=== PATIENT | female | born 1990 | race Caucasian/White ===

== ENCOUNTER 2021-01-29 02:54 | Emergency (ER) | payer OTHER, SELFPAY ==
--- NOTE | ~2021-01-29 | XR_ITS ---
EXAMINATION: XR ANKLE, RIGHT CLINICAL INFORMATION: Ankle pain COMPARISON: None TECHNIQUE: 3 views of the right ankle. FINDINGS: Osseous alignment is anatomic. No acute fracture is seen. No significant effusion. There is mild soft tissue swelling at the ankle. XR/XR ankle RT min 3V IMPRESSION: No acute osseous findings. Mild soft tissue swelling.
--- NOTE | 2021-01-29 06:30 | PC.NURSE ---
SEE PAPER DOCUMENTATION. RIGHT ANKLE WRAPPED WITH ANA M WRAP. PT BROUGHT TO FRONT ENTRANCE IN FOR RIDE TO [facility] BY HOSPITAL SHUTTLE.
--- NOTE | 2021-01-29 06:35 | ED.LOWEXIN ---
HPI - Extremity Injury (Lower) General Time Seen by Provider: 01/29/21 06:29 History of Present Illness HPI Narrative: SEE DOWN TIME PAPERWORK Related Data Allergies Allergy/AdvReac Type Severity Reaction Status Date / Time Penicillins [PENICILLINS] Allergy Severe ANAPHYLAXIS Unverified 05/09/20 17:17 soap [SOAP] Allergy Intermediate ITCHING Unverified 05/09/20 17:17 acetaminophen [From TYLENOL] Allergy Unknown ANAPHYLAXIS Unverified 05/09/20 17:17 aspirin [ASA] Allergy Unknown ANAPHYLAXIS Unverified 05/09/20 17:17 latex [LATEX] Allergy Unknown ANAPHYLAXIS Unverified 05/09/20 17:17 Latex Allergy Unknown anaphylaxis Unverified 02/08/20 00:00 tramadol [TRAMADOL] Allergy Unknown HIVES Unverified 05/09/20 17:17 / cats Allergy Unknown moderately Uncoded 01/05/13 00:00 severe Shellfish Allergy Unknown Uncoded 02/08/20 00:00 tramadol Allergy Unknown rash Uncoded 01/05/13 00:00 PMFSH Social History Social History Advance Directives: No Advance Directives Information Provided: No
== END 2021-01-29 06:56 | disposition home or self-care (01) ==
PROVIDERS: Emergency Provider Student in an Organized Health Care Education/Training Program
DX: S93.401A Sprain of unspecified ligament of right ankle, initial encounter (principal); S60.512A Abrasion of left hand, initial encounter; S60.511A Abrasion of right hand, initial encounter; S96.911A Strain of unspecified muscle and tendon at ankle and foot level, right foot, initial encounter; Y04.2XXA Assault by strike against or bumped into by another person, initial encounter; Y93.01 Activity, walking, marching and hiking; Y92.414 Local residential or business street as the place of occurrence of the external cause; Y99.9 Unspecified external cause status
CPT/HCPCS: 73610; 99283

== ENCOUNTER 2021-03-06 17:42 | Emergency (ER) | payer OTHER, SELFPAY ==
[2021-03-06 17:43] VITALS: BP 122/91; PULSE 110; RESP 18; TEMP 36.6; O2SAT 99; BMI 16.6
== END 2021-03-06 18:48 | disposition left against medical advice (07) ==
PROVIDERS: Emergency Provider Emergency Medicine
DX: F19.90 Other psychoactive substance use, unspecified, uncomplicated (principal)
CPT/HCPCS: 99281

== ENCOUNTER 2021-03-26 22:14 | Emergency (ER) | payer OTHER, SELFPAY ==
[2021-03-26 22:24] VITALS: BP 101/73; PULSE 117; RESP 24; TEMP 36.6; O2SAT 99; BMI 17.3
[2021-03-26] MEDS: LORazepam 1 MG TABLET 2 MG PO (22:50)
--- NOTE | 2021-03-26 23:05 | PC.NURSE ---
BHN referral completed via telephone by speaking with Renée overnight continuous improvement specialist, no ETA at this time, patient reported anxiety 5/10, HR 117, provider notified/ordered Ativan 2 mg/ administered as ordered/pending effect, will continue to monitor.
[2021-03-26 23:22] LABS: MANUAL DIFF FLAG NO
[2021-03-26 23:24] LABS: Basophils Percent Auto 0.3 % (0-2); Eosinophils Absolute Auto 0.1 X10*3/uL (0.0-0.4); Eosinophils Percent Auto 0.5 % (0-4); Hematocrit 33.6 % (37-47); Hemoglobin 11.2 g/dl (12.0-16.0); Imm Gran Abs Auto 0.03 X10*3/uL (0.00-0.03); Imm Gran Pct Auto 0.3 % (0.0-0.4); Lymphocytes Absolute Auto 1.2 X10*3/uL (1.2-4.9); Lymphocytes Percent Auto 11.1 % (20-40); Mean Corpuscular HGB Conc 33.3 g/dl (31.0-35.0); Mean Corpuscular Volume 78.1 fL (80-98); Mean Platelet Volume 8.9 fL (9.4-12.3); Monocytes Absolute Auto 0.5 X10*3/uL (0.1-1.2); Monocytes Percent Auto 4.6 % (2-11); Neutrophils Absolute Auto 9.1 X10*3/uL (2.0-8.3); Neutrophils Percent Auto 83.2 % (45-73); Platelet Count 394 X10*3/uL (160-400); Red Cell Distribution Width 14.3 % (11.0-16.0)
[2021-03-26 23:25] LABS: Glucose Urine UA NEG (NEG); Leukocyte Esterase Urine 1+ (NEG); Nitrite Urine NEG (NEG); Specific Gravity - Urine >= 1.030 (1.005-1.025); UACC Culture Trigger YES; Urine Blood 1+ (NEG); Urine Ketones NEG (NEG); Urine Protein 2+ MG/DL (NEG-TRACE)
[2021-03-26 23:35] LABS: COVID-19 Test Negative (Negative); IDNOW Serial# 9DD0AD1C
[2021-03-26 23:36] LABS: UPreg QC Valid YES; Urine Pregnancy NEGATIVE (NEGATIVE)
[2021-03-26 23:38] LABS: Appearance Urine HAZY; Color Urine YELLOW
[2021-03-26 23:46] LABS: Ethanol < 10 mg/dL
[2021-03-26 23:48] LABS: Amphetamine Screen Urine Not Detected (Not Detect); Barbiturates, Urine Not Detected (Not Detect); Benzodiazepines Screen Urine Not Detected (Not Detect); Cannabinoid Screen Urine Not Detected (Not Detect); Cocaine Screen Urine POSITIVE (Not Detect); Opiate Screen Urine POSITIVE (Not Detect); Phencyclidine Screen Urine Not Detected (Not Detect)
[2021-03-26 23:49] LABS: Bacteria Urine TRACE /LPF; Mucus Urine TRACE /LPF; Squamous Epithelial Cell Urine 2+ /LPF; UACC CULT YES
[2021-03-26 23:50] LABS: Alanine Aminotransferase 14 U/L (0-31); Albumin Level 3.8 g/dL (3.5-5.0); Alkaline Phosphatase 105 U/L (39-117); Anion Gap 13 (12-20); Aspartate Amino Transferase 25 U/L (5-31); Bilirubin Direct 0.2 mg/dL (0.0-0.5); Bilirubin Total 0.3 mg/dL (0.0-1.0); Blood Urea Nitrogen 11 mg/dL (9-16); Carbon Dioxide 27 mmol/L (22-29); Chloride 99 mmol/L (96-108); Creatinine Clr Calc Pharmacy 73.1; Estimated Glomerular Filt Rate > 60; Glucose Random 110 mg/dL (60-115); Magnesium 2.3 mg/dL (1.6-2.6); Potassium 3.6 mmol/L (3.3-5.1); Sodium 135 mmol/L (135-145); Total Protein 8.6 g/dL (6.5-8.0)
[2021-03-26 23:50] LABS: Granular Casts Urine 0-2 /LPF
--- NOTE | 2021-03-27 00:28 | MHC.CARE ---
Pt is a 30 year old female who presents to [facility] [place] EMS and [facility]PD. Pt reportedly went to a store and called PD reporting that someone is following her . Pt was observed with no shoes on. Pt arrived to [facility] visibly anxious and was given ativan. CARE team attempted to assess pt. pt reports she came to ED because I felt unsafe I was running away from someone that was following me . Pt reports she does not know the person and this has happened 2-3 times. She reports feeling scared and unsafe. Pt asks this greeting card writer more than once if clinician can come back because she is feeling too sleepy and is not used to ativan . She states she would like to provide more accurate information when she is more alert and awake. Pt refused to provide additional information and not able to be interviewed at this time. Pt's tox screen was positive for opiates and cocaine. Unknown if this is substance use related and should be assessed tomorrow once more alert.
--- NOTE | 2021-03-27 00:31 | PC.NURSE ---
Patient appropriately refused to comply with care team assessment because she thinks she is tired and sleepy at this time, wont be able to express her concerns in rightful manner. VSS. Denied distress. Will continue to monitor.
[2021-03-27 00:32] VITALS: BP 96/55; PULSE 90; RESP 16; TEMP 36.5; O2SAT 99
--- NOTE | 2021-03-27 01:19 | ED_ITS ---
HPI - Psych General Chief Complaint: Psychiatric Symptoms Stated Complaint: Psych Eval Time Seen by Provider: 03/26/21 22:47 Source: patient Mode of arrival: ambulatory Limitations: no limitations History of Present Illness HPI Narrative: Patient brought to the ED for delusions. Patient thinks drug dealers or comming after her because they think they told the [employer] about the location. Patient did not see anyone chasing her, but felt somebody coming after so she ran out from the building and life management teacher were called. Patient admits to drug use. Related Data Allergies Allergy/AdvReac Type Severity Reaction Status Date / Time Penicillins [PENICILLINS] Allergy Severe ANAPHYLAXIS Unverified 05/09/20 17:17 soap [SOAP] Allergy Intermediate ITCHING Unverified 05/09/20 17:17 acetaminophen [From TYLENOL] Allergy Unknown ANAPHYLAXIS Unverified 05/09/20 17:17 aspirin [ASA] Allergy Unknown ANAPHYLAXIS Unverified 05/09/20 17:17 latex [LATEX] Allergy Unknown ANAPHYLAXIS Unverified 05/09/20 17:17 Latex Allergy Unknown anaphylaxis Unverified 02/08/20 00:00 tramadol [TRAMADOL] Allergy Unknown HIVES Unverified 05/09/20 17:17 / cats Allergy Unknown moderately Uncoded 01/05/13 00:00 severe Shellfish Allergy Unknown Uncoded 02/08/20 00:00 tramadol Allergy Unknown rash Uncoded 01/05/13 00:00 Review of Systems Review of Systems: Yes all other systems are reviewed and are negative Constitutional: Constitutional: Reports as per HPI and Reports no additional constitutional complaints Eyes: Eyes: Reports as per HPI and Reports no additional eye complaints ENT: Reports system reviewed and no additional complaints, except as documented and Reports as per HPI Cardiovascular: Cardiovascular: Reports as per HPI and Reports no additional cardiovascular complaints Respiratory: Respiratory: Reports as per HPI and Reports no additional respiratory complaints Gastrointestinal: Gastrointestinal: Reports as per HPI and Reports no additional gastrointestinal complaints Genitourinary: Genitourinary: Reports no additional female genitourinary complaints and Reports as per HPI Musculoskeletal: Musculoskeletal: Reports no additional musculoskeletal co mplaints and Reports as per HPI Integumentary/Breasts: Skin/Breast: Reports system reviewed and no additional complaints, except as docu and Reports as per HPI Neurologic: Reports system reviewed and no additional complaints, except as documented and Reports as per HPI Psychiatric: Psychiatric: Reports no additional psychiatric complaints and Reports as per HPI Comments: Delusional [facility] Past Medical History Medical History (Updated 03/27/21 @ 01:23 by LAINE Mcmahon) Substance abuse Social History Social History Advance Directives: No Advance Directives Information Provided: Yes Patient : No Physical Exam Vital Signs: Vital Signs: Last Vital Signs Temp 97.7 F 03/27/21 00:32 Pulse 90 03/27/21 00:32 Resp 16 03/27/21 00:32 BP 96/55 L 03/27/21 00:32 Pulse Ox 99 03/27/21 00:32 Body Mass Index 17.3 Const: General: cooperative, healthy appearing, comfortable, no acute distress, well developed, alert and awake Orientation/consciousness: patient oriented x3 HENMT: Head: Yes normal to inspection, Yes No palpable skull fracture present, Yes normocephalic and Yes atraumatic Eyes: General: appearance normal, both eyes and all related structures Neck: Neck: Yes normal visual inspection, Yes full ROM and Yes no meningeal signs Chest: Chest palpation & inspection: normal inspection of the chest and normal palpation of entire chest wall Resp: Effort & Inspection: normal respiratory effort and able to speak in complete sentences Auscultation: clear to auscultation bilaterally Cardio: Jugular venous distension: no JVD Heart sounds: S1 normal heart sound present and S2 normal heart sound present GI: Inspection: Yes normal to inspection Palpation (GI): Soft to palpation, not firm, nontender, no guarding and not rigid : General: No CVA tenderness and Yes no CVA tenderness Back/Spine/Pelvis: Back: no CVA tenderness, No CVA tenderness and No back tenderness Skin: General skin exam: no rashes or lesions noted and elasticity normal Neuro: General: patient oriented x3, gait normal, tone normal, no meningeal signs and CN's II-XI intact bilaterally Cranial nerves: Yes CN's II-XII intact bilaterally Extrem: General: Yes normal to inspection and Yes full ROM Psych: Other: Delusional. Paranoid Appearance: disheveled Course Course Course Narrative: Patient have labs drawn. Reevaluation(s) Reevaluation #1: Patient will be waiting for [facility] evaluation morning Time: 01:22 MDM - Psych MDM Narrative Medical decision making narrative: Delusional paranoid Lab Data Result diagrams: 03/26/21 23:16 03/26/21 23:16 Labs: Lab Results 03/26/21 03/26/21 03/26/21 Range/Units 23:05 23:05 23:05 WBC (4.8-10.8) X10*3/uL RBC (4.20-5.50) X10*6/uL Hgb (12.0-16.0) g/dl Hct (37-47) % MCV (80-98) fL MCH (27.0-33.0) pg MCHC (31.0-35.0) g/dl RDW (11.0-16.0) % Plt Count (160-400) X10*3/uL MPV (9.4-12.3) fL Immature Gran % (Auto) (0.0-0.4) % Neut % (Auto) (45-73) % Lymph % (Auto) (20-40) % Young % (Auto) (2-11) % Eos % (Auto) (0-4) % Baso % (Auto) (0-2) % Lymph # (Auto) (1.2-4.9) X10*3/uL Young # (Auto) (0.1-1.2) X10*3/uL Eos # (Auto) (0.0-0.4) X10*3/uL Baso # (Auto) (0.0-0.2) X10*3/uL Abs Immat Gran (auto) (0.00-0.03) X10*3/uL Absolute Neuts (auto) (2.0-8.3) X10*3/uL Absolute Nucleated RBC (0.0-0.012) X10*3/uL Nucleated RBC % (auto) (0.0-0.2) /100WBC Sodium (135-145) mmol/L Potassium (3.3-5.1) mmol/L Chloride (96-108) mmol/L Carbon Dioxide (22-29) mmol/L Anion Gap (12-20) BUN (9-16) mg/dL Creatinine (0.5-1.4) mg/dL Estim Creat Clear Calc Estimated GFR Random Glucose (60-115) mg/dL Calcium (8.4-10.2) mg/dL Magnesium (1.6-2.6) mg/dL Total Bilirubin (0.0-1.0) mg/dL Direct Bilirubin (0.0-0.5) mg/dL AST (5-31) U/L ALT (0-31) U/L Alkaline Phosphatase (39-117) U/L Total Protein (6.5-8.0) g/dL Albumin (3.5-5.0) g/dL Urine Color YELLOW Urine Appearance HAZY Urine pH 6.0 (5.0-8.0) Ur Specific [place] >= 1.030 H (1.005-1.025) Urine Protein 2+ H (NEG-TRACE) MG/DL Urine Glucose (UA) NEG (NEG) MG/DL Urine Ketones NEG (NEG) MG/DL Urine Blood 1+ H (NEG) Urine Nitrite NEG (NEG) Ur Leukocyte Esterase 1+ H (NEG) Urine RBC 1-4 (0) /HPF Urine WBC 10-14 H (0-4) /HPF Ur Squamous Epith Cells 2+ /LPF Urine Bacteria TRACE /LPF Granular Casts 0-2 /LPF Urine Mucus TRACE /LPF Urine Test NEGATIVE (NEGATIVE) Urine Opiates Screen (Not Detect) Ur Barbiturates Screen (Not Detect) Ur Phencyclidine Scrn (Not Detect) Ur Amphetamines Screen (Not Detect) U Benzodiazepines Scrn (Not Detect) Urine Cocaine Screen (Not Detect) U Marijuana (THC) Screen (Not Detect) Ethyl Alcohol mg/dL COVID-19 (ANGIE) Negative (Negative) COVID-19 Clin Com See Note 03/26/21 03/26/21 03/26/21 Range/Units 23:05 23:16 23:16 WBC 11.0 H (4.8-10.8) X10*3/uL RBC 4.30 (4.20-5.50) X10*6/uL Hgb 11.2 L (12.0-16.0) g/dl Hct 33.6 L (37-47) % MCV 78.1 L (80-98) fL MCH 26.0 L (27.0-33.0) pg MCHC 33.3 (31.0-35.0) g/dl RDW 14.3 (11.0-16.0) % Plt Count 394 (160-400) X10*3/uL MPV 8.9 L (9.4-12.3) fL Immature Gran % (Auto) 0.3 (0.0-0.4) % Neut % (Auto) 83.2 H (45-73) % Lymph % (Auto) 11.1 L (20-40) % Young % (Auto) 4.6 (2-11) % Eos % (Auto) 0.5 (0-4) % Baso % (Auto) 0.3 (0-2) % Lymph # (Auto) 1.2 (1.2-4.9) X10*3/uL Young # (Auto) 0.5 (0.1-1.2) X10*3/uL Eos # (Auto) 0.1 (0.0-0.4) X10*3/uL Baso # (Auto) 0.0 (0.0-0.2) X10*3/uL Abs Immat Gran (auto) 0.03 (0.00-0.03) X10*3/uL Absolute Neuts (auto) 9.1 H (2.0-8.3) X10*3/uL Absolute Nucleated RBC 0.000 (0.0-0.012) X10*3/uL Nucleated RBC % (auto) 0.0 (0.0-0.2) /100WBC Sodium 135 (135-145) mmol/L Potassium 3.6 (3.3-5.1) mmol/L Chloride 99 (96-108) mmol/L Carbon Dioxide 27 (22-29) mmol/L Anion Gap 13 (12-20) BUN 11 (9-16) mg/dL Creatinine 0.83 (0.5-1.4) mg/dL Estim Creat Clear Calc 73.1 Estimated GFR > 60 Random Glucose 110 (60-115) mg/dL Calcium 9.0 (8.4-10.2) mg/dL Magnesium 2.3 (1.6-2.6) mg/dL Total Bilirubin 0.3 (0.0-1.0) mg/dL Direct Bilirubin 0.2 (0.0-0.5) mg/dL AST 25 (5-31) U/L ALT 14 (0-31) U/L Alkaline Phosphatase 105 (39-117) U/L Total Protein 8.6 H (6.5-8.0) g/dL Albumin 3.8 (3.5-5.0) g/dL Urine Color Urine Appearance Urine pH (5.0-8.0) Ur Specific [place] (1.005-1.025) Urine Protein (NEG-TRACE) MG/DL Urine Glucose (UA) (NEG) MG/DL Urine Ketones (NEG) MG/DL Urine Blood (NEG) Urine Nitrite (NEG) Ur Leukocyte Esterase (NEG) Urine RBC (0) /HPF Urine WBC (0-4) /HPF Ur Squamous Epith Cells /LPF Urine Bacteria /LPF Granular Casts /LPF Urine Mucus /LPF Urine Test (NEGATIVE) Urine Opiates Screen POSITIVE H (Not Detect) Ur Barbiturates Screen Not Detected (Not Detect) Ur Phencyclidine Scrn Not Detected (Not Detect) Ur Amphetamines Screen Not Detected (Not Detect) U Benzodiazepines Scrn Not Detected (Not Detect) Urine Cocaine Screen POSITIVE H (Not Detect) U Marijuana (THC) Screen Not Detected (Not Detect) Ethyl Alcohol mg/dL COVID-19 (ANGIE) (Negative) COVID-19 Clin Com 03/26/21 Range/Units 23:16 WBC (4.8-10.8) X10*3/uL RBC (4.20-5.50) X10*6/uL Hgb (12.0-16.0) g/dl Hct (37-47) % MCV (80-98) fL MCH (27.0-33.0) pg MCHC (31.0-35.0) g/dl RDW (11.0-16.0) % Plt Count (160-400) X10*3/uL MPV (9.4-12.3) fL Immature Gran % (Auto) (0.0-0.4) % Neut % (Auto) (45-73) % Lymph % (Auto) (20-40) % Young % (Auto) (2-11) % Eos % (Auto) (0-4) % Baso % (Auto) (0-2) % Lymph # (Auto) (1.2-4.9) X10*3/uL Young # (Auto) (0.1-1.2) X10*3/uL Eos # (Auto) (0.0-0.4) X10*3/uL Baso # (Auto) (0.0-0.2) X10*3/uL Abs Immat Gran (auto) (0.00-0.03) X10*3/uL Absolute Neuts (auto) (2.0-8.3) X10*3/uL Absolute Nucleated RBC (0.0-0.012) X10*3/uL Nucleated RBC % (auto) (0.0-0.2) /100WBC Sodium (135-145) mmol/L Potassium (3.3-5.1) mmol/L Chloride (96-108) mmol/L Carbon Dioxide (22-29) mmol/L Anion Gap (12-20) BUN (9-16) mg/dL Creatinine (0.5-1.4) mg/dL Estim Creat Clear Calc Estimated GFR Random Glucose (60-115) mg/dL Calcium (8.4-10.2) mg/dL Magnesium (1.6-2.6) mg/dL Total Bilirubin (0.0-1.0) mg/dL Direct Bilirubin (0.0-0.5) mg/dL AST (5-31) U/L ALT (0-31) U/L Alkaline Phosphatase (39-117) U/L Total Protein (6.5-8.0) g/dL Albumin (3.5-5.0) g/dL Urine Color Urine Appearance Urine pH (5.0-8.0) Ur Specific [place] (1.005-1.025) Urine Protein (NEG-TRACE) MG/DL Urine Glucose (UA) (NEG) MG/DL Urine Ketones (NEG) MG/DL Urine Blood (NEG) Urine Nitrite (NEG) Ur Leukocyte Esterase (NEG) Urine RBC (0) /HPF Urine WBC (0-4) /HPF Ur Squamous Epith Cells /LPF Urine Bacteria /LPF Granular Casts /LPF Urine Mucus /LPF Urine Test (NEGATIVE) Urine Opiates Screen (Not Detect) Ur Barbiturates Screen (Not Detect) Ur Phencyclidine Scrn (Not Detect) Ur Amphetamines Screen (Not Detect) U Benzodiazepines Scrn (Not Detect) Urine Cocaine Screen (Not Detect) U Marijuana (THC) Screen (Not Detect) Ethyl Alcohol < 10 mg/dL COVID-19 (ANGIE) (Negative) COVID-19 Clin Com Discharge Plan Discharge Clinical Impression: Delusional disorder
--- NOTE | 2021-03-27 05:55 | PC.NURSE ---
Patient in bed appears sleeping, no distress observed/reported, patient refused to talk to care team, awaiting BHN evaluation in the morning, med compliant, patient is not on any medication at this time, VSS, will continue to monitor
--- NOTE | 2021-03-27 07:03 | PC.NURSE ---
patient appears to remain at rest at present, patient appears in no distress, respirations are even and unlabored
--- NOTE | 2021-03-27 09:42 | MHC.CARE ---
899 CARE Team attempted to meet with patient in 2, she would not engage in an interview said she was not feeling well. 929 Patient sitting up in bed eating breakfast stated, I feel like crap, asked if she takes Methadone or Suboxone, she reported getting methadone from [facility] in [place] but has not taken it in a while, did not remember last time. Decline to answer any questions about her mental health, how we can be of help to her. Updated RN about MAT.
[2021-03-27 09:43] VITALS: BP 120/61; PULSE 83; RESP 16; TEMP 36.9; O2SAT 100
--- NOTE | 2021-03-27 09:49 | PC.NURSE ---
per care team request t/w attempted to verify dose at [facility], left message. inquired to patient last dose and client stated she was on 75mg but may not have gone for >7days
[2021-03-27] MEDS: Nitrofurantoin Monohyd/M-Cryst 100 MG CAPSULE PO (10:01)
--- NOTE | 2021-03-27 12:19 | MHC.CARE ---
Patient is a 30 year-old single, woman who was brought to the ED by ambulance in the community; she had reported that she was being followed by someone and was afraid. In an interview with the CARE Team, patient explained that after she bought heroin last night a man was following her and she felt unable to get away safely so she sought help from the police. She expressed an understanding that her drug use consistently puts her in dangerous situations and stated she would like help to make changes. Patient was alert and oriented, engaged easily after getting some needed rest. Appeared thin and disheveled, maintained appropriate eye contact, was calm and cooperative, spoke softly and was polite. Patient denied any psychotic symptoms such as hallucinations and did not appear to be delusional or preoccupied by internal stimuli. Reported that she has no history of suicide attempts or gestures, has never been hospitalized for psychiatric reasons, is future oriented and denied having thoughts to end her life. Patient is not having a mental health crisis and no further intervention from the clinical team is indicated; she is referred to the Recovery Team for detox placement.
--- NOTE | 2021-03-27 12:30 | MHC.RECOVRN ---
T/w met with pt in 2 to discuss [place] treatment. Pt sleeping and waking to voice. Pt difficult to engage in conversation, providing minimal information. Pt reports having been on both methadone and Suboxone in the past. Most recently methadone. Pt interested in ATS level of care. Case discussed with CARE Team and Mysql Database Developer. Mysql Database Developer to conduct ATS bedsearch.
--- NOTE | 2021-03-27 13:30 | MHC.RECOVSUP ---
? Reason for consult:Continuity of care o Current location: o Identified substance use concern: Heroine - Withdrawal - Seeking ATS (detox) - Support ? Intervention: o ATS bed search started/completed/in process o Community resources provided o Harm reduction discussion ? Plan: o Referral to CCC o Bed search in progress to o Follow up tomorrow o Patient to follow up with [facility] after discharge ? Additional information:Bed unavailibility,discussed MAT, Pt. wants to be referred to the CCC.
[2021-03-27 16:01] VITALS: BP 99/65; PULSE 86; RESP 15; TEMP 37.1; O2SAT 100
[2021-03-27] MEDS: Ondansetron ODT 4 MG TAB.RAPDIS TRANSLINGU (16:25)
--- NOTE | 2021-03-27 16:43 | PC.NURSE ---
No Detox bed available per recovery team. Appointment made outpatient with [facility]. Pt missed appointment with Bobbi Bonilla at 3:30 as she was refusing to go stating that she did not feel well due to withdrawal. Scoring 11 (mild) on opiate withdrawal scale. VSS. Pt offered alternative plan of SL Zofran and suboxone film before discharge. Pt then stating are you sure that I am withdrawing enough to take the suboxone and then refusing to take the film. Pt opted to be discharged without the suboxone film. Pt informed that script for suboxone was sent to her pharmacy along with abx for uti. She states that she understands the plan. Pt given list of homeless shelters as well as a list of detox facilities.
== END 2021-03-27 16:42 | disposition home or self-care (01) ==
PROVIDERS: Physician Assistant; Emergency Provider Emergency Medicine; PCP Internal Medicine
DX: F22 Delusional disorders (principal); F19.10 Other psychoactive substance abuse, uncomplicated; Z20.822 Contact with and (suspected) exposure to COVID-19; F41.9 Anxiety disorder, unspecified
CPT/HCPCS: 36415; 80048; 80076; 80307; 81001; 81025; 82077; 83735; 85025; 87086; 87147; 87635; 99284; 99285

== ENCOUNTER 2021-04-03 23:20 | Emergency (ER) | payer OTHER, SELFPAY ==
[2021-04-04 00:50] VITALS: BP 104/63; PULSE 75; RESP 16; TEMP 37.3; O2SAT 98; BMI 16.6
[2021-04-04 03:35] VITALS: BP 80/45; PULSE 72; RESP 12; TEMP 37.5; O2SAT 96
--- NOTE | 2021-04-04 03:45 | PC.NURSE ---
dr khalil made aware of pt's BP.
[2021-04-04] MEDS: Ondansetron ODT 4 MG TAB.RAPDIS TRANSLINGU (03:48)
[2021-04-04 04:30] VITALS: BP 92/51; PULSE 66; RESP 13; O2SAT 98
--- NOTE | 2021-04-04 04:30 | PC.NURSE ---
pt reports improvement in nausea/vomiting since zofran.
[2021-04-04 04:46] LABS: Basophils Percent Auto 0.3 % (0-2); Eosinophils Absolute Auto 0.1 X10*3/uL (0.0-0.4); Eosinophils Percent Auto 1.6 % (0-4); Hematocrit 29.5 % (37-47); Hemoglobin 9.6 g/dl (12.0-16.0); Imm Gran Abs Auto 0.01 X10*3/uL (0.00-0.03); Imm Gran Pct Auto 0.1 % (0.0-0.4); Lymphocytes Absolute Auto 1.7 X10*3/uL (1.2-4.9); MANUAL DIFF FLAG NO; Mean Corpuscular HGB Conc 32.5 g/dl (31.0-35.0); Mean Corpuscular Volume 79.9 fL (80-98); Mean Platelet Volume 8.8 fL (9.4-12.3); Monocytes Absolute Auto 0.6 X10*3/uL (0.1-1.2); Monocytes Percent Auto 7.7 % (2-11); Neutrophils Absolute Auto 5.4 X10*3/uL (2.0-8.3); Neutrophils Percent Auto 68.3 % (45-73); Platelet Count 293 X10*3/uL (160-400); Red Blood Count 3.69 X10*6/uL (4.20-5.50); Red Cell Distribution Width 14.8 % (11.0-16.0); White Blood Count 7.9 X10*3/uL (4.8-10.8)
[2021-04-04 05:07] LABS: Ethanol < 10 mg/dL
[2021-04-04 05:11] LABS: Alanine Aminotransferase 12 U/L (0-31); Albumin Level 3.1 g/dL (3.5-5.0); Alkaline Phosphatase 73 U/L (39-117); Anion Gap 7 (12-20); Aspartate Amino Transferase 16 U/L (5-31); Bilirubin Total 0.3 mg/dL (0.0-1.0); Blood Urea Nitrogen 11 mg/dL (9-16); Calcium 8.3 mg/dL (8.4-10.2); Carbon Dioxide 29 mmol/L (22-29); Chloride 104 mmol/L (96-108); Creatinine Clr Calc Pharmacy 84.6; Estimated Glomerular Filt Rate > 60; Glucose Random 99 mg/dL (60-115); Lipase 22 U/L (8-78); Potassium 3.4 mmol/L (3.3-5.1); Sodium 137 mmol/L (135-145); Total Protein 6.7 g/dL (6.5-8.0)
--- NOTE | 2021-04-04 05:13 | ED.GENADULT ---
HPI - General Adult General Chief complaint: General Medical Stated complaint: ?Clearance Time Seen by Provider: 04/04/21 03:57 Source: patient Mode of arrival: ambulatory History of Present Illness HPI narrative: 30-year-old female with history IVDA last use was approximately 8 hours ago and presents with complaints of feeling nauseous, tired and feeling like she had been ?drugged?. Otherwise she denies any fever, chills, sore throat, cough, shortness of breath, chest pain/palpitations, GI or symptoms. Related Data Previous Rx's Medication Instructions Recorded buprenorphine 4 mg-naloxone 1 mg 1 film SUBLINGUAL DAILY 4 Days #4 03/27/21 sublingual film (Suboxone) ea nitrofurantoin 100 mg PO BID 7 Days #14 cap 03/27/21 monohydrate/macrocrystals 100 mg capsule (Macrobid) sulfamethoxazole 800 1 tab PO Q12H 3 Days #6 tab 04/04/21 mg-trimethoprim 160 mg tablet (Bactrim DS) Allergies Allergy/AdvReac Type Severity Reaction Status Date / Time Penicillins [PENICILLINS] Allergy Severe ANAPHYLAXIS Unverified 05/09/20 17:17 soap [SOAP] Allergy Intermediate ITCHING Unverified 05/09/20 17:17 acetaminophen [From TYLENOL] Allergy Unknown ANAPHYLAXIS Unverified 05/09/20 17:17 aspirin [ASA] Allergy Unknown ANAPHYLAXIS Unverified 05/09/20 17:17 latex [LATEX] Allergy Unknown ANAPHYLAXIS Unverified 05/09/20 17:17 Latex Allergy Unknown anaphylaxis Unverified 02/08/20 00:00 tramadol [TRAMADOL] Allergy Unknown HIVES Unverified 05/09/20 17:17 / cats Allergy Unknown moderately Uncoded 01/05/13 00:00 severe Shellfish Allergy Unknown Uncoded 02/08/20 00:00 tramadol Allergy Unknown rash Uncoded 01/05/13 00:00 Review of Systems Review of Systems: Pertinent positives and negatives as stated in HPI 10 point review of systems is otherwise negative. PMFSH Past Medical History Source: nursing notes reviewed Medical History Substance abuse Social History Social History Advance Directives: No Advance Directives Information Provided: No Physical Exam Vital Signs: Vital Signs: Last Vital Signs Temp 99.1 F 04/04/21 05:17 Pulse 60 04/04/21 06:33 Resp 12 04/04/21 06:33 BP 92/54 L 04/04/21 06:33 Pulse Ox 97 04/04/21 06:33 Body Mass Index 16.6 VITAL SIGNS: Reviewed. GENERAL: Well developed, well nourished, in no acute distress. HEAD: Normocephalic/atraumatic EYES: PERRLA, EOMI LUNGS: Normal breath sounds. No adventitious sounds or accessory muscle use. SpO2<97> CARDIOVASCULAR: Regular rate and rhythm without noted murmurs ABDOMEN: Soft, non-tender, non-distended with bowel sounds. SKIN: Inspection of the skin reveals no rashes NEUROLOGIC: Alert and oriented x 4. Strength and sensation to light touch were grossly intact x 4. Course Course Course Narrative: 30-year-old female with history and clinical presentation consistent with IVDA and on review of all investigations patient has a UTI for which she will receive initial antibiotics here in the emergency room and then be discharged with remaining course. Medical Decision Making Lab Data Result diagrams: 04/04/21 04:41 04/04/21 04:41 Labs: Lab Results 04/04/21 04/04/21 04/04/21 Range/Units 04:41 04:41 04:41 WBC 7.9 (4.8-10.8) X10*3/uL RBC 3.69 L (4.20-5.50) X10*6/uL Hgb 9.6 L (12.0-16.0) g/dl Hct 29.5 L (37-47) % MCV 79.9 L (80-98) fL MCH 26.0 L (27.0-33.0) pg MCHC 32.5 (31.0-35.0) g/dl RDW 14.8 (11.0-16.0) % Plt Count 293 D (160-400) X10*3/uL MPV 8.8 L (9.4-12.3) fL Immature Gran % (Auto) 0.1 (0.0-0.4) % Neut % (Auto) 68.3 (45-73) % Lymph % (Auto) 22.0 (20-40) % [place] % (Auto) 7.7 (2-11) % Eos % (Auto) 1.6 (0-4) % Baso % (Auto) 0.3 (0-2) % Lymph # (Auto) 1.7 (1.2-4.9) X10*3/uL [place] # (Auto) 0.6 (0.1-1.2) X10*3/uL Eos # (Auto) 0.1 (0.0-0.4) X10*3/uL Baso # (Auto) 0.0 (0.0-0.2) X10*3/uL Abs Immat Gran (auto) 0.01 (0.00-0.03) X10*3/uL Absolute Neuts (auto) 5.4 (2.0-8.3) X10*3/uL Absolute Nucleated RBC 0.000 (0.0-0.012) X10*3/uL Nucleated RBC % (auto) 0.0 (0.0-0.2) /100WBC Sodium 137 (135-145) mmol/L Potassium 3.4 (3.3-5.1) mmol/L Chloride 104 (96-108) mmol/L Carbon Dioxide 29 (22-29) mmol/L Anion Gap 7 L (12-20) BUN 11 (9-16) mg/dL Creatinine 0.69 (0.5-1.4) mg/dL Estim Creat Clear Calc 84.6 Estimated GFR > 60 Random Glucose 99 (60-115) mg/dL Calcium 8.3 L D (8.4-10.2) mg/dL Total Bilirubin 0.3 (0.0-1.0) mg/dL AST 16 (5-31) U/L ALT 12 (0-31) U/L Alkaline Phosphatase 73 D (39-117) U/L Total Protein 6.7 D (6.5-8.0) g/dL Albumin 3.1 L (3.5-5.0) g/dL Lipase 22 (8-78) U/L Urine Color Urine Appearance Urine pH (5.0-8.0) Ur Specific [place] (1.005-1.025) Urine Protein (NEG-TRACE) MG/DL Urine Glucose (UA) (NEG) MG/DL Urine Ketones (NEG) MG/DL Urine Blood (NEG) Urine Nitrite (NEG) Ur Leukocyte Esterase (NEG) Urine RBC (0) /HPF Urine WBC (0-4) /HPF Ur Squamous Epith Cells /LPF Urine Bacteria /LPF Urine Mucus /LPF Urine Test (NEGATIVE) Urine Opiates Screen (Not Detect) Urine Fentanyl Screen (Not Detect) Ur Barbiturates Screen (Not Detect) Ur Phencyclidine Scrn (Not Detect) Ur Amphetamines Screen (Not Detect) U Benzodiazepines Scrn (Not Detect) Urine Cocaine Screen (Not Detect) U Marijuana (THC) Screen (Not Detect) Ethyl Alcohol < 10 mg/dL COVID-19 (ANGIE) (Negative) COVID-19 Clin Com 04/04/21 04/04/21 04/04/21 Range/Units 05:19 05:19 05:19 WBC (4.8-10.8) X10*3/uL RBC (4.20-5.50) X10*6/uL Hgb (12.0-16.0) g/dl Hct (37-47) % MCV (80-98) fL MCH (27.0-33.0) pg MCHC (31.0-35.0) g/dl RDW (11.0-16.0) % Plt Count (160-400) X10*3/uL MPV (9.4-12.3) fL Immature Gran % (Auto) (0.0-0.4) % Neut % (Auto) (45-73) % Lymph % (Auto) (20-40) % [place] % (Auto) (2-11) % Eos % (Auto) (0-4) % Baso % (Auto) (0-2) % Lymph # (Auto) (1.2-4.9) X10*3/uL [place] # (Auto) (0.1-1.2) X10*3/uL Eos # (Auto) (0.0-0.4) X10*3/uL Baso # (Auto) (0.0-0.2) X10*3/uL Abs Immat Gran (auto) (0.00-0.03) X10*3/uL Absolute Neuts (auto) (2.0-8.3) X10*3/uL Absolute Nucleated RBC (0.0-0.012) X10*3/uL Nucleated RBC % (auto) (0.0-0.2) /100WBC Sodium (135-145) mmol/L Potassium (3.3-5.1) mmol/L Chloride (96-108) mmol/L Carbon Dioxide (22-29) mmol/L Anion Gap (12-20) BUN (9-16) mg/dL Creatinine (0.5-1.4) mg/dL Estim Creat Clear Calc Estimated GFR Random Glucose (60-115) mg/dL Calcium (8.4-10.2) mg/dL Total Bilirubin (0.0-1.0) mg/dL AST (5-31) U/L ALT (0-31) U/L Alkaline Phosphatase (39-117) U/L Total Protein (6.5-8.0) g/dL Albumin (3.5-5.0) g/dL Lipase (8-78) U/L Urine Color YELLOW Urine Appearance CLEAR Urine pH 6.0 (5.0-8.0) Ur Specific [place] >= 1.030 H (1.005-1.025) Urine Protein 1+ H (NEG-TRACE) MG/DL Urine Glucose (UA) NEG (NEG) MG/DL Urine Ketones NEG (NEG) MG/DL Urine Blood TRACE (NEG) Urine Nitrite NEG (NEG) Ur Leukocyte Esterase 1+ H (NEG) Urine RBC 0-2 (0) /HPF Urine WBC 15-29 H (0-4) /HPF Ur Squamous Epith Cells 1+ /LPF Urine Bacteria TRACE /LPF Urine Mucus 4+ /LPF Urine Test NEGATIVE (NEGATIVE) Urine Opiates Screen (Not Detect) Urine Fentanyl Screen (Not Detect) Ur Barbiturates Screen (Not Detect) Ur Phencyclidine Scrn (Not Detect) Ur Amphetamines Screen (Not Detect) U Benzodiazepines Scrn (Not Detect) Urine Cocaine Screen (Not Detect) U Marijuana (THC) Screen (Not Detect) Ethyl Alcohol mg/dL COVID-19 (ANGIE) Negative (Negative) COVID-19 Clin Com See Note 04/04/21 Range/Units 05:19 WBC (4.8-10.8) X10*3/uL RBC (4.20-5.50) X10*6/uL Hgb (12.0-16.0) g/dl Hct (37-47) % MCV (80-98) fL MCH (27.0-33.0) pg MCHC (31.0-35.0) g/dl RDW (11.0-16.0) % Plt Count (160-400) X10*3/uL MPV (9.4-12.3) fL Immature Gran % (Auto) (0.0-0.4) % Neut % (Auto) (45-73) % Lymph % (Auto) (20-40) % [place] % (Auto) (2-11) % Eos % (Auto) (0-4) % Baso % (Auto) (0-2) % Lymph # (Auto) (1.2-4.9) X10*3/uL [place] # (Auto) (0.1-1.2) X10*3/uL Eos # (Auto) (0.0-0.4) X10*3/uL Baso # (Auto) (0.0-0.2) X10*3/uL Abs Immat Gran (auto) (0.00-0.03) X10*3/uL Absolute Neuts (auto) (2.0-8.3) X10*3/uL Absolute Nucleated RBC (0.0-0.012) X10*3/uL Nucleated RBC % (auto) (0.0-0.2) /100WBC Sodium (135-145) mmol/L Potassium (3.3-5.1) mmol/L Chloride (96-108) mmol/L Carbon Dioxide (22-29) mmol/L Anion Gap (12-20) BUN (9-16) mg/dL Creatinine (0.5-1.4) mg/dL Estim Creat Clear Calc Estimated GFR Random Glucose (60-115) mg/dL Calcium (8.4-10.2) mg/dL Total Bilirubin (0.0-1.0) mg/dL AST (5-31) U/L ALT (0-31) U/L Alkaline Phosphatase (39-117) U/L Total Protein (6.5-8.0) g/dL Albumin (3.5-5.0) g/dL Lipase (8-78) U/L Urine Color Urine Appearance Urine pH (5.0-8.0) Ur Specific [place] (1.005-1.025) Urine Protein (NEG-TRACE) MG/DL Urine Glucose (UA) (NEG) MG/DL Urine Ketones (NEG) MG/DL Urine Blood (NEG) Urine Nitrite (NEG) Ur Leukocyte Esterase (NEG) Urine RBC (0) /HPF Urine WBC (0-4) /HPF Ur Squamous Epith Cells /LPF Urine Bacteria /LPF Urine Mucus /LPF Urine Test (NEGATIVE) Urine Opiates Screen POSITIVE H (Not Detect) Urine Fentanyl Screen POSITIVE H (Not Detect) Ur Barbiturates Screen Not Detected (Not Detect) Ur Phencyclidine Scrn Not Detected (Not Detect) Ur Amphetamines Screen Not Detected (Not Detect) U Benzodiazepines Scrn Not Detected (Not Detect) Urine Cocaine Screen POSITIVE H (Not Detect) U Marijuana (THC) Screen Not Detected (Not Detect) Ethyl Alcohol mg/dL COVID-19 (ANGIE) (Negative) COVID-19 Clin Com Discharge Plan Discharge Clinical Impression: UTI (urinary tract infection), IVDA (intravenous drug abuse) complicating Patient Disposition: Home, Self-Care Instructions: Urinary Tract Infection in Women (ED) Additional Instructions: 1. Complete the entire course of your antibiotics. 2. Please follow-up with your primary care provider for re-evaluation. Return to the ER for acute worsening of symptoms. Prescriptions: New sulfamethoxazole-trimethoprim [Bactrim DS] 800-160 mg tablet 1 tab PO Q12H 3 Days Qty: 6 RF: 0 No Action nitrofurantoin monohyd/m-cryst [Macrobid] 100 mg capsule 100 mg PO BID 7 Days Qty: 14 RF: 0 buprenorphine-naloxone [Suboxone] 4-1 mg film 1 film sublingual DAILY 4 Days Qty: 4 RF: 0 Referrals: Physician,Unknown [Primary Care Provider] - 2 days
[2021-04-04 05:17] VITALS: BP 90/52; PULSE 57; RESP 12; TEMP 37.3; O2SAT 98
[2021-04-04 05:33] LABS: Glucose Urine UA NEG (NEG); Leukocyte Esterase Urine 1+ (NEG); Nitrite Urine NEG (NEG); Specific Gravity - Urine >= 1.030 (1.005-1.025); UACC Culture Trigger YES; Urine Blood TRACE (NEG); Urine Ketones NEG (NEG); Urine Protein 1+ MG/DL (NEG-TRACE)
[2021-04-04 05:43] LABS: COVID-19 Test Negative (Negative); IDNOW Serial# 9DD0AD1C
[2021-04-04 05:51] LABS: Appearance Urine CLEAR; Color Urine YELLOW
[2021-04-04 05:55] LABS: Bacteria Urine TRACE /LPF; Mucus Urine 4+ /LPF; RBC Urine 0-2 /HPF (0); Squamous Epithelial Cell Urine 1+ /LPF
[2021-04-04 05:56] LABS: UPreg QC Valid YES; Urine Pregnancy NEGATIVE (NEGATIVE)
[2021-04-04 05:57] LABS: Amphetamine Screen Urine Not Detected (Not Detect); Barbiturates, Urine Not Detected (Not Detect); Benzodiazepines Screen Urine Not Detected (Not Detect); Cannabinoid Screen Urine Not Detected (Not Detect); Cocaine Screen Urine POSITIVE (Not Detect); Opiate Screen Urine POSITIVE (Not Detect); Phencyclidine Screen Urine Not Detected (Not Detect)
[2021-04-04 06:00] LABS: Fentanyl, urine POSITIVE (Not Detect)
[2021-04-04 06:33] VITALS: BP 92/54; PULSE 60; RESP 12; O2SAT 97
== END 2021-04-04 07:22 | disposition home or self-care (01) ==
PROVIDERS: Emergency Provider Student in an Organized Health Care Education/Training Program
DX: O99.320 Drug use complicating pregnancy, unspecified trimester (principal); O23.40 Unspecified infection of urinary tract in pregnancy, unspecified trimester; Z3A.00 Weeks of gestation of pregnancy not specified; Z20.822 Contact with and (suspected) exposure to COVID-19; Z79.899 Other long term (current) drug therapy
CPT/HCPCS: 36415; 80053; 80307; 81001; 81025; 82077; 83690; 85025; 87086; 87147; 87635; 99283; 99284

== ENCOUNTER 2021-11-30 20:42 | Emergency (ER) | payer OTHER, SELFPAY ==
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
[2021-11-30 21:08] VITALS: BP 113/70; BP 120/84; PULSE 113; PULSE 120; RESP 15; TEMP 36.7; O2SAT 100; BMI 23.1
[2021-11-30 21:24] LABS: Appearance Urine CLEAR; Color Urine YELLOW; Glucose Urine UA NEG (NEG); Leukocyte Esterase Urine TRACE (NEG); Nitrite Urine NEG (NEG); Specific Gravity - Urine 1.025 (1.005-1.025); UACC Culture Trigger YES; Urine Blood TRACE (NEG); Urine Ketones NEG (NEG); Urine Protein 1+ MG/DL (NEG-TRACE)
[2021-11-30 21:37] LABS: Bacteria Urine 2+ /LPF; Mucus Urine 2+ /LPF; Squamous Epithelial Cell Urine 2+ /LPF
[2021-11-30 21:41] LABS: Amphetamine Screen Urine Not Detected (Not Detect); Barbiturates, Urine Not Detected (Not Detect); Benzodiazepines Screen Urine Not Detected (Not Detect); Cannabinoid Screen Urine Not Detected (Not Detect); Cocaine Screen Urine POSITIVE (Not Detect); Fentanyl, urine POSITIVE (Not Detect); Opiate Screen Urine POSITIVE (Not Detect); Phencyclidine Screen Urine Not Detected (Not Detect)
[2021-11-30 22:00] VITALS: BP 110/68; PULSE 90; RESP 15; TEMP 37.2; O2SAT 98
[2021-11-30 22:07] LABS: MANUAL DIFF FLAG NO
[2021-11-30 22:09] LABS: Basophils Percent Auto 0.3 % (0-2); Eosinophils Absolute Auto 0.1 X10*3/uL (0.0-0.4); Eosinophils Percent Auto 0.7 % (0-4); Hemoglobin 11.8 g/dl (12.0-16.0); Imm Gran Abs Auto 0.02 X10*3/uL (0.00-0.03); Imm Gran Pct Auto 0.2 % (0.0-0.4); Lymphocytes Absolute Auto 0.9 X10*3/uL (1.2-4.9); Lymphocytes Percent Auto 8.5 % (20-40); Mean Corpuscular HGB Conc 32.8 g/dl (31.0-35.0); Mean Corpuscular Hemoglobin 25.9 pg (27.0-33.0); Mean Corpuscular Volume 79.1 fL (80.0-98.0); Mean Platelet Volume 9.9 fL (9.4-12.3); Monocytes Absolute Auto 0.4 X10*3/uL (0.1-1.2); Monocytes Percent Auto 3.6 % (2-11); Neutrophils Absolute Auto 8.8 x10*3/uL (2.0-8.3); Neutrophils Percent Auto 86.7 % (45-73); Platelet Count 342 X10*3/uL (160-400); Red Blood Count 4.55 X10*6/uL (4.20-5.50); Red Cell Distribution Width 13.7 % (11.0-16.0); White Blood Count 10.2 X10*3/uL (4.8-10.8)
[2021-11-30 22:21] LABS: Ethanol < 10 mg/dL
[2021-11-30 22:23] LABS: Alanine Aminotransferase 11 U/L (0-31); Alkaline Phosphatase 103 U/L (39-117); Anion Gap 10 (12-20); Aspartate Amino Transferase 19 U/L (5-31); Bilirubin Total 0.4 mg/dL (0.0-1.0); Blood Urea Nitrogen 8 mg/dL (9-16); Calcium 8.8 mg/dL (8.4-10.2); Carbon Dioxide 26 mmol/L (22-29); Chloride 104 mmol/L (96-108); Creatinine Clr Calc Pharmacy 93.2; Estimated Glomerular Filt Rate > 60; Glucose Random 94 mg/dL (60-115); Magnesium 2.4 mg/dL (1.6-2.6); Potassium 4.2 mmol/L (3.3-5.1); Sodium 136 mmol/L (135-145); Total Protein 7.8 g/dL (6.5-8.0)
--- NOTE | 2021-11-30 22:23 | PC.NURSE ---
patient asks for some medication for anxiety and pain.
--- NOTE | 2021-11-30 23:07 | HO.SUDE ---
CARE team met with pt to offer a substance use disorder evaluation. Pt declined and did not wish to discuss further. She reported that she has a letter for methadone and that she plans to follow up with the clinic tomorrow. ED provider updated re: LAURIE.
== END 2021-11-30 23:29 | disposition home or self-care (01) ==
PROVIDERS: Physician Assistant; Emergency Provider Internal Medicine
DX: F11.188 Opioid abuse with other opioid-induced disorder (principal); F14.19 Cocaine abuse with unspecified cocaine-induced disorder; Z79.899 Other long term (current) drug therapy
CPT/HCPCS: 36415; 80053; 80307; 81001; 82077; 83735; 85025; 87086; 99283

== ENCOUNTER 2021-12-01 09:00 | Emergency (ER) | payer OTHER, SELFPAY ==
--- NOTE | 2021-12-01 | ECG_ITS ---
Test Reason : MED CLEARANCE Blood Pressure : / mmHG Vent. Rate : 073 BPM Atrial Rate : 073 BPM P-R Int : 134 ms QRS Dur : 074 ms QT Int : 416 ms P-R-T Axes : 064 084 066 degrees QTc Int : 458 ms Normal sinus rhythm with sinus arrhythmia Normal ECG No previous ECGs available Referred By: Alistair Rutherford Electronically Signed By:Gurwinder Yoon
[2021-12-01 09:02] VITALS: BP 130/90; PULSE 112; RESP 18; TEMP 36.6; O2SAT 98; BMI 22.2
[2021-12-01 09:55] LABS: Appearance Urine CLEAR; Color Urine YELLOW; Glucose Urine UA NEG (NEG); Leukocyte Esterase Urine NEG (NEG); Nitrite Urine NEG (NEG); PH 6.5 (5.0-8.0); Specific Gravity - Urine 1.025 (1.005-1.025); UACC Culture Trigger NO; Urine Blood NEG (NEG); Urine Ketones 15 MG/DL (NEG); Urine Protein 1+ MG/DL (NEG-TRACE)
[2021-12-01 09:57] LABS: UPreg QC Valid YES; Urine Pregnancy NEGATIVE (NEGATIVE)
[2021-12-01 10:06] LABS: Bacteria Urine 1+ /LPF; Mucus Urine 1+ /LPF; RBC Urine 0-2 /HPF (0); Squamous Epithelial Cell Urine 2+ /LPF
[2021-12-01 10:06] LABS: MANUAL DIFF FLAG NO
[2021-12-01 10:07] LABS: UACC CULT YES
[2021-12-01 10:07] LABS: Basophils Percent Auto 0.4 % (0-2); Eosinophils Absolute Auto 0.1 X10*3/uL (0.0-0.4); Eosinophils Percent Auto 1.1 % (0-4); Hematocrit 39.3 % (37.0-47.0); Hemoglobin 12.7 g/dl (12.0-16.0); Imm Gran Abs Auto 0.03 X10*3/uL (0.00-0.03); Imm Gran Pct Auto 0.4 % (0.0-0.4); Lymphocytes Percent Auto 12.6 % (20-40); Mean Corpuscular HGB Conc 32.3 g/dl (31.0-35.0); Mean Corpuscular Hemoglobin 25.9 pg (27.0-33.0); Mean Platelet Volume 10.1 fL (9.4-12.3); Monocytes Absolute Auto 0.5 X10*3/uL (0.1-1.2); Monocytes Percent Auto 5.5 % (2-11); Neutrophils Absolute Auto 6.6 x10*3/uL (2.0-8.3); Platelet Count 380 X10*3/uL (160-400); Red Blood Count 4.91 X10*6/uL (4.20-5.50); Red Cell Distribution Width 13.8 % (11.0-16.0); White Blood Count 8.2 X10*3/uL (4.8-10.8)
[2021-12-01 10:13] LABS: Amphetamine Screen Urine Not Detected (Not Detect); Barbiturates, Urine Not Detected (Not Detect); Benzodiazepines Screen Urine Not Detected (Not Detect); Cannabinoid Screen Urine Not Detected (Not Detect); Cocaine Screen Urine POSITIVE (Not Detect); Fentanyl, urine POSITIVE (Not Detect); Opiate Screen Urine POSITIVE (Not Detect); Phencyclidine Screen Urine Not Detected (Not Detect)
[2021-12-01 10:23] LABS: Ethanol < 10 mg/dL
[2021-12-01 10:25] LABS: Alanine Aminotransferase 12 U/L (0-31); Albumin Level 4.5 g/dL (3.5-5.0); Alkaline Phosphatase 109 U/L (39-117); Anion Gap 13 (12-20); Aspartate Amino Transferase 23 U/L (5-31); Bilirubin Total 0.4 mg/dL (0.0-1.0); Blood Urea Nitrogen 8 mg/dL (9-16); Calcium 9.8 mg/dL (8.4-10.2); Carbon Dioxide 26 mmol/L (22-29); Chloride 103 mmol/L (96-108); Creatinine Clr Calc Pharmacy 87.6; Estimated Glomerular Filt Rate > 60; Glucose Random 95 mg/dL (60-115); Potassium 4.2 mmol/L (3.3-5.1); Sodium 138 mmol/L (135-145); Total Protein 8.8 g/dL (6.5-8.0)
[2021-12-01] MEDS: hydrOXYzine HCL 50 MG TABLET PO (10:34)
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
[2021-12-01 11:36] LABS: IDNOW Serial# 55D5AD1C
[2021-12-01 11:37] LABS: COVID-19 Test Negative (Negative)
[2021-12-01] MEDS: LORazepam 1 MG TABLET 2 MG PO ×2 (11:57→20:28)
[2021-12-01] MEDS: metroNIDAZOLE 500 MG TABLET PO (16:23)
[2021-12-01] MEDS: Azithromycin 500 MG TABLET 2000 MG PO (16:23)
[2021-12-01] MEDS: Emtricitabin/Tenofovir 200/300 TABLET 1 TAB PO (16:30)
[2021-12-01] MEDS: Gentamicin Sulfate 80 MG/2 ML VIAL 240 MG IM (16:30)
[2021-12-01 17:24] LABS: Anion Gap 12 (12-20); Blood Urea Nitrogen 7 mg/dL (9-16); Calcium 9.4 mg/dL (8.4-10.2); Carbon Dioxide 26 mmol/L (22-29); Chloride 103 mmol/L (96-108); Creatinine Clr Calc Pharmacy 89.7; Estimated Glomerular Filt Rate > 60; Glucose Random 102 mg/dL (60-115); Potassium 3.7 mmol/L (3.3-5.1); Sodium 137 mmol/L (135-145)
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
[2021-12-01] MEDS: Diphth,Pertus(ACell),Tet Adult 0.5 ML SYRINGE IM (20:28)
[2021-12-01] MEDS: Raltegravir Potassium 400 MG TABLET PO (20:46)
--- NOTE | 2021-12-01 20:48 | PC.NURSE ---
pt states the last time she used was yesterday 11/30/21 unknown time. states 2 bundles.
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
[2021-12-02] MEDS: LORazepam 1 MG TABLET 2 MG PO ×2 (03:34→12:21)
--- NOTE | 2021-12-02 03:38 | PC.NURSE ---
pt feeling like she is withdrawing from drugs, medicated with ativan po and warm blankets.
--- NOTE | 2021-12-02 04:18 | PC.NURSE ---
pt awake wanting to leave if she doesnt get a methadone dose and that the ativan is not working for her. pt uses herion and cocaine dialy 2 bundles. provider made aware and medication ordered.
[2021-12-02] MEDS: methADONE HCl 10 MG TABLET PO (04:31)
[2021-12-02 04:36] VITALS: RESP 18
[2021-12-02 04:51] LABS: HIV AB/AG Nonreactive (Nonreactive); HIV Num 1 0.09 S/CO (0.00-0.99)
[2021-12-02 04:56] LABS: HBS Num1 0.58 mIU/mL (0-7.99); HBc Num1 0.16 S/CO (0.00-0.79); Hepatitis B Core Antibody Nonreactive (Nonreactive); ~HepC Num1 14.47 S/CO (0.00-0.79); ~Hepatitis B Surface Antibody NONREACTIVE (Nonreactive); ~Hepatitis C Antibody Reactive (Nonreactive)
[2021-12-02 04:59] LABS: HBsAGNum1 0.17 S/CO (0.00-0.99); Hepatitis B Surface Antigen Negative (Negative)
[2021-12-02 06:13] VITALS: RESP 16
--- NOTE | 2021-12-02 07:31 | PC.NURSE ---
patient appears to remain asleep respirations are even and unlabored patient appear in no distress
[2021-12-02] MEDS: Ondansetron ODT 4 MG TAB.RAPDIS TRANSLINGU (12:01)
[2021-12-02] MEDS: diphenhydrAMINE HCL 25 MG TABLET 50 MG PO (12:21)
[2021-12-02] MEDS: Emtricitabin/Tenofovir 200/300 TABLET 1 TAB PO (12:56)
[2021-12-02] MEDS: Raltegravir Potassium 400 MG TABLET PO (12:56)
[2021-12-02 13:02] VITALS: PULSE 85
[2021-12-02 15:28] LABS: BV Int Neg Control Negative (Negative); BV Int Pos Control Positive (Positive)
--- NOTE | 2021-12-02 15:47 | MHC.RECOVRN ---
Pt had been an ATS bed search. Account Resolution Analyst secured bed at [facility] for 1500. CARE Team ordered Lyft. While waiting for Lyft, pt decided boyfriend would pick her up and transport. Lyft was canceled. Pt confirmed she would present to by 1500.
[2021-12-03 03:41] LABS: Syphilis Screen Nonreactive (Nonreactive)
== END 2021-12-02 14:21 | disposition other institution (70) ==
PROVIDERS: Physician Assistant; Emergency Provider Emergency Medicine
DX: F19.10 Other psychoactive substance abuse, uncomplicated (principal); F32.A Depression, unspecified; Z20.822 Contact with and (suspected) exposure to COVID-19; T76.21XA Adult sexual abuse, suspected, initial encounter; Z79.899 Other long term (current) drug therapy
CPT/HCPCS: 36415; 80048; 80053; 80307; 81001; 81025; 82077; 85025; 86704; 86706; 86780; 86803; 87340; 87389; 87480; 87510; 87635; 87660; 90471; 90715; 93005; 96372; 99285; J1580; Q0163

== ENCOUNTER 2021-12-20 23:46 | Emergency (ER) | payer OTHER, SELFPAY ==
[2021-12-20 23:54] VITALS: BP 120/66; PULSE 92; O2SAT 99
[2021-12-20 23:59] VITALS: BP 107/59; PULSE 74; RESP 18; BMI 22.0
[2021-12-21 00:58] LABS: COVID-19 Test Negative (Negative)
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
[2021-12-21 01:01] LABS: Ethanol 224 mg/dL
[2021-12-21 01:01] LABS: Appearance Urine CLEAR; Color Urine YELLOW; Glucose Urine UA NEG (NEG); Leukocyte Esterase Urine NEG (NEG); Nitrite Urine NEG (NEG); PH 5.5 (5.0-8.0); Urine Blood NEG (NEG); Urine Ketones NEG (NEG); Urine Protein NEG (NEG-TRACE)
[2021-12-21 01:02] LABS: UPreg QC Valid YES; Urine Pregnancy NEGATIVE (NEGATIVE)
[2021-12-21 01:11] LABS: Amphetamine Screen Urine Not Detected (Not Detect); Barbiturates, Urine Not Detected (Not Detect); Benzodiazepines Screen Urine Not Detected (Not Detect); Cannabinoid Screen Urine POSITIVE (Not Detect); Cocaine Screen Urine POSITIVE (Not Detect); Fentanyl, urine POSITIVE (Not Detect); Opiate Screen Urine POSITIVE (Not Detect); Phencyclidine Screen Urine Not Detected (Not Detect)
[2021-12-21 02:33] VITALS: RESP 16
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
--- NOTE | 2021-12-21 09:02 | MHC.CARE ---
Pt is a 31 y/o female who is presently involved in a relationship.? Yesterday, she was found outside a bar under the influence.? EMS was called and she was transported to this facility.? Pt is known to the CARE Team from prior ED Visits and Recovery team interventions.? Pt has been medically cleared and is being assessed by the CARE Team to determine appropriate treatment recommendations.? Pt is alert and oriented x4 and is screened for Risk in her bed in the main ED.? She is slender, disheveled, and there are notable scabs on her face.? Her eye contact and speech are unremarkable; her voice is, at times, soft.? She reports good sleep and appetite.? When asked about her mood, she shrugs her shoulders and says ?Ok?.? Her affect is flat.? She denies AVH, SI, HI, , and self-harm urges.? She does not appear delusional or experiencing symptoms of psychosis.? Insight, judgement, memory, concentration and impulse control are unremarkable. Pt does not appear to be a risk of harm to self or others. SUDE was completed. Pt reports a hx of heroin and alcohol use.? She does not disclose how long she has been using.? She denies any hx of mental illness, treatment for mental illness, dx, or inpatient stays.? Pt does not have any community supports in place; she has at one time, explored MAT with suboxone but stated that it gives her bad migraines.? Methadone was suggested; pt stated that she has explored methadone previously but appeared reluctant to speak further on the topic. HIV, Hep C, and TB risk factors were discussed.? Pt is presently an IV heroin user and stated she is aware of the risks involved in IV drug use. Overdose reduction education was provided.? Pt stated that she has a full dose of Narcan in her belongings.? Pt appeared mildly interested in Recovery supports.? Literature was provided for such supports and explained.
[2021-12-21] MEDS: Ondansetron ODT 4 MG TAB.RAPDIS TRANSLINGU (11:00)
[2021-12-21] MEDS: LORazepam 1 MG TABLET 2 MG PO (11:00)
--- NOTE | 2021-12-21 11:24 | MHC.RECOVSUP ---
Addendum entered by Frank Rahman [facility] 12/21/21 14:47: [facility] Staff informed this conventional underwriter that patient did not show up. Patient declined Lyft as her friend came to bring her to treatment. Original Note: Recovery Support note: Patient accepted for to [facility]. Patient to be transported via Lyft.
[2021-12-21 11:30] VITALS: BP 125/75; PULSE 79; RESP 19; O2SAT 98
[2021-12-21] MEDS: Naloxone HCl Nasal TAKE HOME 4 MG SPRAY NOSTRILALT (11:30)
== END 2021-12-21 11:32 | disposition other institution (70) ==
PROVIDERS: Emergency Provider Student in an Organized Health Care Education/Training Program
DX: F10.129 Alcohol abuse with intoxication, unspecified (principal); Y90.7 Blood alcohol level of 200-239 mg/100 ml; F19.90 Other psychoactive substance use, unspecified, uncomplicated; Z20.822 Contact with and (suspected) exposure to COVID-19
CPT/HCPCS: 36415; 80307; 81003; 81025; 82077; 87635; 99284

== ENCOUNTER 2022-01-30 03:28 | Emergency (ER) | payer OTHER, SELFPAY ==
[2022-01-30 03:37] VITALS: BP 137/88; PULSE 113; RESP 20; TEMP 37.1; O2SAT 98; BMI 19.1
--- NOTE | 2022-01-30 03:56 | ED.GENADULT ---
HPI - General Adult General Chief complaint: ETOH/Substance Use Stated complaint: ?allergic reaction Time Seen by Provider: 01/30/22 03:53 Source: patient Mode of arrival: ambulatory Limitations: no limitations History of Present Illness HPI narrative: patient With history of substance abuses cocaine and heroin IV just last use was yesterday patient is homeless complaining of multiple complaints headache body aches abdominal pain and vaginal bleeding patient not sure about . No vomiting Related Data Home Medications Medication Instructions Recorded Confirmed clonidine HCl 0.1 mg tablet 1 tab PO BEDTIME PRN anxiety 12/01/21 12/01/21 docusate sodium 100 mg capsule 1 cap PO BID PRN constipation 12/01/21 12/01/21 hydroxyzine pamoate 50 mg capsule 1 cap PO BID PRN anxiety 12/01/21 12/01/21 nicotine (polacrilex) 2 mg gum 1 ea PO Q2H PRN Nicotine Cravings 12/01/21 12/01/21 quetiapine 50 mg tablet 1 tab PO BID 12/01/21 12/01/21 risperidone 1 mg tablet 1 tab PO BID 12/01/21 12/01/21 Previous Rx's Medication Instructions Recorded doxycycline hyclate 100 mg capsule 100 mg PO BID 6 days #12 caps 12/01/21 emtricitabine 200 mg-tenofovir 1 tab PO DAILY 27 days #27 tabs 12/01/21 disoproxil fumarate 300 mg tablet (Truvada) raltegravir 400 mg tablet 400 mg PO BID 27 days #54 tabs 12/01/21 Allergies Allergy/AdvReac Type Severity Reaction Status Date / Time Penicillins [PENICILLINS] Allergy Severe ANAPHYLAXIS Unverified 05/09/20 17:17 soap [SOAP] Allergy Intermediate ITCHING Unverified 05/09/20 17:17 acetaminophen [From TYLENOL] Allergy Unknown ANAPHYLAXIS Unverified 05/09/20 17:17 aspirin [ASA] Allergy Unknown ANAPHYLAXIS Unverified 05/09/20 17:17 latex [LATEX] Allergy Unknown ANAPHYLAXIS Unverified 05/09/20 17:17 Latex Allergy Unknown anaphylaxis Unverified 02/08/20 00:00 tramadol [TRAMADOL] Allergy Unknown HIVES Unverified 05/09/20 17:17 / cats Allergy Unknown moderately Uncoded 01/05/13 00:00 severe Shellfish Allergy Unknown Unknown Uncoded 11/30/21 21:17 tramadol Allergy Unknown rash Uncoded 01/05/13 00:00 Review of Systems Review of Systems: Yes all other systems are reviewed and are negative [facility] Past Medical History Medical History Substance abuse Social History Social History Advance Directives: No Advance Directives Information Provided: No Physical Exam ED Vital Signs: Vital Signs - 24 hr 01/30/22 03:37 Temperature 98.8 F Pulse Rate 113 H Respiratory Rate 20 Blood Pressure 137/88 Pulse Oximetry 98 Oxygen Delivery Method Room Air BMI result Body Mass Index 19.1 Appearance: Alert. Oriented X3. No acute distress. Eyes: PERRLA, No Nystagmus ENT: Pharynx normal. Oral Mucosa moist Neck: Normal inspection. Neck supple. CVS: Normal heart rate and rhythm. Pulses normal. Respiratory: No respiratory distress. Equal air entry bilateral, no wheezing/rales/rhonchi Abdomen: Soft and nontender. Bowel sounds are present, no mass palpable, no CVA tenderness Skin: Skin warm and dry. Normal skin color. Normal skin turgor. Extremities: No lower extremity edema. No calf tenderness IVDA track mcdonald Neuro: Oriented X 3. No motor deficit. No sensory deficit.No cerebellar signs , cranial nerves II-XII intact Medical Decision Making MDM Narrative Medical decision making narrative: Patient with substance abuse heroin and cocaine been here multiple times does not want detox information for detox places were given to the patient and discharge the patient Lab Data Lab results reviewed: Yes I reviewed the patient's lab results. Labs: Lab Results 01/30/22 01/30/22 01/30/22 Range/Units 04:06 04:06 04:06 Urine Color YELLOW Urine Appearance HAZY Urine pH 5.5 (5.0-8.0) Ur Specific [place] 1.025 (1.005-1.025) Urine Protein NEG (NEG-TRACE) MG/DL Urine Glucose (UA) NEG (NEG) MG/DL Urine Ketones NEG (NEG) MG/DL Urine Blood NEG (NEG) Urine Nitrite NEG (NEG) Ur Leukocyte Esterase NEG (NEG) Urine Test NEGATIVE (NEGATIVE) Urine Opiates Screen (Not Detect) Urine Fentanyl Screen (Not Detect) Ur Barbiturates Screen (Not Detect) Ur Phencyclidine Scrn (Not Detect) Ur Amphetamines Screen (Not Detect) U Benzodiazepines Scrn (Not Detect) Urine Cocaine Screen (Not Detect) U Marijuana (THC) Screen (Not Detect) COVID-19 (ANGIE) Negative (Negative) COVID-19 Clin Com See Note 01/30/22 Range/Units 04:06 Urine Color Urine Appearance Urine pH (5.0-8.0) Ur Specific [place] (1.005-1.025) Urine Protein (NEG-TRACE) MG/DL Urine Glucose (UA) (NEG) MG/DL Urine Ketones (NEG) MG/DL Urine Blood (NEG) Urine Nitrite (NEG) Ur Leukocyte Esterase (NEG) Urine Test (NEGATIVE) Urine Opiates Screen POSITIVE H (Not Detect) Urine Fentanyl Screen POSITIVE H (Not Detect) Ur Barbiturates Screen Not Detected (Not Detect) Ur Phencyclidine Scrn Not Detected (Not Detect) Ur Amphetamines Screen Not Detected (Not Detect) U Benzodiazepines Scrn Not Detected (Not Detect) Urine Cocaine Screen POSITIVE H (Not Detect) U Marijuana (THC) Screen Not Detected (Not Detect) COVID-19 (ANGIE) (Negative) COVID-19 Clin Com Discharge Plan Discharge Clinical Impression: Polysubstance abuse Patient Disposition: Home, Self-Care Instructions: Polysubstance Abuse (ED) Additional Instructions: Follow up with detox as advised Prescriptions: No Action clonidine HCl 0.1 mg tablet 1 tab PO BEDTIME PRN (Reason: anxiety) nicotine (polacrilex) 2 mg gum 1 ea PO Q2H PRN (Reason: Nicotine Cravings) hydroxyzine pamoate 50 mg capsule 1 cap PO BID PRN (Reason: anxiety) docusate sodium 100 mg capsule 1 cap PO BID PRN (Reason: constipation) risperidone 1 mg tablet 1 tab PO BID quetiapine 50 mg tablet 1 tab PO BID doxycycline hyclate 100 mg capsule 100 mg PO BID 6 Days Qty: 12 0RF emtricitabine-tenofovir (TDF) [Truvada] 200-300 mg tablet 1 tab PO DAILY 27 Days Qty: 27 0RF raltegravir 400 mg tablet 400 mg PO BID 27 Days Qty: 54 0RF
[2022-01-30 04:14] LABS: Appearance Urine HAZY; Color Urine YELLOW; Glucose Urine UA NEG (NEG); Leukocyte Esterase Urine NEG (NEG); Nitrite Urine NEG (NEG); PH 5.5 (5.0-8.0); Specific Gravity - Urine 1.025 (1.005-1.025); Urine Blood NEG (NEG); Urine Ketones NEG (NEG); Urine Protein NEG (NEG-TRACE)
[2022-01-30 04:20] LABS: UPreg QC Valid YES; Urine Pregnancy NEGATIVE (NEGATIVE)
[2022-01-30 04:29] LABS: Amphetamine Screen Urine Not Detected (Not Detect); Barbiturates, Urine Not Detected (Not Detect); Benzodiazepines Screen Urine Not Detected (Not Detect); Cannabinoid Screen Urine Not Detected (Not Detect); Cocaine Screen Urine POSITIVE (Not Detect); Fentanyl, urine POSITIVE (Not Detect); Opiate Screen Urine POSITIVE (Not Detect); Phencyclidine Screen Urine Not Detected (Not Detect)
[2022-01-30 04:32] LABS: COVID-19 Test Negative (Negative)
[2022-01-30 06:12] VITALS: BP 135/86; PULSE 98; RESP 18; O2SAT 99
[2022-01-30 06:26] VITALS: BP 94/64; PULSE 114; RESP 14; O2SAT 97
== END 2022-01-30 06:35 | disposition home or self-care (01) ==
PROVIDERS: Emergency Provider Internal Medicine
DX: F11.10 Opioid abuse, uncomplicated (principal); F14.10 Cocaine abuse, uncomplicated; Z20.822 Contact with and (suspected) exposure to COVID-19
CPT/HCPCS: 80307; 81003; 81025; 87635; 99284

== ENCOUNTER 2022-03-10 01:09 | Emergency (ER) | payer OTHER, SELFPAY ==
[2022-03-10 01:19] VITALS: BP 126/86; PULSE 103; RESP 16; TEMP 36.8; O2SAT 96; BMI 17.3
--- NOTE | 2022-03-10 01:37 | ED_ITS ---
HPI - General Adult General Chief complaint: ETOH/Substance Use Stated complaint: detox Time Seen by Provider: 03/10/22 01:36 Source: patient and EMS Mode of arrival: EMS Limitations: no limitations History of Present Illness HPI narrative: 31 years old female came in for seeking detox. Patient with history of IV heroin abuser last use was last night, came in by ambulance seeking detox, patient did not require any Narcan by EMS, patient emergency department has stable vital signs and awake, alert, oriented, no SI, no HI, no hallucinations. Patient do not want to wait for care team evaluation. Related Data Home Medications Medication Instructions Recorded Confirmed clonidine HCl 0.1 mg tablet 1 tab PO BEDTIME PRN anxiety 12/01/21 12/01/21 docusate sodium 100 mg capsule 1 cap PO BID PRN constipation 12/01/21 12/01/21 hydroxyzine pamoate 50 mg capsule 1 cap PO BID PRN anxiety 12/01/21 12/01/21 nicotine (polacrilex) 2 mg gum 1 ea PO Q2H PRN Nicotine Cravings 12/01/21 12/01/21 quetiapine 50 mg tablet 1 tab PO BID 12/01/21 12/01/21 risperidone 1 mg tablet 1 tab PO BID 12/01/21 12/01/21 Previous Rx's Medication Instructions Recorded doxycycline hyclate 100 mg capsule 100 mg PO BID 6 days #12 caps 12/01/21 emtricitabine 200 mg-tenofovir 1 tab PO DAILY 27 days #27 tabs 12/01/21 disoproxil fumarate 300 mg tablet (Truvada) raltegravir 400 mg tablet 400 mg PO BID 27 days #54 tabs 12/01/21 Allergies Allergy/AdvReac Type Severity Reaction Status Date / Time Penicillins [PENICILLINS] Allergy Severe ANAPHYLAXIS Unverified 05/09/20 17:17 soap [SOAP] Allergy Intermediate ITCHING Unverified 05/09/20 17:17 acetaminophen [From TYLENOL] Allergy Unknown ANAPHYLAXIS Unverified 05/09/20 17:17 aspirin [ASA] Allergy Unknown ANAPHYLAXIS Unverified 05/09/20 17:17 latex [LATEX] Allergy Unknown ANAPHYLAXIS Unverified 05/09/20 17:17 Latex Allergy Unknown anaphylaxis Unverified 02/08/20 00:00 tramadol [TRAMADOL] Allergy Unknown HIVES Unverified 05/09/20 17:17 / cats Allergy Unknown moderately Uncoded 01/05/13 00:00 severe Shellfish Allergy Unknown Unknown Uncoded 11/30/21 21:17 tramadol Allergy Unknown rash Uncoded 01/05/13 00:00 Review of Systems Review of Systems: All other systems are reviewed and are negative Constitutional: Reports as per HPI and Reports no additional constitutional complaints Eyes: Reports as per HPI and Reports no additional eye complaints Reports system reviewed and no additional complaints, except as documented Cardiovascular: Reports as per HPI and Reports no additional cardiovascular complaints Respiratory: Reports as per HPI and Reports no additional respiratory complaints Gastrointestinal: Reports as per HPI and Reports no additional gastrointestinal complaints Genitourinary: Reports no additional female genitourinary complaints Musculoskeletal: Reports no additional musculoskeletal complaints Skin/Breast: Reports system reviewed and no additional complaints, except as docu Psychiatric: Reports no additional psychiatric complaints Endocrine: Reports no additional endocrine complaints Hematologic/Lymphatic: Reports no additional hematologic/lymphatic complaints Allergic/Immunologic: Reports no additional allergic/immunologic complaints Reports system reviewed and no additional complaints, except as documented and Reports Abnormal speech present [facility] Past Medical History Medical History Substance abuse Physical Exam ED Vital Signs: Vital Signs - 24 hr 03/10/22 01:19 Temperature 98.2 F Pulse Rate 103 H Respiratory Rate 16 Blood Pressure 126/86 Pulse Oximetry 96 Oxygen Delivery Method Room Air BMI result Body Mass Index 17.3 vital signs have been reviewed as appeared to be correct. Blood pressure normal. Heart rate elevated. Respiration rate normal. Temperature normal. Oxygen saturation normal. Appearance: Alert. Oriented X3. No acute distress. Head: Normal external exam. Normocephalic. Atraumatic. No Berg signs noted. No raccoon eyes noted Eyes: PERRLA. EOMI. Conjunctiva and sclera normal. Eyelids normal. ENT: TM's Normal. Pharynx normal. Uvula midline. Moist mucous membranes. No trismus noted. No drooling noted. No muffled voice noted. Neck: Normal inspection. Neck supple. FROM. No adenopathy. Thyroid Normal. No meningeal signs. No neck mass noted. CVS: Normal heart rate and rhythm. Heart sound normal. No murmurs noted. Pulses normal throughout. Respiratory: No respiratory distress. Painless inspiration. Breath sounds normal. No wheezes/rales/rhonchi noted. Chest nontender. No accessory muscle usage noted or decreased air movement noted. Abdomen: Soft and nontender. Bowel sounds normal in all 4 quadrants. No distention noted. No organomegaly noted. No visible injury noted. Back: No CVA tenderness. Full range of motion noted. Skin: Skin warm and dry. Normal skin color. Normal skin turgor. No rashes/lesions/lacerations noted. Extremities: No lower extremity edema. Extremities exhibit normal range of motion. Extremities nontender. Neuro: Oriented X 3. Cranial nerve exam: II-XII are grossly intact No motor deficit. No sensory deficit. Reflexes normal. Course Course Course Narrative: 31-year-old female with history of IV heroin abuser came in seeking detox by EMS, patient emergency department is awake, alert, oriented, no SI, no HI, no ulceration, patient now 1 a walkout patient will call detox on her own in the morning patient feels safe to be discharged she is going to spend the night at her family house. Discharge Plan Discharge Clinical Impression: Substance abuse Patient Disposition: Home, Self-Care Instructions: Polysubstance Abuse (ED) Prescriptions: No Action clonidine HCl 0.1 mg tablet 1 tab PO BEDTIME PRN (Reason: anxiety) nicotine (polacrilex) 2 mg gum 1 ea PO Q2H PRN (Reason: Nicotine Cravings) hydroxyzine pamoate 50 mg capsule 1 cap PO BID PRN (Reason: anxiety) docusate sodium 100 mg capsule 1 cap PO BID PRN (Reason: constipation) risperidone 1 mg tablet 1 tab PO BID quetiapine 50 mg tablet 1 tab PO BID doxycycline hyclate 100 mg capsule 100 mg PO BID 6 Days Qty: 12 0RF emtricitabine-tenofovir (TDF) [Truvada] 200-300 mg tablet 1 tab PO DAILY 27 Days Qty: 27 0RF raltegravir 400 mg tablet 400 mg PO BID 27 Days Qty: 54 0RF
--- NOTE | 2022-03-10 01:42 | PC.NURSE ---
pt a&o , no sob or chest pain. pt expressing she wanted detox but then change her mind and wanted to leave. Provider into assess pt and discuss options. pt still wanting to be discharge. Discharge instructions given. Pt verbalized understanding.
== END 2022-03-10 01:53 | disposition home or self-care (01) ==
LOC: HO.ED 01:46
PROVIDERS: Emergency Provider Emergency Medicine
DX: F19.10 Other psychoactive substance abuse, uncomplicated (principal); Z79.899 Other long term (current) drug therapy
CPT/HCPCS: 99282

== ENCOUNTER 2022-05-08 11:58 | Emergency (ER) | payer OTHER, SELFPAY ==
[2022-05-08 12:02] VITALS: BP 134/89; PULSE 56; O2SAT 98
[2022-05-08 12:11] VITALS: BP 97/61; PULSE 55; RESP 18; TEMP 36.6; O2SAT 97; BMI 16.6
[2022-05-08] MEDS: Buprenorphine/Naloxone 8/2 mg FILM 1 FILM SUBLINGUAL ×2 (12:31→15:38)
--- NOTE | 2022-05-08 12:33 | ED.PSYCH ---
HPI - Psych General Chief Complaint: ETOH/Substance Use Stated Complaint: HEROIN WITHDRAWAL Time Seen by Provider: 05/08/22 12:09 Source: patient Mode of arrival: ambulatory Limitations: no limitations History of Present Illness HPI Narrative: Patient with history of IVDA heroin use last use was 4 days ago uses 2 bundles a day since then patient has not used it and been feeling sick nausea vomiting unable to hold anything down wants to take Suboxone patient refusing to detox Related Data Home Medications Medication Instructions Recorded Confirmed clonidine HCl 0.1 mg tablet 1 tab PO BEDTIME PRN anxiety 12/01/21 12/01/21 docusate sodium 100 mg capsule 1 cap PO BID PRN constipation 12/01/21 12/01/21 hydroxyzine pamoate 50 mg capsule 1 cap PO BID PRN anxiety 12/01/21 12/01/21 nicotine (polacrilex) 2 mg gum 1 ea PO Q2H PRN Nicotine Cravings 12/01/21 12/01/21 quetiapine 50 mg tablet 1 tab PO BID 12/01/21 12/01/21 risperidone 1 mg tablet 1 tab PO BID 12/01/21 12/01/21 Previous Rx's Medication Instructions Recorded doxycycline hyclate 100 mg capsule 100 mg PO BID 6 days #12 caps 12/01/21 emtricitabine 200 mg-tenofovir 1 tab PO DAILY 27 days #27 tabs 12/01/21 disoproxil fumarate 300 mg tablet (Truvada) raltegravir 400 mg tablet 400 mg PO BID 27 days #54 tabs 12/01/21 buprenorphine 8 mg-naloxone 2 mg 1 film sublingual BID #8 ea 05/08/22 sublingual film (Suboxone) ondansetron 4 mg disintegrating 4 mg PO Q6-8H PRN nausea and 05/08/22 tablet vomiting #15 tabs Allergies Allergy/AdvReac Type Severity Reaction Status Date / Time Penicillins [PENICILLINS] Allergy Severe ANAPHYLAXIS Unverified 05/09/20 17:17 soap [SOAP] Allergy Intermediate ITCHING Unverified 05/09/20 17:17 acetaminophen [From TYLENOL] Allergy Unknown ANAPHYLAXIS Unverified 05/09/20 17:17 aspirin [ASA] Allergy Unknown ANAPHYLAXIS Unverified 05/09/20 17:17 latex [LATEX] Allergy Unknown ANAPHYLAXIS Unverified 05/09/20 17:17 Latex Allergy Unknown anaphylaxis Unverified 02/08/20 00:00 tramadol [TRAMADOL] Allergy Unknown HIVES Unverified 05/09/20 17:17 / cats Allergy Unknown moderately Uncoded 01/05/13 00:00 severe Shellfish Allergy Unknown Unknown Uncoded 11/30/21 21:17 tramadol Allergy Unknown rash Uncoded 01/05/13 00:00 Review of Systems Review of Systems: Yes all other systems are reviewed and are negative PMF Past Medical History Medical History Substance abuse Social History Social History Substance Use Type: Heroin Physical Exam Vital Signs: Vital Signs: Last Vital Signs Temp 97.8 F 05/08/22 16:00 Pulse 74 05/08/22 16:00 Resp 18 05/08/22 16:00 BP 125/78 05/08/22 16:00 Pulse Ox 98 05/08/22 16:00 O2 Del Method 05/08/22 16:00 BMI result Body Mass Index 16.6 Appearance: Alert. Oriented X3. No acute distress. Eyes: PERRLA, No Nystagmus ENT: Pharynx normal. Oral Mucosa moist Neck: Normal inspection. Neck supple. CVS: Normal heart rate and rhythm. Pulses normal. Respiratory: No respiratory distress. Equal air entry bilateral, no wheezing/rales/rhonchi Abdomen: Soft and nontender. Bowel sounds are present, no mass palpable, Skin: Skin warm and dry. Normal skin color. Normal skin turgor. Extremities: No lower extremity edema. No calf tenderness IVDA track mcdonald ++ Neuro: Oriented X 3. MDM - Psych MDM Narrative Medical decision making narrative: Patient feeling better now after taking Suboxone refused to get IV fluids taking p.o. fluids discharge patient home advised to follow up with detox. assistant men's soccer coach spoke to the patient Lab Data Labs: Lab Results 05/08/22 Range/Units 12:59 COVID-19 (ANGIE) Negative (Negative) COVID-19 Clin Com See Note Discharge Plan Discharge Clinical Impression: Opiate withdrawal Patient Disposition: Home, Self-Care Instructions: Opioid Withdrawal (ED) Additional Instructions: Take Suboxone as prescribed and follow up with detox Nausea medication as prescribed Follow-up with detox Prescriptions: New buprenorphine-naloxone [Suboxone] 8-2 mg film 1 film sublingual BID Qty: 8 0RF ondansetron 4 mg tablet,disintegrating 4 mg PO Q6-8H PRN (Reason: nausea and vomiting) Qty: 15 0RF No Action clonidine HCl 0.1 mg tablet 1 tab PO BEDTIME PRN (Reason: anxiety) nicotine (polacrilex) 2 mg gum 1 ea PO Q2H PRN (Reason: Nicotine Cravings) hydroxyzine pamoate 50 mg capsule 1 cap PO BID PRN (Reason: anxiety) docusate sodium 100 mg capsule 1 cap PO BID PRN (Reason: constipation) risperidone 1 mg tablet 1 tab PO BID quetiapine 50 mg tablet 1 tab PO BID doxycycline hyclate 100 mg capsule 100 mg PO BID 6 Days Qty: 12 0RF emtricitabine-tenofovir (TDF) [Truvada] 200-300 mg tablet 1 tab PO DAILY 27 Days Qty: 27 0RF raltegravir 400 mg tablet 400 mg PO BID 27 Days Qty: 54 0RF Referrals: Physician,Unknown J [Primary Care Provider] -
--- NOTE | 2022-05-08 12:34 | MHC.RECOVSUP ---
Recovery Support note: Patient is a 31 year old Martiniquais speaking female who presented to [facility] ED reporting symptoms of opiate withdrawal. When this speech writer approached patient, patient was visibly uncomfortable and vomiting. Patient stated I need Suboxone. Patient reports she last used 4 days ago. Patient educated on risk of precipitated withdrawal and continues to report 4 days as last use. Patient reports she has taken Suboxone before but does not know the dosage. This speech writer attempted to discuss treatment options with patient however patient declined, stating she was too sick to talk. Discussed case with ED physician. Plan for patient to receive Suboxone. This speech writer will follow up with resources.
--- NOTE | 2022-05-08 12:36 | PC.NURSE ---
PT WITH HX OF HEROIN USE. REPORTS THAT SHE USES 2 BUNDLES OF HEROIN A DAY. STATES THAT SHE LAST USED 3 DAYS AGO. PT STATES THAT SHE IS NOT LOOKING FOR DETOX SHE JUST WANT TO FEEL BETTER OFFERED ZOFRAN AND SUBOXONE. PT REFUSED THE ZOFRAN ATTEMPTED TO ASSESS PATIENT FURTHER AND PATIENT REFUSED. STOP ASKING ME QUESTIONS AND GET AWAY FROM ME
[2022-05-08 13:18] LABS: COVID-19 Test Negative (Negative)
--- NOTE | 2022-05-08 14:54 | MHC.RECOVSUP ---
Patient reports improvement in withdrawal symptoms and appears to be resting comfortably however patient still appears tremulous from time to time. Patient is requesting additional Suboxone. Patient received education on Suboxone and is interested in continuing. Patient familiar with [facility]. Appointment made for Friday 05/11 at 1430. Patient aware and provided with appointment card. Prescription will be sent to [facility] to bridge patient until appointment. Patient reports no questions with plan. Discussed with ED physician. Plan for patient to receive additional 8mg of Suboxone and to discharge and follow-up with [facility]. Discussed case with Bobbi Bonilla NP.
[2022-05-08 15:32] VITALS: PULSE 50
[2022-05-08 15:36] VITALS: BP 138/80; PULSE 50; RESP 16; O2SAT 100
--- NOTE | 2022-05-08 15:44 | PC.NURSE ---
pt drowsy, orientedx3, vss - hypotensive, reports pain, but unable to quantify, medicated per provider order, COWS=5, CIWA=2.
[2022-05-08 16:00] VITALS: BP 125/78; PULSE 74; RESP 18; TEMP 36.6; O2SAT 98
== END 2022-05-08 19:11 | disposition home or self-care (01) ==
PROVIDERS: Emergency Provider Internal Medicine
DX: F11.13 Opioid abuse with withdrawal (principal); Z79.899 Other long term (current) drug therapy; Z20.822 Contact with and (suspected) exposure to COVID-19
CPT/HCPCS: 87635; 99284

== ENCOUNTER 2022-06-08 12:15 | Emergency (ER) | payer OTHER, SELFPAY ==
[2022-06-08 12:38] VITALS: BP 105/67; PULSE 65; RESP 16; TEMP 36.5; O2SAT 97; BMI 20.5
[2022-06-08 14:00] VITALS: BP 119/72
[2022-06-08 15:58] VITALS: BP 117/63; PULSE 65; RESP 18; TEMP 37.3; O2SAT 99
--- NOTE | 2022-06-08 16:07 | ED_ITS ---
HPI - General Adult General Chief complaint: General Medical Stated complaint: Withdrawals Time Seen by Provider: 06/08/22 16:04 Source: patient Mode of arrival: ambulatory Limitations: other History of Present Illness HPI narrative: 31-year-old female history of IV drug abuse, presents to the emergency department requesting to sleep in telling me that she is currently withdrawing from ?dope?. Patient tells me she last used 3 days ago. She tells me she has body aches and pains. She reports she just needs a place to sleep. Tells me this feels like her typical withdrawal. Denies SI and HI. Denies visual, auditory and tactile hallucinations. Denies medical complaints at this time other than head to toe body aches and pains. Refusing to participate in history and physical examination Related Data Home Medications Medication Instructions Recorded Confirmed clonidine HCl 0.1 mg tablet 1 tab PO BEDTIME PRN anxiety 12/01/21 06/09/22 docusate sodium 100 mg capsule 1 cap PO BID PRN constipation 12/01/21 06/09/22 hydroxyzine pamoate 50 mg capsule 1 cap PO BID PRN anxiety 12/01/21 06/09/22 nicotine (polacrilex) 2 mg gum 1 ea PO Q2H PRN Nicotine Cravings 12/01/21 06/09/22 quetiapine 50 mg tablet 1 tab PO BID 12/01/21 06/09/22 risperidone 1 mg tablet 1 tab PO BID 12/01/21 06/09/22 Previous Rx's Medication Instructions Recorded doxycycline hyclate 100 mg capsule 100 mg PO BID 6 days #12 caps 12/01/21 emtricitabine 200 mg-tenofovir 1 tab PO DAILY 27 days #27 tabs 12/01/21 disoproxil fumarate 300 mg tablet (Truvada) raltegravir 400 mg tablet 400 mg PO BID 27 days #54 tabs 12/01/21 buprenorphine 8 mg-naloxone 2 mg 1 film sublingual BID #8 ea 05/08/22 sublingual film (Suboxone) ondansetron 4 mg disintegrating 4 mg PO Q6-8H PRN nausea and 05/08/22 tablet vomiting #15 tabs Allergies Allergy/AdvReac Type Severity Reaction Status Date / Time Penicillins [PENICILLINS] Allergy Severe ANAPHYLAXIS Unverified 05/09/20 17:17 soap [SOAP] Allergy Intermediate ITCHING Unverified 05/09/20 17:17 acetaminophen [From TYLENOL] Allergy Unknown ANAPHYLAXIS Unverified 05/09/20 17:17 aspirin [ASA] Allergy Unknown ANAPHYLAXIS Unverified 05/09/20 17:17 latex [LATEX] Allergy Unknown ANAPHYLAXIS Unverified 05/09/20 17:17 Latex Allergy Unknown anaphylaxis Unverified 02/08/20 00:00 tramadol [TRAMADOL] Allergy Unknown HIVES Unverified 05/09/20 17:17 / cats Allergy Unknown moderately Uncoded 01/05/13 00:00 severe Shellfish Allergy Unknown Unknown Uncoded 11/30/21 21:17 tramadol Allergy Unknown rash Uncoded 01/05/13 00:00 Review of Systems Review of Systems: Constitutional : No Weight loss, No Fever, No Chills, No Fatigue, No Malaise ENT/Mouth : No sore throat, No Rhinorrhea Eyes: No Eye Pain, No Swelling, No Redness Cardiovascular : No Chest Pain, No SOB, No Dyspnea on Exertion, No Orthopnea, No Edema, No Palpitations Respiratory : No Cough, No Sputum, No Wheezing Gastrointestinal : No Nausea, No Vomiting, No Diarrhea, No Constipation, No abdominal Pain, No Hematochezia, No Melena Genitourinary : No Dysuria, No Urinary Frequency, No Hematuria, Musculoskeletal : No joint pain, + Myalgias, No Joint Swelling Skin : No Skin Lesions, No rash Neuro : No Weakness, No Numbness, No Dizziness, No Headache Psych : No Anxiety/Panic, No Depression All other systems reviewed and are negative Yes all other systems are reviewed and are negative [facility] Past Medical History Attestation statement: The following information was validated with the patient. Source: old records reviewed and nursing notes reviewed Medical History Substance abuse Social History Social History Substance Use Type: Heroin Advance Directives: No Advance Directives Information Provided: No Physical Exam ED Vital Signs: Vital Signs - 24 hr 06/08/22 12:38 06/08/22 15:58 06/08/22 23:34 Temperature 97.7 F 99.2 F Pulse Rate 65 65 55 Respiratory Rate 16 18 17 Blood Pressure 105/67 117/63 114/68 Pulse Oximetry 97 99 99 Oxygen Delivery Method Room Air Room Air Room Air BMI result Body Mass Index 20.5 vss Appearance: Alert.? Oriented X3.? No acute distress.? Head: Normocephalic, atraumatic, no step-offs or deformities Eyes: Pupils equal, round and reactive to light.? ENT: Pharynx normal.??External ears normal, TMs normal bilaterally and EAC's normal. No pain with manipulation of external ears bilaterally. No mastoid tenderness. Neck: Normal inspection.? Neck supple.? CVS: Normal heart rate and rhythm.? Pulses normal.? Respiratory: No respiratory distress.? Breath sounds normal.? Abdomen: Soft and nontender.? Skin: Skin warm and dry.? Normal skin color.? Normal skin turgor.? Extremities: No lower extremity edema.? No calf ttp. 5/5 strength to bilateral upper and lower extremities IVDA track mcdonald + Neuro: Oriented X 3.? No motor deficit.? No sensory deficit. CN 2-12 intact Course Reevaluation(s) Reevaluation #1: Patient's CBC within normal limits. Chemistry with no acute findings. Ethanol negative. COVID negative. UA, urine toxicology pending. Time: 17:00 Reevaluation #2: Patient was approached by the care team however patient kept falling asleep. Unable to participate in conversation. They will reassess at a later time. Time: 20:00 Reevaluation #3: Patient awake, ambulating with steady gait in hallway. Normal coordination. Going into the behavioral health pot pending substance use disorder evaluation. At this time patient will be placed into physician observation to allow more time to be evaluated by the behavioral health team for substance use disorder evaluation. At time observation was started patient [facility] cooperative no acute distress will continue to monitor. UA and urine toxicology pending. Time: 00:39 Medical Decision Making [facility] Narrative Medical decision making narrative: [id number] 31-year-old female presents stating she is in acute withdraw from dope last used 3 days ago. Reports body aches and pains. Physical examination with track mcdonald to bilateral upper extremities. Regular rate rhythm, lungs clear, abdomen soft nontender nondistended. Patient appears to be in no acute distress. Vital signs stable Plan at this time is to obtain basic labs, COVID. Will obtain EKG. Medical Records Medical records reviewed: Yes I reviewed the patient's medical records. Lab Data Lab results reviewed: Yes I reviewed the patient's lab results. Result diagrams: 06/08/22 16:22 06/08/22 16:22 Labs: Lab Results 06/08/22 06/08/22 06/08/22 Range/Units 16:22 16:22 16:22 WBC 5.4 (4.8-10.8) X10*3/uL RBC 5.41 (4.20-5.50) X10*6/uL Hgb 13.6 (12.0-16.0) g/dl Hct 40.8 (37.0-47.0) % MCV 75.4 L (80.0-98.0) fL MCH 25.1 L (27.0-33.0) pg MCHC 33.3 (31.0-35.0) g/dl RDW 15.1 (11.0-16.0) % Plt Count 480 H D (160-400) X10*3/uL MPV 9.4 (9.4-12.3) fL Immature Gran % (Auto) 0.4 (0.0-0.4) % Neut % (Auto) 79.5 H (45-73) % Lymph % (Auto) 16.2 L (20-40) % [place] % (Auto) 3.7 (2-11) % Eos % (Auto) 0.0 (0-4) % Baso % (Auto) 0.2 (0-2) % Lymph # (Auto) 0.9 L (1.2-4.9) X10*3/uL [place] # (Auto) 0.2 (0.1-1.2) X10*3/uL Eos # (Auto) 0.0 (0.0-0.4) X10*3/uL Baso # (Auto) 0.0 (0.0-0.2) X10*3/uL Abs Immat Gran (auto) 0.02 (0.00-0.03) X10*3/uL Absolute Neuts (auto) 4.3 (2.0-8.3) x10*3/uL Absolute Nucleated RBC 0.000 (0.0-0.012) X10*3/uL Nucleated RBC % (auto) 0.0 (0.0-0.2) /100WBC Sodium 141 (135-145) mmol/L Potassium 3.6 (3.3-5.1) mmol/L Chloride 99 (96-108) mmol/L Carbon Dioxide 26 (22-29) mmol/L Anion Gap 20 (12-20) BUN 16 D (9-16) mg/dL Creatinine 0.73 (0.5-1.4) mg/dL Estim Creat Clear Calc 95.0 Estimated GFR > 60 Random Glucose 99 (60-115) mg/dL Calcium 10.1 D (8.4-10.2) mg/dL Magnesium 2.3 (1.6-2.6) mg/dL Total Bilirubin 0.7 (0.0-1.0) mg/dL AST 21 (5-31) U/L ALT 12 (0-31) U/L Alkaline Phosphatase 88 (39-117) U/L Total Protein 9.0 H (6.5-8.0) g/dL Albumin 4.3 (3.5-5.0) g/dL Ethyl Alcohol < 10 mg/dL COVID-19 (ANGIE) Negative (Negative) COVID-19 Clin Com See Note ECG Data Attestation: I personally reviewed and interpreted this ECG as follows: Prior ECG tracings: available for review Interpretation: Ventricular rate of 53, NJ short, QRS normal, QT/QTC normal. EKG with sinus bradycardia with short NJ. No ST elevations or inversions concerning for ischemia. No significant changes when compared to previous however NJ is sh orter. Critical Care Time Critical Care Time Critical Care Time: No Discharge Plan Discharge Clinical Impression: Polysubstance abuse Patient Disposition: Still a Patient Prescriptions: No Action clonidine HCl 0.1 mg tablet 1 tab PO BEDTIME PRN (Reason: anxiety) nicotine (polacrilex) 2 mg gum 1 ea PO Q2H PRN (Reason: Nicotine Cravings) hydroxyzine pamoate 50 mg capsule 1 cap PO BID PRN (Reason: anxiety) docusate sodium 100 mg capsule 1 cap PO BID PRN (Reason: constipation) risperidone 1 mg tablet 1 tab PO BID quetiapine 50 mg tablet 1 tab PO BID doxycycline hyclate 100 mg capsule 100 mg PO BID 6 Days Qty: 12 0RF emtricitabine-tenofovir (TDF) [Truvada] 200-300 mg tablet 1 tab PO DAILY 27 Days Qty: 27 0RF raltegravir 400 mg tablet 400 mg PO BID 27 Days Qty: 54 0RF buprenorphine-naloxone [Suboxone] 8-2 mg film 1 film sublingual BID Qty: 8 0RF ondansetron 4 mg tablet,disintegrating 4 mg PO Q6-8H PRN (Reason: nausea and vomiting) Qty: 15 0RF
--- NOTE | 2022-06-08 16:21 | ECG_ITS ---
Test Reason : DRUG USE Blood Pressure : / mmHG Vent. Rate : 053 BPM Atrial Rate : 053 BPM P-R Int : 104 ms QRS Dur : 070 ms QT Int : 480 ms P-R-T Axes : 059 081 073 degrees QTc Int : 450 ms Sinus bradycardia with short MI T wave abnormality, consider anterior ischemia Abnormal ECG When compared with ECG of 01-DEC-2021 17:25, T wave inversion now evident in Anterior leads Referred By: Tunde Ferrari Electronically Signed By:ALEKSANDER ALCALA MD
[2022-06-08 16:27] LABS: MANUAL DIFF FLAG NO
[2022-06-08 16:31] LABS: Basophils Percent Auto 0.2 % (0-2); Hematocrit 40.8 % (37.0-47.0); Hemoglobin 13.6 g/dl (12.0-16.0); Imm Gran Abs Auto 0.02 X10*3/uL (0.00-0.03); Imm Gran Pct Auto 0.4 % (0.0-0.4); Lymphocytes Absolute Auto 0.9 X10*3/uL (1.2-4.9); Lymphocytes Percent Auto 16.2 % (20-40); Mean Corpuscular HGB Conc 33.3 g/dl (31.0-35.0); Mean Corpuscular Hemoglobin 25.1 pg (27.0-33.0); Mean Corpuscular Volume 75.4 fL (80.0-98.0); Mean Platelet Volume 9.4 fL (9.4-12.3); Monocytes Absolute Auto 0.2 X10*3/uL (0.1-1.2); Monocytes Percent Auto 3.7 % (2-11); Neutrophils Absolute Auto 4.3 x10*3/uL (2.0-8.3); Neutrophils Percent Auto 79.5 % (45-73); Platelet Count 480 X10*3/uL (160-400); Red Blood Count 5.41 X10*6/uL (4.20-5.50); Red Cell Distribution Width 15.1 % (11.0-16.0); White Blood Count 5.4 X10*3/uL (4.8-10.8)
[2022-06-08 16:43] LABS: Alanine Aminotransferase 12 U/L (0-31); Albumin Level 4.3 g/dL (3.5-5.0); Alkaline Phosphatase 88 U/L (39-117); Anion Gap 20 (12-20); Aspartate Amino Transferase 21 U/L (5-31); Bilirubin Total 0.7 mg/dL (0.0-1.0); Blood Urea Nitrogen 16 mg/dL (9-16); Calcium 10.1 mg/dL (8.4-10.2); Carbon Dioxide 26 mmol/L (22-29); Chloride 99 mmol/L (96-108); Estimated Glomerular Filt Rate > 60; Ethanol < 10 mg/dL; Glucose Random 99 mg/dL (60-115); Magnesium 2.3 mg/dL (1.6-2.6); Potassium 3.6 mmol/L (3.3-5.1); Sodium 141 mmol/L (135-145)
[2022-06-08 16:44] LABS: COVID-19 Test Negative (Negative); IDNOW Serial# 16C4AD1C
--- NOTE | 2022-06-08 17:59 | PC.NURSE ---
Pt asleep, awakes easily to voice but uncooperative at times. refusing vitals at this time.
[2022-06-08 23:34] VITALS: BP 114/68; PULSE 55; RESP 17; O2SAT 99
[2022-06-09] MEDS: LORazepam 1 MG TABLET 2 MG PO (02:27)
[2022-06-09 06:00] VITALS: RESP 16; TEMP 36.6
[2022-06-09 06:14] LABS: Appearance Urine Clear; Color Urine Dark Yellow; Glucose Urine UA Negative (Negative); Leukocyte Esterase Urine Small (1+) (Negative); Nitrite Urine Negative (Negative); PH 6.5 (5.0-9.0); Specific Gravity - Urine 1.025 (1.005-1.025); UMIC TRIGGER UACC YES; Urine Blood Negative (Negative); Urine Ketones 40 mg/dL (Negative); Urine Protein Trace mg/dL (Neg-Trace)
[2022-06-09 06:17] LABS: UPreg QC Valid YES; Urine Pregnancy NEGATIVE (NEGATIVE)
[2022-06-09 06:19] LABS: Bacteria Urine None Seen (None Seen); Hyaline Casts Urine 0-2 /LPF (0-2); RBC Urine 0-2 /HPF (0-2); UACC Culture Trigger YES
--- NOTE | 2022-06-09 06:31 | PC.NURSE ---
Patient sleeping comfortably without any distress. Will continue to monitor.
[2022-06-09 06:32] LABS: Amphetamine Screen Urine Not Detected (Not Detect); Barbiturates, Urine Not Detected (Not Detect); Benzodiazepines Screen Urine Not Detected (Not Detect); Cannabinoid Screen Urine Not Detected (Not Detect); Cocaine Screen Urine POSITIVE (Not Detect); Fentanyl, urine POSITIVE (Not Detect); Opiate Screen Urine POSITIVE (Not Detect); Phencyclidine Screen Urine Not Detected (Not Detect)
--- NOTE | 2022-06-09 09:47 | PC.NURSE ---
pt met with addiction counselor, states feeling nausea, last used iv heroin yesterday, self repositioning on bed.
--- NOTE | 2022-06-09 09:54 | MHC.RECOVRN ---
This ghost writer met w/ pt, pt sleeping, awake to verbal stimuli. Pt reports last use, snorted 1 bag heroin right before coming to hospital last night. Pt states for the past year, has been using 2 bundles IV heroin daily, HERNÁN IV daily. Pt states no history of overdose. Pt states has not been to treatment in the past. Pt requesting detox. COWS 18, Provider made aware. This ghost writer starting [facility] bedsearch.
[2022-06-09] MEDS: methADONE HCl 20 MG/2 ML ORAL.CONC PO (10:18)
--- NOTE | 2022-06-09 10:23 | PC.NURSE ---
took meds without difficulty. sat up, ate banana and orange juice. self repsotioned.
--- NOTE | 2022-06-09 10:30 | PHA.MEDREC ---
Pharmacy Consult ? Medication Reconciliation Pharmacy has reviewed the medication reconciliation completed by Surinder. Most recently filled was suboxone in . Patient never filled Truvada or Ralgetivir. Queitapine 50 mg BID and risperidome 1 mg BID were last filled in september, 2021. I left PRN medicaitons that were filled in september on medication list. Yulia Acosta, PharmD
[2022-06-09] MEDS: Naloxone HCl Nasal TAKE HOME 4 MG SPRAY NOSTRILALT (13:38)
--- NOTE | 2022-06-09 13:38 | PC.NURSE ---
patient wanting to discharge vs going voluntarily to a detox, provider aware, patient being given discharge paperwork a take home nasal narcan, pt currently getting dressed and will discharge.
== END 2022-06-09 13:49 | disposition home or self-care (01) ==
PROVIDERS: Physician Assistant; Emergency Provider Emergency Medicine
DX: F11.23 Opioid dependence with withdrawal (principal); R45.1 Restlessness and agitation; F19.10 Other psychoactive substance abuse, uncomplicated; Z20.822 Contact with and (suspected) exposure to COVID-19; F41.9 Anxiety disorder, unspecified; Z79.899 Other long term (current) drug therapy
CPT/HCPCS: 80053; 80307; 81001; 81025; 82077; 83735; 85025; 87086; 87635; 93005; 99284

== ENCOUNTER 2022-06-16 19:28 | Emergency (ER) | payer OTHER, SELFPAY ==
[2022-06-16] VITALS (14 sets, daily range): BP systolic 106–117; BP diastolic 62–72; PULSE 68–78; RESP 14–19; TEMP 37.6; O2SAT 100; BMI 18.3
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
[2022-06-16] MEDS: LORazepam 1 MG TABLET 2 MG PO (20:01)
--- NOTE | 2022-06-16 20:04 | PC.NURSE ---
Pt. lying in hallway bed. Labile mood, one moment calm and cooperative and the next yelling obscenities and telling everyone they are going to usp . Pt. aggreeable to take PO ativan to help remain calm. Medicated per MAR. Vitals obtained. Will continue to monitor.
--- NOTE | 2022-06-16 20:13 | PC.NURSE ---
ordered Zyprexa as pt. still a bit agitated. Prior to administration, pt. began to calm and is now sleeping. OK per to hold off on Zyprexa for now.
[2022-06-16] MEDS: OLANZapine 10 MG VIAL IM (20:35)
[2022-06-16 21:31] LABS: COVID-19 Test Negative (Negative)
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
--- NOTE | 2022-06-17 10:19 | PC.NURSE ---
patient sleeping on bed, turning over repositioning self.
[2022-06-17 18:36] LABS: MANUAL DIFF FLAG NO
[2022-06-17 18:37] LABS: Basophils Percent Auto 0.2 % (0-2); Hematocrit 39.9 % (37.0-47.0); Hemoglobin 12.7 g/dl (12.0-16.0); Imm Gran Abs Auto 0.02 X10*3/uL (0.00-0.03); Imm Gran Pct Auto 0.2 % (0.0-0.4); Lymphocytes Absolute Auto 1.7 X10*3/uL (1.2-4.9); Mean Corpuscular HGB Conc 31.8 g/dl (31.0-35.0); Mean Corpuscular Hemoglobin 24.7 pg (27.0-33.0); Mean Corpuscular Volume 77.6 fL (80.0-98.0); Mean Platelet Volume 9.2 fL (9.4-12.3); Monocytes Absolute Auto 0.5 X10*3/uL (0.1-1.2); Monocytes Percent Auto 5.6 % (2-11); Neutrophils Absolute Auto 5.9 x10*3/uL (2.0-8.3); Platelet Count 427 X10*3/uL (160-400); Red Blood Count 5.14 X10*6/uL (4.20-5.50); Red Cell Distribution Width 15.1 % (11.0-16.0); White Blood Count 8.2 X10*3/uL (4.8-10.8)
[2022-06-17 19:08] LABS: Alanine Aminotransferase 34 U/L (0-31); Albumin Level 3.5 g/dL (3.5-5.0); Alkaline Phosphatase 100 U/L (39-117); Anion Gap 16 (12-20); Aspartate Amino Transferase 22 U/L (5-31); Bilirubin Direct 0.2 mg/dL (0.0-0.5); Bilirubin Total 0.4 mg/dL (0.0-1.0); Blood Urea Nitrogen 7 mg/dL (9-16); Carbon Dioxide 26 mmol/L (22-29); Chloride 104 mmol/L (96-108); Creatinine Clr Calc Pharmacy 91.4; Estimated Glomerular Filt Rate > 60; Glucose Random 106 mg/dL (60-115); Potassium 3.8 mmol/L (3.3-5.1); Sodium 142 mmol/L (135-145); Total Protein 7.8 g/dL (6.5-8.0)
[2022-06-17 21:22] VITALS: BP 122/86; PULSE 89; RESP 16; TEMP 37.3; O2SAT 97
[2022-06-18 00:05] VITALS: BP 120/78; PULSE 76; RESP 16; TEMP 37.1; O2SAT 99
--- NOTE | 2022-06-18 07:26 | PC.NURSE ---
Patient slept through whole evening and night, no distress observed/reported, patient did not engage well with N clinician but denied SI/HI/AVH. Patient was cleared for discharge by N, discharge paper ready, VSS, no behavior concerns, will continue to monitor.
== END 2022-06-18 09:00 | disposition home or self-care (01) ==
PROVIDERS: Emergency Medicine Emergency Medical Services; Emergency Provider Emergency Medicine
DX: F33.1 Major depressive disorder, recurrent, moderate (principal); R45.851 Suicidal ideations; Z20.822 Contact with and (suspected) exposure to COVID-19; F11.10 Opioid abuse, uncomplicated; Z79.899 Other long term (current) drug therapy
CPT/HCPCS: 36415; 80053; 82248; 85025; 87635; 96372; 99284; 99285

== ENCOUNTER 2022-08-13 17:47 | Emergency (ER) | payer OTHER, SELFPAY ==
[2022-08-13 18:00] VITALS: BP 114/79; BP 116/78; PULSE 126; PULSE 140; RESP 17; TEMP 37.1; O2SAT 93; O2SAT 94; BMI 18.3
--- NOTE | 2022-08-13 18:40 | PC.NURSE ---
Pt reports she would like to leave AMA. LAINE lopez
--- NOTE | 2022-08-13 19:45 | ED.GENADULT ---
HPI - General Adult General Chief complaint: Dyspnea Stated complaint: SYNCOPE, +HEADSTRIKE Time Seen by Provider: 08/13/22 17:53 Source: patient and EMS Mode of arrival: EMS Limitations: other (Patient not cooperative with history of physical exam) History of Present Illness HPI narrative: This is a 32-year-old female presenting to the emergency department via ambulance patient states she had an episode of shortness of breath, after having this episode she decided to sit down because she felt like she was going to pass out, she tells me that she thinks it was a panic attack. She tells me she was recently diagnosed with pneumonia in the hospital few days ago. Immediately upon patient arriving to the emergency department she is requesting to leave and refusing to answer questions, refusing medical intervention, minimally contributory to history and physical exam. Patient tells me she is feeling much better and she is not having chest pain, shortness of breath, fevers, chills, headache, vision changes and dizziness. She tells me she came to the hospital because she is ?people pleasing and did not want tell the ambulance company that she did want to come in to be evaluated. Related Data Home Medications Medication Instructions Recorded Confirmed No Known Home Meds 06/17/22 06/17/22 Allergies Allergy/AdvReac Type Severity Reaction Status Date / Time Penicillins [PENICILLINS] Allergy Severe ANAPHYLAXIS Verified 06/16/22 20:10 soap [SOAP] Allergy Intermediate ITCHING Verified 06/16/22 20:10 acetaminophen [From TYLENOL] Allergy Unknown ANAPHYLAXIS Verified 06/16/22 20:10 aspirin [ASA] Allergy Unknown ANAPHYLAXIS Verified 06/16/22 20:10 latex [LATEX] Allergy Unknown ANAPHYLAXIS Verified 06/16/22 20:10 Latex Allergy Unknown anaphylaxis Unverified 02/08/20 00:00 tramadol [TRAMADOL] Allergy Unknown HIVES Verified 06/16/22 20:10 / cats Allergy Unknown moderately Uncoded 06/16/22 20:10 severe Shellfish Allergy Unknown Unknown Uncoded 06/16/22 20:10 tramadol Allergy Unknown rash Uncoded 01/05/13 00:00 Review of Systems Review of Systems: Constitutional : No Weight loss, No Fever, No Chills, No Fatigue, No Malaise ENT/Mouth : No sore throat, No Rhinorrhea Eyes: No Eye Pain, No Swelling, No Redness Cardiovascular : No Chest Pain, No SOB, No Dyspnea on Exertion, No Orthopnea, No Edema, No Palpitations Respiratory : No Cough, No Sputum, No Wheezing Gastrointestinal : No Nausea, No Vomiting, No Diarrhea, No Constipation, No abdominal Pain, No Hematochezia, No Melena Genitourinary : No Dysuria, No Urinary Frequency, No Hematuria, Musculoskeletal : No joint pain, No Myalgias, No Joint Swelling Skin : No Skin Lesions, No rash Neuro : No Weakness, No Numbness, No Dizziness, No Headache Psych : No Anxiety/Panic, No Depression All other systems reviewed and are negative Yes all other systems are reviewed and are negative [facility] Past Medical History Attestation statement: The following information was validated with the patient. Source: old records reviewed and nursing notes reviewed Medical History Substance abuse Social History Social History Patient Tobacco Use Status: Tobacco use Unknown Substance Use Type: Heroin Advance Directives: No Advance Directives Information Provided: No Physical Exam ED Vital Signs: Vital Signs - 24 hr 08/13/22 18:00 Temperature 98.7 F Pulse Rate 126 H Respiratory Rate 17 Blood Pressure 114/79 Pulse Oximetry 93 Oxygen Delivery Method Nasal Cannula BMI result Body Mass Index 18.3 Patient slightly tachycardic however likely secondary to anxiety and agitation Appearance: Alert.? Oriented X3.? No acute distress.? Patient anxious, agitated and pacing around her room trying to leave Head: Normocephalic, atraumatic, no step-offs or deformities Eyes: Pupils equal, round and reactive to light.? ENT: Pharynx normal.? Neck: Normal inspection.? Neck supple.? CVS: Normal heart rate and rhythm.? Pulses normal.? Respiratory: No respiratory distress.? Breath sounds normal.? Abdomen: Soft and nontender.? Skin: Skin warm and dry.? Normal skin color.? Normal skin turgor.? Extremities: No lower extremity edema.?5/5 strength to bilateral upper and lower extremities Neuro: Oriented X 3.? No motor deficit.? No sensory deficit. CN 2-12 intact Course Reevaluation(s) Reevaluation #1: Patient left against medical advice. I explained to her that this could be life-threatening, I was going to order D-dimer and explained this to patient, she refused all laboratory studies any ways. Requesting to leave. Signed out against medical advice Time: 19:49 Medical Decision Making Medical Decision Making MDM Narrative: This is a 32-year-old female presenting by ambulance for an episode of shortness of breath followed by dizziness, patient brought herself down to the ground and sat down, she tells me she thinks she had a panic attack. Recently diagnosed with pneumonia. 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 Requesting to leave in refusing further intervention and treatment. Limited history secondary to patient being poor historian, and unwilling to participate in exam and history. Physical examination benign Concerns for possible PE, arrhythmia, infection. Discharge Plan Discharge Clinical Impression: Shortness of breath, Syncope, Left against medical advice Patient Disposition: Left Against Medical Advice Additional Instructions: You decided to leave against medical advice. Risks include , worsening symptoms, decreased quality of life, pain Take your medications as prescribed. If you were prescribed antibiotics today, it is important that you take your medication to their entirety, do not skip any doses, do not finish them early. Follow-up with your primary care provider this week. Return to the emergency department with new or worsening symptoms. Such as fevers, chills, chest pain, shortness of breath, nausea, vomiting, dizziness, headache, vision changes, lethargy In case of emergency call 911 Prescriptions: No Action No Known Home Meds Stand Alone Forms: Against Medical Advice Interventions: ED Discharge Assessment Last Done: 08/13/22 19:20 Discharge Date/Time: 08/13/22 19:22
== END 2022-08-13 19:22 | disposition left against medical advice (07) ==
PROVIDERS: Emergency Provider Emergency Medicine
DX: R55 Syncope and collapse (principal); R06.02 Shortness of breath; F41.9 Anxiety disorder, unspecified; R45.1 Restlessness and agitation; R00.0 Tachycardia, unspecified; F19.10 Other psychoactive substance abuse, uncomplicated; Z53.29 Procedure and treatment not carried out because of patient's decision for other reasons
CPT/HCPCS: 99282

== ENCOUNTER 2022-08-20 06:29 | Emergency (ER) | payer OTHER, SELFPAY ==
[2022-08-20 06:33] VITALS: BP 106/75; BP 117/68; PULSE 68; PULSE 69; RESP 16; TEMP 36.8; O2SAT 100; O2SAT 99; BMI 16.6
[2022-08-20 06:59] LABS: MANUAL DIFF FLAG NO
[2022-08-20 07:01] LABS: Basophils Percent Auto 0.5 % (0-2); Eosinophils Percent Auto 0.7 % (0-4); Hematocrit 28.2 % (37.0-47.0); Hemoglobin 8.8 g/dl (12.0-16.0); Imm Gran Abs Auto 0.02 X10*3/uL (0.00-0.03); Imm Gran Pct Auto 0.3 % (0.0-0.4); Lymphocytes Absolute Auto 1.5 X10*3/uL (1.2-4.9); Lymphocytes Percent Auto 24.8 % (20-40); Mean Corpuscular HGB Conc 31.2 g/dl (31.0-35.0); Mean Corpuscular Hemoglobin 24.6 pg (27.0-33.0); Mean Corpuscular Volume 78.8 fL (80.0-98.0); Mean Platelet Volume 9.1 fL (9.4-12.3); Monocytes Absolute Auto 0.3 X10*3/uL (0.1-1.2); Monocytes Percent Auto 5.3 % (2-11); Neutrophils Absolute Auto 4.2 x10*3/uL (2.0-8.3); Neutrophils Percent Auto 68.4 % (45-73); Platelet Count 382 X10*3/uL (160-400); Red Blood Count 3.58 X10*6/uL (4.20-5.50); Red Cell Distribution Width 14.4 % (11.0-16.0); White Blood Count 6.1 X10*3/uL (4.8-10.8)
--- NOTE | 2022-08-20 07:03 | ED_ITS ---
HPI - General Adult General Chief complaint: Allergic Reaction Stated complaint: Lower Lip Swelling Time Seen by Provider: 08/20/22 06:39 Source: patient Mode of arrival: ambulatory History of Present Illness HPI narrative: 32-year-old female who is brought in by EMS, has known polysubstance use disorder at baseline patient is concerned regarding some mild lower left lateral lip swelling that she states started after she may have eaten something containing wall minutes (there is no mention of wall that is as an allergy in her allergy list). She denies any difficulty swallowing or breathing and is also concerned about some wounds on the left temporal region of her head. Related Data Home Medications Medication Instructions Recorded Confirmed No Known Home Meds 06/17/22 06/17/22 Allergies Allergy/AdvReac Type Severity Reaction Status Date / Time Penicillins [PENICILLINS] Allergy Severe ANAPHYLAXIS Verified 06/16/22 20:10 soap [SOAP] Allergy Intermediate ITCHING Verified 06/16/22 20:10 acetaminophen [From TYLENOL] Allergy Unknown ANAPHYLAXIS Verified 06/16/22 20:10 aspirin [ASA] Allergy Unknown ANAPHYLAXIS Verified 06/16/22 20:10 latex [LATEX] Allergy Unknown ANAPHYLAXIS Verified 06/16/22 20:10 Latex Allergy Unknown anaphylaxis Unverified 02/08/20 00:00 tramadol [TRAMADOL] Allergy Unknown HIVES Verified 06/16/22 20:10 / cats Allergy Unknown moderately Uncoded 06/16/22 20:10 severe Shellfish Allergy Unknown Unknown Uncoded 06/16/22 20:10 tramadol Allergy Unknown rash Uncoded 01/05/13 00:00 Review of Systems Review of Systems: Pertinent positives and negatives as stated in HPI [facility] Past Medical History Source: nursing notes reviewed Medical History Substance abuse Social History Social History Patient Tobacco Use Status: Tobacco use Unknown Substance Use Type: Heroin Advance Directives: No Advance Directives Information Provided: Yes Physical Exam ED Vital Signs: Vital Signs - 24 hr 08/20/22 06:33 08/20/22 07:42 08/20/22 09:17 Temperature 98.2 F Pulse Rate 69 72 65 Respiratory Rate 16 14 16 Blood Pressure 106/75 94/62 106/59 L Pulse Oximetry 99 97 100 Oxygen Delivery Method Room Air Room Air Room Air 08/20/22 14:18 Temperature Pulse Rate 62 Respiratory Rate 16 Blood Pressure 107/66 Pulse Oximetry 98 Oxygen Delivery Method Room Air BMI result Body Mass Index 16.6 VITAL SIGNS: Reviewed. GENERAL: Well developed, well nourished, in no acute distress. HEAD: Normocephalic/there are 2 well-healing irregular, superficial wounds to the left temporal area with clean base is an rolled edges and no surrounding erythema or induration. EYES: PERRLA, EOMI EARS: Ext canals without abnormality, TMs non-bulging and non-erythematous NOSE: Nares patent bilateral OROPHARYNX: no oral lesions noted, posterior pharynx clear and non-erythematous without noted tonsillar enlargement/erythema/exudates, no trismus, no lip/facial/tongue swelling, specifically the lip area appears to be a developing canker sore as there is a whitish color change that is not characteristic of an angioedema reaction NECK: Supple, no adenopathy LUNGS: Normal breath sounds. No adventitious sounds or accessory muscle use. SpO2<99> CARDIOVASCULAR: Regular rate and rhythm without noted murmurs ABDOMEN: Soft, non-tender, non-distended with bowel sounds. MUSCULOSKELETAL: No tenderness, deformities, or effusions noted on gross inspection. EXTREMITIES: No cyanosis, clubbing or edema multiple injection sites noted to bilateral upper extremities. SKIN: Inspection of the skin reveals no rashes NEUROLOGIC: Alert and oriented x 3. Strength and sensation to light touch were grossly intact x 4. Medications Administered Discontinued Medications Generic Name Dose Route Start Last Admin Trade Name Freq PRN Reason Stop Dose Admin Bacitracin 1 appl 08/20/22 07:29 08/20/22 08:20 Bacitracin Oint 14 Gm Tube TOPICAL 08/20/22 07:30 1 appl ONCE ONE Administration Protocol Medical Decision Making Medical Decision Making MDM Narrative: 32-year-old female who does not appear to be in angioedema or anaphylaxis and instead apparently has wounds in several stages of healing consistent with her underlying injection history but there appears to be no obvious infection and patient appears to be developing a ?canker sore? to the lower left lip. Will obtain basic labs as well as toxicology as patient is requesting detox at this time. I reviewed all of patient's lab work, she is no leukocytosis, chemistries are within normal limits, serology is negative and she is otherwise medically cleared for placement. assistant strength coach did evaluate the patient and patient now has a bed at [place]. She will be discharged to that facility in stable condition. There is no evidence of angioedema or anaphylaxis. Differential Diagnosis Differential Diagnoses: The differential diagnosis associated with the presentation includes IVDA, canker sore, polysubstance use disorder Lab Data MDM Lab Attestation statement: I reviewed the patient's lab results. Please see discussion above Result Diagrams: 08/20/22 06:54 08/20/22 06:54 Labs: Lab Results 08/20/22 08/20/22 08/20/22 Range/Units 06:54 06:54 06:54 WBC 6.1 (4.8-10.8) X10*3/uL RBC 3.58 L D (4.20-5.50) X10*6/uL Hgb 8.8 L D (12.0-16.0) g/dl Hct 28.2 L D (37.0-47.0) % MCV 78.8 L (80.0-98.0) fL MCH 24.6 L (27.0-33.0) pg MCHC 31.2 (31.0-35.0) g/dl RDW 14.4 (11.0-16.0) % Plt Count 382 (160-400) X10*3/uL MPV 9.1 L (9.4-12.3) fL Immature Gran % (Auto) 0.3 (0.0-0.4) % Neut % (Auto) 68.4 (45-73) % Lymph % (Auto) 24.8 (20-40) % Rush % (Auto) 5.3 (2-11) % Eos % (Auto) 0.7 (0-4) % Baso % (Auto) 0.5 (0-2) % Lymph # (Auto) 1.5 (1.2-4.9) X10*3/uL Rush # (Auto) 0.3 (0.1-1.2) X10*3/uL Eos # (Auto) 0.0 (0.0-0.4) X10*3/uL Baso # (Auto) 0.0 (0.0-0.2) X10*3/uL Abs Immat Gran (auto) 0.02 (0.00-0.03) X10*3/uL Absolute Neuts (auto) 4.2 (2.0-8.3) x10*3/uL Absolute Nucleated RBC 0.000 (0.0-0.012) X10*3/uL Nucleated RBC % (auto) 0.0 (0.0-0.2) /100WBC Sodium 139 (135-145) mmol/L Potassium 3.8 (3.3-5.1) mmol/L Chloride 103 (96-108) mmol/L Carbon Dioxide 30 H (22-29) mmol/L Anion Gap 10 L (12-20) BUN 10 (9-16) mg/dL Creatinine 0.73 (0.5-1.4) mg/dL Estim Creat Clear Calc 78.5 Estimated GFR > 60 Random Glucose 102 (60-115) mg/dL Calcium 8.6 (8.4-10.2) mg/dL Total Bilirubin 0.2 (0.0-1.0) mg/dL AST 17 (5-31) U/L ALT 13 (0-31) U/L Alkaline Phosphatase 81 (39-117) U/L Total Protein 6.8 (6.5-8.0) g/dL Albumin 3.2 L (3.5-5.0) g/dL Ethyl Alcohol < 10 mg/dL COVID-19 (ANGIE) (Negative) COVID-19 Clin Com Influenza Type A (MARS) Negative (Negative) Influenza Type B (MARS) Negative (Negative) Influenza A & B Note See Note 08/20/22 Range/Units 06:54 WBC (4.8-10.8) X10*3/uL RBC (4.20-5.50) X10*6/uL Hgb (12.0-16.0) g/dl Hct (37.0-47.0) % MCV (80.0-98.0) fL MCH (27.0-33.0) pg MCHC (31.0-35.0) g/dl RDW (11.0-16.0) % Plt Count (160-400) X10*3/uL MPV (9.4-12.3) fL Immature Gran % (Auto) (0.0-0.4) % Neut % (Auto) (45-73) % Lymph % (Auto) (20-40) % Rush % (Auto) (2-11) % Eos % (Auto) (0-4) % Baso % (Auto) (0-2) % Lymph # (Auto) (1.2-4.9) X10*3/uL Rush # (Auto) (0.1-1.2) X10*3/uL Eos # (Auto) (0.0-0.4) X10*3/uL Baso # (Auto) (0.0-0.2) X10*3/uL Abs Immat Gran (auto) (0.00-0.03) X10*3/uL Absolute Neuts (auto) (2.0-8.3) x10*3/uL Absolute Nucleated RBC (0.0-0.012) X10*3/uL Nucleated RBC % (auto) (0.0-0.2) /100WBC Sodium (135-145) mmol/L Potassium (3.3-5.1) mmol/L Chloride (96-108) mmol/L Carbon Dioxide (22-29) mmol/L Anion Gap (12-20) BUN (9-16) mg/dL Creatinine (0.5-1.4) mg/dL Estim Creat Clear Calc Estimated GFR Random Glucose (60-115) mg/dL Calcium (8.4-10.2) mg/dL Total Bilirubin (0.0-1.0) mg/dL AST (5-31) U/L ALT (0-31) U/L Alkaline Phosphatase (39-117) U/L Total Protein (6.5-8.0) g/dL Albumin (3.5-5.0) g/dL Ethyl Alcohol mg/dL COVID-19 (ANGIE) Negative (Negative) COVID-19 Clin Com See Note Influenza Type A (MARS) (Negative) Influenza Type B (MARS) (Negative) Influenza A & B Note External Record Review External record reviewed: Outpatient record and Prior outpatient labs Discharge Plan Discharge Clinical Impression: Polysubstance use disorder Patient Disposition: Xfer Other Instructions: Polysubstance Abuse (ED) Additional Instructions: Return to the ER for any difficulties. Prescriptions: No Action No Known Home Meds
[2022-08-20 07:15] LABS: COVID-19 Test Negative (Negative); IDNOW Serial# 16C4AD1C; IDNOW Serial# BCCEAD1C; Influenza A Negative (Negative); Influenza B2 Negative (Negative)
[2022-08-20 07:21] LABS: Alanine Aminotransferase 13 U/L (0-31); Albumin Level 3.2 g/dL (3.5-5.0); Alkaline Phosphatase 81 U/L (39-117); Anion Gap 10 (12-20); Aspartate Amino Transferase 17 U/L (5-31); Bilirubin Total 0.2 mg/dL (0.0-1.0); Blood Urea Nitrogen 10 mg/dL (9-16); Calcium 8.6 mg/dL (8.4-10.2); Carbon Dioxide 30 mmol/L (22-29); Chloride 103 mmol/L (96-108); Creatinine Clr Calc Pharmacy 78.5; Estimated Glomerular Filt Rate > 60; Ethanol < 10 mg/dL; Glucose Random 102 mg/dL (60-115); Potassium 3.8 mmol/L (3.3-5.1); Sodium 139 mmol/L (135-145); Total Protein 6.8 g/dL (6.5-8.0)
[2022-08-20 07:42] VITALS: BP 94/62; PULSE 72; RESP 14; O2SAT 97
[2022-08-20] MEDS: Bacitracin Oint 14 GM TUBE 1 APPL TOPICAL (08:20)
--- NOTE | 2022-08-20 08:55 | MHC.RECOVRN ---
Met with pt in 22H to discuss substance use and desire for ATS. Pt awake, alert, easily engages in conversation. Voices excitement and hope to enter treatment. 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 Pt reports some alcohol use, can not quantify how much. Pt currently reporting withdrawal symptoms including restlessness, slight lacrimation. Pt reports one ATS admission years ago. Pt reports recently being [place] and had been receiving 50 mg methadone while inpatient. Pt requesting methadone to help address withdrawal symptoms while awaiting ATS placement. Discussed with Bobbi Bonilla APRN.
[2022-08-20 09:17] VITALS: BP 106/59; PULSE 65; RESP 16; O2SAT 100
--- NOTE | 2022-08-20 14:02 | MHC.RECOVRN ---
This newswriter spoke w/ [facility], [facility]. Patient was admitted to detox, admission time 4:00pm.
[2022-08-20 14:18] VITALS: BP 107/66; PULSE 62; RESP 16; O2SAT 98
--- NOTE | 2022-08-20 15:20 | PC.NURSE ---
patient a/ox4 . Went over discharge instructions as ordered by provider . patient to waiting room for transportation to detox . patient has no questions at this times .
== END 2022-08-20 15:26 | disposition other institution (70) ==
PROVIDERS: Emergency Provider Student in an Organized Health Care Education/Training Program; PCP Family Medicine
DX: F19.10 Other psychoactive substance abuse, uncomplicated (principal); Z20.822 Contact with and (suspected) exposure to COVID-19
CPT/HCPCS: 80053; 82077; 85025; 87502; 87635; 99283

== ENCOUNTER 2022-09-17 03:56 | Emergency (ER) | payer OTHER, SELFPAY ==
[2022-09-17 04:02] VITALS: BP 106/63; PULSE 76; RESP 16; TEMP 36.9; O2SAT 100; BMI 18.3
--- NOTE | 2022-09-17 04:41 | ED.SKABFB ---
HPI - Skin/Abscess/Foreign Bdy General Chief complaint: Skin/Abscess/Foreign Body Stated complaint: Rash Time Seen by Provider: 09/17/22 04:41 Source: patient Mode of arrival: EMS Limitations: no limitations History of Present Illness HPI narrative: Patient history of IV cocaine and heroin abuse came by EMS for rash over extremities and the forehead patient been here multiple times for substance abuse rash seems to be from cocaine/MRSA infection no fever no chills patient requesting to go to detox Related Data Previous Rx's Medication Instructions Recorded doxycycline hyclate 100 mg tablet 100 mg PO BID #20 tabs 09/17/22 Allergies Allergy/AdvReac Type Severity Reaction Status Date / Time Penicillins [PENICILLINS] Allergy Severe ANAPHYLAXIS Verified 06/16/22 20:10 soap [SOAP] Allergy Intermediate ITCHING Verified 06/16/22 20:10 aspirin [ASA] Allergy Unknown ANAPHYLAXIS Verified 06/16/22 20:10 latex [LATEX] Allergy Unknown ANAPHYLAXIS Verified 06/16/22 20:10 Latex Allergy Unknown anaphylaxis Unverified 02/08/20 00:00 tramadol [TRAMADOL] Allergy Unknown HIVES Verified 06/16/22 20:10 / cats Allergy Unknown moderately Uncoded 06/16/22 20:10 severe Shellfish Allergy Unknown Unknown Uncoded 06/16/22 20:10 tramadol Allergy Unknown rash Uncoded 01/05/13 00:00 Review of Systems Review of Systems: Yes all other systems are reviewed and are negative PMFSH Past Medical History Medical History Substance abuse Social History Social History Patient Tobacco Use Status: Tobacco use Unknown Substance Use Type: Heroin Advance Directives: No Physical Exam Vital Signs: Vital Signs: Last Vital Signs Temp 98.3 F 09/17/22 06:49 Pulse 77 09/17/22 06:49 Resp 18 09/17/22 06:49 BP 104/62 09/17/22 06:49 Pulse Ox 95 09/17/22 06:49 O2 Del Method 09/17/22 06:49 BMI result Body Mass Index 18.3 Appearance: Alert. Oriented X3. No acute distress. Eyes: PERRLA, No Nystagmus ENT: Pharynx normal. Oral Mucosa moist Neck: Normal inspection. Neck supple. CVS: Normal heart rate and rhythm. Pulses normal. Respiratory: No respiratory distress. Equal air entry bilateral, no wheezing/rales/rhonchi Abdomen: Soft and nontender. Bowel sounds are present, no mass palpable, no CVA tenderness Skin: Skin warm and dry. Normal skin color. Normal skin turgor. Extremities: No lower extremity edema. No calf tenderness IVDA track mcdonald on upper extremities with multiple ulcers small ulcer on the left forehead looks like friction rash Neuro: Oriented X 3. No motor deficit. No sensory deficit.No cerebellar signs , cranial nerves II-XII intact Medications Administered Discontinued Medications Generic Name Dose Route Start Last Admin Trade Name Freq PRN Reason Stop Dose Admin Acetaminophen 650 mg 09/17/22 06:55 09/17/22 07:09 Acetaminophen 325 Mg Tablet PO 09/17/22 06:56 650 mg ONCE ONE Administration Doxycycline Monohydrate 100 mg 09/17/22 04:43 09/17/22 04:50 Doxycycline Monohydrate 100 Mg Capsule PO 09/17/22 04:44 100 mg ONCE ONE Administration Medical Decision Making Medical Decision Making [facility] Narrative: patient with polysubstance abuse requesting detox placement 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
[2022-09-17] MEDS: Doxycycline Monohydrate 100 MG CAPSULE PO (04:50)
[2022-09-17 06:49] VITALS: BP 104/62; PULSE 77; RESP 18; TEMP 36.8; O2SAT 95
--- NOTE | 2022-09-17 06:57 | PC.NURSE ---
Pt reporting 8/[address] Elizabeth aware. Plan pt to receive tylenol po.
[2022-09-17] MEDS: Acetaminophen 325 MG TABLET 650 MG PO (07:09)
--- NOTE | 2022-09-17 07:11 | PC.NURSE ---
pt medicated per MAR.
--- NOTE | 2022-09-17 08:23 | PC.NURSE ---
PT WAS PROVIDED FOOD AND DRINKS SHE IS NOW SLEEPING IN NAD
[2022-09-17 09:00] LABS: COVID-19 Test Negative (Negative); IDNOW Serial# 16C4AD1C
[2022-09-17 09:02] LABS: UPreg QC Valid YES; Urine Pregnancy NEGATIVE (NEGATIVE)
[2022-09-17 09:18] LABS: Amphetamine Screen Urine Not Detected (Not Detect); Barbiturates, Urine Not Detected (Not Detect); Benzodiazepines Screen Urine Not Detected (Not Detect); Cannabinoid Screen Urine Not Detected (Not Detect); Cocaine Screen Urine POSITIVE (Not Detect); Fentanyl, urine POSITIVE (Not Detect); Opiate Screen Urine POSITIVE (Not Detect); Phencyclidine Screen Urine Not Detected (Not Detect)
--- NOTE | 2022-09-17 09:34 | MHC.RECOVRN ---
Met with pt in ED17 to discuss substance use and desire for ATS. Pt reports using heroin, IV, 1-2 bundles daily as well as cocaine, IV, sometimes. Pt reports having been in recovery 45 days with recent recurrence. Pt is intersted in [place] ATS and continuing on to [facility]. Referral will be placed.
[2022-09-17 10:37] VITALS: BP 94/52; PULSE 71; RESP 14; TEMP 36.5; O2SAT 97
--- NOTE | 2022-09-17 12:04 | MHC.RECOVRN ---
Pt dc to [facility], transported via [employer].
== END 2022-09-17 11:53 ==
PROVIDERS: Physician Assistant; Emergency Provider Internal Medicine
DX: L02.419 Cutaneous abscess of limb, unspecified (principal); F11.19 Opioid abuse with unspecified opioid-induced disorder; F14.19 Cocaine abuse with unspecified cocaine-induced disorder; R21 Rash and other nonspecific skin eruption; Z20.822 Contact with and (suspected) exposure to COVID-19; Z20.828 Contact with and (suspected) exposure to other viral communicable diseases; Z79.899 Other long term (current) drug therapy
CPT/HCPCS: 80307; 81025; 87635; 99284

== ENCOUNTER 2022-09-26 12:55 | Emergency (ER) | payer OTHER, SELFPAY ==
--- NOTE | 2022-09-26 13:11 | ED.ALCOHOL ---
HPI - Alcohol General Chief Complaint: ETOH/Substance Use Stated Complaint: N/V d/t withdrawals per EMS Time Seen by Provider: 09/26/22 13:04 Source: patient and family Mode of arrival: ambulatory Limitations: no limitations History of Present Illness HPI narrative: 32-year-old female history of polysubstance abuse presents emergency department after feeling withdrawals after not taking methadone for the past 4 days. She states she was unable to get to facility but has no reason that she was not able to make it just that she did not go. She denies fevers or falls she denies any head injury she states she does have associated nausea and vomiting feels like she is going withdrawals but she denies drinking alcohol she does smoke cigarettes. complaint: desires rehab and medical clearance for detox facility Related Data Previous Rx's Medication Instructions Recorded doxycycline hyclate 100 mg tablet 100 mg PO BID #20 tabs 09/17/22 Allergies Allergy/AdvReac Type Severity Reaction Status Date / Time Penicillins [PENICILLINS] Allergy Severe ANAPHYLAXIS Verified 06/16/22 20:10 soap [SOAP] Allergy Intermediate ITCHING Verified 06/16/22 20:10 aspirin [ASA] Allergy Unknown ANAPHYLAXIS Verified 06/16/22 20:10 cat dander [cats] Allergy Unknown moderately Verified 09/25/22 12:19 severe latex [LATEX] Allergy Unknown ANAPHYLAXIS Verified 06/16/22 20:10 shellfish derived Allergy Unknown Unknown Verified 09/25/22 12:19 tramadol [TRAMADOL] Allergy Unknown HIVES, Rash Verified 09/25/22 12:19 Review of Systems Review of Systems: Review of systems: General: Patient denies any fever chills recent illness or falls Musculoskeletal: Denies back pain or body aches or other injuries HEENT: denies headache, runny nose, ear pain Respiratory: denies shortness of breath, cough Cardiovascular: no chest pain or palpitations : denies dysuria, frequency Abdomen: nausea vomiting denies abdominal pain Extremities: no swelling, no pain Skin: no diaphoresis Yes all other systems are reviewed and are negative PMFSH Past Medical History Medical History Substance abuse Social History Social History Alcohol intake: unknown Patient Tobacco Use Status: Tobacco use Unknown Substance Use Type: Heroin Advance Directives: No Advance Directives Information Provided: No Physical Exam ED Vital Signs: Vital Signs - 24 hr 09/26/22 13:18 Temperature 97.5 F Pulse Rate 87 Respiratory Rate 14 Blood Pressure 99/55 L Pulse Oximetry 96 Oxygen Delivery Method Room Air BMI result Body Mass Index 17.2 General: Well-appearing well-nourished in no signs of distress HEENT: Normocephalic atraumatic healing old scabbed to left temporal area Neck: No signs of JVD, no masses no tenderness or lymphadenopathy Cardiovascular: Regular rate and rhythm Respiratory: Clear to auscultation bilaterally Abdomen: Soft nontender no masses Extremities: Normal pedal pulses no signs of edema Skin: Dry warm no rashes Back: No tenderness full ROM Medical Decision Making Medical Decision Making MDM Narrative: Alcohol withdrawal. 32-year-old here with signs of heroin and methadone withdrawal patient is unable to tell me why she stopped taking her methadone. I will check labs have the patient evaluated by care team. Patient is no overt signs of withdrawal pending care team evaluation. Labs and vitals are all normal. Seen by care team they are calling for referrals per [facility] policy the patient waits in the ER for placement. I have all her instructions in for discharge. Differential Diagnosis Differential Diagnoses: The differential diagnosis associated with the presentation includes Likely heroin versus methadone withdrawal concern for liver disease lab abnormalities dehydration Admission/Observation Consideration of admission/observation: Escalation of care including admission/observation considered Lab Data [facility] Lab Attestation statement: I reviewed the patient's lab results. 09/26/22 13:27 09/26/22 13:27 Labs: Lab Results 09/26/22 09/26/22 Range/Units 13:27 13:27 WBC 7.8 (4.8-10.8) X10*3/uL RBC 5.14 D (4.20-5.50) X10*6/uL Hgb 12.3 D (12.0-16.0) g/dl Hct 38.6 D (37.0-47.0) % MCV 75.1 L (80.0-98.0) fL MCH 23.9 L (27.0-33.0) pg MCHC 31.9 (31.0-35.0) g/dl RDW 15.9 (11.0-16.0) % Plt Count 450 H (160-400) X10*3/uL MPV 10.0 (9.4-12.3) fL Immature Gran % (Auto) 0.5 H (0.0-0.4) % Neut % (Auto) 78.2 H (45-73) % Lymph % (Auto) 16.7 L (20-40) % [place] % (Auto) 4.2 (2-11) % Eos % (Auto) 0.0 (0-4) % Baso % (Auto) 0.4 (0-2) % Lymph # (Auto) 1.3 (1.2-4.9) X10*3/uL [place] # (Auto) 0.3 (0.1-1.2) X10*3/uL Eos # (Auto) 0.0 (0.0-0.4) X10*3/uL Baso # (Auto) 0.0 (0.0-0.2) X10*3/uL Abs Immat Gran (auto) 0.04 H (0.00-0.03) X10*3/uL Absolute Neuts (auto) 6.1 (2.0-8.3) x10*3/uL Absolute Nucleated RBC 0.000 (0.0-0.012) X10*3/uL Nucleated RBC % (auto) 0.0 (0.0-0.2) /100WBC Sodium 139 (135-145) mmol/L Potassium 4.0 (3.3-5.1) mmol/L Chloride 105 (96-108) mmol/L Carbon Dioxide 23 (22-29) mmol/L Anion Gap 15 (12-20) BUN 14 (9-16) mg/dL Creatinine 0.78 (0.5-1.4) mg/dL Estim Creat Clear Calc 73.4 Estimated GFR > 60 Random Glucose 146 H (60-115) mg/dL Calcium 9.7 D (8.4-10.2) mg/dL Total Bilirubin 0.5 (0.0-1.0) mg/dL Direct Bilirubin < 0.2 (0.0-0.5) mg/dL AST 13 (5-31) U/L ALT 9 (0-31) U/L Alkaline Phosphatase 99 (39-117) U/L Total Protein 8.2 H (6.5-8.0) g/dL Albumin 4.1 (3.5-5.0) g/dL Lipase 29 (8-78) U/L Ethyl Alcohol < 10 mg/dL External Record Review External record reviewed: Inpatient record, Office record and Outpatient record Medications Administered Discontinued Medications Generic Name Dose Route Start Last Admin Trade Name Freq PRN Reason Stop Dose Admin Sodium Chloride 1,000 mls @ 999 mls/hr 09/26/22 13:15 09/26/22 14:42 Ns IV 09/26/22 14:15 999 mls/hr .Q1H1M LASHA Administration Lorazepam 2 mg 09/26/22 13:06 09/26/22 14:42 Lorazepam 2 Mg/Ml Vial IVPUSH 09/26/22 13:07 2 mg ONCE ONE Administration Discharge Plan Discharge Clinical Impression: Opiate withdrawal Patient Disposition: Home, Self-Care Instructions: Opioid Withdrawal (ED), Narcotic Use Disorder (ED) Additional Instructions: Please call to get treatment. We do not do inpatient treatment here. Prescriptions: No Action doxycycline hyclate 100 mg tablet 100 mg PO BID Qty: 20 0RF
[2022-09-26 13:18] VITALS: BP 110/60; BP 99/55; PULSE 75; PULSE 87; RESP 14; TEMP 36.4; O2SAT 96; BMI 17.2
[2022-09-26 13:30] LABS: MANUAL DIFF FLAG NO
[2022-09-26 13:33] LABS: Basophils Percent Auto 0.4 % (0-2); Hematocrit 38.6 % (37.0-47.0); Hemoglobin 12.3 g/dl (12.0-16.0); Imm Gran Abs Auto 0.04 X10*3/uL (0.00-0.03); Imm Gran Pct Auto 0.5 % (0.0-0.4); Lymphocytes Absolute Auto 1.3 X10*3/uL (1.2-4.9); Lymphocytes Percent Auto 16.7 % (20-40); Mean Corpuscular HGB Conc 31.9 g/dl (31.0-35.0); Mean Corpuscular Hemoglobin 23.9 pg (27.0-33.0); Mean Corpuscular Volume 75.1 fL (80.0-98.0); Monocytes Absolute Auto 0.3 X10*3/uL (0.1-1.2); Monocytes Percent Auto 4.2 % (2-11); Neutrophils Absolute Auto 6.1 x10*3/uL (2.0-8.3); Neutrophils Percent Auto 78.2 % (45-73); Platelet Count 450 X10*3/uL (160-400); Red Blood Count 5.14 X10*6/uL (4.20-5.50); Red Cell Distribution Width 15.9 % (11.0-16.0); White Blood Count 7.8 X10*3/uL (4.8-10.8)
[2022-09-26] MEDS: LORazepam 2 MG/ML VIAL IVPUSH (14:42)
[2022-09-26] MEDS: 0.9 % Sodium Chloride 1,000 ML 999 ML IV (14:42)
--- NOTE | 2022-09-26 14:45 | MHC.RECOVRN ---
Met with pt in to discuss substance use and desire for treatment. Pt reports recently being at [facility], was administratively discharged due to the belief pt had used substances while on the unit. Pt states I really didn't have anything. It was the meds they were giving me. Pt had been discharged approximately one week ago. Pt reports using heroin, approx 4 bundles daily after dc. Reports last use a couple days ago. Pt reports being on methadone, 105 mg, through [facility], reports last dose was approx 3 days ago. Pt appears mildly diaphoretic, does not appear restless, is not yawning, no rhinorrhea, calm. Pt is interested in [facility] and reports [facility] will reaccept her for admission. Referral sent to [facility] Central Intake.
[2022-09-26 14:50] LABS: Alanine Aminotransferase 9 U/L (0-31); Albumin Level 4.1 g/dL (3.5-5.0); Alkaline Phosphatase 99 U/L (39-117); Anion Gap 15 (12-20); Aspartate Amino Transferase 13 U/L (5-31); Bilirubin Direct < 0.2 mg/dL (0.0-0.5); Bilirubin Total 0.5 mg/dL (0.0-1.0); Blood Urea Nitrogen 14 mg/dL (9-16); Calcium 9.7 mg/dL (8.4-10.2); Carbon Dioxide 23 mmol/L (22-29); Chloride 105 mmol/L (96-108); Creatinine Clr Calc Pharmacy 73.4; Estimated Glomerular Filt Rate > 60; Ethanol < 10 mg/dL; Glucose Random 146 mg/dL (60-115); Lipase 29 U/L (8-78); Sodium 139 mmol/L (135-145); Total Protein 8.2 g/dL (6.5-8.0)
--- NOTE | 2022-09-26 15:53 | MHC.RECOVRN ---
T/w was notified by [facility] that pt is unable to return to ATS. Pt is on administrative review until 09/20/23 due to possessing and distributing substances on the unit.
--- NOTE | 2022-09-26 16:25 | PC.NURSE ---
Patient sleeping in looks like she ate has gingerale and snacks at bedside.
--- NOTE | 2022-09-26 20:15 | MHC.RECOVSUP ---
PT. I 32YR OLD FEMALE WHO CAME TO THE ED FOR ETHOS AND DETOX. I WAS ASKED TO SEE PT BY THE CARE TEAM. CARE TEAM EXPLAINED THAT THEY SENT OVER HER INFO TO [facility] . I CALLED N AND THEY CONFIRMED THAT THEY HAVE THE PT INFO. THEY ARE JUST WAITING FOR THE NURSE TO LOOK OVER INFORMATION. I WAS ABLE TO EXPLAINED TO THE NURSE THAT IS ATTENDING TO PT HERE WHAT I WAS TOLD BY Randy. AT THIS TIME WE ARE WAITING FOR [facility] TO GIVE US A CALL BACK.
[2022-09-26 20:49] VITALS: BP 103/60; PULSE 76; RESP 18; TEMP 36.8; O2SAT 99
[2022-09-26] MEDS: LORazepam 1 MG TABLET 2 MG PO (21:22)
[2022-09-27 00:32] VITALS: BP 100/54; PULSE 75; RESP 12; TEMP 35.8; O2SAT 100
--- NOTE | 2022-09-27 06:06 | PC.NURSE ---
Pt is requesting medication for withdrawal symptoms. Pt reports shakiness, headache, anxiety, auditory and visual sensitivity, and appears fidgety and mildly diaphoretic with a runny nose and watery eyes. I spoke with Dr Corey who ordered methadone. Pt stated she using heroin while on methadone and hasn't used either in 3 days. Pt sees [facility] on [address] in [place] for her methadone, stating her usual dose is 105 mg. Recovery and care team have worked with the pt trying to find a detox placement.
[2022-09-27 06:33] VITALS: BP 104/56; PULSE 70; RESP 12; TEMP 36; O2SAT 99
[2022-09-27] MEDS: methADONE HCl 20 MG/2 ML ORAL.CONC PO (06:34)
--- NOTE | 2022-09-27 08:30 | MHC.RECOVRN ---
Spoke with [facility], pts last dose there was 09/16/22, 105 mg methadone at 1120. Spoke with KEON Saldivar, at [facility], pts last dose was 09/20/22, 105 mg. RN aware.
[2022-09-27 09:25] VITALS: BP 99/66; PULSE 72; RESP 18; TEMP 36.2; O2SAT 99
[2022-09-27] MEDS: methADONE HCl 20 MG/2 ML ORAL.CONC 40 MG PO (09:41)
[2022-09-27] MEDS: Doxycycline Monohydrate 100 MG CAPSULE PO (09:41)
[2022-09-27] MEDS: Lidocaine HCl 1 % MPF 5 ML VIAL SUBCUT (10:01)
--- NOTE | 2022-09-27 10:55 | MHC.RECOVRN ---
[facility] had bed availability yesterday, have been unable to reach intake since then. Pt agreeable to present as walk in to see if bed is still available. Pt transported via [employer]. 1045-No bed availability at . Pt transported to [facility] via [facility].
== END 2022-09-27 10:02 | disposition home or self-care (01) ==
PROVIDERS: Emergency Provider Student in an Organized Health Care Education/Training Program
DX: F11.23 Opioid dependence with withdrawal (principal); L02.413 Cutaneous abscess of right upper limb; F19.10 Other psychoactive substance abuse, uncomplicated; F17.210 Nicotine dependence, cigarettes, uncomplicated
CPT/HCPCS: 10060; 36415; 80048; 80076; 82077; 83690; 85025; 96361; 96374; 99284; 99285; J2060

== ENCOUNTER 2022-10-27 22:03 | Emergency (ER) | payer OTHER, SELFPAY ==
--- NOTE | ~2022-10-27 | XR_ITS ---
EXAMINATION: PORTABLE CHEST 1 VIEW CLINICAL INFORMATION: difficulty swallowing . COMPARISON: No recent pertinent prior studies are available for comparison. TECHNIQUE: Portable frontal view of the chest was obtained. FINDINGS: The lungs are well expanded. No focal infiltrate, effusion, edema, or pneumothorax. Cardiac and mediastinal silhouettes are within normal limits for technique. No acute bony abnormality seen. XR/XR chest 1V IMPRESSION: No evidence of acute disease.
[2022-10-27 22:14] VITALS: BP 118/72; BP 130/82; PULSE 101; PULSE 94; RESP 18; TEMP 36.9; O2SAT 98; BMI 16.6
--- NOTE | 2022-10-27 22:29 | ED.GENADULT ---
HPI - General Adult General Chief complaint: General Medical Stated complaint: allergic reaction Time Seen by Provider: 10/27/22 22:28 Source: patient and EMS Mode of arrival: EMS Limitations: no limitations History of Present Illness HPI narrative: This is a 32-year-old female history of polysubstance, presenting to the emergency department for evaluation of feeling that her throat was closing times an hour, patient tells me this started after she drink pineapple juice and ate chocolate. She tells me she is not allergic to any of those foods that she knows of. She tells me she feels like she is having a hard time swallowing. This is never happened to her before. Patient denies fevers, chills, chest pain, shortness of breath, nausea, vomiting, abdominal pain, headache, vision changes, ingestion of foreign bodies. Related Data Previous Rx's Medication Instructions Recorded doxycycline hyclate 100 mg tablet 100 mg PO BID #20 tabs 09/17/22 doxycycline monohydrate 100 mg 100 mg PO BID 10 days #20 tabs 09/27/22 tablet diphenhydramine HCl 25 mg capsule 25 mg PO TID PRN allergic reaction 10/27/22 (Benadryl) #20 caps epinephrine 0.3 mg/0.3 mL 0.3 mg (0.3 mL) IM Q4H PRN 10/27/22 injection, auto-injector (EpiPen anaphylaxis #2 ea 2-Isaak) Allergies Allergy/AdvReac Type Severity Reaction Status Date / Time Penicillins [PENICILLINS] Allergy Severe ANAPHYLAXIS Verified 10/27/22 22:14 soap [SOAP] Allergy Intermediate ITCHING Verified 10/27/22 22:14 aspirin [ASA] Allergy Unknown ANAPHYLAXIS Verified 10/27/22 22:14 cat dander [cats] Allergy Unknown moderately Verified 10/27/22 22:14 severe latex [LATEX] Allergy Unknown ANAPHYLAXIS Verified 10/27/22 22:14 shellfish derived Allergy Unknown Unknown Verified 10/27/22 22:14 tramadol [TRAMADOL] Allergy Unknown HIVES, Rash Verified 10/27/22 22:14 Review of Systems Review of Systems: Constitutional : No Weight loss, No Fever, No Chills, No Fatigue, No Malaise ENT/Mouth : No sore throat, No Rhinorrhea, + difficulty swallowing Eyes: No Eye Pain, No Swelling, No Redness Cardiovascular : No Chest Pain, No SOB, No Dyspnea on Exertion, No Orthopnea, No Edema, No Palpitations Respiratory : No Cough, No Sputum, No Wheezing Gastrointestinal : No Nausea, No Vomiting, No Diarrhea, No Constipation, No abdominal Pain, No Hematochezia, No Melena Genitourinary : No Dysuria, No Urinary Frequency, No Hematuria, Musculoskeletal : No joint pain, No Myalgias, No Joint Swelling Skin : No Skin Lesions, No rash Neuro : No Weakness, No Numbness, No Dizziness, No Headache Psych : No Anxiety/Panic, No Depression All other systems reviewed and are negative Yes all other systems are reviewed and are negative [facility] Past Medical History Attestation statement: The following information was validated with the patient. Source: old records reviewed and nursing notes reviewed Medical History Substance abuse Social History Social History Alcohol intake: never Patient Tobacco Use Status: Tobacco use Unknown Smoked in Last 30 Days: No Use of substances other than those prescribed or required for medical reasons: Yes Substance Use Type: Heroin Advance Directives: No Advance Directives Information Provided: Yes Physical Exam ED Vital Signs: Vital Signs - 24 hr 10/27/22 22:14 Temperature 98.4 F Pulse Rate 94 Respiratory Rate 18 Blood Pressure 118/72 Pulse Oximetry 98 Oxygen Delivery Method Room Air BMI result Body Mass Index 16.6 vss Appearance: Alert.? Oriented X3.? No acute distress.? Patient comfortable appearing, speaking in full sentences controlling secretions well. Head: Normocephalic, atraumatic, no step-offs or deformities Eyes: Pupils equal, round and reactive to light.? ENT: Pharynx normal.? Uvula midline. No edema to tonsils, uvula, hard or soft palate, lips, tongue. Neck: Normal inspection.? Neck supple.? CVS: Normal heart rate and rhythm.? Pulses normal.? Respiratory: No respiratory distress.? Breath sounds normal.? Abdomen: Soft and nontender.? Skin: Skin warm and dry.? Normal skin color.? Normal skin turgor.? Extremities: No lower extremity edema.? No calf ttp. 5/5 strength to bilateral upper and lower extremities Neuro: Oriented X 3.? No motor deficit.? No sensory deficit. CN 2-12 intact Course Reevaluation(s) Reevaluation #1: Patient states she is feeling much better. Vital signs stable speaking in full sentences. No airway edema. Reports significant improvement after medications. Educated her on proper use of EpiPen and when to use it. Will discharge home on EpiPen, Benadryl advised her to follow-up with PCP and allergy doctor. Information outlined on patient's discharge. At time of discharge patient feeling better tolerating p.o. speaking full sentences controlling secretions well. Educated patient on diagnosis and treatment plan, answered all question, patient verbalizes understanding. At this time patient will be discharged home, advised to return with new or worsening symptoms. Educated on worrisome signs and symptoms and when to return. At this time I feel comfortable discharge home. Time: 23:26 Medications Administered Discontinued Medications Generic Name Dose Route Start Last Admin Trade Name Freq PRN Reason Stop Dose Admin Dexamethasone Sodium Phosphate 10 mg 10/27/22 22:32 10/27/22 22:43 Dexamethasone Sod Phosphate 10 Mg/Ml Vial IVPUSH 10/27/22 22:33 10 mg ONCE ONE Administration Diphenhydramine HCl 50 mg 10/27/22 22:28 10/27/22 22:43 Diphenhydramine Hcl 25 Mg Capsule PO 10/27/22 22:29 50 mg ONCE ONE Administration Lorazepam 1 mg 10/27/22 22:32 10/27/22 22:43 Lorazepam 1 Mg Tablet PO 10/27/22 22:33 1 mg ONCE ONE Administration Medical Decision Making Medical Decision Making [facility] Narrative: [id number] This is a 32-year-old female presenting with difficulty swallowing, patient thinks she is having an allergic reaction. Physical exam benign. Concerns for possible allergic reaction. Unlikely anaphylactic reaction. No signs of airway compromise. Other differentials include anxiety. Will give p.o. Decadron, Benadryl, lorazepam is patient is very anxious. Differential Diagnosis Differential Diagnoses: The differential diagnosis associated with the presentation includes Concerns for possible allergic reaction. Unlikely anaphylactic reaction. No signs of airway compromise. Other differentials include anxiety. Admission/Observation Consideration of admission/observation: Escalation of care including admission/observation considered Unlikely Independent Interpretation I performed an independent interpretation of an: Plain X-Ray Radiology Impression Discussion of test interpretation with radiology: I have reviewed the radiologist's reading. Core Measures AMI core measures followed: Yes Measure exclusions: not indicated Critical Care Time Critical Care Time Critical Care Time: No Discharge Plan Discharge Clinical Impression: Allergic reaction Patient Disposition: Home, Self-Care Instructions: General Allergic Reaction (ED), Allergy Testing (ED) Additional Instructions: Take your medications as prescribed. If you were prescribed antibiotics today, it is important that you take your medication to their entirety, do not skip any doses, do not finish them early. Follow-up with your primary care provider this week. You should get allergy tested in see an independent living specialist. Return to the emergency department with new or worsening symptoms. Such as fevers, chills, chest pain, shortness of breath, nausea, vomiting, dizziness, headache, vision changes, lethargy, difficulty speaking or swallowing I have sent a EpiPen to her pharmacy, use this if you feel like you cannot swallow, like her airway is closing. Please inject into year thigh, as explained to you in the department. If he needs clarification feel free to also ask the pharmacist for precise instructions. If use an EpiPen it is essential that you seek medical attention immediately after, call 911. In case of emergency call 911 AIANE: [facility] [address] [facility] [address] Prescriptions: New diphenhydramine HCl [Benadryl] 25 mg capsule 25 mg PO TID PRN (Reason: allergic reaction) Qty: 20 0RF epinephrine [EpiPen 2-Isaak] 0.3 mg/0.3 mL auto-injector 0.3 mg IM Q4H PRN (Reason: anaphylaxis) Qty: 2 0RF No Action doxycycline hyclate 100 mg tablet 100 mg PO BID Qty: 20 0RF doxycycline monohydrate 100 mg tablet 100 mg PO BID 10 Days Qty: 20 0RF Referrals: Physician,Unknown J [Primary Care Provider] - 2 days
[2022-10-27] MEDS: diphenhydrAMINE HCL 25 MG CAPSULE 50 MG PO (22:43)
[2022-10-27] MEDS: dexAMETHasone sod phosphate 10 MG/ML VIAL IVPUSH (22:43)
[2022-10-27] MEDS: LORazepam 1 MG TABLET PO (22:43)
--- NOTE | 2022-10-27 23:14 | PC.NURSE ---
pt aox4, c/o thrt pain and 'feeling warm'
--- NOTE | 2022-10-28 01:03 | PC.NURSE ---
This RN at bedside with discharge paperwork. Pt requesting to speak to the Care Team for detox for heroin. PA aware.
--- NOTE | 2022-10-28 02:11 | PC.NURSE ---
Cody from the Care Team at bedside providing patient with requested detox information.
--- NOTE | 2022-10-28 02:16 | PC.NURSE ---
Pt stated she doesn't feel like she got anywhere with the care team. She also stated she has been stalked and said, What do I need to do? Kill myself? Would that make it better? Charge nurse informed of statements pt made.
[2022-10-28 03:06] LABS: Appearance Urine Clear; Color Urine Yellow; Glucose Urine UA Negative (Negative); Leukocyte Esterase Urine Moderate (2+) (Negative); Nitrite Urine Negative (Negative); PH 5.5 (5.0-9.0); Specific Gravity - Urine 1.015 (1.005-1.025); UMIC TRIGGER UA YES; Urine Blood Trace (Negative); Urine Ketones 15 mg/dL (Negative); Urine Protein Negative (Neg-Trace)
[2022-10-28 03:08] LABS: UPreg QC Valid YES; Urine Pregnancy NEGATIVE (NEGATIVE)
[2022-10-28 03:16] LABS: Amphetamine Screen Urine Not Detected (Not Detect); Barbiturates, Urine Not Detected (Not Detect); Benzodiazepines Screen Urine Not Detected (Not Detect); Cannabinoid Screen Urine Not Detected (Not Detect); Fentanyl, urine POSITIVE (Not Detect); Phencyclidine Screen Urine Not Detected (Not Detect)
--- NOTE | 2022-10-28 03:18 | MHC.CARE ---
Pt was referred for a consult for Detox services. T/W spoke to Lauren about her options for Detox services. She was given a list of the local Detoxes and encouraged to self present by phone. T/W told her to come back tomorrow if she is having difficulty.and speak with the recovery coaches .
[2022-10-28 03:20] LABS: Bacteria Urine Trace (None Seen); Hyaline Casts Urine 0-2 /LPF (0-2); RBC Urine 0-2 /HPF (0-2)
[2022-10-28 03:24] LABS: COVID-19 Test Negative (Negative); IDNOW Serial# 6674DD1D
[2022-10-28 03:54] LABS: Cocaine Screen Urine POSITIVE (Not Detect); Opiate Screen Urine POSITIVE (Not Detect)
--- NOTE | 2022-10-28 05:53 | PC.NURSE ---
Patient slept through the night, no distress observed/reported, patient was cleared for discharge from main ED earlier but made suicidal statement at the time of discharge, care consult ordered for suicidality/pending evaluation, med rec completed/no home medication, VSS, behavior non concerning, will continue to monitor.
--- NOTE | 2022-10-28 07:21 | PC.NURSE ---
patient appears to remain asleep at present respirations are even and unlabored patient appears in no distress.
--- NOTE | 2022-10-28 09:48 | PC.NURSE ---
nearby patient was approached with medication and this client states im on methadone luis antonio will pursue letter
--- NOTE | 2022-10-28 10:21 | MHC.CARE ---
CARE team met with Pt and ED physician, Pt denies any SI/HI and reports she needs her methadone and she has last dose letter with her today in ED. She reports she is seeking rehab/detox treatment. According to pt record she initially presented in ED due to allergic reaction, she requested detox services and was seen by CARE team and provided detox resources. Pt was then being discharged from ED and became frustrated stating what do I have to do kill myself which she reports she stated as she felt ED staff were not being supportive. Dr. Anand in agreement with referral to recovery team for addiction services and treatment. Pt does not require CARE team assessment at this time as she denies any SI/HI.
--- NOTE | 2022-10-28 11:12 | HE.PHANOTE ---
RE METHADONE VERIFICATION RECEIVED, LAST DOSE WAS 115 MG ON 10/26 FROM [facility]
--- NOTE | 2022-10-28 11:14 | MHC.RECOVRN ---
Met with pt in [facility] to follow up regarding desire for ATS/ Pt reports having been discharged from [facility] on 10/26 and returned to the area. Pt has been using 4 bundles heroin, IV, as well as 1.5 pints Fireball. Pt is interested in returning to treatment, specifically ATS at [facility]. T/w will place referral.
[2022-10-28] MEDS: methADONE HCl 20 MG/2 ML ORAL.CONC 115 MG PO (11:25)
--- NOTE | 2022-10-28 12:54 | MHC.RECOVRN ---
Referral being reviewed by nursing at [facility].
[2022-10-28 14:00] VITALS: BP 104/57; PULSE 96; RESP 16; TEMP 37.7; O2SAT 96
--- NOTE | 2022-10-28 16:15 | MHC.RECOVRN ---
Pt declined from [facility] due to recent admission. Pt inquired about [facility], no bed availability. Pt not allowed at [facility] x 1 year. Bedsearch otherwise exhausted. Discussed with CARE Team, plan to have CARE Team meet with pt to discuss other options as pt reports hx psych hospitalization and possibility of needing that level of care. Bobbi Bonilla, PACKER INSPECTOR, aware.
[2022-10-28] MEDS: LORazepam 1 MG TABLET PO (16:56)
== END 2022-10-28 19:30 | disposition home or self-care (01) ==
PROVIDERS: Emergency Provider Internal Medicine
DX: L50.0 Allergic urticaria (principal); R13.10 Dysphagia, unspecified; Z20.822 Contact with and (suspected) exposure to COVID-19; Z20.828 Contact with and (suspected) exposure to other viral communicable diseases; Z79.899 Other long term (current) drug therapy
CPT/HCPCS: 71045; 80307; 81001; 81003; 81025; 87635; 99284; J1100; S9485

== ENCOUNTER 2022-11-17 14:42 | Emergency (ER) | payer OTHER, SELFPAY ==
--- NOTE | ~2022-11-17 | US_ITS ---
EXAMINATION: US VENOUS WITH DOPPLER UPPER EXTREMITY, right. CLINICAL INFORMATION: Edema and swelling. Pain. Post IV puncture. COMPARISON: None available. TECHNIQUE: Ultrasound of the upper extremity is performed using compression sonography and color and pulse Doppler flow with assessment of augmentation of flow. There is also imaging and Doppler assessment of the jugular and subclavian veins. Spectral analysis with color-flow imaging is performed. FINDINGS: Respiratory variation, normal compression, and augmented flow are noted throughout the upper extremity including the axillary, brachial, cubital, and radial and ulnar veins. There is normal flow in the internal jugular and subclavian veins. There is no visible deep or superficial thrombophlebitis. The superficial vein, cephalic vein, in the upper arm is not visualized. This is reconstituted at the antecubital fossa. The cephalic vein in the forearm demonstrates occlusive thrombus. There is surrounding edema and fluid at the forearm around the thrombus of the cephalic vein. There is a linear needle also at the cephalic vein at the forearm measuring about 1 cm in length. This lies about 0.5 cm from the skin line. US/US venous duplex UE RT IMPRESSION: 1. No DVT demonstrated in the right upper extremity. 2. Superficial thrombophlebitis involving cephalic vein at the forearm. There is a needle within this vein. There is surrounding edema in the soft tissues around the site of thrombus, cellulitis. This result was discussed with Dr Ridley on 11/17/2022, 4:53 PM and it was ascertained that the content and urgency of the report was understood at the time of direct communication.
[2022-11-17 14:56] VITALS: BP 100/57; BP 112/70; PULSE 74; RESP 18; TEMP 37.1; O2SAT 96; O2SAT 97
--- NOTE | 2022-11-17 14:59 | ED_ITS ---
HPI - Skin/Abscess/Foreign Bdy General Chief complaint: ETOH/Substance Use <LAINE Espana - Last Filed: 11/17/22 15:03> Stated complaint: r arm pain <LAINE Espana - Last Filed: 11/17/22 15:03> Time Seen by Provider: 11/17/22 17:57 <LAINE Espana - Last Filed: 11/17/22 15:03> Source: patient <Rin Corey MD - Last Filed: 11/17/22 21:11> Mode of arrival: EMS <Rin Corey MD - Last Filed: 11/17/22 21:11> History of Present Illness HPI narrative: 32-year-old female with history of IVDA, last use yesterday at 16:00 presents with right arm pain and associated swelling with redness. Patient states that she is detoxing. She also endorses that her last use of methadone was approximately 1 week ago. <Rin Corey MD - Last Filed: 11/17/22 21:11> Related Data Home medications: Home Medications Medication Instructions Recorded Confirmed methadone 10 mg tablet 115 mg PO DAILY 10/28/22 10/28/22 Previous Rx's Medication Instructions Recorded diphenhydramine HCl 25 mg capsule 25 mg PO TID PRN allergic reaction 10/27/22 (Benadryl) #20 caps epinephrine 0.3 mg/0.3 mL 0.3 mg (0.3 mL) IM Q4H PRN 10/27/22 injection, auto-injector (EpiPen anaphylaxis #2 ea 2-Isaak) cefdinir 300 mg capsule 300 mg PO BID 7 days #14 caps 11/17/22 doxycycline monohydrate 100 mg 100 mg PO BID 7 days #14 caps 11/17/22 capsule <LAINE Espana - Last Filed: 11/17/22 15:03> Allergies/Adverse reactions: Allergies Allergy/AdvReac Type Severity Reaction Status Date / Time Penicillins [PENICILLINS] Allergy Severe ANAPHYLAXIS Verified 10/27/22 22:14 soap [SOAP] Allergy Intermediate ITCHING Verified 10/27/22 22:14 aspirin [ASA] Allergy Unknown ANAPHYLAXIS Verified 10/27/22 22:14 cat dander [cats] Allergy Unknown moderately Verified 10/27/22 22:14 severe latex [LATEX] Allergy Unknown ANAPHYLAXIS Verified 10/27/22 22:14 shellfish derived Allergy Unknown Unknown Verified 10/27/22 22:14 tramadol [TRAMADOL] Allergy Unknown HIVES, Rash Verified 10/27/22 22:14 <LAINE Espana - Last Filed: 11/17/22 15:03> Review of Systems Review of Systems: Pertinent positives and negatives as stated in HPI <Rin Corey MD - Last Filed: 11/17/22 21:11> PMFSH Past Medical History Source: nursing notes reviewed <Rin Corey MD - Last Filed: 11/17/22 21:11> Medical History: Medical History Substance abuse <LAINE Espana - Last Filed: 11/17/22 15:03> Social History Social History: Social History Alcohol intake: never Patient Tobacco Use Status: Tobacco use Unknown Smoked in Last 30 Days: Yes Use of substances other than those prescribed or required for medical reasons: Yes Substance Use Type: Heroin and IV Drugs Substance Use Frequency: Daily Advance Directives: No Advance Directives Information Provided: Yes <LAINE Espana - Last Filed: 11/17/22 15:03> Physical Exam Vital Signs: Vital Signs: Last Vital Signs Temp 98.7 F 11/17/22 14:56 Pulse 62 11/17/22 18:16 Resp 18 11/17/22 18:16 BP 104/55 L 11/17/22 18:16 Pulse Ox 98 11/17/22 18:16 O2 Del Method Room Air 11/17/22 18:16 BMI result Body Mass Index 20.0 <LAINE Espana - Last Filed: 11/17/22 15:03> Vital Signs: Last Vital Signs Temp 98.7 F 11/17/22 14:56 Pulse 62 11/17/22 18:16 Resp 18 11/17/22 18:16 BP 104/55 L 11/17/22 18:16 Pulse Ox 98 11/17/22 18:16 O2 Del Method Room Air 11/17/22 18:16 BMI result Body Mass Index 20.0 VITAL SIGNS: Reviewed. GENERAL: Well developed, well nourished, in no acute distress. HEAD: Normocephalic/atraumatic EYES: PERRLA, EOMI EARS: Ext canals without abnormality NOSE: Nares patent bilateral OROPHARYNX: no oral lesions noted, posterior pharynx clear NECK: Supple, no adenopathy LUNGS: Normal breath sounds. No adventitious sounds or accessory muscle use. SpO2<98> CARDIOVASCULAR: Regular rate and rhythm without noted murmurs ABDOMEN: Soft, non-tender, non-distended with bowel sounds. MUSCULOSKELETAL: No tenderness, deformities, or effusions noted on gross inspection. EXTREMITIES: No cyanosis, clubbing or edema; RIGHT UPPER EXTREMITY: There is a area of erythema and induration as well as swelling noted at the radial side of the forearm without fluctuance SKIN: Inspection of the skin reveals no rashes NEUROLOGIC: Alert and oriented x 3. Strength and sensation to light touch were grossly intact x 4. <Rin Corey MD - Last Filed: 11/17/22 21:11> Course Course Course Narrative: RME- 15PM - 32yoF with a PMHx of IVDU who is presenting to the ER with complaints of possible abscess to right forearm. Reports that she has some redness and swelling along with nausea/vomiting/diarrhea and chills for the past few days worse today. Reports that she last used drugs yesterday. Denies any fevers, SI or HI or any other symptoms complaints or concerns at this time. She reports she is interested in detox. Plan: Labs, blood cultures, ultrasound ordered at this time patient to be seen in the ER for further evaluation treatment. <LAINE Espana - Last Filed: 11/17/22 15:03> Medical Decision Making Medical Decision Making MDM Narrative: 32-year-old female who is requesting her methadone dose. I reviewed all investigations and the ultrasound finding is significant for a needle still within the vein and superficial thrombophlebitis, no evidence of DVT. I reviewed all laboratory investigations and my interpretation is that patient has swelling and redness at the side her of her right forearm secondary to a needle which is within a superficial vein. Patient is up-to-date on her Tdap, she states that she received 1 last year, and patient will be discharged on antibiotics. 2027: I discussed the case with General surgery, who states that patient can be discharged and follow-up in the office at which time arrangements will be made for the removal of the needle. The plan was discussed with the patient at bedside. <Rin Corey MD - Last Filed: 11/17/22 21:11> Differential Diagnosis Please see the discussion above <Rin Corey MD - Last Filed: 11/17/22 21:11> Lab Data Please see the discussion above <Rin Corey MD - Last Filed: 11/17/22 21:11> Result Diagrams: 11/17/22 16:31 <LAINE Espana - Last Filed: 11/17/22 15:03> Labs: Lab Results 11/17/22 11/17/22 11/17/22 Range/Units 16:31 16:31 16:31 WBC (4.8-10.8) X10*3/uL RBC (4.20-5.50) X10*6/uL Hgb (12.0-16.0) g/dl Hct (37.0-47.0) % MCV (80.0-98.0) fL MCH (27.0-33.0) pg MCHC (31.0-35.0) g/dl RDW (11.0-16.0) % Plt Count (160-400) X10*3/uL MPV (9.4-12.3) fL Immature Gran % (Auto) (0.0-0.4) % Neut % (Auto) (45-73) % Lymph % (Auto) (20-40) % [place] % (Auto) (2-11) % Eos % (Auto) (0-4) % Baso % (Auto) (0-2) % Lymph # (Auto) (1.2-4.9) X10*3/uL [place] # (Auto) (0.1-1.2) X10*3/uL Eos # (Auto) (0.0-0.4) X10*3/uL Baso # (Auto) (0.0-0.2) X10*3/uL Abs Immat Gran (auto) (0.00-0.03) X10*3/uL Absolute Neuts (auto) (2.0-8.3) x10*3/uL Absolute Nucleated RBC (0.0-0.012) X10*3/uL Nucleated RBC % (auto) (0.0-0.2) /100WBC ESR 27 H (0-20) MM/HR PT 12.0 (10.0-13.1) SEC INR 1.0 (0.9-1.1) Sodium 140 (135-145) mmol/L Potassium 3.7 (3.3-5.1) mmol/L Chloride 103 (96-108) mmol/L Carbon Dioxide 27 (22-29) mmol/L Anion Gap 14 (12-20) BUN 12 (9-16) mg/dL Creatinine 0.78 (0.5-1.4) mg/dL Estim Creat Clear Calc 88.1 Estimated GFR > 60 Random Glucose 91 (60-115) mg/dL Calcium 9.3 (8.4-10.2) mg/dL Magnesium 2.1 (1.6-2.6) mg/dL Total Bilirubin 0.6 (0.0-1.0) mg/dL AST 17 (5-31) U/L ALT 9 (0-31) U/L Alkaline Phosphatase 85 (39-117) U/L C-Reactive Protein 1.42 H (< or = 0.50) mg/dL Total Protein 7.9 (6.5-8.0) g/dL Albumin 4.1 (3.5-5.0) g/dL Beta HCG, Quant < 2 mIU/mL 11/17/22 11/17/22 Range/Units 18:54 18:54 WBC 7.7 (4.8-10.8) X10*3/uL RBC 4.53 (4.20-5.50) X10*6/uL Hgb 11.3 L (12.0-16.0) g/dl Hct 34.8 L (37.0-47.0) % MCV 76.8 L (80.0-98.0) fL MCH 24.9 L (27.0-33.0) pg MCHC 32.5 (31.0-35.0) g/dl RDW 14.9 (11.0-16.0) % Plt Count 415 H (160-400) X10*3/uL MPV 9.9 (9.4-12.3) fL Immature Gran % (Auto) 0.7 H (0.0-0.4) % Neut % (Auto) 73.4 H (45-73) % Lymph % (Auto) 19.1 L (20-40) % [place] % (Auto) 5.5 (2-11) % Eos % (Auto) 1.2 (0-4) % Baso % (Auto) 0.1 (0-2) % Lymph # (Auto) 1.5 (1.2-4.9) X10*3/uL [place] # (Auto) 0.4 (0.1-1.2) X10*3/uL Eos # (Auto) 0.1 (0.0-0.4) X10*3/uL Baso # (Auto) 0.0 (0.0-0.2) X10*3/uL Abs Immat Gran (auto) 0.05 H (0.00-0.03) X10*3/uL Absolute Neuts (auto) 5.6 (2.0-8.3) x10*3/uL Absolute Nucleated RBC 0.000 (0.0-0.012) X10*3/uL Nucleated RBC % (auto) 0.0 (0.0-0.2) /100WBC ESR (0-20) MM/HR PT 12.1 (10.0-13.1) SEC INR 1.1 (0.9-1.1) Sodium (135-145) mmol/L Potassium (3.3-5.1) mmol/L Chloride (96-108) mmol/L Carbon Dioxide (22-29) mmol/L Anion Gap (12-20) BUN (9-16) mg/dL Creatinine (0.5-1.4) mg/dL Estim Creat Clear Calc Estimated GFR Random Glucose (60-115) mg/dL Calcium (8.4-10.2) mg/dL Magnesium (1.6-2.6) mg/dL Total Bilirubin (0.0-1.0) mg/dL AST (5-31) U/L ALT (0-31) U/L Alkaline Phosphatase (39-117) U/L C-Reactive Protein (< or = 0.50) mg/dL Total Protein (6.5-8.0) g/dL Albumin (3.5-5.0) g/dL Beta HCG, Quant mIU/mL <LAINE Espana - Last Filed: 11/17/22 15:03> Lab Results 11/17/22 11/17/22 11/17/22 Range/Units 16:31 16:31 16:31 WBC (4.8-10.8) X10*3/uL RBC (4.20-5.50) X10*6/uL Hgb (12.0-16.0) g/dl Hct (37.0-47.0) % MCV (80.0-98.0) fL MCH (27.0-33.0) pg MCHC (31.0-35.0) g/dl RDW (11.0-16.0) % Plt Count (160-400) X10*3/uL MPV (9.4-12.3) fL Immature Gran % (Auto) (0.0-0.4) % Neut % (Auto) (45-73) % Lymph % (Auto) (20-40) % [place] % (Auto) (2-11) % Eos % (Auto) (0-4) % Baso % (Auto) (0-2) % Lymph # (Auto) (1.2-4.9) X10*3/uL [place] # (Auto) (0.1-1.2) X10*3/uL Eos # (Auto) (0.0-0.4) X10*3/uL Baso # (Auto) (0.0-0.2) X10*3/uL Abs Immat Gran (auto) (0.00-0.03) X10*3/uL Absolute Neuts (auto) (2.0-8.3) x10*3/uL Absolute Nucleated RBC (0.0-0.012) X10*3/uL Nucleated RBC % (auto) (0.0-0.2) /100WBC ESR 27 H (0-20) MM/HR PT 12.0 (10.0-13.1) SEC INR 1.0 (0.9-1.1) Sodium 140 (135-145) mmol/L Potassium 3.7 (3.3-5.1) mmol/L Chloride 103 (96-108) mmol/L Carbon Dioxide 27 (22-29) mmol/L Anion Gap 14 (12-20) BUN 12 (9-16) mg/dL Creatinine 0.78 (0.5-1.4) mg/dL Estim Creat Clear Calc 88.1 Estimated GFR > 60 Random Glucose 91 (60-115) mg/dL Calcium 9.3 (8.4-10.2) mg/dL Magnesium 2.1 (1.6-2.6) mg/dL Total Bilirubin 0.6 (0.0-1.0) mg/dL AST 17 (5-31) U/L ALT 9 (0-31) U/L Alkaline Phosphatase 85 (39-117) U/L C-Reactive Protein 1.42 H (< or = 0.50) mg/dL Total Protein 7.9 (6.5-8.0) g/dL Albumin 4.1 (3.5-5.0) g/dL Beta HCG, Quant < 2 mIU/mL 11/17/22 11/17/22 Range/Units 18:54 18:54 WBC 7.7 (4.8-10.8) X10*3/uL RBC 4.53 (4.20-5.50) X10*6/uL Hgb 11.3 L (12.0-16.0) g/dl Hct 34.8 L (37.0-47.0) % MCV 76.8 L (80.0-98.0) fL MCH 24.9 L (27.0-33.0) pg MCHC 32.5 (31.0-35.0) g/dl RDW 14.9 (11.0-16.0) % Plt Count 415 H (160-400) X10*3/uL MPV 9.9 (9.4-12.3) fL Immature Gran % (Auto) 0.7 H (0.0-0.4) % Neut % (Auto) 73.4 H (45-73) % Lymph % (Auto) 19.1 L (20-40) % [place] % (Auto) 5.5 (2-11) % Eos % (Auto) 1.2 (0-4) % Baso % (Auto) 0.1 (0-2) % Lymph # (Auto) 1.5 (1.2-4.9) X10*3/uL [place] # (Auto) 0.4 (0.1-1.2) X10*3/uL Eos # (Auto) 0.1 (0.0-0.4) X10*3/uL Baso # (Auto) 0.0 (0.0-0.2) X10*3/uL Abs Immat Gran (auto) 0.05 H (0.00-0.03) X10*3/uL Absolute Neuts (auto) 5.6 (2.0-8.3) x10*3/uL Absolute Nucleated RBC 0.000 (0.0-0.012) X10*3/uL Nucleated RBC % (auto) 0.0 (0.0-0.2) /100WBC ESR (0-20) MM/HR PT 12.1 (10.0-13.1) SEC INR 1.1 (0.9-1.1) Sodium (135-145) mmol/L Potassium (3.3-5.1) mmol/L Chloride (96-108) mmol/L Carbon Dioxide (22-29) mmol/L Anion Gap (12-20) BUN (9-16) mg/dL Creatinine (0.5-1.4) mg/dL Estim Creat Clear Calc Estimated GFR Random Glucose (60-115) mg/dL Calcium (8.4-10.2) mg/dL Magnesium (1.6-2.6) mg/dL Total Bilirubin (0.0-1.0) mg/dL AST (5-31) U/L ALT (0-31) U/L Alkaline Phosphatase (39-117) U/L C-Reactive Protein (< or = 0.50) mg/dL Total Protein (6.5-8.0) g/dL Albumin (3.5-5.0) g/dL Beta HCG, Quant mIU/mL <Rin Corey MD - Last Filed: 11/17/22 21:11> Radiology Impression Radiologist Impression: My interpretation is in agreement with radiology's impression of the imaging study. <Rin Corey MD - Last Filed: 11/17/22 21:11> External Record Review External record reviewed: Outpatient record and Prior outpatient labs <Rin Corey MD - Last Filed: 11/17/22 21:11> Chronic Conditions Patient?s care impacted by: Other <Rin Corey MD - Last Filed: 11/17/22 21:11> IVDA <Rin Corey MD - Last Filed: 11/17/22 21:11> Discharge Plan Discharge Clinical Impression: Polysubstance use disorder, Foreign body in right upper extremity <LAINE Espana - Last Filed: 11/17/22 15:03> Patient Disposition: Home, Self-Care <LAINE Espana - Last Filed: 11/17/22 15:03> Instructions: Polysubstance Abuse (ED) <LAINE Espana - Last Filed: 11/17/22 15:03> Additional Instructions: 1. You have a needle in the vein of your right forearm, you need to fo llow-up with general surgery, the referral is available to you below. Please call the office 1st thing in the morning to set up an appointment for re- evaluation and scheduling for remove of the needle. 2. Please complete the antibiotics that you have been prescribed. 3. Please follow-up with your methadone clinic. Return to the ER for any worsening symptoms. <LAINE Espana - Last Filed: 11/17/22 15:03> Prescriptions: New doxycycline monohydrate 100 mg capsule 100 mg PO BID 7 Days Qty: 14 0RF cefdinir 300 mg capsule 300 mg PO BID 7 Days Qty: 14 0RF No Action diphenhydramine HCl [Benadryl] 25 mg capsule 25 mg PO TID PRN (Reason: allergic reaction) Qty: 20 0RF epinephrine [EpiPen 2-Isaak] 0.3 mg/0.3 mL auto-injector 0.3 mg IM Q4H PRN (Reason: anaphylaxis) Qty: 2 0RF methadone 10 mg Tablet 115 mg PO DAILY <LAINE Espana - Last Filed: 11/17/22 15:03> Referrals: [facility] [Primary Care Provider] - Steve Weston MD [Physician] - (Pt has needle in superficial vein of RUE) <LAINE Espana - Last Filed: 11/17/22 15:03> Interventions: [place]-Suicide Risk Severity Scale Last Done: 11/17/22 18:12 <LAINE Espana - Last Filed: 11/17/22 15:03>
[2022-11-17 17:10] LABS: Alanine Aminotransferase 9 U/L (0-31); Albumin Level 4.1 g/dL (3.5-5.0); Alkaline Phosphatase 85 U/L (39-117); Anion Gap 14 (12-20); Aspartate Amino Transferase 17 U/L (5-31); Bilirubin Total 0.6 mg/dL (0.0-1.0); Blood Urea Nitrogen 12 mg/dL (9-16); C Reactive Protein 1.42 mg/dL (< or = 0.50); Calcium 9.3 mg/dL (8.4-10.2); Carbon Dioxide 27 mmol/L (22-29); Chloride 103 mmol/L (96-108); Creatinine Clr Calc Pharmacy 88.1; Estimated Glomerular Filt Rate > 60; Glucose Random 91 mg/dL (60-115); HCG Quantitative < 2 mIU/mL; Magnesium 2.1 mg/dL (1.6-2.6); Potassium 3.7 mmol/L (3.3-5.1); Sodium 140 mmol/L (135-145); Total Protein 7.9 g/dL (6.5-8.0)
[2022-11-17 17:19] LABS: Erythrocyte Sedimentation Rate 27 MM/HR (0-20)
[2022-11-17 18:14] VITALS: PULSE 62
[2022-11-17 18:16] VITALS: BP 104/55; PULSE 62; RESP 18; O2SAT 98
[2022-11-17 18:57] LABS: MANUAL DIFF FLAG NO
[2022-11-17 19:14] LABS: INTERNATIONAL NORM RATIO 1.1 (0.9-1.1); Prothrombin Time 12.1 SEC (10.0-13.1)
[2022-11-17 19:18] LABS: Basophils Percent Auto 0.1 % (0-2); Eosinophils Absolute Auto 0.1 X10*3/uL (0.0-0.4); Eosinophils Percent Auto 1.2 % (0-4); Hematocrit 34.8 % (37.0-47.0); Hemoglobin 11.3 g/dl (12.0-16.0); Imm Gran Abs Auto 0.05 X10*3/uL (0.00-0.03); Imm Gran Pct Auto 0.7 % (0.0-0.4); Lymphocytes Absolute Auto 1.5 X10*3/uL (1.2-4.9); Lymphocytes Percent Auto 19.1 % (20-40); Mean Corpuscular HGB Conc 32.5 g/dl (31.0-35.0); Mean Corpuscular Hemoglobin 24.9 pg (27.0-33.0); Mean Corpuscular Volume 76.8 fL (80.0-98.0); Mean Platelet Volume 9.9 fL (9.4-12.3); Monocytes Absolute Auto 0.4 X10*3/uL (0.1-1.2); Monocytes Percent Auto 5.5 % (2-11); Neutrophils Absolute Auto 5.6 x10*3/uL (2.0-8.3); Neutrophils Percent Auto 73.4 % (45-73); Platelet Count 415 X10*3/uL (160-400); Red Blood Count 4.53 X10*6/uL (4.20-5.50); Red Cell Distribution Width 14.9 % (11.0-16.0); White Blood Count 7.7 X10*3/uL (4.8-10.8)
[2022-11-17] MEDS: Doxycycline Monohydrate 100 MG CAPSULE PO (21:17)
[2022-11-17 21:19] VITALS: TEMP 37.1
[2022-11-17 21:32] VITALS: PULSE 68; RESP 18; O2SAT 98
[2022-11-17] MEDS: methADONE HCl 20 MG/2 ML ORAL.CONC PO (21:32)
== END 2022-11-17 21:43 | disposition home or self-care (01) ==
PROVIDERS: Physician Assistant Medical; Emergency Provider Student in an Organized Health Care Education/Training Program
DX: F19.10 Other psychoactive substance abuse, uncomplicated (principal); W45.8XXA Other foreign body or object entering through skin, initial encounter; Y93.89 Activity, other specified; F11.20 Opioid dependence, uncomplicated; Y92.488 Other paved roadways as the place of occurrence of the external cause; Y99.9 Unspecified external cause status; Z79.899 Other long term (current) drug therapy
CPT/HCPCS: 36415; 80053; 83735; 84702; 85025; 85610; 85652; 86140; 87040; 93971; 99284

== ENCOUNTER 2022-12-20 16:08 | Inpatient (IN) | payer OTHER, SELFPAY ==
--- NOTE | ~2022-12-20 | US_ITS ---
Examination: Ultrasound extremity nonvascular. Clinical indications foreign body right forearm. Follow-up COMPARISON: Ultrasound the has duplex right upper extremity. TECHNIQUE: Routine ultrasound and color imaging of right upper extremity was performed with attention right forearm. FINDINGS: Again visualized is needle within the median vein unchanged to previous exam. There is no focal thrombus visualized. The needle measures 1.25 cm long. The vein is patent. No change in the echogenic needle within the median vein approximately 6 cm from the elbow. The more superficial aspect of the needle which is distal measures 0.3 cm from the skin surface.
--- NOTE | ~2022-12-20 | CT_ITS ---
Examination: CT left forearm without IV contrast. Clinical indication. Swelling left forearm question abscess. COMPARISON: Ultrasound right venous duplex 11/09/2022. TECHNIQUE: 3 mm thin axial and reformatted 1 mm thin sagittal coronal images of left forearm were obtained without contrast. DLP [address] examination was performed using dose optimization technique as appropriate, variously including the following: Automated exposure control Adjustment of MA and/or KV according to patient size(this includes techniques or standardized protocols for targeted exams where dose is matched to indication/reason for exam; extremities or head. Use of iterative reconstruction techniques. FINDINGS: There is subcutaneous edema along the palmar and dorsal aspect of proximal forearm but no gas or or air-fluid collection seen to suspect any abscess. Bone windows reveal no bony abnormality. CT/CT forearm LT wo IV con IMPRESSION: Diffuse cellulitis involving the proximal left forearm. No air-fluid level seen to suspect any abscess.
--- NOTE | 2022-12-20 16:29 | ED_ITS ---
HPI - Skin/Abscess/Foreign Bdy General Chief complaint: Skin/Abscess/Foreign Body Stated complaint: l arm cellulitis Time Seen by Provider: 12/20/22 16:10 Source: patient Mode of arrival: ambulatory Limitations: no limitations History of Present Illness HPI narrative: 32-year-old female history of polysubstance, presenting to the emergency department for evaluation of abcess to L elbow region x a few weeks worsening despite treatment w/ doxycycline, has been taking this for approximately 6 days. Patient reports subjective fevers and chills. Denies nausea, vomiting, abdominal pain, headache, vision changes, dizziness, weakness, chest pain, shortness of breath. Related Data Home Medications Medication Instructions Recorded Confirmed methadone 10 mg tablet 115 mg PO DAILY 10/28/22 10/28/22 Previous Rx's Medication Instructions Recorded diphenhydramine HCl 25 mg capsule 25 mg PO TID PRN allergic reaction 10/27/22 (Benadryl) #20 caps epinephrine 0.3 mg/0.3 mL 0.3 mg (0.3 mL) IM Q4H PRN 10/27/22 injection, auto-injector (EpiPen anaphylaxis #2 ea 2-Isaak) cefdinir 300 mg capsule 300 mg PO BID 7 days #14 caps 11/17/22 doxycycline monohydrate 100 mg 100 mg PO BID 7 days #14 caps 11/17/22 capsule Allergies Allergy/AdvReac Type Severity Reaction Status Date / Time Penicillins [PENICILLINS] Allergy Severe ANAPHYLAXIS Verified 10/27/22 22:14 soap [SOAP] Allergy Intermediate ITCHING Verified 10/27/22 22:14 aspirin [ASA] Allergy Unknown ANAPHYLAXIS Verified 10/27/22 22:14 cat dander [cats] Allergy Unknown moderately Verified 10/27/22 22:14 severe latex [LATEX] Allergy Unknown ANAPHYLAXIS Verified 10/27/22 22:14 shellfish derived Allergy Unknown Unknown Verified 10/27/22 22:14 tramadol [TRAMADOL] Allergy Unknown HIVES, Rash Verified 10/27/22 22:14 Review of Systems Review of Systems: Constitutional : No Weight loss, No Fever, No Chills, No Fatigue, No Malaise ENT/Mouth : No sore throat, No Rhinorrhea Eyes: No Eye Pain, No Swelling, No Redness Cardiovascular : No Chest Pain, No SOB, No Dyspnea on Exertion, No Orthopnea, No Edema, No Palpitations Respiratory : No Cough, No Sputum, No Wheezing Gastrointestinal : No Nausea, No Vomiting, No Diarrhea, No Constipation, No abdominal Pain, No Hematochezia, No Melena Genitourinary : No Dysuria, No Urinary Frequency, No Hematuria, Musculoskeletal : No joint pain, No Myalgias, No Joint Swelling Skin : No Skin Lesions, + rash, + abcess Neuro : No Weakness, No Numbness, No Dizziness, No Headache Psych : No Anxiety/Panic, No Depression All other systems reviewed and are negative Yes all other systems are reviewed and are negative [facility] Past Medical History Attestation statement: The following information was validated with the patient. Source: old records reviewed and nursing notes reviewed Medical History (Updated 12/20/22 @ 23:48 by LAINE Kimble) Left arm cellulitis Substance abuse Social History Social History Alcohol intake: former Patient Tobacco Use Status: Tobacco use Unknown Smoked in Last 30 Days: Yes Use of substances other than those prescribed or required for medical reasons: Yes Substance Use Type: Heroin and IV Drugs Substance Use Frequency Other:: Methadone daily Advance Directives: No Advance Directives Information Provided: No Patient : Yes Physical Exam Vital Signs: Vital Signs: Last Vital Signs Temp 98.6 F 12/20/22 21:12 Pulse 70 12/20/22 21:12 Resp 17 12/20/22 21:12 BP 112/67 12/20/22 21:12 Pulse Ox 98 12/20/22 21:12 O2 Del Method Room Air 12/20/22 21:12 BMI result Body Mass Index 16.6 vss Appearance: Alert.? Oriented X3.? No acute distress.? Head: Normocephalic, atraumatic, no step-offs or deformities Eyes: Pupils equal, round and reactive to light.? ENT: Pharynx normal.? Neck: Normal inspection.? Neck supple.? CVS: Normal heart rate and rhythm.? Pulses normal.? Respiratory: No respiratory distress.? Breath sounds normal.? Abdomen: Soft and nontender.? Skin: Skin warm and dry.? Normal skin color.? Normal skin turgor.? + large forming abscess to to inner aspect of L elbow w/ induration very little fluctuan t Extremities: No lower extremity edema.? No calf ttp. 5/5 strength to bilateral upper and lower extremities Neuro: Oriented X 3.? No motor deficit.? No sensory deficit. CN 2-12 intact Course Reevaluation(s) Reevaluation #1: Patient's CBC with leukocytosis of 11.5 likely secondary to cellulitis/forming and developing abscess, chemistry with no acute electrolyte abnormalities requiring intervention. Lactic acid normal. Culture sent. Urine toxicology positive for fentanyl, benzodiazepines. COVID negative. Patient receiving cefepime and vanco tolerating it well. Spoke to hospitalist jaymie hillman says he will reach out to surgery to evaluate this patient's abscess as it is very large and recurrent Time: 23:47 Medications Administered Generic Name Dose Route Start Last Admin Trade Name Freq PRN Reason Stop Dose Admin Ketorolac Tromethamine 30 mg 12/20/22 20:30 12/20/22 22:35 Ketorolac Tromethamine 30 Mg/Ml Vial IVPUSH 12/25/22 20:29 30 mg Q6H PRN Administration Pain, Mild (Pain Scale 1-3) Discontinued Medications Generic Name Dose Route Start Last Admin Trade Name Freq PRN Reason Stop Dose Admin Cefepime HCl 2 gm/ Sodium 50 mls @ 100 mls/hr 12/20/22 19:37 12/20/22 20:19 Chloride IV 12/20/22 20:06 Infused ONCE ONE Infusion Vancomycin HCl 1,250 mg/ 250 mls @ 166.667 mls/hr 12/20/22 20:00 12/20/22 22:20 Sodium Chloride IV 12/20/22 21:29 Infused ONCE ONE Infusion Medical Decision Making Medical Decision Making MDM Narrative: 32-year-old female presents to at the emergency department with abscess to left, failing p.o. therapy with doxycycline. Patient has history of polysubstance abuse, IV drug abuse. Coming from [facility] Physical exam with large forming abscess to the left medial aspect of elbow, with induration and erythema and warmth. At this time antibiotic treatment as patient is IV drug abuser. Will obtain basic labs. Likely will require surgical intervention as this is very large, and it is mostly indurated. Plann- labs, atbx Differential Diagnosis Differential Diagnoses: The differential diagnosis associated with the presentat ion includes At this time antibiotic treatment as patient is IV drug abuser. Will obtain basic labs. Likely will require surgical intervention as this is very large, and it is mostly indurated. Admission/Observation Consideration of admission/observation: Escalation of care including admission/observation considered Consult Healthcare Provider Management of the patient was discussed with: Hospitalist Lab Data MDM Lab Attestation statement: I reviewed the patient's lab results. 12/20/22 16:46 12/20/22 16:46 Labs: Lab Results 12/20/22 12/20/22 12/20/22 Range/Units 16:46 16:46 16:46 WBC 11.5 H (4.8-10.8) X10*3/uL RBC 5.03 (4.20-5.50) X10*6/uL Hgb 12.1 (12.0-16.0) g/dl Hct 38.1 (37.0-47.0) % MCV 75.7 L (80.0-98.0) fL MCH 24.1 L (27.0-33.0) pg MCHC 31.8 (31.0-35.0) g/dl RDW 14.9 (11.0-16.0) % Plt Count 543 H D (160-400) X10*3/uL MPV 9.4 (9.4-12.3) fL Immature Gran % (Auto) 0.4 (0.0-0.4) % Neut % (Auto) 81.3 H (45-73) % Lymph % (Auto) 10.5 L (20-40) % [place] % (Auto) 7.2 (2-11) % Eos % (Auto) 0.3 (0-4) % Baso % (Auto) 0.3 (0-2) % Lymph # (Auto) 1.2 (1.2-4.9) X10*3/uL [place] # (Auto) 0.8 (0.1-1.2) X10*3/uL Eos # (Auto) 0.0 (0.0-0.4) X10*3/uL Baso # (Auto) 0.0 (0.0-0.2) X10*3/uL Abs Immat Gran (auto) 0.05 H (0.00-0.03) X10*3/uL Absolute Neuts (auto) 9.4 H (2.0-8.3) x10*3/uL Absolute Nucleated RBC 0.000 (0.0-0.012) X10*3/uL Nucleated RBC % (auto) 0.0 (0.0-0.2) /100WBC Sodium 136 (135-145) mmol/L Potassium 4.5 D (3.3-5.1) mmol/L Chloride 100 (96-108) mmol/L Carbon Dioxide 26 (22-29) mmol/L Anion Gap 15 (12-20) BUN 10 (9-16) mg/dL Creatinine 0.81 (0.5-1.4) mg/dL Estim Creat Clear Calc TNP Estimated GFR > 60 Random Glucose 128 H (60-115) mg/dL Lactic Acid 1.6 (0.5-2.0) mmol/L Calcium 9.8 (8.4-10.2) mg/dL Magnesium 2.2 (1.6-2.6) mg/dL Total Bilirubin 0.6 (0.0-1.0) mg/dL AST 13 (5-31) U/L ALT 6 (0-31) U/L Alkaline Phosphatase 112 (39-117) U/L Total Protein 8.8 H (6.5-8.0) g/dL Albumin 4.0 (3.5-5.0) g/dL Beta HCG, Quant mIU/mL Urine Opiates Screen (Not Detect) Urine Fentanyl Screen (Not Detect) Ur Barbiturates Screen (Not Detect) Ur Phencyclidine Scrn (Not Detect) Ur Amphetamines Screen (Not Detect) U Benzodiazepines Scrn (Not Detect) Urine Cocaine Screen (Not Detect) U Marijuana (THC) Screen (Not Detect) COVID-19 (ANGIE) (Negative) COVID-19 Clin Com 12/20/22 12/20/22 12/20/22 Range/Units 22:14 22:21 22:57 WBC (4.8-10.8) X10*3/uL RBC (4.20-5.50) X10*6/uL Hgb (12.0-16.0) g/dl Hct (37.0-47.0) % MCV (80.0-98.0) fL MCH (27.0-33.0) pg MCHC (31.0-35.0) g/dl RDW (11.0-16.0) % Plt Count (160-400) X10*3/uL MPV (9.4-12.3) fL Immature Gran % (Auto) (0.0-0.4) % Neut % (Auto) (45-73) % Lymph % (Auto) (20-40) % [place] % (Auto) (2-11) % Eos % (Auto) (0-4) % Baso % (Auto) (0-2) % Lymph # (Auto) (1.2-4.9) X10*3/uL [place] # (Auto) (0.1-1.2) X10*3/uL Eos # (Auto) (0.0-0.4) X10*3/uL Baso # (Auto) (0.0-0.2) X10*3/uL Abs Immat Gran (auto) (0.00-0.03) X10*3/uL Absolute Neuts (auto) (2.0-8.3) x10*3/uL Absolute Nucleated RBC (0.0-0.012) X10*3/uL Nucleated RBC % (auto) (0.0-0.2) /100WBC Sodium (135-145) mmol/L Potassium (3.3-5.1) mmol/L Chloride (96-108) mmol/L Carbon Dioxide (22-29) mmol/L Anion Gap (12-20) BUN (9-16) mg/dL Creatinine (0.5-1.4) mg/dL Estim Creat Clear Calc Estimated GFR Random Glucose (60-115) mg/dL Lactic Acid (0.5-2.0) mmol/L Calcium (8.4-10.2) mg/dL Magnesium (1.6-2.6) mg/dL Total Bilirubin (0.0-1.0) mg/dL AST (5-31) U/L ALT (0-31) U/L Alkaline Phosphatase (39-117) U/L Total Protein (6.5-8.0) g/dL Albumin (3.5-5.0) g/dL Beta HCG, Quant < 2 mIU/mL Urine Opiates Screen Not Detected (Not Detect) Urine Fentanyl Screen POSITIVE H (Not Detect) Ur Barbiturates Screen Not Detected (Not Detect) Ur Phencyclidine Scrn Not Detected (Not Detect) Ur Amphetamines Screen Not Detected (Not Detect) U Benzodiazepines Scrn POSITIVE H (Not Detect) Urine Cocaine Screen Not Detected (Not Detect) U Marijuana (THC) Screen Not Detected (Not Detect) COVID-19 (ANGIE) Negative (Negative) COVID-19 Clin Com See Note External Record Review External record reviewed: Inpatient record, Office record, Outpatient record, Prior outpatient labs, Prior outpatient radiology and Primary care record Core Measures AMI core measures followed: Yes Measure exclusions: not indicated Critical Care Time Critical Care Time Critical Care Time: No Discharge Plan Discharge Clinical Impression: Left arm cellulitis Patient Disposition: Admitted As Inpatient Prescriptions: No Action diphenhydramine HCl [Benadryl] 25 mg capsule 25 mg PO TID PRN (Reason: allergic reaction) Qty: 20 0RF epinephrine [EpiPen 2-Isaak] 0.3 mg/0.3 mL auto-injector 0.3 mg IM Q4H PRN (Reason: anaphylaxis) Qty: 2 0RF methadone 10 mg Tablet 115 mg PO DAILY doxycycline monohydrate 100 mg capsule 100 mg PO BID 7 Days Qty: 14 0RF cefdinir 300 mg capsule 300 mg PO BID 7 Days Qty: 14 0RF
[2022-12-20 16:52] LABS: Basophils Percent Auto 0.3 % (0-2); Eosinophils Percent Auto 0.3 % (0-4); Hematocrit 38.1 % (37.0-47.0); Hemoglobin 12.1 g/dl (12.0-16.0); Imm Gran Abs Auto 0.05 X10*3/uL (0.00-0.03); Imm Gran Pct Auto 0.4 % (0.0-0.4); Lymphocytes Absolute Auto 1.2 X10*3/uL (1.2-4.9); Lymphocytes Percent Auto 10.5 % (20-40); MANUAL DIFF FLAG NO; Mean Corpuscular HGB Conc 31.8 g/dl (31.0-35.0); Mean Corpuscular Hemoglobin 24.1 pg (27.0-33.0); Mean Corpuscular Volume 75.7 fL (80.0-98.0); Mean Platelet Volume 9.4 fL (9.4-12.3); Monocytes Absolute Auto 0.8 X10*3/uL (0.1-1.2); Monocytes Percent Auto 7.2 % (2-11); Neutrophils Absolute Auto 9.4 x10*3/uL (2.0-8.3); Neutrophils Percent Auto 81.3 % (45-73); Platelet Count 543 X10*3/uL (160-400); Red Blood Count 5.03 X10*6/uL (4.20-5.50); Red Cell Distribution Width 14.9 % (11.0-16.0); White Blood Count 11.5 X10*3/uL (4.8-10.8)
[2022-12-20 17:04] LABS: Lactic Acid 1.6 mmol/L (0.5-2.0)
[2022-12-20 17:09] LABS: Alanine Aminotransferase 6 U/L (0-31); Alkaline Phosphatase 112 U/L (39-117); Anion Gap 15 (12-20); Aspartate Amino Transferase 13 U/L (5-31); Bilirubin Total 0.6 mg/dL (0.0-1.0); Blood Urea Nitrogen 10 mg/dL (9-16); Calcium 9.8 mg/dL (8.4-10.2); Carbon Dioxide 26 mmol/L (22-29); Chloride 100 mmol/L (96-108); Estimated Glomerular Filt Rate > 60; Glucose Random 128 mg/dL (60-115); Magnesium 2.2 mg/dL (1.6-2.6); Potassium 4.5 mmol/L (3.3-5.1); Sodium 136 mmol/L (135-145); Total Protein 8.8 g/dL (6.5-8.0)
[2022-12-20 17:41] VITALS: BP 101/61; PULSE 89; RESP 19; TEMP 36.7; O2SAT 98; BMI 16.6
[2022-12-20] MEDS: cefEPime HCl 2 GM in 0.9 % Sodium Chloride 50 ML IV (19:49)
--- NOTE | 2022-12-20 20:32 | P.HPHOSP_ITS ---
History of Present Illness Date of Service: 12/20/22 Chief Complaint: Left elbow swelling This is a 32-year-old female with pertinent history of heroin IV use disorder, currently on methadone who presents to the emergency department for evaluation of left upper extremity swelling, redness and pain. Patient states she 1st noticed swelling below the left elbow few days ago. It was associated with redness, warmth and pain. Patient also complains of associated subjective fevers and chills. She has been taking doxycycline for the last 3-4 days but states it has been worsening. Patient denies similar complaints in the past. States she last used IV drugs a while ago . Patient denies chest discomfort, shortness of breath, palpitations, abdominal pain, changes in urinary or bowel habits. Review of Systems Constitutional: Constitutional: Reports chills Cardiovascular: Cardiovascular: Reports no additional cardiovascular complaints Respiratory: Respiratory: Reports no additional respiratory complaints Gastrointestinal: Gastrointestinal: Reports no additional gastrointestinal complaints Genitourinary: Genitourinary: Reports no additional female genitourinary complaints Musculoskeletal: Musculoskeletal: Reports joint swelling and Reports limited range of motion [facility] Medical History (Updated 12/20/22 @ 20:36 by Aashish Rice MD) Left arm cellulitis Substance abuse Pertinent family history: No family history of early CAD Social History Alcohol intake: former Patient Tobacco Use Status: Tobacco use Unknown Substance Use Type: Heroin and IV Drugs Meds Allergies Allergy/AdvReac Type Severity Reaction Status Date / Time Penicillins [PENICILLINS] Allergy Severe ANAPHYLAXIS Verified 10/27/22 22:14 soap [SOAP] Allergy Intermediate ITCHING Verified 10/27/22 22:14 aspirin [ASA] Allergy Unknown ANAPHYLAXIS Verified 10/27/22 22:14 cat dander [cats] Allergy Unknown moderately Verified 10/27/22 22:14 severe latex [LATEX] Allergy Unknown ANAPHYLAXIS Verified 10/27/22 22:14 shellfish derived Allergy Unknown Unknown Verified 10/27/22 22:14 tramadol [TRAMADOL] Allergy Unknown HIVES, Rash Verified 10/27/22 22:14 Active Medications: Current Medications Acetaminophen (Acetaminophen 325 Mg Tablet) 650 mg PO Q6H PRN PRN Reason: Pain, Mild (Pain Scale 1-3) Vancomycin HCl 1,250 mg/ (Sodium Chloride) 250 mls @ 166.667 mls/hr IV ONCE ONE Stop: 12/20/22 21:29 Vancomycin HCl 750 mg/ Sodium (Chloride) 265 mls @ 265 mls/hr IV Q12H LASHA Cefepime HCl 2 gm/ Sodium (Chloride) 50 mls @ 100 mls/hr IV Q8H [facility] Ketorolac Tromethamine (Ketorolac Tromethamine 30 Mg/Ml Vial) 30 mg IVPUSH Q6H PRN PRN Reason: Pain, Mild (Pain Scale 1-3) Stop: 12/25/22 20:29 Melatonin (Melatonin 3 Mg Tablet) 6 mg PO BEDTIME PRN PRN Reason: Insomnia Ondansetron HCl (Ondansetron Hcl 4 Mg/2 Ml Vial) 4 mg IVPUSH Q8H PRN PRN Reason: Nausea and Vomiting Pharmacy Consult (Consult Rx Vancomycin Dosing) 1 each MISCELLANE DAILY PRN PRN Reason: Consult order Sodium Chloride (0.9 % Sodium Chloride Flush 3 Ml Syringe) [address] [facility] Home Medications Medication Instructions Recorded Confirmed Last Taken Type methadone 10 mg tablet 115 mg PO DAILY 10/28/22 10/28/22 10/26/22 09:00 History Physical Exam Vital Signs and Narrative: Vital Signs: Last Vital Signs Temp 98.0 F 12/20/22 17:41 Pulse 89 12/20/22 17:41 Resp 19 12/20/22 17:41 BP 101/61 12/20/22 17:41 Pulse Ox 98 12/20/22 17:41 O2 Del Method Room Air 12/20/22 17:41 BMI result Body Mass Index 16.6 Middle-aged female lying in bed in no distress Neck supple, no JVD Regular rate and rhythm, S1-S2 heard Regular breath sounds bilaterally, no wheezing or crackles appreciated Abdomen soft nontender, no guarding, no rigidity Patient is awake, alert and oriented to self, place, time and person ; no focal motor deficit Musculoskeletal: Swelling below left elbow with fluctuance, erythema, warmth and tenderness Psych: Normal mood No pedal edema Results Labs 12/20/22 16:46 12/20/22 16:46 Labs: Laboratory Results - last 24 hr 12/20/22 12/20/22 12/20/22 16:46 16:46 16:46 MCV 75.7 L MCH 24.1 L MCHC 31.8 RDW 14.9 Plt Count 543 H D MPV 9.4 Immature Gran % (Auto) 0.4 Neut % (Auto) 81.3 H Lymph % (Auto) 10.5 L [place] % (Auto) 7.2 Eos % (Auto) 0.3 Baso % (Auto) 0.3 Lymph # (Auto) 1.2 [place] # (Auto) 0.8 Eos # (Auto) 0.0 Baso # (Auto) 0.0 Abs Immat Gran (auto) 0.05 H Absolute Neuts (auto) 9.4 H Absolute Nucleated RBC 0.000 Nucleated RBC % (auto) 0.0 Anion Gap 15 Estim Creat Clear Calc TNP Estimated GFR > 60 Random Glucose 128 H Lactic Acid 1.6 Calcium 9.8 Magnesium 2.2 Total Bilirubin 0.6 AST 13 ALT 6 Alkaline Phosphatase 112 Total Protein 8.8 H Albumin 4.0 Assessment and Plan (1) Left arm cellulitis: Status: Acute Plan This is a 32-year-old female with pertinent history of heroin IV use disorder, currently on methadone who presents to the emergency department for evaluation of left upper extremity swelling, redness and pain. #. Left upper extremity cellulitis with concern for abscess: Failed outpatient p.o. antibiotics. With admit patient and initiate empiric IV antibiotics. Symptomatic analgesic p.r.n. Consulting general surgery for likely underlying abscess. Blood culture pending #. Substance use disorder: On methadone. Urine drug screen pending Med rec pending DVT prophylaxis: None. Patient is ambulatory Full code Regular diet Admit as inpatient and will require two night minimum hospital stay for IV antibiotics Time Spent With Patient Time: Total time managing care of this patient today ____ minutes. Quality Stroke Does the patient have a stroke diagnosis?: No VTE Prior VTE?: No VTE Risk Level:: Medical - low VTE Device Contraindication: Treatment Not Indicated VTE Drug Contraindication: Treatment Not Indicated
[2022-12-20] MEDS: vancomycin HCL 1,250 MG in 0.9 % Sodium Chloride 250 ML 166.67 MG IV (20:37)
[2022-12-20 21:12] VITALS: BP 112/67; PULSE 70; RESP 17; TEMP 37; O2SAT 98
[2022-12-20] MEDS: Ketorolac Tromethamine 30 MG/ML VIAL IVPUSH (22:35)
[2022-12-20 22:55] LABS: HCG Quantitative < 2 mIU/mL
[2022-12-20 22:58] LABS: COVID-19 Test Negative (Negative); IDNOW Serial# 08D9AD1C
[2022-12-20 23:12] LABS: Amphetamine Screen Urine Not Detected (Not Detect); Barbiturates, Urine Not Detected (Not Detect); Benzodiazepines Screen Urine POSITIVE (Not Detect); Cannabinoid Screen Urine Not Detected (Not Detect); Cocaine Screen Urine Not Detected (Not Detect); Fentanyl, urine POSITIVE (Not Detect); Opiate Screen Urine Not Detected (Not Detect); Phencyclidine Screen Urine Not Detected (Not Detect)
[2022-12-21 01:03] VITALS: BP 102/62; PULSE 76; RESP 17; TEMP 37.4; O2SAT 97
[2022-12-21] MEDS: 0.9 % Sodium Chloride Flush 3 ML SYRINGE IVFLUSH ×3 (01:17→20:50)
[2022-12-21] MEDS: diphenhydrAMINE HCL 50 MG/ML VIAL IVPUSH (02:33)
[2022-12-21] MEDS: Acetaminophen 325 MG TABLET 650 MG PO (02:49)
[2022-12-21] MEDS: traMADoL HCL 50 MG TABLET PO (03:37)
[2022-12-21] MEDS: cefEPime HCl 2 GM in 0.9 % Sodium Chloride 50 ML IV (03:38)
--- NOTE | 2022-12-21 03:57 | PC.NURSE ---
Patient alert and oriented x3 arrived via EMS from [facility] for left arm abscess failed to improve with outpatient po doxycycline. Patient reports 8-9/10 pain. 22 gauge IV in right forearm; second dose of cefapine currently running. Labs drawn. Plan is for admission for IV antibiotic administration and surgery consult. Call olsen within reach. Will continue to follow plan of care.
[2022-12-21 06:20] VITALS: BP 97/65; PULSE 73; TEMP 36.8; O2SAT 97
[2022-12-21 06:31] LABS: MANUAL DIFF FLAG NO
[2022-12-21 06:52] LABS: Anion Gap 11 (12-20); Blood Urea Nitrogen 19 mg/dL (9-16); Calcium 9.3 mg/dL (8.4-10.2); Carbon Dioxide 28 mmol/L (22-29); Chloride 104 mmol/L (96-108); Creatinine Clr Calc Pharmacy 70.7; Estimated Glomerular Filt Rate > 60; Glucose Random 93 mg/dL (60-115); Potassium 4.4 mmol/L (3.3-5.1); Sodium 139 mmol/L (135-145)
[2022-12-21 06:58] LABS: Basophils Percent Auto 0.3 % (0-2); Eosinophils Absolute Auto 0.1 X10*3/uL (0.0-0.4); Eosinophils Percent Auto 0.9 % (0-4); Hematocrit 35.2 % (37.0-47.0); Hemoglobin 11.3 g/dl (12.0-16.0); Imm Gran Abs Auto 0.04 X10*3/uL (0.00-0.03); Imm Gran Pct Auto 0.4 % (0.0-0.4); Lymphocytes Absolute Auto 1.8 X10*3/uL (1.2-4.9); Lymphocytes Percent Auto 16.6 % (20-40); Mean Corpuscular HGB Conc 32.1 g/dl (31.0-35.0); Mean Corpuscular Hemoglobin 24.3 pg (27.0-33.0); Mean Corpuscular Volume 75.7 fL (80.0-98.0); Mean Platelet Volume 9.3 fL (9.4-12.3); Monocytes Absolute Auto 0.8 X10*3/uL (0.1-1.2); Monocytes Percent Auto 7.2 % (2-11); Neutrophils Percent Auto 74.6 % (45-73); Platelet Count 502 X10*3/uL (160-400); Red Blood Count 4.65 X10*6/uL (4.20-5.50); Red Cell Distribution Width 14.9 % (11.0-16.0); White Blood Count 10.8 X10*3/uL (4.8-10.8)
--- NOTE | 2022-12-21 07:31 | PC.NURSE ---
Pt alert/oriented. Reports 10/10 pain to left inner forearm. Area red, warm and swollen. Elevated on pillow. Afebrile temp 98.7 orally. Awaits hospitalist evaluation. States Methadone, will verify with Yoshista
--- NOTE | 2022-12-21 07:40 | PC.NURSE ---
Dr. Cheek at bedside for I&D.
[2022-12-21] MEDS: Lidocaine HCl 1 % MPF 5 ML VIAL INFILTRATI ×2 (07:41→07:42)
--- NOTE | 2022-12-21 07:50 | PC.NURSE ---
Pt out of room for CT scan
--- NOTE | 2022-12-21 07:52 | P.CONGS_ITS ---
History of Present Illness Consult details Consult date: 12/21/22 Narrative: 32-year-old female, with known IV drug abuse, referred for a left forearm abscess. She says that she has had this area of pain, swelling and tenderness on the left forearm from previous IV injection site for about 3 days. She states that this has been worsening. She says that last used this IV site several weeks ago. She had been on doxycycline as an outpatient without any improvement. She has some fever and chills. Review of Systems Constitutional: Constitutional: Reports chills and Reports fever(s) Cardiovascular: Cardiovascular: Denies chest pain, Denies dyspnea and Denies dyspnea on exertion Respiratory: Respiratory: Denies cough, Denies dyspnea and Denies dyspnea on exertion Gastrointestinal: Gastrointestinal: Denies hematochezia and Denies change in bowel habits Genitourinary: Genitourinary: Denies hematuria Musculoskeletal: Musculoskeletal: Denies back pain and Denies limited range of motion Neurologic: Denies focal weakness and Denies convulsions Psychiatric: Psychiatric: Denies depression and Denies mood swings [facility] Past Medical History Medical History (Updated 12/21/22 @ 07:56 by Mino Cheek MD) Abscess of left arm Left arm cellulitis Substance abuse Social History Social History Alcohol intake: former Patient Tobacco Use Status: Tobacco use Unknown Smoked in Last 30 Days: Yes Use of substances other than those prescribed or required for medical reasons: Yes Substance Use Type: Heroin and IV Drugs Substance Use Frequency Other:: Methadone daily Advance Directives: No Advance Directives Information Provided: No Nutrition Risks: No Nutritional Risk Patient : Yes Meds Allergies Allergy/AdvReac Type Severity Reaction Status Date / Time Penicillins [PENICILLINS] Allergy Severe ANAPHYLAXIS Verified 10/27/22 22:14 soap [SOAP] Allergy Intermediate ITCHING Verified 10/27/22 22:14 aspirin [ASA] Allergy Unknown ANAPHYLAXIS Verified 10/27/22 22:14 cat dander [cats] Allergy Unknown moderately Verified 10/27/22 22:14 severe latex [LATEX] Allergy Unknown ANAPHYLAXIS Verified 10/27/22 22:14 shellfish derived Allergy Unknown Unknown Verified 10/27/22 22:14 tramadol [TRAMADOL] Allergy Unknown HIVES, Rash Verified 10/27/22 22:14 Active Medications: Current Medications Acetaminophen (Acetaminophen 325 Mg Tablet) 650 mg PO Q6H PRN PRN Reason: Pain, Mild (Pain Scale 1-3) Last Admin: 12/21/22 02:49 Dose: 650 mg Vancomycin HCl 750 mg/ Sodium (Chloride) 265 mls @ 265 mls/hr IV Q12H [facility] Cefepime HCl 2 gm/ Sodium (Chloride) 50 mls @ 100 mls/hr IV Q8H [facility] Last Infusion: 12/21/22 04:08 Dose: Infused Ketorolac Tromethamine (Ketorolac Tromethamine 30 Mg/Ml Vial) 30 mg IVPUSH Q6H PRN PRN Reason: Pain, Mild (Pain Scale 1-3) Stop: 12/25/22 20:29 Last Admin: 12/20/22 22:35 Dose: 30 mg Melatonin (Melatonin 3 Mg Tablet) 6 mg PO BEDTIME PRN PRN Reason: Insomnia Ondansetron HCl (Ondansetron Hcl 4 Mg/2 Ml Vial) 4 mg IVPUSH Q8H PRN PRN Reason: Nausea and Vomiting Pharmacy Consult (Consult Rx Vancomycin Dosing) 1 each MISCELLANE DAILY PRN PRN Reason: Consult order Pharmacy Consult (Consult Rx Perform Med Rec) 1 each MISCELLANE ONCE PRN PRN Reason: Consult order Sodium Chloride (0.9 % Sodium Chloride Flush 3 Ml Syringe) [facility] Last Admin: 12/21/22 01:17 Dose: 3 ml Home Medications Medication Instructions Recorded Confirmed Last Taken Type methadone 10 mg tablet 115 mg PO DAILY 10/28/22 12/21/22 1 Day Ago History ~12/20/22 10 Physical Exam Vital Signs: Vital Signs: Last Vital Signs Temp 98.3 F 12/21/22 06:20 Pulse 73 12/21/22 06:20 Resp 17 12/21/22 01:03 BP 97/65 12/21/22 06:20 Pulse Ox 97 12/21/22 06:20 O2 Del Method Room Air 12/21/22 06:20 BMI result Body Mass Index 16.6 Const: General: comfortable and no acute distress Or ientation/consciousness: patient oriented x3 Neck: Neck: Yes no lymphadenopathy Resp: Auscultation: clear to auscultation bilaterally Cardio: Rhythm: regular rhythm GI: Palpation (GI): Soft to palpation, nontender and no guarding Neuro: General: patient oriented x3 Extrem: Other: Left forearm with area of induration with redness, 5 cm in diameter, along with central fluctuance consistent with an abscess, very tender to touch Results Labs 12/21/22 06:27 12/21/22 06:27 Labs: Abnormal lab results 12/20/22 12/20/22 12/20/22 Range/Units 16:46 16:46 22:57 WBC 11.5 H (4.8-10.8) X10*3/uL Hgb (12.0-16.0) g/dl Hct (37.0-47.0) % MCV 75.7 L (80.0-98.0) fL MCH 24.1 L (27.0-33.0) pg Plt Count 543 H D (160-400) X10*3/uL MPV (9.4-12.3) fL Neut % (Auto) 81.3 H (45-73) % Lymph % (Auto) 10.5 L (20-40) % Abs Immat Gran (auto) 0.05 H (0.00-0.03) X10*3/uL Absolute Neuts (auto) 9.4 H (2.0-8.3) x10*3/uL Anion Gap (12-20) BUN (9-16) mg/dL Random Glucose 128 H (60-115) mg/dL Total Protein 8.8 H (6.5-8.0) g/dL Urine Fentanyl Screen POSITIVE H (Not Detect) U Benzodiazepines Scrn POSITIVE H (Not Detect) 12/21/22 12/21/22 Range/Units 06:27 06:27 WBC (4.8-10.8) X10*3/uL Hgb 11.3 L (12.0-16.0) g/dl Hct 35.2 L (37.0-47.0) % MCV 75.7 L (80.0-98.0) fL MCH 24.3 L (27.0-33.0) pg Plt Count 502 H (160-400) X10*3/uL MPV 9.3 L (9.4-12.3) fL Neut % (Auto) 74.6 H (45-73) % Lymph % (Auto) 16.6 L (20-40) % Abs Immat Gran (auto) 0.04 H (0.00-0.03) X10*3/uL Absolute Neuts (auto) (2.0-8.3) x10*3/uL Anion Gap 11 L (12-20) BUN 19 H (9-16) mg/dL Random Glucose (60-115) mg/dL Total Protein (6.5-8.0) g/dL Urine Fentanyl Screen (Not Detect) U Benzodiazepines Scrn (Not Detect) Short CBC 12/20/22 12/21/22 Range/Units 16:46 06:27 WBC 11.5 H 10.8 (4.8-10.8) X10*3/uL Hgb 12.1 11.3 L (12.0-16.0) g/dl Hct 38.1 35.2 L (37.0-47.0) % Plt Count 543 H D 502 H (160-400) X10*3/uL BMP 12/20/22 12/21/22 12/21/22 16:46 06:27 06:27 Sodium 136 139 Potassium 4.5 D 4.4 Chloride 100 104 Carbon Dioxide 26 28 BUN 10 19 H Creatinine 0.81 0.81 0.81 Calcium 9.8 9.3 Liver Function 12/20/22 Range/Units 16:46 Total Bilirubin 0.6 (0.0-1.0) mg/dL AST 13 (5-31) U/L ALT 6 (0-31) U/L Alkaline Phosphatase 112 (39-117) U/L Albumin 4.0 (3.5-5.0) g/dL All other labs normal. Assessment and Plan (1) Abscess of left arm: Status: Acute She has a large abscess the left forearm as described above. I explained to her that it would be best to proceed with I& D. I explained the technique of this procedure under local anesthesia at bedside. I reviewed the risks, benefits, and alternatives and she had given consent. I and D was done under local anesthesia with large amounts of pus drained. I applied dressings and then wrapped the forearm with Melinda roll. She tolerated the procedure well. There were no immediate complications. Cultures were taken. She has been started on IV antibiotics. I will follow along while she is in the hospital. Time Spent With Patient Time: Total time managing care of this patient today ____ minutes. Procedures Date of Service Date of Service: 12/21/22 Abscess I/D Consent for Procedure: Elective - informed consent obtained Site: upper extremity Side (if applicable): left ( forearm area) Sedation/analgesia: none Anesthetic used: lidocaine 1% Technique: incised with #11 blade Amount of fluid (mL): 15 Irrigation: No Packing used?: none Additional comments: the area had been prepped and draped prior to the I&D. Cultures were taken.
[2022-12-21 07:59] LABS: Iron 15 mcg/dL (30-160); Percent Iron Saturation 6 % (15-50); Total Iron Binding Capacity 253 mcg/dL (228-428); Unsaturated Iron Binding 238 ug/dL
--- NOTE | 2022-12-21 08:07 | PHA.MEDREC ---
Pharmacy Consult ? Medication Reconciliation Pharmacy has completed the medication reconciliation.
[2022-12-21 08:21] LABS: Ferritin 102 ng/mL (10-122)
--- NOTE | 2022-12-21 08:25 | P.PNIM_ITS ---
Subjective Subjective Date of Service: 12/21/22 Interval History: left arm pain and swelling Physical Exam Vital Signs: Vital Signs: Last Vital Signs Temp 98.3 F 12/21/22 06:20 Pulse 73 12/21/22 06:20 Resp 17 12/21/22 01:03 BP 97/65 12/21/22 06:20 Pulse Ox 97 12/21/22 06:20 O2 Del Method Room Air 12/21/22 06:20 BMI result Body Mass Index 16.6 jm adhikari, s/p i and d Objective Data Active Medications Acetaminophen (Acetaminophen 325 Mg Tablet) 650 mg PO Q6H PRN PRN Reason: Pain, Mild (Pain Scale 1-3) Last Admin: 12/21/22 02:49 Dose: 650 mg Documented By: ALOK Folic Acid (Folic Acid 1 Mg Tablet) 1 mg PO DAILY [facility] Vancomycin HCl 750 mg/ Sodium (Chloride) 265 mls @ 265 mls/hr IV Q12H [facility] Cefepime HCl 2 gm/ Sodium (Chloride) 50 mls @ 100 mls/hr IV Q8H [facility] Last Infusion: 12/21/22 04:08 Dose: 0 mls/hr Documented By: YO Ketorolac Tromethamine (Ketorolac Tromethamine 30 Mg/Ml Vial) 30 mg IVPUSH Q6H PRN PRN Reason: Pain, Mild (Pain Scale 1-3) Stop: 12/25/22 20:29 Last Admin: 12/20/22 22:35 Dose: 30 mg Documented By: ALOK Magnesium Oxide (Magnesium Oxide 400 Mg Tablet) 400 mg PO DAILY [facility] Melatonin (Melatonin 3 Mg Tablet) 6 mg PO BEDTIME PRN PRN Reason: Insomnia Methadone HCl (Methadone Hcl 5 Mg Tablet) 115 mg PO DAILY [facility] Multivitamins/Vitamin C (Multivitamin Tablet) 1 tab PO DAILY [facility] Ondansetron HCl (Ondansetron Hcl 4 Mg/2 Ml Vial) 4 mg IVPUSH Q8H PRN PRN Reason: Nausea and Vomiting Pharmacy Consult (Consult Rx Vancomycin Dosing) 1 each MISCELLANE DAILY PRN PRN Reason: Consult order Pharmacy Consult (Consult Rx Perform Med Rec) 1 each MISCELLANE ONCE PRN PRN Reason: Consult order Sodium Chloride (0.9 % Sodium Chloride Flush 3 Ml Syringe) 3 ml IVFLUSH QSHIFT [facility] Last Admin: 12/21/22 01:17 Dose: 3 ml Documented By: ALOK Thiamine HCl (Thiamine Hcl 100 Mg Tablet) 100 mg PO DAILY [facility] Labs 12/21/22 06:27 12/21/22 06:27 Labs: Laboratory Results - last 24 hr 12/20/22 12/20/22 12/20/22 16:46 16:46 16:46 MCV 75.7 L MCH 24.1 L MCHC 31.8 RDW 14.9 Plt Count 543 H D MPV 9.4 Immature Gran % (Auto) 0.4 Neut % (Auto) 81.3 H Lymph % (Auto) 10.5 L Sierra % (Auto) 7.2 Eos % (Auto) 0.3 Baso % (Auto) 0.3 Lymph # (Auto) 1.2 Sierra # (Auto) 0.8 Eos # (Auto) 0.0 Baso # (Auto) 0.0 Abs Immat Gran (auto) 0.05 H Absolute Neuts (auto) 9.4 H Absolute Nucleated RBC 0.000 Nucleated RBC % (auto) 0.0 Anion Gap 15 Estim Creat Clear Calc TNP Estimated GFR > 60 Random Glucose 128 H Lactic Acid 1.6 Calcium 9.8 Magnesium 2.2 Iron TIBC % Saturation Unsat Iron Binding Ferritin Total Bilirubin 0.6 AST 13 ALT 6 Alkaline Phosphatase 112 Total Protein 8.8 H Albumin 4.0 Beta HCG, Quant Urine Opiates Screen Urine Fentanyl Screen Ur Barbiturates Screen Ur Phencyclidine Scrn Ur Amphetamines Screen U Benzodiazepines Scrn Urine Cocaine Screen U Marijuana (THC) Screen COVID-19 ([facility]IE) COVID-19 Clin Com 12/20/22 12/20/22 12/20/22 22:14 22:21 22:57 MCV MCH MCHC RDW Plt Count MPV Immature Gran % (Auto) Neut % (Auto) Lymph % (Auto) Sierra % (Auto) Eos % (Auto) Baso % (Auto) Lymph # (Auto) Sierra # (Auto) Eos # (Auto) Baso # (Auto) Abs Immat Gran (auto) Absolute Neuts (auto) Absolute Nucleated RBC Nucleated RBC % (auto) Anion Gap Estim Creat Clear Calc Estimated GFR Random Glucose Lactic Acid Calcium Magnesium Iron TIBC % Saturation Unsat Iron Binding Ferritin Total Bilirubin AST ALT Alkaline Phosphatase Total Protein Albumin Beta HCG, Quant < 2 Urine Opiates Screen Not Detected Urine Fentanyl Screen POSITIVE H Ur Barbiturates Screen Not Detected Ur Phencyclidine Scrn Not Detected Ur Amphetamines Screen Not Detected U Benzodiazepines Scrn POSITIVE H Urine Cocaine Screen Not Detected U Marijuana (THC) Screen Not Detected COVID-19 (ANGIE) Negative COVID-19 Clin Com See Note 12/21/22 12/21/22 12/21/22 06:27 06:27 06:27 MCV 75.7 L MCH 24.3 L MCHC 32.1 RDW 14.9 Plt Count 502 H MPV 9.3 L Immature Gran % (Auto) 0.4 Neut % (Auto) 74.6 H Lymph % (Auto) 16.6 L Sierra % (Auto) 7.2 Eos % (Auto) 0.9 Baso % (Auto) 0.3 Lymph # (Auto) 1.8 Sierra # (Auto) 0.8 Eos # (Auto) 0.1 Baso # (Auto) 0.0 Abs Immat Gran (auto) 0.04 H Absolute Neuts (auto) 8.0 Absolute Nucleated RBC 0.000 Nucleated RBC % (auto) 0.0 Anion Gap 11 L Estim Creat Clear Calc 70.7 70.7 Estimated GFR > 60 > 60 Random Glucose 93 Lactic Acid Calcium 9.3 Magnesium Iron 15 L TIBC 253 % Saturation 6 L Unsat Iron Binding 238 Ferritin 102 Total Bilirubin AST ALT Alkaline Phosphatase Total Protein Albumin Beta HCG, Quant Urine Opiates Screen Urine Fentanyl Screen Ur Barbiturates Screen Ur Phencyclidine Scrn Ur Amphetamines Screen U Benzodiazepines Scrn Urine Cocaine Screen U Marijuana (THC) Screen COVID-19 ([facility]IE) COVID-19 Clin Com Assessment and Plan (1) Abscess of left arm: Status: Acute Plan 32F PMH polysubstance dependence presented with lue erythema, pain and swelling LUE abscess and cellulitis due to IVDA s/p i and d, continue vanc, follow up cultures recent RUE foreign body (needle) follow up repeat us opiate dependence methadone addiction team eval chronic iron defeciency anemia oral supplement dvt prophylaxis - low risk full code reason for continued hospitalization: iv abx, high risk for bacteremia, awaiting cultures Time Spent With Patient Time: Total time managing care of this patient today ____ minutes. Quality Stroke Does the patient have a stroke diagnosis?: No VTE Prior VTE?: No VTE Risk Level:: Medical - low VTE Device Contraindication: Treatment Not Indicated VTE Drug Contraindication: Treatment Not Indicated
[2022-12-21] MEDS: Ketorolac Tromethamine 30 MG/ML VIAL IVPUSH ×3 (08:26→22:23)
[2022-12-21] MEDS: vancomycin HCL 750 MG in 0.9 % Sodium Chloride 250 ML 265 MG IV ×2 (08:28→20:49)
[2022-12-21] MEDS: Folic Acid 1 MG TABLET PO (09:35)
[2022-12-21] MEDS: Thiamine HCL 100 MG TABLET PO (09:36)
[2022-12-21] MEDS: Multivitamin TABLET 1 TAB PO (09:36)
[2022-12-21] MEDS: Magnesium Oxide 400 MG TABLET PO (09:36)
[2022-12-21] MEDS: Ferrous Sulfate 324 MG TABLET.DR PO (09:36)
--- NOTE | 2022-12-21 09:46 | MHC.RECOVRN ---
Addendum entered by Kristy Lopez 12/21/22 09:54: Provider already ordered 25 mg methadone. Pt to receive 25 mg and reassess. Original Note: Met with pt in ED19 to assess for withdrawal. Pt laying in bed, eyes closed, wakes to voice. Pt reports withdrawal symptoms including body aches, feeling hot/cold, appears slightly diaphoretic. Pt would like to utilize methadone while here for withdrawal symptoms. Pt had been transported to [facility] from [facility] on 12/20, plan was to complete a methadone taper. Discussed with Bobbi Bonilla APRN. Plan for 30 mg methadone and continue discussion when pt is more comfortable.
--- NOTE | 2022-12-21 09:48 | HE.PHANOTE ---
RE METHADONE LAST DOSE 25 MG, DOSED 12/20/22 AT [facility]
[2022-12-21] MEDS: methADONE HCl 20 MG/2 ML ORAL.CONC 25 MG PO (10:13)
[2022-12-21 15:06] VITALS: BP 95/56; PULSE 74; RESP 17; TEMP 36.4; O2SAT 98
[2022-12-21 16:01] VITALS: BMI 16.6
--- NOTE | 2022-12-21 16:12 | MHC.CLN ---
NUTRITION CONSULT FOR SKIN. SKIN WITH LEFT ELBOW ABSCESS, REDNESS AND SWELLING. REGULAR DIET. LIKES AND REQUESTED ENSURE TID. SUPPLEMENT PROVIDES ADDITIONAL 1050 KCALS, 60 G PROTEIN. APPEARS THIN, BUT DOES NOT APPEAR MALNOURISHED. REPORTS THAT NOT EATING WELL DUE TO PAIN. WEIGHT HX REVIEWED AND SHOWS VARYING WEIGHTS. REPORTS WEIGHT STABLE X ONE YEAR. SEE CLINICAL NUTRITION ASSESSMENT 12/21/22.
[2022-12-21 19:55] VITALS: BP 98/59; PULSE 77; RESP 18; TEMP 36.9; O2SAT 97
[2022-12-21] MEDS: Melatonin 3 MG TABLET 6 MG PO (22:23)
[2022-12-22 03:15] VITALS: BP 101/58; PULSE 62; RESP 16; TEMP 36.3; O2SAT 97
[2022-12-22 07:32] LABS: Hematocrit 34.8 % (37.0-47.0); Hemoglobin 10.9 g/dl (12.0-16.0); Mean Corpuscular HGB Conc 31.3 g/dl (31.0-35.0); Mean Corpuscular Hemoglobin 24.1 pg (27.0-33.0); Mean Corpuscular Volume 76.8 fL (80.0-98.0); Platelet Count 486 X10*3/uL (160-400); Red Blood Count 4.53 X10*6/uL (4.20-5.50); Red Cell Distribution Width 14.9 % (11.0-16.0); White Blood Count 5.9 X10*3/uL (4.8-10.8)
[2022-12-22 07:36] VITALS: BP 101/53; PULSE 72; RESP 16; TEMP 36.6; O2SAT 99
[2022-12-22 07:51] LABS: Vancomycin Random 6.8 mcg/mL (15-20)
[2022-12-22 07:55] LABS: Anion Gap 12 (12-20); Blood Urea Nitrogen 24 mg/dL (9-16); Calcium 8.9 mg/dL (8.4-10.2); Carbon Dioxide 26 mmol/L (22-29); Chloride 107 mmol/L (96-108); Estimated Glomerular Filt Rate > 60; Glucose Fasting 96 mg/dL (60-99); Potassium 5.1 mmol/L (3.3-5.1); Sodium 140 mmol/L (135-145)
--- NOTE | 2022-12-22 08:03 | HE.PHANOTE ---
RE VANCO TROUGH WAS SUBTHERAPUETIC. WENT TO 750 Q8H, NEXT LEVEL SUSPECTED 17.1, AUC 576
[2022-12-22] MEDS: Magnesium Oxide 400 MG TABLET PO (08:10)
[2022-12-22] MEDS: Ferrous Sulfate 324 MG TABLET.DR PO (08:10)
[2022-12-22] MEDS: Folic Acid 1 MG TABLET PO (08:10)
[2022-12-22] MEDS: Thiamine HCL 100 MG TABLET PO (08:10)
[2022-12-22] MEDS: Multivitamin TABLET 1 TAB PO (08:10)
[2022-12-22] MEDS: vancomycin HCL 750 MG in 0.9 % Sodium Chloride 250 ML 265 MG IV (08:11)
[2022-12-22] MEDS: methADONE HCl 20 MG/2 ML ORAL.CONC 30 MG PO (08:11)
[2022-12-22] MEDS: 0.9 % Sodium Chloride Flush 3 ML SYRINGE IVFLUSH ×2 (08:14→15:07)
--- NOTE | 2022-12-22 08:35 | P.PNIM_ITS ---
Subjective Subjective Date of Service: 12/22/22 Interval History: improving Physical Exam Vital Signs: Vital Signs: Last Vital Signs Temp 97.8 F 12/22/22 07:36 Pulse 72 12/22/22 07:36 Resp 16 12/22/22 07:36 BP 101/53 L 12/22/22 07:36 Pulse Ox 99 12/22/22 07:36 O2 Del Method Room Air 12/22/22 07:36 BMI result Body Mass Index 16.6 jm adhikari, s/p i and d Objective Data Active Medications Acetaminophen (Acetaminophen 325 Mg Tablet) 650 mg PO Q6H PRN PRN Reason: Pain, Mild (Pain Scale 1-3) Last Admin: 12/21/22 02:49 Dose: 650 mg Documented By: ALOK Ferrous Sulfate (Ferrous Sulfate 324 Mg Tablet.) 324 mg PO DAILY [facility] Last Admin: 12/22/22 08:10 Dose: 324 mg Documented By: ANGEL Folic Acid (Folic Acid 1 Mg Tablet) 1 mg PO DAILY [facility] Last Admin: 12/22/22 08:10 Dose: 1 mg Documented By: ANGEL Vancomycin HCl 750 mg/ Sodium (Chloride) 265 mls @ 265 mls/hr IV Q8H [facility] Last Admin: 12/22/22 08:11 Dose: 265 mls/hr Documented By: ANGEL Ketorolac Tromethamine (Ketorolac Tromethamine 30 Mg/Ml Vial) 30 mg IVPUSH Q6H PRN PRN Reason: Pain, Mild (Pain Scale 1-3) Stop: 12/25/22 20:29 Last Admin: 12/21/22 22:23 Dose: 30 mg Documented By: AYDE Magnesium Oxide (Magnesium Oxide 400 Mg Tablet) 400 mg PO DAILY [facility] Last Admin: 12/22/22 08:10 Dose: 400 mg Documented By: ANGEL Melatonin (Melatonin 3 Mg Tablet) 6 mg PO BEDTIME PRN PRN Reason: Insomnia Last Admin: 12/21/22 22:23 Dose: 6 mg Documented By: AYDE Methadone HCl (Methadone Hcl 20 Mg/2 Ml Oral.Conc) 30 mg PO DAILY [facility] Last Admin: 12/22/22 08:11 Dose: 30 mg Documented By: ANGEL Multivitamins/Vitamin C (Multivitamin Tablet) 1 tab PO DAILY [facility] Last Admin: 12/22/22 08:10 Dose: 1 tab Documented By: ANGEL Ondansetron HCl (Ondansetron Hcl 4 Mg/2 Ml Vial) 4 mg IVPUSH Q8H PRN PRN Reason: Nausea and Vomiting Pharmacy Consult (Consult Rx Vancomycin Dosing) 1 each MISCELLANE DAILY PRN PRN Reason: Consult order Pharmacy Consult (Consult Rx Perform Med Rec) 1 each MISCELLANE ONCE PRN PRN Reason: Consult order Sodium Chloride (0.9 % Sodium Chloride Flush 3 Ml Syringe) 3 ml IVFLUSH QSHIFT [facility] Last Admin: 12/22/22 08:14 Dose: 3 ml Documented By: ANGEL Thiamine HCl (Thiamine Hcl 100 Mg Tablet) 100 mg PO DAILY [facility] Last Admin: 12/22/22 08:10 Dose: 100 mg Documented By: ANGEL Labs 12/22/22 07:08 12/22/22 07:08 Labs: Laboratory Results - last 24 hr 12/22/22 12/22/22 12/22/22 07:08 07:08 07:08 MCV 76.8 L MCH 24.1 L MCHC 31.3 RDW 14.9 Plt Count 486 H MPV 10.0 Absolute Nucleated RBC 0.000 Nucleated RBC % (auto) 0.0 Anion Gap 12 Estim Creat Clear Calc 69.0 Estimated GFR > 60 Fasting Glucose 96 Calcium 8.9 Random Vancomycin 6.8 L Microbiology Microbiology Results: Microbiology 12/20/22 16:46 Blood Culture - Preliminary Blood - Venous No growth after 24 hours. 12/20/22 16:46 Blood Culture - Preliminary Blood - Venous No growth after 24 hours. 12/21/22 08:23 Gram Stain - Final Forearm Left Assessment and Plan (1) Abscess of left arm: Status: Acute Plan 32F PMH polysubstance dependence presented with lue erythema, pain and swelling LUE abscess and cellulitis due to IVDA s/p i and d, continue vanc, follow up cultures, no growth so far recent RUE foreign body (needle) still present on repeat us follow up surgery opiate dependence methadone addiction team eval chronic iron defeciency anemia oral supplement dvt prophylaxis - low risk full code reason for continued hospitalization: iv abx, high risk for bacteremia, awaiting final cultures Time Spent With Patient Time: Total time managing care of this patient today ____ minutes. Quality Stroke Does the patient have a stroke diagnosis?: No VTE Prior VTE?: No VTE Risk Level:: Medical - low VTE Device Contraindication: Treatment Not Indicated VTE Drug Contraindication: Treatment Not Indicated
--- NOTE | 2022-12-22 10:02 | P.PNGS_ITS ---
Subjective Subjective Date of Service: 12/22/22 <Damari Sears PA-C - Last Filed: 12/22/22 10:06> 12/22/22 <Mino Cheek MD - Last Filed: 12/22/22 11:51> Interval history: Feels better this morning, some soreness at I&D site. Wants to shower. <Damari Sears PA-C - Last Filed: 12/22/22 10:06> Physical Exam Vital Signs: Vital Signs: Last Vital Signs Temp 97.8 F 12/22/22 07:36 Pulse 72 12/22/22 07:36 Resp 16 12/22/22 07:36 BP 101/53 L 12/22/22 07:36 Pulse Ox 99 12/22/22 07:36 O2 Del Method Room Air 12/22/22 07:36 BMI result Body Mass Index 16.6 <Damari Sears PA-C - Last Filed: 12/22/22 10:06> Const: General: comfortable, no acute distress and alert <Damari Sears PA-C - Last Filed: 12/22/22 10:06> Orientation/consciousness: patient oriented x3 <Damari Sears PA-C - Last Filed: 12/22/22 10:06> Resp: Effort & Inspection: normal respiratory effort <Damari Sears PA-C - Last Filed: 12/22/22 10:06> Skin: Other: warm and dry <Damari Sears PA-C - Last Filed: 12/22/22 10:06> Neuro: General: patient oriented x3 and moves all extremities <Damari Sears PA-C - Last Filed: 12/22/22 10:06> Extrem: Other: left upper extremity- dressing dry and intact to forearm <MYLA Khalil Last Filed: 12/22/22 10:06> Objective Data Active Medications Acetaminophen (Acetaminophen 325 Mg Tablet) 650 mg PO Q6H PRN PRN Reason: Pain, Mild (Pain Scale 1-3) Last Admin: 12/21/22 02:49 Dose: 650 mg Documented By: ALOK Ferrous Sulfate (Ferrous Sulfate 324 Mg Tablet.Dr) 324 mg PO DAILY LASHA Last Admin: 12/22/22 08:10 Dose: 324 mg Documented By: ANGEL Folic Acid (Folic Acid 1 Mg Tablet) 1 mg PO DAILY [facility] Last Admin: 12/22/22 08:10 Dose: 1 mg Documented By: ANGEL Vancomycin HCl 750 mg/ Sodium (Chloride) 265 mls @ 265 mls/hr IV Q8H [facility] Last Admin: 12/22/22 08:11 Dose: 265 mls/hr Documented By: ANGEL Ketorolac Tromethamine (Ketorolac Tromethamine 30 Mg/Ml Vial) 30 mg IVPUSH Q6H PRN PRN Reason: Pain, Mild (Pain Scale 1-3) Stop: 12/25/22 20:29 Last Admin: 12/21/22 22:23 Dose: 30 mg Documented By: AYDE Magnesium Oxide (Magnesium Oxide 400 Mg Tablet) 400 mg PO DAILY [facility] Last Admin: 12/22/22 08:10 Dose: 400 mg Documented By: ANGEL Melatonin (Melatonin 3 Mg Tablet) 6 mg PO BEDTIME PRN PRN Reason: Insomnia Last Admin: 12/21/22 22:23 Dose: 6 mg Documented By: AYDE Methadone HCl (Methadone Hcl 20 Mg/2 Ml Oral.Conc) 30 mg PO DAILY [facility] Last Admin: 12/22/22 08:11 Dose: 30 mg Documented By: ANGEL Multivitamins/Vitamin C (Multivitamin Tablet) 1 tab PO DAILY [facility] Last Admin: 12/22/22 08:10 Dose: 1 tab Documented By: ANGEL Ondansetron HCl (Ondansetron Hcl 4 Mg/2 Ml Vial) 4 mg IVPUSH Q8H PRN PRN Reason: Nausea and Vomiting Pharmacy Consult (Consult Rx Vancomycin Dosing) 1 each MISCELLANE DAILY PRN PRN Reason: Consult order Pharmacy Consult (Consult Rx Perform Med Rec) 1 each MISCELLANE ONCE PRN PRN Reason: Consult order Sodium Chloride (0.9 % Sodium Chloride Flush 3 Ml Syringe) 3 ml IVFLUSH QSHIFT [facility] Last Admin: 12/22/22 08:14 Dose: 3 ml Documented By: ANGEL Thiamine HCl (Thiamine Hcl 100 Mg Tablet) 100 mg PO DAILY [facility] Last Admin: 12/22/22 08:10 Dose: 100 mg Documented By: ANGEL <Damari Sears PA-C - Last Filed: 12/22/22 10:06> Labs CBC & Chem 7: 12/22/22 07:08 12/22/22 07:08 <Damari Sears PA-C - Last Filed: 12/22/22 10:06> Labs: Laboratory Results - last 24 hr 12/22/22 12/22/22 12/22/22 07:08 07:08 07:08 MCV 76.8 L MCH 24.1 L MCHC 31.3 RDW 14.9 Plt Count 486 H MPV 10.0 Absolute Nucleated RBC 0.000 Nucleated RBC % (auto) 0.0 Anion Gap 12 Estim Creat Clear Calc 69.0 Estimated GFR > 60 Fasting Glucose 96 Calcium 8.9 Random Vancomycin 6.8 L <Damari Sears PA-C - Last Filed: 12/22/22 10:06> Microbiology Microbiology Results: Microbiology 12/20/22 16:46 Blood Culture - Preliminary Blood - Venous No growth after 24 hours. 12/20/22 16:46 Blood Culture - Preliminary Blood - Venous No growth after 24 hours. 12/21/22 08:23 Gram Stain - Final Forearm Left <Damari Sears PA-C - Last Filed: 12/22/22 10:06> Procedures Date of Service Date of Service: 12/22/22 <Damari Sears PA-C - Last Filed: 12/22/22 10:06> Progress Note: A&P Assessment and plan (1) Abscess of left arm: Status: Acute <Damari Sears PA-C - Last Filed: 12/22/22 10:06> Assessment and Plan: no new complaints I and D site - much less induration, some residual cellulitis dressings changed continue IV abx ffup cultures will follow <Mino Cheek MD - Last Filed: 12/22/22 11:51> Assessment and Plan: 32 year old female with history of IVDA who presented with abscess and cellulitis of left forearm. She underwent I&D at bedside yesterday. She would like shower; therefore will return for dressing change later today. Cont antibiotics. Cultures pending. Has hx of cellulitis and foreign body in right arm. No active signs of infection, can f/u in office for elective removal. <Damari Sears PA-C - Last Filed: 12/22/22 10:06> Time Spent With Patient Time: Total time managing care of this patient today ____ minutes. <Damari Sears PA-C - Last Filed: 12/22/22 10:06> Quality Stroke Does the patient have a stroke diagnosis?: No <Damari Sears PA-C - Last Filed: 12/22/22 10:06> VTE Prior VTE?: No <Damari Sears PA-C - Last Filed: 12/22/22 10:06> VTE Risk Level:: Medical - low <Damari Sears PA-C - Last Filed: 12/22/22 10:06> VTE Device Contraindication: Treatment Not Indicated <Damari Sears PA-C - Last Filed: 12/22/22 10:06> VTE Drug Contraindication: Treatment Not Indicated <Damari Sears PA-C - Last Filed: 12/22/22 10:06>
--- NOTE | 2022-12-22 10:41 | MHC.RECOVRN ---
This technical writer and editor met w/ patient, patient was resting in dimly lit room, awake to verbal command. Patient reports feeling ok on methadone . Patient reports withdrawal s/s experienced around 4am, patient reports restless legs at 4am. Patient would like to stay at 30mg MTD, patient reports plans to myke off MTD entirely. Provider aware.
--- NOTE | 2022-12-22 12:02 | MHC.CM.PN ---
pt lives alone has no pcp no servceis at home is keyur soto pt to be seen by care team
[2022-12-22] MEDS: Ketorolac Tromethamine 30 MG/ML VIAL IVPUSH (15:06)
[2022-12-22 15:16] VITALS: BP 100/57; PULSE 71; RESP 17; TEMP 36; O2SAT 100
--- NOTE | 2022-12-22 16:06 | PM.DS ---
DS: Providers Provider Date of Service: 12/22/22 Date of admission: 12/20/22 20:30 Primary care physician: None Physician Consults: 12/20/22 20:31 Consult to General Surgery Routine Consulting Provider: Michelle Yoder Reason for consultation: Abscess, known needle in vein 12/20/22 23:18 Addiction Medicine Routine Consulting Provider: Addiction Covering Reason for consultation: heroin use disorder DS: Diagnosis Discharge Diagnosis (1) Abscess of left arm: Status: Acute DS: Summary Hospital Course Hospital Course: from initial hpi: 32-year-old female with pertinent history of heroin IV use disorder, currently on methadone who presents to the emergency department for evaluation of left upper extremity swelling, redness and pain.? Patient states she 1st noticed swelling below the left elbow few days ago.? It was associated with redness, warmth and pain.? Patient also complains of associated subjective fevers and chills.? She has been taking doxycycline for the last 3-4 days but states it has been worsening.? Patient denies similar complaints in the past.? States she last used IV drugs a while ago .? Patient denies chest discomfort, shortness of breath, palpitations, abdominal pain, changes in urinary or bowel habits. hospital course: patient was admitted for left upper extremity abscess and cellulitis in setting of ivda. she underwent I and D with copious pus, cultures pending. she was treated with vanc, blood culture no growth so far. RUE us was done which showed persistent needle, though, no clinical symptoms. can follow up with surgery as outpatinet for removal. for opiate dependence was conitnued on methadone. for chornic irond defeciency anemia was started on iron supplement. ideally, patient would stay until cultures back to ensure proper antibiotic coverage and avoid potential progression to sepsis. patient decided to leave AMA, she was aware of risks of doing so including . po mansi was sent to pharmacy. Time Spent with Patient Time attestation: Total time managing care of this patient today ____ minutes. Discharge coordination time: Greater than 30 minutes Quality: Safe Use of Opioids Does Pt have an Active Cancer Diagnosis on the Problem List?: No Quality: Stroke Does the patient have a stroke diagnosis?: No Physical Exam Vital Signs: Vital Signs: Last Vital Signs Temp 96.8 F 12/22/22 15:16 Pulse 71 12/22/22 15:16 Resp 17 12/22/22 15:16 BP 100/57 L 12/22/22 15:16 Pulse Ox 100 12/22/22 15:16 O2 Del Method Room Air 12/22/22 15:16 BMI result Body Mass Index 16.6 Const: General: comfortable, no acute distress and alert Orientation/consciousness: patient oriented x3 Resp: Effort & Inspection: normal respiratory effort Skin: Other: warm and dry Neuro: General: patient oriented x3 and moves all extremities Extrem: Other: left upper extremity- dressing dry and intact to forearm DS: Data Data Completed and Pending Labs on day of discharge: Laboratory Results - last 24 hr 12/22/22 12/22/22 12/22/22 07:08 07:08 07:08 WBC 5.9 RBC 4.53 Hgb 10.9 L Hct 34.8 L MCV 76.8 L MCH 24.1 L MCHC 31.3 RDW 14.9 Plt Count 486 H MPV 10.0 Absolute Nucleated RBC 0.000 Nucleated RBC % (auto) 0.0 Sodium 140 Potassium 5.1 Chloride 107 Carbon Dioxide 26 Anion Gap 12 BUN 24 H Creatinine 0.83 Estim Creat Clear Calc 69.0 Estimated GFR > 60 Fasting Glucose 96 Calcium 8.9 Random Vancomycin 6.8 L Preliminary micro results at discharge 12/21/22 08:23 Routine Culture - Preliminary Forearm Left Streptococcus pyogenes (Grp A) Staphylococcus aureus 12/20/22 16:46 Blood Culture - Preliminary Blood - Venous No growth after 24 hours. 12/20/22 16:46 Blood Culture - Preliminary Blood - Venous No growth after 24 hours. Discharge Plan Discharge Anticipated Discharge Date/Time: 12/22/22 16:05 Patient Disposition: Left Against Medical Advice Discharge Diagnosis: abscess Referrals: Physician,None [Primary Care Provider] - 1 Week Michelle Yoder MD [Physician] - 1 Week Discharge Medications: Continued epinephrine [EpiPen 2-Isaak] 0.3 mg/0.3 mL auto-injector 0.3 mg IM Q4H PRN (Reason: anaphylaxis) Qty: 2 0RF methadone 10 mg Tablet 25 mg PO DAILY multivitamin [Multivites] Tablet 1 tab PO DAILY thiamine HCl (vitamin B1) 100 mg Tablet 100 mg PO DAILY melatonin 3 mg Tablet 3 mg PO BEDTIME PRN (Reason: Insomnia) diphenhydramine HCl [Diphedryl Allergy] 25 mg Capsule 50 mg PO BEDTIME PRN (Reason: Insomnia) folic acid 1 mg Tablet 1 mg PO DAILY magnesium oxide 400 mg magnesium Tablet 400 mg PO DAILY doxycycline monohydrate 100 mg capsule 100 mg PO BID 7 Days Qty: 14 0RF Discharge Orders: Discharge Order (Routine); Ordered 12/22/22 Ordered By: Heriberto Mares Diet: Advance to usual diet Activity on Discharge: As tolerated Care Plan Goals: recovery Health Concerns: abscess Plan of Treatment: follow up surgery, abx as prescribed, no drugs Assessment: see above
--- NOTE | 2022-12-22 16:29 | HO.ADDICTPRO ---
Subjective Subjective Date of Service: 12/22/22 Reason For Visit: Abscess Interim History: Patient seen in follow up--upon entering room, patient being provided discharge instructions by RN. Patient initiated discharge. Plans to go to in the morning to continue methadone taper. Patient did not cite any reason for wishing to leave prior to completing treatment, stating ?I am just ready?. Pleasant affect, future oriented. Denies any withdrawal symptoms. Risk reduction and overdose prevention discussion. Patient reports that she has Narcan. 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 Her friend is present in the room and will be providing transportation. Review of Systems Constitutional: Reports as per HPI and Reports no additional constitutional complaints Mental Status Exam Mental Status Exam Patient Appearance: Well Grooomed and Appropriate Level of Consciousness: Awake, Appropriate and Alert Patient Behavior: Appropriate and Cooperative Affect Description: Calm Diagnostics Vital Signs (24Hr): Vital Signs - 24 hr 12/21/22 19:55 12/22/22 03:15 12/22/22 07:36 Temperature 98.4 F 97.4 F 97.8 F Pulse Rate 77 62 72 Respiratory Rate 18 16 16 Blood Pressure 98/59 L 101/58 L 101/53 L Pulse Oximetry 97 97 99 Oxygen Delivery Method Room Air Room Air Room Air 12/22/22 15:16 Temperature 96.8 F Pulse Rate 71 Respiratory Rate 17 Blood Pressure 100/57 L Pulse Oximetry 100 Oxygen Delivery Method Room Air BMI result Body Mass Index 16.6 Labs 12/22/22 07:08 12/22/22 07:08 Labs: Laboratory Results - last 48 hr 12/20/22 12/20/22 12/20/22 16:46 16:46 16:46 WBC 11.5 H RBC 5.03 Hgb 12.1 Hct 38.1 MCV 75.7 L MCH 24.1 L MCHC 31.8 RDW 14.9 Plt Count 543 H D MPV 9.4 Immature Gran % (Auto) 0.4 Neut % (Auto) 81.3 H Lymph % (Auto) 10.5 L [place] % (Auto) 7.2 Eos % (Auto) 0.3 Baso % (Auto) 0.3 Lymph # (Auto) 1.2 [place] # (Auto) 0.8 Eos # (Auto) 0.0 Baso # (Auto) 0.0 Abs Immat Gran (auto) 0.05 H Absolute Neuts (auto) 9.4 H Absolute Nucleated RBC 0.000 Nucleated RBC % (auto) 0.0 Sodium 136 Potassium 4.5 D Chloride 100 Carbon Dioxide 26 Anion Gap 15 BUN 10 Creatinine 0.81 Estim Creat Clear Calc TNP Estimated GFR > 60 Random Glucose 128 H Fasting Glucose Lactic Acid 1.6 Calcium 9.8 Magnesium 2.2 Iron TIBC % Saturation Unsat Iron Binding Ferritin Total Bilirubin 0.6 AST 13 ALT 6 Alkaline Phosphatase 112 Total Protein 8.8 H Albumin 4.0 Beta HCG, Quant Random Vancomycin Urine Opiates Screen Urine Fentanyl Screen Ur Barbiturates Screen Ur Phencyclidine Scrn Ur Amphetamines Screen U Benzodiazepines Scrn Urine Cocaine Screen U Marijuana (THC) Screen COVID-19 (ANGIE) [facility] 12/20/22 12/20/22 12/20/22 22:14 22:21 22:57 WBC RBC Hgb Hct MCV MCH MCHC RDW Plt Count MPV Immature Gran % (Auto) Neut % (Auto) Lymph % (Auto) [place] % (Auto) Eos % (Auto) Baso % (Auto) Lymph # (Auto) [place] # (Auto) Eos # (Auto) Baso # (Auto) Abs Immat Gran (auto) Absolute Neuts (auto) Absolute Nucleated RBC Nucleated RBC % (auto) Sodium Potassium Chloride Carbon Dioxide Anion Gap BUN Creatinine Estim Creat Clear Calc Estimated GFR Random Glucose Fasting Glucose Lactic Acid Calcium Magnesium Iron TIBC % Saturation Unsat Iron Binding Ferritin Total Bilirubin AST ALT Alkaline Phosphatase Total Protein Albumin Beta HCG, Quant < 2 Random Vancomycin Urine Opiates Screen Not Detected Urine Fentanyl Screen POSITIVE H Ur Barbiturates Screen Not Detected Ur Phencyclidine Scrn Not Detected Ur Amphetamines Screen Not Detected U Benzodiazepines Scrn POSITIVE H Urine Cocaine Screen Not Detected U Marijuana (THC) Screen Not Detected COVID-19 (ANGIE) Negative [facility] See Note 12/21/22 12/21/22 12/21/22 06:27 06:27 06:27 WBC 10.8 RBC 4.65 Hgb 11.3 L Hct 35.2 L MCV 75.7 L MCH 24.3 L MCHC 32.1 RDW 14.9 Plt Count 502 H MPV 9.3 L Immature Gran % (Auto) 0.4 Neut % (Auto) 74.6 H Lymph % (Auto) 16.6 L [place] % (Auto) 7.2 Eos % (Auto) 0.9 Baso % (Auto) 0.3 Lymph # (Auto) 1.8 [place] # (Auto) 0.8 Eos # (Auto) 0.1 Baso # (Auto) 0.0 Abs Immat Gran (auto) 0.04 H Absolute Neuts (auto) 8.0 Absolute Nucleated RBC 0.000 Nucleated RBC % (auto) 0.0 Sodium 139 Potassium 4.4 Chloride 104 Carbon Dioxide 28 Anion Gap 11 L BUN 19 H Creatinine 0.81 0.81 Estim Creat Clear Calc 70.7 70.7 Estimated GFR > 60 > 60 Random Glucose 93 Fasting Glucose Lactic Acid Calcium 9.3 Magnesium Iron 15 L TIBC 253 % Saturation 6 L Unsat Iron Binding 238 Ferritin 102 Total Bilirubin AST ALT Alkaline Phosphatase Total Protein Albumin Beta HCG, Quant Random Vancomycin Urine Opiates Screen Urine Fentanyl Screen Ur Barbiturates Screen Ur Phencyclidine Scrn Ur Amphetamines Screen U Benzodiazepines Scrn Urine Cocaine Screen U Marijuana (THC) Screen COVID-19 (ANGIE) COVID-19 Clin Com 12/22/22 12/22/22 12/22/22 07:08 07:08 07:08 WBC 5.9 RBC 4.53 Hgb 10.9 L Hct 34.8 L MCV 76.8 L MCH 24.1 L MCHC 31.3 RDW 14.9 Plt Count 486 H MPV 10.0 Immature Gran % (Auto) Neut % (Auto) Lymph % (Auto) [place] % (Auto) Eos % (Auto) Baso % (Auto) Lymph # (Auto) [place] # (Auto) Eos # (Auto) Baso # (Auto) Abs Immat Gran (auto) Absolute Neuts (auto) Absolute Nucleated RBC 0.000 Nucleated RBC % (auto) 0.0 Sodium 140 Potassium 5.1 Chloride 107 Carbon Dioxide 26 Anion Gap 12 BUN 24 H Creatinine 0.83 Estim Creat Clear Calc 69.0 Estimated GFR > 60 Random Glucose Fasting Glucose 96 Lactic Acid Calcium 8.9 Magnesium Iron TIBC % Saturation Unsat Iron Binding Ferritin Total Bilirubin AST ALT Alkaline Phosphatase Total Protein Albumin Beta HCG, Quant Random Vancomycin 6.8 L Urine Opiates Screen Urine Fentanyl Screen Ur Barbiturates Screen Ur Phencyclidine Scrn Ur Amphetamines Screen U Benzodiazepines Scrn Urine Cocaine Screen U Marijuana (THC) Screen COVID-19 (ANGIE) COVID-19 Clin Com Imaging Radiology Impressions: ITS Impressions Forearm CT 12/21/22 08:02 IMPRESSION: Diffuse cellulitis involving the proximal left forearm. No air-fluid level seen to suspect any abscess. Medications Allergies Allergies Allergy/AdvReac Type Severity Reaction Status Date / Time Penicillins [PENICILLINS] Allergy Severe ANAPHYLAXIS Verified 10/27/22 22:14 soap [SOAP] Allergy Intermediate ITCHING Verified 10/27/22 22:14 aspirin [ASA] Allergy Unknown ANAPHYLAXIS Verified 10/27/22 22:14 cat dander [cats] Allergy Unknown moderately Verified 10/27/22 22:14 severe latex [LATEX] Allergy Unknown ANAPHYLAXIS Verified 10/27/22 22:14 shellfish derived Allergy Unknown Unknown Verified 10/27/22 22:14 tramadol [TRAMADOL] Allergy Unknown HIVES, Rash Verified 10/27/22 22:14 Assessment & Plan Assessment & Plan (1) Opioid use disorder: Status: Acute Code(s): F11.90 - Opioid use, unspecified, uncomplicated Assessment and Plan: provided with last dose letter harm reduction discussion Total time managing care of this patient today __15__ minutes.
== END 2022-12-22 16:18 | disposition left against medical advice (07) | DRG 383 ==
LOC: HO.ED 23:48 → HO.EDOVER 12-21 00:07 → HO.S3 12-21 13:17
PROVIDERS: Physician Assistant; Admitting Provider Student in an Organized Health Care Education/Training Program; Emergency Provider Student in an Organized Health Care Education/Training Program; Visit Provider Internal Medicine
DX: L02.414 Cutaneous abscess of left upper limb (principal); F11.20 Opioid dependence, uncomplicated; D50.9 Iron deficiency anemia, unspecified; F19.20 Other psychoactive substance dependence, uncomplicated; M79.5 Residual foreign body in soft tissue; L03.114 Cellulitis of left upper limb; Z20.822 Contact with and (suspected) exposure to COVID-19; Z91.040 Latex allergy status; Z88.0 Allergy status to penicillin; Z88.5 Allergy status to narcotic agent; Z88.6 Allergy status to analgesic agent; Z79.899 Other long term (current) drug therapy
CPT/HCPCS: 36415; 73200; 76882; 80048; 80053; 80202; 80307; 82565; 82728; 83540; 83605; 83735; 84702; 85025; 85027; 87040; 87070; 87077; 87147; 87186; 87205; 87635; 99221; 99285; J0692; J1200; J1885; J3370; J3371

== ENCOUNTER 2022-12-31 19:10 | Inpatient (IN) | payer OTHER, SELFPAY ==
[2022-12-31 19:22] VITALS: BP 126/76; PULSE 90; RESP 18; TEMP 36.7; O2SAT 100; BMI 18.0
--- NOTE | 2022-12-31 19:25 | ED_ITS ---
HPI - Skin/Abscess/Foreign Bdy General Chief complaint: Skin/Abscess/Foreign Body <LAINE Kimble - Last Filed: 12/31/22 19:27> Stated complaint: R hand pain, no injury <LAINE Kimble - Last Filed: 12/31/22 19:2 7> Time Seen by Provider: 12/31/22 22:43 <LAINE Kimble - Last Filed: 12/31/22 19:27> Source: patient, RN notes reviewed and old records reviewed <Valdemar Raman - Last Filed: 01/01/23 00:52> Mode of arrival: ambulatory <Valdemar Raman - Last Filed: 01/01/23 00:52> Limitations: no limitations <Valdemar Raman - Last Filed: 01/01/23 00:52> History of Present Illness HPI narrative: 32-year-old female with past medical history significant for opioid use disorder, recent admission for left forearm abscess presents for evaluation of nausea, chills and diarrhea Patient was admitted here on 12/20/2022 for left forearm cellulitis and abscess. She had an incision drainage by General surgery the following day She was started on IV antibiotics and ultimately left against medical advice on 12/22/2022 Patient then went to [facility] and was discharged a few days ago per her report She states that for the last 2 days she has had subjective chills, nausea and diarrhea and she felt this was due to continued infection/cellulitis The patient's blood cultures from her last admission were negative. She states that she has not been on antibiotics for the last 4 days <Valdemar Raman - Last Filed: 01/01/23 00:52> Related Data Home medications: Home Medications Medication Instructions Recorded Confirmed No Known Home Meds 01/01/23 01/01/23 <LAINE Kimble - Last Filed: 12/31/22 19:27> Allergies/Adverse reactions: Allergies Allergy/AdvReac Type Severity Reaction Status Date / Time Penicillins [PENICILLINS] Allergy Severe ANAPHYLAXIS Verified 10/27/22 22:14 soap [SOAP] Allergy Intermediate ITCHING Verified 10/27/22 22:14 aspirin [ASA] Allergy Unknown ANAPHYLAXIS Verified 10/27/22 22:14 cat dander [cats] Allergy Unknown moderately Verified 10/27/22 22:14 severe latex [LATEX] Allergy Unknown ANAPHYLAXIS Verified 10/27/22 22:14 shellfish derived Allergy Unknown Unknown Verified 10/27/22 22:14 tramadol [TRAMADOL] Allergy Unknown HIVES, Rash Verified 10/27/22 22:14 <LAINE Kimble - Last Filed: 12/31/22 19:27> Review of Systems Constitutional: Constitutional: Reports as per HPI, Denies fatigue, Denies fever(s) and Denies headache(s) <Valdemar Raman - Last Filed: 01/01/23 00:52> ENT: Denies headache(s) <Valdemar Raman - Last Filed: 01/01/23 00:52> Cardiovascular: Cardiovascular: Denies chest pain and Denies dyspnea <Valdemar Raman - Last Filed: 01/01/23 00:52> Respiratory: Respiratory: Denies cough and Denies dyspnea <Valdemar Raman - Last Filed: 01/01/23 00:52> Gastrointestinal: Gastrointestinal: Denies abdominal pain, Denies constipation and Denies vomiting <Valdemar Raman - Last Filed: 01/01/23 00:52> Genitourinary: Genitourinary: Denies dysuria <Valdemar Raman - Last Filed: 01/01/23 00:52> Integumentary/Breasts: Skin/Breast: Reports erythema, Reports rash and Reports wounds <Valdemar Raman - Last Filed: 01/01/23 00:52> Neurologic: Denies headache(s) and Denies focal weakness <Valdemar Raman - Last Filed: 01/01/23 00:52> Endocrine: Endocrine: Denies fatigue <Valdemar Raman - Last Filed: 00:52> PMFSH Past Medical History Medical History: Medical History (Updated 01/01/23 @ 00:50 by Valdemar Raman) Abscess of left arm Left arm cellulitis Substance abuse <LAINE Kimble - Last Filed: 12/31/22 19:27> Social History Social History: Social History Household Members: None Housing: Apartment Do you presently have visiting nurse or other home services: No Alcohol intake: former Patient Tobacco Use Status: Never used Tobacco Substance Use Type: Heroin and IV Drugs Advance Directives: No Advance Directives Information Provided: Yes service: No <LAINE Kimble - Last Filed: 12/31/22 19:27> Physical Exam Vital Signs: Vital Signs: Last Vital Signs Temp 98.3 F 01/01/23 01:26 Pulse 64 01/01/23 01:26 Resp 10 L 01/01/23 01:26 BP 97/53 L 01/01/23 01:26 Pulse Ox 97 01/01/23 01:26 O2 Del Method Room Air 01/01/23 01:26 BMI result Body Mass Index 18.0 <LAINE Kimble - Last Filed: 12/31/22 19:27> Vital Signs: Last Vital Signs Temp 98.3 F 01/01/23 01:26 Pulse 64 01/01/23 01:26 Resp 10 L 01/01/23 01:26 BP 97/53 L 01/01/23 01:26 Pulse Ox 97 01/01/23 01:26 O2 Del Method Room Air 01/01/23 01:26 BMI result Body Mass Index 18.0 <Valdemar Raman - Last Filed: 01/01/23 00:52> Vital Signs: Last Vital Signs Temp 98.3 F 01/01/23 01:26 Pulse 64 01/01/23 01:26 Resp 10 L 01/01/23 01:26 BP 97/53 L 01/01/23 01:26 Pulse Ox 97 01/01/23 01:26 O2 Del Method Room Air 01/01/23 01:26 BMI result Body Mass Index 18.0 <Yinka Mendoza MD - Last Filed: 01/01/23 07:06> Const: General: healthy appearing, comfortable, no acute distress, alert and awake <Valdemar Raman - Last Filed: 01/01/23 00:52> Nutritional Appearance: well nourished <Valdemar Raman - Last Filed: 01/01/23 00:52> Orientation/consciousness: patient oriented x3 <Valdemar Raman - Last Filed: 01/01/23 00:52> HEENT: Head: Yes normocephalic and Yes atraumatic < Last Filed: 01/01/23 00:52> Throat: Yes posterior oropharynx normal < Filed: 01/01/23 00:52> Eyes: Eyelids: Yes eyelids normal < Last Filed: 01/01/23 00:52> Conjunctivae: conjunctivae normal < Last Filed: 01/01/23 00:52> Sclerae: sclerae normal < Last Filed: 01/01/23 00:52> Corneas: corneas normal < Last Filed: 01/01/23 00:52> Pupils: Equal, round and reactive pupils present < Filed: 01/01/23 00:52> EOM: EOMs intact bilaterally < Last Filed: 01/01/23 00:52> Neck: Neck: Yes full ROM < Filed: 01/01/23 00:52> Resp: Effort & Inspection: normal respiratory effort, able to speak in complete sentences, no audible wheezes and not labored < Last Filed: 01/01/23 00:52> Auscultation: clear to auscultation bilaterally < Last Filed: 01/01/23 00:52> Cardio: Rate: regular rate < Last Filed: 01/01/23 00:52> Rhythm: regular rhythm < Last Filed: 01/01/23 00:52> GI: Inspection: No distended < Last Filed: 01/01/23 00:52> Palpation (GI): Soft to palpation, not firm, nontender, no guarding and not rigid < Last Filed: 01/01/23 00:52> Auscultation: normoactive bowel sounds < Last Filed: 01/01/23 00:52> Skin: Other: Patient's previous incision and drainage wounds appear to be healing quite well to left forearm, there is no surrounding erythema or increased warmth. Patient has scar tissue to the right forearm with track mcdonald. No significant erythema or increased warmth. Patient has a small, 1 cm circular open wounds to the knuckle of the left 3rd finger over the PIP joint. There is some purulent drainage within the open wound. No significant edema <Valdemar Raman - Last Filed: 01/01/23 00:52> Neuro: General: patient oriented x3 <Valdemar Raman - Last Filed: 01/01/23 00:52> Cranial nerves: Yes CN's II-XII intact bilaterally, Yes Equal, round and reactive pupils present and Yes Bilaterally intact EOM present <Valdemar Raman - Last Filed: 01/01/23 00:52> Cognition (Neuro): normal cognition <Valdemar Raman Last Filed: 01/01/23 00:52> Course Course Course Narrative: This is an RME: Additional HPI, ROS, PE not included below will be deferred to primary provider. 32-year-old female history of IV drug abuse, clean for few weeks presents with worsening cellulitis left arm, patient was hospitalized had her abscess drained by General surgery however cellulitis worsening, low-grade fevers at home, reports she left against medical advice. Physical exam difficult to examine patient's upper extremities as she is fully clothed. Plan basic labs <LAINE Kimble - Last Filed: 12/31/22 19:27> Reevaluation(s) Reevaluation #1: Patient reported nursing staff that she would like to speak to crisis. She states that she is depressed but denies suicidality <Valdemar Raman - Last Filed: 01/01/23 00:52> Time: 23:27 <Valdemar Mandel Last Filed: 01/01/23 00:52> Reevaluation #2: The care team consult on the patient and then she began to state that she was suicidal. At this time the consult was canceled as the patient will require a full care team evaluation. She will require further toxicology labs <Valdemar Raman - Last Filed: 01/01/23 00:52> Time: 00:47 <Valdemar Raman - Last Filed: 01/01/23 00:52> Reevaluation #3: Physician observation: Uneventful night awaiting a full evaluation. Patient needs time to see if patient improves or will need further psychiatric admission <Yinka Mendoza MD - Last Filed: 01/01/23 07:06> Time: 07:06 <Yinka Mendoza MD - Last Filed: 01/01/23 07:06> Medications Administered Discontinued Medications Generic Name Dose Route Start Last Admin Trade Name Freq PRN Reason Stop Dose Admin Doxycycline Hyclate 100 mg/ 250 mls @ 166.67 mls/hr 12/31/22 22:56 01/01/23 01:50 Sodium Chloride IV 01/01/23 00:25 Infused ONCE ONE Infusion Lorazepam 2 mg 01/01/23 02:42 01/01/23 02:47 Lorazepam 1 Mg Tablet PO 01/01/23 02:43 2 mg ONCE STA Administration <LAINE Kimble - Last Filed: 12/31/22 19:27> Medications Administered Discontinued Medications Generic Name Dose Route Start Last Admin Trade Name Freq PRN Reason Stop Dose Admin Doxycycline Hyclate 100 mg/ 250 mls @ 166.67 mls/hr 12/31/22 22:56 01/01/23 01:50 Sodium Chloride IV 01/01/23 00:25 Infused ONCE ONE Infusion Lorazepam 2 mg 01/01/23 02:42 01/01/23 02:47 Lorazepam 1 Mg Tablet PO 01/01/23 02:43 2 mg ONCE STA Administration <Valdemar Raman - Last Filed: 01/01/23 00:52> Medications Administered Discontinued Medications Generic Name Dose Route Start Last Admin Trade Name Freq PRN Reason Stop Dose Admin Doxycycline Hyclate 100 mg/ 250 mls @ 166.67 mls/hr 12/31/22 22:56 01/01/23 01:50 Sodium Chloride IV 01/01/23 00:25 Infused ONCE ONE Infusion Lorazepam 2 mg 01/01/23 02:42 01/01/23 02:47 Lorazepam 1 Mg Tablet PO 01/01/23 02:43 2 mg ONCE STA Administration <Yinka Mendoza MD - Last Filed: 01/01/23 07:06> Medical Decision Making Medical Decision Making [facility] Narrative: 32-year-old female with history of IV drug abuse, last use earlier today presents for evaluation of chills and nausea. Her cellulitis was left forearm appears to be healing well, she does have a new wound to the left 3rd knuckle which is already open and draining purulent drainage. I do feel it is appropriate to treat this with antibiotics. I do not suspect the patient's symptoms are related to bacteremia as her wounds appear to be healing so well and she had negative blood cultures 10 days ago. Will swab her for influenza, repeat blood cultures were ordered today. She has no leukocytosis and her vital signs are within normal limits. She has had no objective fevers in the department <Valdemar Raman - Last Filed: 01/01/23 00:52> Differential Diagnosis Cellulitis Abscess IV drug abuse Viral syndrome Influenza <Valdemar Raman - Last Filed: 01/01/23 00:52> Lab Data [facility] Lab Attestation statement: I reviewed the patient's lab results. <Valdemar Raman - Last Filed: 01/01/23 00:52> Result Diagrams: 12/31/22 21:08 12/31/22 21:08 <LAINE Kimble - Last Filed: 12/31/22 19:27> Labs: Lab Results 12/31/22 12/31/22 12/31/22 Range/Units 21:08 21:08 21:08 WBC 5.9 (4.8-10.8) X10*3/uL RBC 4.48 (4.20-5.50) X10*6/uL Hgb 10.9 L (12.0-16.0) g/dl Hct 33.5 L (37.0-47.0) % MCV 74.8 L (80.0-98.0) fL MCH 24.3 L (27.0-33.0) pg MCHC 32.5 (31.0-35.0) g/dl RDW 15.4 (11.0-16.0) % Plt Count 502 H (160-400) X10*3/uL MPV 9.6 (9.4-12.3) fL Immature Gran % (Auto) 0.2 (0.0-0.4) % Neut % (Auto) 63.0 (45-73) % Lymph % (Auto) 30.1 (20-40) % [place] % (Auto) 5.9 (2-11) % Eos % (Auto) 0.5 (0-4) % Baso % (Auto) 0.3 (0-2) % Lymph # (Auto) 1.8 (1.2-4.9) X10*3/uL [place] # (Auto) 0.4 (0.1-1.2) X10*3/uL Eos # (Auto) 0.0 (0.0-0.4) X10*3/uL Baso # (Auto) 0.0 (0.0-0.2) X10*3/uL Abs Immat Gran (auto) 0.01 (0.00-0.03) X10*3/uL Absolute Neuts (auto) 3.7 (2.0-8.3) x10*3/uL Absolute Nucleated RBC 0.000 (0.0-0.012) X10*3/uL Nucleated RBC % (auto) 0.0 (0.0-0.2) /100WBC Sodium 135 (135-145) mmol/L Potassium 4.0 D (3.3-5.1) mmol/L Chloride 98 (96-108) mmol/L Carbon Dioxide 28 (22-29) mmol/L Anion Gap 13 (12-20) BUN 12 (9-16) mg/dL Creatinine 0.73 (0.5-1.4) mg/dL Estim Creat Clear Calc 82.4 Estimated GFR > 60 Random Glucose 121 H (60-115) mg/dL Lactic Acid 0.6 (0.5-2.0) mmol/L Calcium 9.6 D (8.4-10.2) mg/dL Magnesium 2.2 (1.6-2.6) mg/dL Total Bilirubin 0.4 (0.0-1.0) mg/dL AST 36 H (5-31) U/L ALT 20 (0-31) U/L Alkaline Phosphatase 109 (39-117) U/L Total Protein 8.6 H (6.5-8.0) g/dL Albumin 4.3 (3.5-5.0) g/dL Beta HCG, Quant < 2 mIU/mL Urine Color Urine Appearance Urine pH (5.0-9.0) Ur Specific [place] (1.005-1.025) Urine Protein (Neg-Trace) mg/dL Urine Glucose (UA) (Negative) mg/dL Urine Ketones (Negative) mg/dL Urine Blood (Negative) Urine Nitrite (Negative) Ur Leukocyte Esterase (Negative) Urine RBC (0-2) /HPF Urine WBC (0-5) /HPF Ur Squamous Epith Cells (0-2) /HPF Urine Bacteria (None Seen) Hyaline Casts (0-2) /LPF Urine Test (NEGATIVE) Salicylates (15-30) mg/dL Urine Opiates Screen (Not Detect) Urine Fentanyl Screen (Not Detect) Acetaminophen (<30) mcg/mL Ur Barbiturates Screen (Not Detect) Ur Phencyclidine Scrn (Not Detect) Ur Amphetamines Screen (Not Detect) U Benzodiazepines Scrn (Not Detect) Urine Cocaine Screen (Not Detect) U Marijuana (THC) Screen (Not Detect) Ethyl Alcohol < 10 mg/dL COVID-19 (ANGIE) (Negative) COVID-19 Clin Com Influenza Type A (MARS) (Negative) Influenza Type B (MARS) (Negative) Influenza A & B Note 01/01/23 01/01/23 01/01/23 Range/Units 01:22 01:22 01:22 WBC (4.8-10.8) X10*3/uL RBC (4.20-5.50) X10*6/uL Hgb (12.0-16.0) g/dl Hct (37.0-47.0) % MCV (80.0-98.0) fL MCH (27.0-33.0) pg MCHC (31.0-35.0) g/dl RDW (11.0-16.0) % Plt Count (160-400) X10*3/uL MPV (9.4-12.3) fL Immature Gran % (Auto) (0.0-0.4) % Neut % (Auto) (45-73) % Lymph % (Auto) (20-40) % [place] % (Auto) (2-11) % Eos % (Auto) (0-4) % Baso % (Auto) (0-2) % Lymph # (Auto) (1.2-4.9) X10*3/uL [place] # (Auto) (0.1-1.2) X10*3/uL Eos # (Auto) (0.0-0.4) X10*3/uL Baso # (Auto) (0.0-0.2) X10*3/uL Abs Immat Gran (auto) (0.00-0.03) X10*3/uL Absolute Neuts (auto) (2.0-8.3) x10*3/uL Absolute Nucleated RBC (0.0-0.012) X10*3/uL Nucleated RBC % (auto) (0.0-0.2) /100WBC Sodium (135-145) mmol/L Potassium (3.3-5.1) mmol/L Chloride (96-108) mmol/L Carbon Dioxide (22-29) mmol/L Anion Gap (12-20) BUN (9-16) mg/dL Creatinine (0.5-1.4) mg/dL Estim Creat Clear Calc Estimated GFR Random Glucose (60-115) mg/dL Lactic Acid (0.5-2.0) mmol/L Calcium (8.4-10.2) mg/dL Magnesium (1.6-2.6) mg/dL Total Bilirubin (0.0-1.0) mg/dL AST (5-31) U/L ALT (0-31) U/L Alkaline Phosphatase (39-117) U/L Total Protein (6.5-8.0) g/dL Albumin (3.5-5.0) g/dL Beta HCG, Quant mIU/mL Urine Color Urine Appearance Urine pH (5.0-9.0) Ur Specific [place] (1.005-1.025) Urine Protein (Neg-Trace) mg/dL Urine Glucose (UA) (Negative) mg/dL Urine Ketones (Negative) mg/dL Urine Blood (Negative) Urine Nitrite (Negative) Ur Leukocyte Esterase (Negative) Urine RBC (0-2) /HPF Urine WBC (0-5) /HPF Ur Squamous Epith Cells (0-2) /HPF Urine Bacteria (None Seen) Hyaline Casts (0-2) /LPF Urine Test (NEGATIVE) Salicylates < 5.0 L (15-30) mg/dL Urine Opiates Screen (Not Detect) Urine Fentanyl Screen (Not Detect) Acetaminophen < 17 (<30) mcg/mL Ur Barbiturates Screen (Not Detect) Ur Phencyclidine Scrn (Not Detect) Ur Amphetamines Screen (Not Detect) U Benzodiazepines Scrn (Not Detect) Urine Cocaine Screen (Not Detect) U Marijuana (THC) Screen (Not Detect) Ethyl Alcohol mg/dL COVID-19 (ANGIE) Negative (Negative) COVID-19 Clin Com See Note Influenza Type A (MARS) Negative (Negative) Influenza Type B (MARS) Negative (Negative) Influenza A & B Note See Note 01/01/23 01/01/23 01/01/23 Range/Units 02:23 02:26 02:26 WBC (4.8-10.8) X10*3/uL RBC (4.20-5.50) X10*6/uL Hgb (12.0-16.0) g/dl Hct (37.0-47.0) % MCV (80.0-98.0) fL MCH (27.0-33.0) pg MCHC (31.0-35.0) g/dl RDW (11.0-16.0) % Plt Count (160-400) X10*3/uL MPV (9.4-12.3) fL Immature Gran % (Auto) (0.0-0.4) % Neut % (Auto) (45-73) % Lymph % (Auto) (20-40) % [place] % (Auto) (2-11) % Eos % (Auto) (0-4) % Baso % (Auto) (0-2) % Lymph # (Auto) (1.2-4.9) X10*3/uL [place] # (Auto) (0.1-1.2) X10*3/uL Eos # (Auto) (0.0-0.4) X10*3/uL Baso # (Auto) (0.0-0.2) X10*3/uL Abs Immat Gran (auto) (0.00-0.03) X10*3/uL Absolute Neuts (auto) (2.0-8.3) x10*3/uL Absolute Nucleated RBC (0.0-0.012) X10*3/uL Nucleated RBC % (auto) (0.0-0.2) /100WBC Sodium (135-145) mmol/L Potassium (3.3-5.1) mmol/L Chloride (96-108) mmol/L Carbon Dioxide (22-29) mmol/L Anion Gap (12-20) BUN (9-16) mg/dL Creatinine (0.5-1.4) mg/dL Estim Creat Clear Calc Estimated GFR Random Glucose (60-115) mg/dL Lactic Acid (0.5-2.0) mmol/L Calcium (8.4-10.2) mg/dL Magnesium (1.6-2.6) mg/dL Total Bilirubin (0.0-1.0) mg/dL AST (5-31) U/L ALT (0-31) U/L Alkaline Phosphatase (39-117) U/L Total Protein (6.5-8.0) g/dL Albumin (3.5-5.0) g/dL Beta HCG, Quant mIU/mL Urine Color Dark Yellow Urine Appearance Cloudy Urine pH 5.5 (5.0-9.0) Ur Specific [place] >= 1.030 H (1.005-1.025) Urine Protein Trace (Neg-Trace) mg/dL Urine Glucose (UA) Negative (Negative) mg/dL Urine Ketones Trace (Negative) mg/dL Urine Blood Trace H (Negative) Urine Nitrite Negative (Negative) Ur Leukocyte Esterase Trace H (Negative) Urine RBC 6-10 H (0-2) /HPF Urine WBC 11-20 H (0-5) /HPF Ur Squamous Epith Cells >20 (0-2) /HPF Urine Bacteria 3+ (None Seen) Hyaline Casts 0-2 (0-2) /LPF Urine Test NEGATIVE (NEGATIVE) Salicylates (15-30) mg/dL Urine Opiates Screen POSITIVE H (Not Detect) Urine Fentanyl Screen POSITIVE H (Not Detect) Acetaminophen (<30) mcg/mL Ur Barbiturates Screen Not Detected (Not Detect) Ur Phencyclidine Scrn Not Detected (Not Detect) Ur Amphetamines Screen Not Detected (Not Detect) U Benzodiazepines Scrn Not Detected (Not Detect) Urine Cocaine Screen POSITIVE H (Not Detect) U Marijuana (THC) Screen Not Detected (Not Detect) Ethyl Alcohol mg/dL COVID-19 (ANGIE) (Negative) COVID-19 [facility] Influenza Type A (MARS) (Negative) Influenza Type B (MARS) (Negative) Influenza A & B Note <LAINE Kimble - Last Filed: 12/31/22 19:27> Lab Results 12/31/22 12/31/22 12/31/22 Range/Units 21:08 21:08 21:08 WBC 5.9 (4.8-10.8) X10*3/uL RBC 4.48 (4.20-5.50) X10*6/uL Hgb 10.9 L (12.0-16.0) g/dl Hct 33.5 L (37.0-47.0) % MCV 74.8 L (80.0-98.0) fL MCH 24.3 L (27.0-33.0) pg MCHC 32.5 (31.0-35.0) g/dl RDW 15.4 (11.0-16.0) % Plt Count 502 H (160-400) X10*3/uL MPV 9.6 (9.4-12.3) fL Immature Gran % (Auto) 0.2 (0.0-0.4) % Neut % (Auto) 63.0 (45-73) % Lymph % (Auto) 30.1 (20-40) % [place] % (Auto) 5.9 (2-11) % Eos % (Auto) 0.5 (0-4) % Baso % (Auto) 0.3 (0-2) % Lymph # (Auto) 1.8 (1.2-4.9) X10*3/uL [place] # (Auto) 0.4 (0.1-1.2) X10*3/uL Eos # (Auto) 0.0 (0.0-0.4) X10*3/uL Baso # (Auto) 0.0 (0.0-0.2) X10*3/uL Abs Immat Gran (auto) 0.01 (0.00-0.03) X10*3/uL Absolute Neuts (auto) 3.7 (2.0-8.3) x10*3/uL Absolute Nucleated RBC 0.000 (0.0-0.012) X10*3/uL Nucleated RBC % (auto) 0.0 (0.0-0.2) /100WBC Sodium 135 (135-145) mmol/L Potassium 4.0 D (3.3-5.1) mmol/L Chloride 98 (96-108) mmol/L Carbon Dioxide 28 (22-29) mmol/L Anion Gap 13 (12-20) BUN 12 (9-16) mg/dL Creatinine 0.73 (0.5-1.4) mg/dL Estim Creat Clear Calc 82.4 Estimated GFR > 60 Random Glucose 121 H (60-115) mg/dL Lactic Acid 0.6 (0.5-2.0) mmol/L Calcium 9.6 D (8.4-10.2) mg/dL Magnesium 2.2 (1.6-2.6) mg/dL Total Bilirubin 0.4 (0.0-1.0) mg/dL AST 36 H (5-31) U/L ALT 20 (0-31) U/L Alkaline Phosphatase 109 (39-117) U/L Total Protein 8.6 H (6.5-8.0) g/dL Albumin 4.3 (3.5-5.0) g/dL Beta HCG, Quant < 2 mIU/mL Urine Color Urine Appearance Urine pH (5.0-9.0) Ur Specific [place] (1.005-1.025) Urine Protein (Neg-Trace) mg/dL Urine Glucose (UA) (Negative) mg/dL Urine Ketones (Negative) mg/dL Urine Blood (Negative) Urine Nitrite (Negative) Ur Leukocyte Esterase (Negative) Urine RBC (0-2) /HPF Urine WBC (0-5) /HPF Ur Squamous Epith Cells (0-2) /HPF Urine Bacteria (None Seen) Hyaline Casts (0-2) /LPF Urine Test (NEGATIVE) Salicylates (15-30) mg/dL Urine Opiates Screen (Not Detect) Urine Fentanyl Screen (Not Detect) Acetaminophen (<30) mcg/mL Ur Barbiturates Screen (Not Detect) Ur Phencyclidine Scrn (Not Detect) Ur Amphetamines Screen (Not Detect) U Benzodiazepines Scrn (Not Detect) Urine Cocaine Screen (Not Detect) U Marijuana (THC) Screen (Not Detect) Ethyl Alcohol < 10 mg/dL COVID-19 (ANGIE) (Negative) COVID-19 Clin Com Influenza Type A (MARS) (Negative) Influenza Type B (MARS) (Negative) Influenza A & B Note 01/01/23 01/01/23 01/01/23 Range/Units 01:22 01:22 01:22 WBC (4.8-10.8) X10*3/uL RBC (4.20-5.50) X10*6/uL Hgb (12.0-16.0) g/dl Hct (37.0-47.0) % MCV (80.0-98.0) fL MCH (27.0-33.0) pg MCHC (31.0-35.0) g/dl RDW (11.0-16.0) % Plt Count (160-400) X10*3/uL MPV (9.4-12.3) fL Immature Gran % (Auto) (0.0-0.4) % Neut % (Auto) (45-73) % Lymph % (Auto) (20-40) % [place] % (Auto) (2-11) % Eos % (Auto) (0-4) % Baso % (Auto) (0-2) % Lymph # (Auto) (1.2-4.9) X10*3/uL [place] # (Auto) (0.1-1.2) X10*3/uL Eos # (Auto) (0.0-0.4) X10*3/uL Baso # (Auto) (0.0-0.2) X10*3/uL Abs Immat Gran (auto) (0.00-0.03) X10*3/uL Absolute Neuts (auto) (2.0-8.3) x10*3/uL Absolute Nucleated RBC (0.0-0.012) X10*3/uL Nucleated RBC % (auto) (0.0-0.2) /100WBC Sodium (135-145) mmol/L Potassium (3.3-5.1) mmol/L Chloride (96-108) mmol/L Carbon Dioxide (22-29) mmol/L Anion Gap (12-20) BUN (9-16) mg/dL Creatinine (0.5-1.4) mg/dL Estim Creat Clear Calc Estimated GFR Random Glucose (60-115) mg/dL Lactic Acid (0.5-2.0) mmol/L Calcium (8.4-10.2) mg/dL Magnesium (1.6-2.6) mg/dL Total Bilirubin (0.0-1.0) mg/dL AST (5-31) U/L ALT (0-31) U/L Alkaline Phosphatase (39-117) U/L Total Protein (6.5-8.0) g/dL Albumin (3.5-5.0) g/dL Beta HCG, Quant mIU/mL Urine Color Urine Appearance Urine pH (5.0-9.0) Ur Specific [place] (1.005-1.025) Urine Protein (Neg-Trace) mg/dL Urine Glucose (UA) (Negative) mg/dL Urine Ketones (Negative) mg/dL Urine Blood (Negative) Urine Nitrite (Negative) Ur Leukocyte Esterase (Negative) Urine RBC (0-2) /HPF Urine WBC (0-5) /HPF Ur Squamous Epith Cells (0-2) /HPF Urine Bacteria (None Seen) Hyaline Casts (0-2) /LPF Urine Test (NEGATIVE) Salicylates < 5.0 L (15-30) mg/dL Urine Opiates Screen (Not Detect) Urine Fentanyl Screen (Not Detect) Acetaminophen < 17 (<30) mcg/mL Ur Barbiturates Screen (Not Detect) Ur Phencyclidine Scrn (Not Detect) Ur Amphetamines Screen (Not Detect) U Benzodiazepines Scrn (Not Detect) Urine Cocaine Screen (Not Detect) U Marijuana (THC) Screen (Not Detect) Ethyl Alcohol mg/dL COVID-19 (ANGIE) Negative (Negative) COVID-19 Clin Com See Note Influenza Type A (MARS) Negative (Negative) Influenza Type B (MARS) Negative (Negative) Influenza A & B Note See Note 01/01/23 01/01/23 01/01/23 Range/Units 02:23 02:26 02:26 WBC (4.8-10.8) X10*3/uL RBC (4.20-5.50) X10*6/uL Hgb (12.0-16.0) g/dl Hct (37.0-47.0) % MCV (80.0-98.0) fL MCH (27.0-33.0) pg MCHC (31.0-35.0) g/dl RDW (11.0-16.0) % Plt Count (160-400) X10*3/uL MPV (9.4-12.3) fL Immature Gran % (Auto) (0.0-0.4) % Neut % (Auto) (45-73) % Lymph % (Auto) (20-40) % [place] % (Auto) (2-11) % Eos % (Auto) (0-4) % Baso % (Auto) (0-2) % Lymph # (Auto) (1.2-4.9) X10*3/uL [place] # (Auto) (0.1-1.2) X10*3/uL Eos # (Auto) (0.0-0.4) X10*3/uL Baso # (Auto) (0.0-0.2) X10*3/uL Abs Immat Gran (auto) (0.00-0.03) X10*3/uL Absolute Neuts (auto) (2.0-8.3) x10*3/uL Absolute Nucleated RBC (0.0-0.012) X10*3/uL Nucleated RBC % (auto) (0.0-0.2) /100WBC Sodium (135-145) mmol/L Potassium (3.3-5.1) mmol/L Chloride (96-108) mmol/L Carbon Dioxide (22-29) mmol/L Anion Gap (12-20) BUN (9-16) mg/dL Creatinine (0.5-1.4) mg/dL Estim Creat Clear Calc Estimated GFR Random Glucose (60-115) mg/dL Lactic Acid (0.5-2.0) mmol/L Calcium (8.4-10.2) mg/dL Magnesium (1.6-2.6) mg/dL Total Bilirubin (0.0-1.0) mg/dL AST (5-31) U/L ALT (0-31) U/L Alkaline Phosphatase (39-117) U/L Total Protein (6.5-8.0) g/dL Albumin (3.5-5.0) g/dL Beta HCG, Quant mIU/mL Urine Color Dark Yellow Urine Appearance Cloudy Urine pH 5.5 (5.0-9.0) Ur Specific [place] >= 1.030 H (1.005-1.025) Urine Protein Trace (Neg-Trace) mg/dL Urine Glucose (UA) Negative (Negative) mg/dL Urine Ketones Trace (Negative) mg/dL Urine Blood Trace H (Negative) Urine Nitrite Negative (Negative) Ur Leukocyte Esterase Trace H (Negative) Urine RBC 6-10 H (0-2) /HPF Urine WBC 11-20 H (0-5) /HPF Ur Squamous Epith Cells >20 (0-2) /HPF Urine Bacteria 3+ (None Seen) Hyaline Casts 0-2 (0-2) /LPF Urine Test NEGATIVE (NEGATIVE) Salicylates (15-30) mg/dL Urine Opiates Screen POSITIVE H (Not Detect) Urine Fentanyl Screen POSITIVE H (Not Detect) Acetaminophen (<30) mcg/mL Ur Barbiturates Screen Not Detected (Not Detect) Ur Phencyclidine Scrn Not Detected (Not Detect) Ur Amphetamines Screen Not Detected (Not Detect) U Benzodiazepines Scrn Not Detected (Not Detect) Urine Cocaine Screen POSITIVE H (Not Detect) U Marijuana (THC) Screen Not Detected (Not Detect) Ethyl Alcohol mg/dL COVID-19 (ANGIE) (Negative) COVID-19 Clin Com Influenza Type A (MARS) (Negative) Influenza Type B (MARS) (Negative) Influenza A & B Note <Valdemar Lamine - Last Filed: 01/01/23 00:52> Lab Results 12/31/22 12/31/22 12/31/22 Range/Units 21:08 21:08 21:08 WBC 5.9 (4.8-10.8) X10*3/uL RBC 4.48 (4.20-5.50) X10*6/uL Hgb 10.9 L (12.0-16.0) g/dl Hct 33.5 L (37.0-47.0) % MCV 74.8 L (80.0-98.0) fL MCH 24.3 L (27.0-33.0) pg MCHC 32.5 (31.0-35.0) g/dl RDW 15.4 (11.0-16.0) % Plt Count 502 H (160-400) X10*3/uL MPV 9.6 (9.4-12.3) fL Immature Gran % (Auto) 0.2 (0.0-0.4) % Neut % (Auto) 63.0 (45-73) % Lymph % (Auto) 30.1 (20-40) % [place] % (Auto) 5.9 (2-11) % Eos % (Auto) 0.5 (0-4) % Baso % (Auto) 0.3 (0-2) % Lymph # (Auto) 1.8 (1.2-4.9) X10*3/uL [place] # (Auto) 0.4 (0.1-1.2) X10*3/uL Eos # (Auto) 0.0 (0.0-0.4) X10*3/uL Baso # (Auto) 0.0 (0.0-0.2) X10*3/uL Abs Immat Gran (auto) 0.01 (0.00-0.03) X10*3/uL Absolute Neuts (auto) 3.7 (2.0-8.3) x10*3/uL Absolute Nucleated RBC 0.000 (0.0-0.012) X10*3/uL Nucleated RBC % (auto) 0.0 (0.0-0.2) /100WBC Sodium 135 (135-145) mmol/L Potassium 4.0 D (3.3-5.1) mmol/L Chloride 98 (96-108) mmol/L Carbon Dioxide 28 (22-29) mmol/L Anion Gap 13 (12-20) BUN 12 (9-16) mg/dL Creatinine 0.73 (0.5-1.4) mg/dL Estim Creat Clear Calc 82.4 Estimated GFR > 60 Random Glucose 121 H (60-115) mg/dL Lactic Acid 0.6 (0.5-2.0) mmol/L Calcium 9.6 D (8.4-10.2) mg/dL Magnesium 2.2 (1.6-2.6) mg/dL Total Bilirubin 0.4 (0.0-1.0) mg/dL AST 36 H (5-31) U/L ALT 20 (0-31) U/L Alkaline Phosphatase 109 (39-117) U/L Total Protein 8.6 H (6.5-8.0) g/dL Albumin 4.3 (3.5-5.0) g/dL Beta HCG, Quant < 2 mIU/mL Urine Color Urine Appearance Urine pH (5.0-9.0) Ur Specific [place] (1.005-1.025) Urine Protein (Neg-Trace) mg/dL Urine Glucose (UA) (Negative) mg/dL Urine Ketones (Negative) mg/dL Urine Blood (Negative) Urine Nitrite (Negative) Ur Leukocyte Esterase (Negative) Urine RBC (0-2) /HPF Urine WBC (0-5) /HPF Ur Squamous Epith Cells (0-2) /HPF Urine Bacteria (None Seen) Hyaline Casts (0-2) /LPF Urine Test (NEGATIVE) Salicylates (15-30) mg/dL Urine Opiates Screen (Not Detect) Urine Fentanyl Screen (Not Detect) Acetaminophen (<30) mcg/mL Ur Barbiturates Screen (Not Detect) Ur Phencyclidine Scrn (Not Detect) Ur Amphetamines Screen (Not Detect) U Benzodiazepines Scrn (Not Detect) Urine Cocaine Screen (Not Detect) U Marijuana (THC) Screen (Not Detect) Ethyl Alcohol < 10 mg/dL COVID-19 (ANGIE) (Negative) COVID-19 Clin Com Influenza Type A (MARS) (Negative) Influenza Type B (MARS) (Negative) Influenza A & B Note 01/01/23 01/01/23 01/01/23 Range/Units 01:22 01:22 01:22 WBC (4.8-10.8) X10*3/uL RBC (4.20-5.50) X10*6/uL Hgb (12.0-16.0) g/dl Hct (37.0-47.0) % MCV (80.0-98.0) fL MCH (27.0-33.0) pg MCHC (31.0-35.0) g/dl RDW (11.0-16.0) % Plt Count (160-400) X10*3/uL MPV (9.4-12.3) fL Immature Gran % (Auto) (0.0-0.4) % Neut % (Auto) (45-73) % Lymph % (Auto) (20-40) % [place] % (Auto) (2-11) % Eos % (Auto) (0-4) % Baso % (Auto) (0-2) % Lymph # (Auto) (1.2-4.9) X10*3/uL [place] # (Auto) (0.1-1.2) X10*3/uL Eos # (Auto) (0.0-0.4) X10*3/uL Baso # (Auto) (0.0-0.2) X10*3/uL Abs Immat Gran (auto) (0.00-0.03) X10*3/uL Absolute Neuts (auto) (2.0-8.3) x10*3/uL Absolute Nucleated RBC (0.0-0.012) X10*3/uL Nucleated RBC % (auto) (0.0-0.2) /100WBC Sodium (135-145) mmol/L Potassium (3.3-5.1) mmol/L Chloride (96-108) mmol/L Carbon Dioxide (22-29) mmol/L Anion Gap (12-20) BUN (9-16) mg/dL Creatinine (0.5-1.4) mg/dL Estim Creat Clear Calc Estimated GFR Random Glucose (60-115) mg/dL Lactic Acid (0.5-2.0) mmol/L Calcium (8.4-10.2) mg/dL Magnesium (1.6-2.6) mg/dL Total Bilirubin (0.0-1.0) mg/dL AST (5-31) U/L ALT (0-31) U/L Alkaline Phosphatase (39-117) U/L Total Protein (6.5-8.0) g/dL Albumin (3.5-5.0) g/dL Beta HCG, Quant mIU/mL Urine Color Urine Appearance Urine pH (5.0-9.0) Ur Specific [place] (1.005-1.025) Urine Protein (Neg-Trace) mg/dL Urine Glucose (UA) (Negative) mg/dL Urine Ketones (Negative) mg/dL Urine Blood (Negative) Urine Nitrite (Negative) Ur Leukocyte Esterase (Negative) Urine RBC (0-2) /HPF Urine WBC (0-5) /HPF Ur Squamous Epith Cells (0-2) /HPF Urine Bacteria (None Seen) Hyaline Casts (0-2) /LPF Urine Test (NEGATIVE) Salicylates < 5.0 L (15-30) mg/dL Urine Opiates Screen (Not Detect) Urine Fentanyl Screen (Not Detect) Acetaminophen < 17 (<30) mcg/mL Ur Barbiturates Screen (Not Detect) Ur Phencyclidine Scrn (Not Detect) Ur Amphetamines Screen (Not Detect) U Benzodiazepines Scrn (Not Detect) Urine Cocaine Screen (Not Detect) U Marijuana (THC) Screen (Not Detect) Ethyl Alcohol mg/dL COVID-19 (ANGIE) Negative (Negative) COVID-19 Clin Com See Note Influenza Type A (MARS) Negative (Negative) Influenza Type B (MARS) Negative (Negative) Influenza A & B Note See Note 01/01/23 01/01/23 01/01/23 Range/Units 02:23 02:26 02:26 WBC (4.8-10.8) X10*3/uL RBC (4.20-5.50) X10*6/uL Hgb (12.0-16.0) g/dl Hct (37.0-47.0) % MCV (80.0-98.0) fL MCH (27.0-33.0) pg MCHC (31.0-35.0) g/dl RDW (11.0-16.0) % Plt Count (160-400) X10*3/uL MPV (9.4-12.3) fL Immature Gran % (Auto) (0.0-0.4) % Neut % (Auto) (45-73) % Lymph % (Auto) (20-40) % [place] % (Auto) (2-11) % Eos % (Auto) (0-4) % Baso % (Auto) (0-2) % Lymph # (Auto) (1.2-4.9) X10*3/uL [place] # (Auto) (0.1-1.2) X10*3/uL Eos # (Auto) (0.0-0.4) X10*3/uL Baso # (Auto) (0.0-0.2) X10*3/uL Abs Immat Gran (auto) (0.00-0.03) X10*3/uL Absolute Neuts (auto) (2.0-8.3) x10*3/uL Absolute Nucleated RBC (0.0-0.012) X10*3/uL Nucleated RBC % (auto) (0.0-0.2) /100WBC Sodium (135-145) mmol/L Potassium (3.3-5.1) mmol/L Chloride (96-108) mmol/L Carbon Dioxide (22-29) mmol/L Anion Gap (12-20) BUN (9-16) mg/dL Creatinine (0.5-1.4) mg/dL Estim Creat Clear Calc Estimated GFR Random Glucose (60-115) mg/dL Lactic Acid (0.5-2.0) mmol/L Calcium (8.4-10.2) mg/dL Magnesium (1.6-2.6) mg/dL Total Bilirubin (0.0-1.0) mg/dL AST (5-31) U/L ALT (0-31) U/L Alkaline Phosphatase (39-117) U/L Total Protein (6.5-8.0) g/dL Albumin (3.5-5.0) g/dL Beta HCG, Quant mIU/mL Urine Color Dark Yellow Urine Appearance Cloudy Urine pH 5.5 (5.0-9.0) Ur Specific [place] >= 1.030 H (1.005-1.025) Urine Protein Trace (Neg-Trace) mg/dL Urine Glucose (UA) Negative (Negative) mg/dL Urine Ketones Trace (Negative) mg/dL Urine Blood Trace H (Negative) Urine Nitrite Negative (Negative) Ur Leukocyte Esterase Trace H (Negative) Urine RBC 6-10 H (0-2) /HPF Urine WBC 11-20 H (0-5) /HPF Ur Squamous Epith Cells >20 (0-2) /HPF Urine Bacteria 3+ (None Seen) Hyaline Casts 0-2 (0-2) /LPF Urine Test NEGATIVE (NEGATIVE) Salicylates (15-30) mg/dL Urine Opiates Screen POSITIVE H (Not Detect) Urine Fentanyl Screen POSITIVE H (Not Detect) Acetaminophen (<30) mcg/mL Ur Barbiturates Screen Not Detected (Not Detect) Ur Phencyclidine Scrn Not Detected (Not Detect) Ur Amphetamines Screen Not Detected (Not Detect) U Benzodiazepines Scrn Not Detected (Not Detect) Urine Cocaine Screen POSITIVE H (Not Detect) U Marijuana (THC) Screen Not Detected (Not Detect) Ethyl Alcohol mg/dL COVID-19 (ANGIE) (Negative) COVID-19 Clin Com Influenza Type A (MARS) (Negative) Influenza Type B (MARS) (Negative) Influenza A & B Note <Yinka Mendoza MD - Last Filed: 01/01/23 07:06> Discharge Plan Discharge Clinical Impression: Cellulitis of finger of left hand, Opioid abuse, Suicidal ideation <LAINE Kimble - Last Filed: 12/31/22 19:27> Patient Disposition: Still a Patient <LAINE Kimble - Last Filed: 12/31/22 19:27> Prescriptions: No Action No Known Home Meds <LAINE Kimble - Last Filed: 12/31/22 19:27>
[2022-12-31 21:13] LABS: MANUAL DIFF FLAG NO
[2022-12-31 21:32] LABS: Lactic Acid 0.6 mmol/L (0.5-2.0)
[2022-12-31 21:36] LABS: Alanine Aminotransferase 20 U/L (0-31); Albumin Level 4.3 g/dL (3.5-5.0); Alkaline Phosphatase 109 U/L (39-117); Anion Gap 13 (12-20); Aspartate Amino Transferase 36 U/L (5-31); Bilirubin Total 0.4 mg/dL (0.0-1.0); Blood Urea Nitrogen 12 mg/dL (9-16); Calcium 9.6 mg/dL (8.4-10.2); Carbon Dioxide 28 mmol/L (22-29); Chloride 98 mmol/L (96-108); Creatinine Clr Calc Pharmacy 82.4; Estimated Glomerular Filt Rate > 60; Glucose Random 121 mg/dL (60-115); Magnesium 2.2 mg/dL (1.6-2.6); Sodium 135 mmol/L (135-145); Total Protein 8.6 g/dL (6.5-8.0)
[2022-12-31 21:46] LABS: Basophils Percent Auto 0.3 % (0-2); Eosinophils Percent Auto 0.5 % (0-4); Hematocrit 33.5 % (37.0-47.0); Hemoglobin 10.9 g/dl (12.0-16.0); Imm Gran Abs Auto 0.01 X10*3/uL (0.00-0.03); Imm Gran Pct Auto 0.2 % (0.0-0.4); Lymphocytes Absolute Auto 1.8 X10*3/uL (1.2-4.9); Lymphocytes Percent Auto 30.1 % (20-40); Mean Corpuscular HGB Conc 32.5 g/dl (31.0-35.0); Mean Corpuscular Hemoglobin 24.3 pg (27.0-33.0); Mean Corpuscular Volume 74.8 fL (80.0-98.0); Mean Platelet Volume 9.6 fL (9.4-12.3); Monocytes Absolute Auto 0.4 X10*3/uL (0.1-1.2); Monocytes Percent Auto 5.9 % (2-11); Neutrophils Absolute Auto 3.7 x10*3/uL (2.0-8.3); Platelet Count 502 X10*3/uL (160-400); Red Blood Count 4.48 X10*6/uL (4.20-5.50); Red Cell Distribution Width 15.4 % (11.0-16.0); White Blood Count 5.9 X10*3/uL (4.8-10.8)
[2022-12-31 22:25] VITALS: BP 117/85; PULSE 86; RESP 20; TEMP 37.2; O2SAT 97
--- NOTE | 2022-12-31 22:45 | PC.NURSE ---
this rn assumed care of pt at 2220. pt calm and cooperative. pt admits to heroin use and alcohol use this morning. vss. iv placed in L Ac. pt tolerated well. this rn discussed recent heroin use and iv placement with charger and security states it is this rn's discretion on whether or not to secure belongings
[2022-12-31] MEDS: Doxycycline Hyclate 100 MG in 0.9 % Sodium Chloride 250 ML 166.67 MG IV (23:11)
--- NOTE | 2022-12-31 23:17 | PC.NURSE ---
pt belongings secured and placed in locker 10 in pod. juhi rhonda ennis made aware. pt medicated according to mar with IV antibiotics. pt endorses to this rn feeling depressed. pt denies SI/ HI. pt reports no plan of self harm. pt reports recent issues with ex. pt reports feeling safe. this rn made juhi ennis aware of pt reports.
--- NOTE | 2023-01-01 | ECG_ITS ---
Test Reason : CHECK QT Blood Pressure : / mmHG Vent. Rate : 063 BPM Atrial Rate : 063 BPM P-R Int : 126 ms QRS Dur : 070 ms QT Int : 420 ms P-R-T Axes : 055 071 058 degrees QTc Int : 429 ms Normal sinus rhythm Normal ECG When compared with ECG of 08-JUN-2022 16:53, T wave inversion no longer evident in Anterior leads Referred By: Yinka Mendoza Electronically Signed By:DESI ELIZABETH
--- NOTE | 2023-01-01 00:55 | MHC.CARE ---
CARE Team met with pt for depression consult as pt requests to speak to crisis. Pt reports to this junior technical writer that she attempted suicide 2 days ago but would not elaborate. She admits to being an active user although declines recovery resources as she states I need psych treatment first . Pt now endorses SI with plan to OD. Pt reports she has been staying with a friend. CARE Team notified ED provider and a crisis assessment will be requested.
--- NOTE | 2023-01-01 01:19 | PC.NURSE ---
juhi ennis informed this rn that pt is now endorsing si. this rn informed nurse charge rn of pt statements of si. 1:[address] be in [address] until iv antibiotic is completed and pt can be transferred to pod
[2023-01-01 01:26] VITALS: BP 97/53; PULSE 64; RESP 10; TEMP 36.8; O2SAT 97
[2023-01-01 01:56] LABS: COVID-19 Test Negative (Negative); IDNOW Serial# 08D9AD1C; IDNOW Serial# BCCEAD1C; Influenza A Negative (Negative); Influenza B2 Negative (Negative)
[2023-01-01 02:12] LABS: HCG Quantitative < 2 mIU/mL
[2023-01-01 02:25] LABS: Acetaminophen LAB < 17 mcg/mL (<30); Salicylate < 5.0 mg/dL (15-30)
[2023-01-01 02:41] LABS: Appearance Urine Cloudy; Color Urine Dark Yellow; Glucose Urine UA Negative (Negative); Leukocyte Esterase Urine Trace (Negative); Nitrite Urine Negative (Negative); PH 5.5 (5.0-9.0); Specific Gravity - Urine >= 1.030 (1.005-1.025); UMIC TRIGGER UA YES; Urine Blood Trace (Negative); Urine Ketones Trace mg/dL (Negative); Urine Protein Trace mg/dL (Neg-Trace)
[2023-01-01 02:42] LABS: UPreg QC Valid YES; Urine Pregnancy NEGATIVE (NEGATIVE)
[2023-01-01] MEDS: LORazepam 1 MG TABLET 2 MG PO (02:47)
[2023-01-01 02:53] LABS: Amphetamine Screen Urine Not Detected (Not Detect); Barbiturates, Urine Not Detected (Not Detect); Benzodiazepines Screen Urine Not Detected (Not Detect); Cannabinoid Screen Urine Not Detected (Not Detect); Cocaine Screen Urine POSITIVE (Not Detect); Fentanyl, urine POSITIVE (Not Detect); Opiate Screen Urine POSITIVE (Not Detect); Phencyclidine Screen Urine Not Detected (Not Detect)
[2023-01-01 03:20] LABS: Bacteria Urine 3+ (None Seen); Hyaline Casts Urine 0-2 /LPF (0-2); Squamous Epithelial Cell Urine >20 /HPF (0-2)
[2023-01-01 06:20] LABS: Ethanol < 10 mg/dL
--- NOTE | 2023-01-01 06:42 | PC.NURSE ---
patient slept intermittently, no distress observed/reported, Ativan 2 mg po administered at 0242 with + effect, care consult ordered/pending evaluation for depression, med rec completed/off her medication for months, VSS, behavior non concerning, will continue to monitor.
--- NOTE | 2023-01-01 12:24 | MHC.CARE ---
Ronel Valdez with [facility] calls to report that patient was brought to the DCF office post discharge, upon arrival at the office, he flipped staff off and ran.
--- NOTE | 2023-01-01 13:03 | MHC.CARE ---
patient is an inpatient bed search/ pending placement at this facility.
[2023-01-01 19:45] VITALS: BP 111/62; PULSE 84; RESP 18; TEMP 36.6; O2SAT 98
--- NOTE | 2023-01-01 19:56 | MHC.CARE ---
CARE Team presented the pt with a CV and she signed it. About two hours later she recanted and asked to be let go. T/W asked the provider, LAINE Daigle, if the pt could go home and the provider stated no. The provider requested that the pt be placed on a 12a and have the doc Yaimawar sign the 12b, as the pt has been accepted to [facility] already. T/W filled out the section [address] Harris sign the 12a and 12b.
[2023-01-01 22:05] VITALS: BP 101/66; PULSE 70; RESP 18; TEMP 36.6; O2SAT 97
[2023-01-01] MEDS: hydrOXYzine HCL 25 MG TABLET PO (22:21)
[2023-01-01] MEDS: LORazepam 1 MG TABLET PO (23:50)
--- NOTE | 2023-01-02 04:45 | PC.ADMIT ---
Lauren Naylor, 32 F arrived to [facility] on 01/01/23 at 2200 from [facility] ED on a 12b for increased depression, SI with no plan. Patient reports increased depression and anxiety lately, having feelings of not wanting to be alive, but no further plans. Patient had previous admission 12/20 for left forearm abscess, received IV antibiotics, left AMA on 12/22. Went to [facility] following and d/c? days later. Shows little interest in admission process. Patient is homeless. Reports daily alcohol consumption of about 3 nips per day, heroin use (3 bundles) and 1/2PPD smoker. Upon admission, patient is denying SI, contracts for safety. On CIWA protocol Q4 hours. Patient scored 8 upon admission. Patient experiencing nausea, decreased sleep. No appetite changes. Denies AH/VH at this time. Vital signs stable. Provider notified of admission and patient placed on 15 minutes checks.
[2023-01-02 08:15] VITALS: BP 92/61; PULSE 68; RESP 16; TEMP 36.6; O2SAT 16
[2023-01-02 08:43] LABS: Estimated Average Glucose 97 mg/dL
[2023-01-02 08:59] LABS: Alanine Aminotransferase 16 U/L (0-31); Albumin Level 3.4 g/dL (3.5-5.0); Alkaline Phosphatase 84 U/L (39-117); Anion Gap 11 (12-20); Aspartate Amino Transferase 23 U/L (5-31); Bilirubin Total 0.3 mg/dL (0.0-1.0); Blood Urea Nitrogen 11 mg/dL (9-16); Calcium 9.2 mg/dL (8.4-10.2); Carbon Dioxide 25 mmol/L (22-29); Chloride 106 mmol/L (96-108); Cholesterol 139 mg/dL; Creatinine Clr Calc Pharmacy 84.7; Estimated Glomerular Filt Rate > 60; Glucose Fasting 90 mg/dL (60-99); HDL Cholesterol 52 mg/dL; LDL Cholesterol Calculated 75 mg/dl; Potassium 4.6 mmol/L (3.3-5.1); Sodium 137 mmol/L (135-145); Total Protein 7.1 g/dL (6.5-8.0); Triglycerides 61 mg/dL
[2023-01-02 09:27] LABS: Folate 13.1 ng/mL (> or = 4.0); Thyroid Stimulating Hormone 0.59 uIU/mL (0.32-4.0); Vitamin B12 356 pg/mL (200-900)
--- NOTE | 2023-01-02 10:01 | P.HPPS_ITS ---
HPI Date of Service: 01/02/23 Chief Complaint: SI Sources of Information: patient interviewed, chart reviewed and crisis/core team assessment reviewed HPI Subjective Notes: Conditional Voluntary Healthcare Proxy: No Guardianship: No Medical Problems Affecting Mental Status: Yes (opiate withdrawl) Narrative: 32 yo F presents for psych admit due to SI in setting of opiate use- left [facility] to go use opiate- had just started methadone but still had cravings, then had SI in addition to cellulitis which she got IV abiotics - in ER. Pt reports she is depressed and discouraged, denies prior psychiatric treatment, only been focused on substance use- Reports trouble sleeping low energy, apt has been ok, decreased interests, SI is not usual for her- has not made a Suicide attempt since 14yo Reports adopted, trauma hx- nightmares Past Psychiatric History: denies prior treatment with psychiatric medications Medical Evaluation Reviewed: Yes (was seen and treated in ER for cellulitis ? ) wounds seem to healing [facility] Medical History (Updated 01/01/23 @ 00:50 by Valdemar Raman) Abscess of left arm Left arm cellulitis Substance abuse Family History: adopted, reports hx of childhood trauma, with suicide attempt at 14 yo Social History: lives with a friend , reports this friend does not use substances Substance History: chronic heroin use, has hx of children raised by her mother Trauma History: does have hx Diagnostics Vital Signs (24Hr): Vital Signs - 24 hr 01/01/23 19:45 01/01/23 22:05 01/02/23 08:15 Temperature 98 F 97.9 F 97.8 F Pulse Rate 84 70 68 Respiratory Rate 18 18 16 Blood Pressure 111/62 101/66 92/61 Pulse Oximetry 98 97 16 L Oxygen Delivery Method Room Air Room Air Room Air BMI result Body Mass Index 18.0 Labs 12/31/22 21:08 01/02/23 08:01 Labs: Laboratory Results - last 48 hr 12/31/22 12/31/22 12/31/22 21:08 21:08 21:08 WBC 5.9 RBC 4.48 Hgb 10.9 L Hct 33.5 L MCV 74.8 L MCH 24.3 L MCHC 32.5 RDW 15.4 Plt Count 502 H MPV 9.6 Immature Gran % (Auto) 0.2 Neut % (Auto) 63.0 Lymph % (Auto) 30.1 [place] % (Auto) 5.9 Eos % (Auto) 0.5 Baso % (Auto) 0.3 Lymph # (Auto) 1.8 [place] # (Auto) 0.4 Eos # (Auto) 0.0 Baso # (Auto) 0.0 Abs Immat Gran (auto) 0.01 Absolute Neuts (auto) 3.7 Absolute Nucleated RBC 0.000 Nucleated RBC % (auto) 0.0 Sodium 135 Potassium 4.0 D Chloride 98 Carbon Dioxide 28 Anion Gap 13 BUN 12 Creatinine 0.73 Estim Creat Clear Calc 82.4 Estimated GFR > 60 Random Glucose 121 H Fasting Glucose Estimat Average Glucose Hemoglobin A1c % Lactic Acid 0.6 Calcium 9.6 D Magnesium 2.2 Total Bilirubin 0.4 AST 36 H ALT 20 Alkaline Phosphatase 109 Total Protein 8.6 H Albumin 4.3 Triglycerides Cholesterol LDL Cholesterol, Calc HDL Cholesterol Vitamin B12 Folate TSH Beta HCG, Quant < 2 Urine Color Urine Appearance Urine pH Ur Specific [place] Urine Protein Urine Glucose (UA) Urine Ketones Urine Blood Urine Nitrite Ur Leukocyte Esterase Urine RBC Urine WBC Ur Squamous Epith Cells Urine Bacteria Hyaline Casts Urine Test Salicylates Urine Opiates Screen Urine Fentanyl Screen Acetaminophen Ur Barbiturates Screen Ur Phencyclidine Scrn Ur Amphetamines Screen U Benzodiazepines Scrn Urine Cocaine Screen U Marijuana (THC) Screen Ethyl Alcohol < 10 COVID-19 (ANGIE) COVID-19 Clin Com Influenza Type A (MARS) Influenza Type B (MARS) Influenza A & B Note 01/01/23 01/01/23 01/01/23 01:22 01:22 01:22 WBC RBC Hgb Hct MCV MCH MCHC RDW Plt Count MPV Immature Gran % (Auto) Neut % (Auto) Lymph % (Auto) [place] % (Auto) Eos % (Auto) Baso % (Auto) Lymph # (Auto) [place] # (Auto) Eos # (Auto) Baso # (Auto) Abs Immat Gran (auto) Absolute Neuts (auto) Absolute Nucleated RBC Nucleated RBC % (auto) Sodium Potassium Chloride Carbon Dioxide Anion Gap BUN Creatinine Estim Creat Clear Calc Estimated GFR Random Glucose Fasting Glucose Estimat Average Glucose Hemoglobin A1c % Lactic Acid Calcium Magnesium Total Bilirubin AST ALT Alkaline Phosphatase Total Protein Albumin Triglycerides Cholesterol LDL Cholesterol, Calc HDL Cholesterol Vitamin B12 Folate TSH Beta HCG, Quant Urine Color Urine Appearance Urine pH Ur Specific [place] Urine Protein Urine Glucose (UA) Urine Ketones Urine Blood Urine Nitrite Ur Leukocyte Esterase Urine RBC Urine WBC Ur Squamous Epith Cells Urine Bacteria Hyaline Casts Urine Test Salicylates < 5.0 L Urine Opiates Screen Urine Fentanyl Screen Acetaminophen < 17 Ur Barbiturates Screen Ur Phencyclidine Scrn Ur Amphetamines Screen U Benzodiazepines Scrn Urine Cocaine Screen U Marijuana (THC) Screen Ethyl Alcohol COVID-19 (ANGIE) Negative COVID-19 Clin Com See Note Influenza Type A (MARS) Negative Influenza Type B (MARS) Negative Influenza A & B Note See Note 01/01/23 01/01/23 01/01/23 02:23 02:26 02:26 WBC RBC Hgb Hct MCV MCH MCHC RDW Plt Count MPV Immature Gran % (Auto) Neut % (Auto) Lymph % (Auto) [place] % (Auto) Eos % (Auto) Baso % (Auto) Lymph # (Auto) [place] # (Auto) Eos # (Auto) Baso # (Auto) Abs Immat Gran (auto) Absolute Neuts (auto) Absolute Nucleated RBC Nucleated RBC % (auto) Sodium Potassium Chloride Carbon Dioxide Anion Gap BUN Creatinine Estim Creat Clear Calc Estimated GFR Random Glucose Fasting Glucose Estimat Average Glucose Hemoglobin A1c % Lactic Acid Calcium Magnesium Total Bilirubin AST ALT Alkaline Phosphatase Total Protein Albumin Triglycerides Cholesterol LDL Cholesterol, Calc HDL Cholesterol Vitamin B12 Folate TSH Beta HCG, Quant Urine Color Dark Yellow Urine Appearance Cloudy Urine pH 5.5 Ur Specific [place] >= 1.030 H Urine Protein Trace Urine Glucose (UA) Negative Urine Ketones Trace Urine Blood Trace H Urine Nitrite Negative Ur Leukocyte Esterase Trace H Urine RBC 6-10 H Urine WBC 11-20 H Ur Squamous Epith Cells >20 Urine Bacteria 3+ Hyaline Casts 0-2 Urine Test NEGATIVE Salicylates Urine Opiates Screen POSITIVE H Urine Fentanyl Screen POSITIVE H Acetaminophen Ur Barbiturates Screen Not Detected Ur Phencyclidine Scrn Not Detected Ur Amphetamines Screen Not Detected U Benzodiazepines Scrn Not Detected Urine Cocaine Screen POSITIVE H U Marijuana (THC) Screen Not Detected Ethyl Alcohol COVID-19 (ANGIE) COVID-19 Clin Com Influenza Type A (MARS) Influenza Type B (MARS) Influenza A & B Note 01/02/23 01/02/23 08:01 08:01 WBC RBC Hgb Hct MCV MCH MCHC RDW Plt Count MPV Immature Gran % (Auto) Neut % (Auto) Lymph % (Auto) [place] % (Auto) Eos % (Auto) Baso % (Auto) Lymph # (Auto) [place] # (Auto) Eos # (Auto) Baso # (Auto) Abs Immat Gran (auto) Absolute Neuts (auto) Absolute Nucleated RBC Nucleated RBC % (auto) Sodium 137 Potassium 4.6 Chloride 106 Carbon Dioxide 25 Anion Gap 11 L BUN 11 Creatinine 0.71 Estim Creat Clear Calc 84.7 Estimated GFR > 60 Random Glucose Fasting Glucose 90 Estimat Average Glucose 97 Hemoglobin A1c % 5.0 Lactic Acid Calcium 9.2 Magnesium Total Bilirubin 0.3 AST 23 ALT 16 Alkaline Phosphatase 84 Total Protein 7.1 Albumin 3.4 L Triglycerides 61 Cholesterol 139 LDL Cholesterol, Calc 75 HDL Cholesterol 52 Vitamin B12 356 Folate 13.1 TSH 0.59 Beta HCG, Quant Urine Color Urine Appearance Urine pH Ur Specific [place] Urine Protein Urine Glucose (UA) Urine Ketones Urine Blood Urine Nitrite Ur Leukocyte Esterase Urine RBC Urine WBC Ur Squamous Epith Cells Urine Bacteria Hyaline Casts Urine Test Salicylates Urine Opiates Screen Urine Fentanyl Screen Acetaminophen Ur Barbiturates Screen Ur Phencyclidine Scrn Ur Amphetamines Screen U Benzodiazepines Scrn Urine Cocaine Screen U Marijuana (THC) Screen Ethyl Alcohol COVID-19 (ANGIE) COVID-19 Clin Com Influenza Type A (MARS) Influenza Type B (MARS) Influenza A & B Note Meds/Allergies Meds Home Medications Medication Instructions Recorded Confirmed Type No Known Home Meds 01/01/23 01/01/23 History Narrative: methadone confirmed by [facility] inpatient but left early and did not fu with outpatient Allergies Allergies Allergy/AdvReac Type Severity Reaction Status Date / Time Penicillins [PENICILLINS] Allergy Severe ANAPHYLAXIS Verified 10/27/22 22:14 soap [SOAP] Allergy Intermediate ITCHING Verified 10/27/22 22:14 aspirin [ASA] Allergy Unknown ANAPHYLAXIS Verified 10/27/22 22:14 cat dander [cats] Allergy Unknown moderately Verified 10/27/22 22:14 severe latex [LATEX] Allergy Unknown ANAPHYLAXIS Verified 10/27/22 22:14 shellfish derived Allergy Unknown Unknown Verified 10/27/22 22:14 tramadol [TRAMADOL] Allergy Unknown HIVES, Rash Verified 10/27/22 22:14 Mental Status Exam Mental Status Exam Patient Appearance: Disheveled and Unkempt Patient Orientation: Person, Place and Situation Level of Consciousness: Awake Patient Behavior: Guarded, Passive, Isolative and Poor Eye Contact Mood Description: Flat and Apprehensive Affect Description: Constricted Patient Cognition Impaired: No Ability to Follow Directions: Fair Speech Pattern: Clear and Soft-Spoken Thought Process: Goal Oriented Thought Content: positive for Ivor Depressive Symptoms: Increased Anxiety, Muscle Tension, Difficulty Sleeping, Loss of Int. in Activity, Feelings of Worthlessness, Unhappiness, Thoughts of /Suicide and Loss of Energy Abnormal Motor Activity Signs and Symptoms: Psychomotor Retardation Judgement: Fair Assessment & Plan Assessment & Plan (1) Cellulitis of finger of left hand: Status: Acute Code(s): L03.012 - Cellulitis of left finger Assessment and Plan: had treatment in ER will need fu outpatient (2) Opioid abuse: Status: Acute Code(s): F11.10 - Opioid abuse, uncomplicated Assessment and Plan: restarted pt on methadone will need referral to outpt clinic- knows this increases chance that she wont relapse given chronicity of her use (3) Suicidal ideation: Status: Acute Code(s): R45.851 - Suicidal ideations Assessment and Plan: ? depression or ptsd like reactivity- or due to chronic opiate use talked about starting antidepressant- lexapro 5mg Plan methadone for opiate dependence and trial of antidepressant- as well as [facility] Patient educated on: diagnosis and medication risk/benefits Informed Consent: understands Reason for continued inpatient stay Substantial Risk for: med/psych decompensation Statement Statement: I have reviewed the history and physical and performed a pertinent examination on my patient. No changes have occurred unless specified. If the History and Physical was not performed prior to admission, the Hospitalist's service will be consulted for completing the admission physical. Time Spent With Patient Time: Total time managing care of this patient today ____ minutes.
[2023-01-02] MEDS: cloNIDine HCL 0.1 MG TABLET PO ×2 (13:31→20:34)
[2023-01-02] MEDS: methADONE HCl 20 MG/2 ML ORAL.CONC 30 MG PO (14:54)
[2023-01-02] MEDS: Escitalopram Oxalate 5 MG TABLET PO (14:54)
[2023-01-02] MEDS: hydrOXYzine HCL 25 MG TABLET PO (18:59)
[2023-01-02 20:30] VITALS: BP 99/62; PULSE 86; RESP 16; TEMP 36.2; O2SAT 100
[2023-01-03] VITALS: PULSE 78
[2023-01-03 09:35] VITALS: BP 96/56; PULSE 74; RESP 18; TEMP 36.3; O2SAT 98
--- NOTE | 2023-01-03 10:23 | P.PNPSI_ITS ---
Subjective Subjective Date of Service: 01/03/23 Reason For Visit: SI Subjective Notes: 3 Day Healthcare Proxy: No Guardianship: No Medical Problems Affecting Mental Status: No Interim History: Pt feeling better on methadone less complaints of withdrawl, starting antidepressant today and looking to get ongoing help - though not showing much engagement still on unit- She denies any further si - since admission Medication Compliance: Yes Side effects from medications: No Attending Groups: No Review of Systems Acute medical concerns: No Medical Review of Systems: unchanged Mental Status Exam Mental Status Exam Patient Appearance: Disheveled and Unkempt Patient Orientation: Person, Place and Situation Level of Consciousness: Awake Patient Behavior: Guarded, Passive and Isolative Mood Description: Flat and Apprehensive Affect Description: Constricted Patient Cognition Impaired: No Ability to Follow Directions: Fair Speech Pattern: Clear and Soft-Spoken Thought Process: Goal Oriented Thought Content: positive for [place] Depressive Symptoms: Difficulty Sleeping and Loss of Energy Abnormal Motor Activity Signs and Symptoms: Psychomotor Retardation Judgement: Fair Diagnostics Vital Signs (24Hr): Vital Signs - 24 hr 01/02/23 20:30 01/03/23 09:35 Temperature 97.2 F 97.4 F Pulse Rate 86 74 Respiratory Rate 16 18 Blood Pressure 99/62 96/56 L Pulse Oximetry 100 98 Oxygen Delivery Method Room Air Room Air BMI result Body Mass Index 18.0 Labs 12/31/22 21:08 01/02/23 08:01 Labs: Laboratory Results - last 48 hr 01/02/23 01/02/23 08:01 08:01 Sodium 137 Potassium 4.6 Chloride 106 Carbon Dioxide 25 Anion Gap 11 L BUN 11 Creatinine 0.71 Estim Creat Clear Calc 84.7 Estimated GFR > 60 Fasting Glucose 90 Estimat Average Glucose 97 Hemoglobin A1c % 5.0 Calcium 9.2 Total Bilirubin 0.3 AST 23 ALT 16 Alkaline Phosphatase 84 Total Protein 7.1 Albumin 3.4 L Triglycerides 61 Cholesterol 139 LDL Cholesterol, Calc 75 HDL Cholesterol 52 Vitamin B12 356 Folate 13.1 TSH 0.59 Medications Medications Current Medications Acetaminophen (Acetaminophen 325 Mg Tablet) 650 mg PO Q6H PRN PRN Reason: Headache/Pain Mild Scale (1-3) Al Hydroxide/Mg Hydroxide (Magnesium Hydrox/Alum Hydrox 30 Ml Oral.Susp) 30 ml PO Q6H PRN PRN Reason: Heartburn/Nausea Baclofen (Baclofen 10 Mg Tablet) 5 mg PO TID PRN PRN Reason: Muscle Spasm Clonidine HCl (Clonidine Hcl 0.1 Mg Tablet) 0.1 mg PO Q6H PRN; Protocol PRN Reason: Opiate Withdrawal Last Admin: 01/02/23 20:34 Dose: 0.1 mg Escitalopram Oxalate (Escitalopram Oxalate 5 Mg Tablet) 5 mg PO DAILY [facility] Last Admin: 01/02/23 14:54 Dose: 5 mg Hydroxyzine HCl (Hydroxyzine Hcl 25 Mg Tablet) 25 mg PO Q6H PRN PRN Reason: Anxiety Last Admin: 01/02/23 18:59 Dose: 25 mg Magnesium Hydroxide (Milk Of Magnesia 30 Ml Oral.Susp) 30 ml PO DAILY PRN PRN Reason: Constipation Methadone HCl (Methadone Hcl 20 Mg/2 Ml Oral.Conc) 30 mg PO DAILY [facility] Nicotine Polacrilex (Nicotine Polacrilex 2 Mg Gum) 2 mg BUCCAL Q2H PRN PRN Reason: Nicotine Cravings Thiamine HCl (Thiamine Hcl 100 Mg Tablet) 100 mg PO DAILY [facility] Last Admin: 01/02/23 09:14 Dose: Not Given Trazodone HCl (Trazodone Hcl 50 Mg Tablet) 50 mg PO BEDTIME MRX1 PRN PRN Reason: Insomnia Allergies Allergies Allergy/AdvReac Type Severity Reaction Status Date / Time Penicillins [PENICILLINS] Allergy Severe ANAPHYLAXIS Verified 10/27/22 22:14 soap [SOAP] Allergy Intermediate ITCHING Verified 10/27/22 22:14 aspirin [ASA] Allergy Unknown ANAPHYLAXIS Verified 10/27/22 22:14 cat dander [cats] Allergy Unknown moderately Verified 10/27/22 22:14 severe latex [LATEX] Allergy Unknown ANAPHYLAXIS Verified 10/27/22 22:14 shellfish derived Allergy Unknown Unknown Verified 10/27/22 22:14 tramadol [TRAMADOL] Allergy Unknown HIVES, Rash Verified 10/27/22 22:14 Assessment & Plan Assessment & Plan (1) Cellulitis of finger of left hand: Status: Acute Code(s): L03.012 - Cellulitis of left finger Assessment and Plan: had treatment in ER will need fu outpatient (2) Opioid abuse: Status: Acute Code(s): F11.10 - Opioid abuse, uncomplicated Assessment and Plan: restarted pt on methadone will need referral to outpt clinic- knows this increases chance that she wont relapse given chronicity of her use (3) Suicidal ideation: Status: Acute Code(s): R45.851 - Suicidal ideations Assessment and Plan: ? depression or ptsd like reactivity- or due to chronic opiate use talked about starting antidepressant- lexapro 5mg Plan methadone for opiate dependence and trial of antidepressant- as well as [place] therapy Patient educated on: medication risk/benefits and therapeutic strategies Informed Consent: understands and further education needed Reason for continued inpatient stay Substantial Risk for: rapid decompensation Time Spent With Patient Time: Total time managing care of this patient today ____ minutes.
[2023-01-03] MEDS: methADONE HCl 20 MG/2 ML ORAL.CONC 30 MG PO (10:51)
[2023-01-03] MEDS: Escitalopram Oxalate 5 MG TABLET PO (10:51)
[2023-01-03] MEDS: hydrOXYzine HCL 25 MG TABLET PO ×2 (14:24→21:03)
[2023-01-03 16:00] VITALS: PULSE 64
[2023-01-03 16:05] VITALS: BP 98/61; PULSE 72; RESP 18; O2SAT 98
[2023-01-03] MEDS: cloNIDine HCL 0.1 MG TABLET PO (16:09)
[2023-01-03 20:35] VITALS: BP 93/52; PULSE 66; RESP 18; TEMP 36.8; O2SAT 98
[2023-01-03] MEDS: traZODone HCL 50 MG TABLET PO (21:03)
[2023-01-04 08:00] VITALS: PULSE 66
[2023-01-04 08:15] VITALS: BP 92/62; PULSE 66; RESP 18; TEMP 36.8; O2SAT 100
[2023-01-04] MEDS: Thiamine HCL 100 MG TABLET PO (09:39)
[2023-01-04] MEDS: methADONE HCl 20 MG/2 ML ORAL.CONC 30 MG PO (09:39)
[2023-01-04] MEDS: Escitalopram Oxalate 5 MG TABLET PO (09:39)
--- NOTE | 2023-01-04 11:42 | P.PNPSI_ITS ---
Subjective Subjective Date of Service: 01/04/23 Reason For Visit: SI Subjective Notes: Conditional Voluntary and 3 Day Interim History: Pt reports feeling better in that she is less depressed and denies suicidal or homicidal ideation. Pt reports feeling very anxious. She does report seroquel has been helpful for her in the past. She denies VH/AH. Per nursing, pt slept through the night. No behavioral concerns. Medication Compliance: Yes Mental Status Exam Mental Status Exam Narrative: Memory/cog: alert, oriented x 3. grossly intact to conversational testing. Appearance: casually groomed, good hygiene, in NAD Behavior: cooperative Psychomotor: no agitation or retardation noted Speech: clear, normal rate/rhythm/volume, spontaneous TP: linear TC: no signs of psychosis, feeling very anxious Mood: better Affect: congruent, non labile SI: denies HI: denies VH/AH: none delusions: none Insight/judgment: fair x 2. Diagnostics Vital Signs (24Hr): Vital Signs - 24 hr 01/03/23 16:05 01/03/23 20:35 Temperature 98.2 F Pulse Rate 72 66 Respiratory Rate 18 18 Blood Pressure 98/61 93/52 L Pulse Oximetry 98 98 Oxygen Delivery Method Room Air Room Air BMI result Body Mass Index 18.0 Labs 12/31/22 21:08 01/02/23 08:01 Medications Medications Current Medications Acetaminophen (Acetaminophen 325 Mg Tablet) 650 mg PO Q6H PRN PRN Reason: Headache/Pain Mild Scale (1-3) Al Hydroxide/Mg Hydroxide (Magnesium Hydrox/Alum Hydrox 30 Ml Oral.Susp) 30 ml PO Q6H PRN PRN Reason: Heartburn/Nausea Baclofen (Baclofen 10 Mg Tablet) 5 mg PO TID PRN PRN Reason: Muscle Spasm Clonidine HCl (Clonidine Hcl 0.1 Mg Tablet) 0.1 mg PO Q6H PRN; Protocol PRN Reason: Opiate Withdrawal Last Admin: 01/03/23 16:09 Dose: 0.1 mg Escitalopram Oxalate (Escitalopram Oxalate 5 Mg Tablet) 5 mg PO DAILY [facility] Last Admin: 01/04/23 09:39 Dose: 5 mg Hydroxyzine HCl (Hydroxyzine Hcl 25 Mg Tablet) 25 mg PO Q6H PRN PRN Reason: Anxiety Last Admin: 01/03/23 21:03 Dose: 25 mg Loperamide HCl (Loperamide Hcl 2 Mg Capsule) 2 mg PO Q4H PRN PRN Reason: Loose Stool Magnesium Hydroxide (Milk Of Magnesia 30 Ml Oral.Susp) 30 ml PO DAILY PRN PRN Reason: Constipation Methadone HCl (Methadone Hcl 20 Mg/2 Ml Oral.Conc) 30 mg PO DAILY [facility] Last Admin: 01/04/23 09:39 Dose: 30 mg Nicotine Polacrilex (Nicotine Polacrilex 2 Mg Gum) 2 mg BUCCAL Q2H PRN PRN Reason: Nicotine Cravings Quetiapine Fumarate (Quetiapine Fumarate 50 Mg Tablet) 50 mg PO TID [facility] Quetiapine Fumarate (Quetiapine Fumarate 100 Mg Tablet) 100 mg PO Q6H PRN PRN Reason: agitation/severe anxiety Thiamine HCl (Thiamine Hcl 100 Mg Tablet) 100 mg PO DAILY [facility] Last Admin: 01/04/23 09:39 Dose: 100 mg Trazodone HCl (Trazodone Hcl 50 Mg Tablet) 50 mg PO BEDTIME MRX1 PRN PRN Reason: Insomnia Last Admin: 01/03/23 21:03 Dose: 50 mg Allergies Allergies Allergy/AdvReac Type Severity Reaction Status Date / Time Penicillins [PENICILLINS] Allergy Severe ANAPHYLAXIS Verified 10/27/22 22:14 soap [SOAP] Allergy Intermediate ITCHING Verified 10/27/22 22:14 aspirin [ASA] Allergy Unknown ANAPHYLAXIS Verified 10/27/22 22:14 cat dander [cats] Allergy Unknown moderately Verified 10/27/22 22:14 severe latex [LATEX] Allergy Unknown ANAPHYLAXIS Verified 10/27/22 22:14 shellfish derived Allergy Unknown Unknown Verified 10/27/22 22:14 tramadol [TRAMADOL] Allergy Unknown HIVES, Rash Verified 10/27/22 22:14 Assessment & Plan Assessment & Plan (1) MDD (major depressive disorder), recurrent episode, moderate: Status: Acute Code(s): F33.1 - Major depressive disorder, recurrent, moderate (2) Opioid use disorder: Status: Acute Code(s): F11.90 - Opioid use, unspecified, uncomplicated Plan methadone for opiate dependence and trial of antidepressant- as well as [facility] therapy 01/04 pt denies SI/HI. She reports improved mood. She does report feeling anxious and agrees to start seroquel for it. Start seroquel 50mg po TID, prn seroquel 100mg po q6h. Reason for continued inpatient stay Substantial Risk for: stable for discharge Time Spent With Patient Time: Total time managing care of this patient today ____ minutes.
[2023-01-04] MEDS: QUEtiapine Fumarate 50 MG TABLET PO ×3 (12:59→21:32)
[2023-01-04] MEDS: hydrOXYzine HCL 25 MG TABLET PO ×2 (13:02→21:34)
[2023-01-04 16:00] VITALS: PULSE 70
[2023-01-04 20:14] VITALS: BP 99/56; PULSE 65; RESP 16; TEMP 36.3; O2SAT 100
[2023-01-04] MEDS: traZODone HCL 50 MG TABLET PO (21:34)
[2023-01-05 08:15] VITALS: BP 99/63; PULSE 68; RESP 18; TEMP 36.6; O2SAT 98
[2023-01-05] MEDS: Escitalopram Oxalate 5 MG TABLET PO (08:40)
[2023-01-05] MEDS: Thiamine HCL 100 MG TABLET PO (08:41)
[2023-01-05] MEDS: QUEtiapine Fumarate 50 MG TABLET PO ×3 (08:41→20:49)
[2023-01-05] MEDS: methADONE HCl 20 MG/2 ML ORAL.CONC 30 MG PO (08:42)
[2023-01-05] MEDS: hydrOXYzine HCL 25 MG TABLET PO ×2 (12:18→17:16)
--- NOTE | 2023-01-05 15:44 | HO.PSYCHPN ---
Subjective Subjective Date of Service: 01/05/23 Reason For Visit: SI Interim History: Pt reports feeling better in that she is less depressed and denies suicidal or homicidal ideation. Pt reports feeling very anxious. She does report seroquel has been helpful for her in the past. She denies VH/AH. Per nursing, pt slept through the night. No behavioral concerns. Review of Systems Review of Systems Yes all other systems are reviewed and are negative Constitutional: Reports as per HPI, Denies fatigue, Denies fever(s) and Denies headache(s) Denies headache(s) Cardiovascular: Denies chest pain and Denies dyspnea Respiratory: Denies cough and Denies dyspnea Gastrointestinal: Denies abdominal pain, Denies constipation and Denies vomiting Skin/Breast: Reports erythema, Reports rash and Reports wounds Denies headache(s) and Denies focal weakness Endocrine: Denies fatigue Mental Status Exam Mental Status Exam Narrative: Memory/cog: alert, oriented x 3. grossly intact to conversational testing. Appearance: casually groomed, good hygiene, in NAD Behavior: cooperative Psychomotor: no agitation or retardation noted Speech: clear, normal rate/rhythm/volume, spontaneous TP: linear TC: no signs of psychosis, feeling very anxious Mood: better Affect: congruent, non labile SI: denies HI: denies VH/AH: none delusions: none Insight/judgment: fair x 2. Patient Appearance: Disheveled and Unkempt Patient Orientation: Person, Place and Situation Level of Consciousness: Awake Patient Behavior: Guarded, Passive and Isolative Mood Description: Flat and Apprehensive Affect Description: Constricted Patient Cognition Impaired: No Ability to Follow Directions: Fair Speech Pattern: Clear and Soft-Spoken Diagnostics Vital Signs (24Hr): Vital Signs - 24 hr 01/04/23 20:14 Temperature 97.4 F Pulse Rate 65 Respiratory Rate 16 Blood Pressure 99/56 L Pulse Oximetry 100 Oxygen Delivery Method Room Air BMI result Body Mass Index 18.0 Labs 12/31/22 21:08 01/02/23 08:01 Medications Medications Current Medications Acetaminophen (Acetaminophen 325 Mg Tablet) 650 mg PO Q6H PRN PRN Reason: Headache/Pain Mild Scale (1-3) Al Hydroxide/Mg Hydroxide (Magnesium Hydrox/Alum Hydrox 30 Ml Oral.Susp) 30 ml PO Q6H PRN PRN Reason: Heartburn/Nausea Baclofen (Baclofen 10 Mg Tablet) 5 mg PO TID PRN PRN Reason: Muscle Spasm Clonidine HCl (Clonidine Hcl 0.1 Mg Tablet) 0.1 mg PO Q6H PRN; Protocol PRN Reason: Opiate Withdrawal Last Admin: 01/03/23 16:09 Dose: 0.1 mg Escitalopram Oxalate (Escitalopram Oxalate 5 Mg Tablet) 5 mg PO DAILY [facility] Last Admin: 01/05/23 08:40 Dose: 5 mg Hydroxyzine HCl (Hydroxyzine Hcl 25 Mg Tablet) 25 mg PO Q6H PRN PRN Reason: Anxiety Last Admin: 01/05/23 12:18 Dose: 25 mg Loperamide HCl (Loperamide Hcl 2 Mg Capsule) 2 mg PO Q4H PRN PRN Reason: Loose Stool Magnesium Hydroxide (Milk Of Magnesia 30 Ml Oral.Susp) 30 ml PO DAILY PRN PRN Reason: Constipation Methadone HCl (Methadone Hcl 20 Mg/2 Ml Oral.Conc) 30 mg PO DAILY [facility] Last Admin: 01/05/23 08:42 Dose: 30 mg Nicotine Polacrilex (Nicotine Polacrilex 2 Mg Gum) 2 mg BUCCAL Q2H PRN PRN Reason: Nicotine Cravings Quetiapine Fumarate (Quetiapine Fumarate 50 Mg Tablet) 50 mg PO TID [facility] Last Admin: 01/05/23 14:57 Dose: 50 mg Quetiapine Fumarate (Quetiapine Fumarate 100 Mg Tablet) 100 mg PO Q6H PRN PRN Reason: agitation/severe anxiety Thiamine HCl (Thiamine Hcl 100 Mg Tablet) 100 mg PO DAILY [facility] Last Admin: 01/05/23 08:41 Dose: 100 mg Trazodone HCl (Trazodone Hcl 50 Mg Tablet) 50 mg PO BEDTIME MRX1 PRN PRN Reason: Insomnia Last Admin: 01/04/23 21:34 Dose: 50 mg Allergies Allergies Allergy/AdvReac Type Severity Reaction Status Date / Time Penicillins [PENICILLINS] Allergy Severe ANAPHYLAXIS Verified 10/27/22 22:14 soap [SOAP] Allergy Intermediate ITCHING Verified 10/27/22 22:14 aspirin [ASA] Allergy Unknown ANAPHYLAXIS Verified 10/27/22 22:14 cat dander [cats] Allergy Unknown moderately Verified 10/27/22 22:14 severe latex [LATEX] Allergy Unknown ANAPHYLAXIS Verified 10/27/22 22:14 shellfish derived Allergy Unknown Unknown Verified 10/27/22 22:14 tramadol [TRAMADOL] Allergy Unknown HIVES, Rash Verified 10/27/22 22:14 Assessment & Plan Assessment & Plan (1) MDD (major depressive disorder), recurrent episode, moderate: Status: Acute Code(s): F33.1 - Major depressive disorder, recurrent, moderate (2) Opioid use disorder: Status: Acute Code(s): F11.90 - Opioid use, unspecified, uncomplicated Plan methadone for opiate dependence and trial of antidepressant- as well as [place] therapy 01/04 pt denies SI/HI. She reports improved mood. She does report feeling anxious and agrees to start seroquel for it. Start seroquel 50mg po TID, prn seroquel 100mg po q6h. 01/05 continue tx. Reason for continued inpatient stay Substantial Risk for: stable for discharge Time Spent With Patient Time: Total time managing care of this patient today ____ minutes.
[2023-01-05 17:03] VITALS: BP 100/64; PULSE 61; RESP 18; TEMP 36.6; O2SAT 100
[2023-01-05] MEDS: cloNIDine HCL 0.1 MG TABLET PO (17:15)
[2023-01-05 20:06] VITALS: BP 90/54; PULSE 65; RESP 16; TEMP 36.2; O2SAT 99
[2023-01-05] MEDS: traZODone HCL 50 MG TABLET PO (20:49)
--- NOTE | 2023-01-06 00:54 | PC.NURSE ---
COWS-not done as patient is asleep. no diaphoresis assessed. no distress. allowed to sleep.
[2023-01-06 06:00] VITALS: BP 102/59; PULSE 71; RESP 16; TEMP 36.4; O2SAT 98
[2023-01-06 08:00] VITALS: PULSE 72
[2023-01-06] MEDS: Thiamine HCL 100 MG TABLET PO (09:11)
[2023-01-06] MEDS: methADONE HCl 20 MG/2 ML ORAL.CONC 30 MG PO (09:11)
[2023-01-06] MEDS: QUEtiapine Fumarate 50 MG TABLET PO (09:11)
[2023-01-06] MEDS: Escitalopram Oxalate 5 MG TABLET PO (09:11)
--- NOTE | 2023-01-06 10:29 | P.DS_ITS ---
DS: Providers Provider Date of Service: 01/06/23 Date of admission: 01/01/23 21:45 Primary care physician: None Physician DS: Diagnosis Discharge Diagnosis (1) MDD (major depressive disorder), recurrent episode, moderate: Status: Acute (2) Opioid use disorder: Status: Deleted DS: Medications Discharge Medications Home Medications: Previous Rx's Medication Instructions Recorded escitalopram oxalate 10 mg tablet 10 mg PO DAILY #30 tabs 01/06/23 methadone 10 mg/mL oral 30 mg (3 mL) PO DAILY #0 mL 01/06/23 concentrate (Methadose) quetiapine 50 mg tablet 50 mg PO TID #90 tabs 01/06/23 thiamine mononitrate (vit B1) 100 100 mg PO DAILY #30 tabs 01/06/23 mg tablet trazodone 50 mg tablet 50 mg PO BEDTIME PRN Insomnia #30 01/06/23 tabs Mental Status Exam Mental Status Exam Narrative: Memory/cog: alert, oriented x 3. grossly intact to conversational testing. Appearance: casually groomed, good hygiene, in NAD Behavior: cooperative Psychomotor: no agitation or retardation noted Speech: clear, normal rate/rhythm/volume, spontaneous TP: linear TC: no signs of psychosis, feeling very anxious Mood: better Affect: congruent, non labile SI: denies HI: denies VH/AH: none delusions: none Insight/judgment: fair x 2. Data Data Completed and Pending Completed studies during hospitalization [Text1]: 12/31/22 12/31/22 12/31/22 21:08 21:08 21:08 WBC 5.9 RBC 4.48 Hgb 10.9 L Hct 33.5 L MCV 74.8 L MCH 24.3 L MCHC 32.5 RDW 15.4 Plt Count 502 H MPV 9.6 Immature Gran % (Auto) 0.2 Neut % (Auto) 63.0 Lymph % (Auto) 30.1 [place] % (Auto) 5.9 Eos % (Auto) 0.5 Baso % (Auto) 0.3 Lymph # (Auto) 1.8 [place] # (Auto) 0.4 Eos # (Auto) 0.0 Baso # (Auto) 0.0 Abs Immat Gran (auto) 0.01 Absolute Neuts (auto) 3.7 Absolute Nucleated RBC 0.000 Nucleated RBC % (auto) 0.0 Sodium 135 Potassium 4.0 D Chloride 98 Carbon Dioxide 28 Anion Gap 13 BUN 12 Creatinine 0.73 Estim Creat Clear Calc 82.4 Estimated GFR > 60 Random Glucose 121 H Fasting Glucose Estimat Average Glucose Hemoglobin A1c % Lactic Acid 0.6 Calcium 9.6 D Magnesium 2.2 Total Bilirubin 0.4 AST 36 H ALT 20 Alkaline Phosphatase 109 Total Protein 8.6 H Albumin 4.3 Triglycerides Cholesterol LDL Cholesterol, Calc HDL Cholesterol Vitamin B12 Folate TSH Beta HCG, Quant < 2 Urine Color Urine Appearance Urine pH Ur Specific [place] Urine Protein Urine Glucose (UA) Urine Ketones Urine Blood Urine Nitrite Ur Leukocyte Esterase Urine RBC Urine WBC Ur Squamous Epith Cells Urine Bacteria Hyaline Casts Urine Test Salicylates Urine Opiates Screen Urine Fentanyl Screen Acetaminophen Ur Barbiturates Screen Ur Phencyclidine Scrn Ur Amphetamines Screen U Benzodiazepines Scrn Urine Cocaine Screen U Marijuana (THC) Screen Ethyl Alcohol < 10 COVID-19 (ANGIE) COVID-19 Clin Com Influenza Type A (MARS) Influenza Type B (MARS) Influenza A & B Note 01/01/23 01/01/23 01/01/23 01:22 01:22 01:22 WBC RBC Hgb Hct MCV MCH MCHC RDW Plt Count MPV Immature Gran % (Auto) Neut % (Auto) Lymph % (Auto) [place] % (Auto) Eos % (Auto) Baso % (Auto) Lymph # (Auto) [place] # (Auto) Eos # (Auto) Baso # (Auto) Abs Immat Gran (auto) Absolute Neuts (auto) Absolute Nucleated RBC Nucleated RBC % (auto) Sodium Potassium Chloride Carbon Dioxide Anion Gap BUN Creatinine Estim Creat Clear Calc Estimated GFR Random Glucose Fasting Glucose Estimat Average Glucose Hemoglobin A1c % Lactic Acid Calcium Magnesium Total Bilirubin AST ALT Alkaline Phosphatase Total Protein Albumin Triglycerides Cholesterol LDL Cholesterol, Calc HDL Cholesterol Vitamin B12 Folate TSH Beta HCG, Quant Urine Color Urine Appearance Urine pH Ur Specific [place] Urine Protein Urine Glucose (UA) Urine Ketones Urine Blood Urine Nitrite Ur Leukocyte Esterase Urine RBC Urine WBC Ur Squamous Epith Cells Urine Bacteria Hyaline Casts Urine Test Salicylates < 5.0 L Urine Opiates Screen Urine Fentanyl Screen Acetaminophen < 17 Ur Barbiturates Screen Ur Phencyclidine Scrn Ur Amphetamines Screen U Benzodiazepines Scrn Urine Cocaine Screen U Marijuana (THC) Screen Ethyl Alcohol COVID-19 (ANGIE) Negative COVID-19 Clin Com See Note Influenza Type A (MARS) Negative Influenza Type B (MARS) Negative Influenza A & B Note See Note 01/01/23 01/01/23 01/01/23 02:23 02:26 02:26 WBC RBC Hgb Hct MCV MCH MCHC RDW Plt Count MPV Immature Gran % (Auto) Neut % (Auto) Lymph % (Auto) [place] % (Auto) Eos % (Auto) Baso % (Auto) Lymph # (Auto) [place] # (Auto) Eos # (Auto) Baso # (Auto) Abs Immat Gran (auto) Absolute Neuts (auto) Absolute Nucleated RBC Nucleated RBC % (auto) Sodium Potassium Chloride Carbon Dioxide Anion Gap BUN Creatinine Estim Creat Clear Calc Estimated GFR Random Glucose Fasting Glucose Estimat Average Glucose Hemoglobin A1c % Lactic Acid Calcium Magnesium Total Bilirubin AST ALT Alkaline Phosphatase Total Protein Albumin Triglycerides Cholesterol LDL Cholesterol, Calc HDL Cholesterol Vitamin B12 Folate TSH Beta HCG, Quant Urine Color Dark Yellow Urine Appearance Cloudy Urine pH 5.5 Ur Specific [place] >= 1.030 H Urine Protein Trace Urine Glucose (UA) Negative Urine Ketones Trace Urine Blood Trace H Urine Nitrite Negative Ur Leukocyte Esterase Trace H Urine RBC 6-10 H Urine WBC 11-20 H Ur Squamous Epith Cells >20 Urine Bacteria 3+ Hyaline Casts 0-2 Urine Test NEGATIVE Salicylates Urine Opiates Screen POSITIVE H Urine Fentanyl Screen POSITIVE H Acetaminophen Ur Barbiturates Screen Not Detected Ur Phencyclidine Scrn Not Detected Ur Amphetamines Screen Not Detected U Benzodiazepines Scrn Not Detected Urine Cocaine Screen POSITIVE H U Marijuana (THC) Screen Not Detected Ethyl Alcohol COVID-19 (ANGIE) COVID-19 Clin Com Influenza Type A (MRAS) Influenza Type B (MARS) Influenza A & B Note 01/02/23 01/02/23 08:01 08:01 WBC RBC Hgb Hct MCV MCH MCHC RDW Plt Count MPV Immature Gran % (Auto) Neut % (Auto) Lymph % (Auto) [place] % (Auto) Eos % (Auto) Baso % (Auto) Lymph # (Auto) [place] # (Auto) Eos # (Auto) Baso # (Auto) Abs Immat Gran (auto) Absolute Neuts (auto) Absolute Nucleated RBC Nucleated RBC % (auto) Sodium 137 Potassium 4.6 Chloride 106 Carbon Dioxide 25 Anion Gap 11 L BUN 11 Creatinine 0.71 Estim Creat Clear Calc 84.7 Estimated GFR > 60 Random Glucose Fasting Glucose 90 Estimat Average Glucose 97 Hemoglobin A1c % 5.0 Lactic Acid Calcium 9.2 Magnesium Total Bilirubin 0.3 AST 23 ALT 16 Alkaline Phosphatase 84 Total Protein 7.1 Albumin 3.4 L Triglycerides 61 Cholesterol 139 LDL Cholesterol, Calc 75 HDL Cholesterol 52 Vitamin B12 356 Folate 13.1 TSH 0.59 Beta HCG, Quant Urine Color Urine Appearance Urine pH Ur Specific [place] Urine Protein Urine Glucose (UA) Urine Ketones Urine Blood Urine Nitrite Ur Leukocyte Esterase Urine RBC Urine WBC Ur Squamous Epith Cells Urine Bacteria Hyaline Casts Urine Test Salicylates Urine Opiates Screen Urine Fentanyl Screen Acetaminophen Ur Barbiturates Screen Ur Phencyclidine Scrn Ur Amphetamines Screen U Benzodiazepines Scrn Urine Cocaine Screen U Marijuana (THC) Screen Ethyl Alcohol COVID-19 (ANGIE) COVID-19 Clin Com Influenza Type A (MARS) Influenza Type B (MARS) Influenza A & B Note 12/31/22 22:29 Blood - Venous Blood Culture - Final No growth after 5 days. 12/31/22 21:08 Blood - Venous Blood Culture - Final No growth after 5 days. DS: Summary Hospital Course Hospital Course: HPI: 32 yo F presents for psych admit due to SI in setting of opiate use- left [facility] to go use opiate- had just started methadone but still had cravings, then had SI in addition to cellulitis which she got IV abiotics - in ER. Pt reports she is depressed and discouraged, denies prior psychiatric treatment, only been focused on substance use- Reports trouble sleeping low energy, apt has been ok, decreased interests, SI is not usual for her- has not made a Suicide attempt since 14yo Reports adopted, trauma hx- nightmares Past Psychiatric History: denies prior treatment with psychiatric medications Medical Evaluation Reviewed: Yes (was seen and treated in ER for cellulitis ? ) wounds seem to healing HOSPITAL COURSE On the unit, pt was admitted on a CV and placed on 15 minutes checks for safety. Pt denied suicidal or homicidal ideation throughout hospital stay. We discussed risks, benefits and alternative treatment options. Pt agreed to restart lexapro for depression, which she reported had been beneficial for mood. She was also started on seroquel for mood/dysphoric mood and anxious mood. She was visible on the unit, social with select peer. There were no incidences of disruptive behaviors nor need for restraints. Pt continue methadone for opioid use disorder. She was given narcan prior to discharge. Pt to follow up with outpatient dual diagnosis programming. Time spent discussing smoking cessation with patient: 3 to 10 minutes Status at Discharge Cognitive/behavioral status at discharge: Pt with bright, non labile affect. No SI/HI. no psychosis or delusions. Pt presented as future oriented. No signs of aggression towards self or others. Discussed harm reduction, continue substance use tx and given narcan on discharge. Functional status at discharge: independent ambulation Overall status at discharge: patient is progressing back to baseline Time Spent with Patient Time attestation: Total time managing care of this patient today ____ minutes. Discharge Plan Discharge Anticipated Discharge Date/Time: 01/06/23 10:15 Patient Disposition: Home, Self-Care Discharge Diagnosis: MDD, recurrent, moderate Opioid Use disorder Referrals: Marianne Hardy (Therapy) [Other] - 01/12/23 3:00 pm (IN OFFICE APPOINTMENT -Please arrive fifteen minutes early to your appointment in order to fill out necessary paperwork. ) Deborah Singh (Psychiatry) [Other] - 02/03/23 9:45 am (IN OFFICE APPOINTMENT -Psychiatric Evaluation ) Deborah Singh (Psychiatry) [Other] - 03/05/23 1:00 pm (IN OFFICE APPOINTMENT -Medication Management ) Physician,None [Primary Care Provider] - 1 Week Discharge Medications: New escitalopram oxalate 10 mg tablet 10 mg PO DAILY Qty: 30 0RF trazodone 50 mg Tablet 50 mg PO BEDTIME PRN (Reason: Insomnia) Qty: 30 0RF methadone [Methadose] 10 mg/mL Concentrate 30 mg PO DAILY Qty: 0 0RF Rx Instructions: Partial Fill upon patient request. quetiapine 50 mg Tablet 50 mg PO TID Qty: 90 0RF thiamine mononitrate (vit B1) 100 mg Tablet 100 mg PO DAILY Qty: 30 0RF Discharge Orders: Discharge Order (Routine); Ordered 01/06/23 Ordered By: Aysha Laughlin Diet: Regular diet Activity on Discharge: As tolerated Stand Alone Forms: Patient Portal Discharge page, Community Support Care Plan Goals: 1. Maintain Mood 2. No SI/HI. 3. Harm reduction- narcan given on discharge Health Concerns: Follow up with PCP Plan of Treatment: Take medications as prescribed Go to nearest ED or call 911 in event of emergency. Assessment: Pt with brighter affect. Non labile. No psychosis, or delusions. Future oriented . Pt sleeping and eating well. Pt social with peers. No signs of aggression towards self or others. Narcan given on discharge. Discharge Date/Time: 01/06/23 11:24
== END 2023-01-06 11:24 | disposition home or self-care (01) | DRG 751 ==
LOC: HO.ED 01-01 01:36 → HO.PADLT16 01-01 21:52
PROVIDERS: Physician Assistant; Admitting Provider Social Worker; Emergency Provider Emergency Medicine Emergency Medical Services; Visit Provider Social Worker
DX: F33.1 Major depressive disorder, recurrent, moderate (principal); R45.851 Suicidal ideations; F11.20 Opioid dependence, uncomplicated; L03.012 Cellulitis of left finger; F17.210 Nicotine dependence, cigarettes, uncomplicated; Z59.02 Unsheltered homelessness; Z71.6 Tobacco abuse counseling; Z91.040 Latex allergy status; Z79.899 Other long term (current) drug therapy
CPT/HCPCS: 36415; 80053; 80061; 80143; 80179; 80307; 81001; 81025; 82607; 82746; 83036; 83605; 83735; 84443; 84702; 85025; 87040; 87502; 87635; 93005; 99285; S9485

== ENCOUNTER 2023-04-17 14:43 | Emergency (ER) | payer OTHER, SELFPAY ==
--- NOTE | ~2023-04-17 | XR_ITS ---
EXAMINATION: XR ABDOMEN KUB CLINICAL INDICATION: Constipation low suspicion for SBO COMPARISON: None available. TECHNIQUE: AP view of the abdomen. FINDINGS: No dilated loops of bowel to suggest obstruction. Moderate fecal loading in the visualized colon greatest in its ascending segment as well as sigmoid colon. Osseous structures are intact. Soft tissues are unremarkable. XR/XR KUB IMPRESSION: 1. No dilated loops of bowel to suggest obstruction. 2. Moderate fecal loading in the visualized colon greatest in its ascending segment as well as sigmoid colon.
[2023-04-17 14:44] VITALS: BP 124/83; PULSE 104; RESP 18; TEMP 36.9; O2SAT 97; BMI 27.7
--- NOTE | 2023-04-17 14:45 | ED.ABDPAIN ---
HPI - Abdominal Pain General Chief Complaint: Nausea/Vomiting/Diarrhea Stated Complaint: nausea Time Seen by Provider: 04/17/23 16:16 Source: patient Mode of arrival: ambulatory Limitations: no limitations History of Present Illness HPI narrative: Patient comes to the emergency room complaining of nausea vomiting diarrhea for couple of days. Patient states she saw blood per rectum. Patient states that the diarrhea alternates with constipation. Patient denies fever chills, no URI or UTI symptoms. Related Data Home Medications Medication Instructions Recorded Confirmed aripiprazole 2 mg tablet 2 mg PO DAILY 04/17/23 04/17/23 bupropion HCl 150 mg 24 hr tablet, 150 mg PO DAILY 04/17/23 04/17/23 extended release buspirone 10 mg tablet 10 mg PO TID 04/17/23 04/17/23 clonidine HCl 0.1 mg tablet 0.1 mg PO DAILY PRN Anxiety 04/17/23 04/17/23 gabapentin 300 mg capsule 600 mg PO TID 04/17/23 04/17/23 hydroxyzine pamoate 50 mg capsule 50 mg PO TID PRN Anxiety 04/17/23 04/17/23 lorazepam 1 mg tablet 1 mg PO DAILY PRN Anxiety 04/17/23 04/17/23 melatonin 3 mg tablet 6 mg PO BEDTIME 04/17/23 04/17/23 methadone 10 mg/mL oral 40 mg PO DAILY 04/17/23 04/17/23 concentrate (Methadose) nicotine (polacrilex) 4 mg buccal 4 mg PO Q2H 04/17/23 04/17/23 lozenge quetiapine 25 mg tablet 75 mg PO DAILY 04/17/23 04/17/23 zolpidem 10 mg tablet 10 mg PO BEDTIME PRN Insomnia 04/17/23 04/17/23 Allergies Allergy/AdvReac Type Severity Reaction Status Date / Time Penicillins [PENICILLINS] Allergy Severe ANAPHYLAXIS Verified 04/17/23 14:50 soap [SOAP] Allergy Intermediate ITCHING Verified 04/17/23 14:50 aspirin [ASA] Allergy Unknown ANAPHYLAXIS Verified 04/17/23 14:50 cat dander [cats] Allergy Unknown moderately Verified 04/17/23 14:50 severe latex [LATEX] Allergy Unknown ANAPHYLAXIS Verified 04/17/23 14:50 shellfish derived Allergy Unknown Unknown Verified 04/17/23 14:50 tramadol [TRAMADOL] Allergy Unknown HIVES, Rash Verified 10/27/22 22:14 acetaminophen [From Tylenol] Allergy Hives Verified 04/17/23 14:50 Review of Systems Review of Systems Constitutional : No Weight loss, No Fever, No Chills, No Night Sweats, No Fatigue, No Malaise ENT/Mouth : No Hearing loss, No Ear Pain, No Nasal Congestion, No Sinus Pain, No Hoarseness, No sore throat, No Rhinorrhea, No Swallowing Difficulty Eyes: No Eye Pain, No Swelling, No Redness, No Foreign Body, No Discharge, No Vision Changes Cardiovascular : No Chest Pain, No SOB, No Dyspnea on Exertion, No Orthopnea, No Edema, No Palpitations Respiratory : No Cough, No Sputum, No Wheezing, No Smoke Exposure, No Dyspnea Gastrointestinal : Patient complaining of nausea, vomiting, alternating diarrhea constipation, mild abdominal cramping Genitourinary : no irregular bleeding, No Dysuria, No Urinary Frequency, No Hematuria, No Urinary Incontinence, No Urgency, No Flank Pain, No Urinary Flow Changes, No Hesitancy Musculoskeletal : No joint pain, No Myalgias, No Joint Swelling Skin : No Skin Lesions, No rash Neuro : No Weakness, No Numbness, No Paresthesias, No Loss of Consciousness, No Dizziness, No Headache Psych : No Anxiety/Panic, No Depression, No SI/HI/AH/VH, No Social Issues, Heme/Lymph: No Bruising, No Bleeding,No Lymphadenopathy Endocrine : No Polyuria, No Polydipsia, No Temperature Intolerance PMFSH Past Medical History Medical History Abscess of left arm Left arm cellulitis Substance abuse Social History Social History Household Members: None Housing: Homeless Do you presently have visiting nurse or other home services: No Alcohol intake: never Patient Tobacco Use Status: Current everyday Tobacco user Tobacco use type: Cigarette Cigarette Packs Per Day: 0.5 Cigarettes Per Day: 10.0 Smoked in Last 30 Days: Yes e-Cigarette/Vaping Use: Never Used Second Hand Smoke Exposure: No Use of substances other than those prescribed or required for medical reasons: No Substance Use Type: Heroin Advance Directives: No Advance Directives Information Provided: No service: No Sexual orientation: Straight/Heterosexual Physical Exam ED Vital Signs: Vital Signs - 24 hr 04/17/23 14:44 04/17/23 16:03 04/17/23 18:00 Temperature 98.5 F 97.7 F Pulse Rate 104 H 79 Respiratory Rate 18 18 16 Blood Pressure 124/83 117/80 Pulse Oximetry 97 93 Oxygen Delivery Method Room Air 04/17/23 23:09 04/18/23 09:48 04/18/23 12:19 Temperature 97.7 F 98 F 97.3 F Pulse Rate 76 69 72 Respiratory Rate 17 16 18 Blood Pressure 110/80 104/68 107/68 Pulse Oximetry 95 97 97 Oxygen Delivery Method Room Air Room Air Room Air BMI result Body Mass Index 27.7 Const Other: Appearance: Alert. Oriented X3. No acute distress. Well appearing Eyes: Pupils equal, round and reactive to light. ENT: Pharynx normal. Neck: Normal inspection. Neck supple. No lymph nodes noted. No crepitus CVS: Normal heart rate and rhythm. Pulses normal. Normal S1 and S2 Respiratory: No respiratory distress. Breath sounds normal. No Wheezing. No rales Abdomen: Soft and nontender. No rigidity. No distention. Digital rectal exam shows brown stool, no obvious red blood per rectum Skin: Skin warm and dry. Normal skin color. Normal skin turgor. Extremities: No lower extremity edema. No Lacerations. No Rash Neuro: Oriented X 3. No motor deficit. No sensory deficit. Moving all extremities. No slurred speech. CN 2 through 12 grossly intact Psych: calm, cooperative, normal affect Course Course Course Narrative: This is an RME: Additional HPI, ROS, PE not included below will be deferred to primary provider. Patient is a 32 year old female presenting to the ED with complaints of diffuse ABD pain, nausea, vomiting, diarrhea, and bloody stool x 2 days although she does endorse staining for bowel movement. Plan: labs, urinalysis, ondansetron Reevaluation(s) Reevaluation #1: 04/18/2023 9 AM Pt was signed off to me at [address] Arias she remain stable overnight,she is [facility] bed search Time: 09:20 Reevaluation #2: Bed fount at the respite pt will be d/c to respite Time: 12:42 Medical Decision Making Medical Decision Making MDM Narrative: -my interpretation of labs: White blood cell count, normal hemoglobin and hematocrit, chemistries unremarkable, electrolytes within normal limits, lipase normal, -KUB negative for obstruction -urinalysis negative for UTI, has mild leukocyte esterase, no UTI symptoms -patient states that she has been having thoughts of hurting herself. Patient requesting to be seen by behavior Health -care team consult pending -physician observation started at 18:00 -the care team evaluated the patient: Recommendations: Going to [facility] in the morning on 04/18 Differential Diagnosis Differential Diagnoses: The differential diagnosis associated with the presentation includes (IBS, constipation secondary to open a chronic narcotic use, gastroenteritis, viral syndrome) Admission/Observation Consideration of admission/observation: Escalation of care including admission/observation considered (On arrival, patient complaining of nausea vomiting diarrhea for couple of days, admission being considered. Patient being hydrated) Lab Data MDM Lab Attestation statement: I reviewed the patient's lab results. 04/17/23 15:13 04/17/23 15:13 Labs: Lab Results 04/17/23 04/17/23 04/17/23 Range/Units 15:13 15:13 15:13 WBC 10.2 (4.8-10.8) X10*3/uL RBC 5.15 (4.20-5.50) X10*6/uL Hgb 12.5 (12.0-16.0) g/dl Hct 39.1 (37.0-47.0) % MCV 75.9 L (80.0-98.0) fL MCH 24.3 L (27.0-33.0) pg MCHC 32.0 (31.0-35.0) g/dl RDW 16.2 H (11.0-16.0) % Plt Count 444 H (160-400) X10*3/uL MPV 10.0 (9.4-12.3) fL Immature Gran % (Auto) 0.4 (0.0-0.4) % Neut % (Auto) 89.4 H (45-73) % Lymph % (Auto) 7.8 L (20-40) % [place] % (Auto) 2.1 (2-11) % Eos % (Auto) 0.0 (0-4) % Baso % (Auto) 0.3 (0-2) % Lymph # (Auto) 0.8 L (1.2-4.9) X10*3/uL [place] # (Auto) 0.2 (0.1-1.2) X10*3/uL Eos # (Auto) 0.0 (0.0-0.4) X10*3/uL Baso # (Auto) 0.0 (0.0-0.2) X10*3/uL Abs Immat Gran (auto) 0.04 H (0.00-0.03) X10*3/uL Absolute Neuts (auto) 9.1 H (2.0-8.3) x10*3/uL Absolute Nucleated RBC 0.000 (0.0-0.012) X10*3/uL Nucleated RBC % (auto) 0.0 (0.0-0.2) /100WBC Sodium 138 (135-145) mmol/L Potassium 4.0 (3.3-5.1) mmol/L Chloride 103 (96-108) mmol/L Carbon Dioxide 23 (22-29) mmol/L Anion Gap 16 (12-20) BUN 18 H (9-16) mg/dL Creatinine 0.93 (0.5-1.4) mg/dL Estim Creat Clear Calc 87.4 Estimated GFR > 60 Random Glucose 122 H (60-115) mg/dL Lactic Acid 1.9 (0.5-2.0) mmol/L Calcium 10.4 H D (8.4-10.2) mg/dL Total Bilirubin 0.5 (0.0-1.0) mg/dL AST 25 (5-31) U/L ALT 23 (0-31) U/L Alkaline Phosphatase 104 (39-117) U/L Total Protein 9.1 H (6.5-8.0) g/dL Albumin 4.7 (3.5-5.0) g/dL Lipase 16 (8-78) U/L Urine Color Urine Appearance Urine pH (5.0-9.0) Ur Specific [place] (1.005-1.025) Urine Protein (Neg-Trace) mg/dL Urine Glucose (UA) (Negative) mg/dL Urine Ketones (Negative) mg/dL Urine Blood (Negative) Urine Nitrite (Negative) Ur Leukocyte Esterase (Negative) Urine RBC (0-2) /HPF Urine WBC (0-5) /HPF Ur Squamous Epith Cells (0-2) /HPF Urine Bacteria (None Seen) Hyaline Casts (0-2) /LPF Urine Test (NEGATIVE) Stool Occult Blood (NEGATIVE) Urine Opiates Screen (Not Detect) Urine Fentanyl Screen (Not Detect) Ur Barbiturates Screen (Not Detect) Ur Phencyclidine Scrn (Not Detect) Ur Amphetamines Screen (Not Detect) U Benzodiazepines Scrn (Not Detect) Urine Cocaine Screen (Not Detect) U Marijuana (THC) Screen (Not Detect) Ethyl Alcohol < 10 mg/dL COVID-19 (ANGIE) (Negative) COVID-19 Clin Com 04/17/23 04/17/23 04/17/23 Range/Units 15:13 16:49 17:59 WBC (4.8-10.8) X10*3/uL RBC (4.20-5.50) X10*6/uL Hgb (12.0-16.0) g/dl Hct (37.0-47.0) % MCV (80.0-98.0) fL MCH (27.0-33.0) pg MCHC (31.0-35.0) g/dl RDW (11.0-16.0) % Plt Count (160-400) X10*3/uL MPV (9.4-12.3) fL Immature Gran % (Auto) (0.0-0.4) % Neut % (Auto) (45-73) % Lymph % (Auto) (20-40) % [place] % (Auto) (2-11) % Eos % (Auto) (0-4) % Baso % (Auto) (0-2) % Lymph # (Auto) (1.2-4.9) X10*3/uL [place] # (Auto) (0.1-1.2) X10*3/uL Eos # (Auto) (0.0-0.4) X10*3/uL Baso # (Auto) (0.0-0.2) X10*3/uL Abs Immat Gran (auto) (0.00-0.03) X10*3/uL Absolute Neuts (auto) (2.0-8.3) x10*3/uL Absolute Nucleated RBC (0.0-0.012) X10*3/uL Nucleated RBC % (auto) (0.0-0.2) /100WBC Sodium (135-145) mmol/L Potassium (3.3-5.1) mmol/L Chloride (96-108) mmol/L Carbon Dioxide (22-29) mmol/L Anion Gap (12-20) BUN (9-16) mg/dL Creatinine (0.5-1.4) mg/dL Estim Creat Clear Calc Estimated GFR Random Glucose (60-115) mg/dL Lactic Acid (0.5-2.0) mmol/L Calcium (8.4-10.2) mg/dL Total Bilirubin (0.0-1.0) mg/dL AST (5-31) U/L ALT (0-31) U/L Alkaline Phosphatase (39-117) U/L Total Protein (6.5-8.0) g/dL Albumin (3.5-5.0) g/dL Lipase (8-78) U/L Urine Color Yellow Urine Appearance Turbid Urine pH 5.5 (5.0-9.0) Ur Specific [place] >= 1.030 H (1.005-1.025) Urine Protein 30 (1+) H (Neg-Trace) mg/dL Urine Glucose (UA) Negative (Negative) mg/dL Urine Ketones Negative (Negative) mg/dL Urine Blood Negative (Negative) Urine Nitrite Negative (Negative) Ur Leukocyte Esterase Trace H (Negative) Urine RBC 0-2 (0-2) /HPF Urine WBC 6-10 H (0-5) /HPF Ur Squamous Epith Cells 6-10 (0-2) /HPF Urine Bacteria Trace (None Seen) Hyaline Casts >20 (0-2) /LPF Urine Test (NEGATIVE) Stool Occult Blood NEGATIVE (NEGATIVE) Urine Opiates Screen (Not Detect) Urine Fentanyl Screen (Not Detect) Ur Barbiturates Screen (Not Detect) Ur Phencyclidine Scrn (Not Detect) Ur Amphetamines Screen (Not Detect) U Benzodiazepines Scrn (Not Detect) Urine Cocaine Screen (Not Detect) U Marijuana (THC) Screen (Not Detect) Ethyl Alcohol mg/dL COVID-19 (ANGIE) Negative (Negative) COVID-19 Clin Com See Note 04/17/23 04/17/23 Range/Units 17:59 17:59 WBC (4.8-10.8) X10*3/uL RBC (4.20-5.50) X10*6/uL Hgb (12.0-16.0) g/dl Hct (37.0-47.0) % MCV (80.0-98.0) fL MCH (27.0-33.0) pg MCHC (31.0-35.0) g/dl RDW (11.0-16.0) % Plt Count (160-400) X10*3/uL MPV (9.4-12.3) fL Immature Gran % (Auto) (0.0-0.4) % Neut % (Auto) (45-73) % Lymph % (Auto) (20-40) % [place] % (Auto) (2-11) % Eos % (Auto) (0-4) % Baso % (Auto) (0-2) % Lymph # (Auto) (1.2-4.9) X10*3/uL [place] # (Auto) (0.1-1.2) X10*3/uL Eos # (Auto) (0.0-0.4) X10*3/uL Baso # (Auto) (0.0-0.2) X10*3/uL Abs Immat Gran (auto) (0.00-0.03) X10*3/uL Absolute Neuts (auto) (2.0-8.3) x10*3/uL Absolute Nucleated RBC (0.0-0.012) X10*3/uL Nucleated RBC % (auto) (0.0-0.2) /100WBC Sodium (135-145) mmol/L Potassium (3.3-5.1) mmol/L Chloride (96-108) mmol/L Carbon Dioxide (22-29) mmol/L Anion Gap (12-20) BUN (9-16) mg/dL Creatinine (0.5-1.4) mg/dL Estim Creat Clear Calc Estimated GFR Random Glucose (60-115) mg/dL Lactic Acid (0.5-2.0) mmol/L Calcium (8.4-10.2) mg/dL Total Bilirubin (0.0-1.0) mg/dL AST (5-31) U/L ALT (0-31) U/L Alkaline Phosphatase (39-117) U/L Total Protein (6.5-8.0) g/dL Albumin (3.5-5.0) g/dL Lipase (8-78) U/L Urine Color Urine Appearance Urine pH (5.0-9.0) Ur Specific [place] (1.005-1.025) Urine Protein (Neg-Trace) mg/dL Urine Glucose (UA) (Negative) mg/dL Urine Ketones (Negative) mg/dL Urine Blood (Negative) Urine Nitrite (Negative) Ur Leukocyte Esterase (Negative) Urine RBC (0-2) /HPF Urine WBC (0-5) /HPF Ur Squamous Epith Cells (0-2) /HPF Urine Bacteria (None Seen) Hyaline Casts (0-2) /LPF Urine Test NEGATIVE (NEGATIVE) Stool Occult Blood (NEGATIVE) Urine Opiates Screen POSITIVE H (Not Detect) Urine Fentanyl Screen POSITIVE H (Not Detect) Ur Barbiturates Screen Not Detected (Not Detect) Ur Phencyclidine Scrn POSITIVE H (Not Detect) Ur Amphetamines Screen Not Detected (Not Detect) U Benzodiazepines Scrn Not Detected (Not Detect) Urine Cocaine Screen POSITIVE H (Not Detect) U Marijuana (THC) Screen Not Detected (Not Detect) Ethyl Alcohol mg/dL COVID-19 (ANGIE) (Negative) COVID-19 Clin Com Medications Administered Generic Name Dose Route Start Last Admin Trade Name Prisca PRN Reason Stop Dose Admin Aripiprazole 2 mg 04/18/23 09:00 04/18/23 12:19 Aripiprazole 2 Mg Tablet PO Not Given DAILY LASHA Bupropion HCl 150 mg 04/18/23 09:00 04/18/23 12:19 Bupropion Hcl Xl 150 Mg Tab.Er.24h PO Not Given DAILY LASHA Buspirone HCl 10 mg 04/17/23 21:00 04/18/23 12:19 Buspirone Hcl 10 Mg Tablet PO Not Given TID LASHA Gabapentin 600 mg 04/17/23 21:00 04/18/23 12:22 Gabapentin 300 Mg Capsule PO 600 mg TID LASHA Administration Melatonin 6 mg 04/17/23 21:00 04/17/23 20:47 Melatonin 3 Mg Tablet PO 6 mg BEDTIME LASHA Administration Methadone HCl 40 mg 04/17/23 20:30 04/18/23 12:23 Methadone Hcl 20 Mg/2 Ml Oral.Conc PO 40 mg DAILY LASHA Administration Discontinued Medications Generic Name Dose Route Start Last Admin Trade Name Freq PRN Reason Stop Dose Admin Sodium Chloride 1,000 mls @ 999 mls/hr 04/17/23 16:15 04/17/23 18:47 Ns IV 04/17/23 17:15 Infused .Q1H1M LASHA Infusion Lorazepam 2 mg 04/18/23 03:34 04/18/23 04:05 Lorazepam 1 Mg Tablet PO 04/18/23 03:35 2 mg ONCE ONE Administration Nicotine Polacrilex 4 mg 04/17/23 20:30 04/18/23 06:20 Nicotine Polacrilex Lozenge 4 Mg Lozenge BUCCAL Not Given Q2H LASHA Ondansetron HCl 4 mg 04/17/23 14:49 04/17/23 14:53 Ondansetron Odt 4 Mg Tab.Rapdis TRANSLINGU 04/17/23 14:50 4 mg ONCE ONE Administration Ondansetron HCl 4 mg 04/17/23 18:00 04/17/23 18:48 Ondansetron Hcl 4 Mg/2 Ml Vial IVPUSH 04/17/23 18:01 Not Given ONCE ONE Quetiapine Fumarate 75 mg 04/18/23 09:00 04/18/23 02:04 Quetiapine Fumarate 25 Mg Tablet PO 75 mg DAILY LASHA Administration Critical Care Time Critical Care Time Critical Care Time: Yes Total Critical Care Time: 60 Attestation: I have personally provided critical care time. Time includes review of lab data, radiology results, discussion with consultants, and monitoring for potential decompensation. Intervention performed as documented. Discharge Plan Discharge Clinical Impression: Nausea vomiting and diarrhea, Suicidal ideation Patient Disposition: Home, Self-Care Instructions: Acute Nausea and Vomiting (ED) Prescriptions: No Action methadone [Methadose] 10 mg/mL concentrate 40 mg PO DAILY Rx Instructions: Partial Fill upon patient request. quetiapine 25 mg tablet 75 mg PO DAILY clonidine HCl 0.1 mg tablet 0.1 mg PO DAILY PRN (Reason: Anxiety) melatonin 3 mg tablet 6 mg PO BEDTIME buspirone 10 mg tablet 10 mg PO TID gabapentin 300 mg capsule 600 mg PO TID nicotine (polacrilex) 4 mg lozenge 4 mg PO Q2H aripiprazole 2 mg Tablet 2 mg PO DAILY lorazepam 1 mg Tablet 1 mg PO DAILY PRN (Reason: Anxiety) zolpidem 10 mg Tablet 10 mg PO BEDTIME PRN (Reason: Insomnia) hydroxyzine pamoate 50 mg capsule 50 mg PO TID PRN (Reason: Anxiety) bupropion HCl 150 mg tablet extended release 24 hr 150 mg PO DAILY
[2023-04-17] MEDS: Ondansetron ODT 4 MG TAB.RAPDIS TRANSLINGU (14:53)
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
--- OUTSIDE RECORDS SUMMARY | 2023-04-17 15:14 | XMS_ITS | Continuity of Care Document ---
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 Name Role Phone Not on Staff, PCP Primary Care Physician Unavail able Encounter [facility] Date(s): 01/25/23 - 01/28/[address] [address]- Encounter Diagnosis Polysubstance overdose(Final) - 01/26/23 Discharge Disposition: A-D/C Home Attending Physician: Ryan PARKER, Isdira Weber Admitting Physician: Ryan PARKER, Isidra Weber Referring Physician: Not on Staff, Referring MD [...] 0 Refills, Soft Stop, 08/14/22 9:19:00 EST, Tablet,[facility], Partial fill upon patient request if the prescription is for a schedule II opioid drug., 160, cm, 06/29/22 7:51:00 EST, Heigh... Start Date: 08/14/22 Stop Date: 09/10/22 Status: Ordered emtricitabine-tenofovir disoproxil 200 mg-300 mg oral tablet 1 tablet, By Mouth, Daily, # 27 tablet, 0 Refills, Soft Stop, 08/14/22 9:19:00 EST, Tablet, [facility], Partial fill upon patient [...] II opioiddrug. Start Date: 01/27/23 Status: Ordered melatonin 5 mg oral tablet 1 tablet = 5 mg, By Mouth, Daily at bedtime, PRN for insomnia, Maintenance, 01/27/23 8:18:00 EDT, Tablet, Partial fill upon patient request if the prescription is for a schedule II opioid drug. Start Date: 01/27/23 Status: Ordered Methadone Tablet 50 mg, Tablet, By Mouth, Once, Routine, 01/28/23 9:00:00 EDT, Stop date 01/28/23 9:00:00 EDT Start Date: 01/28/23 Stop Date: 01/28/23 Status: Completed ondansetron 4 mg oral tablet, disintegrating 1 tablet = 4 mg, By Mouth, Every 8 hours, PRN as needed for nausea/vomiting, # 10 tablet, 0 Refills, Maintenance, 08/14/22 13:07:00 EST, DIS Tablet, [facility], Partial fill upon patient request if [...] Health [facility] Informant Normal Confirmed Active Results Radiology Reports * Exam Date Time Procedure Performing Provider Status 01/27/23 11:08 AM Chest 2 Views Frontal and Lat Rachel Turcios (Verified) Notes: (Chest 2 Views Frontal and Lat) Reason For Exam: ETOH;Other: RESULT: Chest 2 Views Frontal and Lat Chest 2 Views Frontal and Lat Hx of Present Illness: OD; Reason: ETOH; Clinical Question(s): Pneumonia; Special Instructions: Repeat xray- last xray with poor inspiratory effort COMPARISON: Multiple prior chest x-rays, the most recent of which is dated 01/26/2023. FINDINGS: LINES AND TUBES: None. LUNGS AND PLEURA: There is improved aeration of the lungs as compared to the most recent prior examination with linear areas of atelectasis both lung bases. No pleural effusion. No pneumothorax. HEART, MEDIASTINUM AND NIKUNJ: Heart is normal in size. Normal mediastinal and hilar contour. BONES AND SOFT TISSUES: No acute abnormality. IMPRESSION: Improved aeration as compared to the prior examination with linear atelectasis in both lung bases. WSN: [id number] Ordering Physician: Lianne Medeiros Dictated By: Gely Rodríguez MD Dictated Date/Time: 01/27/23 11:11 a Reviewed By: Gely Rodríguez MD Signed By: Gely Rodríguez MD Signed Date/Time: 01/27/23 11:11 am Transcribed By: KAYCEE Transcribed Date/Time: 01/27/23 11:10 am * Exam Date Time Procedure Performing Provider Status 01/26/23 2:29 AM Chest 2 Views Frontal and Lat Herman Polo; Auth (Verified) Notes: (Chest 2 Views Frontal and Lat) Reason For Exam: Angina RESULT: Chest 2 Views Frontal and Lat Chest 2 Views Frontal and Lat HX OF PRESENT ILLNESS: OD; Reason: Angina; Clinical Question(s): CHF COMPARISON: Multiple priors, most recent from 08/14/2022. FINDINGS: LINES AND TUBES: None. LUNGS AND PLEURA: Bilateral hazy opacities may be seen with pulmonary edema, however superimposed pneumonia should beexcluded clinically. No pleural effusion. No pneumothorax. HEART, MEDIASTINUM AND NIKUNJ: Low volume lungs, with resultant crowding of the bronchopulmonary vasculature. BONES AND SOFT TISSUES: No acute abnormality. Gastric distention. IMPRESSION: Bilateral hazy opacities may be seen with pulmonary edema, however superimposed pneumonia should beexcluded clinically. I have personally reviewed the images and I agree with this report. WSN: [id number] Ordering Physician: Candida Rios Dictated By: Rashawn Hilliard MD Dictated Date/Time: 01/26/23 8:34 am Reviewed By: Rose Palacios MD Signed By: Rose Palacios MD Signed Date/Time: 01/26/23 8:39 am Transcribed By: KAYCEE Transcribed Date/Time: 01/26/23 7:46 am Vital Signs Most recent to oldest [Reference Range]: 1 2 3 Oxygen Saturation [94-100 %] 98 % (01/28/23 11:38 AM) 99 % (01/28/23 8:22 AM) 99 % (01/28/23 7:08 AM) Pulse Rate [55-90 bpm] 76 bpm (01/28/23 11:38 AM) 68 bpm (01/28/23 10:38 AM) 72 bpm (01/28/23 8:22 AM) Blood Pressure [90-138/55-84 mm Hg] 114/74mm Hg (01/28/23 11:38 AM) 107/69mm Hg (01/28/23 10:38 AM) 106/75mm Hg (01/28/23 8:22 AM) Respiratory Rate [16-30 br/min] 16 br/min (01/28/23 11:38 AM) 15 br/min *L* (01/28/23 10:38 AM) 16 br/min (01/28/23 8:26 AM) Temperature [96.8-100.4 DegF] 98.1 DegF (01/28/23 11:38 AM) 98 DegF (01/28/23 10:38 AM) 98.1 DegF (01/28/23 8:22 AM) Liters per Minute 2 L/min (01/26/23 2:03 AM) 2 L/min (01/25/23 11:44 PM) 2 L/min (01/25/23 11:44 PM) Mode of Delivery (Oxygen) Room air (01/28/23 11:38 AM) Room air (01/28/23 8:22 AM) Room air (01/28/23 7:08 AM) Blood pressure sites Arm, right (01/28/23 11:38 AM) Arm, right (01/28/23 8:22 AM) Arm, left (01/28/23 7:08 AM) Temperature Route Oral (01/28/23 11:38 AM) Oral (01/28/23 10:38 AM) Oral (01/28/23 8:22 AM) Social History Social History Type Response Tobacco Use: 4 or less cigar ettes(less than 1/4 pack)/day in last 30 days. Sex EKG study * Event Display: ECG 12-Lead Authored Date: Please click on pdf link to open report * Event Display: ECG 12-Lead Authored Date: Ventricular Rate: 108 BPM Atrial Rate: 108 BPM P-R Interval: 134 ms QRS Duration: 80 ms Q-T Interval: 356 ms QTC Calculation(Bazett): 477 ms P Hartman: 47 degrees R Hartman: 62 degrees T Hartman: 16 degrees Sinus tachycardia Otherwise normal ECG When compared with ECG of 25-NOV-2022 11:35, Vent. rate has increased BY 54 BPM Non-specific change in ST segment in Anterior leads Confirmed by FABIO ROBLES MD ([id number]) on 01/26/2023 9:40:57 AM [place]: FABIO ROBLES MD Laboratory * RUDDYSPowergeerimick , CIS S: TRANSCRIBE Gely Rodríguez MD: VERIFY Event Display: Result: Authored Date: Chest 2 Views Frontal and Lat Hx of Present Illness: OD; Reason: ETOH; Clinical Question(s): Pneumonia; Special Instructions: Repeat xray- last xray with poor inspiratory effort COMPARISON: Multiple prior chest x-rays, the most recent of which is dated 01/26/2023. FINDINGS: LINES AND TUBES: None. LUNGS AND PLEURA: There is improved aeration of the lungs as compared to the most recent prior examination with linear areas of atelectasis both lung bases. No pleural effusion. No pneumothorax. HEART, MEDIASTINUM AND NIKUNJ: Heart is normal in size. Normal mediastinal and hilar contour. BONES AND SOFT TISSUES: No acute abnormality. IMPRESSION: Improved aeration as compared to the prior examination with linear atelectasis in both lung bases. WSN: [id number] Ordering Physician: Lianne Medeiros Dictated By: Gely Rodríguez MD Dictated Date/Time: 01/27/23 11:11 a Reviewed By: Gely Rodríguez MD Signed By: Gely Rodríguez MD Signed Date/Time: 01/27/23 11:11 am Transcribed By: KAYCEE Transcribed Date/Time: 01/27/23 11:10 am * RUDDYSPjersonbe , CIS S: TRANSCRIBE Rose Palacios MD: VERIFY Rashawn Hilliard MD: SIGN Event Display: Result: Authored Date: [id number] Chest 2 Views Frontal and Lat HX OF PRESENT ILLNESS: OD; Reason: Angina; Clinical Question(s): CHF COMPARISON: Multiple priors, most recent from 08/14/2022. FINDINGS: LINES AND TUBES: None. LUNGS AND PLEURA: Bilateral hazy opacities may be seen with pulmonary edema, however superimposed pneumonia should beexcluded clinically. No pleural effusion. No pneumothorax. HEART, MEDIASTINUM AND NIKUNJ: Low volume lungs, with resultant crowding of the bronchopulmonary vasculature. BONES AND SOFT TISSUES: No acute abnormality. Gastric distention. IMPRESSION: Bilateral hazy opacities may be seen with pulmonary edema, however superimposed pneumonia should beexcluded clinically. I have personally reviewed the images and I agree with this report. WSN: [id number] Ordering Physician: Candida Rios Dictated By: Rashawn Hilliard MD Dictated Date/Time: 01/26/23 8:34 am Reviewed By: Rose Palacios MD Signed By: Rose Palacios MD Signed Date/Time: 01/26/23 8:39 am Transcribed By: KAYCEE Transcribed Date/Time: 01/26/23 7:46 am Patient Care team information Care Team Personnel Name: Lucrecia Burrell Position: [facility] RN Member Role: Primary Care Nurse Name: Alyssa Becerril RN Position: [facility] RN Member Role: Primary Care Nurse Name: Kimbrely Mejia Position: [facility] RN Member Role: Primary Care Nurse Name: Eric Cheek DO Position: [facility] PLASTIC AND RECONSTRUCTIVE SURGEON MD Member Role: Lifetime PLASTIC AND RECONSTRUCTIVE SURGEON Physician Address: Address: [address] [place] [address] [employer] [place] [address]- Name: Nirmala Pugh RN Position: [facility] RN Member Role: Primary Care Nurse Name: Not on Staff, PCP Position: [facility] Physician (General Medicine) Member Role: PCP Name: Yvette Mukherjee RN Position: [facility] RN Member Role: Primary Care Nurse Name: Rin Galloway RN Position: S RN Member Role: Primary Care Nurse Name: *[facility], ED Attending Position: [facility] ED Attendings Patient Name: Merrick Boone Position: [facility] ED [facility] Member Role: Radiator Cleaner Name: Berkley Hendrix RN Position: [facility] ED RN W/OE and Tasks Member Role: Patient Care Provider Name: Jenny Archibald RN Position: [facility] ED RN W/OE and Tasks Member Role: Patient Care Provider Name: Ryan PARKER, Isidra Weber Position: [facility] ED Medicine MD Member Role: Admitting Physician Address: Address: [address] [place] [address] [place] [address]- [place] Care Team Related Persons Name: BINHCRYSTAL AMIN Address: home [address] [place] [id number] Name: PER PT, NO ONE Name: ANDI SEWELL Address: home [address] [place] [address]
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
--- OUTSIDE RECORDS SUMMARY | 2023-04-17 15:14 | XMS_ITS | Continuity of Care Document ---
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 Role Phone Not on Staff, PCP Primary Care Physician Unavail able Encounter [facility] Date(s): 11/25/22 - 11/27/[address] [address]- Discharge Disposition: A-D/C Home Attending Physician: Wilder PARKER, Rosales Cervantes Admitting Physician: Rosales Hdz MD Referring Physician: Not on Staff, Referring MD Allergies, Adverse Reactions, Alerts Substance Reaction Severity Status amoxicillin anaphylaxis Persistent Severe Active penicillin Active aspirin itching/rash Persistent Mild Active shellfish 1 anyphalaxis Persistent Severe Active Bactrim Active Latex anaphylaxis Persistent Severe Active traMADol anyphylaxis Persistent Severe Active Tylenol 2 Active 1Pt discovered allergy after eating clams. [...] Given 1Admin Note: VIS given 09/15/11 Medications dolutegravir 50 mg oral tablet 1 tablet = 50 mg, By Mouth, Daily, # 27 tablet, 0 Refills, Soft Stop, 08/14/22 9:19:00 EST, Tablet,[facility], Partial fill upon patient request if the prescription is for a schedule II opioid drug., 160, cm, 06/29/22 7:51:00 EST, Heigh... Start Date: 08/14/22 Stop Date: 09/10/22 Status: Ordered emtricitabine-tenofovir disoproxil 200 mg-300 mg oral tablet 1 tablet, By Mouth, Daily, # 27 tablet, 0 Refills, Soft Stop, 08/14/22 9:19:00 EST, Tablet, [facility], Partial fill upon patient request if the prescription is for a schedule II opioiddrug., 1 tablet By Mouth Daily,x27 days, 160, cm, 1... Start Date: 08/14/22 Stop Date: 09/10/22 Status: Ordered Methadone Tablet 40 mg, Tablet, By Mouth, Once, Routine, 11/27/22 10:00:00 EDT, Stop date 11/27/22 10:00:00 EDT Start Date: 11/27/22 Stop Date: 11/27/22 Status: Completed metroNIDAZOLE 500 mg oral tablet 1 tablet = 500 mg, By Mouth, Every 12 hours, # 14 tablet, 0 Refills, Soft Stop, 08/14/22 9:19:00 EST, Tablet, [facility], Partial fill upon patient [...] Refills, Maintenance, 08/14/22 13:07:00 EST, DIS Tablet, [facility], Partial fill upon patient request if the prescription is for a schedule II o... Start Date: 08/14/22 Status: Ordered Problem List Condition Confirmation Course Effective Dates Status Health St atus Informant Normal Confirmed Active Results Orders for Microbiology Reports Name Date Urine Culture (URINE CULTURE) 11/26/22 Blood Culture 11/25/22 Blood Culture #2 11/25/22 Microbiology Reports TEST:Urine Culture STATUS:Auth (Verified) BODY SITE: SOURCE:URINE COLLECTED DATE/TIME:11/26/22 3:33 AM Urine Culture SPECIMEN DESCRIPTION : URINE SPECIAL REQUESTS : NONE CULTURE : NO GROWTH REPORT STATUS : FINAL 11/27/2022 TEST:Blood Culture STATUS:Unauthenticated BODY SITE: SOURCE:Blood COLLECTED DATE/TIME:11/25/22 2:50 PM Blood Culture SPECIMEN DESCRIPTION : BLOOD LEFT HAND SPECIAL REQUESTS : NONE CULTURE : NO GROWTH AFTER 48 HOURS REPORT STATUS : PRELIMINARY REPORT TEST:Blood Culture, Second Order STATUS:Unauthenticated BODY SITE: SOURCE:Blood COLLECTED DATE/TIME:11/25/22 2:44 PM Blood Culture, Second Order SPECIMEN DESCRIPTION : BLOOD RIGHT HAND SPECIAL REQUESTS : NONE CULTURE : NO GROWTH AFTER 48 HOURS REPORT STATUS : PRELIMINARY REPORT Radiology Reports * Exam Date Time Procedure Performing Provider Status 11/25/22 1:[address] Abd/Pelvis W/ IV Contrast Only Digna León; Auth (Verified) Notes: (CT Abd/Pelvis W/ IV Contrast Only) Reason For Exam: LLQ abdominal pain;Other: RESULT: CT Abd/Pelvis W/ IV Contrast Only CT Abd/Pelvis W/ IV Contrast Only Hx of Present Illness: pt presents to ed via ems, pt was found by pd sleeping in apartment [facility], pt very lethargic but arousable, denies drugs or etoh use today. pt not speaking much. vss.; Reason: Other:; LLQ abdominal pain; Clinical Question(s): Appendicitis; Order Comment: TECHNIQUE: Spiral CT through the abdomen and pelvis with IV contrast formatted in 3 planes. 75 cc of Omnipaque 300 was administered intravenously. This study was performed without oral contrast. Weight-based protocol using automatic tube modulation was used to optimize exposure parameters. CTDIvol Body: 6.56 mGy, DLP Body: 327 mGy*cm. COMPARISON: 02/04/2022 FINDINGS: The heart is normal in size. There is no pericardial effusion. The visualized lung bases are unremarkable. Focal fatty infiltration adjacent to the falciform ligament is seen. The liver is otherwise unremarkable. The gallbladder, spleen, pancreas, and adrenal glands are unremarkable. Symmetric renal contrast enhancement is seen bilaterally. There are no cysts or masses. No hydronephrosis is present. The bladder, uterus, and adnexal structures are unremarkable. The appendix is unremarkable. There is slight asymmetric wall thickening of the ascending colon with adjacent stranding in the fat. No bowel obstruction is noted. There is no free air, free fluid, orlymphadenopathy. The osseous structures are unremarkable. IMPRESSION: Thickening of the right colon with adjacent inflammatory change which could be due to colitis. A critical result message ([place]) has been communicated via the [employer] system on 11/25/2022 1:24 PM, Message ID [id number]. WSN: [id number] Ordering Physician: Tigre Houser Dictated By: Candace Mi MD Dictated Date/Time: 11/25/22 1:24 pm Reviewed By: Candace Mi MD Signed By: Candace Mi MD Signed Date/Time: 11/25/22 1:24 pm Transcribed By: KAYCEE Transcribed Date/Time: 11/25/22 1:20 pm Vital Signs Most recent to oldest [Reference Range]: 1 2 3 Oxygen Saturation [94-100 %] 99 % (11/27/22 3:09 PM) 99 % (11/27/22 11:50 AM) 99 % (11/27/22 4:18 AM) Pulse Rate [55-90 bpm] 70 bpm (11/27/22 3:09 PM) 73 bpm (11/27/22 11:50 AM) 71 bpm (11/27/22 4:18 AM) Blood Pressure [90-138/55-84 mm Hg] 115/62mm Hg (11/27/22 3:09 PM) 117/66mm Hg (11/27/22 11:50 AM) 111/60mm Hg (11/27/22 4:18 AM) Respiratory Rate [16-30 br/min] 17 br/min (11/27/22 3:09 PM) 18 br/min (11/27/22 11:50 AM) 17 br/min (11/27/22 9:42 AM) Temperature [96.8-100.4 DegF] 98 DegF (11/27/22 3:09 PM) 97.6 DegF (11/27/22 1:53 AM) 97.9 DegF (11/25/22 6:55 PM) Mode of Delivery (Oxygen) Room air (11/27/22 3:09 PM) Room air (11/27/22 11:50 AM) Room air (11/27/22 4:18 AM) Blood pressure sites Arm, right (11/25/22 6:55 PM) Arm, right (11/25/22 12:45 PM) Arm, left (11/25/22 11:47 AM) Temperature Route Oral (11/27/22 3:09 PM) Oral (11/27/22 1:53 AM) Oral (11/25/22 6:55 PM) Social History Social History Type Response Tobacco Use: 4 or less cigar ettes(less than 1/4 pack)/day in last 30 days. Sex EKG study * Event Display: ECG 12-Lead Authored Date: Please click on pdf link to open report * Event Display: ECG 12-Lead Authored Date: Ventricular Rate: 54 BPM Atrial Rate: 54 BPM P-R Interval: 122 ms QRS Duration: 72 ms Q-T Interval: 468 ms QTC Calculation(Bazett): 443 ms P [place]: 55 degrees R [place]: 75 degrees T [place]: 47 degrees Sinus bradycardia Poor data quality, interpretation may be adversely affected Otherwise normal ECG When compared with ECG of 14-AUG-2022 02:41, Vent. rate has decreased BY 27 BPM Confirmed by KIMBERLY MCKEON MD ([id number]) on 11/25/2022 12:20:41 PM [place]: KIMBERLY MCKEON MD Note * Strokes DO, Berkley L: PERFORM Event Display: Patient Education Leaflets Authored Date: [id number] [facility] - If you need a Doctor or Clinic ?? 34 If You Need a Doctor or Clinic ?? Call [facility] PCP Assignment Line to help you find a doctor:?? [phone] ?? Clinics in [place], [place] For a full list of clinics:? [email or web address] ?? [facility]? [address] [phone] [facility]?[address]?[phone] [facility]?[address][phone] [facility]?[address][phone] [facility]?[address] [phone] [facility]?[address][phone] [facility]?[address][phone] [facility]?[address] [phone] [facility]? [address][phone] [facility]?[address][phone] [facility]?[address][phone] [facility]?[address][phone] [facility]?[address][phone] [facility]? [address][phone] [facility]?[address][phone] ? CT Abdomen and Pelvis W contrast IV * BHSPowerscribe , CIS S: TRANSCRIBE Shmuel PARKER , Candace M: VERIFY Event Display: Result: Authored Date: CT Abd/Pelvis W/ IV Contrast Only Hx of Present Illness: pt presents to ed via ems, [facility] pt very lethargic but arousable, denies drugs or etoh use today. pt not speaking much. vss.; Reason: Other:; LLQ abdominal pain; Clinical Question(s): Appendicitis; Order Comment: TECHNIQUE: Spiral CT through the abdomen and pelvis with IV contrast formatted in 3 planes. 75 cc of Omnipaque 300 was administered intravenously. This study was performed without oral contrast. Weight-based protocol using automatic tube modulation was used to optimize exposure parameters. CTDIvol Body: 6.56 mGy, DLP Body: 327 mGy*cm. COMPARISON: 02/04/2022 FINDINGS: The heart is normal in size. There is no pericardial effusion. The visualized lung bases are unremarkable. Focal fatty infiltration adjacent to the falciform ligament is seen. The liver is otherwise unremarkable. The gallbladder, spleen, pancreas, and adrenal glands are unremarkable. Symmetric renal contrast enhancement is seen bilaterally. There are no cysts or masses. No hydronephrosis is present. The bladder, uterus, and adnexal structures are unremarkable. The appendix is unremarkable. There is slight asymmetric wall thickening of the ascending colon with adjacent stranding in the fat. No bowel obstruction is noted. There is no free air, free fluid, orlymphadenopathy. The osseous structures are unremarkable. IMPRESSION: Thickening of the right colon with adjacent inflammatory change which could be due to colitis. A critical result message ([place]) has been communicated via the [employer] system on 11/25/2022 1:24 PM, Message ID [id number]. WSN: [id number] Ordering Physician: Tigre Houser Dictated By: Candace Mi MD Dictated Date/Time: 11/25/22 1:24 pm Reviewed By: Candace Mi MD Signed By: Candace Mi MD Signed Date/Time: 11/25/22 1:24 pm Transcribed By: KAYCEE Transcribed Date/Time: 11/25/22 1:20 pm Patient Care team information Care Team Personnel Name: Lucrecia Burrell Position: S RN Member Role: Primary Care Nurse Name: Alyssa Becerril RN Position: S RN Member Role: Primary Care Nurse Name: Kimberly Mejia Position: S RN Member Role: Primary Care Nurse Name: Eric Cheek DO Position: [facility] EMT I/99 MD Member Role: [employer] EMT I/99 Physician Address: Address: [address] [place] [address] [facility] [employer] [address]- Name: Nirmala Pugh RN Position: S RN Member Role: Primary Care Nurse Name: Not on Staff, PCP Position: [facility] Physician (General Medicine) Member Role: PCP Name: Yvette Mukherjee RN Position: S RN Member Role: Primary Care Nurse Name: Inez Moreno RN Position: [facility] RN Member Role: Primary Care Nurse Name: Rin Galloway RN Position: [facility] RN Member Role: Primary Care Nurse [facility] Attending Position: [facility] ED Attendings Patient Name: Rosales Hdz MD Position: [facility] ED Medicine MD Member Role: Admitting Physician Address: Address: [address] [place] [id number] Name: Karthik Mays Position: [facility] ED TA [facility] Name: Daniella Padilla Position: [facility] ED RN W/OE and Tasks Member Role: Patient Care Provider Care Team Related Persons Name: BINHCLAUDIA AMINAR Address: home [address] [place] [address] Name: PER PT, NO ONE Name: ANDI SEWELL Address: home [address] [place] [address]
[2023-04-17 15:23] LABS: MANUAL DIFF FLAG NO
[2023-04-17 15:28] LABS: Basophils Percent Auto 0.3 % (0-2); Hematocrit 39.1 % (37.0-47.0); Hemoglobin 12.5 g/dl (12.0-16.0); Imm Gran Abs Auto 0.04 X10*3/uL (0.00-0.03); Imm Gran Pct Auto 0.4 % (0.0-0.4); Lymphocytes Absolute Auto 0.8 X10*3/uL (1.2-4.9); Lymphocytes Percent Auto 7.8 % (20-40); Mean Corpuscular Hemoglobin 24.3 pg (27.0-33.0); Mean Corpuscular Volume 75.9 fL (80.0-98.0); Monocytes Absolute Auto 0.2 X10*3/uL (0.1-1.2); Monocytes Percent Auto 2.1 % (2-11); Neutrophils Absolute Auto 9.1 x10*3/uL (2.0-8.3); Neutrophils Percent Auto 89.4 % (45-73); Platelet Count 444 X10*3/uL (160-400); Red Blood Count 5.15 X10*6/uL (4.20-5.50); Red Cell Distribution Width 16.2 % (11.0-16.0); White Blood Count 10.2 X10*3/uL (4.8-10.8)
[2023-04-17 15:43] LABS: Lactic Acid 1.9 mmol/L (0.5-2.0)
[2023-04-17 15:46] LABS: COVID-19 Test Negative (Negative); IDNOW Serial# 08D9AD1C
[2023-04-17 15:48] LABS: Alanine Aminotransferase 23 U/L (0-31); Albumin Level 4.7 g/dL (3.5-5.0); Alkaline Phosphatase 104 U/L (39-117); Anion Gap 16 (12-20); Aspartate Amino Transferase 25 U/L (5-31); Bilirubin Total 0.5 mg/dL (0.0-1.0); Blood Urea Nitrogen 18 mg/dL (9-16); Calcium 10.4 mg/dL (8.4-10.2); Carbon Dioxide 23 mmol/L (22-29); Chloride 103 mmol/L (96-108); Creatinine Clr Calc Pharmacy 87.4; Estimated Glomerular Filt Rate > 60; Glucose Random 122 mg/dL (60-115); Lipase 16 U/L (8-78); Sodium 138 mmol/L (135-145); Total Protein 9.1 g/dL (6.5-8.0)
[2023-04-17 16:03] VITALS: RESP 18
[2023-04-17] MEDS: 0.9 % Sodium Chloride 1,000 ML 999 ML IV (16:14)
[2023-04-17 16:55] LABS: OBS Int Ctl Valid YES; OBS1 NEGATIVE (NEGATIVE)
[2023-04-17 18:00] VITALS: BP 117/80; PULSE 79; RESP 16; TEMP 36.5; O2SAT 93
--- NOTE | 2023-04-17 18:06 | PC.NURSE ---
pt expressing that she would like to consult the crisis team. pt expresses thoughts of self harm but does not have a plan. pt stated the last time she had these thoughts were yesterday. pt denies hi at this time. pt states she feels hopelessness and increased depression symptoms. MD aware, crisis eval placed. pt to move to pod once medically cleared.
[2023-04-17 18:15] LABS: Appearance Urine Turbid; Color Urine Yellow; Glucose Urine UA Negative (Negative); Leukocyte Esterase Urine Trace (Negative); Nitrite Urine Negative (Negative); PH 5.5 (5.0-9.0); Specific Gravity - Urine >= 1.030 (1.005-1.025); UMIC TRIGGER UACC YES; Urine Blood Negative (Negative); Urine Ketones Negative (Negative); Urine Protein 30 (1+) mg/dL (Neg-Trace)
[2023-04-17 18:16] LABS: UPreg QC Valid YES; Urine Pregnancy NEGATIVE (NEGATIVE)
--- NOTE | 2023-04-17 18:48 | PC.NURSE ---
report given to Geno in the pod. Pt being changed over currently. Iv removed.
[2023-04-17 19:03] LABS: Amphetamine Screen Urine Not Detected (Not Detect); Barbiturates, Urine Not Detected (Not Detect); Benzodiazepines Screen Urine Not Detected (Not Detect); Cannabinoid Screen Urine Not Detected (Not Detect); Cocaine Screen Urine POSITIVE (Not Detect); Fentanyl, urine POSITIVE (Not Detect); Opiate Screen Urine POSITIVE (Not Detect); Phencyclidine Screen Urine POSITIVE (Not Detect)
[2023-04-17 19:09] LABS: Ethanol < 10 mg/dL
[2023-04-17 19:17] LABS: Bacteria Urine Trace (None Seen); Hyaline Casts Urine >20 /LPF (0-2); RBC Urine 0-2 /HPF (0-2); UACC Culture Trigger YES
[2023-04-17] MEDS: Gabapentin 300 MG CAPSULE 600 MG PO (20:47)
[2023-04-17] MEDS: Melatonin 3 MG TABLET 6 MG PO (20:47)
[2023-04-17] MEDS: busPIRone HCl 10 MG TABLET PO (20:47)
[2023-04-17] MEDS: methADONE HCl 20 MG/2 ML ORAL.CONC 40 MG PO (20:48)
[2023-04-17 23:09] VITALS: BP 110/80; PULSE 76; RESP 17; TEMP 36.5; O2SAT 95
[2023-04-18] MEDS: QUEtiapine Fumarate 25 MG TABLET 75 MG PO (02:04)
[2023-04-18] MEDS: LORazepam 1 MG TABLET 2 MG PO (04:05)
--- NOTE | 2023-04-18 05:13 | PC.NURSE ---
Patient is currently in bed appears sleeping, patient struggle to to fall sleep, Seroquel 75 mg administered in addition to her nighttime medication with minimal effect, Ativan 2 mg PO administered at 0405 with + effect, methadone dose verified/administered, patient got assessed by care team disposition is Respite Bed Search, VSS, behavior non concerning, will continue to monitor.
--- NOTE | 2023-04-18 07:09 | PC.NURSE ---
this RN assumed care of pt. respirations even and unlabored. pt sleeping at this time. breakfast at bedside. safety measures in place. [address] at this time.
--- NOTE | 2023-04-18 08:39 | PC.NURSE ---
this RN offered pt her 9AM medications. pt states she would like to wait until she eats her breakfast. pt is currently resting in bed and not making any attempt to eat her breakfast at this time.
--- NOTE | 2023-04-18 09:30 | PC.NURSE ---
assumed care. 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 no respir distress.
[2023-04-18 09:48] VITALS: BP 104/68; PULSE 69; RESP 16; TEMP 36.6; O2SAT 97
--- NOTE | 2023-04-18 09:50 | PC.NURSE ---
pt declined meds at this time- asked to hold until after breakfast. eating
--- NOTE | 2023-04-18 09:55 | PC.NURSE ---
eating breakfast. denies SI/HI/self-harm thoughts or behaviors. Denies N/V/d/abdominal pain. No AH/VH. VSS. aox4.
--- NOTE | 2023-04-18 10:05 | HE.PHANOTE ---
RE METHADONE PT GETS 40MG METHADONE LAST DOSED AT [facility] 04/16 @0900 [facility]
--- NOTE | 2023-04-18 10:18 | MHC.CARE ---
faxed referral adult crisis stabilization bed/ respite bed to [facility].
--- NOTE | 2023-04-18 11:15 | PC.NURSE ---
pt sleep with normal respiration rate. will offer meds again when wakes up per pt request. calm. no distress
--- NOTE | 2023-04-18 12:12 | PC.NURSE ---
[facility] on phone w care team re: coordinate of transition to [facility] respite.
[2023-04-18 12:19] VITALS: BP 107/68; PULSE 72; RESP 18; TEMP 36.3; O2SAT 97
[2023-04-18] MEDS: Gabapentin 300 MG CAPSULE 600 MG PO (12:22)
[2023-04-18] MEDS: methADONE HCl 20 MG/2 ML ORAL.CONC 40 MG PO (12:23)
--- NOTE | 2023-04-18 13:18 | PC.NURSE ---
pt showering. edmund care team worker will be seeing pt to waiting room to wait with her for [employer] upon discharge. no distress. calm, coopeartive.
--- NOTE | 2023-04-18 13:39 | PC.NURSE ---
safely in [facility] escorted by care team/rn. belongings w pt. calm, coopeartive. no distress.
== END 2023-04-18 13:42 | disposition home or self-care (01) ==
PROVIDERS: Nurse Practitioner Family; Emergency Provider Emergency Medicine
DX: R45.851 Suicidal ideations (principal); R11.2 Nausea with vomiting, unspecified; R19.7 Diarrhea, unspecified; K62.5 Hemorrhage of anus and rectum; F33.1 Major depressive disorder, recurrent, moderate; F11.20 Opioid dependence, uncomplicated; F19.10 Other psychoactive substance abuse, uncomplicated; F17.210 Nicotine dependence, cigarettes, uncomplicated; Z79.899 Other long term (current) drug therapy
CPT/HCPCS: 74018; 80053; 80307; 81001; 81025; 82272; 83605; 83690; 85025; 87086; 87635; 99285; S9485

== ENCOUNTER 2023-04-19 19:31 | Emergency (ER) | payer OTHER, SELFPAY ==
--- NOTE | 2023-04-19 19:45 | PC.NURSE ---
Addendum entered by Monie Mak RN 04/19/23 20:45: Patient left prior to being seen by providers. Patient was able to tell the tech Carolina that I'm not staying. and provided a urine sample and left prior to RN being able to triage Original Note: Patient left before triage
== END 2023-04-19 20:53 | disposition left against medical advice (07) ==
LOC: HO.ED 20:12
PROVIDERS: Emergency Provider Emergency Medicine
DX: F11.23 Opioid dependence with withdrawal (principal)

== ENCOUNTER 2023-04-19 22:41 | Emergency (ER) | payer OTHER, SELFPAY ==
[2023-04-19 22:50] VITALS: BP 106/58; PULSE 115; O2SAT 100; BMI 26.2
[2023-04-19 22:51] VITALS: BP 96/54; PULSE 93; RESP 14; TEMP 36.2; O2SAT 99
--- NOTE | 2023-04-19 22:52 | MHC.EDTECH ---
Patient changed into [facility]
--- NOTE | 2023-04-19 22:58 | PC.NURSE ---
Pt presents to ED via EMS for an accidental overdose. Pt ingested 2 bags of heroin and an unknown amount of cocaine. PD administered 12mg narcan and pt was A&Ox4, ambulatory on EMS arrival. Pt remained A&O upon arrival at the ED. Pt reports no pain, denies ETOH use. Pt is lethargic, yawning while speaking to me. Also appears agitated, originally refusing cardiac leads and trying to hide under her blankets. Pt eventually allowed us to place leads, and is now resting in bed, waiting ED provider.
--- NOTE | 2023-04-19 23:21 | ED.OVERDOSE ---
HPI - Overdose General Chief Complaint: Overdose Stated Complaint: Heroine OD, 12mg narcan given Time Seen by Provider: 04/19/23 23:02 Source: patient and EMS Mode of arrival: EMS Limitations: no limitations History of Present Illness HPI Narrative: Patient comes to the emergency room via ambulance for an overdose. Patient states she took 2 bags of heroin and unknown amount of cocaine. PD was on scene, gave the patient 12 mg of Narcan intranasal. EMS arrived, patient was alert and oriented x4,, cooperative. Emergency room, patient remained awake and alert, patient states this was an accidental overdose, denies SI or HI. Related Data Home Medications Medication Instructions Recorded Confirmed aripiprazole 2 mg tablet 2 mg PO DAILY 04/17/23 04/17/23 bupropion HCl 150 mg 24 hr tablet, 150 mg PO DAILY 04/17/23 04/17/23 extended release buspirone 10 mg tablet 10 mg PO TID 04/17/23 04/17/23 clonidine HCl 0.1 mg tablet 0.1 mg PO DAILY PRN Anxiety 04/17/23 04/17/23 gabapentin 300 mg capsule 600 mg PO TID 04/17/23 04/17/23 hydroxyzine pamoate 50 mg capsule 50 mg PO TID PRN Anxiety 04/17/23 04/17/23 lorazepam 1 mg tablet 1 mg PO DAILY PRN Anxiety 04/17/23 04/17/23 melatonin 3 mg tablet 6 mg PO BEDTIME 04/17/23 04/17/23 methadone 10 mg/mL oral 40 mg PO DAILY 04/17/23 04/17/23 concentrate (Methadose) nicotine (polacrilex) 4 mg buccal 4 mg PO Q2H 04/17/23 04/17/23 lozenge quetiapine 25 mg tablet 75 mg PO DAILY 04/17/23 04/17/23 zolpidem 10 mg tablet 10 mg PO BEDTIME PRN Insomnia 04/17/23 04/17/23 Allergies Allergy/AdvReac Type Severity Reaction Status Date / Time Penicillins [PENICILLINS] Allergy Severe ANAPHYLAXIS Verified 04/17/23 14:50 soap [SOAP] Allergy Intermediate ITCHING Verified 04/17/23 14:50 aspirin [ASA] Allergy Unknown ANAPHYLAXIS Verified 04/17/23 14:50 cat dander [cats] Allergy Unknown moderately Verified 04/17/23 14:50 severe latex [LATEX] Allergy Unknown ANAPHYLAXIS Verified 04/17/23 14:50 shellfish derived Allergy Unknown Unknown Verified 04/17/23 14:50 tramadol [TRAMADOL] Allergy Unknown HIVES, Rash Verified 10/27/22 22:14 acetaminophen [From Tylenol] Allergy Hives Verified 04/17/23 14:50 Review of Systems Review of Systems: Constitutional : No Weight loss, No Fever, No Chills, No Night Sweats, No Fatigue, No Malaise ENT/Mouth : No Hearing loss, No Ear Pain, No Nasal Congestion, No Sinus Pain, No Hoarseness, No sore throat, No Rhinorrhea, No Swallowing Difficulty Eyes: No Eye Pain, No Swelling, No Redness, No Foreign Body, No Discharge, No Vision Changes Cardiovascular : No Chest Pain, No SOB, No Dyspnea on Exertion, No Orthopnea, No Edema, No Palpitations Respiratory : No Cough, No Sputum, No Wheezing, No Smoke Exposure, No Dyspnea Gastrointestinal : Complaining of Nausea, No Vomiting, No Diarrhea, No Constipation, No abdominal Pain, No Hematochezia, No Melena Genitourinary : no irregular bleeding, No Dysuria, No Urinary Frequency, No Hematuria, No Urinary Incontinence, No Urgency, No Flank Pain, No Urinary Flow Changes, No Hesitancy Musculoskeletal : No joint pain, No Myalgias, No Joint Swelling Skin : No Skin Lesions, No rash Neuro : No Weakness, No Numbness, No Paresthesias, No Loss of Consciousness, No Dizziness, No Headache Psych : No Anxiety/Panic, patient has history of depression, no SI or HI, admits using heroin and cocaine Heme/Lymph: No Bruising, No Bleeding,No Lymphadenopathy Endocrine : No Polyuria, No Polydipsia, No Temperature Intolerance [facility] Past Medical History Medical History Abscess of left arm Left arm cellulitis Substance abuse Social History Social History Household Members: None Housing: Homeless Do you presently have visiting nurse or other home services: No Alcohol intake: never Patient Tobacco Use Status: Current everyday Tobacco user Tobacco use type: Cigarette Cigarette Packs Per Day: 0.5 Cigarettes Per Day: 10.0 Smoked in Last 30 Days: No e-Cigarette/Vaping Use: Never Used Second Hand Smoke Exposure: No Use of substances other than those prescribed or required for medical reasons: Yes Substance Use Type: Crack/Cocaine and Heroin Substance Use Frequency: Daily Advance Directives: No Advance Directives Information Provided: No Patient : No service: No Sexual orientation: Straight/Heterosexual Physical Exam Vital Signs: Vital Signs: Last Vital Signs Temp 98.0 F 04/20/23 11:46 Pulse 73 04/20/23 14:55 Resp 16 04/20/23 14:55 BP 105/66 04/20/23 14:55 Pulse Ox 96 04/20/23 14:55 O2 Del Method Room Air 04/20/23 14:55 O2 Flow Rate 2 04/20/23 10:29 BMI result Body Mass Index 26.2 Const: Other: Appearance: Alert. Oriented X3. No acute distress. Eyes: Pupils equal, round and reactive to light. ENT: Pharynx normal. Neck: Normal inspection. Neck supple. No lymph nodes noted. No crepitus CVS: Normal heart rate and rhythm. Pulses normal. Normal S1 and S2 Respiratory: No respiratory distress. Breath sounds normal. No Wheezing. No rales Abdomen: Soft and nontender. No rigidity. No distention. Skin: Skin warm and dry. Normal skin color. Normal skin turgor. Extremities: No lower extremity edema. No Lacerations. No Rash Neuro: Oriented X 3. No motor deficit. No sensory deficit. Moving all extremities. No slurred speech. CN 2 through 12 grossly intact Psych: calm, cooperative, avoids eye contact Course Course Course Narrative: -patient's blood pressure 96/54, on the lower side secondary to narcotic use. Patient asymptomatic. -physician observation started at 23:24 Reevaluation(s) Reevaluation #1: Physician observation discontinued at this time. No acute issues today. calm and sleeping most of the day. Patient seen by addiction medicine. She was dose 20 mg of methadone and will follow up with methadone clinic tomorrow. At this time she is stable for discharge home. She will follow up with [facility] regarding stable housing. Comfortable w/ discharge. Time: 15:27 Medications Administered Discontinued Medications Generic Name Dose Route Start Last Admin Trade Name Freq PRN Reason Stop Dose Admin Methadone HCl 20 mg 04/20/23 14:12 04/20/23 14:30 Methadone Hcl 20 Mg/2 Ml Oral.Conc PO 04/20/23 14:13 20 mg ONCE ONE Administration Naloxone HCl 8 mg 04/19/23 23:28 04/19/23 23:50 Naloxone Hcl Nasal Take Home 4 Mg Verner NOSTRILALT 04/19/23 23:29 8 mg ONCE ONE Administration Ondansetron HCl 4 mg 04/19/23 23:22 04/19/23 23:50 Ondansetron Odt 4 Mg Tab.Rapdis TRANSLINGU 04/19/23 23:23 4 mg ONCE ONE Administration Medical Decision Making Medical Decision Making MDM Narrative: -patient remains alert and oriented x3, oxygen saturation 99% on room air -patient declined sude/care consult -patient provided with home Narcan prior to discharge Differential Diagnosis Differential Diagnoses: The differential diagnosis associated with the presentation includes (Substance abuse, alcohol abuse, depression) Admission/Observation Consideration of admission/observation: Escalation of care including admission/observation considered (Patient will remain under observation until fully awake and sober) Discharge Plan Discharge Clinical Impression: Drug overdose Patient Disposition: Home, Self-Care Instructions: Adult Overdose (ED) Additional Instructions: do not use drugs, they can kill you recommend detox you were given methadone 20 mg today on 04/20/23 follow up with the methadone clinic and [facility] If you develop new or worsening symptoms call 911 or come back to the ER for further evaluation. Prescriptions: No Action methadone [Methadose] 10 mg/mL concentrate 40 mg PO DAILY Rx Instructions: Partial Fill upon patient request. quetiapine 25 mg tablet 75 mg PO DAILY clonidine HCl 0.1 mg tablet 0.1 mg PO DAILY PRN (Reason: Anxiety) melatonin 3 mg tablet 6 mg PO BEDTIME buspirone 10 mg tablet 10 mg PO TID gabapentin 300 mg capsule 600 mg PO TID nicotine (polacrilex) 4 mg lozenge 4 mg PO Q2H aripiprazole 2 mg Tablet 2 mg PO DAILY lorazepam 1 mg Tablet 1 mg PO DAILY PRN (Reason: Anxiety) zolpidem 10 mg Tablet 10 mg PO BEDTIME PRN (Reason: Insomnia) hydroxyzine pamoate 50 mg capsule 50 mg PO TID PRN (Reason: Anxiety) bupropion HCl 150 mg tablet extended release 24 hr 150 mg PO DAILY
[2023-04-19 23:49] VITALS: BP 97/54; PULSE 92; RESP 22; O2SAT 92
[2023-04-19] MEDS: Naloxone HCl Nasal TAKE HOME 4 MG SPRAY 8 MG NOSTRILALT (23:50)
[2023-04-19] MEDS: Ondansetron ODT 4 MG TAB.RAPDIS TRANSLINGU (23:50)
--- NOTE | 2023-04-19 23:54 | PC.NURSE ---
Dr causey aware of low BP. Pt is lethargic but oriented when woken up. Pt placed in trendelenburg, asleep at this time.
[2023-04-20 02:43] VITALS: BP 95/54; PULSE 60; RESP 14; O2SAT 98
[2023-04-20 05:40] VITALS: BP 93/58; PULSE 58; RESP 18; TEMP 36.6; O2SAT 97
[2023-04-20 06:09] VITALS: BP 96/59; PULSE 57; RESP 18; TEMP 36.8; O2SAT 97
--- NOTE | 2023-04-20 07:40 | PC.NURSE ---
patient is sleeping in bed, respirations equal and unlabored. patient shows no signs of distress
[2023-04-20 10:29] VITALS: BP 107/62; PULSE 65; RESP 16; O2SAT 97
--- NOTE | 2023-04-20 11:18 | PC.NURSE ---
patient has remained asleep, respirations equal and unlabored.
[2023-04-20 11:46] VITALS: BP 106/63; PULSE 81; RESP 18; TEMP 36.7; O2SAT 95
--- NOTE | 2023-04-20 12:33 | PC.NURSE ---
care team came and spoke to patient, plan in place for methadone treatment
[2023-04-20] MEDS: methADONE HCl 20 MG/2 ML ORAL.CONC PO (14:30)
[2023-04-20 14:55] VITALS: BP 105/66; PULSE 73; RESP 16; O2SAT 96
--- NOTE | 2023-04-20 15:08 | HO.SUDE ---
Met with pt in ED22 who is here for OD to complete SUDE. Pt reports being sober for the past month getting treatment at [facility] and [facility], having been treated with 40mg Methadone. Pt informs she used 1 time last night using about 2 bags of heroin nasally leading to OD, pt shares this is her 2nd OD with her last about 6 months ago. Pt at this time would like to receive Methadone and get a last does letter and started with a clinic in order to get treatment with [facility]. T/W reviewed harm reduction and recovery resources with pt, pt has not other questions or concerns at this time.
== END 2023-04-20 16:40 | disposition home or self-care (01) ==
PROVIDERS: Emergency Provider Emergency Medicine
DX: T40.1X1A Poisoning by heroin, accidental (unintentional), initial encounter (principal); F14.10 Cocaine abuse, uncomplicated; Y92.9 Unspecified place or not applicable; Z79.899 Other long term (current) drug therapy; F17.210 Nicotine dependence, cigarettes, uncomplicated; Z71.6 Tobacco abuse counseling
CPT/HCPCS: 99284; 99285

== ENCOUNTER 2023-04-21 03:21 | Emergency (ER) | payer OTHER, SELFPAY ==
[2023-04-21 03:27] VITALS: BP 100/60; PULSE 81; O2SAT 100; BMI 24.2
[2023-04-21 03:32] VITALS: BP 115/75; PULSE 97; RESP 17; TEMP 37.2; O2SAT 96
--- NOTE | 2023-04-21 05:26 | ED.GENADULT ---
HPI - General Adult General Chief complaint: Allergic Reaction Stated complaint: itchy after fruit punch Time Seen by Provider: 04/21/23 05:20 Source: patient Mode of arrival: EMS Limitations: no limitations History of Present Illness HPI narrative: Patient comes to the emergency room complaining of itchiness over. Patient has no hives. However after spoke with the patient, patient states that the real reason that she is here is that she would like to speak to the care team about her mental health, patient complaining of substance abuse and depression. No SI or HI. Related Data Home Medications Medication Instructions Recorded Confirmed aripiprazole 2 mg tablet 2 mg PO DAILY 04/17/23 04/17/23 bupropion HCl 150 mg 24 hr tablet, 150 mg PO DAILY 04/17/23 04/17/23 extended release buspirone 10 mg tablet 10 mg PO TID 04/17/23 04/17/23 clonidine HCl 0.1 mg tablet 0.1 mg PO DAILY PRN Anxiety 04/17/23 04/17/23 gabapentin 300 mg capsule 600 mg PO TID 04/17/23 04/17/23 hydroxyzine pamoate 50 mg capsule 50 mg PO TID PRN Anxiety 04/17/23 04/17/23 lorazepam 1 mg tablet 1 mg PO DAILY PRN Anxiety 04/17/23 04/17/23 melatonin 3 mg tablet 6 mg PO BEDTIME 04/17/23 04/17/23 methadone 10 mg/mL oral 40 mg PO DAILY 04/17/23 04/17/23 concentrate (Methadose) nicotine (polacrilex) 4 mg buccal 4 mg PO Q2H 04/17/23 04/17/23 lozenge quetiapine 25 mg tablet 75 mg PO DAILY 04/17/23 04/17/23 zolpidem 10 mg tablet 10 mg PO BEDTIME PRN Insomnia 04/17/23 04/17/23 Allergies Allergy/AdvReac Type Severity Reaction Status Date / Time Penicillins [PENICILLINS] Allergy Severe ANAPHYLAXIS Verified 04/17/23 14:50 soap [SOAP] Allergy Intermediate ITCHING Verified 04/17/23 14:50 aspirin [ASA] Allergy Unknown ANAPHYLAXIS Verified 04/17/23 14:50 cat dander [cats] Allergy Unknown moderately Verified 04/17/23 14:50 severe latex [LATEX] Allergy Unknown ANAPHYLAXIS Verified 04/17/23 14:50 shellfish derived Allergy Unknown Unknown Verified 04/17/23 14:50 tramadol [TRAMADOL] Allergy Unknown HIVES, Rash Verified 10/27/22 22:14 acetaminophen [From Tylenol] Allergy Hives Verified 04/17/23 14:50 Review of Systems Review of Systems: Constitutional : No Weight loss, No Fever, No Chills, No Night Sweats, No Fatigue, No Malaise ENT/Mouth : No Hearing loss, No Ear Pain, No Nasal Congestion, No Sinus Pain, No Hoarseness, No sore throat, No Rhinorrhea, No Swallowing Difficulty Eyes: No Eye Pain, No Swelling, No Redness, No Foreign Body, No Discharge, No Vision Changes Cardiovascular : No Chest Pain, No SOB, No Dyspnea on Exertion, No Orthopnea, No Edema, No Palpitations Respiratory : No Cough, No Sputum, No Wheezing, No Smoke Exposure, No Dyspnea Gastrointestinal : No Nausea, No Vomiting, No Diarrhea, No Constipation, No abdominal Pain, No Hematochezia, No Melena Genitourinary : no irregular bleeding, No Dysuria, No Urinary Frequency, No Hematuria, No Urinary Incontinence, No Urgency, No Flank Pain, No Urinary Flow Changes, No Hesitancy Musculoskeletal : No joint pain, No Myalgias, No Joint Swelling Skin : Complaining of diffuse itchiness with no rash No Skin Lesions, No rash Neuro : No Weakness, No Numbness, No Paresthesias, No Loss of Consciousness, No Dizziness, No Headache Psych : No Anxiety/Panic, complaining of depression and substance abuse Heme/Lymph: No Bruising, No Bleeding,No Lymphadenopathy Endocrine : No Polyuria, No Polydipsia, No Temperature Intolerance [facility] Past Medical History Medical History Abscess of left arm Left arm cellulitis Substance abuse Social History Social History Household Members: None Housing: Homeless Do you presently have visiting nurse or other home services: No Alcohol intake: never Patient Tobacco Use Status: Current everyday Tobacco user Tobacco use type: Cigarette Cigarette Packs Per Day: 0.5 Cigarettes Per Day: 10.0 e-Cigarette/Vaping Use: Never Used Second Hand Smoke Exposure: No Substance Use Type: Crack/Cocaine and Heroin Advance Directives: No Advance Directives Information Provided: No service: No Sexual orientation: Straight/Heterosexual Physical Exam ED Vital Signs: Vital Signs - 24 hr 04/21/23 03:32 Temperature 98.9 F Pulse Rate 97 Respiratory Rate 17 Blood Pressure 115/75 Pulse Oximetry 96 Oxygen Delivery Method Room Air BMI result Body Mass Index 24.2 Const Other: Appearance: Alert. Oriented X3. No acute distress. Eyes: Pupils equal, round and reactive to light. ENT: Pharynx normal. Neck: Normal inspection. Neck supple. No lymph nodes noted. No crepitus CVS: Normal heart rate and rhythm. Pulses normal. Normal S1 and S2 Respiratory: No respiratory distress. Breath sounds normal. No Wheezing. No rales Abdomen: Soft and nontender. No rigidity. No distention. Skin: Skin warm and dry. Normal skin color. Normal skin turgor. No rash, no erythema Extremities: No lower extremity edema. No Lacerations. No Rash Neuro: Oriented X 3. No motor deficit. No sensory deficit. Moving all extremities. No slurred speech. CN 2 through 12 grossly intact Psych: calm, cooperative, normal affect Course Course Course Narrative: -patient given p.o. Benadryl and prednisone. -patient requesting to be seen by the care team -basic labs pending -care consult pending -patient not on a Section 12 -physician observation started at 05:27 Medical Decision Making Differential Diagnosis Differential Diagnoses: The differential diagnosis associated with the presentation includes (Anxiety, depression, polysubstance abuse) Admission/Observation Consideration of admission/observation: Escalation of care including admission/observation considered (Patient will remain under observation until seen by the care team) Discharge Plan Discharge Clinical Impression: Itch of skin, Depression, Substance abuse Patient Disposition: Still a Patient Prescriptions: No Action methadone [Methadose] 10 mg/mL concentrate 40 mg PO DAILY Rx Instructions: Partial Fill upon patient request. quetiapine 25 mg tablet 75 mg PO DAILY clonidine HCl 0.1 mg tablet 0.1 mg PO DAILY PRN (Reason: Anxiety) melatonin 3 mg tablet 6 mg PO BEDTIME buspirone 10 mg tablet 10 mg PO TID gabapentin 300 mg capsule 600 mg PO TID nicotine (polacrilex) 4 mg lozenge 4 mg PO Q2H aripiprazole 2 mg Tablet 2 mg PO DAILY lorazepam 1 mg Tablet 1 mg PO DAILY PRN (Reason: Anxiety) zolpidem 10 mg Tablet 10 mg PO BEDTIME PRN (Reason: Insomnia) hydroxyzine pamoate 50 mg capsule 50 mg PO TID PRN (Reason: Anxiety) bupropion HCl 150 mg tablet extended release 24 hr 150 mg PO DAILY
[2023-04-21] MEDS: diphenhydrAMINE HCL 25 MG CAPSULE 50 MG PO (05:32)
[2023-04-21] MEDS: predniSONE 20 MG TABLET 60 MG PO (05:34)
[2023-04-21 05:59] VITALS: BP 113/71; PULSE 77; RESP 18; TEMP 37.2; O2SAT 96
[2023-04-21 06:21] LABS: Amphetamine Screen Urine Not Detected (Not Detect); Barbiturates, Urine Not Detected (Not Detect); Benzodiazepines Screen Urine Not Detected (Not Detect); Cannabinoid Screen Urine Not Detected (Not Detect); Cocaine Screen Urine POSITIVE (Not Detect); Fentanyl, urine POSITIVE (Not Detect); Opiate Screen Urine POSITIVE (Not Detect); Phencyclidine Screen Urine POSITIVE (Not Detect)
[2023-04-21 06:28] LABS: Ethanol < 10 mg/dL
[2023-04-21 06:30] LABS: HCG Quantitative < 2 mIU/mL
[2023-04-21 07:28] VITALS: BP 104/66; PULSE 74; RESP 18; TEMP 36.9; O2SAT 94
--- NOTE | 2023-04-21 08:30 | PC.NURSE ---
rn to rn report given to pt aware of plan of care for transfer to the pod.
[2023-04-21 09:04] LABS: Appearance Urine Turbid; Color Urine Dark Yellow; Glucose Urine UA Negative (Negative); Leukocyte Esterase Urine Small (1+) (Negative); Nitrite Urine Negative (Negative); PH 5.5 (5.0-9.0); Specific Gravity - Urine >= 1.030 (1.005-1.025); UMIC TRIGGER UA YES; Urine Blood Negative (Negative); Urine Ketones Trace mg/dL (Negative); Urine Protein 30 (1+) mg/dL (Neg-Trace)
[2023-04-21 09:11] LABS: Bacteria Urine 2+ (None Seen)
[2023-04-21 10:11] LABS: Basophils Percent Auto 0.2 % (0-2); Eosinophils Percent Auto 0.1 % (0-4); Hematocrit 38.2 % (37.0-47.0); Hemoglobin 12.6 g/dl (12.0-16.0); Imm Gran Abs Auto 0.02 X10*3/uL (0.00-0.03); Imm Gran Pct Auto 0.2 % (0.0-0.4); Lymphocytes Absolute Auto 0.7 X10*3/uL (1.2-4.9); Lymphocytes Percent Auto 7.4 % (20-40); MANUAL DIFF FLAG SCAN; Mean Corpuscular Hemoglobin 24.9 pg (27.0-33.0); Mean Corpuscular Volume 75.5 fL (80.0-98.0); Mean Platelet Volume 9.7 fL (9.4-12.3); Monocytes Absolute Auto 0.2 X10*3/uL (0.1-1.2); Monocytes Percent Auto 1.7 % (2-11); Neutrophils Absolute Auto 8.6 x10*3/uL (2.0-8.3); Neutrophils Percent Auto 90.4 % (45-73); Platelet Count 388 X10*3/uL (160-400); Red Blood Count 5.06 X10*6/uL (4.20-5.50); Red Cell Distribution Width 16.5 % (11.0-16.0); SCAN SMEAR FLAG 1; White Blood Count 9.5 X10*3/uL (4.8-10.8)
[2023-04-21 10:20] LABS: Ethanol < 10 mg/dL
[2023-04-21 10:22] LABS: Anion Gap 16 (12-20); Blood Urea Nitrogen 14 mg/dL (9-16); Calcium 9.3 mg/dL (8.4-10.2); Carbon Dioxide 25 mmol/L (22-29); Chloride 99 mmol/L (96-108); Estimated Glomerular Filt Rate > 60; Glucose Random 103 mg/dL (60-115); Potassium 4.1 mmol/L (3.3-5.1); Sodium 136 mmol/L (135-145)
[2023-04-21 10:25] LABS: Acetaminophen LAB < 17 mcg/mL (<30); Salicylate < 5.0 mg/dL (15-30)
[2023-04-21 10:38] LABS: SLIDE REVIEW VERIFIED
--- NOTE | 2023-04-21 12:44 | MHC.RECOVRN ---
Addendum entered by Francisco Conte 04/21/23 16:24: ATS bed search has been exhausted at this time resources provided to follow up from the community. Original Note: This promotion writer met with patient, patient requesting detox. Pt presented to ED from [facility] reporting itching. Pt states has been using crack/patrick and heroin for past 7 days, pt reports daily heroin use IV for past 7 days, 2 bundles daily. Pt reports daily crack/patrick $40 worth. Pt states prior to this one month recovery time, with some success with MTD. Pt reports last use, 1/2 bundle heroin IV, evening of 23. Pt currently reporting restlessness. Pt called [facility]di [facility], [facility], no female beds. Reviewed detox bedsearch process with patient, patient verbalized understanging. Detox bedsearch underway.
--- NOTE | 2023-04-21 14:52 | MHC.CARE ---
Patient was evaluated by the CARE Team, she does not need an inpatient psychiatric admission, referred to the Recovery Team. If a placement is not secured, the plan is for discharge and she can follow up from the community.
--- NOTE | 2023-04-21 18:33 | PC.NURSE ---
Lauren has remained in her room in bed resting for most of the day. Limited engagement with staff she reports she is tired and wants to rest. Appetite fair. No medications requested or received. Lauren denies SI/HI/AVH.
--- NOTE | 2023-04-22 05:37 | PC.NURSE ---
Patient slept through the night, no distress observed/reported, behavior non concerning, exhibits med seeking behavior which is baseline behavior of the patient, med rec completed/pending provider's approval, labs completed/resulted, recovery team coordinating detox bed search, VSS, labs completed/resulted, will continue to monitor.
--- NOTE | 2023-04-22 09:34 | MHC.RECOVRN ---
This scenario writer met with patient prior to discharge. Pt in bed, reports nausea, GI upset, bodyaches. This scenario writer reviewed with ED Provider, to order 30mg MTD. Reviewed plan with ED Pod RN. Pt to get dosed, last dose letter, follow up with Caitlin for [facility] who can help with detox bedsearch and provide transportation, provided pt with bus passes. Pt to continue to get dosed at [facility], MTD referral sent to [facility] Pt verbalized understanding.
[2023-04-22] MEDS: methADONE HCl 20 MG/2 ML ORAL.CONC 30 MG PO (09:46)
== END 2023-04-22 10:55 | disposition home or self-care (01) ==
PROVIDERS: Emergency Provider Emergency Medicine; PCP Nurse Practitioner Primary Care
DX: F33.1 Major depressive disorder, recurrent, moderate (principal); L29.9 Pruritus, unspecified; F17.210 Nicotine dependence, cigarettes, uncomplicated; F11.10 Opioid abuse, uncomplicated; F19.10 Other psychoactive substance abuse, uncomplicated; Z79.899 Other long term (current) drug therapy
CPT/HCPCS: 36415; 80048; 80143; 80179; 80307; 81001; 81003; 84702; 85025; 99285; S9485

== ENCOUNTER 2023-06-11 14:31 | Inpatient (IN) | payer OTHER, SELFPAY ==
--- NOTE | ~2023-06-11 | CT_ITS ---
EXAMINATION: CT HEAD WITHOUT CONTRAST CT FACIAL BONES WITHOUT CONTRAST CT CERVICAL SPINE WITHOUT CONTRAST CLINICAL INFORMATION: Fall. Pain. COMPARISON: None available. TECHNIQUE: Imaging was performed from the skull base to vertex without intravenous administration of contrast. In addition, helical noncontrast CT imaging was acquired through the cervical spine and facial bones and source images were reviewed along with axial reconstructions and sagittal and coronal MPRs. This CT examination was performed using dose optimization techniques as appropriate, variously including the following: *Automated exposure control. *Adjustment of mA and/or kV according to patient size (this includes techniques or standardized protocols for targeted exams where dose is matched to indication/reason for exam; i.e. extremities or head). *Use of iterative reconstruction technique. DLP: 1185 mGy-cm FINDINGS: Head: There is no evidence of acute intracranial hemorrhage or edematous territorial infarction. Holden-white matter differentiation is preserved. There is no abnormal attenuation within the brain parenchyma. The ventricles are normal in morphology and size. No evidence for obstructive hydrocephalus. No abnormal mass effect or midline shift. No extra-axial fluid collections. Small subgaleal hematoma along the lateral aspects of the left parietal bone, measuring up to 0.2 cm in depth. No associated acute osseous calvarial abnormalities. Maxillofacial Bones: No evidence of maxillofacial bone fractures. The zygomatic arches remain intact. No nasal bone fracture. The nasal septum remains midline. No evidence of mandibular or maxillary fracture. The mandibular condyles remain well-seated in their respective temporal articular grooves. Normal appearance of the intraconal and extraconal fat. No evidence of traumatic injury to the extraocular musculature or globes. Mild mucosal thickening of the paranasal sinuses. The mastoid air cells and middle ear cavities are clear. Mild leftward nasal septal deviation. Enamel erosions and periapical lucency associated with the maxillary right 2nd premolar and 2nd molar. Enamel erosions of multiple left-sided maxillary teeth. No layering fluid collections. Cervical Spine: The atlantooccipital and atlantoaxial articulations remain well aligned. Straightening of the normal cervical lordosis. Otherwise, there is anatomic alignment of the vertebral bodies and posterior elements. No evidence of acute fracture or subluxation. The vertebral body heights and disc spaces are maintained. There is no prevertebral soft tissue swelling. The thyroid gland and remaining cervical soft tissues are within normal limits. The lung apices demonstrate no abnormalities. CT/CT cervical spine wo IV con IMPRESSION: 1. No evidence of acute intracranial hemorrhage or edematous territorial infarction. 2. No evidence of acute fracture or traumatic subluxation of the cervical spine. 3. No evidence of acute fracture of the maxillofacial bones. 4. Small left parietal scalp hematoma. No associated osseous calvarial abnormalities. 5. Moderate maxillary odontogenic disease.
--- NOTE | ~2023-06-11 | XR_ITS ---
EXAMINATION: XR KNEE, RIGHT CLINICAL INFORMATION: Pain status post injury COMPARISON: None available. TECHNIQUE: Four views of the right knee. FINDINGS: Medullary femoral diaphyseal relative peripheral scarring foci most consistent with a bone infarct. No fracture or joint effusion. Alignment is anatomic. Joint spaces are maintained. No abnormal soft tissue calcification. XR/XR knee RT 3V IMPRESSION: 1. No acute findings. 2. Medullary femoral diaphyseal bone infarct.
[2023-06-11 14:43] VITALS: BP 140/90; PULSE 80; O2SAT 94
--- NOTE | 2023-06-11 14:44 | ED.GENADULT ---
HPI - General Adult General Chief complaint: Fall Stated complaint: FALL DOWN 5 STAIRS,+HS,DIZZY Time Seen by Provider: 06/11/23 17:57 Related Data Home Medications Medication Instructions Recorded Confirmed aripiprazole 2 mg tablet 2 mg PO DAILY 04/17/23 04/21/23 bupropion HCl 150 mg 24 hr tablet, 150 mg PO DAILY 04/17/23 04/21/23 extended release buspirone 10 mg tablet 10 mg PO TID 04/17/23 04/21/23 clonidine HCl 0.1 mg tablet 0.1 mg PO TID PRN Anxiety 04/17/23 04/21/23 gabapentin 300 mg capsule 600 mg PO TID 04/17/23 04/21/23 hydroxyzine pamoate 50 mg capsule 50 mg PO TID PRN Anxiety 04/17/23 04/21/23 melatonin 3 mg tablet 6 mg PO BEDTIME 04/17/23 04/21/23 quetiapine 25 mg tablet 25 mg PO DAILY 04/17/23 04/21/23 escitalopram oxalate 10 mg tablet 10 mg PO DAILY 04/21/23 04/21/23 lidocaine 5 % topical patch 1 patch topical DAILY 04/21/23 04/21/23 quetiapine 50 mg tablet 50 mg PO BEDTIME 04/21/23 04/21/23 zolpidem 5 mg tablet 5 mg PO BEDTIME 04/21/23 04/21/23 Allergies Allergy/AdvReac Type Severity Reaction Status Date / Time Penicillins [PENICILLINS] Allergy Severe ANAPHYLAXIS Verified 06/11/23 14:46 soap [SOAP] Allergy Intermediate ITCHING Verified 06/11/23 14:46 aspirin [ASA] Allergy Unknown ANAPHYLAXIS Verified 06/11/23 14:46 cat dander [cats] Allergy Unknown moderately Verified 06/11/23 14:46 severe latex [LATEX] Allergy Unknown ANAPHYLAXIS Verified 06/11/23 14:46 shellfish derived Allergy Unknown Unknown Verified 06/11/23 14:46 tramadol [TRAMADOL] Allergy Unknown HIVES, Rash Verified 06/11/23 14:46 acetaminophen [From Tylenol] Allergy Hives Verified 06/11/23 14:46 Review of Systems Review of Systems: Yes all other systems are reviewed and are negative PMFSH Past Medical History Medical History Abscess of left arm Left arm cellulitis Substance abuse Social History Social History Household Members: None Housing: Homeless Do you presently have visiting nurse or other home services: No Alcohol intake: current Alcohol intake frequency: holidays/special occasions only Alcohol type: wine Patient Tobacco Use Status: Current everyday Tobacco user Tobacco use type: Cigarette Cigarette Packs Per Day: 0.5 Cigarettes Per Day: 10.0 Smoked in Last 30 Days: No e-Cigarette/Vaping Use: Never Used Second Hand Smoke Exposure: No Use of substances other than those prescribed or required for medical reasons: Yes Substance Use Type: Heroin Substance Use Frequency: Chronic Longstanding Substance Use Frequency Other:: WAS IN DETOX X 1 WK, LEFT YESTERDAY. Last Used Substance: Days (ago) Any prior treatment program specific to substance use: Yes Advance Directives: No service: No Sexual orientation: Straight/Heterosexual Physical Exam ED Vital Signs: Vital Signs - 24 hr 06/11/23 14:47 Temperature 98 F Pulse Rate 75 Respiratory Rate 18 Blood Pressure 128/75 Pulse Oximetry 94 Oxygen Delivery Method Room Air BMI result Body Mass Index 25.0 Const General: cooperative Orientation/consciousness: patient oriented x3 HENMT Head: Yes normal to inspection, Yes normocephalic and Yes atraumatic Face and sinus: Yes normal facial exam Mouth: Normal oral and palatal mucosa present Throat: Yes posterior oropharynx normal, Yes tonsils normal and Yes uvula midline Eyes General: appearance normal, both eyes and all related structures Neck Neck: Yes normal visual inspection, Yes full ROM and Yes trachea midline Thyroid: Thyroid normal Resp Effort & Inspection: normal respiratory effort, able to speak in complete sentences, no tracheal deviation and symmetric chest movement Auscultation: clear to auscultation bilaterally GI Inspection: Yes normal to inspection and No distended Palpation (GI): Soft to palpation, not firm, nontender and No hepatosplenomegaly present Auscultation: normal bowel sounds General: Yes no CVA tenderness Back/Spine/Pelvis Back: no CVA tenderness Skin Other: multiple abrasions On face, arms, hands, legs. General skin exam: elasticity normal and turgor normal Neuro General: patient oriented x3 Psych Appearance: grossly normal Mental Status: mental status grossly normal Speech and movement: Normal speech and movement present Affect: normal affect Attitude: cooperative Thought process: Normal thought process present Thought content: Normal thought content present Insight: Good insight present (Psych) Judgement: Good judgement present (Psych) Course Course Course Narrative: RME performed by Nani Rutledge PA-C. Patient is a 32 year old assigned female at presenting to the emergency department with a headache and right knee pain after falling down some steps. Patient denies any loss of consciousness. Imaging ordered. Patient placed back in the waiting room pending room availability and results. patient is here today for complaining of pain. Patient reports that she fell down few steps. Patient denies losing any consciousness. Head CT and a CT reviewed. No acute processes. Offered patient ibuprofen for pain. Patient reports that she wants to speak to crisis. Reports that she wants to take medication to end her life. Will speak to charge nurse so patient can be moved to main ED. will give report to Dr. Timmons Discharge Plan Discharge Clinical Impression: Suicidal ideations Patient Disposition: Still a Patient Prescriptions: No Action quetiapine 25 mg tablet 25 mg PO DAILY clonidine HCl 0.1 mg tablet 0.1 mg PO TID PRN (Reason: Anxiety) melatonin 3 mg tablet 6 mg PO BEDTIME buspirone 10 mg tablet 10 mg PO TID gabapentin 300 mg capsule 600 mg PO TID aripiprazole 2 mg Tablet 2 mg PO DAILY hydroxyzine pamoate 50 mg capsule 50 mg PO TID PRN (Reason: Anxiety) bupropion HCl 150 mg tablet extended release 24 hr 150 mg PO DAILY lidocaine 5 % adhesive patch,medicated 1 patch topical DAILY zolpidem 5 mg tablet 5 mg PO BEDTIME escitalopram oxalate 10 mg tablet 10 mg PO DAILY quetiapine 50 mg tablet 50 mg PO BEDTIME
[2023-06-11 14:47] VITALS: BP 128/75; PULSE 75; RESP 18; TEMP 36.6; O2SAT 94; BMI 25.0
--- NOTE | 2023-06-11 18:40 | PC.NURSE ---
pt came in for fall and endorses SI. Pt changed over and moved to POD. Pt belongings in aby
[2023-06-11 19:50] LABS: MANUAL DIFF FLAG NO
[2023-06-11 19:53] LABS: Appearance Urine Turbid; Color Urine Yellow; Glucose Urine UA Negative (Negative); Leukocyte Esterase Urine Negative (Negative); Nitrite Urine Negative (Negative); PH 5.5 (5.0-9.0); Specific Gravity - Urine 1.025 (1.005-1.025); Urine Blood Negative (Negative); Urine Ketones Negative (Negative); Urine Protein Trace mg/dL (Neg-Trace)
[2023-06-11 19:56] LABS: UPreg QC Valid YES; Urine Pregnancy NEGATIVE (NEGATIVE)
[2023-06-11 20:00] LABS: Amphetamine Screen Urine Not Detected (Not Detect); Barbiturates, Urine POSITIVE (Not Detect); Benzodiazepines Screen Urine Not Detected (Not Detect); Cannabinoid Screen Urine Not Detected (Not Detect); Cocaine Screen Urine POSITIVE (Not Detect); Fentanyl, urine POSITIVE (Not Detect); Opiate Screen Urine POSITIVE (Not Detect); Phencyclidine Screen Urine Not Detected (Not Detect)
[2023-06-11 20:04] LABS: Ethanol < 10 mg/dL
[2023-06-11 20:06] LABS: Alanine Aminotransferase 30 U/L (0-31); Albumin Level 4.6 g/dL (3.5-5.0); Alkaline Phosphatase 104 U/L (39-117); Anion Gap 16 (12-20); Aspartate Amino Transferase 68 U/L (5-31); Bilirubin Total 0.6 mg/dL (0.0-1.0); Blood Urea Nitrogen 13 mg/dL (9-16); Calcium 8.9 mg/dL (8.4-10.2); Carbon Dioxide 22 mmol/L (22-29); Chloride 97 mmol/L (96-108); Creatinine Clr Calc Pharmacy 105.8; Estimated Glomerular Filt Rate > 60; Glucose Random 96 mg/dL (60-115); Potassium 4.2 mmol/L (3.3-5.1); Sodium 131 mmol/L (135-145); Total Protein 8.8 g/dL (6.5-8.0)
[2023-06-11 20:26] LABS: Basophils Percent Auto 0.3 % (0-2); Eosinophils Absolute Auto 0.1 X10*3/uL (0.0-0.4); Eosinophils Percent Auto 0.4 % (0-4); Hematocrit 38.4 % (37.0-47.0); Hemoglobin 12.7 g/dl (12.0-16.0); Imm Gran Abs Auto 0.04 X10*3/uL (0.00-0.03); Imm Gran Pct Auto 0.3 % (0.0-0.4); Lymphocytes Absolute Auto 2.3 X10*3/uL (1.2-4.9); Mean Corpuscular HGB Conc 33.1 g/dl (31.0-35.0); Mean Corpuscular Volume 75.6 fL (80.0-98.0); Mean Platelet Volume 9.6 fL (9.4-12.3); Monocytes Absolute Auto 0.6 X10*3/uL (0.1-1.2); Monocytes Percent Auto 5.4 % (2-11); Neutrophils Absolute Auto 8.9 x10*3/uL (2.0-8.3); Neutrophils Percent Auto 74.6 % (45-73); Platelet Count 547 X10*3/uL (160-400); Red Blood Count 5.08 X10*6/uL (4.20-5.50); Red Cell Distribution Width 16.7 % (11.0-16.0); White Blood Count 11.9 X10*3/uL (4.8-10.8)
--- NOTE | 2023-06-12 05:53 | PC.NURSE ---
Patient slept through the night, no distress observed/reported, behavior non concerning, disposition per care team is section 12 inpatient bed search, med rec completed/currently off her medication, [facility] in [place] called at [phone] for MAR but couldn't provide us one, patient reported that when she was there no psychotropic medication was given to her, labs completed/resulted, VSS, asymptomatic of krishan at this time, will continue to monitor.
[2023-06-12 06:16] VITALS: BP 112/68; PULSE 77; RESP 15; TEMP 37.2; O2SAT 96
--- NOTE | 2023-06-12 07:02 | PC.NURSE ---
patient appears to remain asleep at present respirations are even and unlabored patient appears in no distress
[2023-06-12] MEDS: methADONE HCl 20 MG/2 ML ORAL.CONC 30 MG PO (11:52)
--- NOTE | 2023-06-12 12:11 | PC.NURSE ---
attempted to verify methadone dose w patients clinic, arleen sotrey verified client last dosed there 30mg on 05/23, however they stated client was guest dosing at [facility], client stated she last dosed 06/11 at 35mg, provider allowed for a one time dose of 30mg to assist with apparent withdrawal...cows score 8.
--- NOTE | 2023-06-12 13:22 | PC.NURSE ---
spoke to [facility] who reported clients last date there was 06/09 and unclear that methadone was given that day.
--- NOTE | 2023-06-12 14:50 | PHA.MEDREC ---
Pharmacy Consult ? Medication Reconciliation Pharmacy has completed the medication reconciliation. No recent medication fills
--- NOTE | 2023-06-12 16:45 | MHC.CARE ---
Tw conducted a statewide bed search, assessment has been sent to [facility]. Deana reviewing assessment
--- NOTE | 2023-06-12 17:20 | MHC.CARE ---
?[facility] due to [employer] insurance
[2023-06-12 18:28] VITALS: BP 98/74; PULSE 76; RESP 16; TEMP 36.9; O2SAT 97
[2023-06-12 20:56] LABS: COVID-19 Test Negative (Negative); IDNOW Serial# 08D9AD1C
--- NOTE | 2023-06-13 06:14 | PC.NURSE ---
Patient slept through the night, no distress observed/reported, behavior non concerning, disposition per care team is section 12 inpatient bed search, bed search exhausted yesterday, med rec completed/currently off her medication, labs completed/resulted, VSS, asymptomatic of withdrawal at this time, will continue to monitor.
[2023-06-13 06:32] VITALS: BP 106/71; PULSE 76; RESP 16; TEMP 36.4; O2SAT 98
--- NOTE | 2023-06-13 07:34 | PC.NURSE ---
patient appears to remain asleep at present respirations are even and unlabored patient appears in no distress
[2023-06-13] MEDS: methADONE HCl 20 MG/2 ML ORAL.CONC 30 MG PO (08:03)
[2023-06-13] MEDS: hydrOXYzine HCL 50 MG TABLET PO ×3 (08:03→21:20)
--- NOTE | 2023-06-13 14:01 | HE.PHANOTE ---
recieved methadone verification sheet [facility] [phone] 30 mg po daily, pt was at [facility]?
[2023-06-13] MEDS: LORazepam 1 MG TABLET PO (15:35)
[2023-06-14 00:02] VITALS: RESP 16
--- NOTE | 2023-06-14 00:55 | PC.NURSE ---
Assumed care of patient at 2300, patient sleeping, respirations even and unlabored, no apparent distress
--- NOTE | 2023-06-14 03:39 | PC.NURSE ---
Pt requesting something for anxiety, this RN educated patient that she was not due for Hydroxizine until 6am. Pt requesting Ativan, this RN explained that we would like to stick with Hydroxizine for the time being, pt agreeable to this plan at this time
[2023-06-14] MEDS: LORazepam 1 MG TABLET PO (04:14)
--- NOTE | 2023-06-14 04:16 | PC.NURSE ---
Pt reporting increased anxiety once again, this RN spoke with MD Alvarez who requested this RN put in for one time 1mg Ativan dose. Order put in and medication administered per MAR
[2023-06-14 06:24] VITALS: RESP 16
[2023-06-14 07:37] VITALS: BP 114/74; PULSE 80; RESP 16; TEMP 36.8; O2SAT 95
[2023-06-14] MEDS: methADONE HCl 20 MG/2 ML ORAL.CONC 30 MG PO (08:23)
[2023-06-14] MEDS: hydrOXYzine HCL 50 MG TABLET PO ×2 (09:42→15:10)
--- NOTE | 2023-06-14 10:28 | PC.NURSE ---
Rn Prior Authorization provided updated medication list from [facility]. Med Rec updated.
--- NOTE | 2023-06-14 11:52 | ECG_ITS ---
Test Reason : QT INTERVAL Blood Pressure : / mmHG Vent. Rate : 066 BPM Atrial Rate : 066 BPM P-R Int : 128 ms QRS Dur : 082 ms QT Int : 400 ms P-R-T Axes : 044 066 035 degrees QTc Int : 419 ms Normal sinus rhythm Nonspecific T wave abnormality Abnormal ECG When compared with ECG of 01-JAN-2023 16:09, T wave inversion now evident in Anterior leads Referred By: Yinka Mendoza Electronically Signed By:ALEKSANDER ALCALA MD
--- NOTE | 2023-06-14 12:52 | PHA.MEDREC ---
Pharmacy Consult ? Medication Reconciliation Pharmacy has attempted to complete med rec, however, [facility] is refusing to give patient list. I was told by RN that [facility] gave medication list verbally to that RN. Med rec done by RN should be complete .
[2023-06-14 16:29] VITALS: RESP 18
[2023-06-14 17:41] VITALS: BP 125/82; PULSE 84; TEMP 36.6
--- NOTE | 2023-06-14 17:51 | PC.NURSE ---
Lauren was OOB this AM and given 30mg Methadone PO, She also req/rec PRN Hydroxyzine x2 this shift. Lauren has been calm and cooperative verbalizing a high amount of anxiety. Lauren dose endorse SI without a plan and reported she can be safe while she is in the hospital. Denies HI/AVH. Appetite is fair. Lauren reported she has not been able to eat but did have some of her breakfast and lunch 25% as well as multiple juices. No behavioral concerns. Lauren has taken several showers this shift and is independent with her care. Multiple small lacerations to her face which Lauren reports are the result of a fall. No drainage or signs of infection noted. Lauren has been encouraged to stop picking at the open areas.
[2023-06-14] MEDS: QUEtiapine Fumarate 25 MG TABLET PO (17:57)
[2023-06-14] MEDS: Melatonin 3 MG TABLET 6 MG PO (20:00)
[2023-06-14] MEDS: Gabapentin 300 MG CAPSULE 600 MG PO (20:00)
[2023-06-14] MEDS: diphenhydrAMINE HCL 25 MG CAPSULE 50 MG PO (20:00)
[2023-06-14] MEDS: QUEtiapine Fumarate 50 MG TABLET PO (20:00)
[2023-06-14] MEDS: ARIPiprazole 2 MG TABLET PO (20:00)
--- NOTE | 2023-06-14 21:50 | PC.ADMIT ---
Lauren was admitted to at 1740 from [facility] [place] [place] CV for treatment of? Major Depressive disorder, Opioid use disorder Cocaine use disorder. Pt endorsing SI with plans to overdose on medication or drugs. Per crisis; she reports getting out of the [facility],where she states that she did not get any of her Psych meds all week, pt reports currently not having any of her Psych meds. UTOX positive for Opioids (heroin), barbiturates, and cocaine. Pt is on a COWs. Pt is alert and oriented X4. Pt is calm and cooperative. Pt mood is anxious and depressed. Pt denies AH/VH. Pt does not appear to be responding to internal stimuli. Pt has a linear thought process. Pt denies SI/HI at this time and can come to staff if needed. Pt reports a normal appetite with no recent weight loss. Pt is looking to get medications established and ?be stable.? Pt skin has some lesions on the upper extremities. Pt reports poor sleep, frequently waking. Pt denies complaints. Provider is made aware of admission with orders placed. Monitor for safety and begin treatment plan.?
[2023-06-14] MEDS: Ondansetron ODT 4 MG TAB.RAPDIS TRANSLINGU (21:53)
[2023-06-14] MEDS: cloNIDine HCL 0.2 MG TABLET PO (21:53)
[2023-06-14] MEDS: Baclofen 10 MG TABLET PO (21:53)
[2023-06-15] MEDS: hydrOXYzine HCL 25 MG TABLET PO (02:40)
[2023-06-15] MEDS: cloNIDine HCL 0.1 MG TABLET PO ×3 (02:40→18:56)
[2023-06-15 08:00] VITALS: PULSE 71
[2023-06-15 08:29] VITALS: BP 108/68; PULSE 71; RESP 16; TEMP 36.2; O2SAT 97
[2023-06-15] MEDS: buPROPion HCl XL 150 MG TAB.ER.24H PO (08:31)
[2023-06-15] MEDS: Gabapentin 300 MG CAPSULE 600 MG PO (08:31)
[2023-06-15] MEDS: methADONE HCl 20 MG/2 ML ORAL.CONC 30 MG PO (08:33)
[2023-06-15 08:42] LABS: Estimated Average Glucose 91 mg/dL; Hemoglobin A1c % 4.8 % (<6.0)
[2023-06-15 09:22] LABS: Cholesterol 296 mg/dL (<200); HDL Cholesterol 43 mg/dL (>40); LDL Cholesterol Calculated 227 mg/dL (<100); Magnesium 2.5 mg/dL (1.6-2.6); Triglycerides 133 mg/dL (<150)
[2023-06-15 09:29] LABS: Free T4 (Free Thyroxine) 1.16 ng/dL (0.71-1.85); Thyroid Stimulating Hormone 0.82 uIU/mL (0.32-4.0)
[2023-06-15 09:40] LABS: Folate 12.7 ng/mL (> or = 4.0); Vitamin B12 432 pg/mL (200-900)
[2023-06-15] MEDS: QUEtiapine Fumarate 25 MG TABLET PO (10:23)
[2023-06-15 10:25] VITALS: BP 101/69; PULSE 92
[2023-06-15] MEDS: methADONE HCl 20 MG/2 ML ORAL.CONC 5 MG PO (10:55)
--- NOTE | 2023-06-15 12:20 | P.HPPS_ITS ---
HPI Date of Service: 06/15/23 Chief Complaint: recurrent major depression; opiate/ cocain use d/o Sources of Information: patient interviewed, chart reviewed and crisis/core team assessment reviewed HPI Subjective Notes: [place] Warning and Conditional Voluntary Healthcare Proxy: No Guardianship: No Medical Problems Affecting Mental Status: No Narrative: 32 yo female, hx of recurrent major depression, opiate use disorder to ER s/p fall on stairs with injury. Upon further assessment pt verbalized SI with plan to OD. Reported a recent discharge from [facility]. She was not given her psychiatric medications during her stay (~ 1 week). Reports poor sleep. Met with pt who is cooperative and wanting assistance. I don't know how to stop. Reports using 4 bundles of heroin daily, approximately 3 bundles daily over the past 4 years. By history, Methadone was at 50 mg, today at 30 mg, believes she is having breakthrough sx. Reports severe anxiety, homelessness, and skin/hair picking/pulling. Also believes she has been exposed to STI. Believes that benzodiazepines work best for her, discussed risks and concerns about combination with Methadone. Pt would like to re-establish Methadone, psych med regime and obtain program referral. Past Psychiatric History: [place] [facility] [place], [facility] 04/14 OP: No current [facility] hx- [facility] More Trials: Seroquel, Lexapro, Abilify, Wellbutrin, Gabapentin SIBS- Cutting prior to 01/12 admit Medical Evaluation Reviewed: Yes [facility] Medical History (Updated 06/15/23 @ 21:03 by Trang Albert, MACHINE WEDGER) Polysubstance use disorder Abscess of left arm Left arm cellulitis Substance abuse Family History: adopted, reports hx of childhood trauma, with suicide attempt at 14 yo Social History: Born in [facility]. To [facility] at age 4, adopted Currently homeless Three children who have been adopted by pt's mother Substance History: Heroin, 3 bundles daily over 4 years, recently 4 bundles daily Toxicology positive for opiates, fentanyl, barbiturates, cocaine Trauma History: affirms Diagnostics Vital Signs (24Hr): Vital Signs - 24 hr 06/14/23 16:29 06/14/23 17:41 06/15/23 08:29 Temperature 97.9 F 97.2 F Pulse Rate 84 71 Respiratory Rate 18 16 Blood Pressure 125/82 108/68 Pulse Oximetry 97 Oxygen Delivery Method Room Air 06/15/23 10:25 Temperature Pulse Rate 92 Respiratory Rate Blood Pressure 101/69 Pulse Oximetry Oxygen Delivery Method BMI result Body Mass Index 25.0 Labs 06/11/23 19:41 06/11/23 19:42 Labs: Laboratory Results - last 48 hr 06/15/23 07:50 Estimat Average Glucose 91 Hemoglobin A1c % 4.8 Magnesium 2.5 Triglycerides 133 Cholesterol 296 H LDL Cholesterol, Calc 227 H HDL Cholesterol 43 Vitamin B12 432 Folate 12.7 TSH 0.82 Free T4 1.16 Imaging Radiology Impressions: ITS Impressions Knee X-Ray 06/11/23 15:53 IMPRESSION: 1. No acute findings. 2. Medullary femoral diaphyseal bone infarct. Cervical Spine CT 06/11/23 16:34 IMPRESSION: 1. No evidence of acute intracranial hemorrhage or edematous territorial infarction. 2. No evidence of acute fracture or traumatic subluxation of the cervical spine. 3. No evidence of acute fracture of the maxillofacial bones. 4. Small left parietal scalp hematoma. No associated osseous calvarial abnormalities. 5. Moderate maxillary odontogenic disease. Face CT 06/11/23 16:34 IMPRESSION: 1. No evidence of acute intracranial hemorrhage or edematous territorial infarction. 2. No evidence of acute fracture or traumatic subluxation of the cervical spine. 3. No evidence of acute fracture of the maxillofacial bones. 4. Small left parietal scalp hematoma. No associated osseous calvarial abnormalities. 5. Moderate maxillary odontogenic disease. Head CT 06/11/23 16:34 IMPRESSION: 1. No evidence of acute intracranial hemorrhage or edematous territorial infarction. 2. No evidence of acute fracture or traumatic subluxation of the cervical spine. 3. No evidence of acute fracture of the maxillofacial bones. 4. Small left parietal scalp hematoma. No associated osseous calvarial abnormalities. 5. Moderate maxillary odontogenic disease. Meds/Allergies Meds Home Medications Medication Instructions Recorded Confirmed Type Methadone Intensol 30 mg PO DAILY 06/12/23 06/12/23 History aripiprazole 2 mg tablet 2 mg PO BEDTIME 06/14/23 06/14/23 History bupropion HCl 150 mg 24 hr tablet, 150 mg PO DAILY 06/14/23 06/14/23 History extended release gabapentin 300 mg capsule 600 mg PO TID 06/14/23 06/14/23 History quetiapine 25 mg tablet 25 mg PO DAILY PRN Anxiety 06/14/23 06/14/23 History quetiapine 50 mg tablet 50 mg PO BEDTIME 06/14/23 06/14/23 History Allergies Allergies Allergy/AdvReac Type Severity Reaction Status Date / Time Penicillins [PENICILLINS] Allergy Severe ANAPHYLAXIS Verified 06/11/23 14:46 soap [SOAP] Allergy Intermediate ITCHING Verified 06/11/23 14:46 aspirin [ASA] Allergy Unknown ANAPHYLAXIS Verified 06/11/23 14:46 cat dander [cats] Allergy Unknown moderately Verified 06/11/23 14:46 severe latex [LATEX] Allergy Unknown ANAPHYLAXIS Verified 06/11/23 14:46 shellfish derived Allergy Unknown Unknown Verified 06/11/23 14:46 tramadol [TRAMADOL] Allergy Unknown HIVES, Rash Verified 06/11/23 14:46 acetaminophen [From Tylenol] Allergy Hives Verified 06/11/23 14:46 trazodone AdvReac Severe restless Verified 06/15/23 10:45 legs Mental Status Exam Mental Status Exam Patient Appearance: Fatigued Patient Orientation: Person, Place, Time and Situation Level of Consciousness: Alert Patient Behavior: Talkative and Good Eye Contact Mood Description: Depressed Affect Description: Anxious Patient Cognition Impaired: No Ability to Follow Directions: Good Speech Pattern: Spontaneous Speech Memory Description: Episodic Impaired Hallucinations: None Delusions: Not Present Thought Process: Distracted and Rumination Thought Content: positive for Perseveration and positive for Suicidal Ideation Depressive Symptoms: Increased Anxiety, Insomnia, Difficulty Sleeping, Loss of Int. in Activity, Feelings of Worthlessness, Hopelessness, Isolating- Friends/Family, Feelings of Guilt, Unhappiness, Increased Fatigue, Thoughts of /Suicide, Low Self Esteem, Loss of Energy and Difficulty Concentrating Judgement: Fair Assessment & Plan Assessment & Plan (1) MDD (major depressive disorder), recurrent episode, moderate: Status: Acute Code(s): F33.1 - Major depressive disorder, recurrent, moderate (2) Opioid abuse: Status: Acute Code(s): F11.10 - Opioid abuse, uncomplicated (3) Polysubstance use disorder: Status: Acute Code(s): F19.90 - Other psychoactive substance use, unspecified, uncomplicated Plan 32 yo female, hx of major depression, opiate and polysubstance use disorder, s/p relapse,fall. Recent detox where all of her psychotropics were stopped. 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 Plan: Increase Methadone to 35 mg today. 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 No changes have occurred unless specified. If the History and Physical was not performed prior to admission, the Hospitalist's service will be consulted for completing the admission physical. Time Spent With Patient Time: Total time managing care of this patient today ____ minutes.
[2023-06-15 12:42] LABS: HCG Quantitative < 2 mIU/mL
[2023-06-15] MEDS: OLANZapine 5 MG TABLET PO ×2 (12:45→18:56)
[2023-06-15] MEDS: hydrOXYzine HCL 50 MG TABLET PO ×2 (12:45→20:55)
[2023-06-15] MEDS: Baclofen 10 MG TABLET PO ×2 (13:19→18:56)
[2023-06-15] MEDS: LORazepam 1 MG TABLET PO (13:19)
[2023-06-15] MEDS: Nicotine Polacrilex 2 MG GUM BUCCAL ×2 (13:57→18:56)
[2023-06-15] MEDS: Gabapentin 400 MG CAPSULE 800 MG PO ×2 (15:01→20:55)
[2023-06-15 16:34] LABS: CT PCR DETECTED (Not Detect.); NG PCR NOT DETECTED (Not Detect.)
[2023-06-15 16:37] VITALS: BP 106/63; PULSE 61; TEMP 36.1; O2SAT 100
[2023-06-15] MEDS: Ondansetron ODT 4 MG TAB.RAPDIS TRANSLINGU (18:57)
[2023-06-15] MEDS: diphenhydrAMINE HCL 25 MG CAPSULE 50 MG PO (20:55)
[2023-06-15] MEDS: Melatonin 3 MG TABLET 6 MG PO (20:55)
[2023-06-15] MEDS: Doxycycline Monohydrate 100 MG CAPSULE PO (20:55)
[2023-06-15] MEDS: QUEtiapine Fumarate 50 MG TABLET PO (20:55)
[2023-06-15] MEDS: ARIPiprazole 2 MG TABLET PO (20:55)
[2023-06-16 08:00] VITALS: BP 124/65; PULSE 76; RESP 16; TEMP 36.5; O2SAT 100
[2023-06-16] MEDS: Doxycycline Monohydrate 100 MG CAPSULE PO ×2 (08:25→19:50)
[2023-06-16] MEDS: buPROPion HCl XL 150 MG TAB.ER.24H PO (08:25)
[2023-06-16] MEDS: methADONE HCl 20 MG/2 ML ORAL.CONC 30 MG PO (08:25)
[2023-06-16] MEDS: Multivitamin TABLET 1 TAB PO (08:25)
[2023-06-16] MEDS: Gabapentin 400 MG CAPSULE 800 MG PO ×3 (08:25→19:51)
[2023-06-16 08:27] LABS: Syphilis Screen Nonreactive (Nonreactive)
[2023-06-16] MEDS: cloNIDine HCL 0.1 MG TABLET PO ×2 (08:34→17:34)
[2023-06-16] MEDS: Baclofen 10 MG TABLET PO (08:34)
[2023-06-16 09:36] LABS: Anion Gap 13 (12-20); Blood Urea Nitrogen 12 mg/dL (9-16); Calcium 9.3 mg/dL (8.4-10.2); Carbon Dioxide 24 mmol/L (22-29); Chloride 106 mmol/L (96-108); Creatinine Clr Calc Pharmacy 94.7; Estimated Glomerular Filt Rate > 60; Glucose Random 78 mg/dL (60-115); Potassium 4.2 mmol/L (3.3-5.1); Sodium 139 mmol/L (135-145)
[2023-06-16 10:04] LABS: HBsAGNum1 0.28 S/CO (0.00-0.99); HIV AB/AG Nonreactive (Nonreactive); Hepatitis A Antibody IgM 0.28 Index (0-0.79); Hepatitis B Core Antibody Nonreactive (Nonreactive); Hepatitis B Surface Antigen Negative (Negative); ~HepC Num1 14.33 S/CO (0.00-0.79); ~Hepatitis A Antibody IgM Nonreactive (Nonreactive); ~Hepatitis B Surface Antibody NONREACTIVE (Nonreactive); ~Hepatitis C Antibody Reactive (Nonreactive)
[2023-06-16] MEDS: methADONE HCl 20 MG/2 ML ORAL.CONC PO (10:23)
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
[2023-06-16] MEDS: Nicotine Polacrilex 2 MG GUM BUCCAL ×3 (11:09→19:51)
[2023-06-16] MEDS: Nicotine 21 MG PATCH.TD24 TRANSDERMA (12:04)
[2023-06-16] MEDS: hydrOXYzine HCL 50 MG TABLET PO (12:59)
[2023-06-16 13:41] LABS: BV Int Neg Control Negative (Negative); BV Int Pos Control Positive (Positive)
--- NOTE | 2023-06-16 17:29 | HO.PSYCHPN ---
Subjective Subjective Date of Service: 06/16/23 Reason For Visit: recurrent major depression; opiate/ cocain use d/o Subjective Notes: Conditional Voluntary Healthcare Proxy: No Guardianship: No Medical Problems Affecting Mental Status: No Interim History: Pt reports some improvement. Appreciative of addiction team input. Team reports Deonna asks that pt attend [facility] before being considered for their program as by history she overdosed while in their care. Team plans to apply to [facility], [facility] programs. Discussed testing results with pt who agrees with plan of care. Attending groups this afternoon, participating in [email or web address]. Medication Compliance: Yes Side effects from medications: No Attending Groups: Yes Review of Systems Acute medical concerns: No Medical Review of Systems: unchanged Mental Status Exam Mental Status Exam Patient Appearance: Appropriate Patient Orientation: Person, Place, Time and Situation Level of Consciousness: Alert Patient Behavior: Talkative and Good Eye Contact Mood Description: Anxious Affect Description: Anxious Patient Cognition Impaired: No Ability to Follow Directions: Good Speech Pattern: Spontaneous Speech Memory Description: Episodic Impaired Hallucinations: None Delusions: Not Present Thought Process: Distracted and Rumination Thought Content: positive for Perseveration Depressive Symptoms: Increased Anxiety, Insomnia, Difficulty Sleeping, Loss of Int. in Activity, Feelings of Worthlessness, Hopelessness, Isolating-Friends/Family, Feelings of Guilt, Unhappiness, Increased Fatigue, Low Self Esteem, Loss of Energy and Difficulty Concentrating Judgement: Fair Diagnostics Vital Signs (24Hr): Vital Signs - 24 hr 06/16/23 08:00 Temperature 97.7 F Pulse Rate 76 Respiratory Rate 16 Blood Pressure 124/65 Pulse Oximetry 100 Oxygen Delivery Method Room Air BMI result Body Mass Index 25.0 Labs 06/11/23 19:41 06/16/23 08:10 Labs: Laboratory Results - last 48 hr 06/15/23 06/15/23 06/15/23 07:50 11:44 13:02 Sodium Potassium Chloride Carbon Dioxide Anion Gap BUN Creatinine Estim Creat Clear Calc Estimated GFR Random Glucose Estimat Average Glucose 91 Hemoglobin A1c % 4.8 Calcium Magnesium 2.5 Triglycerides 133 Cholesterol 296 H LDL Cholesterol, Calc 227 H HDL Cholesterol 43 Vitamin B12 432 Folate 12.7 TSH 0.82 Free T4 1.16 Beta HCG, Quant < 2 T.pallidum Ab (EIA) Nonreactive Dinorah species DNA Negative Chlam trachomat DNA PCR DETECTED A Gardnerella DNA Probe Positive A Hepatitis A IgM Ab Nonreactive Hep Bs Antigen Negative Hep Bs Antibody NONREACTIVE Hep B Core Total Ab Nonreactive Hepatitis C Ab (EIA) Reactive H HIV 1&2 Ab/P24 Ag 4thGn Nonreactive N.gonorrhoeae DNA (PCR) NOT DETECTED Trichomonas DNA Probe Positive A 06/16/23 08:10 Sodium 139 Potassium 4.2 Chloride 106 Carbon Dioxide 24 Anion Gap 13 BUN 12 Creatinine 0.76 Estim Creat Clear Calc 94.7 Estimated GFR > 60 Random Glucose 78 Estimat Average Glucose Hemoglobin A1c % Calcium 9.3 Magnesium Triglycerides Cholesterol LDL Cholesterol, Calc HDL Cholesterol Vitamin B12 Folate TSH Free T4 Beta HCG, Quant T.pallidum Ab (EIA) Dinorah species DNA Chlam trachomat DNA PCR Gardnerella DNA Probe Hepatitis A IgM Ab Hep Bs Antigen Hep Bs Antibody Hep B Core Total Ab Hepatitis C Ab (EIA) HIV 1&2 Ab/P24 Ag 4thGn N.gonorrhoeae DNA (PCR) Trichomonas DNA Probe Imaging Radiology Impressions: ITS Impressions Knee X-Ray 06/11/23 15:53 IMPRESSION: 1. No acute findings. 2. Medullary femoral diaphyseal bone infarct. Cervical Spine CT 06/11/23 16:34 IMPRESSION: 1. No evidence of acute intracranial hemorrhage or edematous territorial infarction. 2. No evidence of acute fracture or traumatic subluxation of the cervical spine. 3. No evidence of acute fracture of the maxillofacial bones. 4. Small left parietal scalp hematoma. No associated osseous calvarial abnormalities. 5. Moderate maxillary odontogenic disease. Face CT 06/11/23 16:34 IMPRESSION: 1. No evidence of acute intracranial hemorrhage or edematous territorial infarction. 2. No evidence of acute fracture or traumatic subluxation of the cervical spine. 3. No evidence of acute fracture of the maxillofacial bones. 4. Small left parietal scalp hematoma. No associated osseous calvarial abnormalities. 5. Moderate maxillary odontogenic disease. Head CT 06/11/23 16:34 IMPRESSION: 1. No evidence of acute intracranial hemorrhage or edematous territorial infarction. 2. No evidence of acute fracture or traumatic subluxation of the cervical spine. 3. No evidence of acute fracture of the maxillofacial bones. 4. Small left parietal scalp hematoma. No associated osseous calvarial abnormalities. 5. Moderate maxillary odontogenic disease. Medications Medications Current Medications Al Hydroxide/Mg Hydroxide (Magnesium Hydrox/Alum Hydrox 30 Ml Oral.Susp) 30 ml PO Q6H PRN PRN Reason: Heartburn/Nausea Aripiprazole (Aripiprazole 2 Mg Tablet) 2 mg PO BEDTIME [facility] Last Admin: 06/15/23 20:55 Dose: 2 mg Baclofen (Baclofen 10 Mg Tablet) 10 mg PO BID PRN PRN Reason: muscle aches Last Admin: 06/16/23 08:34 Dose: 10 mg Bupropion HCl (Bupropion Hcl Xl 150 Mg Tab.Er.24h) 150 mg PO DAILY [facility] Last Admin: 06/16/23 08:25 Dose: 150 mg Clonidine HCl (Clonidine Hcl 0.1 Mg Tablet) 0.1 mg PO Q6H PRN; Protocol PRN Reason: tachycardia Last Admin: 06/16/23 08:34 Dose: 0.1 mg Diphenhydramine HCl (Diphenhydramine Hcl 25 Mg Capsule) 50 mg PO BEDTIME [facility] Last Admin: 06/15/23 20:55 Dose: 50 mg Doxycycline Monohydrate (Doxycycline Monohydrate 100 Mg Capsule) 100 mg PO Q12H [facility] Stop: 06/23/23 20:59 Last Admin: 06/16/23 08:25 Dose: 100 mg Gabapentin (Gabapentin 400 Mg Capsule) 800 mg PO TID [facility] Last Admin: 06/16/23 14:46 Dose: 800 mg Hydroxyzine HCl (Hydroxyzine Hcl 50 Mg Tablet) 50 mg PO TID PRN PRN Reason: Anxiety Last Admin: 06/16/23 12:59 Dose: 50 mg Magnesium Hydroxide (Milk Of Magnesia 30 Ml Oral.Susp) 30 ml PO DAILY PRN PRN Reason: Constipation Melatonin (Melatonin 3 Mg Tablet) 6 mg PO BEDTIME [facility] Last Admin: 06/15/23 20:55 Dose: 6 mg Methadone HCl (Methadone Hcl 20 Mg/2 Ml Oral.Conc) 55 mg PO DAILY [facility] Multivitamins/Vitamin C (Multivitamin Tablet) 1 tab PO DAILY [facility] Last Admin: 06/16/23 08:25 Dose: 1 tab Nicotine (Nicotine 21 Mg Patch.Td24) 21 mg TRANSDERMA DAILY [facility] Last Admin: 06/16/23 12:04 Dose: 21 mg Nicotine Polacrilex (Nicotine Polacrilex 2 Mg Gum) 2 mg BUCCAL Q2H PRN PRN Reason: Nicotine Cravings Last Admin: 06/16/23 13:00 Dose: 2 mg Olanzapine (Olanzapine 5 Mg Tablet) 5 mg PO BID PRN PRN Reason: agitation, anxiety Last Admin: 06/15/23 18:56 Dose: 5 mg Ondansetron HCl (Ondansetron Odt 4 Mg Tab.Rapdis) 4 mg TRANSLINGU Q6H PRN PRN Reason: Nausea Last Admin: 06/15/23 18:57 Dose: 4 mg Quetiapine Fumarate (Quetiapine Fumarate 25 Mg Tablet) 25 mg PO DAILY PRN PRN Reason: Anxiety Last Admin: 06/15/23 10:23 Dose: 25 mg Quetiapine Fumarate (Quetiapine Fumarate 50 Mg Tablet) 50 mg PO BEDTIME [facility] Last Admin: 06/15/23 20:55 Dose: 50 mg Allergies Allergies Allergy/AdvReac Type Severity Reaction Status Date / Time Penicillins [PENICILLINS] Allergy Severe ANAPHYLAXIS Verified 06/11/23 14:46 soap [SOAP] Allergy Intermediate ITCHING Verified 06/11/23 14:46 aspirin [ASA] Allergy Unknown ANAPHYLAXIS Verified 06/11/23 14:46 cat dander [cats] Allergy Unknown moderately Verified 06/11/23 14:46 severe latex [LATEX] Allergy Unknown ANAPHYLAXIS Verified 06/11/23 14:46 shellfish derived Allergy Unknown Unknown Verified 06/11/23 14:46 tramadol [TRAMADOL] Allergy Unknown HIVES, Rash Verified 06/11/23 14:46 acetaminophen [From Tylenol] Allergy Hives Verified 06/11/23 14:46 trazodone AdvReac Severe restless Verified 06/15/23 10:45 legs Assessment & Plan Assessment & Plan (1) MDD (major depressive disorder), recurrent episode, moderate: Status: Acute Code(s): F33.1 - Major depressive disorder, recurrent, moderate (2) Opioid abuse: Status: Acute Code(s): F11.10 - Opioid abuse, uncomplicated (3) Polysubstance use disorder: Status: Acute Code(s): F19.90 - Other psychoactive substance use, unspecified, uncomplicated Plan 32 yo female, hx of major depression, opiate and polysubstance use disorder, s/p relapse,fall. Recent detox where all of her psychotropics were stopped. Pt verbalized SI in the ER [employer]. Plan: Increase Methadone to 35 mg today. 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) Pt reports concern about STI-CTNG, BV, RPR, HCG, HIV panel Doxycycline 100 mg bid x 7 days, +Trich [facility] referrals if available Collateral contact BMP 06/16 (hx hyponatremia) 06/16- BMP WNL, Na corrected Continue regime and plan of care Addiction Medicine consult appreciated Patient educated on: medication risk/benefits, substance abuse, therapeutic strategies and medical condition Informed Consent: understands and further education needed Reason for continued inpatient stay Substantial Risk for: rapid decompensation Time Spent With Patient Time: Total time managing care of this patient today ____ minutes.
[2023-06-16] MEDS: Ondansetron ODT 4 MG TAB.RAPDIS TRANSLINGU (17:34)
[2023-06-16 17:38] VITALS: BP 99/60; PULSE 82
[2023-06-16 19:01] VITALS: BP 98/53; PULSE 71; TEMP 35.5; O2SAT 98
[2023-06-16] MEDS: Melatonin 3 MG TABLET 6 MG PO (19:50)
[2023-06-16] MEDS: diphenhydrAMINE HCL 25 MG CAPSULE 50 MG PO (19:50)
[2023-06-16] MEDS: QUEtiapine Fumarate 50 MG TABLET PO (19:50)
[2023-06-16] MEDS: ARIPiprazole 2 MG TABLET PO (19:51)
[2023-06-17] MEDS: QUEtiapine Fumarate 25 MG TABLET PO (03:40)
[2023-06-17 08:00] VITALS: BP 112/61; PULSE 71; RESP 16; TEMP 36; O2SAT 100
[2023-06-17] MEDS: Multivitamin TABLET 1 TAB PO (08:30)
[2023-06-17] MEDS: buPROPion HCl XL 150 MG TAB.ER.24H PO (08:30)
[2023-06-17] MEDS: methADONE HCl 20 MG/2 ML ORAL.CONC 55 MG PO (08:30)
[2023-06-17] MEDS: Doxycycline Monohydrate 100 MG CAPSULE PO ×2 (08:30→19:46)
[2023-06-17] MEDS: Gabapentin 400 MG CAPSULE 800 MG PO ×3 (08:30→19:46)
--- NOTE | 2023-06-17 10:12 | P.PNPSI_ITS ---
Subjective Subjective Date of Service: 06/17/23 Reason For Visit: recurrent major depression; opiate/ cocain use d/o Subjective Notes: Conditional Voluntary Healthcare Proxy: No Guardianship: No Medical Problems Affecting Mental Status: No Interim History: Reports feeling improved, symptoms are better contained. Remains with intermittent restlessness. Tolerating antibiotic Believes methadone has made a good contribution to her improvement. Medication Compliance: Yes Side effects from medications: No Attending Groups: Intermittent Review of Systems Acute medical concerns: No Medical Review of Systems: unchanged Mental Status Exam Mental Status Exam Patient Appearance: Appropriate Patient Orientation: Person, Place, Time and Situation Level of Consciousness: Alert Patient Behavior: Talkative and Good Eye Contact Mood Description: Anxious Affect Description: Anxious Patient Cognition Impaired: No Ability to Follow Directions: Good Speech Pattern: Spontaneous Speech Memory Description: Episodic Impaired Hallucinations: None Delusions: Not Present Thought Process: Distracted and Rumination Thought Content: positive for Perseveration Depressive Symptoms: Increased Anxiety, Insomnia, Difficulty Sleeping, Loss of Int. in Activity, Feelings of Worthlessness, Hopelessness, Isolating- Friends/Family, Feelings of Guilt, Unhappiness, Increased Fatigue, Low Self Esteem, Loss of Energy and Difficulty Concentrating Judgement: Fair Diagnostics Vital Signs (24Hr): Vital Signs - 24 hr 06/16/23 17:38 06/16/23 19:01 06/17/23 08:00 Temperature 95.9 F L 96.8 F Pulse Rate 82 71 71 Respiratory Rate 16 Blood Pressure 99/60 98/53 L 112/61 Pulse Oximetry 98 100 Oxygen Delivery Method Room Air Room Air BMI result Body Mass Index 25.0 Labs 06/11/23 19:41 06/16/23 08:10 Labs: Laboratory Results - last 48 hr 06/15/23 06/15/23 06/16/23 11:44 13:02 08:10 Sodium 139 Potassium 4.2 Chloride 106 Carbon Dioxide 24 Anion Gap 13 BUN 12 Creatinine 0.76 Estim Creat Clear Calc 94.7 Estimated GFR > 60 Random Glucose 78 Calcium 9.3 Beta HCG, Quant < 2 T.pallidum Ab (EIA) Nonreactive Dinorah species DNA Negative Chlam trachomat DNA PCR DETECTED A Gardnerella DNA Probe Positive A Hepatitis A IgM Ab Nonreactive Hep Bs Antigen Negative Hep Bs Antibody NONREACTIVE Hep B Core Total Ab Nonreactive Hepatitis C Ab (EIA) Reactive H HIV 1&2 Ab/P24 Ag 4thGn Nonreactive N.gonorrhoeae DNA (PCR) NOT DETECTED Trichomonas DNA Probe Positive A Imaging Radiology Impressions: ITS Impressions Knee X-Ray 06/11/23 15:53 IMPRESSION: 1. No acute findings. 2. Medullary femoral diaphyseal bone infarct. Cervical Spine CT 06/11/23 16:34 IMPRESSION: 1. No evidence of acute intracranial hemorrhage or edematous territorial infarction. 2. No evidence of acute fracture or traumatic subluxation of the cervical spine. 3. No evidence of acute fracture of the maxillofacial bones. 4. Small left parietal scalp hematoma. No associated osseous calvarial abnormalities. 5. Moderate maxillary odontogenic disease. Face CT 06/11/23 16:34 IMPRESSION: 1. No evidence of acute intracranial hemorrhage or edematous territorial infarction. 2. No evidence of acute fracture or traumatic subluxation of the cervical spine. 3. No evidence of acute fracture of the maxillofacial bones. 4. Small left parietal scalp hematoma. No associated osseous calvarial abnormalities. 5. Moderate maxillary odontogenic disease. Head CT 06/11/23 16:34 IMPRESSION: 1. No evidence of acute intracranial hemorrhage or edematous territorial infarction. 2. No evidence of acute fracture or traumatic subluxation of the cervical spine. 3. No evidence of acute fracture of the maxillofacial bones. 4. Small left parietal scalp hematoma. No associated osseous calvarial abnormalities. 5. Moderate maxillary odontogenic disease. Medications Medications Current Medications Al Hydroxide/Mg Hydroxide (Magnesium Hydrox/Alum Hydrox 30 Ml Oral.Susp) 30 ml PO Q6H PRN PRN Reason: Heartburn/Nausea Aripiprazole (Aripiprazole 2 Mg Tablet) 2 mg PO BEDTIME [facility] Last Admin: 06/16/23 19:51 Dose: 2 mg Baclofen (Baclofen 10 Mg Tablet) 10 mg PO BID PRN PRN Reason: muscle aches Last Admin: 06/16/23 08:34 Dose: 10 mg Bupropion HCl (Bupropion Hcl Xl 150 Mg Tab.Er.24h) 150 mg PO DAILY [facility] Last Admin: 06/17/23 08:30 Dose: 150 mg Clonidine HCl (Clonidine Hcl 0.1 Mg Tablet) 0.1 mg PO Q6H PRN; Protocol PRN Reason: tachycardia Last Admin: 06/16/23 17:34 Dose: 0.1 mg Diphenhydramine HCl (Diphenhydramine Hcl 25 Mg Capsule) 50 mg PO BEDTIME [facility] Last Admin: 06/16/23 19:50 Dose: 50 mg Doxycycline Monohydrate (Doxycycline Monohydrate 100 Mg Capsule) 100 mg PO Q12H [facility] Stop: 06/23/23 20:59 Last Admin: 06/17/23 08:30 Dose: 100 mg Gabapentin (Gabapentin 400 Mg Capsule) 800 mg PO TID [facility] Last Admin: 06/17/23 08:30 Dose: 800 mg Hydroxyzine HCl (Hydroxyzine Hcl 50 Mg Tablet) 50 mg PO TID PRN PRN Reason: Anxiety Last Admin: 06/16/23 12:59 Dose: 50 mg Magnesium Hydroxide (Milk Of Magnesia 30 Ml Oral.Susp) 30 ml PO DAILY PRN PRN Reason: Constipation Melatonin (Melatonin 3 Mg Tablet) 6 mg PO BEDTIME [facility] Last Admin: 06/16/23 19:50 Dose: 6 mg Methadone HCl (Methadone Hcl 20 Mg/2 Ml Oral.Conc) 55 mg PO DAILY [facility] Last Admin: 06/17/23 08:30 Dose: 55 mg Multivitamins/Vitamin C (Multivitamin Tablet) 1 tab PO DAILY [facility] Last Admin: 06/17/23 08:30 Dose: 1 tab Nicotine (Nicotine 21 Mg Patch.Td24) 21 mg TRANSDERMA DAILY [facility] Last Admin: 06/17/23 09:46 Dose: Not Given Nicotine Polacrilex (Nicotine Polacrilex 2 Mg Gum) 2 mg BUCCAL Q2H PRN PRN Reason: Nicotine Cravings Last Admin: 06/16/23 19:51 Dose: 2 mg Olanzapine (Olanzapine 5 Mg Tablet) 5 mg PO BID PRN PRN Reason: agitation, anxiety Last Admin: 06/15/23 18:56 Dose: 5 mg Ondansetron HCl (Ondansetron Odt 4 Mg Tab.Rapdis) 4 mg TRANSLINGU Q6H PRN PRN Reason: Nausea Last Admin: 06/16/23 17:34 Dose: 4 mg Quetiapine Fumarate (Quetiapine Fumarate 25 Mg Tablet) 25 mg PO DAILY PRN PRN Reason: Anxiety Last Admin: 06/17/23 03:40 Dose: 25 mg Quetiapine Fumarate (Quetiapine Fumarate 50 Mg Tablet) 50 mg PO BEDTIME [facility] Last Admin: 06/16/23 19:50 Dose: 50 mg Allergies Allergies Allergy/AdvReac Type Severity Reaction Status Date / Time Penicillins [PENICILLINS] Allergy Severe ANAPHYLAXIS Verified 06/11/23 14:46 soap [SOAP] Allergy Intermediate ITCHING Verified 06/11/23 14:46 aspirin [ASA] Allergy Unknown ANAPHYLAXIS Verified 06/11/23 14:46 cat dander [cats] Allergy Unknown moderately Verified 06/11/23 14:46 severe latex [LATEX] Allergy Unknown ANAPHYLAXIS Verified 06/11/23 14:46 shellfish derived Allergy Unknown Unknown Verified 06/11/23 14:46 tramadol [TRAMADOL] Allergy Unknown HIVES, Rash Verified 06/11/23 14:46 acetaminophen [From Tylenol] Allergy Hives Verified 06/11/23 14:46 trazodone AdvReac Severe restless Verified 06/15/23 10:45 legs Assessment & Plan Assessment & Plan (1) MDD (major depressive disorder), recurrent episode, moderate: Status: Acute Code(s): F33.1 - Major depressive disorder, recurrent, moderate (2) Opioid abuse: Status: Acute Code(s): F11.10 - Opioid abuse, uncomplicated (3) Polysubstance use disorder: Status: Acute Code(s): F19.90 - Other psychoactive substance use, unspecified, uncomplicated Plan 32 yo female, hx of major depression, opiate and polysubstance use disorder, s/p relapse,fall. Recent detox where all of her psychotropics were stopped. Pt verbalized SI in the ER [employer]. Plan: Increase Methadone to 35 mg today. 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
[2023-06-17] MEDS: hydrOXYzine HCL 50 MG TABLET PO ×2 (10:28→18:53)
[2023-06-17] MEDS: Nicotine Polacrilex 2 MG GUM BUCCAL ×2 (10:29→18:51)
[2023-06-17] MEDS: Nicotine 21 MG PATCH.TD24 TRANSDERMA (10:29)
[2023-06-17] MEDS: Baclofen 10 MG TABLET PO ×2 (11:28→19:47)
[2023-06-17] MEDS: cloNIDine HCL 0.1 MG TABLET PO (14:07)
--- NOTE | 2023-06-17 15:13 | MHC.RECOVRN ---
Met with pt to follow up after methadone increase yesterday. Pt reports decrease in withdrawal symptoms however, nausea/vomiting/diarrhea persist beginning around 5 pm. Pt states I can't keep anything down. Pt utilizing Zofran with positive effect. Pt requesting additional methadone dose in the evening. Denies other questions or concerns. Discussed with Bobbi Bonilla APRN.
[2023-06-17 15:18] VITALS: BMI 21.3
[2023-06-17] MEDS: OLANZapine 5 MG TABLET PO (15:26)
[2023-06-17] MEDS: Ondansetron ODT 4 MG TAB.RAPDIS TRANSLINGU (15:33)
[2023-06-17] MEDS: methADONE HCl 20 MG/2 ML ORAL.CONC 5 MG PO (18:15)
[2023-06-17 19:35] VITALS: BP 120/73; PULSE 81; RESP 16; TEMP 36.6; O2SAT 99
[2023-06-17] MEDS: diphenhydrAMINE HCL 25 MG CAPSULE 50 MG PO (19:47)
[2023-06-17] MEDS: ARIPiprazole 2 MG TABLET PO (19:47)
[2023-06-17] MEDS: QUEtiapine Fumarate 50 MG TABLET PO (19:47)
[2023-06-17] MEDS: Melatonin 3 MG TABLET 6 MG PO (19:47)
[2023-06-17 21:30] VITALS: BP 106/63; PULSE 68; RESP 16; TEMP 36.4; O2SAT 98
[2023-06-18] MEDS: methADONE HCl 20 MG/2 ML ORAL.CONC 60 MG PO (09:04)
[2023-06-18] MEDS: Multivitamin TABLET 1 TAB PO (09:05)
[2023-06-18] MEDS: hydrOXYzine HCL 50 MG TABLET PO ×2 (09:05→14:38)
[2023-06-18] MEDS: Doxycycline Monohydrate 100 MG CAPSULE PO ×2 (09:05→20:23)
[2023-06-18] MEDS: Gabapentin 400 MG CAPSULE 800 MG PO ×3 (09:05→20:22)
[2023-06-18] MEDS: OLANZapine 5 MG TABLET PO (09:05)
[2023-06-18] MEDS: buPROPion HCl XL 150 MG TAB.ER.24H PO (09:05)
[2023-06-18 09:08] VITALS: BP 110/68; PULSE 96; RESP 18; TEMP 36.4; O2SAT 99
[2023-06-18] MEDS: Nicotine 21 MG PATCH.TD24 TRANSDERMA (11:41)
[2023-06-18] MEDS: Nicotine Polacrilex 2 MG GUM BUCCAL ×3 (11:47→17:49)
--- NOTE | 2023-06-18 13:03 | HO.PSYCHPN ---
Subjective Subjective Date of Service: 06/18/23 Reason For Visit: recurrent major depression; opiate/ cocain use d/o Subjective Notes: Conditional Voluntary Healthcare Proxy: No Guardianship: No Medical Problems Affecting Mental Status: No Interim History: Reports significant anxiety. Reports sleep is improving Appears bright, I am trying to look better. Discussed non-benzodiazepine options Medication Compliance: Yes Side effects from medications: No Attending Groups: Intermittent Review of Systems Acute medical concerns: No Mental Status Exam Mental Status Exam Patient Appearance: Appropriate Patient Orientation: Person, Place, Time and Situation Level of Consciousness: Alert Patient Behavior: Talkative and Good Eye Contact Mood Description: Anxious Affect Description: Anxious Patient Cognition Impaired: No Ability to Follow Directions: Good Speech Pattern: Spontaneous Speech Memory Description: Episodic Impaired Hallucinations: None Delusions: Not Present Thought Process: Distracted and Rumination Thought Content: positive for Perseveration Depressive Symptoms: Increased Anxiety, Insomnia, Difficulty Sleeping, Loss of Int. in Activity, Feelings of Worthlessness, Hopelessness, Isolating-Friends/Family, Feelings of Guilt, Unhappiness, Increased Fatigue, Low Self Esteem, Loss of Energy and Difficulty Concentrating Judgement: Fair Diagnostics Vital Signs (24Hr): Vital Signs - 24 hr 06/17/23 19:35 06/17/23 21:30 06/18/23 09:08 Temperature 97.9 F 97.5 F 97.5 F Pulse Rate 81 68 96 Respiratory Rate 16 16 18 Blood Pressure 120/73 106/63 110/68 Pulse Oximetry 99 98 99 Oxygen Delivery Method Room Air Room Air Room Air BMI result Body Mass Index 21.3 Labs 06/11/23 19:41 06/16/23 08:10 Labs: Laboratory Results - last 48 hr 06/15/23 13:02 Dinorah species DNA Negative Gardnerella DNA Probe Positive A Trichomonas DNA Probe Positive A Imaging Radiology Impressions: ITS Impressions Knee X-Ray 06/11/23 15:53 IMPRESSION: 1. No acute findings. 2. Medullary femoral diaphyseal bone infarct. Cervical Spine CT 06/11/23 16:34 IMPRESSION: 1. No evidence of acute intracranial hemorrhage or edematous territorial infarction. 2. No evidence of acute fracture or traumatic subluxation of the cervical spine. 3. No evidence of acute fracture of the maxillofacial bones. 4. Small left parietal scalp hematoma. No associated osseous calvarial abnormalities. 5. Moderate maxillary odontogenic disease. Face CT 06/11/23 16:34 IMPRESSION: 1. No evidence of acute intracranial hemorrhage or edematous territorial infarction. 2. No evidence of acute fracture or traumatic subluxation of the cervical spine. 3. No evidence of acute fracture of the maxillofacial bones. 4. Small left parietal scalp hematoma. No associated osseous calvarial abnormalities. 5. Moderate maxillary odontogenic disease. Head CT 06/11/23 16:34 IMPRESSION: 1. No evidence of acute intracranial hemorrhage or edematous territorial infarction. 2. No evidence of acute fracture or traumatic subluxation of the cervical spine. 3. No evidence of acute fracture of the maxillofacial bones. 4. Small left parietal scalp hematoma. No associated osseous calvarial abnormalities. 5. Moderate maxillary odontogenic disease. Medications Medications Current Medications Al Hydroxide/Mg Hydroxide (Magnesium Hydrox/Alum Hydrox 30 Ml Oral.Susp) 30 ml PO Q6H PRN PRN Reason: Heartburn/Nausea Aripiprazole (Aripiprazole 2 Mg Tablet) 2 mg PO BEDTIME [facility] Last Admin: 06/17/23 19:47 Dose: 2 mg Baclofen (Baclofen 10 Mg Tablet) 10 mg PO BID PRN PRN Reason: muscle aches Last Admin: 06/17/23 19:47 Dose: 10 mg Bupropion HCl (Bupropion Hcl Xl 150 Mg Tab.Er.24h) 150 mg PO DAILY [facility] Last Admin: 06/18/23 09:05 Dose: 150 mg Clonidine HCl (Clonidine Hcl 0.1 Mg Tablet) 0.1 mg PO Q6H PRN; Protocol PRN Reason: tachycardia Last Admin: 06/17/23 14:07 Dose: 0.1 mg Diphenhydramine HCl (Diphenhydramine Hcl 25 Mg Capsule) 50 mg PO BEDTIME [facility] Last Admin: 06/17/23 19:47 Dose: 50 mg Doxycycline Monohydrate (Doxycycline Monohydrate 100 Mg Capsule) 100 mg PO Q12H [facility] Stop: 06/23/23 20:59 Last Admin: 06/18/23 09:05 Dose: 100 mg Gabapentin (Gabapentin 400 Mg Capsule) 800 mg PO TID [facility] Last Admin: 06/18/23 09:05 Dose: 800 mg Hydroxyzine HCl (Hydroxyzine Hcl 50 Mg Tablet) 50 mg PO TID PRN PRN Reason: Anxiety Last Admin: 06/18/23 09:05 Dose: 50 mg Magnesium Hydroxide (Milk Of Magnesia 30 Ml Oral.Susp) 30 ml PO DAILY PRN PRN Reason: Constipation Melatonin (Melatonin 3 Mg Tablet) 6 mg PO BEDTIME [facility] Last Admin: 06/17/23 19:47 Dose: 6 mg Methadone HCl (Methadone Hcl 20 Mg/2 Ml Oral.Conc) 60 mg PO DAILY [facility] Last Admin: 06/18/23 09:04 Dose: 60 mg Multivitamins/Vitamin C (Multivitamin Tablet) 1 tab PO DAILY [facility] Last Admin: 06/18/23 09:05 Dose: 1 tab Nicotine (Nicotine 21 Mg Patch.Td24) 21 mg TRANSDERMA DAILY [facility] Last Admin: 06/18/23 11:41 Dose: 21 mg Nicotine Polacrilex (Nicotine Polacrilex 2 Mg Gum) 2 mg BUCCAL Q2H PRN PRN Reason: Nicotine Cravings Last Admin: 06/18/23 11:47 Dose: 2 mg Olanzapine (Olanzapine 5 Mg Tablet) 5 mg PO BID PRN PRN Reason: agitation, anxiety Last Admin: 06/18/23 09:05 Dose: 5 mg Ondansetron HCl (Ondansetron Odt 4 Mg Tab.Rapdis) 4 mg TRANSLINGU Q6H PRN PRN Reason: Nausea Last Admin: 06/17/23 15:33 Dose: 4 mg Quetiapine Fumarate (Quetiapine Fumarate 25 Mg Tablet) 25 mg PO DAILY PRN PRN Reason: Anxiety Last Admin: 06/17/23 03:40 Dose: 25 mg Quetiapine Fumarate (Quetiapine Fumarate 50 Mg Tablet) 50 mg PO BEDTIME [facility] Last Admin: 06/17/23 19:47 Dose: 50 mg Quetiapine Fumarate (Quetiapine Fumarate 25 Mg Tablet) 25 mg PO 0900,1400 [facility] Allergies Allergies Allergy/AdvReac Type Severity Reaction Status Date / Time Penicillins [PENICILLINS] Allergy Severe ANAPHYLAXIS Verified 06/11/23 14:46 soap [SOAP] Allergy Intermediate ITCHING Verified 06/11/23 14:46 aspirin [ASA] Allergy Unknown ANAPHYLAXIS Verified 06/11/23 14:46 cat dander [cats] Allergy Unknown moderately Verified 06/11/23 14:46 severe latex [LATEX] Allergy Unknown ANAPHYLAXIS Verified 06/11/23 14:46 shellfish derived Allergy Unknown Unknown Verified 06/11/23 14:46 tramadol [TRAMADOL] Allergy Unknown HIVES, Rash Verified 06/11/23 14:46 acetaminophen [From Tylenol] Allergy Hives Verified 06/11/23 14:46 trazodone AdvReac Severe restless Verified 06/15/23 10:45 legs Assessment & Plan Assessment & Plan (1) MDD (major depressive disorder), recurrent episode, moderate: Status: Acute Code(s): F33.1 - Major depressive disorder, recurrent, moderate (2) Opioid abuse: Status: Acute Code(s): F11.10 - Opioid abuse, uncomplicated (3) Polysubstance use disorder: Status: Acute Code(s): F19.90 - Other psychoactive substance use, unspecified, uncomplicated Plan 32 yo female, hx of major depression, opiate and polysubstance use disorder, s/p relapse,fall. Recent detox where all of her psychotropics were stopped. 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 Plan: Increase Methadone to 35 mg today. 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 Patient educated on: medication risk/benefits and therapeutic strategies Informed Consent: understands Reason for continued inpatient stay Substantial Risk for: rapid decompensation Time Spent With Patient Time: Total time managing care of this patient today ____ minutes.
[2023-06-18] MEDS: QUEtiapine Fumarate 25 MG TABLET PO ×2 (13:21→14:40)
[2023-06-18] MEDS: Baclofen 10 MG TABLET PO ×2 (13:21→23:02)
[2023-06-18 16:22] VITALS: BP 115/63; PULSE 80; RESP 18; TEMP 36.9; O2SAT 96
[2023-06-18] MEDS: cloNIDine HCL 0.1 MG TABLET PO (17:49)
[2023-06-18] MEDS: Melatonin 3 MG TABLET 6 MG PO (20:22)
[2023-06-18] MEDS: ARIPiprazole 2 MG TABLET PO (20:22)
[2023-06-18] MEDS: diphenhydrAMINE HCL 25 MG CAPSULE 50 MG PO (20:22)
[2023-06-18] MEDS: QUEtiapine Fumarate 50 MG TABLET PO (20:23)
[2023-06-19] VITALS: PULSE 75
[2023-06-19 08:00] VITALS: PULSE 70
[2023-06-19 08:15] VITALS: BP 108/59; PULSE 70; RESP 18; TEMP 36.3; O2SAT 98
[2023-06-19] MEDS: Gabapentin 400 MG CAPSULE 800 MG PO ×3 (09:02→19:52)
[2023-06-19] MEDS: QUEtiapine Fumarate 25 MG TABLET PO ×2 (09:02→12:11)
[2023-06-19] MEDS: buPROPion HCl XL 150 MG TAB.ER.24H PO (09:02)
[2023-06-19] MEDS: Multivitamin TABLET 1 TAB PO (09:02)
[2023-06-19] MEDS: methADONE HCl 20 MG/2 ML ORAL.CONC 60 MG PO (09:02)
[2023-06-19] MEDS: Doxycycline Monohydrate 100 MG CAPSULE PO ×2 (09:02→19:52)
[2023-06-19] MEDS: OLANZapine 5 MG TABLET PO (09:32)
--- NOTE | 2023-06-19 09:52 | P.PNPSI_ITS ---
Subjective Subjective Date of Service: 06/19/23 Reason For Visit: recurrent major depression; opiate/ cocain use d/o Interim History: With patient; discussed with team; reviewed notes Patient reports that she remains quite depressed and very anxious. Wants help changing medications to deal with anxiety. Patient said that when she was last hospitalized her medications were different and she felt that she was doing better. Solar Installation Foreman reviewed history and patient would like to get back on Lexapro and BuSpar. She said she used to be on Ambien at nighttime however adjusto writer operator discussed that this is unlikely the best option and she instead agrees to increase Seroquel at bedtime and during the day. Diagnostics Vital Signs (24Hr): Vital Signs - 24 hr 06/18/23 16:22 06/19/23 08:15 Temperature 98.5 F 97.4 F Pulse Rate 80 70 Respiratory Rate 18 18 Blood Pressure 115/63 108/59 L Pulse Oximetry 96 98 Oxygen Delivery Method Room Air Room Air BMI result Body Mass Index 21.3 Labs 06/11/23 19:41 06/16/23 08:10 Imaging Radiology Impressions: ITS Impressions Knee X-Ray 06/11/23 15:53 IMPRESSION: 1. No acute findings. 2. Medullary femoral diaphyseal bone infarct. Cervical Spine CT 06/11/23 16:34 IMPRESSION: 1. No evidence of acute intracranial hemorrhage or edematous territorial infarction. 2. No evidence of acute fracture or traumatic subluxation of the cervical spine. 3. No evidence of acute fracture of the maxillofacial bones. 4. Small left parietal scalp hematoma. No associated osseous calvarial abnormalities. 5. Moderate maxillary odontogenic disease. Face CT 06/11/23 16:34 IMPRESSION: 1. No evidence of acute intracranial hemorrhage or edematous territorial infarction. 2. No evidence of acute fracture or traumatic subluxation of the cervical spine. 3. No evidence of acute fracture of the maxillofacial bones. 4. Small left parietal scalp hematoma. No associated osseous calvarial abnormalities. 5. Moderate maxillary odontogenic disease. Head CT 06/11/23 16:34 IMPRESSION: 1. No evidence of acute intracranial hemorrhage or edematous territorial infarction. 2. No evidence of acute fracture or traumatic subluxation of the cervical spine. 3. No evidence of acute fracture of the maxillofacial bones. 4. Small left parietal scalp hematoma. No associated osseous calvarial abnormalities. 5. Moderate maxillary odontogenic disease. Medications Medications Current Medications Al Hydroxide/Mg Hydroxide (Magnesium Hydrox/Alum Hydrox 30 Ml Oral.Susp) 30 ml PO Q6H PRN PRN Reason: Heartburn/Nausea Aripiprazole (Aripiprazole 2 Mg Tablet) 2 mg PO BEDTIME [facility] Last Admin: 06/18/23 20:22 Dose: 2 mg Baclofen (Baclofen 10 Mg Tablet) 10 mg PO BID PRN PRN Reason: muscle aches Last Admin: 06/18/23 23:02 Dose: 10 mg Bupropion HCl (Bupropion Hcl Xl 150 Mg Tab.Er.24h) 150 mg PO DAILY [facility] Last Admin: 06/19/23 09:02 Dose: 150 mg Clonidine HCl (Clonidine Hcl 0.1 Mg Tablet) 0.1 mg PO Q6H PRN; Protocol PRN Reason: tachycardia Last Admin: 06/18/23 17:49 Dose: 0.1 mg Diphenhydramine HCl (Diphenhydramine Hcl 25 Mg Capsule) 50 mg PO BEDTIME [facility] Last Admin: 06/18/23 20:22 Dose: 50 mg Doxycycline Monohydrate (Doxycycline Monohydrate 100 Mg Capsule) 100 mg PO Q12H [facility] Stop: 06/23/23 20:59 Last Admin: 06/19/23 09:02 Dose: 100 mg Gabapentin (Gabapentin 400 Mg Capsule) 800 mg PO TID [facility] Last Admin: 06/19/23 09:02 Dose: 800 mg Hydroxyzine HCl (Hydroxyzine Hcl 50 Mg Tablet) 50 mg PO TID PRN PRN Reason: Anxiety Last Admin: 06/18/23 14:38 Dose: 50 mg Magnesium Hydroxide (Milk Of Magnesia 30 Ml Oral.Susp) 30 ml PO DAILY PRN PRN Reason: Constipation Melatonin (Melatonin 3 Mg Tablet) 6 mg PO BEDTIME [facility] Last Admin: 06/18/23 20:22 Dose: 6 mg Methadone HCl (Methadone Hcl 20 Mg/2 Ml Oral.Conc) 60 mg PO DAILY [facility] Last Admin: 06/19/23 09:02 Dose: 60 mg Multivitamins/Vitamin C (Multivitamin Tablet) 1 tab PO DAILY [facility] Last Admin: 06/19/23 09:02 Dose: 1 tab Nicotine (Nicotine 21 Mg Patch.Td24) 21 mg TRANSDERMA DAILY [facility] Last Admin: 06/18/23 11:41 Dose: 21 mg Nicotine Polacrilex (Nicotine Polacrilex 2 Mg Gum) 2 mg BUCCAL Q2H PRN PRN Reason: Nicotine Cravings Last Admin: 06/18/23 17:49 Dose: 2 mg Olanzapine (Olanzapine 5 Mg Tablet) 5 mg PO BID PRN PRN Reason: agitation, anxiety Last Admin: 06/19/23 09:32 Dose: 5 mg Ondansetron HCl (Ondansetron Odt 4 Mg Tab.Rapdis) 4 mg TRANSLINGU Q6H PRN PRN Reason: Nausea Last Admin: 06/17/23 15:33 Dose: 4 mg Quetiapine Fumarate (Quetiapine Fumarate 25 Mg Tablet) 25 mg PO DAILY PRN PRN Reason: Anxiety Last Admin: 06/18/23 13:21 Dose: 25 mg Quetiapine Fumarate (Quetiapine Fumarate 50 Mg Tablet) 50 mg PO BEDTIME [facility] Last Admin: 06/18/23 20:23 Dose: 50 mg Quetiapine Fumarate (Quetiapine Fumarate 25 Mg Tablet) 25 mg PO 0900,1400 [facility] Last Admin: 06/19/23 09:02 Dose: 25 mg Allergies Allergies Allergy/AdvReac Type Severity Reaction Status Date / Time Penicillins [PENICILLINS] Allergy Severe ANAPHYLAXIS Verified 06/11/23 14:46 soap [SOAP] Allergy Intermediate ITCHING Verified 06/11/23 14:46 aspirin [ASA] Allergy Unknown ANAPHYLAXIS Verified 06/11/23 14:46 cat dander [cats] Allergy Unknown moderately Verified 06/11/23 14:46 severe latex [LATEX] Allergy Unknown ANAPHYLAXIS Verified 06/11/23 14:46 tramadol [TRAMADOL] Allergy Unknown HIVES, Rash Verified 06/11/23 14:46 acetaminophen [From Tylenol] Allergy Hives Verified 06/11/23 14:46 squid Allergy Unknown Verified 06/18/23 17:56 trazodone AdvReac Severe restless Verified 06/15/23 10:45 legs Assessment & Plan Assessment & Plan (1) MDD (major depressive disorder), recurrent episode, moderate: Status: Acute Code(s): F33.1 - Major depressive disorder, recurrent, moderate (2) Opioid abuse: Status: Acute Code(s): F11.10 - Opioid abuse, uncomplicated (3) Polysubstance use disorder: Status: Acute Code(s): F19.90 - Other psychoactive substance use, unspecified, uncomplicated Plan 32 yo female, hx of major depression, opiate and polysubstance use disorder, s/p relapse,fall. Recent detox where all of her psychotropics were stopped. 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 Plan: Increase Methadone to 35 mg today. 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 06/19 Patient reports that she remains quite depressed and very anxious. Wants help changing medications to deal with anxiety. Patient said that when she was last hospitalized her medications were different and she felt that she was doing better. Solar Installation Foreman reviewed history and patient would like to get back on Lexapro and BuSpar. She said she used to be on Ambien at nighttime however adjusto writer operator discussed that this is unlikely the best option and she instead agrees to increase Seroquel at bedtime and during the day. -will hold off increasing Wellbutrin further since patient is complaining of trouble sleeping Increase Seroquel to 50 mg b.i.d 0900, 1400. (up from 25 mg b.i.d.) Increase bedtime Seroquel to 100 mg q.h.s. for continued insomnia Added clonidine 0.1 mg q.h.s. for insomnia Restart Lexapro 5 mg which patient was on before and says was helpful Restart BuSpar 10 mg t.i.d. which patient was on before and says was helpful Continue Abilify 2 mg daily Patient educated on: diagnosis, medication risk/benefits, substance abuse and therapeutic strategies Informed Consent: understands and further education needed Reason for continued inpatient stay Substantial Risk for: rapid decompensation Time Spent With Patient Time: Total time managing care of this patient today ____ minutes.
[2023-06-19] MEDS: Nicotine 21 MG PATCH.TD24 TRANSDERMA (12:09)
[2023-06-19] MEDS: Nicotine Polacrilex 2 MG GUM BUCCAL ×3 (12:10→18:52)
--- NOTE | 2023-06-19 12:21 | MHC.RECOVRN ---
special procedures tech met with patient in room 511-2 to check in on withdrawal symptoms. Patient had been resting upon entering the room, however sat up and was pleasant to converse with. She reports that she slept OK . She feels she is yawning a lot . She reports nausea continues, but subsides with PRN antiemetic med. Denies any vomiting and is able to tolerate eating/drinking. She admits to still feeling anxious- RN asked covering nurse to administer PRN antianxiety med. With regards to MOUD, patient feels Methadone 60mg PO is working well for her. Discussed w/Bobbi Bonilla APRN.
[2023-06-19] MEDS: Escitalopram Oxalate 5 MG TABLET PO (13:53)
[2023-06-19] MEDS: QUEtiapine Fumarate 50 MG TABLET PO ×2 (13:53→18:52)
[2023-06-19] MEDS: Baclofen 10 MG TABLET PO (13:54)
[2023-06-19] MEDS: Lidocaine 4 % Patch ADH..PATCH 1 PATCH TRANSDERMA (14:49)
[2023-06-19] MEDS: busPIRone HCl 10 MG TABLET PO ×2 (14:50→19:52)
[2023-06-19 16:00] VITALS: PULSE 79
[2023-06-19 18:50] VITALS: BP 125/63; PULSE 81; RESP 18; TEMP 37.2
[2023-06-19] MEDS: cloNIDine HCL 0.1 MG TABLET PO (18:52)
[2023-06-19] MEDS: diphenhydrAMINE HCL 25 MG CAPSULE 50 MG PO (19:51)
[2023-06-19] MEDS: QUEtiapine Fumarate 100 MG TABLET PO (19:52)
[2023-06-19] MEDS: ARIPiprazole 2 MG TABLET PO (19:52)
[2023-06-19] MEDS: Melatonin 3 MG TABLET 6 MG PO (19:52)
[2023-06-20 08:00] VITALS: PULSE 63
[2023-06-20 09:00] VITALS: BP 124/65; PULSE 63; RESP 18; TEMP 36.3; O2SAT 98
[2023-06-20] MEDS: QUEtiapine Fumarate 50 MG TABLET PO ×4 (09:07→15:35)
[2023-06-20] MEDS: Multivitamin TABLET 1 TAB PO (09:07)
[2023-06-20] MEDS: buPROPion HCl XL 150 MG TAB.ER.24H PO (09:07)
[2023-06-20] MEDS: Escitalopram Oxalate 5 MG TABLET PO (09:08)
[2023-06-20] MEDS: Doxycycline Monohydrate 100 MG CAPSULE PO ×2 (09:08→20:16)
[2023-06-20] MEDS: methADONE HCl 20 MG/2 ML ORAL.CONC 60 MG PO (09:08)
[2023-06-20] MEDS: busPIRone HCl 10 MG TABLET PO ×3 (09:08→20:16)
[2023-06-20] MEDS: Gabapentin 400 MG CAPSULE 800 MG PO ×3 (09:08→20:15)
--- NOTE | 2023-06-20 09:57 | HO.PSYCHPN ---
Subjective Subjective Date of Service: 06/20/23 Reason For Visit: recurrent major depression; opiate/ cocain use d/o Interim History: Met with patient; discussed with team Patient?reports?that?she?had?a?tough?evening?last?night,?feeling?disappointed?however?patient?did?not?disclose The?event.??She?said?it?has?been?a?tough?day-to-day?as?well?but?would?like?to?leave?medication?the?way?it?is To?see?if?new?medications?added?yesterday?prove?helpful?enough. -she?asks?for?extra?lidocaine?patch?for?the?other?half?of?her?lower?back Mental Status Exam Mental Status Exam Patient Appearance: Appropriate Patient Orientation: Person, Place, Time and Situation Level of Consciousness: Alert Patient Behavior: Talkative and Good Eye Contact Mood Description: Anxious Affect Description: Anxious Patient Cognition Impaired: No Ability to Follow Directions: Good Speech Pattern: Spontaneous Speech Memory Description: Episodic Impaired Hallucinations: None Delusions: Not Present Thought Process: Distracted and Rumination Thought Content: positive for Perseveration Depressive Symptoms: Increased Anxiety, Insomnia, Difficulty Sleeping, Loss of Int. in Activity, Feelings of Worthlessness, Hopelessness, Isolating-Friends/Family, Feelings of Guilt, Unhappiness, Increased Fatigue, Low Self Esteem, Loss of Energy and Difficulty Concentrating Judgement: Fair Diagnostics Vital Signs (24Hr): Vital Signs - 24 hr 06/19/23 18:50 06/20/23 09:00 Temperature 98.9 F 97.3 F Pulse Rate 81 63 Respiratory Rate 18 18 Blood Pressure 125/63 124/65 Pulse Oximetry 98 Oxygen Delivery Method Room Air BMI result Body Mass Index 21.3 Labs 06/11/23 19:41 06/16/23 08:10 Imaging Radiology Impressions: ITS Impressions Knee X-Ray 06/11/23 15:53 IMPRESSION: 1. No acute findings. 2. Medullary femoral diaphyseal bone infarct. Cervical Spine CT 06/11/23 16:34 IMPRESSION: 1. No evidence of acute intracranial hemorrhage or edematous territorial infarction. 2. No evidence of acute fracture or traumatic subluxation of the cervical spine. 3. No evidence of acute fracture of the maxillofacial bones. 4. Small left parietal scalp hematoma. No associated osseous calvarial abnormalities. 5. Moderate maxillary odontogenic disease. Face CT 06/11/23 16:34 IMPRESSION: 1. No evidence of acute intracranial hemorrhage or edematous territorial infarction. 2. No evidence of acute fracture or traumatic subluxation of the cervical spine. 3. No evidence of acute fracture of the maxillofacial bones. 4. Small left parietal scalp hematoma. No associated osseous calvarial abnormalities. 5. Moderate maxillary odontogenic disease. Head CT 06/11/23 16:34 IMPRESSION: 1. No evidence of acute intracranial hemorrhage or edematous territorial infarction. 2. No evidence of acute fracture or traumatic subluxation of the cervical spine. 3. No evidence of acute fracture of the maxillofacial bones. 4. Small left parietal scalp hematoma. No associated osseous calvarial abnormalities. 5. Moderate maxillary odontogenic disease. Medications Medications Current Medications Al Hydroxide/Mg Hydroxide (Magnesium Hydrox/Alum Hydrox 30 Ml Oral.Susp) 30 ml PO Q6H PRN PRN Reason: Heartburn/Nausea Aripiprazole (Aripiprazole 2 Mg Tablet) 2 mg PO BEDTIME [facility] Last Admin: 06/19/23 19:52 Dose: 2 mg Baclofen (Baclofen 10 Mg Tablet) 10 mg PO BID PRN PRN Reason: muscle aches Last Admin: 06/19/23 13:54 Dose: 10 mg Bupropion HCl (Bupropion Hcl Xl 150 Mg Tab.Er.24h) 150 mg PO DAILY [facility] Last Admin: 06/20/23 09:07 Dose: 150 mg Buspirone HCl (Buspirone Hcl 10 Mg Tablet) 10 mg PO TID [facility] Last Admin: 06/20/23 09:08 Dose: 10 mg Clonidine HCl (Clonidine Hcl 0.1 Mg Tablet) 0.1 mg PO Q6H PRN; Protocol PRN Reason: tachycardia Last Admin: 06/19/23 18:52 Dose: 0.1 mg Clonidine HCl (Clonidine Hcl 0.1 Mg Tablet) 0.1 mg PO BEDTIME [facility]; Protocol Last Admin: 06/19/23 19:59 Dose: Not Given Diphenhydramine HCl (Diphenhydramine Hcl 25 Mg Capsule) 50 mg PO BEDTIME [facility] Last Admin: 06/19/23 19:51 Dose: 50 mg Doxycycline Monohydrate (Doxycycline Monohydrate 100 Mg Capsule) 100 mg PO Q12H [facility] Stop: 06/23/23 20:59 Last Admin: 06/20/23 09:08 Dose: 100 mg Escitalopram Oxalate (Escitalopram Oxalate 5 Mg Tablet) 5 mg PO DAILY [facility] Last Admin: 06/20/23 09:08 Dose: 5 mg Gabapentin (Gabapentin 400 Mg Capsule) 800 mg PO TID [facility] Last Admin: 06/20/23 09:08 Dose: 800 mg Hydroxyzine HCl (Hydroxyzine Hcl 50 Mg Tablet) 50 mg PO TID PRN PRN Reason: Anxiety Last Admin: 06/18/23 14:38 Dose: 50 mg Lidocaine (Lidocaine 4 % Patch Adh..Patch) 1 patch TRANSDERMA DAILY [facility]; Protocol Last Admin: 06/19/23 14:49 Dose: 1 patch Magnesium Hydroxide (Milk Of Magnesia 30 Ml Oral.Susp) 30 ml PO DAILY PRN PRN Reason: Constipation Melatonin (Melatonin 3 Mg Tablet) 6 mg PO BEDTIME [facility] Last Admin: 06/19/23 19:52 Dose: 6 mg Methadone HCl (Methadone Hcl 20 Mg/2 Ml Oral.Conc) 60 mg PO DAILY [facility] Last Admin: 06/20/23 09:08 Dose: 60 mg Multivitamins/Vitamin C (Multivitamin Tablet) 1 tab PO DAILY [facility] Last Admin: 06/20/23 09:07 Dose: 1 tab Nicotine (Nicotine 21 Mg Patch.Td24) 21 mg TRANSDERMA DAILY [facility] Last Admin: 06/19/23 12:09 Dose: 21 mg Nicotine Polacrilex (Nicotine Polacrilex 2 Mg Gum) 2 mg BUCCAL Q2H PRN PRN Reason: Nicotine Cravings Last Admin: 06/19/23 18:52 Dose: 2 mg Olanzapine (Olanzapine 5 Mg Tablet) 5 mg PO BID PRN PRN Reason: agitation, anxiety Last Admin: 06/19/23 09:32 Dose: 5 mg Ondansetron HCl (Ondansetron Odt 4 Mg Tab.Rapdis) 4 mg TRANSLINGU Q6H PRN PRN Reason: Nausea Last Admin: 06/17/23 15:33 Dose: 4 mg Quetiapine Fumarate (Quetiapine Fumarate 100 Mg Tablet) 100 mg PO BEDTIME [facility] Last Admin: 06/19/23 19:52 Dose: 100 mg Quetiapine Fumarate (Quetiapine Fumarate 50 Mg Tablet) 50 mg PO TID PRN PRN Reason: Anxiety Last Admin: 06/19/23 18:52 Dose: 50 mg Quetiapine Fumarate (Quetiapine Fumarate 50 Mg Tablet) 50 mg PO 0900,1400 [facility] Last Admin: 06/20/23 09:07 Dose: 50 mg Allergies Allergies Allergy/AdvReac Type Severity Reaction Status Date / Time Penicillins [PENICILLINS] Allergy Severe ANAPHYLAXIS Verified 06/11/23 14:46 soap [SOAP] Allergy Intermediate ITCHING Verified 06/11/23 14:46 aspirin [ASA] Allergy Unknown ANAPHYLAXIS Verified 06/11/23 14:46 cat dander [cats] Allergy Unknown moderately Verified 06/11/23 14:46 severe latex [LATEX] Allergy Unknown ANAPHYLAXIS Verified 06/11/23 14:46 tramadol [TRAMADOL] Allergy Unknown HIVES, Rash Verified 06/11/23 14:46 acetaminophen [From Tylenol] Allergy Hives Verified 06/11/23 14:46 squid Allergy Unknown Verified 06/18/23 17:56 trazodone AdvReac Severe restless Verified 06/15/23 10:45 legs Assessment & Plan Assessment & Plan (1) MDD (major depressive disorder), recurrent episode, moderate: Status: Acute Code(s): F33.1 - Major depressive disorder, recurrent, moderate (2) Opioid abuse: Status: Acute Code(s): F11.10 - Opioid abuse, uncomplicated (3) Polysubstance use disorder: Status: Acute Code(s): F19.90 - Other psychoactive substance use, unspecified, uncomplicated Plan 32 yo female, hx of major depression, opiate and polysubstance use disorder, s/p relapse,fall. Recent detox where all of her psychotropics were stopped. Pt verbalized SI in the ER [employer]. Plan: Increase Methadone to 35 mg today. 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 06/19 Patient reports that she remains quite depressed and very anxious. Wants help changing medications to deal with anxiety. Patient said that when she was last hospitalized her medications were different and she felt that she was doing better. R[facility] reviewed history and patient would like to get back on Lexapro and BuSpar. She said she used to be on Ambien at nighttime however automatic typewriter inspector discussed that this is unlikely the best option and she instead agrees to increase Seroquel at bedtime and during the day. -will hold off increasing Wellbutrin further since patient is complaining of trouble sleeping 06/20?continue?current?medication?regimen?other?than?having?added?extra?lidocaine?patch continue Seroquel to 50 mg b.i.d 0900, 1400. (up from 25 mg b.i.d.) Continue?bedtime Seroquel to 100 mg q.h.s. for continued insomnia Added clonidine 0.1 mg q.h.s. for insomnia Continue Lexapro 5 mg which patient was on before and says was helpful Continue BuSpar 10 mg t.i.d. which patient was on before and says was helpful Continue Abilify 2 mg daily Patient educated on: diagnosis and medication risk/benefits Informed Consent: understands Reason for continued inpatient stay Substantial Risk for: rapid decompensation Time Spent With Patient Time: Total time managing care of this patient today ____ minutes.
[2023-06-20] MEDS: Lidocaine 4 % Patch ADH..PATCH 1 PATCH TRANSDERMA ×2 (10:15→12:47)
[2023-06-20] MEDS: Nicotine 21 MG PATCH.TD24 TRANSDERMA (10:16)
[2023-06-20] MEDS: Nicotine Polacrilex 2 MG GUM BUCCAL ×3 (10:25→16:55)
[2023-06-20] MEDS: cloNIDine HCL 0.1 MG TABLET PO ×3 (11:01→20:16)
[2023-06-20 11:03] VITALS: BP 109/66; PULSE 88
--- NOTE | 2023-06-20 13:03 | MHC.RECOVRN ---
Met with patient in room 511-2. Upon entering the room, patient sitting with roommate playing a game. She appears to be in better spirits and have more energy than yesterday. She is dressed, hair is braided. She admits to feeling better as she has befriended her roommate and they have been a great support to one another. She continues to report anxiety and depression. She reports having interrupted sleeping over night. Reports mild nausea is less frequent- has not needed PRN antiemetic. Reports having diarrhea, but it's slowing down . She feels withdrawal symptoms are otherwise managed well and she is more focused on improving her mental health. Requesting to speak with Lilliam. Tolerated AM dose of Methadone, feels dose is appropriate. Denies any cravings. Notified KEON Reyes of patient's reports of anxiety and poor sleep, and requested that she pass on that patient would like to speak with Lilliam. Patient's DC goals are to establish treatment for anxiety and depression, and seek sobriety at [facility] or [facility]. Discussed w/Bobbi Bonilla RN
[2023-06-20] MEDS: hydrOXYzine HCL 50 MG TABLET PO (15:35)
[2023-06-20] MEDS: Baclofen 10 MG TABLET PO (15:35)
[2023-06-20 18:19] VITALS: BP 98/61; PULSE 82
[2023-06-20] MEDS: ARIPiprazole 2 MG TABLET PO (20:16)
[2023-06-20] MEDS: diphenhydrAMINE HCL 25 MG CAPSULE 50 MG PO (20:16)
[2023-06-20] MEDS: Melatonin 3 MG TABLET 6 MG PO (20:16)
[2023-06-20] MEDS: QUEtiapine Fumarate 100 MG TABLET PO (20:16)
[2023-06-21 08:00] VITALS: BP 98/60; PULSE 61; RESP 16; TEMP 36.2; O2SAT 97
[2023-06-21] MEDS: methADONE HCl 20 MG/2 ML ORAL.CONC 60 MG PO (08:33)
[2023-06-21] MEDS: buPROPion HCl XL 150 MG TAB.ER.24H PO (08:35)
[2023-06-21] MEDS: Gabapentin 400 MG CAPSULE 800 MG PO ×3 (08:35→21:08)
[2023-06-21] MEDS: QUEtiapine Fumarate 50 MG TABLET PO ×2 (08:35→14:29)
[2023-06-21] MEDS: busPIRone HCl 10 MG TABLET PO ×3 (08:35→21:07)
[2023-06-21] MEDS: Doxycycline Monohydrate 100 MG CAPSULE PO ×2 (08:35→21:08)
[2023-06-21] MEDS: Multivitamin TABLET 1 TAB PO (08:36)
[2023-06-21] MEDS: Escitalopram Oxalate 5 MG TABLET PO (08:36)
[2023-06-21] MEDS: Nicotine 21 MG PATCH.TD24 TRANSDERMA (10:12)
[2023-06-21] MEDS: Lidocaine 4 % Patch ADH..PATCH 1 PATCH TRANSDERMA ×2 (10:12→10:13)
[2023-06-21] MEDS: Nicotine Polacrilex 2 MG GUM BUCCAL ×3 (10:13→17:49)
[2023-06-21] MEDS: OLANZapine 5 MG TABLET PO (11:13)
[2023-06-21] MEDS: hydrOXYzine HCL 50 MG TABLET PO ×2 (12:12→21:07)
--- NOTE | 2023-06-21 14:36 | P.PNPSI_ITS ---
Subjective Subjective Date of Service: 06/21/23 Reason For Visit: recurrent major depression; opiate/ cocain use d/o Subjective Notes: Conditional Voluntary Healthcare Proxy: No Guardianship: No Medical Problems Affecting Mental Status: No Interim History: Pt and team with significant medicine changes over the weekend-cloniding, lexapro, buspirone, abilify, increase of seroquel. Today, asks to continue changes with klonopin, adderall. Education provided. Reports she is working with team on ongoing applications to [employer] programs. Asks for Methadone increase, reports she continues with some loosening of stool and yawning. Reports sleep is improving 10p-3a, then 5a-7a. Review of diagnostics, positive for chlamydia, gardnerella, trichomonas-doxycycline course almost completed, metronidazole initiated. Hep C + as well. Discussed options for treatment post discharge. Pt expressed anger with her former partner for not informing her of his exposure. Reviewed lipid panel as well. Pt will discuss cholesteral lowering agents when she is seen for Hep C mgt plan. Medication Compliance: Yes Side effects from medications: No Attending Groups: Intermittent Review of Systems Acute medical concerns: No Medical Review of Systems: unchanged Mental Status Exam Mental Status Exam Patient Appearance: Appropriate Patient Orientation: Person, Place, Time and Situation Level of Consciousness: Alert Patient Behavior: Appropriate, Talkative, Cooperative, Good Eye Contact and Crying Mood Description: Sad Affect Description: Apprehensive Patient Cognition Impaired: No Ability to Follow Directions: Good Speech Pattern: Spontaneous Speech Memory Description: Episodic Impaired Hallucinations: None Delusions: Not Present Perceptual Disturbances: Depersonalization and Derealization Thought Process: Distracted and Rumination Thought Content: positive for Circumstantial, positive for Perseveration and positive for Suicidal Ideation (denies) Depressive Symptoms: Thoughts of /Suicide (denies) Judgement: Fair Diagnostics Vital Signs (24Hr): Vital Signs - 24 hr 06/20/23 18:19 06/21/23 08:00 Temperature 97.1 F Pulse Rate 82 61 Respiratory Rate 16 Blood Pressure 98/61 98/60 Pulse Oximetry 97 Oxygen Delivery Method Room Air BMI result Body Mass Index 21.3 Labs 06/11/23 19:41 06/16/23 08:10 Imaging Radiology Impressions: ITS Impressions Knee X-Ray 06/11/23 15:53 IMPRESSION: 1. No acute findings. 2. Medullary femoral diaphyseal bone infarct. Cervical Spine CT 06/11/23 16:34 IMPRESSION: 1. No evidence of acute intracranial hemorrhage or edematous territorial infarction. 2. No evidence of acute fracture or traumatic subluxation of the cervical spine. 3. No evidence of acute fracture of the maxillofacial bones. 4. Small left parietal scalp hematoma. No associated osseous calvarial abnormalities. 5. Moderate maxillary odontogenic disease. Face CT 06/11/23 16:34 IMPRESSION: 1. No evidence of acute intracranial hemorrhage or edematous territorial infarction. 2. No evidence of acute fracture or traumatic subluxation of the cervical spine. 3. No evidence of acute fracture of the maxillofacial bones. 4. Small left parietal scalp hematoma. No associated osseous calvarial abnormalities. 5. Moderate maxillary odontogenic disease. Head CT 06/11/23 16:34 IMPRESSION: 1. No evidence of acute intracranial hemorrhage or edematous territorial infarction. 2. No evidence of acute fracture or traumatic subluxation of the cervical spine. 3. No evidence of acute fracture of the maxillofacial bones. 4. Small left parietal scalp hematoma. No associated osseous calvarial abnormalities. 5. Moderate maxillary odontogenic disease. Medications Medications Current Medications Al Hydroxide/Mg Hydroxide (Magnesium Hydrox/Alum Hydrox 30 Ml Oral.Susp) 30 ml PO Q6H PRN PRN Reason: Heartburn/Nausea Aripiprazole (Aripiprazole 2 Mg Tablet) 2 mg PO BEDTIME [facility] Last Admin: 06/20/23 20:16 Dose: 2 mg Baclofen (Baclofen 10 Mg Tablet) 10 mg PO BID PRN PRN Reason: muscle aches Last Admin: 06/20/23 15:35 Dose: 10 mg Bupropion HCl (Bupropion Hcl Xl 150 Mg Tab.Er.24h) 150 mg PO DAILY [facility] Last Admin: 06/21/23 08:35 Dose: 150 mg Buspirone HCl (Buspirone Hcl 10 Mg Tablet) 10 mg PO TID [facility] Last Admin: 06/21/23 08:35 Dose: 10 mg Clonidine HCl (Clonidine Hcl 0.1 Mg Tablet) 0.1 mg PO BEDTIME [facility]; Protocol Last Admin: 06/20/23 20:16 Dose: 0.1 mg Clonidine HCl (Clonidine Hcl 0.1 Mg Tablet) 0.1 mg PO Q6H PRN; Protocol PRN Reason: tachycardia/Anxiety Last Admin: 06/20/23 18:20 Dose: 0.1 mg Diphenhydramine HCl (Diphenhydramine Hcl 25 Mg Capsule) 50 mg PO BEDTIME [facility] Last Admin: 06/20/23 20:16 Dose: 50 mg Doxycycline Monohydrate (Doxycycline Monohydrate 100 Mg Capsule) 100 mg PO Q12H [facility] Stop: 06/23/23 20:59 Last Admin: 06/21/23 08:35 Dose: 100 mg Escitalopram Oxalate (Escitalopram Oxalate 5 Mg Tablet) 5 mg PO DAILY [facility] Last Admin: 06/21/23 08:36 Dose: 5 mg Gabapentin (Gabapentin 400 Mg Capsule) 800 mg PO TID [facility] Last Admin: 06/21/23 08:35 Dose: 800 mg Hydroxyzine HCl (Hydroxyzine Hcl 50 Mg Tablet) 50 mg PO TID PRN PRN Reason: Anxiety Last Admin: 06/21/23 12:12 Dose: 50 mg Lidocaine (Lidocaine 4 % Patch Adh..Patch) 1 patch TRANSDERMA DAILY [facility]; Protocol Last Admin: 06/21/23 10:12 Dose: 1 patch Lidocaine (Lidocaine 4 % Patch Adh..Patch) 1 patch TRANSDERMA DAILY [facility]; Protocol Last Admin: 06/21/23 10:13 Dose: 1 patch Magnesium Hydroxide (Milk Of Magnesia 30 Ml Oral.Susp) 30 ml PO DAILY PRN PRN Reason: Constipation Melatonin (Melatonin 3 Mg Tablet) 6 mg PO BEDTIME [facility] Last Admin: 06/20/23 20:16 Dose: 6 mg Methadone HCl (Methadone Hcl 20 Mg/2 Ml Oral.Conc) 60 mg PO DAILY [facility] Last Admin: 06/21/23 08:33 Dose: 60 mg Multivitamins/Vitamin C (Multivitamin Tablet) 1 tab PO DAILY [facility] Last Admin: 06/21/23 08:36 Dose: 1 tab Nicotine (Nicotine 21 Mg Patch.Td24) 21 mg TRANSDERMA DAILY [facility] Last Admin: 06/21/23 10:12 Dose: 21 mg Nicotine Polacrilex (Nicotine Polacrilex 2 Mg Gum) 2 mg BUCCAL Q2H PRN PRN Reason: Nicotine Cravings Last Admin: 06/21/23 10:13 Dose: 2 mg Bio Oil Skincare Oil 1 each TOPICAL BID PRN PRN Reason: facial/nasal scars Olanzapine (Olanzapine 5 Mg Tablet) 5 mg PO BID PRN PRN Reason: agitation, anxiety Last Admin: 06/21/23 11:13 Dose: 5 mg Ondansetron HCl (Ondansetron Odt 4 Mg Tab.Rapdis) 4 mg TRANSLINGU Q6H PRN PRN Reason: Nausea Last Admin: 06/17/23 15:33 Dose: 4 mg Quetiapine Fumarate (Quetiapine Fumarate 100 Mg Tablet) 100 mg PO BEDTIME [facility] Last Admin: 06/20/23 20:16 Dose: 100 mg Quetiapine Fumarate (Quetiapine Fumarate 50 Mg Tablet) 50 mg PO TID PRN PRN Reason: Anxiety Last Admin: 06/20/23 15:35 Dose: 50 mg Quetiapine Fumarate (Quetiapine Fumarate 50 Mg Tablet) 50 mg PO 0900,1400 [facility] Last Admin: 06/21/23 14:29 Dose: 50 mg Allergies Allergies Allergy/AdvReac Type Severity Reaction Status Date / Time Penicillins [PENICILLINS] Allergy Severe ANAPHYLAXIS Verified 06/11/23 14:46 soap [SOAP] Allergy Intermediate ITCHING Verified 06/11/23 14:46 aspirin [ASA] Allergy Unknown ANAPHYLAXIS Verified 06/11/23 14:46 cat dander [cats] Allergy Unknown moderately Verified 06/11/23 14:46 severe latex [LATEX] Allergy Unknown ANAPHYLAXIS Verified 06/11/23 14:46 tramadol [TRAMADOL] Allergy Unknown HIVES, Rash Verified 06/11/23 14:46 acetaminophen [From Tylenol] Allergy Hives Verified 06/11/23 14:46 squid Allergy Unknown Verified 06/18/23 17:56 trazodone AdvReac Severe restless Verified 06/15/23 10:45 legs Assessment & Plan Assessment & Plan (1) MDD (major depressive disorder), recurrent episode, moderate: Status: Acute Code(s): F33.1 - Major depressive disorder, recurrent, moderate (2) Opioid abuse: Status: Acute Code(s): F11.10 - Opioid abuse, uncomplicated (3) Polysubstance use disorder: Status: Acute Code(s): F19.90 - Other psychoactive substance use, unspecified, uncomplicated Plan 32 yo female, hx of major depression, opiate and polysubstance use disorder, s/p relapse,fall. Recent detox where all of her psychotropics were stopped. Pt verbalized SI in the ER [employer]SEL[employer]. Plan: Increase Methadone to 35 mg today. 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 06/19 Patient reports that she remains quite depressed and very anxious. Wants help changing medications to deal with anxiety. Patient said that when she was last hospitalized her medications were different and she felt that she was doing better. Director [employer] reviewed history and patient would like to get back on Lexapro and BuSpar. She said she used to be on Ambien at nighttime however medical underwriter discussed that this is unlikely the best option and she instead agrees to increase Seroquel at bedtime and during the day. -will hold off increasing Wellbutrin further since patient is complaining of trouble sleeping 1 ?continue?current?medication?regimen?other?than?having?added?extra?lidocaine ?patch continue Seroquel to 50 mg b.i.d 0900, 1400. (up from 25 mg b.i.d.) Continue?bedtime Seroquel to 100 mg q.h.s. for continued insomnia Added clonidine 0.1 mg q.h.s. for insomnia Continue Lexapro 5 mg which patient was on before and says was helpful Continue BuSpar 10 mg t.i.d. which patient was on before and says was helpful Continue Abilify 2 mg daily 06/21/23: Metronidazole 500 mg bid x 7 days. Patient educated on: medication risk/benefits, therapeutic strategies and medical condition Informed Consent: further education needed Reason for continued inpatient stay Substantial Risk for: rapid decompensation Time Spent With Patient Time: Total time managing care of this patient today ____ minutes.
[2023-06-21] MEDS: cloNIDine HCL 0.1 MG TABLET PO ×2 (16:24→21:08)
[2023-06-21 16:25] VITALS: BP 98/63; PULSE 74
[2023-06-21] MEDS: Baclofen 10 MG TABLET PO (17:32)
[2023-06-21 18:00] VITALS: BP 110/67; PULSE 70; RESP 16; TEMP 36.4; O2SAT 97
[2023-06-21] MEDS: metroNIDAZOLE 500 MG TABLET PO (18:34)
[2023-06-21] MEDS: Melatonin 3 MG TABLET 6 MG PO (21:07)
[2023-06-21] MEDS: ARIPiprazole 2 MG TABLET PO (21:07)
[2023-06-21] MEDS: QUEtiapine Fumarate 100 MG TABLET PO (21:07)
[2023-06-21] MEDS: diphenhydrAMINE HCL 25 MG CAPSULE 50 MG PO (21:08)
[2023-06-22] MEDS: metroNIDAZOLE 500 MG TABLET PO ×2 (06:21→18:51)
[2023-06-22 08:00] VITALS: BP 106/72; PULSE 59; RESP 16; TEMP 36.1; O2SAT 98
[2023-06-22] MEDS: Nicotine 21 MG PATCH.TD24 TRANSDERMA (09:59)
[2023-06-22] MEDS: methADONE HCl 20 MG/2 ML ORAL.CONC 60 MG PO (09:59)
[2023-06-22] MEDS: QUEtiapine Fumarate 50 MG TABLET PO ×2 (10:00→13:21)
[2023-06-22] MEDS: Multivitamin TABLET 1 TAB PO (10:00)
[2023-06-22] MEDS: Gabapentin 400 MG CAPSULE 800 MG PO ×3 (10:00→21:12)
[2023-06-22] MEDS: busPIRone HCl 10 MG TABLET PO ×3 (10:00→21:12)
[2023-06-22] MEDS: Doxycycline Monohydrate 100 MG CAPSULE PO ×2 (10:01→21:12)
[2023-06-22] MEDS: buPROPion HCl XL 150 MG TAB.ER.24H PO (10:01)
[2023-06-22] MEDS: Escitalopram Oxalate 5 MG TABLET PO (10:01)
[2023-06-22] MEDS: Lidocaine 4 % Patch ADH..PATCH 1 PATCH TRANSDERMA ×2 (10:02)
[2023-06-22] MEDS: cloNIDine HCL 0.1 MG TABLET PO ×2 (12:30→21:12)
[2023-06-22] MEDS: Baclofen 10 MG TABLET PO ×2 (12:30→21:13)
[2023-06-22] MEDS: Nicotine Polacrilex 2 MG GUM BUCCAL ×2 (13:21→18:51)
[2023-06-22] MEDS: Ketorolac Tromethamine 10 MG TABLET PO ×2 (14:48→21:10)
--- NOTE | 2023-06-22 15:59 | HO.PSYCHPN ---
Subjective Subjective Date of Service: 06/22/23 Reason For Visit: recurrent major depression; opiate/ cocain use d/o Subjective Notes: Conditional Voluntary Healthcare Proxy: No Guardianship: No Medical Problems Affecting Mental Status: No Interim History: Active and engaged in milieu and with peers. Reports ongoing anxiety and asks for Adderall trial for ADHD. Discussed with pt. Medication education attempted regarding sx, regime, planning of care, avoidance of addictive medications. Pt verbalized understanding. She reports apprehension regarding CSS application status to programs. Medication Compliance: Yes Side effects from medications: No Attending Groups: Intermittent Review of Systems Acute medical concerns: No Medical Review of Systems: unchanged Mental Status Exam Mental Status Exam Patient Appearance: Appropriate Patient Orientation: Person, Place, Time and Situation Level of Consciousness: Alert Patient Behavior: Appropriate, Talkative, Cooperative and Good Eye Contact Mood Description: Apprehensive Affect Description: Apprehensive Patient Cognition Impaired: No Ability to Follow Directions: Good Speech Pattern: Spontaneous Speech Memory Description: Episodic Impaired Hallucinations: None Delusions: Not Present Perceptual Disturbances: Depersonalization and Derealization Thought Process: Distracted and Rumination Thought Content: positive for Circumstantial, positive for Perseveration and positive for Suicidal Ideation (denies) Depressive Symptoms: Thoughts of /Suicide (denies) Judgement: Fair Diagnostics Vital Signs (24Hr): Vital Signs - 24 hr 06/21/23 16:25 06/21/23 18:00 06/22/23 08:00 Temperature 97.6 F 96.9 F Pulse Rate 74 70 59 Respiratory Rate 16 16 Blood Pressure 98/63 110/67 106/72 Pulse Oximetry 97 98 Oxygen Delivery Method Room Air Room Air BMI result Body Mass Index 21.3 Labs 06/11/23 19:41 06/16/23 08:10 Imaging Radiology Impressions: ITS Impressions Knee X-Ray 06/11/23 15:53 IMPRESSION: 1. No acute findings. 2. Medullary femoral diaphyseal bone infarct. Cervical Spine CT 06/11/23 16:34 IMPRESSION: 1. No evidence of acute intracranial hemorrhage or edematous territorial infarction. 2. No evidence of acute fracture or traumatic subluxation of the cervical spine. 3. No evidence of acute fracture of the maxillofacial bones. 4. Small left parietal scalp hematoma. No associated osseous calvarial abnormalities. 5. Moderate maxillary odontogenic disease. Face CT 06/11/23 16:34 IMPRESSION: 1. No evidence of acute intracranial hemorrhage or edematous territorial infarction. 2. No evidence of acute fracture or traumatic subluxation of the cervical spine. 3. No evidence of acute fracture of the maxillofacial bones. 4. Small left parietal scalp hematoma. No associated osseous calvarial abnormalities. 5. Moderate maxillary odontogenic disease. Head CT 06/11/23 16:34 IMPRESSION: 1. No evidence of acute intracranial hemorrhage or edematous territorial infarction. 2. No evidence of acute fracture or traumatic subluxation of the cervical spine. 3. No evidence of acute fracture of the maxillofacial bones. 4. Small left parietal scalp hematoma. No associated osseous calvarial abnormalities. 5. Moderate maxillary odontogenic disease. Medications Medications Current Medications Al Hydroxide/Mg Hydroxide (Magnesium Hydrox/Alum Hydrox 30 Ml Oral.Susp) 30 ml PO Q6H PRN PRN Reason: Heartburn/Nausea Aripiprazole (Aripiprazole 2 Mg Tablet) 2 mg PO BEDTIME [facility] Last Admin: 06/21/23 21:07 Dose: 2 mg Baclofen (Baclofen 10 Mg Tablet) 10 mg PO BID PRN PRN Reason: muscle aches Last Admin: 06/22/23 12:30 Dose: 10 mg Bupropion HCl (Bupropion Hcl Xl 150 Mg Tab.Er.24h) 150 mg PO DAILY [facility] Last Admin: 06/22/23 10:01 Dose: 150 mg Buspirone HCl (Buspirone Hcl 10 Mg Tablet) 10 mg PO TID [facility] Last Admin: 06/22/23 14:22 Dose: 10 mg Clonidine HCl (Clonidine Hcl 0.1 Mg Tablet) 0.1 mg PO BEDTIME [facility]; Protocol Last Admin: 06/21/23 21:08 Dose: 0.1 mg Clonidine HCl (Clonidine Hcl 0.1 Mg Tablet) 0.1 mg PO Q6H PRN; Protocol PRN Reason: tachycardia/Anxiety Last Admin: 06/22/23 12:30 Dose: 0.1 mg Diphenhydramine HCl (Diphenhydramine Hcl 25 Mg Capsule) 50 mg PO BEDTIME [facility] Last Admin: 06/21/23 21:08 Dose: 50 mg Doxycycline Monohydrate (Doxycycline Monohydrate 100 Mg Capsule) 100 mg PO Q12H [facility] Stop: 06/23/23 20:59 Last Admin: 06/22/23 10:01 Dose: 100 mg Escitalopram Oxalate (Escitalopram Oxalate 5 Mg Tablet) 5 mg PO DAILY [facility] Last Admin: 06/22/23 10:01 Dose: 5 mg Gabapentin (Gabapentin 400 Mg Capsule) 800 mg PO TID [facility] Last Admin: 06/22/23 14:22 Dose: 800 mg Hydroxyzine HCl (Hydroxyzine Hcl 50 Mg Tablet) 50 mg PO TID PRN PRN Reason: Anxiety Last Admin: 06/21/23 21:07 Dose: 50 mg Ketorolac Tromethamine (Ketorolac Tromethamine 10 Mg Tablet) 10 mg PO Q6H PRN PRN Reason: back pain Stop: 06/27/23 11:25 Last Admin: 06/22/23 14:48 Dose: 10 mg Lidocaine (Lidocaine 4 % Patch Adh..Patch) 1 patch TRANSDERMA DAILY [facility]; Protocol Last Admin: 06/22/23 10:02 Dose: 1 patch Lidocaine (Lidocaine 4 % Patch Adh..Patch) 1 patch TRANSDERMA DAILY [facility]; Protocol Last Admin: 06/22/23 10:02 Dose: 1 patch Magnesium Hydroxide (Milk Of Magnesia 30 Ml Oral.Susp) 30 ml PO DAILY PRN PRN Reason: Constipation Melatonin (Melatonin 3 Mg Tablet) 6 mg PO BEDTIME [facility] Last Admin: 06/21/23 21:07 Dose: 6 mg Methadone HCl (Methadone Hcl 20 Mg/2 Ml Oral.Conc) 60 mg PO DAILY [facility] Last Admin: 06/22/23 09:59 Dose: 60 mg Metronidazole (Metronidazole 500 Mg Tablet) 500 mg PO Q12H [facility] Stop: 06/29/23 21:00 Last Admin: 06/22/23 06:21 Dose: 500 mg Multivitamins/Vitamin C (Multivitamin Tablet) 1 tab PO DAILY [facility] Last Admin: 06/22/23 10:00 Dose: 1 tab Nicotine (Nicotine 21 Mg Patch.Td24) 21 mg TRANSDERMA DAILY [facility] Last Admin: 06/22/23 09:59 Dose: 21 mg Nicotine Polacrilex (Nicotine Polacrilex 2 Mg Gum) 2 mg BUCCAL Q2H PRN PRN Reason: Nicotine Cravings Last Admin: 06/22/23 13:21 Dose: 2 mg Bio Oil Skincare Oil 1 each TOPICAL BID PRN PRN Reason: facial/nasal scars Last Admin: 06/22/23 12:30 Dose: 1 each Olanzapine (Olanzapine 5 Mg Tablet) 5 mg PO BID PRN PRN Reason: agitation, anxiety Last Admin: 06/21/23 11:13 Dose: 5 mg Ondansetron HCl (Ondansetron Odt 4 Mg Tab.Rapdis) 4 mg TRANSLINGU Q6H PRN PRN Reason: Nausea Last Admin: 06/17/23 15:33 Dose: 4 mg Quetiapine Fumarate (Quetiapine Fumarate 100 Mg Tablet) 100 mg PO BEDTIME [facility] Last Admin: 06/21/23 21:07 Dose: 100 mg Quetiapine Fumarate (Quetiapine Fumarate 50 Mg Tablet) 50 mg PO TID PRN PRN Reason: Anxiety Last Admin: 06/20/23 15:35 Dose: 50 mg Quetiapine Fumarate (Quetiapine Fumarate 50 Mg Tablet) 50 mg PO 0900,1400 [facility] Last Admin: 06/22/23 13:21 Dose: 50 mg Allergies Allergies Allergy/AdvReac Type Severity Reaction Status Date / Time Penicillins [PENICILLINS] Allergy Severe ANAPHYLAXIS Verified 06/11/23 14:46 soap [SOAP] Allergy Intermediate ITCHING Verified 06/11/23 14:46 aspirin [ASA] Allergy Unknown ANAPHYLAXIS Verified 06/11/23 14:46 cat dander [cats] Allergy Unknown moderately Verified 06/11/23 14:46 severe latex [LATEX] Allergy Unknown ANAPHYLAXIS Verified 06/11/23 14:46 tramadol [TRAMADOL] Allergy Unknown HIVES, Rash Verified 06/11/23 14:46 acetaminophen [From Tylenol] Allergy Hives Verified 06/11/23 14:46 squid Allergy Unknown Verified 06/18/23 17:56 trazodone AdvReac Severe restless Verified 06/15/23 10:45 legs Assessment & Plan Assessment & Plan (1) MDD (major depressive disorder), recurrent episode, moderate: Status: Acute Code(s): F33.1 - Major depressive disorder, recurrent, moderate (2) Opioid abuse: Status: Acute Code(s): F11.10 - Opioid abuse, uncomplicated (3) Polysubstance use disorder: Status: Acute Code(s): F19.90 - Other psychoactive substance use, unspecified, uncomplicated Plan 32 yo female, hx of major depression, opiate and polysubstance use disorder, s/p relapse,fall. Recent detox where all of her psychotropics were stopped. 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 Plan: Increase Methadone to 35 mg today. 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 06/19 Patient reports that she remains quite depressed and very anxious. Wants help changing medications to deal with anxiety. Patient said that when she was last hospitalized her medications were different and she felt that she was doing better. Custom Tailor Apprentice reviewed history and patient would like to get back on Lexapro and BuSpar. She said she used to be on Ambien at nighttime however physician underwriter discussed that this is unlikely the best option and she instead agrees to increase Seroquel at bedtime and during the day. -will hold off increasing Wellbutrin further since patient is complaining of trouble sleeping 06/20?continue?current?medication?regimen?other?than?having?added?extra?lidocaine?patch continue Seroquel to 50 mg b.i.d 0900, 1400. (up from 25 mg b.i.d.) Continue?bedtime Seroquel to 100 mg q.h.s. for continued insomnia Added clonidine 0.1 mg q.h.s. for insomnia Continue Lexapro 5 mg which patient was on before and says was helpful Continue BuSpar 10 mg t.i.d. which patient was on before and says was helpful Continue Abilify 2 mg daily 06/21/23: Metronidazole 500 mg bid x 7 days. 06/22/23: Reports back pain, Ketorolac prn Patient educated on: medication risk/benefits and therapeutic strategies Informed Consent: understands Reason for continued inpatient stay Substantial Risk for: rapid decompensation Time Spent With Patient Time: Total time managing care of this patient today ____ minutes.
[2023-06-22 18:00] VITALS: BP 110/66; PULSE 78; RESP 16; TEMP 35.7; O2SAT 99
[2023-06-22] MEDS: Ondansetron ODT 4 MG TAB.RAPDIS TRANSLINGU (18:51)
[2023-06-22] MEDS: hydrOXYzine HCL 50 MG TABLET PO (18:51)
[2023-06-22] MEDS: Melatonin 3 MG TABLET 6 MG PO (21:10)
[2023-06-22] MEDS: OLANZapine 5 MG TABLET PO (21:10)
[2023-06-22] MEDS: ARIPiprazole 2 MG TABLET PO (21:12)
[2023-06-22] MEDS: QUEtiapine Fumarate 100 MG TABLET PO (21:13)
[2023-06-22] MEDS: diphenhydrAMINE HCL 25 MG CAPSULE 50 MG PO (21:13)
[2023-06-23 08:00] VITALS: BP 107/63; PULSE 69; RESP 16; TEMP 36.9; O2SAT 97
[2023-06-23] MEDS: Gabapentin 400 MG CAPSULE 800 MG PO ×3 (08:29→20:05)
[2023-06-23] MEDS: busPIRone HCl 10 MG TABLET PO ×3 (08:29→20:06)
[2023-06-23] MEDS: metroNIDAZOLE 500 MG TABLET PO ×2 (08:29→17:06)
[2023-06-23] MEDS: Multivitamin TABLET 1 TAB PO (08:29)
[2023-06-23] MEDS: Escitalopram Oxalate 5 MG TABLET PO (08:30)
[2023-06-23] MEDS: Doxycycline Monohydrate 100 MG CAPSULE PO (08:30)
[2023-06-23] MEDS: Ketorolac Tromethamine 10 MG TABLET PO (08:30)
[2023-06-23] MEDS: buPROPion HCl XL 150 MG TAB.ER.24H PO (08:30)
[2023-06-23] MEDS: QUEtiapine Fumarate 50 MG TABLET PO ×2 (08:30→13:19)
[2023-06-23] MEDS: methADONE HCl 20 MG/2 ML ORAL.CONC 60 MG PO (08:31)
[2023-06-23] MEDS: Lidocaine 4 % Patch ADH..PATCH 1 PATCH TRANSDERMA ×2 (10:03→10:04)
[2023-06-23] MEDS: Nicotine 21 MG PATCH.TD24 TRANSDERMA (10:06)
[2023-06-23] MEDS: Nicotine Polacrilex 2 MG GUM BUCCAL ×3 (11:23→20:05)
[2023-06-23 13:19] VITALS: BP 107/60; PULSE 76
[2023-06-23] MEDS: cloNIDine HCL 0.1 MG TABLET PO ×2 (13:19→20:05)
--- NOTE | 2023-06-23 14:56 | P.PNPSI_ITS ---
Subjective Subjective Date of Service: 06/23/23 Reason For Visit: recurrent major depression; opiate/ cocain use d/o Subjective Notes: Conditional Voluntary Healthcare Proxy: No Guardianship: No Medical Problems Affecting Mental Status: No Interim History: Anxiety is still a problem ADHD medicine trials would be good to do also. Discussed with pt. Awaiting word from placement options Discussed Seroquel increase for anxiety Back pain regime she reports to be effective. Medication Compliance: Yes Side effects from medications: No Attending Groups: Intermittent Review of Systems Acute medical concerns: No Medical Review of Systems: unchanged Mental Status Exam Mental Status Exam Patient Appearance: Appropriate Patient Orientation: Person, Place, Time and Situation Level of Consciousness: Alert Patient Behavior: Appropriate, Talkative, Cooperative and Good Eye Contact Mood Description: Apprehensive Affect Description: Apprehensive Patient Cognition Impaired: No Ability to Follow Directions: Good Speech Pattern: Spontaneous Speech Memory Description: Episodic Impaired Hallucinations: None Delusions: Not Present Perceptual Disturbances: Depersonalization and Derealization Thought Process: Distracted and Rumination Thought Content: positive for Circumstantial, positive for Perseveration and positive for Suicidal Ideation (denies) Depressive Symptoms: Thoughts of /Suicide (denies) Judgement: Fair Diagnostics Vital Signs (24Hr): Vital Signs - 24 hr 06/22/23 18:00 06/23/23 08:00 06/23/23 13:19 Temperature 96.2 F L 98.5 F Pulse Rate 78 69 76 Respiratory Rate 16 16 Blood Pressure 110/66 107/63 107/60 Pulse Oximetry 99 97 Oxygen Delivery Method Room Air Room Air BMI result Body Mass Index 21.3 Labs 06/11/23 19:41 06/16/23 08:10 Imaging Radiology Impressions: ITS Impressions Knee X-Ray 06/11/23 15:53 IMPRESSION: 1. No acute findings. 2. Medullary femoral diaphyseal bone infarct. Cervical Spine CT 06/11/23 16:34 IMPRESSION: 1. No evidence of acute intracranial hemorrhage or edematous territorial infarction. 2. No evidence of acute fracture or traumatic subluxation of the cervical spine. 3. No evidence of acute fracture of the maxillofacial bones. 4. Small left parietal scalp hematoma. No associated osseous calvarial abnormalities. 5. Moderate maxillary odontogenic disease. Face CT 06/11/23 16:34 IMPRESSION: 1. No evidence of acute intracranial hemorrhage or edematous territorial infarction. 2. No evidence of acute fracture or traumatic subluxation of the cervical spine. 3. No evidence of acute fracture of the maxillofacial bones. 4. Small left parietal scalp hematoma. No associated osseous calvarial abnormalities. 5. Moderate maxillary odontogenic disease. Head CT 06/11/23 16:34 IMPRESSION: 1. No evidence of acute intracranial hemorrhage or edematous territorial infarction. 2. No evidence of acute fracture or traumatic subluxation of the cervical spine. 3. No evidence of acute fracture of the maxillofacial bones. 4. Small left parietal scalp hematoma. No associated osseous calvarial abnormalities. 5. Moderate maxillary odontogenic disease. Medications Medications Current Medications Al Hydroxide/Mg Hydroxide (Magnesium Hydrox/Alum Hydrox 30 Ml Oral.Susp) 30 ml PO Q6H PRN PRN Reason: Heartburn/Nausea Aripiprazole (Aripiprazole 2 Mg Tablet) 2 mg PO BEDTIME [facility] Last Admin: 06/22/23 21:12 Dose: 2 mg Baclofen (Baclofen 10 Mg Tablet) 10 mg PO BID PRN PRN Reason: muscle aches Last Admin: 06/22/23 21:13 Dose: 10 mg Bupropion HCl (Bupropion Hcl Xl 150 Mg Tab.Er.24h) 150 mg PO DAILY [facility] Last Admin: 06/23/23 08:30 Dose: 150 mg Buspirone HCl (Buspirone Hcl 10 Mg Tablet) 10 mg PO TID [facility] Last Admin: 06/23/23 14:02 Dose: 10 mg Clonidine HCl (Clonidine Hcl 0.1 Mg Tablet) 0.1 mg PO BEDTIME [facility]; Protocol Last Admin: 06/22/23 21:12 Dose: 0.1 mg Clonidine HCl (Clonidine Hcl 0.1 Mg Tablet) 0.1 mg PO Q6H PRN; Protocol PRN Reason: tachycardia/Anxiety Last Admin: 06/23/23 13:19 Dose: 0.1 mg Diphenhydramine HCl (Diphenhydramine Hcl 25 Mg Capsule) 50 mg PO BEDTIME [facility] Last Admin: 06/22/23 21:13 Dose: 50 mg Doxycycline Monohydrate (Doxycycline Monohydrate 100 Mg Capsule) 100 mg PO Q12H [facility] Stop: 06/23/23 20:59 Last Admin: 06/23/23 08:30 Dose: 100 mg Escitalopram Oxalate (Escitalopram Oxalate 5 Mg Tablet) 5 mg PO DAILY [facility] Last Admin: 06/23/23 08:30 Dose: 5 mg Gabapentin (Gabapentin 400 Mg Capsule) 800 mg PO TID ON [facility] OF [facility] Last Admin: 06/23/23 14:02 Dose: 800 mg Hydroxyzine HCl (Hydroxyzine Hcl 50 Mg Tablet) 50 mg PO TID PRN PRN Reason: Anxiety Last Admin: 06/22/23 18:51 Dose: 50 mg Ketorolac Tromethamine (Ketorolac Tromethamine 10 Mg Tablet) 10 mg PO Q6H PRN PRN Reason: back pain Stop: 06/27/23 11:25 Last Admin: 06/23/23 08:30 Dose: 10 mg Lidocaine (Lidocaine 4 % Patch Adh..Patch) 1 patch TRANSDERMA DAILY [facility]; Protocol Last Admin: 06/23/23 10:03 Dose: 1 patch Lidocaine (Lidocaine 4 % Patch Adh..Patch) 1 patch TRANSDERMA DAILY [facility]; Protocol Last Admin: 06/23/23 10:04 Dose: 1 patch Magnesium Hydroxide (Milk Of Magnesia 30 Ml Oral.Susp) 30 ml PO DAILY PRN PRN Reason: Constipation Melatonin (Melatonin 3 Mg Tablet) 6 mg PO BEDTIME [facility] Last Admin: 06/22/23 21:10 Dose: 6 mg Methadone HCl (Methadone Hcl 20 Mg/2 Ml Oral.Conc) 60 mg PO DAILY [facility] Last Admin: 06/23/23 08:31 Dose: 60 mg Metronidazole (Metronidazole 500 Mg Tablet) 500 mg PO Q12H [facility] Stop: 06/29/23 21:00 Last Admin: 06/23/23 08:29 Dose: 500 mg Multivitamins/Vitamin C (Multivitamin Tablet) 1 tab PO DAILY [facility] Last Admin: 06/23/23 08:29 Dose: 1 tab Nicotine (Nicotine 21 Mg Patch.Td24) 21 mg TRANSDERMA DAILY [facility] Last Admin: 06/23/23 10:06 Dose: 21 mg Nicotine Polacrilex (Nicotine Polacrilex 2 Mg Gum) 2 mg BUCCAL Q2H PRN PRN Reason: Nicotine Cravings Last Admin: 06/23/23 13:28 Dose: 2 mg Bio Oil Skincare Oil 1 each TOPICAL BID PRN PRN Reason: facial/nasal scars Last Admin: 06/23/23 11:23 Dose: 1 each Olanzapine (Olanzapine 5 Mg Tablet) 5 mg PO BID PRN PRN Reason: agitation, anxiety Last Admin: 06/22/23 21:10 Dose: 5 mg Ondansetron HCl (Ondansetron Odt 4 Mg Tab.Rapdis) 4 mg TRANSLINGU Q6H PRN PRN Reason: Nausea Last Admin: 06/22/23 18:51 Dose: 4 mg Quetiapine Fumarate (Quetiapine Fumarate 100 Mg Tablet) 100 mg PO BEDTIME [facility] Last Admin: 06/22/23 21:13 Dose: 100 mg Quetiapine Fumarate (Quetiapine Fumarate 100 Mg Tablet) 100 mg PO TID [facility] Allergies Allergies Allergy/AdvReac Type Severity Reaction Status Date / Time Penicillins [PENICILLINS] Allergy Severe ANAPHYLAXIS Verified 06/11/23 14:46 soap [SOAP] Allergy Intermediate ITCHING Verified 06/11/23 14:46 aspirin [ASA] Allergy Unknown ANAPHYLAXIS Verified 06/11/23 14:46 cat dander [cats] Allergy Unknown moderately Verified 06/11/23 14:46 severe latex [LATEX] Allergy Unknown ANAPHYLAXIS Verified 06/11/23 14:46 tramadol [TRAMADOL] Allergy Unknown HIVES, Rash Verified 06/11/23 14:46 acetaminophen [From Tylenol] Allergy Hives Verified 06/11/23 14:46 squid Allergy Unknown Verified 06/18/23 17:56 trazodone AdvReac Severe restless Verified 06/15/23 10:45 legs Assessment & Plan Assessment & Plan (1) MDD (major depressive disorder), recurrent episode, moderate: Status: Acute Code(s): F33.1 - Major depressive disorder, recurrent, moderate (2) Opioid abuse: Status: Acute Code(s): F11.10 - Opioid abuse, uncomplicated (3) Polysubstance use disorder: Status: Acute Code(s): F19.90 - Other psychoactive substance use, unspecified, uncomplicated Plan 32 yo female, hx of major depression, opiate and polysubstance use disorder, s/p relapse,fall. Recent detox where all of her psychotropics were stopped. 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 Plan: Increase Methadone to 35 mg today. 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 06/19 Patient reports that she remains quite depressed and very anxious. Wants help changing medications to deal with anxiety. Patient said that when she was last hospitalized her medications were different and she felt that she was doing better. Historian Dramatic Arts reviewed history and patient would like to get back on Lexapro and BuSpar. She said she used to be on Ambien at nighttime however marketing copywriter discussed that this is unlikely the best option and she instead agrees to increase Seroquel at bedtime and during the day. -will hold off increasing Wellbutrin further since patient is complaining of trouble sleeping 1 ?continue?current?medication?regimen?other?than?having?added?extra?lidocaine ?patch continue Seroquel to 50 mg b.i.d 0900, 1400. (up from 25 mg b.i.d.) Continue?bedtime Seroquel to 100 mg q.h.s. for continued insomnia Added clonidine 0.1 mg q.h.s. for insomnia Continue Lexapro 5 mg which patient was on before and says was helpful Continue BuSpar 10 mg t.i.d. which patient was on before and says was helpful Continue Abilify 2 mg daily 06/21/23: Metronidazole 500 mg bid x 7 days. 06/23/23 : Increase Seroqeul to 100 mg tid and 100 mg hs Await CSS placement Patient educated on: medication risk/benefits Informed Consent: understands Reason for continued inpatient stay Substantial Risk for: rapid decompensation Time Spent With Patient Time: Total time managing care of this patient today ____ minutes.
[2023-06-23] MEDS: QUEtiapine Fumarate 100 MG TABLET PO ×3 (15:01→20:06)
[2023-06-23] MEDS: hydrOXYzine HCL 50 MG TABLET PO (17:06)
[2023-06-23 18:19] LABS: Trichenella Antibody (IgG) NEGATIVE
[2023-06-23] MEDS: Ondansetron ODT 4 MG TAB.RAPDIS TRANSLINGU (19:02)
[2023-06-23] MEDS: OLANZapine 5 MG TABLET PO (19:05)
[2023-06-23 19:57] VITALS: BP 120/63; PULSE 73; TEMP 36.7
[2023-06-23] MEDS: Melatonin 3 MG TABLET 6 MG PO (20:06)
[2023-06-23] MEDS: ARIPiprazole 2 MG TABLET PO (20:06)
[2023-06-23] MEDS: diphenhydrAMINE HCL 25 MG CAPSULE 50 MG PO (20:06)
[2023-06-23] MEDS: Baclofen 10 MG TABLET PO (20:06)
[2023-06-24] MEDS: metroNIDAZOLE 500 MG TABLET PO ×2 (06:26→17:42)
[2023-06-24 07:00] VITALS: BMI 26.6
[2023-06-24 08:51] VITALS: BP 113/68; PULSE 67; RESP 16; TEMP 36.9; O2SAT 95
[2023-06-24] MEDS: buPROPion HCl XL 150 MG TAB.ER.24H PO (09:06)
[2023-06-24] MEDS: busPIRone HCl 10 MG TABLET PO ×3 (09:06→20:12)
[2023-06-24] MEDS: methADONE HCl 20 MG/2 ML ORAL.CONC 60 MG PO (09:06)
[2023-06-24] MEDS: Multivitamin TABLET 1 TAB PO (09:06)
[2023-06-24] MEDS: QUEtiapine Fumarate 100 MG TABLET PO ×4 (09:06→20:11)
[2023-06-24] MEDS: Escitalopram Oxalate 5 MG TABLET PO (09:06)
[2023-06-24] MEDS: Gabapentin 400 MG CAPSULE 800 MG PO ×3 (09:06→20:11)
[2023-06-24] MEDS: Nicotine Polacrilex 2 MG GUM BUCCAL (11:16)
[2023-06-24] MEDS: Nicotine 21 MG PATCH.TD24 TRANSDERMA (11:16)
[2023-06-24] MEDS: cloNIDine HCL 0.1 MG TABLET PO ×3 (11:16→20:11)
[2023-06-24] MEDS: Lidocaine 4 % Patch ADH..PATCH 1 PATCH TRANSDERMA (11:16)
--- NOTE | 2023-06-24 12:56 | P.PNPSI_ITS ---
Subjective Subjective Date of Service: 06/24/23 Reason For Visit: recurrent major depression; opiate/ cocain use d/o Subjective Notes: Conditional Voluntary Healthcare Proxy: No Guardianship: No Medical Problems Affecting Mental Status: No Interim History: Pt reports anxiety is decreased and she is feeling improved. Denies med side effects. States regime currently is useful Tells team last evening sx of depression are high, however, denies this today. Visable and social in the milieu today-no current questions or concerns, awaits CSS acceptance. Medication Compliance: Yes Side effects from medications: No Attending Groups: Intermittent Review of Systems Acute medical concerns: No Medical Review of Systems: unchanged Review of Systems Review of Systems Yes all other systems are reviewed and are negative Mental Status Exam Mental Status Exam Patient Appearance: Appropriate Patient Orientation: Person, Place, Time and Situation Level of Consciousness: Alert Patient Behavior: Appropriate, Talkative, Cooperative and Good Eye Contact Mood Description: Apprehensive Affect Description: Apprehensive Patient Cognition Impaired: No Ability to Follow Directions: Good Speech Pattern: Spontaneous Speech Memory Description: Episodic Impaired Hallucinations: None Delusions: Not Present Perceptual Disturbances: Depersonalization and Derealization Thought Process: Distracted and Rumination Thought Content: positive for Circumstantial, positive for Perseveration and positive for Suicidal Ideation (denies) Depressive Symptoms: Thoughts of /Suicide (denies) Judgement: Fair Diagnostics Vital Signs (24Hr): Vital Signs - 24 hr 06/23/23 13:19 06/23/23 19:57 06/24/23 08:51 Temperature 98.1 F 98.4 F Pulse Rate 76 73 67 Respiratory Rate 16 Blood Pressure 107/60 120/63 113/68 Pulse Oximetry 95 Oxygen Delivery Method Room Air BMI result Body Mass Index 26.6 Labs 06/11/23 19:41 06/16/23 08:10 Labs: Laboratory Results - last 48 hr 06/15/23 11:44 Trichinella Antibody NEGATIVE Imaging Radiology Impressions: ITS Impressions Knee X-Ray 06/11/23 15:53 IMPRESSION: 1. No acute findings. 2. Medullary femoral diaphyseal bone infarct. Cervical Spine CT 06/11/23 16:34 IMPRESSION: 1. No evidence of acute intracranial hemorrhage or edematous territorial infarction. 2. No evidence of acute fracture or traumatic subluxation of the cervical spine. 3. No evidence of acute fracture of the maxillofacial bones. 4. Small left parietal scalp hematoma. No associated osseous calvarial abnormalities. 5. Moderate maxillary odontogenic disease. Face CT 06/11/23 16:34 IMPRESSION: 1. No evidence of acute intracranial hemorrhage or edematous territorial infarction. 2. No evidence of acute fracture or traumatic subluxation of the cervical spine. 3. No evidence of acute fracture of the maxillofacial bones. 4. Small left parietal scalp hematoma. No associated osseous calvarial abnormalities. 5. Moderate maxillary odontogenic disease. Head CT 06/11/23 16:34 IMPRESSION: 1. No evidence of acute intracranial hemorrhage or edematous territorial infarction. 2. No evidence of acute fracture or traumatic subluxation of the cervical spine. 3. No evidence of acute fracture of the maxillofacial bones. 4. Small left parietal scalp hematoma. No associated osseous calvarial abnormalities. 5. Moderate maxillary odontogenic disease. Medications Medications Current Medications Al Hydroxide/Mg Hydroxide (Magnesium Hydrox/Alum Hydrox 30 Ml Oral.Susp) 30 ml PO Q6H PRN PRN Reason: Heartburn/Nausea Aripiprazole (Aripiprazole 2 Mg Tablet) 2 mg PO BEDTIME [facility] Last Admin: 06/23/23 20:06 Dose: 2 mg Baclofen (Baclofen 10 Mg Tablet) 10 mg PO BID PRN PRN Reason: muscle aches Last Admin: 06/23/23 20:06 Dose: 10 mg Bupropion HCl (Bupropion Hcl Xl 150 Mg Tab.Er.24h) 150 mg PO DAILY [facility] Last Admin: 06/24/23 09:06 Dose: 150 mg Buspirone HCl (Buspirone Hcl 10 Mg Tablet) 10 mg PO TID [facility] Last Admin: 06/24/23 09:06 Dose: 10 mg Clonidine HCl (Clonidine Hcl 0.1 Mg Tablet) 0.1 mg PO BEDTIME [facility]; Protocol Last Admin: 06/23/23 20:05 Dose: 0.1 mg Clonidine HCl (Clonidine Hcl 0.1 Mg Tablet) 0.1 mg PO Q6H PRN; Protocol PRN Reason: tachycardia/Anxiety Last Admin: 06/24/23 11:16 Dose: 0.1 mg Diphenhydramine HCl (Diphenhydramine Hcl 25 Mg Capsule) 50 mg PO BEDTIME [facility] Last Admin: 06/23/23 20:06 Dose: 50 mg Escitalopram Oxalate (Escitalopram Oxalate 5 Mg Tablet) 5 mg PO DAILY [facility] Last Admin: 06/24/23 09:06 Dose: 5 mg Gabapentin (Gabapentin 400 Mg Capsule) 800 mg PO TID [facility] Last Admin: 06/24/23 09:06 Dose: 800 mg Hydroxyzine HCl (Hydroxyzine Hcl 50 Mg Tablet) 50 mg PO TID PRN PRN Reason: Anxiety Last Admin: 06/23/23 17:06 Dose: 50 mg Ketorolac Tromethamine (Ketorolac Tromethamine 10 Mg Tablet) 10 mg PO Q6H PRN PRN Reason: back pain Stop: 06/27/23 11:25 Last Admin: 06/23/23 08:30 Dose: 10 mg Lidocaine (Lidocaine 4 % Patch Adh..Patch) 1 patch TRANSDERMA DAILY [facility]; Protocol Last Admin: 06/24/23 11:16 Dose: 1 patch Lidocaine (Lidocaine 4 % Patch Adh..Patch) 1 patch TRANSDERMA DAILY [facility]; Protocol Last Admin: 06/24/23 09:19 Dose: Not Given Magnesium Hydroxide (Milk Of Magnesia 30 Ml Oral.Susp) 30 ml PO DAILY PRN PRN Reason: Constipation Melatonin (Melatonin 3 Mg Tablet) 6 mg PO BEDTIME [facility] Last Admin: 06/23/23 20:06 Dose: 6 mg Methadone HCl (Methadone Hcl 20 Mg/2 Ml Oral.Conc) 60 mg PO DAILY [facility] Last Admin: 06/24/23 09:06 Dose: 60 mg Metronidazole (Metronidazole 500 Mg Tablet) 500 mg PO Q12H [facility] Stop: 06/29/23 21:00 Last Admin: 06/24/23 06:26 Dose: 500 mg Multivitamins/Vitamin C (Multivitamin Tablet) 1 tab PO DAILY [facility] Last Admin: 06/24/23 09:06 Dose: 1 tab Nicotine (Nicotine 21 Mg Patch.Td24) 21 mg TRANSDERMA DAILY [facility] Last Admin: 06/24/23 11:16 Dose: 21 mg Nicotine Polacrilex (Nicotine Polacrilex 2 Mg Gum) 2 mg BUCCAL Q2H PRN PRN Reason: Nicotine Cravings Last Admin: 06/24/23 11:16 Dose: 2 mg Bio Oil Skincare Oil 1 each TOPICAL BID PRN PRN Reason: facial/nasal scars Last Admin: 06/23/23 11:23 Dose: 1 each Olanzapine (Olanzapine 5 Mg Tablet) 5 mg PO BID PRN PRN Reason: agitation, anxiety Last Admin: 06/23/23 19:05 Dose: 5 mg Ondansetron HCl (Ondansetron Odt 4 Mg Tab.Rapdis) 4 mg TRANSLINGU Q6H PRN PRN Reason: Nausea Last Admin: 06/23/23 19:02 Dose: 4 mg Quetiapine Fumarate (Quetiapine Fumarate 100 Mg Tablet) 100 mg PO BEDTIME [facility] Last Admin: 06/23/23 20:05 Dose: 100 mg Quetiapine Fumarate (Quetiapine Fumarate 100 Mg Tablet) 100 mg PO TID [facility] Last Admin: 06/24/23 09:06 Dose: 100 mg Allergies Allergies Allergy/AdvReac Type Severity Reaction Status Date / Time Penicillins [PENICILLINS] Allergy Severe ANAPHYLAXIS Verified 06/11/23 14:46 soap [SOAP] Allergy Intermediate ITCHING Verified 06/11/23 14:46 aspirin [ASA] Allergy Unknown ANAPHYLAXIS Verified 06/11/23 14:46 cat dander [cats] Allergy Unknown moderately Verified 06/11/23 14:46 severe latex [LATEX] Allergy Unknown ANAPHYLAXIS Verified 06/11/23 14:46 tramadol [TRAMADOL] Allergy Unknown HIVES, Rash Verified 06/11/23 14:46 acetaminophen [From Tylenol] Allergy Hives Verified 06/11/23 14:46 squid Allergy Unknown Verified 06/18/23 17:56 trazodone AdvReac Severe restless Verified 06/15/23 10:45 legs Assessment & Plan Assessment & Plan (1) MDD (major depressive disorder), recurrent episode, moderate: Status: Acute Code(s): F33.1 - Major depressive disorder, recurrent, moderate (2) Opioid abuse: Status: Acute Code(s): F11.10 - Opioid abuse, uncomplicated (3) Polysubstance use disorder: Status: Acute Code(s): F19.90 - Other psychoactive substance use, unspecified, uncomplicated Plan 32 yo female, hx of major depression, opiate and polysubstance use disorder, s/p relapse,fall. Recent detox where all of her psychotropics were stopped. 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 Plan: Increase Methadone to 35 mg today. 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 06/19 Patient reports that she remains quite depressed and very anxious. Wants help changing medications to deal with anxiety. Patient said that when she was last hospitalized her medications were different and she felt that she was doing better. Braille Coder reviewed history and patient would like to get back on Lexapro and BuSpar. She said she used to be on Ambien at nighttime however documentation writer discussed that this is unlikely the best option and she instead agrees to increase Seroquel at bedtime and during the day. -will hold off increasing Wellbutrin further since patient is complaining of trouble sleeping 1 ?continue?current?medication?regimen?other?than?having?added?extra?lidocaine ?patch continue Seroquel to 50 mg b.i.d 0900, 1400. (up from 25 mg b.i.d.) Continue?bedtime Seroquel to 100 mg q.h.s. for continued insomnia Added clonidine 0.1 mg q.h.s. for insomnia Continue Lexapro 5 mg which patient was on before and says was helpful Continue BuSpar 10 mg t.i.d. which patient was on before and says was helpful Continue Abilify 2 mg daily 06/21/23: Metronidazole 500 mg bid x 7 days. 06/24/23: Continue current regime and plan of care. Informed Consent: understands Reason for continued inpatient stay Substantial Risk for: rapid decompensation Time Spent With Patient Time: Total time managing care of this patient today ____ minutes.
[2023-06-24] MEDS: hydrOXYzine HCL 50 MG TABLET PO (13:54)
[2023-06-24] MEDS: Ketorolac Tromethamine 10 MG TABLET PO (16:38)
[2023-06-24] MEDS: OLANZapine 5 MG TABLET PO (16:38)
[2023-06-24 18:40] VITALS: BP 121/65; PULSE 83; RESP 16; TEMP 36.6; O2SAT 96
[2023-06-24] MEDS: Baclofen 10 MG TABLET PO (19:05)
[2023-06-24 20:10] VITALS: BP 110/67; PULSE 78
[2023-06-24] MEDS: diphenhydrAMINE HCL 25 MG CAPSULE 50 MG PO (20:11)
[2023-06-24] MEDS: Melatonin 3 MG TABLET 6 MG PO (20:11)
[2023-06-24] MEDS: ARIPiprazole 2 MG TABLET PO (20:11)
[2023-06-25] MEDS: metroNIDAZOLE 500 MG TABLET PO ×2 (05:48→17:05)
[2023-06-25 08:00] VITALS: BP 118/74; PULSE 71; RESP 16; TEMP 36.6; O2SAT 94
[2023-06-25] MEDS: buPROPion HCl XL 150 MG TAB.ER.24H PO (08:35)
[2023-06-25] MEDS: QUEtiapine Fumarate 100 MG TABLET PO ×4 (08:35→20:25)
[2023-06-25] MEDS: Escitalopram Oxalate 5 MG TABLET PO (08:35)
[2023-06-25] MEDS: methADONE HCl 20 MG/2 ML ORAL.CONC 60 MG PO (08:35)
[2023-06-25] MEDS: Gabapentin 400 MG CAPSULE 800 MG PO ×3 (08:35→20:23)
[2023-06-25] MEDS: Multivitamin TABLET 1 TAB PO (08:35)
[2023-06-25] MEDS: busPIRone HCl 10 MG TABLET PO ×3 (08:35→20:25)
[2023-06-25] MEDS: hydrOXYzine HCL 50 MG TABLET PO (10:53)
[2023-06-25] MEDS: OLANZapine 5 MG TABLET PO (10:53)
[2023-06-25] MEDS: Lidocaine 4 % Patch ADH..PATCH 1 PATCH TRANSDERMA (10:54)
[2023-06-25] MEDS: Nicotine 21 MG PATCH.TD24 TRANSDERMA (10:54)
[2023-06-25] MEDS: Nicotine Polacrilex 2 MG GUM BUCCAL (12:58)
--- NOTE | 2023-06-25 13:04 | P.PNPSI_ITS ---
Subjective Subjective Date of Service: 06/25/23 Reason For Visit: recurrent major depression; opiate/ cocain use d/o Subjective Notes: Conditional Voluntary Healthcare Proxy: No Guardianship: No Medical Problems Affecting Mental Status: No Interim History: Pt reports depressive sx to team. Discussed increasing Wellbutrin and lexapro which she agrees we should trial. Anxiety is improved. Pt wanting Adderall trial which was discussed for out patient when depression and anxiety sx were better managed. Medication Compliance: Yes Side effects from medications: No Attending Groups: Yes Review of Systems Acute medical concerns: No Mental Status Exam Mental Status Exam Patient Appearance: Appropriate Patient Orientation: Person, Place, Time and Situation Level of Consciousness: Alert Patient Behavior: Appropriate, Talkative, Cooperative and Good Eye Contact Mood Description: Depressed Affect Description: Flat and Apprehensive Patient Cognition Impaired: No Ability to Follow Directions: Good Speech Pattern: Spontaneous Speech Memory Description: Episodic Impaired Hallucinations: None Delusions: Not Present Perceptual Disturbances: Depersonalization and Derealization Thought Process: Distracted and Rumination Thought Content: positive for Circumstantial, positive for Perseveration and positive for Suicidal Ideation (denies) Depressive Symptoms: Thoughts of /Suicide (denies) Judgement: Fair Diagnostics Vital Signs (24Hr): Vital Signs - 24 hr 06/24/23 18:40 06/24/23 20:10 06/25/23 08:00 Temperature 97.9 F 97.9 F Pulse Rate 83 78 71 Respiratory Rate 16 16 Blood Pressure 121/65 110/67 118/74 Pulse Oximetry 96 94 Oxygen Delivery Method Room Air Room Air BMI result Body Mass Index 26.6 Labs 06/11/23 19:41 06/16/23 08:10 Labs: Laboratory Results - last 48 hr 06/15/23 11:44 Trichinella Antibody NEGATIVE Imaging Radiology Impressions: ITS Impressions Knee X-Ray 06/11/23 15:53 IMPRESSION: 1. No acute findings. 2. Medullary femoral diaphyseal bone infarct. Cervical Spine CT 06/11/23 16:34 IMPRESSION: 1. No evidence of acute intracranial hemorrhage or edematous territorial infarction. 2. No evidence of acute fracture or traumatic subluxation of the cervical spine. 3. No evidence of acute fracture of the maxillofacial bones. 4. Small left parietal scalp hematoma. No associated osseous calvarial abnormalities. 5. Moderate maxillary odontogenic disease. Face CT 06/11/23 16:34 IMPRESSION: 1. No evidence of acute intracranial hemorrhage or edematous territorial infarction. 2. No evidence of acute fracture or traumatic subluxation of the cervical spine. 3. No evidence of acute fracture of the maxillofacial bones. 4. Small left parietal scalp hematoma. No associated osseous calvarial abnormalities. 5. Moderate maxillary odontogenic disease. Head CT 06/11/23 16:34 IMPRESSION: 1. No evidence of acute intracranial hemorrhage or edematous territorial infarction. 2. No evidence of acute fracture or traumatic subluxation of the cervical spine. 3. No evidence of acute fracture of the maxillofacial bones. 4. Small left parietal scalp hematoma. No associated osseous calvarial abnormalities. 5. Moderate maxillary odontogenic disease. Medications Medications Current Medications Al Hydroxide/Mg Hydroxide (Magnesium Hydrox/Alum Hydrox 30 Ml Oral.Susp) 30 ml PO Q6H PRN PRN Reason: Heartburn/Nausea Aripiprazole (Aripiprazole 2 Mg Tablet) 2 mg PO BEDTIME [facility] Last Admin: 06/24/23 20:11 Dose: 2 mg Baclofen (Baclofen 10 Mg Tablet) 10 mg PO BID PRN PRN Reason: muscle aches Last Admin: 06/24/23 19:05 Dose: 10 mg Bupropion HCl (Bupropion Hcl Xl 300 Mg Tab.Er.24h) 300 mg PO DAILY [facility] Buspirone HCl (Buspirone Hcl 10 Mg Tablet) 10 mg PO TID [facility] Last Admin: 06/25/23 08:35 Dose: 10 mg Capsaicin (Capsaicin 0.025% Cream 60 Gm Tube) 1 appl TOPICAL TID PRN; Protocol PRN Reason: Pain, Mild (Pain Scale 1-3) Clonidine HCl (Clonidine Hcl 0.1 Mg Tablet) 0.1 mg PO BEDTIME [facility]; Protocol Last Admin: 06/24/23 20:11 Dose: 0.1 mg Clonidine HCl (Clonidine Hcl 0.1 Mg Tablet) 0.1 mg PO Q6H PRN; Protocol PRN Reason: tachycardia/Anxiety Last Admin: 06/24/23 17:50 Dose: 0.1 mg Diphenhydramine HCl (Diphenhydramine Hcl 25 Mg Capsule) 50 mg PO BEDTIME [facility] Last Admin: 06/24/23 20:11 Dose: 50 mg Escitalopram Oxalate (Escitalopram Oxalate 10 Mg Tablet) 10 mg PO DAILY [facility] Gabapentin (Gabapentin 400 Mg Capsule) 800 mg PO TID [facility] Last Admin: 06/25/23 08:35 Dose: 800 mg Hydroxyzine HCl (Hydroxyzine Hcl 50 Mg Tablet) 50 mg PO TID PRN PRN Reason: Anxiety Last Admin: 06/25/23 10:53 Dose: 50 mg Ketorolac Tromethamine (Ketorolac Tromethamine 10 Mg Tablet) 10 mg PO Q6H PRN PRN Reason: back pain Stop: 06/27/23 11:25 Last Admin: 06/24/23 16:38 Dose: 10 mg Lidocaine (Lidocaine 4 % Patch Adh..Patch) 1 patch TRANSDERMA DAILY [facility]; Protocol Last Admin: 06/25/23 10:54 Dose: 1 patch Lidocaine (Lidocaine 4 % Patch Adh..Patch) 1 patch TRANSDERMA DAILY [facility]; Protocol Last Admin: 06/25/23 09:14 Dose: Not Given Magnesium Hydroxide (Milk Of Magnesia 30 Ml Oral.Susp) 30 ml PO DAILY PRN PRN Reason: Constipation Melatonin (Melatonin 3 Mg Tablet) 6 mg PO BEDTIME [facility] Last Admin: 06/24/23 20:11 Dose: 6 mg Methadone HCl (Methadone Hcl 20 Mg/2 Ml Oral.Conc) 60 mg PO DAILY [facility] Last Admin: 06/25/23 08:35 Dose: 60 mg Metronidazole (Metronidazole 500 Mg Tablet) 500 mg PO Q12H [facility] Stop: 06/29/23 21:00 Last Admin: 06/25/23 05:48 Dose: 500 mg Multivitamins/Vitamin C (Multivitamin Tablet) 1 tab PO DAILY [facility] Last Admin: 06/25/23 08:35 Dose: 1 tab Nicotine (Nicotine 21 Mg Patch.Td24) 21 mg TRANSDERMA DAILY [facility] Last Admin: 06/25/23 10:54 Dose: 21 mg Nicotine Polacrilex (Nicotine Polacrilex 2 Mg Gum) 2 mg BUCCAL Q2H PRN PRN Reason: Nicotine Cravings Last Admin: 06/25/23 12:58 Dose: 2 mg Bio Oil Skincare Oil 1 each TOPICAL BID PRN PRN Reason: facial/nasal scars Last Admin: 06/25/23 12:58 Dose: 1 each Olanzapine (Olanzapine 5 Mg Tablet) 5 mg PO BID PRN PRN Reason: agitation, anxiety Last Admin: 06/25/23 10:53 Dose: 5 mg Ondansetron HCl (Ondansetron Odt 4 Mg Tab.Rapdis) 4 mg TRANSLINGU Q6H PRN PRN Reason: Nausea Last Admin: 06/23/23 19:02 Dose: 4 mg Quetiapine Fumarate (Quetiapine Fumarate 100 Mg Tablet) 100 mg PO BEDTIME [facility] Last Admin: 06/24/23 20:11 Dose: 100 mg Quetiapine Fumarate (Quetiapine Fumarate 100 Mg Tablet) 100 mg PO TID [facility] Last Admin: 06/25/23 08:35 Dose: 100 mg Allergies Allergies Allergy/AdvReac Type Severity Reaction Status Date / Time Penicillins [PENICILLINS] Allergy Severe ANAPHYLAXIS Verified 06/11/23 14:46 soap [SOAP] Allergy Intermediate ITCHING Verified 06/11/23 14:46 aspirin [ASA] Allergy Unknown ANAPHYLAXIS Verified 06/11/23 14:46 cat dander [cats] Allergy Unknown moderately Verified 06/11/23 14:46 severe latex [LATEX] Allergy Unknown ANAPHYLAXIS Verified 06/11/23 14:46 tramadol [TRAMADOL] Allergy Unknown HIVES, Rash Verified 06/11/23 14:46 acetaminophen [From Tylenol] Allergy Hives Verified 06/11/23 14:46 squid Allergy Unknown Verified 06/18/23 17:56 trazodone AdvReac Severe restless Verified 06/15/23 10:45 legs Assessment & Plan Assessment & Plan (1) MDD (major depressive disorder), recurrent episode, moderate: Status: Acute Code(s): F33.1 - Major depressive disorder, recurrent, moderate (2) Opioid abuse: Status: Acute Code(s): F11.10 - Opioid abuse, uncomplicated (3) Polysubstance use disorder: Status: Acute Code(s): F19.90 - Other psychoactive substance use, unspecified, uncomplicated Plan 32 yo female, hx of major depression, opiate and polysubstance use disorder, s/p relapse,fall. Recent detox where all of her psychotropics were stopped. 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 Plan: Increase Methadone to 35 mg today. 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 06/19 Patient reports that she remains quite depressed and very anxious. Wants help changing medications to deal with anxiety. Patient said that when she was last hospitalized her medications were different and she felt that she was doing better. Ship Wirer reviewed history and patient would like to get back on Lexapro and BuSpar. She said she used to be on Ambien at nighttime however lyric writer discussed that this is unlikely the best option and she instead agrees to increase Seroquel at bedtime and during the day. -will hold off increasing Wellbutrin further since patient is complaining of trouble sleeping 1 ?continue?current?medication?regimen?other?than?having?added?extra?lidocaine ?patch continue Seroquel to 50 mg b.i.d 0900, 1400. (up from 25 mg b.i.d.) Continue?bedtime Seroquel to 100 mg q.h.s. for continued insomnia Added clonidine 0.1 mg q.h.s. for insomnia Continue Lexapro 5 mg which patient was on before and says was helpful Continue BuSpar 10 mg t.i.d. which patient was on before and says was helpful Continue Abilify 2 mg daily 06/21/23: Metronidazole 500 mg bid x 7 days. 06/24/23: Continue current regime and plan of care. 06/25/23: Increase Wellbutrin XL to 300 mg daily Increase Lexapro to 10 mg daily Patient educated on: medication risk/benefits Informed Consent: understands Reason for continued inpatient stay Substantial Risk for: rapid decompensation Time Spent With Patient Time: Total time managing care of this patient today ____ minutes.
[2023-06-25 18:00] VITALS: BP 106/6; PULSE 80; TEMP 36.3; O2SAT 95
[2023-06-25] MEDS: Ketorolac Tromethamine 10 MG TABLET PO (20:22)
[2023-06-25] MEDS: diphenhydrAMINE HCL 25 MG CAPSULE 50 MG PO (20:23)
[2023-06-25] MEDS: Melatonin 3 MG TABLET 6 MG PO (20:25)
[2023-06-25] MEDS: ARIPiprazole 2 MG TABLET PO (20:25)
[2023-06-25] MEDS: cloNIDine HCL 0.1 MG TABLET PO (20:27)
[2023-06-25] MEDS: Capsaicin 0.025% Cream 60 GM TUBE 1 APPL TOPICAL (22:26)
[2023-06-26] MEDS: metroNIDAZOLE 500 MG TABLET PO ×2 (06:40→17:36)
[2023-06-26 08:00] VITALS: BP 120/74; PULSE 78; RESP 16; TEMP 36.9; O2SAT 97
[2023-06-26] MEDS: busPIRone HCl 10 MG TABLET PO ×3 (08:38→20:24)
[2023-06-26] MEDS: Multivitamin TABLET 1 TAB PO (08:38)
[2023-06-26] MEDS: Gabapentin 400 MG CAPSULE 800 MG PO ×3 (08:38→20:23)
[2023-06-26] MEDS: methADONE HCl 20 MG/2 ML ORAL.CONC 60 MG PO (08:38)
[2023-06-26] MEDS: QUEtiapine Fumarate 100 MG TABLET PO ×3 (08:38→20:26)
[2023-06-26] MEDS: buPROPion HCl XL 300 MG TAB.ER.24H PO (08:38)
[2023-06-26] MEDS: Escitalopram Oxalate 10 MG TABLET PO (08:38)
[2023-06-26] MEDS: Ketorolac Tromethamine 10 MG TABLET PO ×2 (10:19→17:41)
[2023-06-26] MEDS: Lidocaine 4 % Patch ADH..PATCH 1 PATCH TRANSDERMA ×2 (10:21)
[2023-06-26] MEDS: Nicotine 21 MG PATCH.TD24 TRANSDERMA (10:21)
[2023-06-26 12:05] VITALS: BP 110/61; PULSE 76
[2023-06-26] MEDS: cloNIDine HCL 0.1 MG TABLET PO ×3 (12:10→20:24)
[2023-06-26] MEDS: Capsaicin 0.025% Cream 60 GM TUBE 1 APPL TOPICAL (12:11)
--- NOTE | 2023-06-26 12:17 | P.PNPSI_ITS ---
Subjective Subjective Date of Service: 06/26/23 Reason For Visit: recurrent major depression; opiate/ cocain use d/o Subjective Notes: Conditional Voluntary Healthcare Proxy: No Guardianship: No Medical Problems Affecting Mental Status: No Interim History: Was irritable, pressured yesterday, less so today. Reports feeling stressed and anxious causing her to have trouble sleeping. Eating OK. Wants a med for depression reminded that she is on several meds for mood and that abstaining from substances will also improve mood. Medication Compliance: Yes Side effects from medications: No Attending Groups: No Review of Systems Acute medical concerns: No Medical Review of Systems: unchanged Mental Status Exam Mental Status Exam Patient Appearance: Well Grooomed Patient Orientation: Person, Place, Time and Situation Level of Consciousness: Alert Patient Behavior: Appropriate Affect Description: Anxious Patient Cognition Impaired: No Ability to Follow Directions: Excellent Speech Pattern: Clear Memory Description: Intact Hallucinations: None Delusions: Not Present Thought Process: Goal Oriented Depressive Symptoms: Increased Anxiety and Insomnia Judgement: Fair Diagnostics Vital Signs (24Hr): Vital Signs - 24 hr 06/25/23 18:00 06/26/23 08:00 06/26/23 12:05 Temperature 97.4 F 98.4 F Pulse Rate 80 78 76 Respiratory Rate 16 Blood Pressure 106/6 L 120/74 110/61 Pulse Oximetry 95 97 Oxygen Delivery Method Room Air Room Air BMI result Body Mass Index 26.6 Labs 06/11/23 19:41 06/16/23 08:10 Imaging Radiology Impressions: ITS Impressions Knee X-Ray 06/11/23 15:53 IMPRESSION: 1. No acute findings. 2. Medullary femoral diaphyseal bone infarct. Cervical Spine CT 06/11/23 16:34 IMPRESSION: 1. No evidence of acute intracranial hemorrhage or edematous territorial infarction. 2. No evidence of acute fracture or traumatic subluxation of the cervical spine. 3. No evidence of acute fracture of the maxillofacial bones. 4. Small left parietal scalp hematoma. No associated osseous calvarial abnormalities. 5. Moderate maxillary odontogenic disease. Face CT 06/11/23 16:34 IMPRESSION: 1. No evidence of acute intracranial hemorrhage or edematous territorial infarction. 2. No evidence of acute fracture or traumatic subluxation of the cervical spine. 3. No evidence of acute fracture of the maxillofacial bones. 4. Small left parietal scalp hematoma. No associated osseous calvarial abnormalities. 5. Moderate maxillary odontogenic disease. Head CT 06/11/23 16:34 IMPRESSION: 1. No evidence of acute intracranial hemorrhage or edematous territorial infarction. 2. No evidence of acute fracture or traumatic subluxation of the cervical spine. 3. No evidence of acute fracture of the maxillofacial bones. 4. Small left parietal scalp hematoma. No associated osseous calvarial abnormalities. 5. Moderate maxillary odontogenic disease. Medications Medications Current Medications Al Hydroxide/Mg Hydroxide (Magnesium Hydrox/Alum Hydrox 30 Ml Oral.Susp) 30 ml PO Q6H PRN PRN Reason: Heartburn/Nausea Aripiprazole (Aripiprazole 2 Mg Tablet) 2 mg PO BEDTIME [facility] Last Admin: 06/25/23 20:25 Dose: 2 mg Baclofen (Baclofen 10 Mg Tablet) 10 mg PO BID PRN PRN Reason: muscle aches Last Admin: 06/24/23 19:05 Dose: 10 mg Bupropion HCl (Bupropion Hcl Xl 300 Mg Tab.Er.24h) 300 mg PO DAILY [facility] Last Admin: 06/26/23 08:38 Dose: 300 mg Buspirone HCl (Buspirone Hcl 10 Mg Tablet) 10 mg PO TID [facility] Last Admin: 06/26/23 08:38 Dose: 10 mg Capsaicin (Capsaicin 0.025% Cream 60 Gm Tube) 1 appl TOPICAL TID PRN; Protocol PRN Reason: Pain, Mild (Pain Scale 1-3) Last Admin: 06/26/23 12:11 Dose: 1 appl Clonidine HCl (Clonidine Hcl 0.1 Mg Tablet) 0.1 mg PO BEDTIME [facility]; Protocol Last Admin: 06/25/23 20:27 Dose: 0.1 mg Clonidine HCl (Clonidine Hcl 0.1 Mg Tablet) 0.1 mg PO Q6H PRN; Protocol PRN Reason: tachycardia/Anxiety Last Admin: 06/26/23 12:10 Dose: 0.1 mg Diphenhydramine HCl (Diphenhydramine Hcl 25 Mg Capsule) 50 mg PO BEDTIME [facility] Last Admin: 06/25/23 20:23 Dose: 50 mg Escitalopram Oxalate (Escitalopram Oxalate 10 Mg Tablet) 10 mg PO DAILY [facility] Last Admin: 06/26/23 08:38 Dose: 10 mg Gabapentin (Gabapentin 400 Mg Capsule) 800 mg PO TID [facility] Last Admin: 06/26/23 08:38 Dose: 800 mg Hydroxyzine HCl (Hydroxyzine Hcl 50 Mg Tablet) 50 mg PO TID PRN PRN Reason: Anxiety Last Admin: 06/25/23 10:53 Dose: 50 mg Ketorolac Tromethamine (Ketorolac Tromethamine 10 Mg Tablet) 10 mg PO Q6H PRN PRN Reason: back pain Stop: 06/27/23 11:25 Last Admin: 06/26/23 10:19 Dose: 10 mg Lidocaine (Lidocaine 4 % Patch Adh..Patch) 1 patch TRANSDERMA DAILY [facility]; Protocol Last Admin: 06/26/23 10:21 Dose: 1 patch Lidocaine (Lidocaine 4 % Patch Adh..Patch) 1 patch TRANSDERMA DAILY [facility]; Protocol Last Admin: 06/26/23 10:21 Dose: 1 patch Magnesium Hydroxide (Milk Of Magnesia 30 Ml Oral.Susp) 30 ml PO DAILY PRN PRN Reason: Constipation Melatonin (Melatonin 3 Mg Tablet) 6 mg PO BEDTIME [facility] Last Admin: 06/25/23 20:25 Dose: 6 mg Methadone HCl (Methadone Hcl 20 Mg/2 Ml Oral.Conc) 60 mg PO DAILY [facility] Last Admin: 06/26/23 08:38 Dose: 60 mg Metronidazole (Metronidazole 500 Mg Tablet) 500 mg PO Q12H [facility] Stop: 06/29/23 21:00 Last Admin: 06/26/23 06:40 Dose: 500 mg Multivitamins/Vitamin C (Multivitamin Tablet) 1 tab PO DAILY [facility] Last Admin: 06/26/23 08:38 Dose: 1 tab Nicotine (Nicotine 21 Mg Patch.Td24) 21 mg TRANSDERMA DAILY [facility] Last Admin: 06/26/23 10:21 Dose: 21 mg Nicotine Polacrilex (Nicotine Polacrilex 2 Mg Gum) 2 mg BUCCAL Q2H PRN PRN Reason: Nicotine Cravings Last Admin: 06/25/23 12:58 Dose: 2 mg Bio Oil Skincare Oil 1 each TOPICAL BID PRN PRN Reason: facial/nasal scars Last Admin: 06/26/23 12:11 Dose: 1 each Olanzapine (Olanzapine 5 Mg Tablet) 5 mg PO BID PRN PRN Reason: agitation, anxiety Last Admin: 06/25/23 10:53 Dose: 5 mg Ondansetron HCl (Ondansetron Odt 4 Mg Tab.Rapdis) 4 mg TRANSLINGU Q6H PRN PRN Reason: Nausea Last Admin: 06/23/23 19:02 Dose: 4 mg Quetiapine Fumarate (Quetiapine Fumarate 100 Mg Tablet) 100 mg PO BEDTIME [facility] Last Admin: 06/25/23 20:24 Dose: 100 mg Quetiapine Fumarate (Quetiapine Fumarate 100 Mg Tablet) 100 mg PO TID [facility] Last Admin: 06/26/23 08:38 Dose: 100 mg Allergies Allergies Allergy/AdvReac Type Severity Reaction Status Date / Time Penicillins [PENICILLINS] Allergy Severe ANAPHYLAXIS Verified 06/11/23 14:46 soap [SOAP] Allergy Intermediate ITCHING Verified 06/11/23 14:46 aspirin [ASA] Allergy Unknown ANAPHYLAXIS Verified 06/11/23 14:46 cat dander [cats] Allergy Unknown moderately Verified 06/11/23 14:46 severe latex [LATEX] Allergy Unknown ANAPHYLAXIS Verified 06/11/23 14:46 tramadol [TRAMADOL] Allergy Unknown HIVES, Rash Verified 06/11/23 14:46 acetaminophen [From Tylenol] Allergy Hives Verified 06/11/23 14:46 squid Allergy Unknown Verified 06/18/23 17:56 trazodone AdvReac Severe restless Verified 06/15/23 10:45 legs Assessment & Plan Assessment & Plan (1) MDD (major depressive disorder), recurrent episode, moderate: Status: Acute Code(s): F33.1 - Major depressive disorder, recurrent, moderate (2) Opioid abuse: Status: Acute Code(s): F11.10 - Opioid abuse, uncomplicated (3) Polysubstance use disorder: Status: Acute Code(s): F19.90 - Other psychoactive substance use, unspecified, uncomplicated Plan 32 yo female, hx of major depression, opiate and polysubstance use disorder, s/p relapse,fall. Recent detox where all of her psychotropics were stopped. 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 Plan: Increase Methadone to 35 mg today. 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 06/19 Patient reports that she remains quite depressed and very anxious. Wants help changing medications to deal with anxiety. Patient said that when she was last hospitalized her medications were different and she felt that she was doing better. Motor Vehicle Examiner reviewed history and patient would like to get back on Lexapro and BuSpar. She said she used to be on Ambien at nighttime however service writer discussed that this is unlikely the best option and she instead agrees to increase Seroquel at bedtime and during the day. -will hold off increasing Wellbutrin further since patient is complaining of trouble sleeping 1 ?continue?current?medication?regimen?other?than?having?added?extra?lidocaine ?patch continue Seroquel to 50 mg b.i.d 0900, 1400. (up from 25 mg b.i.d.) Continue?bedtime Seroquel to 100 mg q.h.s. for continued insomnia Added clonidine 0.1 mg q.h.s. for insomnia Continue Lexapro 5 mg which patient was on before and says was helpful Continue BuSpar 10 mg t.i.d. which patient was on before and says was helpful Continue Abilify 2 mg daily 06/21/23: Metronidazole 500 mg bid x 7 days. 06/24/23: Continue current regime and plan of care. 06/25/23: Increase Wellbutrin XL to 300 mg daily Increase Lexapro to 10 mg daily 06/26/23: no changes today Reason for continued inpatient stay Substantial Risk for: rapid decompensation Time Spent With Patient Time: Total time managing care of this patient today ____ minutes.
[2023-06-26] MEDS: Nicotine Polacrilex 2 MG GUM BUCCAL (13:43)
[2023-06-26] MEDS: hydrOXYzine HCL 50 MG TABLET PO (14:56)
--- NOTE | 2023-06-26 15:13 | PC.NURSE ---
Redness/irritation noted to lower back at site of Capsaicin application. Following irritation, pt washed area with soap and water to remove medication from area.
[2023-06-26 16:55] VITALS: BP 114/63; PULSE 77; RESP 16; TEMP 36.6; O2SAT 97
[2023-06-26] MEDS: Baclofen 10 MG TABLET PO (17:41)
[2023-06-26] MEDS: diphenhydrAMINE HCL 25 MG CAPSULE 50 MG PO (20:22)
[2023-06-26] MEDS: ARIPiprazole 2 MG TABLET PO (20:23)
[2023-06-26] MEDS: Melatonin 3 MG TABLET 6 MG PO (20:24)
[2023-06-27] MEDS: metroNIDAZOLE 500 MG TABLET PO ×2 (06:18→18:42)
[2023-06-27 08:00] VITALS: BP 116/72; PULSE 79; RESP 16; TEMP 36.7; O2SAT 96
[2023-06-27] MEDS: Ketorolac Tromethamine 10 MG TABLET PO (08:45)
[2023-06-27] MEDS: busPIRone HCl 10 MG TABLET PO ×3 (08:45→19:55)
[2023-06-27] MEDS: Multivitamin TABLET 1 TAB PO (08:46)
[2023-06-27] MEDS: Gabapentin 400 MG CAPSULE 800 MG PO ×3 (08:46→19:55)
[2023-06-27] MEDS: methADONE HCl 20 MG/2 ML ORAL.CONC 60 MG PO (08:46)
[2023-06-27] MEDS: QUEtiapine Fumarate 100 MG TABLET PO ×3 (08:46→19:57)
[2023-06-27] MEDS: Escitalopram Oxalate 10 MG TABLET PO (08:46)
[2023-06-27] MEDS: Nicotine 21 MG PATCH.TD24 TRANSDERMA (10:04)
[2023-06-27] MEDS: Lidocaine 4 % Patch ADH..PATCH 1 PATCH TRANSDERMA ×2 (10:05→10:07)
[2023-06-27] MEDS: hydrOXYzine HCL 50 MG TABLET PO ×2 (10:08→16:35)
[2023-06-27] MEDS: cloNIDine HCL 0.1 MG TABLET PO ×2 (10:08→19:54)
[2023-06-27] MEDS: Nicotine Polacrilex 2 MG GUM BUCCAL ×2 (10:38→16:30)
--- NOTE | 2023-06-27 10:57 | P.PNPSI_ITS ---
Subjective Subjective Date of Service: 06/27/23 Reason For Visit: recurrent major depression; opiate/ cocain use d/o Subjective Notes: Conditional Voluntary Guardianship: No Medical Problems Affecting Mental Status: No Interim History: Reports feeling a little down with high levels of anxiety. States appetite is off and on with intermittent nausea. Sleeping OK. Medication Compliance: Yes Side effects from medications: Yes (possible nausea since increased wellbutrin) Attending Groups: Intermittent Review of Systems Acute medical concerns: No Medical Review of Systems: unchanged Mental Status Exam Mental Status Exam Patient Appearance: Unkempt Patient Orientation: Person, Place, Time and Situation Level of Consciousness: Alert Patient Behavior: Appropriate Mood Description: Anxious Affect Description: Depressed Patient Cognition Impaired: No Ability to Follow Directions: Good Speech Pattern: Clear Memory Description: Intact Hallucinations: None Delusions: Not Present Thought Process: Linear Depressive Symptoms: Increased Anxiety and Changes in Appetite Judgement: Fair Diagnostics Vital Signs (24Hr): Vital Signs - 24 hr 06/26/23 12:05 06/26/23 16:55 06/27/23 08:00 Temperature 97.9 F 98.1 F Pulse Rate 76 77 79 Respiratory Rate 16 16 Blood Pressure 110/61 114/63 116/72 Pulse Oximetry 97 96 Oxygen Delivery Method Room Air Room Air BMI result Body Mass Index 26.6 Labs 06/11/23 19:41 06/16/23 08:10 Imaging Radiology Impressions: ITS Impressions Knee X-Ray 06/11/23 15:53 IMPRESSION: 1. No acute findings. 2. Medullary femoral diaphyseal bone infarct. Cervical Spine CT 06/11/23 16:34 IMPRESSION: 1. No evidence of acute intracranial hemorrhage or edematous territorial infarction. 2. No evidence of acute fracture or traumatic subluxation of the cervical spine. 3. No evidence of acute fracture of the maxillofacial bones. 4. Small left parietal scalp hematoma. No associated osseous calvarial abnormalities. 5. Moderate maxillary odontogenic disease. Face CT 06/11/23 16:34 IMPRESSION: 1. No evidence of acute intracranial hemorrhage or edematous territorial infarction. 2. No evidence of acute fracture or traumatic subluxation of the cervical spine. 3. No evidence of acute fracture of the maxillofacial bones. 4. Small left parietal scalp hematoma. No associated osseous calvarial abnormalities. 5. Moderate maxillary odontogenic disease. Head CT 06/11/23 16:34 IMPRESSION: 1. No evidence of acute intracranial hemorrhage or edematous territorial infarction. 2. No evidence of acute fracture or traumatic subluxation of the cervical spine. 3. No evidence of acute fracture of the maxillofacial bones. 4. Small left parietal scalp hematoma. No associated osseous calvarial abnormalities. 5. Moderate maxillary odontogenic disease. Medications Medications Current Medications Al Hydroxide/Mg Hydroxide (Magnesium Hydrox/Alum Hydrox 30 Ml Oral.Susp) 30 ml PO Q6H PRN PRN Reason: Heartburn/Nausea Aripiprazole (Aripiprazole 2 Mg Tablet) 2 mg PO BEDTIME [facility] Last Admin: 06/26/23 20:23 Dose: 2 mg Baclofen (Baclofen 10 Mg Tablet) 10 mg PO BID PRN PRN Reason: muscle aches Last Admin: 06/26/23 17:41 Dose: 10 mg Bupropion HCl (Bupropion Hcl Xl 300 Mg Tab.Er.24h) 300 mg PO DAILY [facility] Last Admin: 06/27/23 09:01 Dose: Not Given Buspirone HCl (Buspirone Hcl 10 Mg Tablet) 10 mg PO TID [facility] Last Admin: 06/27/23 08:45 Dose: 10 mg Capsaicin (Capsaicin 0.025% Cream 60 Gm Tube) 1 appl TOPICAL TID PRN; Protocol PRN Reason: Pain, Mild (Pain Scale 1-3) Last Admin: 06/26/23 12:11 Dose: 1 appl Clonidine HCl (Clonidine Hcl 0.1 Mg Tablet) 0.1 mg PO BEDTIME [facility]; Protocol Last Admin: 06/26/23 20:24 Dose: 0.1 mg Clonidine HCl (Clonidine Hcl 0.1 Mg Tablet) 0.1 mg PO Q6H PRN; Protocol PRN Reason: tachycardia/Anxiety Last Admin: 06/27/23 10:08 Dose: 0.1 mg Diphenhydramine HCl (Diphenhydramine Hcl 25 Mg Capsule) 50 mg PO BEDTIME [facility] Last Admin: 06/26/23 20:22 Dose: 50 mg Escitalopram Oxalate (Escitalopram Oxalate 10 Mg Tablet) 10 mg PO DAILY [facility] Last Admin: 06/27/23 08:46 Dose: 10 mg Gabapentin (Gabapentin 400 Mg Capsule) 800 mg PO TID [facility] Last Admin: 06/27/23 08:46 Dose: 800 mg Hydroxyzine HCl (Hydroxyzine Hcl 50 Mg Tablet) 50 mg PO TID PRN PRN Reason: Anxiety Last Admin: 06/27/23 10:08 Dose: 50 mg Ketorolac Tromethamine (Ketorolac Tromethamine 10 Mg Tablet) 10 mg PO Q6H PRN PRN Reason: back pain Stop: 06/27/23 11:25 Last Admin: 06/27/23 08:45 Dose: 10 mg Lidocaine (Lidocaine 4 % Patch Adh..Patch) 1 patch TRANSDERMA DAILY [facility]; Protocol Last Admin: 06/27/23 10:05 Dose: 1 patch Lidocaine (Lidocaine 4 % Patch Adh..Patch) 1 patch TRANSDERMA DAILY [facility]; Protocol Last Admin: 06/27/23 10:07 Dose: 1 patch Magnesium Hydroxide (Milk Of Magnesia 30 Ml Oral.Susp) 30 ml PO DAILY PRN PRN Reason: Constipation Melatonin (Melatonin 3 Mg Tablet) 6 mg PO BEDTIME [facility] Last Admin: 06/26/23 20:24 Dose: 6 mg Methadone HCl (Methadone Hcl 20 Mg/2 Ml Oral.Conc) 60 mg PO DAILY [facility] Last Admin: 06/27/23 08:46 Dose: 60 mg Metronidazole (Metronidazole 500 Mg Tablet) 500 mg PO Q12H [facility] Stop: 06/29/23 21:00 Last Admin: 06/27/23 06:18 Dose: 500 mg Multivitamins/Vitamin C (Multivitamin Tablet) 1 tab PO DAILY [facility] Last Admin: 06/27/23 08:46 Dose: 1 tab Nicotine (Nicotine 21 Mg Patch.Td24) 21 mg TRANSDERMA DAILY [facility] Last Admin: 06/27/23 10:04 Dose: 21 mg Nicotine Polacrilex (Nicotine Polacrilex 2 Mg Gum) 2 mg BUCCAL Q2H PRN PRN Reason: Nicotine Cravings Last Admin: 06/27/23 10:38 Dose: 2 mg Bio Oil Skincare Oil 1 each TOPICAL BID PRN PRN Reason: facial/nasal scars Last Admin: 06/27/23 08:46 Dose: 1 each Olanzapine (Olanzapine 5 Mg Tablet) 5 mg PO BID PRN PRN Reason: agitation, anxiety Last Admin: 06/25/23 10:53 Dose: 5 mg Ondansetron HCl (Ondansetron Odt 4 Mg Tab.Rapdis) 4 mg TRANSLINGU Q6H PRN PRN Reason: Nausea Last Admin: 06/23/23 19:02 Dose: 4 mg Quetiapine Fumarate (Quetiapine Fumarate 100 Mg Tablet) 100 mg PO BEDTIME [facility] Last Admin: 06/26/23 20:26 Dose: 100 mg Quetiapine Fumarate (Quetiapine Fumarate 100 Mg Tablet) 100 mg PO TID [facility] Last Admin: 06/27/23 08:46 Dose: 100 mg Saliva Substitute (Dry Mouth [place] 60 Ml [place]) 1 spray MUCOUS MEM Q2H PRN PRN Reason: Dry Mouth Allergies Allergies Allergy/AdvReac Type Severity Reaction Status Date / Time Penicillins [PENICILLINS] Allergy Severe ANAPHYLAXIS Verified 06/11/23 14:46 soap [SOAP] Allergy Intermediate ITCHING Verified 06/11/23 14:46 aspirin [ASA] Allergy Unknown ANAPHYLAXIS Verified 06/11/23 14:46 cat dander [cats] Allergy Unknown moderately Verified 06/11/23 14:46 severe latex [LATEX] Allergy Unknown ANAPHYLAXIS Verified 06/11/23 14:46 tramadol [TRAMADOL] Allergy Unknown HIVES, Rash Verified 06/11/23 14:46 acetaminophen [From Tylenol] Allergy Hives Verified 06/11/23 14:46 squid Allergy Unknown Verified 06/18/23 17:56 trazodone AdvReac Severe restless Verified 06/15/23 10:45 legs Assessment & Plan Assessment & Plan (1) MDD (major depressive disorder), recurrent episode, moderate: Status: Acute Code(s): F33.1 - Major depressive disorder, recurrent, moderate (2) Opioid abuse: Status: Acute Code(s): F11.10 - Opioid abuse, uncomplicated (3) Polysubstance use disorder: Status: Acute Code(s): F19.90 - Other psychoactive substance use, unspecified, uncomplicated Plan 32 yo female, hx of major depression, opiate and polysubstance use disorder, s/p relapse,fall. Recent detox where all of her psychotropics were stopped. 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 Plan: Increase Methadone to 35 mg today. 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 06/19 Patient reports that she remains quite depressed and very anxious. Wants help changing medications to deal with anxiety. Patient said that when she was last hospitalized her medications were different and she felt that she was doing better. Candles Pourer reviewed history and patient would like to get back on Lexapro and BuSpar. She said she used to be on Ambien at nighttime however appeals writer discussed that this is unlikely the best option and she instead agrees to increase Seroquel at bedtime and during the day. -will hold off increasing Wellbutrin further since patient is complaining of trouble sleeping 1 ?continue?current?medication?regimen?other?than?having?added?extra?lidocaine ?patch continue Seroquel to 50 mg b.i.d 0900, 1400. (up from 25 mg b.i.d.) Continue?bedtime Seroquel to 100 mg q.h.s. for continued insomnia Added clonidine 0.1 mg q.h.s. for insomnia Continue Lexapro 5 mg which patient was on before and says was helpful Continue BuSpar 10 mg t.i.d. which patient was on before and says was helpful Continue Abilify 2 mg daily 06/21/23: Metronidazole 500 mg bid x 7 days. 06/24/23: Continue current regime and plan of care. 06/25/23: Increase Wellbutrin XL to 300 mg daily Increase Lexapro to 10 mg daily 06/26/23: no changes today 06/27/23: add PRN zofran, consider decreasing Wellbutrin if nausea persists Reason for continued inpatient stay Substantial Risk for: rapid decompensation Time Spent With Patient Time: Total time managing care of this patient today ____ minutes.
[2023-06-27] MEDS: Dry Mouth Spray 60 ML SPRAY 1 SPRAY MUCOUS MEM ×2 (11:58→14:31)
[2023-06-27] MEDS: Baclofen 10 MG TABLET PO (16:29)
[2023-06-27 18:00] VITALS: BP 104/58; PULSE 76; RESP 16; TEMP 36.4; O2SAT 96
[2023-06-27] MEDS: Sodium Phosphate,Mono-Dibasic 133 ML ENEMA PR (18:27)
[2023-06-27] MEDS: Melatonin 3 MG TABLET 6 MG PO (19:55)
[2023-06-27] MEDS: diphenhydrAMINE HCL 25 MG CAPSULE 50 MG PO (19:55)
[2023-06-27] MEDS: ARIPiprazole 2 MG TABLET PO (19:56)
[2023-06-28] MEDS: metroNIDAZOLE 500 MG TABLET PO ×2 (06:31→18:05)
[2023-06-28 08:20] VITALS: BP 115/66; PULSE 66; RESP 18; TEMP 37.5; O2SAT 97
[2023-06-28] MEDS: QUEtiapine Fumarate 100 MG TABLET PO ×4 (09:40→21:49)
[2023-06-28] MEDS: Escitalopram Oxalate 10 MG TABLET PO (09:40)
[2023-06-28] MEDS: Multivitamin TABLET 1 TAB PO (09:40)
[2023-06-28] MEDS: busPIRone HCl 10 MG TABLET PO ×3 (09:40→20:16)
[2023-06-28] MEDS: Gabapentin 400 MG CAPSULE 800 MG PO ×3 (09:40→20:16)
[2023-06-28] MEDS: Baclofen 10 MG TABLET PO ×2 (09:40→18:08)
--- NOTE | 2023-06-28 09:40 | P.PNPSI_ITS ---
Subjective Subjective Date of Service: 06/28/23 Reason For Visit: recurrent major depression; opiate/ cocain use d/o Subjective Notes: Conditional Voluntary Healthcare Proxy: No Guardianship: No Medical Problems Affecting Mental Status: No Interim History: Reports constipation, sore throat. Discussed med refusal over the weekend. Pt has been taking medications on an empty stomach-education provided. She asked to proceed with her increases for trials. Medication Compliance: Intermittent Side effects from medications: Yes (nausea-taking medications on an empty stomach) Attending Groups: Intermittent Review of Systems Acute medical concerns: No constipation sore throat Medical Review of Systems: unchanged Mental Status Exam Mental Status Exam Patient Appearance: Appropriate Patient Orientation: Person, Place, Time and Situation Level of Consciousness: Alert Patient Behavior: Talkative, Cooperative, Anxious and Good Eye Contact Mood Description: Anxious Affect Description: Flat Patient Cognition Impaired: No Ability to Follow Directions: Good Speech Pattern: Spontaneous Speech Memory Description: Intact Hallucinations: None Delusions: Not Present Thought Process: Intact and Distracted Thought Content: positive for Intact and positive for Perseveration Depressive Symptoms: Thoughts of /Suicide (denies) Judgement: Fair Diagnostics Vital Signs (24Hr): Vital Signs - 24 hr 06/27/23 18:00 Temperature 97.6 F Pulse Rate 76 Respiratory Rate 16 Blood Pressure 104/58 L Pulse Oximetry 96 Oxygen Delivery Method Room Air BMI result Body Mass Index 26.6 Labs 06/11/23 19:41 06/16/23 08:10 Imaging Radiology Impressions: ITS Impressions Knee X-Ray 06/11/23 15:53 IMPRESSION: 1. No acute findings. 2. Medullary femoral diaphyseal bone infarct. Cervical Spine CT 06/11/23 16:34 IMPRESSION: 1. No evidence of acute intracranial hemorrhage or edematous territorial infarction. 2. No evidence of acute fracture or traumatic subluxation of the cervical spine. 3. No evidence of acute fracture of the maxillofacial bones. 4. Small left parietal scalp hematoma. No associated osseous calvarial abnormalities. 5. Moderate maxillary odontogenic disease. Face CT 06/11/23 16:34 IMPRESSION: 1. No evidence of acute intracranial hemorrhage or edematous territorial infarction. 2. No evidence of acute fracture or traumatic subluxation of the cervical spine. 3. No evidence of acute fracture of the maxillofacial bones. 4. Small left parietal scalp hematoma. No associated osseous calvarial abnormalities. 5. Moderate maxillary odontogenic disease. Head CT 06/11/23 16:34 IMPRESSION: 1. No evidence of acute intracranial hemorrhage or edematous territorial infarction. 2. No evidence of acute fracture or traumatic subluxation of the cervical spine. 3. No evidence of acute fracture of the maxillofacial bones. 4. Small left parietal scalp hematoma. No associated osseous calvarial abnormalities. 5. Moderate maxillary odontogenic disease. Medications Medications Current Medications Al Hydroxide/Mg Hydroxide (Magnesium Hydrox/Alum Hydrox 30 Ml Oral.Susp) 30 ml PO Q6H PRN PRN Reason: Heartburn/Nausea Aripiprazole (Aripiprazole 2 Mg Tablet) 2 mg PO BEDTIME [facility] Last Admin: 06/27/23 19:56 Dose: 2 mg Baclofen (Baclofen 10 Mg Tablet) 10 mg PO BID PRN PRN Reason: muscle aches Last Admin: 06/27/23 16:29 Dose: 10 mg Bupropion HCl (Bupropion Hcl Xl 300 Mg Tab.Er.24h) 300 mg PO DAILY [facility] Last Admin: 06/27/23 09:01 Dose: Not Given Buspirone HCl (Buspirone Hcl 10 Mg Tablet) 10 mg PO TID [facility] Last Admin: 06/27/23 19:55 Dose: 10 mg Capsaicin (Capsaicin 0.025% Cream 60 Gm Tube) 1 appl TOPICAL TID PRN; Protocol PRN Reason: Pain, Mild (Pain Scale 1-3) Last Admin: 06/26/23 12:11 Dose: 1 appl Clonidine HCl (Clonidine Hcl 0.1 Mg Tablet) 0.1 mg PO BEDTIME [facility]; Protocol Last Admin: 06/27/23 19:54 Dose: 0.1 mg Clonidine HCl (Clonidine Hcl 0.1 Mg Tablet) 0.1 mg PO Q6H PRN; Protocol PRN Reason: tachycardia/Anxiety Last Admin: 06/27/23 10:08 Dose: 0.1 mg Diphenhydramine HCl (Diphenhydramine Hcl 25 Mg Capsule) 50 mg PO BEDTIME [facility] Last Admin: 06/27/23 19:55 Dose: 50 mg Escitalopram Oxalate (Escitalopram Oxalate 10 Mg Tablet) 10 mg PO DAILY [facility] Last Admin: 06/27/23 08:46 Dose: 10 mg Gabapentin (Gabapentin 400 Mg Capsule) 800 mg PO TID [facility] Last Admin: 06/27/23 19:55 Dose: 800 mg Hydroxyzine HCl (Hydroxyzine Hcl 50 Mg Tablet) 50 mg PO TID PRN PRN Reason: Anxiety Last Admin: 06/27/23 16:35 Dose: 50 mg Lidocaine (Lidocaine 4 % Patch Adh..Patch) 1 patch TRANSDERMA DAILY [facility]; Protocol Last Admin: 06/27/23 10:05 Dose: 1 patch Lidocaine (Lidocaine 4 % Patch Adh..Patch) 1 patch TRANSDERMA DAILY [facility]; Protocol Last Admin: 06/27/23 10:07 Dose: 1 patch Magnesium Hydroxide (Milk Of Magnesia 30 Ml Oral.Susp) 30 ml PO DAILY PRN PRN Reason: Constipation Melatonin (Melatonin 3 Mg Tablet) 6 mg PO BEDTIME [facility] Last Admin: 06/27/23 19:55 Dose: 6 mg Methadone HCl (Methadone Hcl 20 Mg/2 Ml Oral.Conc) 60 mg PO DAILY [facility] Last Admin: 06/27/23 08:46 Dose: 60 mg Metronidazole (Metronidazole 500 Mg Tablet) 500 mg PO Q12H [facility] Stop: 06/29/23 21:00 Last Admin: 06/28/23 06:31 Dose: 500 mg Multivitamins/Vitamin C (Multivitamin Tablet) 1 tab PO DAILY [facility] Last Admin: 06/27/23 08:46 Dose: 1 tab Nicotine (Nicotine 21 Mg Patch.Td24) 21 mg TRANSDERMA DAILY [facility] Last Admin: 06/27/23 10:04 Dose: 21 mg Nicotine Polacrilex (Nicotine Polacrilex 2 Mg Gum) 2 mg BUCCAL Q2H PRN PRN Reason: Nicotine Cravings Last Admin: 06/27/23 16:30 Dose: 2 mg Bio Oil Skincare Oil 1 each TOPICAL BID PRN PRN Reason: facial/nasal scars Last Admin: 06/27/23 08:46 Dose: 1 each Olanzapine (Olanzapine 5 Mg Tablet) 5 mg PO BID PRN PRN Reason: agitation, anxiety Last Admin: 06/25/23 10:53 Dose: 5 mg Ondansetron HCl (Ondansetron Odt 4 Mg Tab.Rapdis) 4 mg TRANSLINGU Q6H PRN PRN Reason: Nausea Last Admin: 06/23/23 19:02 Dose: 4 mg Ondansetron HCl (Ondansetron Odt 4 Mg Tab.Rapdis) 4 mg TRANSLINGU Q6H PRN PRN Reason: Nausea and Vomiting Quetiapine Fumarate (Quetiapine Fumarate 100 Mg Tablet) 100 mg PO BEDTIME [facility] Last Admin: 06/27/23 19:57 Dose: 100 mg Quetiapine Fumarate (Quetiapine Fumarate 100 Mg Tablet) 100 mg PO TID [facility] Last Admin: 06/27/23 22:51 Dose: Not Given Saliva Substitute (Dry Mouth [place] 60 Ml [place]) 1 spray MUCOUS MEM Q2H PRN PRN Reason: Dry Mouth Last Admin: 06/27/23 14:31 Dose: 1 spray Sodium Biphosphate/Sodium Phosphate (Sodium Phosphate,[place]-Dibasic 133 Ml Enema) 133 ml [place] ONCE PRN PRN Reason: Constipation Last Admin: 06/27/23 18:27 Dose: 133 ml Allergies Allergies Allergy/AdvReac Type Severity Reaction Status Date / Time Penicillins [PENICILLINS] Allergy Severe ANAPHYLAXIS Verified 06/11/23 14:46 soap [SOAP] Allergy Intermediate ITCHING Verified 06/11/23 14:46 aspirin [ASA] Allergy Unknown ANAPHYLAXIS Verified 06/11/23 14:46 cat dander [cats] Allergy Unknown moderately Verified 06/11/23 14:46 severe latex [LATEX] Allergy Unknown ANAPHYLAXIS Verified 06/11/23 14:46 tramadol [TRAMADOL] Allergy Unknown HIVES, Rash Verified 06/11/23 14:46 acetaminophen [From Tylenol] Allergy Hives Verified 06/11/23 14:46 squid Allergy Unknown Verified 06/18/23 17:56 trazodone AdvReac Severe restless Verified 06/15/23 10:45 legs Assessment & Plan Assessment & Plan (1) MDD (major depressive disorder), recurrent episode, moderate: Status: Acute Code(s): F33.1 - Major depressive disorder, recurrent, moderate (2) Opioid abuse: Status: Acute Code(s): F11.10 - Opioid abuse, uncomplicated (3) Polysubstance use disorder: Status: Acute Code(s): F19.90 - Other psychoactive substance use, unspecified, uncomplicated Plan 32 yo female, hx of major depression, opiate and polysubstance use disorder, s/p relapse,fall. Recent detox where all of her psychotropics were stopped. 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 Plan: Increase Methadone to 35 mg today. 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 06/19 Patient reports that she remains quite depressed and very anxious. Wants help changing medications to deal with anxiety. Patient said that when she was last hospitalized her medications were different and she felt that she was doing better. Communications Assistant reviewed history and patient would like to get back on Lexapro and BuSpar. She said she used to be on Ambien at nighttime however senior underwriter discussed that this is unlikely the best option and she instead agrees to increase Seroquel at bedtime and during the day. -will hold off increasing Wellbutrin further since patient is complaining of trouble sleeping 1 ?continue?current?medication?regimen?other?than?having?added?extra?lidocaine ?patch continue Seroquel to 50 mg b.i.d 0900, 1400. (up from 25 mg b.i.d.) Continue?bedtime Seroquel to 100 mg q.h.s. for continued insomnia Added clonidine 0.1 mg q.h.s. for insomnia Continue Lexapro 5 mg which patient was on before and says was helpful Continue BuSpar 10 mg t.i.d. which patient was on before and says was helpful Continue Abilify 2 mg daily 06/21/23: Metronidazole 500 mg bid x 7 days. 06/24/23: Continue current regime and plan of care. 06/25/23: Increase Wellbutrin XL to 300 mg daily Increase Lexapro to 10 mg daily 06/26/23: no changes today 06/27/23: add PRN zofran, consider decreasing Wellbutrin if nausea persists 06/28/23 : Dulcolax 10 mg daily prn constipation Colace 100 mg bid Miralax 17 gm daily Senokot 17.2 mg hs Throat culture, COVID testing,-mucinex, throat spray, drops prn Education provided regarding not taking medications on an empty stomach Patient educated on: medication risk/benefits and therapeutic strategies Informed Consent: understands Reason for continued inpatient stay Substantial Risk for: rapid decompensation Time Spent With Patient Time: Total time managing care of this patient today ____ minutes.
[2023-06-28] MEDS: methADONE HCl 20 MG/2 ML ORAL.CONC 60 MG PO (09:42)
[2023-06-28 12:30] VITALS: BP 93/68; PULSE 87; RESP 18
[2023-06-28] MEDS: cloNIDine HCL 0.1 MG TABLET PO ×2 (12:32→20:16)
[2023-06-28] MEDS: Throat Lozenge, Medicated LOZENGE 1 LOZENGE MUCOUS MEM ×2 (12:33→16:09)
[2023-06-28] MEDS: Nicotine 21 MG PATCH.TD24 TRANSDERMA (12:33)
[2023-06-28] MEDS: hydrOXYzine HCL 50 MG TABLET PO ×2 (12:33→16:05)
[2023-06-28] MEDS: Lidocaine 4 % Patch ADH..PATCH 1 PATCH TRANSDERMA ×2 (12:34)
[2023-06-28] MEDS: Nicotine Polacrilex 2 MG GUM BUCCAL (16:05)
[2023-06-28] MEDS: Dry Mouth Spray 60 ML SPRAY 1 SPRAY MUCOUS MEM (16:09)
[2023-06-28 16:45] VITALS: BP 96/53; PULSE 70; RESP 16; TEMP 36.3; O2SAT 96
[2023-06-28] MEDS: diphenhydrAMINE HCL 25 MG CAPSULE 50 MG PO (20:15)
[2023-06-28] MEDS: Sennosides 8.6 MG TABLET 17.2 MG PO (20:15)
[2023-06-28] MEDS: guaiFENesin LA 600 MG TAB.ER.12H PO (20:15)
[2023-06-28] MEDS: Docusate Sodium 100 MG CAPSULE PO (20:16)
[2023-06-28] MEDS: ARIPiprazole 2 MG TABLET PO (20:16)
[2023-06-28] MEDS: Melatonin 3 MG TABLET 6 MG PO (20:16)
[2023-06-29] MEDS: metroNIDAZOLE 500 MG TABLET PO ×2 (05:41→18:05)
[2023-06-29 08:00] VITALS: BP 99/60; PULSE 68; RESP 16; TEMP 37.2; O2SAT 96
[2023-06-29] MEDS: Baclofen 10 MG TABLET PO (09:02)
[2023-06-29] MEDS: Docusate Sodium 100 MG CAPSULE PO ×2 (09:02→20:01)
[2023-06-29] MEDS: polyethylene glycoL 3350 17 GM POWD.PACK PO (09:02)
[2023-06-29] MEDS: methADONE HCl 20 MG/2 ML ORAL.CONC 60 MG PO (09:02)
[2023-06-29] MEDS: QUEtiapine Fumarate 100 MG TABLET PO ×5 (09:03→22:33)
[2023-06-29] MEDS: buPROPion HCl XL 300 MG TAB.ER.24H PO (09:03)
[2023-06-29] MEDS: Escitalopram Oxalate 10 MG TABLET PO (09:03)
[2023-06-29] MEDS: busPIRone HCl 10 MG TABLET PO ×3 (09:03→20:01)
[2023-06-29] MEDS: Gabapentin 400 MG CAPSULE 800 MG PO ×3 (09:03→20:01)
[2023-06-29] MEDS: Multivitamin TABLET 1 TAB PO (09:03)
[2023-06-29] MEDS: Nicotine 21 MG PATCH.TD24 TRANSDERMA (11:37)
[2023-06-29] MEDS: Lidocaine 4 % Patch ADH..PATCH 1 PATCH TRANSDERMA ×2 (11:37)
[2023-06-29] MEDS: hydrOXYzine HCL 50 MG TABLET PO ×2 (11:43→18:07)
[2023-06-29] MEDS: bisacodyL 5 MG TABLET.DR 10 MG PO (11:43)
--- NOTE | 2023-06-29 16:26 | HO.PSYCHPN ---
Subjective Subjective Date of Service: 06/29/23 Reason For Visit: recurrent major depression; opiate/ cocain use d/o Subjective Notes: Conditional Voluntary Healthcare Proxy: No Guardianship: No Medical Problems Affecting Mental Status: No Interim History: Pt discussed concerns about having OCD today. She reports organizing compulsions and rituals which need to be completed daily. Discussed medicine options, will provide literature for pt along with grounding techniques which pt is interested in. Reports these type of symptoms have been occurring for years and she is wondering if they are part of the problem. Team report concern that pt is over-involved with a former patient/room-mate who has been coming to visit daily. Team expresses concern about what messages and information pt is being given by her peer and if this is possibly destructive to her plan of care. Medication Compliance: Yes Side effects from medications: No Attending Groups: Intermittent Review of Systems Acute medical concerns: No Medical Review of Systems: unchanged Mental Status Exam Mental Status Exam Patient Appearance: Appropriate Patient Orientation: Person, Place, Time and Situation Level of Consciousness: Alert Patient Behavior: Talkative, Cooperative, Anxious and Good Eye Contact Mood Description: Anxious Affect Description: Flat Patient Cognition Impaired: No Ability to Follow Directions: Good Speech Pattern: Spontaneous Speech Memory Description: Intact Hallucinations: None Delusions: Not Present Thought Process: Intact and Distracted Thought Content: positive for Intact and positive for Perseveration Depressive Symptoms: Thoughts of /Suicide (denies) Judgement: Fair Diagnostics Vital Signs (24Hr): Vital Signs - 24 hr 06/28/23 16:45 06/29/23 08:00 Temperature 97.4 F 98.9 F Pulse Rate 70 68 Respiratory Rate 16 16 Blood Pressure 96/53 L 99/60 Pulse Oximetry 96 96 Oxygen Delivery Method Room Air Room Air BMI result Body Mass Index 26.6 Labs 06/11/23 19:41 06/16/23 08:10 Imaging Radiology Impressions: ITS Impressions Knee X-Ray 06/11/23 15:53 IMPRESSION: 1. No acute findings. 2. Medullary femoral diaphyseal bone infarct. Cervical Spine CT 06/11/23 16:34 IMPRESSION: 1. No evidence of acute intracranial hemorrhage or edematous territorial infarction. 2. No evidence of acute fracture or traumatic subluxation of the cervical spine. 3. No evidence of acute fracture of the maxillofacial bones. 4. Small left parietal scalp hematoma. No associated osseous calvarial abnormalities. 5. Moderate maxillary odontogenic disease. Face CT 06/11/23 16:34 IMPRESSION: 1. No evidence of acute intracranial hemorrhage or edematous territorial infarction. 2. No evidence of acute fracture or traumatic subluxation of the cervical spine. 3. No evidence of acute fracture of the maxillofacial bones. 4. Small left parietal scalp hematoma. No associated osseous calvarial abnormalities. 5. Moderate maxillary odontogenic disease. Head CT 06/11/23 16:34 IMPRESSION: 1. No evidence of acute intracranial hemorrhage or edematous territorial infarction. 2. No evidence of acute fracture or traumatic subluxation of the cervical spine. 3. No evidence of acute fracture of the maxillofacial bones. 4. Small left parietal scalp hematoma. No associated osseous calvarial abnormalities. 5. Moderate maxillary odontogenic disease. Medications Medications Current Medications Al Hydroxide/Mg Hydroxide (Magnesium Hydrox/Alum Hydrox 30 Ml Oral.Susp) 30 ml PO Q6H PRN PRN Reason: Heartburn/Nausea Aripiprazole (Aripiprazole 2 Mg Tablet) 2 mg PO BEDTIME [facility] Last Admin: 06/28/23 20:16 Dose: 2 mg Baclofen (Baclofen 10 Mg Tablet) 10 mg PO BID PRN PRN Reason: muscle aches Last Admin: 06/29/23 09:02 Dose: 10 mg Benzocaine (Throat Lozenge, Medicated Lozenge) 1 lozenge MUCOUS MEM Q2H PRN PRN Reason: Sore Throat Last Admin: 06/28/23 16:09 Dose: 1 lozenge Bisacodyl (Bisacodyl 5 Mg Tablet.Dr) 10 mg PO DAILY PRN PRN Reason: Constipation Last Admin: 06/29/23 11:43 Dose: 10 mg Bupropion HCl (Bupropion Hcl Xl 300 Mg Tab.Er.24h) 300 mg PO DAILY [facility] Last Admin: 06/29/23 09:03 Dose: 300 mg Buspirone HCl (Buspirone Hcl 10 Mg Tablet) 10 mg PO TID [facility] Last Admin: 06/29/23 14:20 Dose: 10 mg Capsaicin (Capsaicin 0.025% Cream 60 Gm Tube) 1 appl TOPICAL TID PRN; Protocol PRN Reason: Pain, Mild (Pain Scale 1-3) Last Admin: 06/26/23 12:11 Dose: 1 appl Clonidine HCl (Clonidine Hcl 0.1 Mg Tablet) 0.1 mg PO BEDTIME [facility]; Protocol Last Admin: 06/28/23 20:16 Dose: 0.1 mg Clonidine HCl (Clonidine Hcl 0.1 Mg Tablet) 0.1 mg PO Q6H PRN; Protocol PRN Reason: tachycardia/Anxiety Last Admin: 06/28/23 12:32 Dose: 0.1 mg Diphenhydramine HCl (Diphenhydramine Hcl 25 Mg Capsule) 50 mg PO BEDTIME [facility] Last Admin: 06/28/23 20:15 Dose: 50 mg Docusate Sodium (Docusate Sodium 100 Mg Capsule) 100 mg PO BID [facility] Last Admin: 06/29/23 09:02 Dose: 100 mg Escitalopram Oxalate (Escitalopram Oxalate 10 Mg Tablet) 10 mg PO DAILY [facility] Last Admin: 06/29/23 09:03 Dose: 10 mg Gabapentin (Gabapentin 400 Mg Capsule) 800 mg PO TID [facility] Last Admin: 06/29/23 14:20 Dose: 800 mg Guaifenesin (Guaifenesin [place] 600 Mg Tab.Er.12h) 600 mg PO BID PRN PRN Reason: Congestion Last Admin: 06/28/23 20:15 Dose: 600 mg Hydroxyzine HCl (Hydroxyzine Hcl 50 Mg Tablet) 50 mg PO TID PRN PRN Reason: Anxiety Last Admin: 06/29/23 11:43 Dose: 50 mg Lidocaine (Lidocaine 4 % Patch Adh..Patch) 1 patch TRANSDERMA DAILY [facility]; Protocol Last Admin: 06/29/23 11:37 Dose: 1 patch Lidocaine (Lidocaine 4 % Patch Adh..Patch) 1 patch TRANSDERMA DAILY [facility]; Protocol Last Admin: 06/29/23 11:37 Dose: 1 patch Magnesium Hydroxide (Milk Of Magnesia 30 Ml Oral.Susp) 30 ml PO DAILY PRN PRN Reason: Constipation Melatonin (Melatonin 3 Mg Tablet) 6 mg PO BEDTIME [facility] Last Admin: 06/28/23 20:16 Dose: 6 mg Methadone HCl (Methadone Hcl 20 Mg/2 Ml Oral.Conc) 60 mg PO DAILY [facility] Last Admin: 06/29/23 09:02 Dose: 60 mg Metronidazole (Metronidazole 500 Mg Tablet) 500 mg PO Q12H [facility] Stop: 06/29/23 21:00 Last Admin: 06/29/23 05:41 Dose: 500 mg Multi-Ingred Medicated Throat [place] (Throat [place], Medicated 177 Ml Bottle) 1 spray MUCOUS MEM Q2H PRN PRN Reason: Sore Throat Multivitamins/Vitamin C (Multivitamin Tablet) 1 tab PO DAILY [facility] Last Admin: 06/29/23 09:03 Dose: 1 tab Nicotine (Nicotine 21 Mg Patch.Td24) 21 mg TRANSDERMA DAILY [facility] Last Admin: 06/29/23 11:37 Dose: 21 mg Nicotine Polacrilex (Nicotine Polacrilex 2 Mg Gum) 2 mg BUCCAL Q2H PRN PRN Reason: Nicotine Cravings Last Admin: 06/28/23 16:05 Dose: 2 mg Bio Oil Skincare Oil 1 each TOPICAL BID PRN PRN Reason: facial/nasal scars Last Admin: 06/27/23 08:46 Dose: 1 each Olanzapine (Olanzapine 5 Mg Tablet) 5 mg PO BID PRN PRN Reason: agitation, anxiety Last Admin: 06/25/23 10:53 Dose: 5 mg Ondansetron HCl (Ondansetron Odt 4 Mg Tab.Rapdis) 4 mg TRANSLINGU Q6H PRN PRN Reason: Nausea Last Admin: 06/23/23 19:02 Dose: 4 mg Ondansetron HCl (Ondansetron Odt 4 Mg Tab.Rapdis) 4 mg TRANSLINGU Q6H PRN PRN Reason: Nausea and Vomiting Polyethylene Glycol (Polyethylene Glycol 3350 17 Gm Powd.Pack) 17 gm PO DAILY [facility] Last Admin: 06/29/23 09:02 Dose: 17 gm Quetiapine Fumarate (Quetiapine Fumarate 100 Mg Tablet) 100 mg PO BEDTIME [facility] Last Admin: 06/28/23 20:15 Dose: 100 mg Quetiapine Fumarate (Quetiapine Fumarate 100 Mg Tablet) 100 mg PO TID [facility] Last Admin: 06/29/23 14:20 Dose: 100 mg Saliva Substitute (Dry Mouth [place] 60 Ml [place]) 1 spray MUCOUS MEM Q2H PRN PRN Reason: Dry Mouth Last Admin: 06/28/23 16:09 Dose: 1 spray Senna (Sennosides 8.6 Mg Tablet) 17.2 mg PO BEDTIME [facility] Last Admin: 06/28/23 20:15 Dose: 17.2 mg Sodium Biphosphate/Sodium Phosphate (Sodium Phosphate,[place]-Dibasic 133 Ml Enema) 133 ml [place] ONCE PRN PRN Reason: Constipation Last Admin: 06/27/23 18:27 Dose: 133 ml Allergies Allergies Allergy/AdvReac Type Severity Reaction Status Date / Time Penicillins [PENICILLINS] Allergy Severe ANAPHYLAXIS Verified 06/11/23 14:46 soap [SOAP] Allergy Intermediate ITCHING Verified 06/11/23 14:46 aspirin [ASA] Allergy Unknown ANAPHYLAXIS Verified 06/11/23 14:46 cat dander [cats] Allergy Unknown moderately Verified 06/11/23 14:46 severe latex [LATEX] Allergy Unknown ANAPHYLAXIS Verified 06/11/23 14:46 tramadol [TRAMADOL] Allergy Unknown HIVES, Rash Verified 06/11/23 14:46 acetaminophen [From Tylenol] Allergy Hives Verified 06/11/23 14:46 squid Allergy Unknown Verified 06/18/23 17:56 trazodone AdvReac Severe restless Verified 06/15/23 10:45 legs Assessment & Plan Assessment & Plan (1) MDD (major depressive disorder), recurrent episode, moderate: Status: Acute Code(s): F33.1 - Major depressive disorder, recurrent, moderate (2) Opioid abuse: Status: Acute Code(s): F11.10 - Opioid abuse, uncomplicated (3) Polysubstance use disorder: Status: Acute Code(s): F19.90 - Other psychoactive substance use, unspecified, uncomplicated Plan 32 yo female, hx of major depression, opiate and polysubstance use disorder, s/p relapse,fall. Recent detox where all of her psychotropics were stopped. 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 Plan: Increase Methadone to 35 mg today. 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 06/19 Patient reports that she remains quite depressed and very anxious. Wants help changing medications to deal with anxiety. Patient said that when she was last hospitalized her medications were different and she felt that she was doing better. Yeast Culture Operator reviewed history and patient would like to get back on Lexapro and BuSpar. She said she used to be on Ambien at nighttime however life underwriter discussed that this is unlikely the best option and she instead agrees to increase Seroquel at bedtime and during the day. -will hold off increasing Wellbutrin further since patient is complaining of trouble sleeping 06/20?continue?current?medication?regimen?other?than?having?added?extra?lidocaine?patch continue Seroquel to 50 mg b.i.d 0900, 1400. (up from 25 mg b.i.d.) Continue?bedtime Seroquel to 100 mg q.h.s. for continued insomnia Added clonidine 0.1 mg q.h.s. for insomnia Continue Lexapro 5 mg which patient was on before and says was helpful Continue BuSpar 10 mg t.i.d. which patient was on before and says was helpful Continue Abilify 2 mg daily 06/21/23: Metronidazole 500 mg bid x 7 days. 06/24/23: Continue current regime and plan of care. 06/25/23: Increase Wellbutrin XL to 300 mg daily Increase Lexapro to 10 mg daily 06/26/23: no changes today 06/27/23: add PRN zofran, consider decreasing Wellbutrin if nausea persists 06/29/23: Continue current plan and regime. OCD education Informed Consent: understands Reason for continued inpatient stay Substantial Risk for: rapid decompensation Time Spent With Patient Time: Total time managing care of this patient today ____ minutes.
[2023-06-29] MEDS: cloNIDine HCL 0.1 MG TABLET PO ×2 (16:45→19:58)
[2023-06-29 18:00] VITALS: BP 112/64; PULSE 72; RESP 17; TEMP 36.7; O2SAT 98
[2023-06-29] MEDS: Melatonin 3 MG TABLET 6 MG PO (19:59)
[2023-06-29] MEDS: Sennosides 8.6 MG TABLET 17.2 MG PO (19:59)
[2023-06-29] MEDS: diphenhydrAMINE HCL 25 MG CAPSULE 50 MG PO (20:00)
[2023-06-29] MEDS: ARIPiprazole 2 MG TABLET PO (20:00)
[2023-06-29] MEDS: Nicotine Polacrilex 2 MG GUM BUCCAL (20:04)
[2023-06-30] MEDS: methADONE HCl 20 MG/2 ML ORAL.CONC 60 MG PO (08:11)
[2023-06-30] MEDS: Gabapentin 400 MG CAPSULE 800 MG PO ×3 (08:12→19:49)
[2023-06-30] MEDS: buPROPion HCl XL 300 MG TAB.ER.24H PO (08:12)
[2023-06-30] MEDS: Docusate Sodium 100 MG CAPSULE PO ×2 (08:12→19:50)
[2023-06-30] MEDS: QUEtiapine Fumarate 100 MG TABLET PO ×4 (08:12→19:51)
[2023-06-30] MEDS: Escitalopram Oxalate 10 MG TABLET PO (08:12)
[2023-06-30] MEDS: Multivitamin TABLET 1 TAB PO (08:12)
[2023-06-30] MEDS: busPIRone HCl 10 MG TABLET PO ×3 (08:12→19:50)
[2023-06-30] MEDS: polyethylene glycoL 3350 17 GM POWD.PACK PO (08:12)
[2023-06-30 08:25] VITALS: BP 105/58; PULSE 73; RESP 73; TEMP 36.6; O2SAT 94
[2023-06-30] MEDS: Nicotine Polacrilex 2 MG GUM BUCCAL ×3 (11:11→18:17)
[2023-06-30] MEDS: Nicotine 21 MG PATCH.TD24 TRANSDERMA (11:13)
[2023-06-30] MEDS: Lidocaine 4 % Patch ADH..PATCH 1 PATCH TRANSDERMA ×2 (11:13)
[2023-06-30 13:09] VITALS: BP 109/73; PULSE 83
[2023-06-30] MEDS: Dry Mouth Spray 60 ML SPRAY 1 SPRAY MUCOUS MEM (13:10)
[2023-06-30] MEDS: cloNIDine HCL 0.1 MG TABLET PO ×2 (13:10→19:50)
[2023-06-30] MEDS: OLANZapine 5 MG TABLET PO (16:08)
--- NOTE | 2023-06-30 16:21 | HO.PSYCHPN ---
Subjective Subjective Date of Service: 06/30/23 Reason For Visit: recurrent major depression; opiate/ cocain use d/o Subjective Notes: Conditional Voluntary Healthcare Proxy: No Guardianship: No Medical Problems Affecting Mental Status: No Interim History: Review of [facility] literature of OCD. Discussed interventions. Pt is struggling with the wait for a CSS bed and struggles with peers-reports room-mate follows her everywhere due to confusion. Discussed being in contact with leadership coach from [facility] and having some more CSS options from their team. Medication Compliance: Yes Side effects from medications: No Attending Groups: Intermittent Review of Systems Acute medical concerns: No Medical Review of Systems: unchanged Mental Status Exam Mental Status Exam Patient Appearance: Appropriate Patient Orientation: Person, Place, Time and Situation Level of Consciousness: Alert Patient Behavior: Talkative, Cooperative, Anxious and Good Eye Contact Mood Description: Anxious Affect Description: Flat Patient Cognition Impaired: No Ability to Follow Directions: Good Speech Pattern: Spontaneous Speech Memory Description: Intact Hallucinations: None Delusions: Not Present Thought Process: Intact and Distracted Thought Content: positive for Intact and positive for Perseveration Depressive Symptoms: Thoughts of /Suicide (denies) Judgement: Fair Diagnostics Vital Signs (24Hr): Vital Signs - 24 hr 06/29/23 18:00 06/30/23 08:25 06/30/23 13:09 Temperature 98.0 F 98 F Pulse Rate 72 73 83 Respiratory Rate 17 73 H Blood Pressure 112/64 105/58 L 109/73 Pulse Oximetry 98 94 Oxygen Delivery Method Room Air BMI result Body Mass Index 26.6 Labs 06/11/23 19:41 06/16/23 08:10 Imaging Radiology Impressions: ITS Impressions Knee X-Ray 06/11/23 15:53 IMPRESSION: 1. No acute findings. 2. Medullary femoral diaphyseal bone infarct. Cervical Spine CT 06/11/23 16:34 IMPRESSION: 1. No evidence of acute intracranial hemorrhage or edematous territorial infarction. 2. No evidence of acute fracture or traumatic subluxation of the cervical spine. 3. No evidence of acute fracture of the maxillofacial bones. 4. Small left parietal scalp hematoma. No associated osseous calvarial abnormalities. 5. Moderate maxillary odontogenic disease. Face CT 06/11/23 16:34 IMPRESSION: 1. No evidence of acute intracranial hemorrhage or edematous territorial infarction. 2. No evidence of acute fracture or traumatic subluxation of the cervical spine. 3. No evidence of acute fracture of the maxillofacial bones. 4. Small left parietal scalp hematoma. No associated osseous calvarial abnormalities. 5. Moderate maxillary odontogenic disease. Head CT 06/11/23 16:34 IMPRESSION: 1. No evidence of acute intracranial hemorrhage or edematous territorial infarction. 2. No evidence of acute fracture or traumatic subluxation of the cervical spine. 3. No evidence of acute fracture of the maxillofacial bones. 4. Small left parietal scalp hematoma. No associated osseous calvarial abnormalities. 5. Moderate maxillary odontogenic disease. Medications Medications Current Medications Al Hydroxide/Mg Hydroxide (Magnesium Hydrox/Alum Hydrox 30 Ml Oral.Susp) 30 ml PO Q6H PRN PRN Reason: Heartburn/Nausea Aripiprazole (Aripiprazole 2 Mg Tablet) 2 mg PO BEDTIME [facility] Last Admin: 06/29/23 20:00 Dose: 2 mg Baclofen (Baclofen 10 Mg Tablet) 10 mg PO BID PRN PRN Reason: muscle aches Last Admin: 06/29/23 09:02 Dose: 10 mg Benzocaine (Throat Lozenge, Medicated Lozenge) 1 lozenge MUCOUS MEM Q2H PRN PRN Reason: Sore Throat Last Admin: 06/28/23 16:09 Dose: 1 lozenge Bisacodyl (Bisacodyl 5 Mg Tablet.Dr) 10 mg PO DAILY PRN PRN Reason: Constipation Last Admin: 06/29/23 11:43 Dose: 10 mg Bupropion HCl (Bupropion Hcl Xl 300 Mg Tab.Er.24h) 300 mg PO DAILY [facility] Last Admin: 06/30/23 08:12 Dose: 300 mg Buspirone HCl (Buspirone Hcl 10 Mg Tablet) 10 mg PO TID [facility] Last Admin: 06/30/23 14:21 Dose: 10 mg Capsaicin (Capsaicin 0.025% Cream 60 Gm Tube) 1 appl TOPICAL TID PRN; Protocol PRN Reason: Pain, Mild (Pain Scale 1-3) Last Admin: 06/26/23 12:11 Dose: 1 appl Clonidine HCl (Clonidine Hcl 0.1 Mg Tablet) 0.1 mg PO BEDTIME [facility]; Protocol Last Admin: 06/29/23 19:58 Dose: 0.1 mg Clonidine HCl (Clonidine Hcl 0.1 Mg Tablet) 0.1 mg PO Q6H PRN; Protocol PRN Reason: tachycardia/Anxiety Last Admin: 06/30/23 13:10 Dose: 0.1 mg Diphenhydramine HCl (Diphenhydramine Hcl 25 Mg Capsule) 50 mg PO BEDTIME [facility] Last Admin: 06/29/23 20:00 Dose: 50 mg Docusate Sodium (Docusate Sodium 100 Mg Capsule) 100 mg PO BID [facility] Last Admin: 06/30/23 08:12 Dose: 100 mg Escitalopram Oxalate (Escitalopram Oxalate 10 Mg Tablet) 10 mg PO DAILY [facility] Last Admin: 06/30/23 08:12 Dose: 10 mg Gabapentin (Gabapentin 400 Mg Capsule) 800 mg PO TID [facility] Last Admin: 06/30/23 14:21 Dose: 800 mg Guaifenesin (Guaifenesin La 600 Mg Tab.Er.12h) 600 mg PO BID PRN PRN Reason: Congestion Last Admin: 06/28/23 20:15 Dose: 600 mg Hydroxyzine HCl (Hydroxyzine Hcl 50 Mg Tablet) 50 mg PO TID PRN PRN Reason: Anxiety Last Admin: 06/29/23 18:07 Dose: 50 mg Lidocaine (Lidocaine 4 % Patch Adh..Patch) 1 patch TRANSDERMA DAILY [facility]; Protocol Last Admin: 06/30/23 11:13 Dose: 1 patch Lidocaine (Lidocaine 4 % Patch Adh..Patch) 1 patch TRANSDERMA DAILY [facility]; Protocol Last Admin: 06/30/23 11:13 Dose: 1 patch Magnesium Hydroxide (Milk Of Magnesia 30 Ml Oral.Susp) 30 ml PO DAILY PRN PRN Reason: Constipation Melatonin (Melatonin 3 Mg Tablet) 6 mg PO BEDTIME [facility] Last Admin: 06/29/23 19:59 Dose: 6 mg Methadone HCl (Methadone Hcl 20 Mg/2 Ml Oral.Conc) 60 mg PO DAILY [facility] Last Admin: 06/30/23 08:11 Dose: 60 mg Multi-Ingred Medicated Throat [place] (Throat [place], Medicated 177 Ml Bottle) 1 spray MUCOUS MEM Q2H PRN PRN Reason: Sore Throat Multivitamins/Vitamin C (Multivitamin Tablet) 1 tab PO DAILY [facility] Last Admin: 06/30/23 08:12 Dose: 1 tab Nicotine (Nicotine 21 Mg Patch.Td24) 21 mg TRANSDERMA DAILY [facility] Last Admin: 06/30/23 11:13 Dose: 21 mg Nicotine Polacrilex (Nicotine Polacrilex 2 Mg Gum) 2 mg BUCCAL Q2H PRN PRN Reason: Nicotine Cravings Last Admin: 06/30/23 13:11 Dose: 2 mg Bio Oil Skincare Oil 1 each TOPICAL BID PRN PRN Reason: facial/nasal scars Last Admin: 06/27/23 08:46 Dose: 1 each Olanzapine (Olanzapine 5 Mg Tablet) 5 mg PO BID PRN PRN Reason: agitation, anxiety Last Admin: 06/30/23 16:08 Dose: 5 mg Ondansetron HCl (Ondansetron Odt 4 Mg Tab.Rapdis) 4 mg TRANSLINGU Q6H PRN PRN Reason: Nausea Last Admin: 06/23/23 19:02 Dose: 4 mg Ondansetron HCl (Ondansetron Odt 4 Mg Tab.Rapdis) 4 mg TRANSLINGU Q6H PRN PRN Reason: Nausea and Vomiting Polyethylene Glycol (Polyethylene Glycol 3350 17 Gm Powd.Pack) 17 gm PO DAILY [facility] Last Admin: 06/30/23 08:12 Dose: 17 gm Quetiapine Fumarate (Quetiapine Fumarate 100 Mg Tablet) 100 mg PO BEDTIME [facility] Last Admin: 06/29/23 20:05 Dose: 100 mg Quetiapine Fumarate (Quetiapine Fumarate 100 Mg Tablet) 100 mg PO TID [facility] Last Admin: 06/30/23 14:21 Dose: 100 mg Saliva Substitute (Dry Mouth [place] 60 Ml [place]) 1 spray MUCOUS MEM Q2H PRN PRN Reason: Dry Mouth Last Admin: 06/30/23 13:10 Dose: 1 spray Senna (Sennosides 8.6 Mg Tablet) 17.2 mg PO BEDTIME [facility] Last Admin: 06/29/23 19:59 Dose: 17.2 mg Sodium Biphosphate/Sodium Phosphate (Sodium Phosphate,[place]-Dibasic 133 Ml Enema) 133 ml [place] ONCE PRN PRN Reason: Constipation Last Admin: 06/27/23 18:27 Dose: 133 ml Allergies Allergies Allergy/AdvReac Type Severity Reaction Status Date / Time Penicillins [PENICILLINS] Allergy Severe ANAPHYLAXIS Verified 06/11/23 14:46 soap [SOAP] Allergy Intermediate ITCHING Verified 06/11/23 14:46 aspirin [ASA] Allergy Unknown ANAPHYLAXIS Verified 06/11/23 14:46 cat dander [cats] Allergy Unknown moderately Verified 06/11/23 14:46 severe latex [LATEX] Allergy Unknown ANAPHYLAXIS Verified 06/11/23 14:46 tramadol [TRAMADOL] Allergy Unknown HIVES, Rash Verified 06/11/23 14:46 acetaminophen [From Tylenol] Allergy Hives Verified 06/11/23 14:46 squid Allergy Unknown Verified 06/18/23 17:56 trazodone AdvReac Severe restless Verified 06/15/23 10:45 legs Assessment & Plan Assessment & Plan (1) MDD (major depressive disorder), recurrent episode, moderate: Status: Acute Code(s): F33.1 - Major depressive disorder, recurrent, moderate (2) Opioid abuse: Status: Acute Code(s): F11.10 - Opioid abuse, uncomplicated (3) Polysubstance use disorder: Status: Acute Code(s): F19.90 - Other psychoactive substance use, unspecified, uncomplicated Plan 32 yo female, hx of major depression, opiate and polysubstance use disorder, s/p relapse,fall. Recent detox where all of her psychotropics were stopped. 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 Plan: Increase Methadone to 35 mg today. 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 06/19 Patient reports that she remains quite depressed and very anxious. Wants help changing medications to deal with anxiety. Patient said that when she was last hospitalized her medications were different and she felt that she was doing better. Remedial Teacher reviewed history and patient would like to get back on Lexapro and BuSpar. She said she used to be on Ambien at nighttime however proposal manager writer discussed that this is unlikely the best option and she instead agrees to increase Seroquel at bedtime and during the day. -will hold off increasing Wellbutrin further since patient is complaining of trouble sleeping 06/20?continue?current?medication?regimen?other?than?having?added?extra?lidocaine?patch continue Seroquel to 50 mg b.i.d 0900, 1400. (up from 25 mg b.i.d.) Continue?bedtime Seroquel to 100 mg q.h.s. for continued insomnia Added clonidine 0.1 mg q.h.s. for insomnia Continue Lexapro 5 mg which patient was on before and says was helpful Continue BuSpar 10 mg t.i.d. which patient was on before and says was helpful Continue Abilify 2 mg daily 06/21/23: Metronidazole 500 mg bid x 7 days. 06/24/23: Continue current regime and plan of care. 06/25/23: Increase Wellbutrin XL to 300 mg daily Increase Lexapro to 10 mg daily 06/26/23: no changes today 06/27/23: add PRN zofran, consider decreasing Wellbutrin if nausea persists 06/29/23: Continue current plan and regime. OCD education 06/30/23 Increase Lexapro to 20 mg daily Patient educated on: medication risk/benefits and therapeutic strategies Informed Consent: understands Reason for continued inpatient stay Substantial Risk for: rapid decompensation Time Spent With Patient Time: Total time managing care of this patient today ____ minutes.
[2023-06-30] MEDS: Sodium Phosphate,Mono-Dibasic 133 ML ENEMA PR (17:56)
[2023-06-30 18:00] VITALS: BP 115/75; PULSE 84; RESP 18; O2SAT 96
[2023-06-30] MEDS: Melatonin 3 MG TABLET 6 MG PO (19:50)
[2023-06-30] MEDS: diphenhydrAMINE HCL 25 MG CAPSULE 50 MG PO (19:50)
[2023-06-30] MEDS: Sennosides 8.6 MG TABLET 17.2 MG PO (19:50)
[2023-06-30] MEDS: ARIPiprazole 2 MG TABLET PO (19:50)
[2023-07-01 08:00] VITALS: BP 90/61; PULSE 86; RESP 16; TEMP 36.8; O2SAT 96
[2023-07-01] MEDS: buPROPion HCl XL 300 MG TAB.ER.24H PO (08:42)
[2023-07-01] MEDS: Gabapentin 400 MG CAPSULE 800 MG PO ×3 (08:42→19:46)
[2023-07-01] MEDS: QUEtiapine Fumarate 100 MG TABLET PO ×4 (08:42→19:45)
[2023-07-01] MEDS: Multivitamin TABLET 1 TAB PO (08:42)
[2023-07-01] MEDS: Escitalopram Oxalate 20 MG TABLET PO (08:42)
[2023-07-01] MEDS: Docusate Sodium 100 MG CAPSULE PO ×2 (08:43→19:46)
[2023-07-01] MEDS: busPIRone HCl 10 MG TABLET PO ×3 (08:43→19:46)
[2023-07-01] MEDS: methADONE HCl 20 MG/2 ML ORAL.CONC 60 MG PO (08:43)
[2023-07-01] MEDS: polyethylene glycoL 3350 17 GM POWD.PACK PO (09:51)
[2023-07-01] MEDS: Throat Lozenge, Medicated LOZENGE 1 LOZENGE MUCOUS MEM ×2 (09:51→11:58)
[2023-07-01] MEDS: Lidocaine 4 % Patch ADH..PATCH 1 PATCH TRANSDERMA ×2 (09:51)
[2023-07-01] MEDS: Azithromycin 250 MG TABLET 500 MG PO (09:51)
[2023-07-01] MEDS: Nicotine 21 MG PATCH.TD24 TRANSDERMA (09:54)
[2023-07-01 14:12] VITALS: BMI 26.0
[2023-07-01] MEDS: Throat Spray, Medicated 177 ML BOTTLE 1 SPRAY MUCOUS MEM (14:26)
--- NOTE | 2023-07-01 16:14 | HO.PSYCHPN ---
Subjective Subjective Date of Service: 07/01/23 Reason For Visit: recurrent major depression; opiate/ cocain use d/o Subjective Notes: Conditional Voluntary Healthcare Proxy: No Guardianship: No Medical Problems Affecting Mental Status: No Interim History: Team continues to apply for residential treatment resources for pt. No acceptances as yet. Team is considering detention placement for pt to begin 07/02. Throat Culture + strep, antibiotic initiated. Reports depressive sx 8/ anxiety sx 7. Medications reviewed with pt as well. Minimal efficacy per pt report. Discussed with pt remaining on the unit for the weekend if we are not offered a respite option on 07/02. She agrees. Medication Compliance: Yes Side effects from medications: No Attending Groups: Intermittent Review of Systems Acute medical concerns: No Medical Review of Systems: unchanged Review of Systems Reports sore throat Mental Status Exam Mental Status Exam Patient Appearance: Appropriate Patient Orientation: Person, Place, Time and Situation Level of Consciousness: Alert Patient Behavior: Talkative, Cooperative, Anxious and Good Eye Contact Mood Description: Anxious Affect Description: Flat Patient Cognition Impaired: No Ability to Follow Directions: Good Speech Pattern: Spontaneous Speech Memory Description: Intact Hallucinations: None Delusions: Not Present Thought Process: Intact and Distracted Thought Content: positive for Intact and positive for Perseveration Depressive Symptoms: Thoughts of /Suicide (denies) Judgement: Fair Diagnostics Vital Signs (24Hr): Vital Signs - 24 hr 06/30/23 18:00 07/01/23 08:00 Temperature 98.3 F Pulse Rate 84 86 Respiratory Rate 18 16 Blood Pressure 115/75 90/61 Pulse Oximetry 96 96 Oxygen Delivery Method Room Air Room Air BMI result Body Mass Index 26.0 Labs 06/11/23 19:41 06/16/23 08:10 Imaging Radiology Impressions: ITS Impressions Knee X-Ray 06/11/23 15:53 IMPRESSION: 1. No acute findings. 2. Medullary femoral diaphyseal bone infarct. Cervical Spine CT 06/11/23 16:34 IMPRESSION: 1. No evidence of acute intracranial hemorrhage or edematous territorial infarction. 2. No evidence of acute fracture or traumatic subluxation of the cervical spine. 3. No evidence of acute fracture of the maxillofacial bones. 4. Small left parietal scalp hematoma. No associated osseous calvarial abnormalities. 5. Moderate maxillary odontogenic disease. Face CT 06/11/23 16:34 IMPRESSION: 1. No evidence of acute intracranial hemorrhage or edematous territorial infarction. 2. No evidence of acute fracture or traumatic subluxation of the cervical spine. 3. No evidence of acute fracture of the maxillofacial bones. 4. Small left parietal scalp hematoma. No associated osseous calvarial abnormalities. 5. Moderate maxillary odontogenic disease. Head CT 06/11/23 16:34 IMPRESSION: 1. No evidence of acute intracranial hemorrhage or edematous territorial infarction. 2. No evidence of acute fracture or traumatic subluxation of the cervical spine. 3. No evidence of acute fracture of the maxillofacial bones. 4. Small left parietal scalp hematoma. No associated osseous calvarial abnormalities. 5. Moderate maxillary odontogenic disease. Medications Medications Current Medications Al Hydroxide/Mg Hydroxide (Magnesium Hydrox/Alum Hydrox 30 Ml Oral.Susp) 30 ml PO Q6H PRN PRN Reason: Heartburn/Nausea Aripiprazole (Aripiprazole 2 Mg Tablet) 2 mg PO BEDTIME [facility] Last Admin: 06/30/23 19:50 Dose: 2 mg Azithromycin (Azithromycin 250 Mg Tablet) 250 mg PO Q24H [facility] Stop: 07/06/23 09:00 Baclofen (Baclofen 10 Mg Tablet) 10 mg PO BID PRN PRN Reason: muscle aches Last Admin: 06/29/23 09:02 Dose: 10 mg Benzocaine (Throat Lozenge, Medicated Lozenge) 1 lozenge MUCOUS MEM Q2H PRN PRN Reason: Sore Throat Last Admin: 07/01/23 11:58 Dose: 1 lozenge Bisacodyl (Bisacodyl 5 Mg Tablet.Dr) 10 mg PO DAILY PRN PRN Reason: Constipation Last Admin: 06/29/23 11:43 Dose: 10 mg Bupropion HCl (Bupropion Hcl Xl 300 Mg Tab.Er.24h) 300 mg PO DAILY [facility] Last Admin: 07/01/23 08:42 Dose: 300 mg Buspirone HCl (Buspirone Hcl 10 Mg Tablet) 10 mg PO TID [facility] Last Admin: 07/01/23 14:26 Dose: 10 mg Capsaicin (Capsaicin 0.025% Cream 60 Gm Tube) 1 appl TOPICAL TID PRN; Protocol PRN Reason: Pain, Mild (Pain Scale 1-3) Last Admin: 06/26/23 12:11 Dose: 1 appl Clonidine HCl (Clonidine Hcl 0.1 Mg Tablet) 0.1 mg PO BEDTIME [facility]; Protocol Last Admin: 06/30/23 19:50 Dose: 0.1 mg Clonidine HCl (Clonidine Hcl 0.1 Mg Tablet) 0.1 mg PO Q6H PRN; Protocol PRN Reason: tachycardia/Anxiety Last Admin: 06/30/23 13:10 Dose: 0.1 mg Diphenhydramine HCl (Diphenhydramine Hcl 25 Mg Capsule) 50 mg PO BEDTIME [facility] Last Admin: 06/30/23 19:50 Dose: 50 mg Docusate Sodium (Docusate Sodium 100 Mg Capsule) 100 mg PO BID [facility] Last Admin: 07/01/23 08:43 Dose: 100 mg Escitalopram Oxalate (Escitalopram Oxalate 20 Mg Tablet) 20 mg PO DAILY [facility] Last Admin: 07/01/23 08:42 Dose: 20 mg Gabapentin (Gabapentin 400 Mg Capsule) 800 mg PO TID [facility] Last Admin: 07/01/23 14:26 Dose: 800 mg Guaifenesin (Guaifenesin La 600 Mg Tab.Er.12h) 600 mg PO BID PRN PRN Reason: Congestion Last Admin: 06/28/23 20:15 Dose: 600 mg Hydroxyzine HCl (Hydroxyzine Hcl 50 Mg Tablet) 50 mg PO TID PRN PRN Reason: Anxiety Last Admin: 06/29/23 18:07 Dose: 50 mg Lidocaine (Lidocaine 4 % Patch Adh..Patch) 1 patch TRANSDERMA DAILY [facility]; Protocol Last Admin: 07/01/23 09:51 Dose: 1 patch Lidocaine (Lidocaine 4 % Patch Adh..Patch) 1 patch TRANSDERMA DAILY [facility]; Protocol Last Admin: 07/01/23 09:51 Dose: 1 patch Magnesium Hydroxide (Milk Of Magnesia 30 Ml Oral.Susp) 30 ml PO DAILY PRN PRN Reason: Constipation Melatonin (Melatonin 3 Mg Tablet) 6 mg PO BEDTIME [facility] Last Admin: 06/30/23 19:50 Dose: 6 mg Methadone HCl (Methadone Hcl 20 Mg/2 Ml Oral.Conc) 60 mg PO DAILY [facility] Last Admin: 07/01/23 08:43 Dose: 60 mg Multi-Ingred Medicated Throat [place] (Throat [place], Medicated 177 Ml Bottle) 1 spray MUCOUS MEM Q2H PRN PRN Reason: Sore Throat Last Admin: 07/01/23 14:26 Dose: 1 spray Multivitamins/Vitamin C (Multivitamin Tablet) 1 tab PO DAILY [facility] Last Admin: 07/01/23 08:42 Dose: 1 tab Nicotine (Nicotine 21 Mg Patch.Td24) 21 mg TRANSDERMA DAILY [facility] Last Admin: 07/01/23 09:54 Dose: 21 mg Nicotine Polacrilex (Nicotine Polacrilex 2 Mg Gum) 2 mg BUCCAL Q2H PRN PRN Reason: Nicotine Cravings Last Admin: 06/30/23 18:17 Dose: 2 mg Bio Oil Skincare Oil 1 each TOPICAL BID PRN PRN Reason: facial/nasal scars Last Admin: 06/27/23 08:46 Dose: 1 each Olanzapine (Olanzapine 5 Mg Tablet) 5 mg PO BID PRN PRN Reason: agitation, anxiety Last Admin: 06/30/23 16:08 Dose: 5 mg Ondansetron HCl (Ondansetron Odt 4 Mg Tab.Rapdis) 4 mg TRANSLINGU Q6H PRN PRN Reason: Nausea Last Admin: 06/23/23 19:02 Dose: 4 mg Ondansetron HCl (Ondansetron Odt 4 Mg Tab.Rapdis) 4 mg TRANSLINGU Q6H PRN PRN Reason: Nausea and Vomiting Polyethylene Glycol (Polyethylene Glycol 3350 17 Gm Powd.Pack) 17 gm PO DAILY [facility] Last Admin: 07/01/23 09:51 Dose: 17 gm Quetiapine Fumarate (Quetiapine Fumarate 100 Mg Tablet) 100 mg PO BEDTIME [facility] Last Admin: 06/30/23 19:51 Dose: 100 mg Quetiapine Fumarate (Quetiapine Fumarate 100 Mg Tablet) 100 mg PO TID [facility] Last Admin: 07/01/23 14:26 Dose: 100 mg Saliva Substitute (Dry Mouth [place] 60 Ml [place]) 1 spray MUCOUS MEM Q2H PRN PRN Reason: Dry Mouth Last Admin: 06/30/23 13:10 Dose: 1 spray Senna (Sennosides 8.6 Mg Tablet) 17.2 mg PO BEDTIME [facility] Last Admin: 06/30/23 19:50 Dose: 17.2 mg Sodium Biphosphate/Sodium Phosphate (Sodium Phosphate,[place]-Dibasic 133 Ml Enema) 133 ml [place] ONCE PRN PRN Reason: Constipation Last Admin: 06/30/23 17:56 Dose: 133 ml Allergies Allergies Allergy/AdvReac Type Severity Reaction Status Date / Time Penicillins [PENICILLINS] Allergy Severe ANAPHYLAXIS Verified 06/11/23 14:46 soap [SOAP] Allergy Intermediate ITCHING Verified 06/11/23 14:46 aspirin [ASA] Allergy Unknown ANAPHYLAXIS Verified 06/11/23 14:46 cat dander [cats] Allergy Unknown moderately Verified 06/11/23 14:46 severe latex [LATEX] Allergy Unknown ANAPHYLAXIS Verified 06/11/23 14:46 tramadol [TRAMADOL] Allergy Unknown HIVES, Rash Verified 06/11/23 14:46 acetaminophen [From Tylenol] Allergy Hives Verified 06/11/23 14:46 squid Allergy Unknown Verified 06/18/23 17:56 trazodone AdvReac Severe restless Verified 06/15/23 10:45 legs Assessment & Plan Assessment & Plan (1) MDD (major depressive disorder), recurrent episode, moderate: Status: Acute Code(s): F33.1 - Major depressive disorder, recurrent, moderate (2) Opioid abuse: Status: Acute Code(s): F11.10 - Opioid abuse, uncomplicated (3) Polysubstance use disorder: Status: Acute Code(s): F19.90 - Other psychoactive substance use, unspecified, uncomplicated Plan 32 yo female, hx of major depression, opiate and polysubstance use disorder, s/p relapse,fall. Recent detox where all of her psychotropics were stopped. 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 Plan: Increase Methadone to 35 mg today. 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 06/19 Patient reports that she remains quite depressed and very anxious. Wants help changing medications to deal with anxiety. Patient said that when she was last hospitalized her medications were different and she felt that she was doing better. High School Professional reviewed history and patient would like to get back on Lexapro and BuSpar. She said she used to be on Ambien at nighttime however conventional underwriter discussed that this is unlikely the best option and she instead agrees to increase Seroquel at bedtime and during the day. -will hold off increasing Wellbutrin further since patient is complaining of trouble sleeping 06/20?continue?current?medication?regimen?other?than?having?added?extra?lidocaine?patch continue Seroquel to 50 mg b.i.d 0900, 1400. (up from 25 mg b.i.d.) Continue?bedtime Seroquel to 100 mg q.h.s. for continued insomnia Added clonidine 0.1 mg q.h.s. for insomnia Continue Lexapro 5 mg which patient was on before and says was helpful Continue BuSpar 10 mg t.i.d. which patient was on before and says was helpful Continue Abilify 2 mg daily 06/21/23: Metronidazole 500 mg bid x 7 days. 06/24/23: Continue current regime and plan of care. 06/25/23: Increase Wellbutrin XL to 300 mg daily Increase Lexapro to 10 mg daily 06/26/23: no changes today 06/27/23: add PRN zofran, consider decreasing Wellbutrin if nausea persists 06/29/23: Continue current plan and regime. OCD education 06/30/23 Increase Lexapro to 20 mg daily 07/01/23 Azithromycin course initiated for strep Continue current regime and plan of care. Patient educated on: medication risk/benefits Informed Consent: understands Reason for continued inpatient stay Substantial Risk for: rapid decompensation Time Spent With Patient Time: Total time managing care of this patient today ____ minutes.
[2023-07-01 16:19] VITALS: BP 107/65; PULSE 101; RESP 16
[2023-07-01] MEDS: cloNIDine HCL 0.1 MG TABLET PO ×2 (16:19→19:45)
[2023-07-01] MEDS: OLANZapine 5 MG TABLET PO (16:19)
[2023-07-01] MEDS: Nicotine Polacrilex 2 MG GUM BUCCAL (16:19)
[2023-07-01] MEDS: diphenhydrAMINE HCL 25 MG CAPSULE 50 MG PO (19:46)
[2023-07-01] MEDS: ARIPiprazole 2 MG TABLET PO (19:46)
[2023-07-01] MEDS: Melatonin 3 MG TABLET 6 MG PO (19:46)
[2023-07-01] MEDS: Sennosides 8.6 MG TABLET 17.2 MG PO (19:46)
[2023-07-02 08:00] VITALS: BP 109/61; PULSE 93; RESP 16; TEMP 37.3; O2SAT 95
[2023-07-02] MEDS: methADONE HCl 20 MG/2 ML ORAL.CONC 60 MG PO (08:58)
[2023-07-02] MEDS: buPROPion HCl XL 300 MG TAB.ER.24H PO (08:59)
[2023-07-02] MEDS: Gabapentin 400 MG CAPSULE 800 MG PO (08:59)
[2023-07-02] MEDS: Multivitamin TABLET 1 TAB PO (09:00)
[2023-07-02] MEDS: QUEtiapine Fumarate 100 MG TABLET PO ×2 (09:00→20:00)
[2023-07-02] MEDS: Azithromycin 250 MG TABLET PO (09:00)
[2023-07-02] MEDS: Escitalopram Oxalate 20 MG TABLET PO (09:00)
[2023-07-02] MEDS: Docusate Sodium 100 MG CAPSULE PO (09:00)
[2023-07-02] MEDS: busPIRone HCl 10 MG TABLET PO ×2 (09:01→19:52)
[2023-07-02 09:46] VITALS: TEMP 36.6
[2023-07-02] MEDS: hydrOXYzine HCL 50 MG TABLET PO ×2 (10:53→16:16)
[2023-07-02] MEDS: Nicotine 21 MG PATCH.TD24 TRANSDERMA (10:54)
[2023-07-02] MEDS: Lidocaine 4 % Patch ADH..PATCH 1 PATCH TRANSDERMA ×2 (10:54)
[2023-07-02] MEDS: Throat Lozenge, Medicated LOZENGE 1 LOZENGE MUCOUS MEM ×2 (10:54→15:47)
[2023-07-02] MEDS: Nicotine Polacrilex 2 MG GUM BUCCAL ×2 (10:54→18:21)
[2023-07-02] MEDS: Throat Spray, Medicated 177 ML BOTTLE 1 SPRAY MUCOUS MEM ×2 (10:54→15:47)
[2023-07-02] MEDS: cloNIDine HCL 0.1 MG TABLET PO ×3 (10:54→19:52)
[2023-07-02] MEDS: CULTURELLE 1 EACH PO (13:00)
--- NOTE | 2023-07-02 14:46 | HO.PSYCHPN ---
Subjective Subjective Date of Service: 07/02/23 Reason For Visit: recurrent major depression; opiate/ cocain use d/o Subjective Notes: Conditional Voluntary Healthcare Proxy: No Guardianship: No Medical Problems Affecting Mental Status: No Interim History: Discussed in team. No respite options or CSS options for pt at this time. Discussed discharge-Will continue treatment over the weekend and assess if options are available for pt on 07/05. Pt approached a peer and let them know she will leave on 07/05 and suicide. Peer informed team. Pt approached team telling them that she has been cheeking meds for 3 days and storing them to overdose/suicide. Met with pt and Rose Tinsley RN, pt's primary nurse. Pt reports she has not taken meds in 7+ days, reports depression, reports symptoms she does not feel comfortable talking about as she worries we will make an assessment of her as being crazy . Tells team she fears that this assessment will lead to treatment changes. Acknowledges paranoia, depression, anxiety. Denies perceptual alterations. Discussed making medication changes to address symptoms, needs and recent admission of non compliance. She agrees. Discussed other treatment options for depression, ECT, TMS. Pt states she would like to remain with med trials. Room, body, belonging search done by team-pt reports she has flushed meds, no contraband found except for one pair of tweezers per team. 5 minute checks initiated. Mouth checks initiated. Medication Compliance: No (~7 days, hiding meds, non compliance) Side effects from medications: No Attending Groups: Intermittent Review of Systems Acute medical concerns: No Medical Review of Systems: unchanged Review of Systems Reports sore throat Mental Status Exam Mental Status Exam Patient Appearance: Appropriate Patient Orientation: Person, Place, Time and Situation Level of Consciousness: Alert Patient Behavior: Guarded, Passive, Anxious, Good Eye Contact and Crying Mood Description: Depressed Affect Description: Flat Patient Cognition Impaired: No Ability to Follow Directions: Fair Speech Pattern: Spontaneous Speech Memory Description: Intact Hallucinations: None (denies) Delusions: Paranoid Ideation (reports) and Present Perceptual Disturbances: Depersonalization and Derealization Thought Process: Distracted and Rumination Thought Content: positive for Diamond, positive for Circumstantial, positive for Perseveration, positive for Evasive and positive for Suicidal Ideation Depressive Symptoms: Increased Anxiety, Hopelessness, Unhappiness, Thoughts of /Suicide, Low Self Esteem and Loss of Energy Judgement: Poor Diagnostics Vital Signs (24Hr): Vital Signs - 24 hr 07/01/23 16:19 07/02/23 08:00 07/02/23 09:46 Temperature 99.2 F 98 F Pulse Rate 101 H 93 Respiratory Rate 16 16 Blood Pressure 107/65 109/61 Pulse Oximetry 95 Oxygen Delivery Method Room Air Room Air BMI result Body Mass Index 26.0 Labs 06/11/23 19:41 06/16/23 08:10 Imaging Radiology Impressions: ITS Impressions Knee X-Ray 06/11/23 15:53 IMPRESSION: 1. No acute findings. 2. Medullary femoral diaphyseal bone infarct. Cervical Spine CT 06/11/23 16:34 IMPRESSION: 1. No evidence of acute intracranial hemorrhage or edematous territorial infarction. 2. No evidence of acute fracture or traumatic subluxation of the cervical spine. 3. No evidence of acute fracture of the maxillofacial bones. 4. Small left parietal scalp hematoma. No associated osseous calvarial abnormalities. 5. Moderate maxillary odontogenic disease. Face CT 06/11/23 16:34 IMPRESSION: 1. No evidence of acute intracranial hemorrhage or edematous territorial infarction. 2. No evidence of acute fracture or traumatic subluxation of the cervical spine. 3. No evidence of acute fracture of the maxillofacial bones. 4. Small left parietal scalp hematoma. No associated osseous calvarial abnormalities. 5. Moderate maxillary odontogenic disease. Head CT 06/11/23 16:34 IMPRESSION: 1. No evidence of acute intracranial hemorrhage or edematous territorial infarction. 2. No evidence of acute fracture or traumatic subluxation of the cervical spine. 3. No evidence of acute fracture of the maxillofacial bones. 4. Small left parietal scalp hematoma. No associated osseous calvarial abnormalities. 5. Moderate maxillary odontogenic disease. Medications Medications Current Medications Al Hydroxide/Mg Hydroxide (Magnesium Hydrox/Alum Hydrox 30 Ml Oral.Susp) 30 ml PO Q6H PRN PRN Reason: Heartburn/Nausea Aripiprazole (Aripiprazole 2 Mg Tablet) 2 mg PO BEDTIME [facility] Last Admin: 07/01/23 19:46 Dose: 2 mg Azithromycin (Azithromycin 250 Mg Tablet) 250 mg PO Q24H [facility] Stop: 07/06/23 09:00 Last Admin: 07/02/23 09:00 Dose: 250 mg Baclofen (Baclofen 10 Mg Tablet) 10 mg PO BID PRN PRN Reason: muscle aches Last Admin: 06/29/23 09:02 Dose: 10 mg Benzocaine (Throat Lozenge, Medicated Lozenge) 1 lozenge MUCOUS MEM Q2H PRN PRN Reason: Sore Throat Last Admin: 07/02/23 10:54 Dose: 1 lozenge Bisacodyl (Bisacodyl 5 Mg Tablet.Dr) 10 mg PO DAILY PRN PRN Reason: Constipation Last Admin: 06/29/23 11:43 Dose: 10 mg Bupropion HCl (Bupropion Hcl Xl 300 Mg Tab.Er.24h) 300 mg PO DAILY [facility] Last Admin: 07/02/23 08:59 Dose: 300 mg Buspirone HCl (Buspirone Hcl 10 Mg Tablet) 10 mg PO TID [facility] Last Admin: 07/02/23 09:01 Dose: 10 mg Capsaicin (Capsaicin 0.025% Cream 60 Gm Tube) 1 appl TOPICAL TID PRN; Protocol PRN Reason: Pain, Mild (Pain Scale 1-3) Last Admin: 06/26/23 12:11 Dose: 1 appl Clonidine HCl (Clonidine Hcl 0.1 Mg Tablet) 0.1 mg PO BEDTIME [facility]; Protocol Last Admin: 07/01/23 19:45 Dose: 0.1 mg Clonidine HCl (Clonidine Hcl 0.1 Mg Tablet) 0.1 mg PO Q6H PRN; Protocol PRN Reason: tachycardia/Anxiety Last Admin: 07/02/23 10:54 Dose: 0.1 mg Diphenhydramine HCl (Diphenhydramine Hcl 25 Mg Capsule) 50 mg PO BEDTIME [facility] Last Admin: 07/01/23 19:46 Dose: 50 mg Docusate Sodium (Docusate Sodium 100 Mg Capsule) 100 mg PO BID [facility] Last Admin: 07/02/23 09:00 Dose: 100 mg Escitalopram Oxalate (Escitalopram Oxalate 20 Mg Tablet) 20 mg PO DAILY [facility] Last Admin: 07/02/23 09:00 Dose: 20 mg Gabapentin (Gabapentin 400 Mg Capsule) 800 mg PO TID [facility] Last Admin: 07/02/23 08:59 Dose: 800 mg Guaifenesin (Guaifenesin La 600 Mg Tab.Er.12h) 600 mg PO BID PRN PRN Reason: Congestion Last Admin: 06/28/23 20:15 Dose: 600 mg Hydroxyzine HCl (Hydroxyzine Hcl 50 Mg Tablet) 50 mg PO TID PRN PRN Reason: Anxiety Last Admin: 07/02/23 10:53 Dose: 50 mg Lidocaine (Lidocaine 4 % Patch Adh..Patch) 1 patch TRANSDERMA DAILY [facility]; Protocol Last Admin: 07/02/23 10:54 Dose: 1 patch Lidocaine (Lidocaine 4 % Patch Adh..Patch) 1 patch TRANSDERMA DAILY [facility]; Protocol Last Admin: 07/02/23 10:54 Dose: 1 patch Magnesium Hydroxide (Milk Of Magnesia 30 Ml Oral.Susp) 30 ml PO DAILY PRN PRN Reason: Constipation Melatonin (Melatonin 3 Mg Tablet) 6 mg PO BEDTIME [facility] Last Admin: 07/01/23 19:46 Dose: 6 mg Methadone HCl (Methadone Hcl 20 Mg/2 Ml Oral.Conc) 60 mg PO DAILY [facility] Last Admin: 07/02/23 08:58 Dose: 60 mg Multi-Ingred Medicated Throat Hampton (Throat Hampton, Medicated 177 Ml Bottle) 1 spray MUCOUS MEM Q2H PRN PRN Reason: Sore Throat Last Admin: 07/02/23 10:54 Dose: 1 spray Multivitamins/Vitamin C (Multivitamin Tablet) 1 tab PO DAILY [facility] Last Admin: 07/02/23 09:00 Dose: 1 tab Nicotine (Nicotine 21 Mg Patch.Td24) 21 mg TRANSDERMA DAILY [facility] Last Admin: 07/02/23 10:54 Dose: 21 mg Nicotine Polacrilex (Nicotine Polacrilex 2 Mg Gum) 2 mg BUCCAL Q2H PRN PRN Reason: Nicotine Cravings Last Admin: 07/02/23 10:54 Dose: 2 mg Bio Oil Skincare Oil 1 each TOPICAL BID PRN PRN Reason: facial/nasal scars Last Admin: 06/27/23 08:46 Dose: 1 each Culturelle 1 cap PO DAILY [facility] Last Admin: 07/02/23 13:00 Dose: 1 cap Olanzapine (Olanzapine 5 Mg Tablet) 5 mg PO BID PRN PRN Reason: agitation, anxiety Last Admin: 07/01/23 16:19 Dose: 5 mg Ondansetron HCl (Ondansetron Odt 4 Mg Tab.Rapdis) 4 mg TRANSLINGU Q6H PRN PRN Reason: Nausea Last Admin: 06/23/23 19:02 Dose: 4 mg Ondansetron HCl (Ondansetron Odt 4 Mg Tab.Rapdis) 4 mg TRANSLINGU Q6H PRN PRN Reason: Nausea and Vomiting Polyethylene Glycol (Polyethylene Glycol 3350 17 Gm Powd.Pack) 17 gm PO DAILY [facility] Last Admin: 07/02/23 09:01 Dose: Not Given Quetiapine Fumarate (Quetiapine Fumarate 100 Mg Tablet) 100 mg PO BEDTIME [facility] Last Admin: 07/01/23 19:45 Dose: 100 mg Quetiapine Fumarate (Quetiapine Fumarate 100 Mg Tablet) 100 mg PO TID [facility] Last Admin: 07/02/23 09:00 Dose: 100 mg Saliva Substitute (Dry Mouth Hampton 60 Ml Hampton) 1 spray MUCOUS MEM Q2H PRN PRN Reason: Dry Mouth Last Admin: 06/30/23 13:10 Dose: 1 spray Senna (Sennosides 8.6 Mg Tablet) 17.2 mg PO BEDTIME [facility] Last Admin: 07/01/23 19:46 Dose: 17.2 mg Sodium Biphosphate/Sodium Phosphate (Sodium Phosphate,Butts-Dibasic 133 Ml Enema) 133 ml DC ONCE PRN PRN Reason: Constipation Last Admin: 06/30/23 17:56 Dose: 133 ml Allergies Allergies Allergy/AdvReac Type Severity Reaction Status Date / Time Penicillins [PENICILLINS] Allergy Severe ANAPHYLAXIS Verified 06/11/23 14:46 soap [SOAP] Allergy Intermediate ITCHING Verified 06/11/23 14:46 aspirin [ASA] Allergy Unknown ANAPHYLAXIS Verified 06/11/23 14:46 cat dander [cats] Allergy Unknown moderately Verified 06/11/23 14:46 severe latex [LATEX] Allergy Unknown ANAPHYLAXIS Verified 06/11/23 14:46 tramadol [TRAMADOL] Allergy Unknown HIVES, Rash Verified 06/11/23 14:46 acetaminophen [From Tylenol] Allergy Hives Verified 06/11/23 14:46 squid Allergy Unknown Verified 06/18/23 17:56 trazodone AdvReac Severe restless Verified 06/15/23 10:45 legs Assessment & Plan Assessment & Plan (1) MDD (major depressive disorder), recurrent episode, moderate: Status: Acute Code(s): F33.1 - Major depressive disorder, recurrent, moderate (2) Opioid abuse: Status: Acute Code(s): F11.10 - Opioid abuse, uncomplicated (3) Polysubstance use disorder: Status: Acute Code(s): F19.90 - Other psychoactive substance use, unspecified, uncomplicated (4) Borderline personality disorder: Status: Acute Code(s): F60.3 - Borderline personality disorder Plan 32 yo female, hx of major depression, opiate and polysubstance use disorder, s/p relapse,fall. Recent detox where all of her psychotropics were stopped. 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 Plan: Increase Methadone to 35 mg today. 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) Pt reports concern about STI-CTNG, BV, RPR, HCG, HIV panel Doxycycline 100 mg bid x 7 days, +Trich CSS referrals if available Collateral contact [facility] 06/16 (hx hyponatremia) 06/16- BMP WNL, Na corrected Continue regime and plan of care Addiction Medicine consult appreciated 06/18/23- Seroquel 25 mg 0900, 1400 for anxiety mgt. 06/19 Patient reports that she remains quite depressed and very anxious. Wants help changing medications to deal with anxiety. Patient said that when she was last hospitalized her medications were different and she felt that she was doing better. Manager Of Program reviewed history and patient would like to get back on Lexapro and BuSpar. 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 -will hold off increasing Wellbutrin further since patient is complaining of trouble sleeping 06/20?continue?current?medication?regimen?other?than?having?added?extra?lidocaine?patch continue Seroquel to 50 mg b.i.d 0900, 1400. (up from 25 mg b.i.d.) Continue?bedtime Seroquel to 100 mg q.h.s. for continued insomnia Added clonidine 0.1 mg q.h.s. for insomnia Continue Lexapro 5 mg which patient was on before and says was helpful Continue BuSpar 10 mg t.i.d. which patient was on before and says was helpful Continue Abilify 2 mg daily 06/21/23: Metronidazole 500 mg bid x 7 days. 06/24/23: Continue current regime and plan of care. 06/25/23: Increase Wellbutrin XL to 300 mg daily Increase Lexapro to 10 mg daily 06/26/23: no changes today 06/27/23: add PRN zofran, consider decreasing Wellbutrin if nausea persists 06/29/23: Continue current plan and regime. OCD education 06/30/23 Increase Lexapro to 20 mg daily 07/02/23 Pt reports plan to suicide on discharge to a peer. Informs team that she has been cheeking meds for ~7 days with intent to stockpile and overdose/suicide. Room search completed-no meds found-pt reports she has flushed them in the bathroom. States she fears giving truthful reports about her symptoms. Change to 5 minute checks Mouth checks Add 2 days to azithromycin Rx for full treatment of strep given recent med noncompliance Decrease Lexapro to 10 mg daily Decrease Gabapentin to 300 mg tid Discontinue Wellbutrin Zyprexa 5 mg bid Continue Seroquel 100 mg hs. Discontinue 100 mg tid For anxiety, buspirone, clonidine, gabapentin, olanzapine. Repeat diagnostics. Patient educated on: medication risk/benefits, ECT, TMS and therapeutic strategies Informed Consent: understands Reason for continued inpatient stay Substantial Risk for: harm to self, inability to function and rapid decompensation Time Spent With Patient Time: Total time managing care of this patient today ____ minutes.
--- NOTE | 2023-07-02 16:02 | PC.NURSE ---
Pt anxious/depressed/hopeless. Pt reported she felt like a burden to the hospital and everyone in her life. Pt reported strong desire to end her life and informed nurse that she had not been taking her medications for 3-7 days. Pt stated she pretended to take medication and instead had been saving medications with plan to overdose. Pt reported she was very depressed being in the hospital and that she did not want to stay inpatient any longer. Pt reported she decided to flush all of the medications down the toilet this am because she believed she was leaving today to go to respite and felt like she did not need to overdose. Pt also reported she decided to flush medications because she was fearful that her roommate would accidently find and consume her medications. Pt reported feeling more depressed after learning that she would not discharge today. Pt reported strong desire to end her life as she felt there was no hope for her future. Provider made aware of patient's SI statements, cheeking/saving medications, and reportedly flushing medications down the toilet this am. Room search performed with order, and patient placed on 5 minute checks. No medications located during room search. [ End ]
[2023-07-02 18:00] VITALS: BP 111/74; PULSE 88
--- NOTE | 2023-07-02 18:43 | PC.NURSE ---
Pt submitted a Three Day Notice on Wednesday07/02/2023 up on Wednesday07/07/2023.
[2023-07-02 19:49] VITALS: BP 134/77; PULSE 80; RESP 18; O2SAT 96
[2023-07-02] MEDS: Melatonin 3 MG TABLET 6 MG PO (19:51)
[2023-07-02] MEDS: OLANZapine 5 MG TABLET PO (19:52)
[2023-07-02] MEDS: diphenhydrAMINE HCL 25 MG CAPSULE 50 MG PO (19:52)
[2023-07-02] MEDS: Gabapentin 300 MG CAPSULE PO (19:52)
[2023-07-02] MEDS: Sennosides 8.6 MG TABLET 17.2 MG PO (19:52)
[2023-07-03 03:26] LABS: CT PCR NOT DETECTED (Not Detect.); NG PCR NOT DETECTED (Not Detect.)
[2023-07-03 08:02] VITALS: BP 104/58; PULSE 71; RESP 16; TEMP 36.6; O2SAT 97
[2023-07-03 08:08] LABS: MANUAL DIFF FLAG NO
[2023-07-03 08:15] LABS: Basophils Percent Auto 0.9 % (0-2); Eosinophils Absolute Auto 0.2 X10*3/uL (0.0-0.4); Eosinophils Percent Auto 4.3 % (0-4); Hematocrit 37.8 % (37.0-47.0); Hemoglobin 12.2 g/dl (12.0-16.0); Imm Gran Abs Auto 0.01 X10*3/uL (0.00-0.03); Imm Gran Pct Auto 0.2 % (0.0-0.4); Lymphocytes Absolute Auto 1.8 X10*3/uL (1.2-4.9); Lymphocytes Percent Auto 38.5 % (20-40); Mean Corpuscular HGB Conc 32.3 g/dl (31.0-35.0); Mean Corpuscular Hemoglobin 25.2 pg (27.0-33.0); Mean Corpuscular Volume 77.9 fL (80.0-98.0); Monocytes Absolute Auto 0.4 X10*3/uL (0.1-1.2); Monocytes Percent Auto 8.1 % (2-11); Neutrophils Absolute Auto 2.2 x10*3/uL (2.0-8.3); Platelet Count 344 X10*3/uL (160-400); Red Blood Count 4.85 X10*6/uL (4.20-5.50); Red Cell Distribution Width 16.5 % (11.0-16.0); White Blood Count 4.7 X10*3/uL (4.8-10.8)
[2023-07-03 08:29] LABS: Alanine Aminotransferase 18 U/L (0-31); Albumin Level 3.8 g/dL (3.5-5.0); Alkaline Phosphatase 107 U/L (39-117); Anion Gap 12 (12-20); Aspartate Amino Transferase 26 U/L (5-31); Bilirubin Total 0.3 mg/dL (0.0-1.0); Blood Urea Nitrogen 12 mg/dL (9-16); Calcium 9.1 mg/dL (8.4-10.2); Carbon Dioxide 24 mmol/L (22-29); Chloride 104 mmol/L (96-108); Creatinine Clr Calc Pharmacy 105.2; Estimated Glomerular Filt Rate > 60; Glucose Random 88 mg/dL (60-115); Sodium 136 mmol/L (135-145); Total Protein 7.7 g/dL (6.5-8.0)
[2023-07-03] MEDS: CULTURELLE 1 EACH PO (09:02)
[2023-07-03] MEDS: Lidocaine 4 % Patch ADH..PATCH 1 PATCH TRANSDERMA (09:02)
[2023-07-03] MEDS: methADONE HCl 20 MG/2 ML ORAL.CONC 60 MG PO (09:02)
[2023-07-03] MEDS: busPIRone HCl 10 MG TABLET PO ×3 (09:03→19:41)
[2023-07-03] MEDS: Escitalopram Oxalate 10 MG TABLET PO (09:03)
[2023-07-03] MEDS: Multivitamin TABLET 1 TAB PO (09:03)
[2023-07-03] MEDS: Nicotine 21 MG PATCH.TD24 TRANSDERMA (09:03)
[2023-07-03] MEDS: Azithromycin 250 MG TABLET PO (09:03)
[2023-07-03] MEDS: OLANZapine 5 MG TABLET PO ×2 (09:03→19:41)
[2023-07-03] MEDS: Gabapentin 300 MG CAPSULE PO ×3 (09:03→19:41)
--- NOTE | 2023-07-03 10:34 | HO.PSYCHPN ---
Subjective Subjective Date of Service: 07/03/23 Reason For Visit: recurrent major depression; opiate/ cocain use d/o Subjective Notes: 3 Day Interim History: Discussed with staff; No respite options or CSS options for pt at this time. Yesterday,. Pt approached a peer and let them know she will leave on 07/05 and suicide. Peer informed team. ON 07/02, Pt approached team telling them that she has been cheeking meds for 3 days and storing them to overdose/suicide. When staff apporach pt, pt reported she has not taken meds in 7+ days, reports depression, reports symptoms she does not feel comfortable talking about as she worries we will make an assessment of her as being crazy . TPt reports paranoia, depression, anxiety. Denies perceptual alterations. On 07/02 Room, body, belonging search done by team-pt reports she has flushed meds, no contraband found except for one pair of tweezers per team. Pt reports med compliance and nurses doing mouth checks, pt is on 5 minute checksand will continue with mouth checks initiated. Pt signed a 3 day notice. Medication Compliance: Yes Attending Groups: No Review of Systems Acute medical concerns: No Medical Review of Systems: unchanged Review of Systems Review of Systems Yes all other systems are reviewed and are negative Constitutional: Reports body ache(s) Reports sore throat Musculoskeletal: Reports other (s/p fall, facial/nasal injuries without fracture) Psychiatric: Reports abnormal sleep pattern, Reports anxiety, Reports depression, Reports difficulty concentrating, Reports hopelessness, Reports irritability, Reports anhedonia and Reports suicidal ideation Mental Status Exam Mental Status Exam Patient Appearance: Appropriate Patient Orientation: Person, Place, Time and Situation Level of Consciousness: Alert Patient Behavior: Guarded, Passive, Anxious, Good Eye Contact and Crying Mood Description: Depressed Affect Description: Flat Patient Cognition Impaired: No Ability to Follow Directions: Fair Speech Pattern: Spontaneous Speech Memory Description: Intact Thought Process: Rumination and Evasive Thought Content: positive for [place] Judgement: Poor Diagnostics Vital Signs (24Hr): Vital Signs - 24 hr 07/02/23 18:00 07/02/23 19:49 Pulse Rate 88 80 Respiratory Rate 18 Blood Pressure 111/74 134/77 Pulse Oximetry 96 Oxygen Delivery Method Room Air BMI result Body Mass Index 26.0 Labs 07/03/23 07:42 07/03/23 07:42 Labs: Laboratory Results - last 48 hr 07/02/23 07/03/23 17:21 07:42 WBC 4.7 L RBC 4.85 Hgb 12.2 Hct 37.8 MCV 77.9 L MCH 25.2 L MCHC 32.3 RDW 16.5 H Plt Count 344 D MPV 10.0 Immature Gran % (Auto) 0.2 Neut % (Auto) 48.0 Lymph % (Auto) 38.5 [place] % (Auto) 8.1 Eos % (Auto) 4.3 H Baso % (Auto) 0.9 Lymph # (Auto) 1.8 [place] # (Auto) 0.4 Eos # (Auto) 0.2 Baso # (Auto) 0.0 Abs Immat Gran (auto) 0.01 Absolute Neuts (auto) 2.2 Absolute Nucleated RBC 0.000 Nucleated RBC % (auto) 0.0 Sodium 136 Potassium 4.0 Chloride 104 Carbon Dioxide 24 Anion Gap 12 BUN 12 Creatinine 0.75 Estim Creat Clear Calc 105.2 Estimated GFR > 60 Random Glucose 88 Calcium 9.1 Total Bilirubin 0.3 AST 26 ALT 18 Alkaline Phosphatase 107 Total Protein 7.7 Albumin 3.8 Chlam trachomat DNA PCR NOT DETECTED N.gonorrhoeae DNA (PCR) NOT DETECTED Imaging Radiology Impressions: ITS Impressions Knee X-Ray 06/11/23 15:53 IMPRESSION: 1. No acute findings. 2. Medullary femoral diaphyseal bone infarct. Cervical Spine CT 06/11/23 16:34 IMPRESSION: 1. No evidence of acute intracranial hemorrhage or edematous territorial infarction. 2. No evidence of acute fracture or traumatic subluxation of the cervical spine. 3. No evidence of acute fracture of the maxillofacial bones. 4. Small left parietal scalp hematoma. No associated osseous calvarial abnormalities. 5. Moderate maxillary odontogenic disease. Face CT 06/11/23 16:34 IMPRESSION: 1. No evidence of acute intracranial hemorrhage or edematous territorial infarction. 2. No evidence of acute fracture or traumatic subluxation of the cervical spine. 3. No evidence of acute fracture of the maxillofacial bones. 4. Small left parietal scalp hematoma. No associated osseous calvarial abnormalities. 5. Moderate maxillary odontogenic disease. Head CT 06/11/23 16:34 IMPRESSION: 1. No evidence of acute intracranial hemorrhage or edematous territorial infarction. 2. No evidence of acute fracture or traumatic subluxation of the cervical spine. 3. No evidence of acute fracture of the maxillofacial bones. 4. Small left parietal scalp hematoma. No associated osseous calvarial abnormalities. 5. Moderate maxillary odontogenic disease. Medications Medications Current Medications Al Hydroxide/Mg Hydroxide (Magnesium Hydrox/Alum Hydrox 30 Ml Oral.Susp) 30 ml PO Q6H PRN PRN Reason: Heartburn/Nausea Azithromycin (Azithromycin 250 Mg Tablet) 250 mg PO Q24H LASHA Stop: 07/08/23 09:00 Last Admin: 07/03/23 09:03 Dose: 250 mg Baclofen (Baclofen 10 Mg Tablet) 10 mg PO BID PRN PRN Reason: muscle aches Last Admin: 06/29/23 09:02 Dose: 10 mg Benzocaine (Throat Lozenge, Medicated Lozenge) 1 lozenge MUCOUS MEM Q2H PRN PRN Reason: Sore Throat Last Admin: 07/02/23 15:47 Dose: 1 lozenge Bisacodyl (Bisacodyl 5 Mg Tablet.Dr) 10 mg PO DAILY PRN PRN Reason: Constipation Last Admin: 06/29/23 11:43 Dose: 10 mg Buspirone HCl (Buspirone Hcl 10 Mg Tablet) 10 mg PO TID LASHA Last Admin: 07/03/23 09:03 Dose: 10 mg Capsaicin (Capsaicin 0.025% Cream 60 Gm Tube) 1 appl TOPICAL TID PRN; Protocol PRN Reason: Pain, Mild (Pain Scale 1-3) Last Admin: 06/26/23 12:11 Dose: 1 appl Clonidine HCl (Clonidine Hcl 0.1 Mg Tablet) 0.1 mg PO BEDTIME LASHA; Protocol Last Admin: 07/02/23 19:52 Dose: 0.1 mg Clonidine HCl (Clonidine Hcl 0.1 Mg Tablet) 0.1 mg PO Q6H PRN; Protocol PRN Reason: tachycardia/Anxiety Last Admin: 07/02/23 18:21 Dose: 0.1 mg Diphenhydramine HCl (Diphenhydramine Hcl 25 Mg Capsule) 50 mg PO BEDTIME LASHA Last Admin: 07/02/23 19:52 Dose: 50 mg Docusate Sodium (Docusate Sodium 100 Mg Capsule) 100 mg PO BID PRN PRN Reason: Constipation Escitalopram Oxalate (Escitalopram Oxalate 10 Mg Tablet) 10 mg PO DAILY [facility] Last Admin: 07/03/23 09:03 Dose: 10 mg Gabapentin (Gabapentin 300 Mg Capsule) 300 mg PO TID [facility] Last Admin: 07/03/23 09:03 Dose: 300 mg Guaifenesin (Guaifenesin [place] 600 Mg Tab.Er.12h) 600 mg PO BID PRN PRN Reason: Congestion Last Admin: 06/28/23 20:15 Dose: 600 mg Hydroxyzine HCl (Hydroxyzine Hcl 50 Mg Tablet) 50 mg PO TID PRN PRN Reason: Anxiety Last Admin: 07/02/23 16:16 Dose: 50 mg Lidocaine (Lidocaine 4 % Patch Adh..Patch) 1 patch TRANSDERMA DAILY [facility]; Protocol Last Admin: 07/03/23 09:02 Dose: 1 patch Magnesium Hydroxide (Milk Of Magnesia 30 Ml Oral.Susp) 30 ml PO DAILY PRN PRN Reason: Constipation Melatonin (Melatonin 3 Mg Tablet) 6 mg PO BEDTIME [facility] Last Admin: 07/02/23 19:51 Dose: 6 mg Methadone HCl (Methadone Hcl 20 Mg/2 Ml Oral.Conc) 60 mg PO DAILY [facility] Last Admin: 07/03/23 09:02 Dose: 60 mg Multi-Ingred Medicated Throat [place] (Throat [place], Medicated 177 Ml Bottle) 1 spray MUCOUS MEM Q2H PRN PRN Reason: Sore Throat Last Admin: 07/02/23 15:47 Dose: 1 spray Multivitamins/Vitamin C (Multivitamin Tablet) 1 tab PO DAILY [facility] Last Admin: 07/03/23 09:03 Dose: 1 tab Nicotine (Nicotine 21 Mg Patch.Td24) 21 mg TRANSDERMA DAILY [facility] Last Admin: 07/03/23 09:03 Dose: 21 mg Nicotine Polacrilex (Nicotine Polacrilex 2 Mg Gum) 2 mg BUCCAL Q2H PRN PRN Reason: Nicotine Cravings Last Admin: 07/02/23 18:21 Dose: 2 mg Bio Oil Skincare Oil 1 each TOPICAL BID PRN PRN Reason: facial/nasal scars Last Admin: 06/27/23 08:46 Dose: 1 each Culturelle 1 cap PO DAILY [facility] Last Admin: 07/03/23 09:02 Dose: 1 cap Olanzapine (Olanzapine 5 Mg Tablet) 5 mg PO BID [facility] Last Admin: 07/03/23 09:03 Dose: 5 mg Quetiapine Fumarate (Quetiapine Fumarate 100 Mg Tablet) 100 mg PO BEDTIME PRN PRN Reason: sleep Last Admin: 07/02/23 20:00 Dose: 100 mg Saliva Substitute (Dry Mouth [place] 60 Ml [place]) 1 spray MUCOUS MEM Q2H PRN PRN Reason: Dry Mouth Last Admin: 06/30/23 13:10 Dose: 1 spray Senna (Sennosides 8.6 Mg Tablet) 17.2 mg PO BEDTIME [facility] Last Admin: 07/02/23 19:52 Dose: 17.2 mg Allergies Allergies Allergy/AdvReac Type Severity Reaction Status Date / Time Penicillins [PENICILLINS] Allergy Severe ANAPHYLAXIS Verified 06/11/23 14:46 soap [SOAP] Allergy Intermediate ITCHING Verified 06/11/23 14:46 aspirin [ASA] Allergy Unknown ANAPHYLAXIS Verified 06/11/23 14:46 cat dander [cats] Allergy Unknown moderately Verified 06/11/23 14:46 severe latex [LATEX] Allergy Unknown ANAPHYLAXIS Verified 06/11/23 14:46 tramadol [TRAMADOL] Allergy Unknown HIVES, Rash Verified 06/11/23 14:46 acetaminophen [From Tylenol] Allergy Hives Verified 06/11/23 14:46 squid Allergy Unknown Verified 06/18/23 17:56 trazodone AdvReac Severe restless Verified 06/15/23 10:45 legs Assessment & Plan Assessment & Plan (1) MDD (major depressive disorder), recurrent episode, moderate: Status: Acute Code(s): F33.1 - Major depressive disorder, recurrent, moderate (2) Opioid abuse: Status: Acute Code(s): F11.10 - Opioid abuse, uncomplicated (3) Polysubstance use disorder: Status: Acute Code(s): F19.90 - Other psychoactive substance use, unspecified, uncomplicated (4) Borderline personality disorder: Status: Acute Code(s): F60.3 - Borderline personality disorder Plan 32 yo female, hx of major depression, opiate and polysubstance use disorder, s/p relapse,fall. Recent detox where all of her psychotropics were stopped. Pt verbalized SI in the ER [employer]. Plan: Increase Methadone to 35 mg today. 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 06/19 Patient reports that she remains quite depressed and very anxious. Wants help changing medications to deal with anxiety. Patient said that when she was last hospitalized her medications were different and she felt that she was doing better. Data Processing Operator reviewed history and patient would like to get back on Lexapro and BuSpar. She said she used to be on Ambien at nighttime however fha underwriter discussed that this is unlikely the best option and she instead agrees to increase Seroquel at bedtime and during the day. -will hold off increasing Wellbutrin further since patient is complaining of trouble sleeping 06/20?continue?current?medication?regimen?other?than?having?added?extra?lidocaine?patch continue Seroquel to 50 mg b.i.d 0900, 1400. (up from 25 mg b.i.d.) Continue?bedtime Seroquel to 100 mg q.h.s. for continued insomnia Added clonidine 0.1 mg q.h.s. for insomnia Continue Lexapro 5 mg which patient was on before and says was helpful Continue BuSpar 10 mg t.i.d. which patient was on before and says was helpful Continue Abilify 2 mg daily 06/21/23: Metronidazole 500 mg bid x 7 days. 06/24/23: Continue current regime and plan of care. 06/25/23: Increase Wellbutrin XL to 300 mg daily Increase Lexapro to 10 mg daily 06/26/23: no changes today 06/27/23: add PRN zofran, consider decreasing Wellbutrin if nausea persists 06/29/23: Continue current plan and regime. OCD education 06/30/23 Increase Lexapro to 20 mg daily 07/02/23 Pt reports plan to suicide on discharge to a peer. Informs team that she has been cheeking meds for ~7 days with intent to stockpile and overdose/suicide. Room search completed-no meds found-pt reports she has flushed them in the bathroom. States she fears giving truthful reports about her symptoms. Change to 5 minute checks Mouth checks Add 2 days to azithromycin Rx for full treatment of strep given recent med noncompliance Decrease Lexapro to 10 mg daily Decrease Gabapentin to 300 mg tid Discontinue Wellbutrin Zyprexa 5 mg bid Continue Seroquel 100 mg hs. Discontinue 100 mg tid For anxiety, buspirone, clonidine, gabapentin, olanzapine. Repeat diagnostics. 07/03/23 continue above treatment plan Patient educated on: medication risk/benefits and therapeutic strategies Informed Consent: understands and further education needed Reason for continued inpatient stay Substantial Risk for: harm to self, inability to function and rapid decompensation Time Spent With Patient Time: Total time managing care of this patient today ____ minutes.
[2023-07-03] MEDS: Nicotine Polacrilex 2 MG GUM BUCCAL ×3 (11:12→19:41)
[2023-07-03 12:41] LABS: BV Int Neg Control Negative (Negative); BV Int Pos Control Positive (Positive)
[2023-07-03] MEDS: cloNIDine HCL 0.1 MG TABLET PO ×2 (12:48→19:41)
[2023-07-03] MEDS: hydrOXYzine HCL 50 MG TABLET PO (12:48)
[2023-07-03 12:49] VITALS: BP 102/66; PULSE 74
[2023-07-03 16:50] VITALS: BP 99/58; PULSE 80; TEMP 36.7; O2SAT 97
[2023-07-03] MEDS: Melatonin 3 MG TABLET 6 MG PO (19:41)
[2023-07-03] MEDS: QUEtiapine Fumarate 100 MG TABLET PO (19:41)
[2023-07-03] MEDS: Sennosides 8.6 MG TABLET 17.2 MG PO (19:41)
[2023-07-03] MEDS: Throat Lozenge, Medicated LOZENGE 1 LOZENGE MUCOUS MEM (19:41)
[2023-07-03] MEDS: diphenhydrAMINE HCL 25 MG CAPSULE 50 MG PO (19:41)
[2023-07-03 19:46] VITALS: BP 100/62; PULSE 104
[2023-07-03] MEDS: Dry Mouth Spray 60 ML SPRAY 1 SPRAY MUCOUS MEM (20:25)
[2023-07-04 08:31] VITALS: BP 93/54; PULSE 72; RESP 16; TEMP 36.3; O2SAT 96
[2023-07-04] MEDS: busPIRone HCl 10 MG TABLET PO ×3 (08:46→20:32)
[2023-07-04] MEDS: Gabapentin 300 MG CAPSULE PO ×3 (08:46→20:32)
[2023-07-04] MEDS: methADONE HCl 20 MG/2 ML ORAL.CONC 60 MG PO (08:46)
[2023-07-04] MEDS: OLANZapine 5 MG TABLET PO ×2 (08:46→20:33)
[2023-07-04] MEDS: Escitalopram Oxalate 10 MG TABLET PO (08:46)
[2023-07-04] MEDS: Azithromycin 250 MG TABLET PO (08:46)
[2023-07-04] MEDS: Multivitamin TABLET 1 TAB PO (08:46)
[2023-07-04] MEDS: CULTURELLE 1 EACH PO (08:47)
[2023-07-04] MEDS: hydrOXYzine HCL 50 MG TABLET PO ×2 (11:04→17:51)
[2023-07-04] MEDS: Dry Mouth Spray 60 ML SPRAY 1 SPRAY MUCOUS MEM (11:04)
[2023-07-04] MEDS: Nicotine 21 MG PATCH.TD24 TRANSDERMA (11:04)
[2023-07-04] MEDS: Lidocaine 4 % Patch ADH..PATCH 1 PATCH TRANSDERMA (11:04)
[2023-07-04] MEDS: Nicotine Polacrilex 2 MG GUM BUCCAL ×3 (11:08→18:07)
[2023-07-04] MEDS: cloNIDine HCL 0.1 MG TABLET PO ×2 (13:16→20:32)
[2023-07-04] MEDS: Throat Lozenge, Medicated LOZENGE 1 LOZENGE MUCOUS MEM ×2 (13:18→18:08)
[2023-07-04 17:20] VITALS: BP 95/57; PULSE 78; RESP 16; TEMP 36.7; O2SAT 97
--- NOTE | 2023-07-04 17:56 | P.PNPSI_ITS ---
Subjective Subjective Date of Service: 07/04/23 Reason For Visit: recurrent major depression; opiate/ cocain use d/o Subjective Notes: 3 Day Interim History: Pt denies feeling depression btu appears depressed with flat affect; denies SI or HI. withdrawn; slept poorly due to disruptive peer. Pt signed a 3 day notice. Medication Compliance: Yes Side effects from medications: No Attending Groups: Intermittent Review of Systems Acute medical concerns: No Review of Systems Review of Systems Yes all other systems are reviewed and are negative Constitutional: Reports body ache(s) Reports sore throat Musculoskeletal: Reports other (s/p fall, facial/nasal injuries without fracture) Psychiatric: Reports abnormal sleep pattern, Reports anxiety, Reports depression, Reports difficulty concentrating, Reports hopelessness, Reports irritability, Reports anhedonia and Reports suicidal ideation Mental Status Exam Mental Status Exam Patient Appearance: Appropriate Patient Orientation: Person, Place, Time and Situation Level of Consciousness: Alert Patient Behavior: Guarded, Passive, Anxious, Good Eye Contact and Crying Mood Description: Depressed Affect Description: Flat Patient Cognition Impaired: No Ability to Follow Directions: Fair Speech Pattern: Spontaneous Speech Memory Description: Intact Diagnostics Vital Signs (24Hr): Vital Signs - 24 hr 07/03/23 19:46 07/04/23 08:31 07/04/23 17:20 Temperature 97.4 F 98.1 F Pulse Rate 104 H 72 78 Respiratory Rate 16 16 Blood Pressure 100/62 93/54 L 95/57 L Pulse Oximetry 96 97 Oxygen Delivery Method Room Air Room Air BMI result Body Mass Index 26.0 Labs 07/03/23 07:42 07/03/23 07:42 Labs: Laboratory Results - last 48 hr 07/02/23 07/02/23 07/03/23 17:21 18:10 07:42 WBC 4.7 L RBC 4.85 Hgb 12.2 Hct 37.8 MCV 77.9 L MCH 25.2 L MCHC 32.3 RDW 16.5 H Plt Count 344 D MPV 10.0 Immature Gran % (Auto) 0.2 Neut % (Auto) 48.0 Lymph % (Auto) 38.5 [place] % (Auto) 8.1 Eos % (Auto) 4.3 H Baso % (Auto) 0.9 Lymph # (Auto) 1.8 [place] # (Auto) 0.4 Eos # (Auto) 0.2 Baso # (Auto) 0.0 Abs Immat Gran (auto) 0.01 Absolute Neuts (auto) 2.2 Absolute Nucleated RBC 0.000 Nucleated RBC % (auto) 0.0 Sodium 136 Potassium 4.0 Chloride 104 Carbon Dioxide 24 Anion Gap 12 BUN 12 Creatinine 0.75 Estim Creat Clear Calc 105.2 Estimated GFR > 60 Random Glucose 88 Calcium 9.1 Total Bilirubin 0.3 AST 26 ALT 18 Alkaline Phosphatase 107 Total Protein 7.7 Albumin 3.8 Dinorah species DNA Negative Chlam trachomat DNA PCR NOT DETECTED Gardnerella DNA Probe Negative N.gonorrhoeae DNA (PCR) NOT DETECTED Trichomonas DNA Probe Negative Imaging Radiology Impressions: ITS Impressions Knee X-Ray 06/11/23 15:53 IMPRESSION: 1. No acute findings. 2. Medullary femoral diaphyseal bone infarct. Cervical Spine CT 06/11/23 16:34 IMPRESSION: 1. No evidence of acute intracranial hemorrhage or edematous territorial infarction. 2. No evidence of acute fracture or traumatic subluxation of the cervical spine. 3. No evidence of acute fracture of the maxillofacial bones. 4. Small left parietal scalp hematoma. No associated osseous calvarial abnormalities. 5. Moderate maxillary odontogenic disease. Face CT 06/11/23 16:34 IMPRESSION: 1. No evidence of acute intracranial hemorrhage or edematous territorial infarction. 2. No evidence of acute fracture or traumatic subluxation of the cervical spine. 3. No evidence of acute fracture of the maxillofacial bones. 4. Small left parietal scalp hematoma. No associated osseous calvarial abnormalities. 5. Moderate maxillary odontogenic disease. Head CT 06/11/23 16:34 IMPRESSION: 1. No evidence of acute intracranial hemorrhage or edematous territorial infarction. 2. No evidence of acute fracture or traumatic subluxation of the cervical spine. 3. No evidence of acute fracture of the maxillofacial bones. 4. Small left parietal scalp hematoma. No associated osseous calvarial abnormalities. 5. Moderate maxillary odontogenic disease. Medications Medications Current Medications Al Hydroxide/Mg Hydroxide (Magnesium Hydrox/Alum Hydrox 30 Ml Oral.Susp) 30 ml PO Q6H PRN PRN Reason: Heartburn/Nausea Azithromycin (Azithromycin 250 Mg Tablet) 250 mg PO Q24H LASHA Stop: 07/08/23 09:00 Last Admin: 07/04/23 08:46 Dose: 250 mg Baclofen (Baclofen 10 Mg Tablet) 10 mg PO BID PRN PRN Reason: muscle aches Last Admin: 06/29/23 09:02 Dose: 10 mg Benzocaine (Throat Lozenge, Medicated Lozenge) 1 lozenge MUCOUS MEM Q2H PRN PRN Reason: Sore Throat Last Admin: 07/04/23 13:18 Dose: 1 lozenge Bisacodyl (Bisacodyl 5 Mg Tablet.Dr) 10 mg PO DAILY PRN PRN Reason: Constipation Last Admin: 06/29/23 11:43 Dose: 10 mg Buspirone HCl (Buspirone Hcl 10 Mg Tablet) 10 mg PO TID LASHA Last Admin: 07/04/23 15:02 Dose: 10 mg Capsaicin (Capsaicin 0.025% Cream 60 Gm Tube) 1 appl TOPICAL TID PRN; Protocol PRN Reason: Pain, Mild (Pain Scale 1-3) Last Admin: 06/26/23 12:11 Dose: 1 appl Clonidine HCl (Clonidine Hcl 0.1 Mg Tablet) 0.1 mg PO BEDTIME LASHA; Protocol Last Admin: 07/03/23 19:41 Dose: 0.1 mg Clonidine HCl (Clonidine Hcl 0.1 Mg Tablet) 0.1 mg PO Q6H PRN; Protocol PRN Reason: tachycardia/Anxiety Last Admin: 07/04/23 13:16 Dose: 0.1 mg Diphenhydramine HCl (Diphenhydramine Hcl 25 Mg Capsule) 50 mg PO BEDTIME LASHA Last Admin: 07/03/23 19:41 Dose: 50 mg Docusate Sodium (Docusate Sodium 100 Mg Capsule) 100 mg PO BID PRN PRN Reason: Constipation Escitalopram Oxalate (Escitalopram Oxalate 10 Mg Tablet) 10 mg PO DAILY LASHA Last Admin: 07/04/23 08:46 Dose: 10 mg Gabapentin (Gabapentin 300 Mg Capsule) 300 mg PO TID LASHA Last Admin: 07/04/23 15:02 Dose: 300 mg Guaifenesin (Guaifenesin La 600 Mg Tab.Er.12h) 600 mg PO BID PRN PRN Reason: Congestion Last Admin: 06/28/23 20:15 Dose: 600 mg Hydroxyzine HCl (Hydroxyzine Hcl 50 Mg Tablet) 50 mg PO TID PRN PRN Reason: Anxiety Last Admin: 07/04/23 17:51 Dose: 50 mg Lidocaine (Lidocaine 4 % Patch Adh..Patch) 1 patch TRANSDERMA DAILY [facility]; Protocol Last Admin: 07/04/23 11:04 Dose: 1 patch Magnesium Hydroxide (Milk Of Magnesia 30 Ml Oral.Susp) 30 ml PO DAILY PRN PRN Reason: Constipation Melatonin (Melatonin 3 Mg Tablet) 6 mg PO BEDTIME [facility] Last Admin: 07/03/23 19:41 Dose: 6 mg Methadone HCl (Methadone Hcl 20 Mg/2 Ml Oral.Conc) 60 mg PO DAILY [facility] Last Admin: 07/04/23 08:46 Dose: 60 mg Multi-Ingred Medicated Throat [place] (Throat [place], Medicated 177 Ml Bottle) 1 spray MUCOUS MEM Q2H PRN PRN Reason: Sore Throat Last Admin: 07/02/23 15:47 Dose: 1 spray Multivitamins/Vitamin C (Multivitamin Tablet) 1 tab PO DAILY [facility] Last Admin: 07/04/23 08:46 Dose: 1 tab Nicotine (Nicotine 21 Mg Patch.Td24) 21 mg TRANSDERMA DAILY [facility] Last Admin: 07/04/23 11:04 Dose: 21 mg Nicotine Polacrilex (Nicotine Polacrilex 2 Mg Gum) 2 mg BUCCAL Q2H PRN PRN Reason: Nicotine Cravings Last Admin: 07/04/23 13:16 Dose: 2 mg Bio Oil Skincare Oil 1 each TOPICAL BID PRN PRN Reason: facial/nasal scars Last Admin: 07/03/23 20:27 Dose: 1 each Culturelle 1 cap PO DAILY [facility] Last Admin: 07/04/23 08:47 Dose: 1 cap Olanzapine (Olanzapine 5 Mg Tablet) 5 mg PO BID [facility] Last Admin: 07/04/23 08:46 Dose: 5 mg Quetiapine Fumarate (Quetiapine Fumarate 100 Mg Tablet) 100 mg PO BEDTIME PRN PRN Reason: sleep Last Admin: 07/03/23 19:41 Dose: 100 mg Saliva Substitute (Dry Mouth [place] 60 Ml [place]) 1 spray MUCOUS MEM Q2H PRN PRN Reason: Dry Mouth Last Admin: 07/04/23 11:04 Dose: 1 spray Senna (Sennosides 8.6 Mg Tablet) 17.2 mg PO BEDTIME [facility] Last Admin: 07/03/23 19:41 Dose: 17.2 mg Allergies Allergies Allergy/AdvReac Type Severity Reaction Status Date / Time Penicillins [PENICILLINS] Allergy Severe ANAPHYLAXIS Verified 06/11/23 14:46 soap [SOAP] Allergy Intermediate ITCHING Verified 06/11/23 14:46 aspirin [ASA] Allergy Unknown ANAPHYLAXIS Verified 06/11/23 14:46 cat dander [cats] Allergy Unknown moderately Verified 06/11/23 14:46 severe latex [LATEX] Allergy Unknown ANAPHYLAXIS Verified 06/11/23 14:46 tramadol [TRAMADOL] Allergy Unknown HIVES, Rash Verified 06/11/23 14:46 acetaminophen [From Tylenol] Allergy Hives Verified 06/11/23 14:46 squid Allergy Unknown Verified 06/18/23 17:56 trazodone AdvReac Severe restless Verified 06/15/23 10:45 legs Assessment & Plan Assessment & Plan (1) MDD (major depressive disorder), recurrent episode, moderate: Status: Acute Code(s): F33.1 - Major depressive disorder, recurrent, moderate (2) Opioid abuse: Status: Acute Code(s): F11.10 - Opioid abuse, uncomplicated (3) Polysubstance use disorder: Status: Acute Code(s): F19.90 - Other psychoactive substance use, unspecified, uncomplicated (4) Borderline personality disorder: Status: Acute Code(s): F60.3 - Borderline personality disorder Plan 32 yo female, hx of major depression, opiate and polysubstance use disorder, s/p relapse,fall. Recent detox where all of her psychotropics were stopped. 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 Plan: Increase Methadone to 35 mg today. 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 06/19 Patient reports that she remains quite depressed and very anxious. Wants help changing medications to deal with anxiety. Patient said that when she was last hospitalized her medications were different and she felt that she was doing better. Healthcare Customer Service reviewed history and patient would like to get back on Lexapro and BuSpar. She said she used to be on Ambien at nighttime however advertising writer discussed that this is unlikely the best option and she instead agrees to increase Seroquel at bedtime and during the day. -will hold off increasing Wellbutrin further since patient is complaining of trouble sleeping 1 ?continue?current?medication?regimen?other?than?having?added?extra?lidocaine ?patch continue Seroquel to 50 mg b.i.d 0900, 1400. (up from 25 mg b.i.d.) Continue?bedtime Seroquel to 100 mg q.h.s. for continued insomnia Added clonidine 0.1 mg q.h.s. for insomnia Continue Lexapro 5 mg which patient was on before and says was helpful Continue BuSpar 10 mg t.i.d. which patient was on before and says was helpful Continue Abilify 2 mg daily 06/21/23: Metronidazole 500 mg bid x 7 days. 06/24/23: Continue current regime and plan of care. 06/25/23: Increase Wellbutrin XL to 300 mg daily Increase Lexapro to 10 mg daily 06/26/23: no changes today 06/27/23: add PRN zofran, consider decreasing Wellbutrin if nausea persists 06/29/23: Continue current plan and regime. OCD education 06/30/23 Increase Lexapro to 20 mg daily 07/02/23 Pt reports plan to suicide on discharge to a peer. Informs team that she has been cheeking meds for ~7 days with intent to stockpile and overdose/suicide. Room search completed-no meds found-pt reports she has flushed them in the bathroom. States she fears giving truthful reports about her symptoms. Change to 5 minute checks Mouth checks Add 2 days to azithromycin Rx for full treatment of strep given recent med noncompliance Decrease Lexapro to 10 mg daily Decrease Gabapentin to 300 mg tid Discontinue Wellbutrin Zyprexa 5 mg bid Continue Seroquel 100 mg hs. Discontinue 100 mg tid For anxiety, buspirone, clonidine, gabapentin, olanzapine. Repeat diagnostics. 07/03/23 continue above treatment plan 07/04/23 continue treatmetn plan Reason for continued inpatient stay Substantial Risk for: harm to self, inability to function and rapid decompensation Time Spent With Patient Time: Total time managing care of this patient today ____ minutes.
[2023-07-04] MEDS: diphenhydrAMINE HCL 25 MG CAPSULE 50 MG PO (20:32)
[2023-07-04] MEDS: Sennosides 8.6 MG TABLET 17.2 MG PO (20:32)
[2023-07-04] MEDS: Melatonin 3 MG TABLET 6 MG PO (20:32)
[2023-07-04] MEDS: QUEtiapine Fumarate 100 MG TABLET PO (20:33)
[2023-07-05 08:30] VITALS: BP 99/57; PULSE 81; RESP 16; TEMP 37.3; O2SAT 96
[2023-07-05] MEDS: busPIRone HCl 10 MG TABLET PO ×3 (09:44→20:22)
[2023-07-05] MEDS: Azithromycin 250 MG TABLET PO (09:44)
[2023-07-05] MEDS: Multivitamin TABLET 1 TAB PO (09:45)
[2023-07-05] MEDS: methADONE HCl 20 MG/2 ML ORAL.CONC 60 MG PO (09:45)
[2023-07-05] MEDS: OLANZapine 5 MG TABLET PO (09:45)
[2023-07-05] MEDS: Gabapentin 300 MG CAPSULE PO (09:45)
[2023-07-05] MEDS: Escitalopram Oxalate 10 MG TABLET PO (09:45)
[2023-07-05] MEDS: Nicotine 21 MG PATCH.TD24 TRANSDERMA (09:47)
[2023-07-05] MEDS: CULTURELLE 1 EACH PO (09:51)
[2023-07-05] MEDS: cloNIDine HCL 0.1 MG TABLET PO ×3 (11:31→20:25)
[2023-07-05 11:32] VITALS: BP 100/70
[2023-07-05] MEDS: Nicotine Polacrilex 2 MG GUM BUCCAL (13:11)
[2023-07-05] MEDS: hydrOXYzine HCL 50 MG TABLET PO ×2 (13:11→18:58)
[2023-07-05] MEDS: Throat Lozenge, Medicated LOZENGE 1 LOZENGE MUCOUS MEM (13:11)
--- NOTE | 2023-07-05 14:21 | P.PNPSI_ITS ---
Subjective Subjective Date of Service: 07/05/23 Reason For Visit: recurrent major depression; opiate/ cocain use d/o Subjective Notes: Conditional Voluntary and 3 Day Healthcare Proxy: No Guardianship: No Medical Problems Affecting Mental Status: No Interim History: Team reports pt remains on five minute checks. Reports anxiety 6, depression 4. Quiet and isolative per team report over the weekend. Pt met with yony and Jarrett PERSAUD. She reports filing a three day notice and asks for discharge on Wed. 07/07. She declines our request to contact her mother, sister or health coach. She asks that her Gabapentin be increased and Olanzapine discontinued and Seroquel returned. She requests a Methadone Clinic change in site. [facility]. She denies SI, plan or intent, however is blunted and disconnected from our conversation today. Team also reports friendship with former pt who was visiting regularly, calling regularly, has ceased. She has interest in respite, although was declined today due to her behaviors last week with stock piling medications. We will re-present on 07/07 for potential admission. Medication Compliance: Yes (mouth checks) Side effects from medications: No Attending Groups: No Review of Systems Acute medical concerns: No Medical Review of Systems: unchanged Mental Status Exam Mental Status Exam Patient Appearance: Appropriate Patient Orientation: Person, Place, Time and Situation Level of Consciousness: Alert Patient Behavior: Guarded, Passive, Anxious and Good Eye Contact Mood Description: Depressed Affect Description: Flat Patient Cognition Impaired: No Ability to Follow Directions: Fair Speech Pattern: Spontaneous Speech Memory Description: Intact Hallucinations: None Delusions: Not Present Thought Process: Rumination Thought Content: positive for Circumstantial, positive for Perseveration and positive for Suicidal Ideation (denies) Depressive Symptoms: Increased Anxiety, Unhappiness and Low Self Esteem Judgement: Fair Diagnostics Vital Signs (24Hr): Vital Signs - 24 hr 07/04/23 17:20 07/05/23 08:30 07/05/23 11:32 Temperature 98.1 F 99.1 F Pulse Rate 78 81 Respiratory Rate 16 16 Blood Pressure 95/57 L 99/57 L 100/70 Pulse Oximetry 97 96 Oxygen Delivery Method Room Air Room Air BMI result Body Mass Index 26.0 Labs 07/03/23 07:42 07/03/23 07:42 Imaging Radiology Impressions: ITS Impressions Knee X-Ray 06/11/23 15:53 IMPRESSION: 1. No acute findings. 2. Medullary femoral diaphyseal bone infarct. Cervical Spine CT 06/11/23 16:34 IMPRESSION: 1. No evidence of acute intracranial hemorrhage or edematous territorial infarction. 2. No evidence of acute fracture or traumatic subluxation of the cervical spine. 3. No evidence of acute fracture of the maxillofacial bones. 4. Small left parietal scalp hematoma. No associated osseous calvarial abnormalities. 5. Moderate maxillary odontogenic disease. Face CT 06/11/23 16:34 IMPRESSION: 1. No evidence of acute intracranial hemorrhage or edematous territorial infarction. 2. No evidence of acute fracture or traumatic subluxation of the cervical spine. 3. No evidence of acute fracture of the maxillofacial bones. 4. Small left parietal scalp hematoma. No associated osseous calvarial abnormalities. 5. Moderate maxillary odontogenic disease. Head CT 06/11/23 16:34 IMPRESSION: 1. No evidence of acute intracranial hemorrhage or edematous territorial infarction. 2. No evidence of acute fracture or traumatic subluxation of the cervical spine. 3. No evidence of acute fracture of the maxillofacial bones. 4. Small left parietal scalp hematoma. No associated osseous calvarial abnormalities. 5. Moderate maxillary odontogenic disease. Medications Medications Current Medications Al Hydroxide/Mg Hydroxide (Magnesium Hydrox/Alum Hydrox 30 Ml Oral.Susp) 30 ml PO Q6H PRN PRN Reason: Heartburn/Nausea Azithromycin (Azithromycin 250 Mg Tablet) 250 mg PO Q24H [facility] Stop: 07/08/23 09:00 Last Admin: 07/05/23 09:44 Dose: 250 mg Baclofen (Baclofen 10 Mg Tablet) 10 mg PO BID PRN PRN Reason: muscle aches Last Admin: 06/29/23 09:02 Dose: 10 mg Benzocaine (Throat Lozenge, Medicated Lozenge) 1 lozenge MUCOUS MEM Q2H PRN PRN Reason: Sore Throat Last Admin: 07/05/23 13:11 Dose: 1 lozenge Bisacodyl (Bisacodyl 5 Mg Tablet.Dr) 10 mg PO DAILY PRN PRN Reason: Constipation Last Admin: 06/29/23 11:43 Dose: 10 mg Buspirone HCl (Buspirone Hcl 10 Mg Tablet) 10 mg PO TID [facility] Last Admin: 07/05/23 09:44 Dose: 10 mg Capsaicin (Capsaicin 0.025% Cream 60 Gm Tube) 1 appl TOPICAL TID PRN; Protocol PRN Reason: Pain, Mild (Pain Scale 1-3) Last Admin: 06/26/23 12:11 Dose: 1 appl Clonidine HCl (Clonidine Hcl 0.1 Mg Tablet) 0.1 mg PO BEDTIME LASHA; Protocol Last Admin: 07/04/23 20:32 Dose: 0.1 mg Clonidine HCl (Clonidine Hcl 0.1 Mg Tablet) 0.1 mg PO Q6H PRN; Protocol PRN Reason: tachycardia/Anxiety Last Admin: 07/05/23 11:31 Dose: 0.1 mg Diphenhydramine HCl (Diphenhydramine Hcl 25 Mg Capsule) 50 mg PO BEDTIME LASHA Last Admin: 07/04/23 20:32 Dose: 50 mg Docusate Sodium (Docusate Sodium 100 Mg Capsule) 100 mg PO BID PRN PRN Reason: Constipation Escitalopram Oxalate (Escitalopram Oxalate 10 Mg Tablet) 10 mg PO DAILY [facility] Last Admin: 07/05/23 09:45 Dose: 10 mg Gabapentin (Gabapentin 400 Mg Capsule) 400 mg PO TID [facility] Guaifenesin (Guaifenesin La 600 Mg Tab.Er.12h) 600 mg PO BID PRN PRN Reason: Congestion Last Admin: 06/28/23 20:15 Dose: 600 mg Hydroxyzine HCl (Hydroxyzine Hcl 50 Mg Tablet) 50 mg PO TID PRN PRN Reason: Anxiety Last Admin: 07/05/23 13:11 Dose: 50 mg Lidocaine (Lidocaine 4 % Patch Adh..Patch) 1 patch TRANSDERMA DAILY [facility]; Protocol Last Admin: 07/05/23 09:48 Dose: Not Given Magnesium Hydroxide (Milk Of Magnesia 30 Ml Oral.Susp) 30 ml PO DAILY PRN PRN Reason: Constipation Melatonin (Melatonin 3 Mg Tablet) 6 mg PO BEDTIME [facility] Last Admin: 07/04/23 20:32 Dose: 6 mg Methadone HCl (Methadone Hcl 20 Mg/2 Ml Oral.Conc) 60 mg PO DAILY [facility] Last Admin: 07/05/23 09:45 Dose: 60 mg Multi-Ingred Medicated Throat Codorus (Throat Codorus, Medicated 177 Ml Bottle) 1 spray MUCOUS MEM Q2H PRN PRN Reason: Sore Throat Last Admin: 07/02/23 15:47 Dose: 1 spray Multivitamins/Vitamin C (Multivitamin Tablet) 1 tab PO DAILY [facility] Last Admin: 07/05/23 09:45 Dose: 1 tab Nicotine (Nicotine 21 Mg Patch.Td24) 21 mg TRANSDERMA DAILY [facility] Last Admin: 07/05/23 09:47 Dose: 21 mg Nicotine Polacrilex (Nicotine Polacrilex 2 Mg Gum) 2 mg BUCCAL Q2H PRN PRN Reason: Nicotine Cravings Last Admin: 07/05/23 13:11 Dose: 2 mg Bio Oil Skincare Oil 1 each TOPICAL BID PRN PRN Reason: facial/nasal scars Last Admin: 07/03/23 20:27 Dose: 1 each Culturelle 1 cap PO DAILY [facility] Last Admin: 07/05/23 09:51 Dose: 1 cap Quetiapine Fumarate (Quetiapine Fumarate 100 Mg Tablet) 100 mg PO BEDTIME PRN PRN Reason: sleep Last Admin: 07/04/23 20:33 Dose: 100 mg Quetiapine Fumarate (Quetiapine Fumarate 50 Mg Tablet) 50 mg PO TID [facility] Quetiapine Fumarate (Quetiapine Fumarate 100 Mg Tablet) 100 mg PO BEDTIME [facility] Saliva Substitute (Dry Mouth Codorus 60 Ml Codorus) 1 spray MUCOUS MEM Q2H PRN PRN Reason: Dry Mouth Last Admin: 07/04/23 11:04 Dose: 1 spray Senna (Sennosides 8.6 Mg Tablet) 17.2 mg PO BEDTIME [facility] Last Admin: 07/04/23 20:32 Dose: 17.2 mg Allergies Allergies Allergy/AdvReac Type Severity Reaction Status Date / Time Penicillins [PENICILLINS] Allergy Severe ANAPHYLAXIS Verified 06/11/23 14:46 soap [SOAP] Allergy Intermediate ITCHING Verified 06/11/23 14:46 aspirin [ASA] Allergy Unknown ANAPHYLAXIS Verified 06/11/23 14:46 cat dander [cats] Allergy Unknown moderately Verified 06/11/23 14:46 severe latex [LATEX] Allergy Unknown ANAPHYLAXIS Verified 06/11/23 14:46 tramadol [TRAMADOL] Allergy Unknown HIVES, Rash Verified 06/11/23 14:46 acetaminophen [From Tylenol] Allergy Hives Verified 06/11/23 14:46 squid Allergy Unknown Verified 06/18/23 17:56 trazodone AdvReac Severe restless Verified 06/15/23 10:45 legs Assessment & Plan Assessment & Plan (1) MDD (major depressive disorder), recurrent episode, moderate: Status: Acute Code(s): F33.1 - Major depressive disorder, recurrent, moderate (2) Opioid abuse: Status: Acute Code(s): F11.10 - Opioid abuse, uncomplicated (3) Polysubstance use disorder: Status: Acute Code(s): F19.90 - Other psychoactive substance use, unspecified, uncomplicated (4) Borderline personality disorder: Status: Acute Code(s): F60.3 - Borderline personality disorder Plan 32 yo female, hx of major depression, opiate and polysubstance use disorder, s/p relapse,fall. Recent detox where all of her psychotropics were stopped. 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 Plan: Increase Methadone to 35 mg today. 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 06/19 Patient reports that she remains quite depressed and very anxious. Wants help changing medications to deal with anxiety. Patient said that when she was last hospitalized her medications were different and she felt that she was doing better. Card Feeder reviewed history and patient would like to get back on Lexapro and BuSpar. She said she used to be on Ambien at nighttime however mortgage underwriter discussed that this is unlikely the best option and she instead agrees to increase Seroquel at bedtime and during the day. -will hold off increasing Wellbutrin further since patient is complaining of trouble sleeping 1 ?continue?current?medication?regimen?other?than?having?added?extra?lidocaine ?patch continue Seroquel to 50 mg b.i.d 0900, 1400. (up from 25 mg b.i.d.) Continue?bedtime Seroquel to 100 mg q.h.s. for continued insomnia Added clonidine 0.1 mg q.h.s. for insomnia Continue Lexapro 5 mg which patient was on before and says was helpful Continue BuSpar 10 mg t.i.d. which patient was on before and says was helpful Continue Abilify 2 mg daily 06/21/23: Metronidazole 500 mg bid x 7 days. 06/24/23: Continue current regime and plan of care. 06/25/23: Increase Wellbutrin XL to 300 mg daily Increase Lexapro to 10 mg daily 06/26/23: no changes today 06/27/23: add PRN zofran, consider decreasing Wellbutrin if nausea persists 06/29/23: Continue current plan and regime. OCD education 06/30/23 Increase Lexapro to 20 mg daily 07/02/23 Pt reports plan to suicide on discharge to a peer. Informs team that she has been cheeking meds for ~7 days with intent to stockpile and overdose/suicide. Room search completed-no meds found-pt reports she has flushed them in the bathroom. States she fears giving truthful reports about her symptoms. Change to 5 minute checks Mouth checks Add 2 days to azithromycin Rx for full treatment of strep given recent med noncompliance Decrease Lexapro to 10 mg daily Decrease Gabapentin to 300 mg tid Discontinue Wellbutrin Zyprexa 5 mg bid Continue Seroquel 100 mg hs. Discontinue 100 mg tid For anxiety, buspirone, clonidine, gabapentin, olanzapine. Repeat diagnostics. 07/03/23 continue above treatment plan 07/04/23 continue treatment plan 07/05/23 Discontinue scheduled Olanzapine, continue prn Olanzapine Seroquel 50 mg tid and 100 mg HS Increase Gabapentin to 400 mg tid Three day notice to 07/07. Will continue applications for [facility], CSS until that time and re- evaluate Patient educated on: therapeutic strategies and other (DBT Module on Distress Tolerance given to pt to review) Informed Consent: understands Reason for continued inpatient stay Substantial Risk for: harm to self Time Spent With Patient Time: Total time managing care of this patient today ____ minutes.
[2023-07-05] MEDS: Gabapentin 400 MG CAPSULE PO ×2 (14:26→20:25)
[2023-07-05] MEDS: QUEtiapine Fumarate 50 MG TABLET PO ×2 (14:26→20:26)
[2023-07-05 17:01] VITALS: BP 111/70; PULSE 80; RESP 16; TEMP 36.9; O2SAT 100
[2023-07-05] MEDS: QUEtiapine Fumarate 100 MG TABLET PO (20:25)
[2023-07-05] MEDS: diphenhydrAMINE HCL 25 MG CAPSULE 50 MG PO (20:25)
[2023-07-05] MEDS: Melatonin 3 MG TABLET 6 MG PO (20:25)
[2023-07-05] MEDS: Sennosides 8.6 MG TABLET 17.2 MG PO (20:25)
[2023-07-06 08:00] VITALS: BP 95/65; PULSE 85; RESP 16; TEMP 36.8; O2SAT 97
[2023-07-06] MEDS: QUEtiapine Fumarate 50 MG TABLET PO ×3 (09:11→19:54)
[2023-07-06] MEDS: Multivitamin TABLET 1 TAB PO (09:11)
[2023-07-06] MEDS: Azithromycin 250 MG TABLET PO (09:11)
[2023-07-06] MEDS: Escitalopram Oxalate 10 MG TABLET PO (09:11)
[2023-07-06] MEDS: Gabapentin 400 MG CAPSULE PO ×3 (09:11→19:52)
[2023-07-06] MEDS: methADONE HCl 20 MG/2 ML ORAL.CONC 60 MG PO (09:12)
[2023-07-06] MEDS: busPIRone HCl 10 MG TABLET PO ×3 (09:12→19:53)
[2023-07-06] MEDS: Lidocaine 4 % Patch ADH..PATCH 1 PATCH TRANSDERMA (11:27)
[2023-07-06] MEDS: Nicotine 21 MG PATCH.TD24 TRANSDERMA (11:27)
[2023-07-06] MEDS: CULTURELLE 1 EACH PO (11:27)
[2023-07-06 13:00] VITALS: BP 106/69
[2023-07-06] MEDS: cloNIDine HCL 0.1 MG TABLET PO ×2 (13:00→18:56)
[2023-07-06] MEDS: Nicotine Polacrilex 2 MG GUM BUCCAL ×2 (13:00→18:58)
[2023-07-06] MEDS: Throat Lozenge, Medicated LOZENGE 1 LOZENGE MUCOUS MEM (13:00)
--- NOTE | 2023-07-06 15:13 | P.PNPSI_ITS ---
Subjective Subjective Date of Service: 07/06/23 Reason For Visit: recurrent major depression; opiate/ cocain use d/o Subjective Notes: Conditional Voluntary and 3 Day Healthcare Proxy: No Guardianship: No Medical Problems Affecting Mental Status: No Interim History: Three day notice to 07/07/23. Pt planning discharge. States she has secured a ride and housing with a female friend, and will be taken to lunch to celebrate her birthday. She asks that we not refer her to respite. Believes she is safe from ex-partner and is considering filing charges against him after she is settled. She plans to continue to call programs. She states she understands that recent unavailable programs are the norm, not specifically due to her circumstances. She gave this keno writer/runner her cell to follow up with lab results [phone]. She denies SI, plan or intent. She discussed needing to continue treatment as her children are with her mother and she needs to get back to her parenting role with them. She is aware that Dr. Ramirez will meet with her to review her plan and safety this evening. Medication Compliance: Yes Side effects from medications: No (denies) Attending Groups: Intermittent Review of Systems Acute medical concerns: No Review of Systems Review of Systems Yes all other systems are reviewed and are negative Mental Status Exam Mental Status Exam Patient Appearance: Appropriate Patient Orientation: Person, Place, Time and Situation Level of Consciousness: Alert Patient Behavior: Appropriate, Talkative, Cooperative and Good Eye Contact Mood Description: Appropriate Affect Description: Appropriate Patient Cognition Impaired: No Ability to Follow Directions: Good Speech Pattern: Spontaneous Speech Memory Description: Intact Hallucinations: None Delusions: Not Present Thought Process: Intact and Goal Oriented Thought Content: positive for Intact, positive for Goal Oriented and positive for Suicidal Ideation (denies) Judgement: Good Diagnostics Vital Signs (24Hr): Vital Signs - 24 hr 07/05/23 17:01 07/06/23 08:00 07/06/23 13:00 Temperature 98.4 F 98.2 F Pulse Rate 80 85 Respiratory Rate 16 16 Blood Pressure 111/70 95/65 106/69 Pulse Oximetry 100 97 Oxygen Delivery Method Room Air Room Air BMI result Body Mass Index 26.0 Labs 07/03/23 07:42 07/03/23 07:42 Imaging Radiology Impressions: ITS Impressions Knee X-Ray 06/11/23 15:53 IMPRESSION: 1. No acute findings. 2. Medullary femoral diaphyseal bone infarct. Cervical Spine CT 06/11/23 16:34 IMPRESSION: 1. No evidence of acute intracranial hemorrhage or edematous territorial infarction. 2. No evidence of acute fracture or traumatic subluxation of the cervical spine. 3. No evidence of acute fracture of the maxillofacial bones. 4. Small left parietal scalp hematoma. No associated osseous calvarial abnormalities. 5. Moderate maxillary odontogenic disease. Face CT 06/11/23 16:34 IMPRESSION: 1. No evidence of acute intracranial hemorrhage or edematous territorial infarction. 2. No evidence of acute fracture or traumatic subluxation of the cervical spine. 3. No evidence of acute fracture of the maxillofacial bones. 4. Small left parietal scalp hematoma. No associated osseous calvarial abnormalities. 5. Moderate maxillary odontogenic disease. Head CT 06/11/23 16:34 IMPRESSION: 1. No evidence of acute intracranial hemorrhage or edematous territorial infarction. 2. No evidence of acute fracture or traumatic subluxation of the cervical spine. 3. No evidence of acute fracture of the maxillofacial bones. 4. Small left parietal scalp hematoma. No associated osseous calvarial abnormalities. 5. Moderate maxillary odontogenic disease. Medications Medications Current Medications Al Hydroxide/Mg Hydroxide (Magnesium Hydrox/Alum Hydrox 30 Ml Oral.Susp) 30 ml PO Q6H PRN PRN Reason: Heartburn/Nausea Azithromycin (Azithromycin 250 Mg Tablet) 250 mg PO Q24H [facility] Stop: 07/08/23 09:00 Last Admin: 07/06/23 09:11 Dose: 250 mg Baclofen (Baclofen 10 Mg Tablet) 10 mg PO BID PRN PRN Reason: muscle aches Last Admin: 06/29/23 09:02 Dose: 10 mg Benzocaine (Throat Lozenge, Medicated Lozenge) 1 lozenge MUCOUS MEM Q2H PRN PRN Reason: Sore Throat Last Admin: 07/06/23 13:00 Dose: 1 lozenge Bisacodyl (Bisacodyl 5 Mg Tablet.Dr) 10 mg PO DAILY PRN PRN Reason: Constipation Last Admin: 06/29/23 11:43 Dose: 10 mg Buspirone HCl (Buspirone Hcl 10 Mg Tablet) 10 mg PO TID [facility] Last Admin: 07/06/23 14:42 Dose: 10 mg Capsaicin (Capsaicin 0.025% Cream 60 Gm Tube) 1 appl TOPICAL TID PRN; Protocol PRN Reason: Pain, Mild (Pain Scale 1-3) Last Admin: 06/26/23 12:11 Dose: 1 appl Clonidine HCl (Clonidine Hcl 0.1 Mg Tablet) 0.1 mg PO BEDTIME LASHA; Protocol Last Admin: 07/05/23 20:25 Dose: 0.1 mg Clonidine HCl (Clonidine Hcl 0.1 Mg Tablet) 0.1 mg PO Q6H PRN; Protocol PRN Reason: tachycardia/Anxiety Last Admin: 07/06/23 13:00 Dose: 0.1 mg Diphenhydramine HCl (Diphenhydramine Hcl 25 Mg Capsule) 50 mg PO BEDTIME LASHA Last Admin: 07/05/23 20:25 Dose: 50 mg Docusate Sodium (Docusate Sodium 100 Mg Capsule) 100 mg PO BID PRN PRN Reason: Constipation Escitalopram Oxalate (Escitalopram Oxalate 10 Mg Tablet) 10 mg PO DAILY [facility] Last Admin: 07/06/23 09:11 Dose: 10 mg Gabapentin (Gabapentin 400 Mg Capsule) 400 mg PO TID LASHA Last Admin: 07/06/23 14:43 Dose: 400 mg Guaifenesin (Guaifenesin La 600 Mg Tab.Er.12h) 600 mg PO BID PRN PRN Reason: Congestion Last Admin: 06/28/23 20:15 Dose: 600 mg Hydroxyzine HCl (Hydroxyzine Hcl 50 Mg Tablet) 50 mg PO TID PRN PRN Reason: Anxiety Last Admin: 07/05/23 18:58 Dose: 50 mg Lidocaine (Lidocaine 4 % Patch Adh..Patch) 1 patch TRANSDERMA DAILY LASHA; Protocol Last Admin: 07/06/23 11:27 Dose: 1 patch Magnesium Hydroxide (Milk Of Magnesia 30 Ml Oral.Susp) 30 ml PO DAILY PRN PRN Reason: Constipation Melatonin (Melatonin 3 Mg Tablet) 6 mg PO BEDTIME LASHA Last Admin: 07/05/23 20:25 Dose: 6 mg Methadone HCl (Methadone Hcl 20 Mg/2 Ml Oral.Conc) 60 mg PO DAILY LASHA Last Admin: 07/06/23 09:12 Dose: 60 mg Multi-Ingred Medicated Throat [place] (Throat [place], Medicated 177 Ml Bottle) 1 spray MUCOUS MEM Q2H PRN PRN Reason: Sore Throat Last Admin: 07/02/23 15:47 Dose: 1 spray Multivitamins/Vitamin C (Multivitamin Tablet) 1 tab PO DAILY [facility] Last Admin: 07/06/23 09:11 Dose: 1 tab Nicotine (Nicotine 21 Mg Patch.Td24) 21 mg TRANSDERMA DAILY [facility] Last Admin: 07/06/23 11:27 Dose: 21 mg Nicotine Polacrilex (Nicotine Polacrilex 2 Mg Gum) 2 mg BUCCAL Q2H PRN PRN Reason: Nicotine Cravings Last Admin: 07/06/23 13:00 Dose: 2 mg Bio Oil Skincare Oil 1 each TOPICAL BID PRN PRN Reason: facial/nasal scars Last Admin: 07/06/23 11:02 Dose: 1 each Culturelle 1 cap PO DAILY [facility] Last Admin: 07/06/23 11:27 Dose: 1 cap Quetiapine Fumarate (Quetiapine Fumarate 100 Mg Tablet) 100 mg PO BEDTIME PRN PRN Reason: sleep Last Admin: 07/04/23 20:33 Dose: 100 mg Quetiapine Fumarate (Quetiapine Fumarate 50 Mg Tablet) 50 mg PO TID [facility] Last Admin: 07/06/23 14:42 Dose: 50 mg Quetiapine Fumarate (Quetiapine Fumarate 100 Mg Tablet) 100 mg PO BEDTIME [facility] Last Admin: 07/05/23 20:25 Dose: 100 mg Saliva Substitute (Dry Mouth Malta 60 Ml Malta) 1 spray MUCOUS MEM Q2H PRN PRN Reason: Dry Mouth Last Admin: 07/04/23 11:04 Dose: 1 spray Senna (Sennosides 8.6 Mg Tablet) 17.2 mg PO BEDTIME [facility] Last Admin: 07/05/23 20:25 Dose: 17.2 mg Allergies Allergies Allergy/AdvReac Type Severity Reaction Status Date / Time Penicillins [PENICILLINS] Allergy Severe ANAPHYLAXIS Verified 06/11/23 14:46 soap [SOAP] Allergy Intermediate ITCHING Verified 06/11/23 14:46 aspirin [ASA] Allergy Unknown ANAPHYLAXIS Verified 06/11/23 14:46 cat dander [cats] Allergy Unknown moderately Verified 06/11/23 14:46 severe latex [LATEX] Allergy Unknown ANAPHYLAXIS Verified 06/11/23 14:46 tramadol [TRAMADOL] Allergy Unknown HIVES, Rash Verified 06/11/23 14:46 acetaminophen [From Tylenol] Allergy Hives Verified 06/11/23 14:46 squid Allergy Unknown Verified 06/18/23 17:56 trazodone AdvReac Severe restless Verified 06/15/23 10:45 legs Assessment & Plan Assessment & Plan (1) MDD (major depressive disorder), recurrent episode, moderate: Status: Acute Code(s): F33.1 - Major depressive disorder, recurrent, moderate (2) Opioid abuse: Status: Acute Code(s): F11.10 - Opioid abuse, uncomplicated (3) Polysubstance use disorder: Status: Acute Code(s): F19.90 - Other psychoactive substance use, unspecified, uncomplicated (4) Borderline personality disorder: Status: Acute Code(s): F60.3 - Borderline personality disorder Plan 32 yo female, hx of major depression, opiate and polysubstance use disorder, s/p relapse,fall. Recent detox where all of her psychotropics were stopped. Pt verbalized SI in the ER [facility] IN. Plan: Increase Methadone to 35 mg today. 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 06/19 Patient reports that she remains quite depressed and very anxious. Wants help changing medications to deal with anxiety. Patient said that when she was last hospitalized her medications were different and she felt that she was doing better. [facility]man reviewed history and patient would like to get back on Lexapro and BuSpar. She said she used to be on Ambien at nighttime however keno writer/runner discussed that this is unlikely the best option and she instead agrees to increase Seroquel at bedtime and during the day. -will hold off increasing Wellbutrin further since patient is complaining of trouble sleeping 1 ?continue?current?medication?regimen?other?than?having?added?extra?lidocaine ?patch continue Seroquel to 50 mg b.i.d 0900, 1400. (up from 25 mg b.i.d.) Continue?bedtime Seroquel to 100 mg q.h.s. for continued insomnia Added clonidine 0.1 mg q.h.s. for insomnia Continue Lexapro 5 mg which patient was on before and says was helpful Continue BuSpar 10 mg t.i.d. which patient was on before and says was helpful Continue Abilify 2 mg daily 06/21/23: Metronidazole 500 mg bid x 7 days. 06/24/23: Continue current regime and plan of care. 06/25/23: Increase Wellbutrin XL to 300 mg daily Increase Lexapro to 10 mg daily 06/26/23: no changes today 06/27/23: add PRN zofran, consider decreasing Wellbutrin if nausea persists 06/29/23: Continue current plan and regime. OCD education 06/30/23 Increase Lexapro to 20 mg daily 07/02/23 Pt reports plan to suicide on discharge to a peer. Informs team that she has been cheeking meds for ~7 days with intent to stockpile and overdose/suicide. Room search completed-no meds found-pt reports she has flushed them in the bathroom. States she fears giving truthful reports about her symptoms. Change to 5 minute checks Mouth checks Add 2 days to azithromycin Rx for full treatment of strep given recent med noncompliance Decrease Lexapro to 10 mg daily Decrease Gabapentin to 300 mg tid Discontinue Wellbutrin Zyprexa 5 mg bid Continue Seroquel 100 mg hs. Discontinue 100 mg tid For anxiety, buspirone, clonidine, gabapentin, olanzapine. Repeat diagnostics. 07/03/23 continue above treatment plan 07/04/23 continue treatment plan 07/05/23 Discontinue scheduled Olanzapine, continue prn Olanzapine Seroquel 50 mg tid and 100 mg HS Increase Gabapentin to 400 mg tid Three day notice to 07/07. Will continue applications for [facility], [facility] until that time and re- evaluate 07/06/23 Increase Seroquel to 100 mg tid Discharge 07/07/23. Patient educated on: medication risk/benefits and therapeutic strategies Informed Consent: understands Reason for continued inpatient stay Substantial Risk for: rapid decompensation Time Spent With Patient Time: Total time managing care of this patient today ____ minutes.
[2023-07-06] MEDS: hydrOXYzine HCL 50 MG TABLET PO (15:53)
[2023-07-06 18:55] VITALS: BP 104/65; PULSE 77
[2023-07-06] MEDS: Melatonin 3 MG TABLET 6 MG PO (19:53)
[2023-07-06] MEDS: diphenhydrAMINE HCL 25 MG CAPSULE 50 MG PO (19:53)
[2023-07-06] MEDS: QUEtiapine Fumarate 100 MG TABLET PO (19:53)
[2023-07-06] MEDS: Sennosides 8.6 MG TABLET 17.2 MG PO (19:54)
[2023-07-06 19:58] VITALS: BP 101/65
[2023-07-07] MEDS: Azithromycin 250 MG TABLET PO (08:07)
[2023-07-07] MEDS: Multivitamin TABLET 1 TAB PO (08:07)
[2023-07-07] MEDS: busPIRone HCl 10 MG TABLET PO (08:07)
[2023-07-07] MEDS: Escitalopram Oxalate 10 MG TABLET PO (08:07)
[2023-07-07] MEDS: QUEtiapine Fumarate 50 MG TABLET PO (08:07)
[2023-07-07] MEDS: Gabapentin 400 MG CAPSULE PO (08:07)
[2023-07-07] MEDS: methADONE HCl 20 MG/2 ML ORAL.CONC 60 MG PO (08:07)
[2023-07-07] MEDS: CULTURELLE 1 EACH PO (09:24)
[2023-07-07 09:31] VITALS: BP 120/60; PULSE 73; RESP 16; TEMP 36.8; O2SAT 98
[2023-07-07 09:55] VITALS: BP 132/63; PULSE 88
[2023-07-07] MEDS: cloNIDine HCL 0.1 MG TABLET PO (10:00)
[2023-07-07] MEDS: hydrOXYzine HCL 50 MG TABLET PO (10:02)
--- NOTE | 2023-07-07 14:39 | P.DS_ITS ---
DS: Providers Provider Date of Service: 07/07/23 Date of admission: 06/14/23 16:27 Date of discharge: 07/07/23 Primary care physician: Unknown Physician Admitting clinician: Trang Albert Attending physician on admission: Samson Ramirez Attending physician on discharge: Samson Ramirez Discharging clinician: Trang Albert DS: Diagnosis Discharge Diagnosis (1) MDD (major depressive disorder), recurrent episode, moderate: Status: Acute (2) Opioid abuse: Status: Acute (3) Polysubstance use disorder: Status: Acute (4) Borderline personality disorder: Status: Acute DS: Medications Discharge Medications Home Medications: Previous Rx's Medication Instructions Recorded Culturelle 1 cap PO DAILY ##0 07/07/23 Patient Own Medication 1 ea topical BID PRN ##0 07/07/23 azithromycin 250 mg tablet 250 mg PO Q24H #4 tabs 07/07/23 buspirone 10 mg tablet 10 mg PO TID #21 tabs 07/07/23 clonidine HCl 0.1 mg tablet 0.1 mg PO BEDTIME #7 tabs 07/07/23 docusate sodium 100 mg capsule 100 mg PO BID PRN Constipation #30 07/07/23 caps escitalopram oxalate 10 mg tablet 10 mg PO DAILY #7 tabs 07/07/23 gabapentin 400 mg capsule 400 mg PO TID #21 caps 07/07/23 melatonin 3 mg tablet 6 mg (2 x 3 mg) PO BEDTIME #15 tabs 07/07/23 methadone 10 mg/mL oral 60 mg (6 mL) PO DAILY #0 mL 07/07/23 concentrate (Methadose) multivitamin (Daily-Alyssa tablet) 1 tab PO DAILY #30 tabs 07/07/23 nicotine (polacrilex) 2 mg gum 2 mg buccal Q2H PRN Nicotine 07/07/23 Cravings #100 ea nicotine 21 mg/24 hr daily 21 mg transdermal DAILY #30 ea 07/07/23 transdermal patch quetiapine 100 mg tablet (Seroquel) 100 mg PO TID #21 tabs 07/07/23 sennosides 8.6 mg tablet (Senna 17.2 mg (2 x 8.6 mg) PO BEDTIME 07/07/23 Lax) #15 tabs Mental Status Exam Mental Status Exam Patient Appearance: Appropriate Patient Orientation: Person, Place, Time and Situation Level of Consciousness: Alert Patient Behavior: Appropriate, Talkative, Cooperative and Good Eye Contact Mood Description: Appropriate Affect Description: Appropriate Patient Cognition Impaired: No Ability to Follow Directions: Good Speech Pattern: Spontaneous Speech Memory Description: Intact Hallucinations: None Delusions: Not Present Thought Process: Intact and Goal Oriented Thought Content: positive for Intact, positive for Goal Oriented and positive for Suicidal Ideation (denies) Judgement: Good Data Data Completed and Pending Completed studies during hospitalization [Text1]: 07/02/23 07/02/23 07/03/23 17:21 18:10 07:42 WBC 4.7 L RBC 4.85 Hgb 12.2 Hct 37.8 MCV 77.9 L MCH 25.2 L MCHC 32.3 RDW 16.5 H Plt Count 344 D MPV 10.0 Immature Gran % (Auto) 0.2 Neut % (Auto) 48.0 Lymph % (Auto) 38.5 [place] % (Auto) 8.1 Eos % (Auto) 4.3 H Baso % (Auto) 0.9 Lymph # (Auto) 1.8 [place] # (Auto) 0.4 Eos # (Auto) 0.2 Baso # (Auto) 0.0 Abs Immat Gran (auto) 0.01 Absolute Neuts (auto) 2.2 Absolute Nucleated RBC 0.000 Nucleated RBC % (auto) 0.0 Sodium 136 Potassium 4.0 Chloride 104 Carbon Dioxide 24 Anion Gap 12 BUN 12 Creatinine 0.75 Estim Creat Clear Calc 105.2 Estimated GFR > 60 Random Glucose 88 Calcium 9.1 Total Bilirubin 0.3 AST 26 ALT 18 Alkaline Phosphatase 107 Total Protein 7.7 Albumin 3.8 [place] species DNA Negative C. pneumoniae IgG Ab Pending C. pneumoniae IgA Ab Pending C. pneumoniae IgM Ab Pending C. pneumoniae Ab Interp Pending C. trachomatis IgG Ab Pending C. trachomatis IgA Ab Pending C. trachomatis IgM Ab Pending C.trachomatis Ab Interp Pending C. psittaci IgG Ab Pending C. psittaci IgA Ab Pending C. psittaci IgM Ab Pending C. psittaci Ab Interp Pending Chlam trachomat DNA PCR NOT DETECTED Gardnerella DNA Probe Negative N.gonorrhoeae DNA (PCR) NOT DETECTED Trichomonas DNA Probe Negative 06/28/23 14:38 Throat Throat Culture - Final Streptococcus group c Imaging Diagnostic Imaging Impressions Knee X-Ray 06/11/23 15:53 IMPRESSION: 1. No acute findings. 2. Medullary femoral diaphyseal bone infarct. Cervical Spine CT 06/11/23 16:34 IMPRESSION: 1. No evidence of acute intracranial hemorrhage or edematous territorial infarction. 2. No evidence of acute fracture or traumatic subluxation of the cervical spine. 3. No evidence of acute fracture of the maxillofacial bones. 4. Small left parietal scalp hematoma. No associated osseous calvarial abnormalities. 5. Moderate maxillary odontogenic disease. Face CT 06/11/23 16:34 IMPRESSION: 1. No evidence of acute intracranial hemorrhage or edematous territorial infarction. 2. No evidence of acute fracture or traumatic subluxation of the cervical spine. 3. No evidence of acute fracture of the maxillofacial bones. 4. Small left parietal scalp hematoma. No associated osseous calvarial abnormalities. 5. Moderate maxillary odontogenic disease. Head CT 06/11/23 16:34 IMPRESSION: 1. No evidence of acute intracranial hemorrhage or edematous territorial infarction. 2. No evidence of acute fracture or traumatic subluxation of the cervical spine. 3. No evidence of acute fracture of the maxillofacial bones. 4. Small left parietal scalp hematoma. No associated osseous calvarial abnormalities. 5. Moderate maxillary odontogenic disease. DS: Summary Hospital Course Hospital Course: Admission to adult psychiatry for exacerbation of recurrent major depression, opiate use disorder and cocaine use disorder. Pt reported SI with plan to OD. She reported a recent detox at [place] where her medications were held for one week. Upon discharge from [place] she began using 3 bundles daily- returning to her 4 year daily dosing. Pts medications were evaluated and initiated. Methadone was titrated. Referrals were made to several programs without availability. Pt signed a three day notice and made arrangements to stay with a friend. She will continue to contact programs for availability. Status at Discharge Functional status at discharge: independent ambulation Overall status at discharge: patient is progressing back to baseline Time Spent with Patient Time attestation: Total time managing care of this patient today ____ minutes. Time spent: Greater than 30 minutes Discharge Plan Discharge Anticipated Discharge Date/Time: 07/07/23 12:00 Patient Disposition: Xfer Other Discharge Diagnosis: Recurrent Major Depression Opiate Use Disorder, Methadone Maintenance Polysubstance Use Disorder Referrals: [facility] [Other] (Patient referred for substance abuse treatment. Patient currently on administrative review and unable to be admitted at this time.) ROSA ISELA BASS, MEDICATION PROVIDER [Other] - 08/06/23 9:00 am (TELEHEALTH) Therapy Intake: Rona Sosa ([facility]) [Other] - 07/14/23 10:00 am (Appointment is in person ) [facility] [Other] (Walk in if needed) [facility] [Other] (Referral to [facility] Patient unable to be admitted at this time as she will need to complete CSS program prior to her being considered for admission.) [facility] [Other] (Referral to [facility] for substance use treatment Patient may follow-up on referral after discharge ) [facility] [Other] (Referral to [facility] Patient may follow-up on referral after discharge ) [facility] ([place] [Other] ( Referral for [facility] Patient may follow-up on referral after discharge ) [facility] [Other] (Patient self referred to [facility] Patient should continue to follow-up on referral after discharge ) [facility] [Other] (Referral to [facility] for substance use treatment Patient should continue to follow-up on referral for substance use treatment after discharge ) [facility] [Other] (Referral for substance use treatment , CSS program [facility] Patient on wait list and should continue to follow-up on referral after discharge ) [facility] ([facility]) [facility] [Other] (Referral for Substance abuse ([facility]) program Patient is on wait list and should continue to follow-up on referral after discharge to secure treatment.) Discharge Medications: New clonidine HCl 0.1 mg Tablet 0.1 mg PO BEDTIME Qty: 7 4RF Protocol: Hold for SBP< HOLD for SBP < : 90 azithromycin 250 mg Tablet 250 mg PO Q24H Qty: 4 0RF nicotine (polacrilex) 2 mg Gum 2 mg buccal Q2H PRN (Reason: Nicotine Cravings) Qty: 100 0RF gabapentin 400 mg Capsule 400 mg PO TID Qty: 21 4RF buspirone 10 mg Tablet 10 mg PO TID Qty: 21 4RF nicotine 21 mg/24 hr Patch 24 Hour 21 mg transdermal DAILY Qty: 30 0RF escitalopram oxalate 10 mg Tablet 10 mg PO DAILY Qty: 7 0RF docusate sodium 100 mg Capsule 100 mg PO BID PRN (Reason: Constipation) Qty: 30 1RF multivitamin [Daily-Alyssa] Tablet 1 tab PO DAILY Qty: 30 0RF sennosides [Senna Lax] 8.6 mg Tablet 17.2 mg PO BEDTIME Qty: 15 1RF melatonin 3 mg Tablet 6 mg PO BEDTIME Qty: 15 1RF Culturelle 1 cap PO DAILY Qty: 0 0RF Patient Own Medication 1 ea topical BID PRNQty: 0 0RF quetiapine [Seroquel] 100 mg tablet 100 mg PO TID Qty: 21 4RF Discontinued Methadone Intensol 30 mg PO DAILY quetiapine 25 mg tablet 25 mg PO DAILY PRN (Reason: Anxiety) gabapentin 300 mg capsule 600 mg PO TID bupropion HCl 150 mg tablet extended release 24 hr 150 mg PO DAILY aripiprazole 2 mg tablet 2 mg PO BEDTIME quetiapine 50 mg tablet 50 mg PO BEDTIME No Action methadone [Methadose] 10 mg/mL concentrate 30 mg PO DAILY Rx Instructions: Partial Fill upon patient request. doxycycline hyclate 100 mg capsule 100 mg PO BID 7 Days Qty: 14 0RF prednisone 20 mg tablet 40 mg PO DAILY 5 Days Qty: 10 0RF ondansetron 4 mg tablet,disintegrating 4 mg PO Q8H PRN (Reason: nausea and vomiting) Qty: 20 0RF Discharge Orders: Discharge Order (Routine); Ordered 07/07/23 Ordered By: Trang Albert Diet: Advance to usual diet Activity on Discharge: As tolerated Stand Alone Forms: Patient Portal Discharge page, Community Support Care Plan Goals: Mood and Behavioral Stabilization Work on Sobriety Health Concerns: Mood and Behavioral Stabilization Work on Sobriety Plan of Treatment: Attend scheduled appointments Take medications as directed Continue to make connections with CSS Programs Work on Sobriety Assessment: Discharge per three day notice Pt plans to go to a friends home upon discharge to live. Discharge Date/Time: 07/07/23 11:18
[2023-07-08 17:29] LABS: Chlamydia Pneumoniae IgA <1:16 titer (<1:16); Chlamydia Pneumoniae IgG <1:64 titer (<1:64); Chlamydia Pneumoniae IgM <1:10 titer (<1:10); Chlamydia Psittaci IgA <1:16 titer (<1:16); Chlamydia Psittaci IgG <1:64 titer (<1:64); Chlamydia Psittaci IgM <1:10 titer (<1:10); Chlamydia Trachomatis IgA <1:16 titer (<1:16); Chlamydia Trachomatis IgG <1:64 titer (<1:64); Chlamydia Trachomatis IgM <1:10 titer (<1:10)
== END 2023-07-07 11:18 | disposition other institution (70) | DRG 751 ==
LOC: HO.ED 19:08 → HO.PM5 06-14 16:34
PROVIDERS: Nurse Practitioner Family; Admitting Provider Psychiatry & Neurology Psychiatry; Emergency Provider Internal Medicine; Visit Provider Clinical Nurse Specialist Psychiatric/Mental Health, Adult
DX: F33.1 Major depressive disorder, recurrent, moderate (principal); R45.851 Suicidal ideations; F11.20 Opioid dependence, uncomplicated; F17.210 Nicotine dependence, cigarettes, uncomplicated; J02.9 Acute pharyngitis, unspecified; F60.3 Borderline personality disorder; F19.90 Other psychoactive substance use, unspecified, uncomplicated; Z71.6 Tobacco abuse counseling; Z20.822 Contact with and (suspected) exposure to COVID-19; Z59.02 Unsheltered homelessness; Z91.51 Personal history of suicidal behavior; Z91.040 Latex allergy status; Z79.899 Other long term (current) drug therapy
CPT/HCPCS: 0353U; 36415; 70450; 70486; 72125; 73562; 80048; 80053; 80061; 80307; 81003; 81025; 82607; 82746; 83036; 83735; 84439; 84443; 84702; 85025; 86631; 86632; 86704; 86706; 86709; 86780; 86784; 86803; 87070; 87147; 87340; 87389; 87480; 87510; 87635; 87660; 93005; 99285; S9485

== ENCOUNTER → 2023-06-14 16:27 | Outpatient (BNV) | payer OTHER, SELFPAY | PROVIDERS: Admitting Provider Psychiatry & Neurology Psychiatry; Emergency Provider Internal Medicine; Visit Provider Clinical Nurse Specialist Psychiatric/Mental Health, Adult | DX: F60.3 Borderline personality disorder (principal); F33.1 Major depressive disorder, recurrent, moderate; F11.10 Opioid abuse, uncomplicated; F19.90 Other psychoactive substance use, unspecified, uncomplicated | CPT/HCPCS: 90792; 99231; 99232; 99239 ==

== ENCOUNTER 2023-07-08 09:56 | Emergency (ER) | payer OTHER, SELFPAY ==
--- NOTE | ~2023-07-08 | XR_ITS ---
EXAMINATION: XR CHEST CLINICAL INFORMATION: Cough COMPARISON: None available. TECHNIQUE: Frontal view of the chest was obtained. FINDINGS: Minor patchy interstitial infiltrates noted suspicious for pneumonia. Heart and pulmonary vessels normal. XR/XR chest 1V IMPRESSION: Query diffuse interstitial infiltrate. Recommend follow-up PA lateral when feasible.
[2023-07-08 10:01] VITALS: BP 114/77; PULSE 72; O2SAT 96; BMI 22.6
--- NOTE | 2023-07-08 10:05 | ED_ITS ---
HPI - Asthma General Chief Complaint: Dyspnea Stated Complaint: sob hx asthma sick x 2 days Time Seen by Provider: 07/08/23 09:58 Source: patient and old records reviewed Mode of arrival: EMS Limitations: no limitations History of Present Illness HPI Narrative: 33 yo female with PMH of asthma uses rescue inhaler no recent admits or steroids, IVDA just started injecting again 2 days ago, BPD here with c/o URI symptoms and diarrhea x 2 days was walking to sisters house when she started to wheeze and feel dyspneic. EMS noted 96% on RA and given duoneb. MD complaint: asthma attack , shortness of breath and wheezing Onset (ago): day(s) Severity: mild Context: recent URI Associated symptoms: dry cough Asthma History: childhood onset Treatments Prior to Arrival: inhaled bronchodilator Related Data Home Medications Medication Instructions Recorded Confirmed methadone 10 mg/mL oral 30 mg PO DAILY 07/08/23 07/08/23 concentrate (Methadose) Previous Rx's Medication Instructions Recorded Culturelle 1 cap PO DAILY ##0 07/07/23 Patient Own Medication 1 ea topical BID PRN ##0 07/07/23 azithromycin 250 mg tablet 250 mg PO Q24H #4 tabs 07/07/23 buspirone 10 mg tablet 10 mg PO TID #21 tabs 07/07/23 clonidine HCl 0.1 mg tablet 0.1 mg PO BEDTIME #7 tabs 07/07/23 docusate sodium 100 mg capsule 100 mg PO BID PRN Constipation #30 07/07/23 caps escitalopram oxalate 10 mg tablet 10 mg PO DAILY #7 tabs 07/07/23 gabapentin 400 mg capsule 400 mg PO TID #21 caps 07/07/23 melatonin 3 mg tablet 6 mg (2 x 3 mg) PO BEDTIME #15 tabs 07/07/23 multivitamin (Daily-Alyssa tablet) 1 tab PO DAILY #30 tabs 07/07/23 nicotine (polacrilex) 2 mg gum 2 mg buccal Q2H PRN Nicotine 07/07/23 Cravings #100 ea nicotine 21 mg/24 hr daily 21 mg transdermal DAILY #30 ea 07/07/23 transdermal patch quetiapine 100 mg tablet (Seroquel) 100 mg PO TID #21 tabs 07/07/23 sennosides 8.6 mg tablet (Senna 17.2 mg (2 x 8.6 mg) PO BEDTIME 07/07/23 Lax) #15 tabs doxycycline hyclate 100 mg capsule 100 mg PO BID 7 days #14 caps 07/08/23 ondansetron 4 mg disintegrating 4 mg PO Q8H PRN nausea and 07/08/23 tablet vomiting #20 tabs prednisone 20 mg tablet 40 mg (2 x 20 mg) PO DAILY 5 days 07/08/23 #10 tabs Allergies Allergy/AdvReac Type Severity Reaction Status Date / Time Penicillins [PENICILLINS] Allergy Severe ANAPHYLAXIS Verified 06/11/23 14:46 soap [SOAP] Allergy Intermediate ITCHING Verified 06/11/23 14:46 aspirin [ASA] Allergy Unknown ANAPHYLAXIS Verified 06/11/23 14:46 cat dander [cats] Allergy Unknown moderately Verified 06/11/23 14:46 severe latex [LATEX] Allergy Unknown ANAPHYLAXIS Verified 06/11/23 14:46 tramadol [TRAMADOL] Allergy Unknown HIVES, Rash Verified 06/11/23 14:46 acetaminophen [From Tylenol] Allergy Hives Verified 06/11/23 14:46 squid Allergy Unknown Verified 06/18/23 17:56 trazodone AdvReac Severe restless Verified 06/15/23 10:45 legs Review of Systems 2 Review of Systems: Constitutional : No Fever, No Chills ENT/Mouth : No Hoarseness, No sore throat, No Rhinorrhea Eyes: No Redness, No Discharge, No Vision Changes Cardiovascular : No Chest Pain, positive SOB, positive Dyspnea on Exertion, No Edema Respiratory : positive Cough, No Sputum, positive Wheezing, Gastrointestinal : pos Nausea, No Vomiting, pos Diarrhea, No abdominal Pain Genitourinary : No Dysuria, No Hematuria Musculoskeletal : No joint pain, No Myalgias Skin : No rash Neuro : No Weakness, No Numbness, No Headache Psych : No anxiety, depression Heme/Lymph: No Bruising, No Bleeding Endocrine : No Polyuria, No Polydipsia All other systems reviewed and are negative [facility] Past Medical History Attestation statement: The following information was validated with the patient. Source: old records reviewed Medical History Borderline personality disorder Polysubstance use disorder Abscess of left arm Left arm cellulitis Substance abuse Social History Social History Household Members: None Housing: Homeless Do you presently have visiting nurse or other home services: No Alcohol intake: current Alcohol intake frequency: holidays/special occasions only Alcohol type: wine Patient Tobacco Use Status: Current everyday Tobacco user Tobacco use type: Cigarette Cigarette Packs Per Day: 0.5 Cigarettes Per Day: 10.0 Smoked in Last 30 Days: Yes e-Cigarette/Vaping Use: Never Used Second Hand Smoke Exposure: No Use of substances other than those prescribed or required for medical reasons: No Substance Use Type: Heroin Advance Directives: No Advance Directives Information Provided: Yes Patient : No service: No Sexual orientation: Straight/Heterosexual Physical Exam 2 Vital Signs: Vital Signs: Last Vital Signs Temp 97.7 F 07/08/23 10:07 Pulse 78 07/08/23 10:22 Resp 16 07/08/23 10:22 BP 116/80 07/08/23 10:07 Pulse Ox 97 07/08/23 10:07 O2 Del Method Room Air 07/08/23 10:07 BMI result Body Mass Index 22.6 Appearance: Alert. Oriented X3. No acute distress. Eyes: Pupils equal, round and reactive to light. ENT: Pharynx normal. Neck: Normal inspection. Neck supple. CVS: Normal heart rate and rhythm. Pulses normal. Respiratory: No respiratory distress. Breath sounds very min end exp wheeze very faint Abdomen: Soft and nontender. Skin: Skin warm and dry. Normal skin color. Normal skin turgor. Extremities: No lower extremity edema. No calf ttp Neuro: Oriented X 3. No motor deficit. No sensory deficit. Course Course Course Narrative: saw CARE team plan is for DC Medications Administered Discontinued Medications Generic Name Dose Route Start Last Admin Trade Name Freq PRN Reason Stop Dose Admin Albuterol Sulfate 2.5 mg 07/08/23 10:19 07/08/23 10:21 Albuterol Sulfate (0.083%) 2.5 Mg/3 Ml Vial.Neb INHALE 07/08/23 10:20 2.5 mg ONCE ONE Administration Doxycycline Monohydrate 100 mg 07/08/23 11:09 07/08/23 11:20 Doxycycline Monohydrate 100 Mg Capsule PO 07/08/23 11:10 100 mg ONCE ONE Administration Methadone HCl 60 mg 07/08/23 10:34 07/08/23 10:50 Methadone Hcl 20 Mg/2 Ml Oral.Conc PO 07/08/23 10:35 60 mg ONCE ONE Administration Prednisone 60 mg 07/08/23 10:04 07/08/23 10:11 Prednisone 20 Mg Tablet PO 07/08/23 10:05 60 mg ONCE ONE Administration Medical Decision Making Medical Decision Making [facility] Narrative: 33 yo female with PMH of asthma uses rescue inhaler no recent admits or steroids, IVDA just started injecting again 2 days ago, BPD here with improved asthma exacerbation just from one EMS duoneb - no hypoxia no increased work of breathing at this time basic labs, viral panel, CXR, PO prednisone. anticipate she will resolve quickly and be able to be treated as outpatient. no signs of infection in her track mcdonald at this time does have a history. Suspect URI exacerbating her asthma. Differential Diagnosis Differential Diagnoses: The differential diagnosis associated with the presentation includes viral syndrome, URI, asthma, bronchitis Admission/Observation Consideration of admission/observation: Escalation of care including admission/observation considered no hypoxia, no incr work of breathing can be managed as outpatient will start on doxy - no WBC count has allergy to PCN Lab Data [facility] Lab Attestation statement: I reviewed the patient's lab results. 07/08/23 10:17 07/08/23 10:17 Labs: Lab Results 07/08/23 Range/Units 10:17 WBC 10.7 (4.8-10.8) X10*3/uL RBC 5.00 (4.20-5.50) X10*6/uL Hgb 12.7 (12.0-16.0) g/dl Hct 38.4 (37.0-47.0) % MCV 76.8 L (80.0-98.0) fL MCH 25.4 L (27.0-33.0) pg MCHC 33.1 (31.0-35.0) g/dl RDW 16.4 H (11.0-16.0) % Plt Count 358 (160-400) X10*3/uL MPV 9.5 (9.4-12.3) fL Immature Gran % (Auto) 0.3 (0.0-0.4) % Neut % (Auto) 87.5 H (45-73) % Lymph % (Auto) 8.8 L (20-40) % [place] % (Auto) 3.1 (2-11) % Eos % (Auto) 0.1 (0-4) % Baso % (Auto) 0.2 (0-2) % Lymph # (Auto) 0.9 L (1.2-4.9) X10*3/uL [place] # (Auto) 0.3 (0.1-1.2) X10*3/uL Eos # (Auto) 0.0 (0.0-0.4) X10*3/uL Baso # (Auto) 0.0 (0.0-0.2) X10*3/uL Abs Immat Gran (auto) 0.03 (0.00-0.03) X10*3/uL Absolute Neuts (auto) 9.3 H (2.0-8.3) x10*3/uL Absolute Nucleated RBC 0.000 (0.0-0.012) X10*3/uL Nucleated RBC % (auto) 0.0 (0.0-0.2) /100WBC Sodium 137 (135-145) mmol/L Potassium 4.0 (3.3-5.1) mmol/L Chloride 104 (96-108) mmol/L Carbon Dioxide 24 (22-29) mmol/L Anion Gap 13 (12-20) BUN 17 H (9-16) mg/dL Creatinine 0.75 (0.5-1.4) mg/dL Estim Creat Clear Calc 98.9 Estimated GFR > 60 Random Glucose 86 (60-115) mg/dL Calcium 8.6 (8.4-10.2) mg/dL Magnesium 2.0 (1.6-2.6) mg/dL Total Bilirubin 0.6 (0.0-1.0) mg/dL Direct Bilirubin 0.2 (0.0-0.5) mg/dL AST 33 H (5-31) U/L ALT 23 (0-31) U/L Alkaline Phosphatase 118 H (39-117) U/L Total Protein 8.3 H (6.5-8.0) g/dL Albumin 4.3 (3.5-5.0) g/dL Beta HCG, Quant < 2 mIU/mL Influenza Type A (PCR) NEGATIVE (Negative) Influenza Type B (PCR) NEGATIVE (Negative) RSV RNA Qual (PCR) NEGATIVE (Negative) SARS-CoV-2 RNA (RT-PCR) NEGATIVE (Negative) Independent Interpretation I performed an independent interpretation of an: Plain X-Ray (?pneumonia) Radiology Impression Discussion of test interpretation with radiology: I have reviewed the radiologist's reading. Independent Historian Clinical information obtained from an independent historian. History obtained from or confirmed by: EMS External Record Review External record reviewed: Inpatient record Prescription Management I considered prescription management with: Antibiotic and Other Discharge Plan Discharge Clinical Impression: Asthma with exacerbation Qualifiers: Asthma severity: mild Asthma persistence: persistent Qualified Code(s): J45.31 - Mild persistent asthma with (acute) exacerbation Pneumonia Qualifiers: Pneumonia type: due to unspecified organism Laterality: bilateral Lung location: unspecified part of lung Qualified Code(s): J18.9 - Pneumonia, unspecified organism Patient Disposition: Home, Self-Care Instructions: Asthma (ED), Pneumonia (ED) Additional Instructions: negative for flu and covid. take steroids and antibiotics return for worsening symptoms inability to take medications, difficulty breathing or any other concerns. On doxycycline, do not take pills immediately before going to bed and swallow pills with plenty of water. Avoid direct sunlight, iron, antacids, and Pepto Bismol. Call your provider if you develop new ringing in your ears, new problems hearing, dizziness, difficulty swallowing, rash, abdominal discomfort, nausea, or diarrhea.? Prescriptions: New doxycycline hyclate 100 mg capsule 100 mg PO BID 7 Days Qty: 14 0RF prednisone 20 mg tablet 40 mg PO DAILY 5 Days Qty: 10 0RF ondansetron 4 mg tablet,disintegrating 4 mg PO Q8H PRN (Reason: nausea and vomiting) Qty: 20 0RF No Action methadone [Methadose] 10 mg/mL concentrate 30 mg PO DAILY Rx Instructions: Partial Fill upon patient request. clonidine HCl 0.1 mg Tablet 0.1 mg PO BEDTIME Qty: 7 4RF Protocol: Hold for SBP< HOLD for SBP < : 90 azithromycin 250 mg Tablet 250 mg PO Q24H Qty: 4 0RF nicotine (polacrilex) 2 mg Gum 2 mg buccal Q2H PRN (Reason: Nicotine Cravings) Qty: 100 0RF gabapentin 400 mg Capsule 400 mg PO TID Qty: 21 4RF buspirone 10 mg Tablet 10 mg PO TID Qty: 21 4RF nicotine 21 mg/24 hr Patch 24 Hour 21 mg transdermal DAILY Qty: 30 0RF escitalopram oxalate 10 mg Tablet 10 mg PO DAILY Qty: 7 0RF docusate sodium 100 mg Capsule 100 mg PO BID PRN (Reason: Constipation) Qty: 30 1RF multivitamin [Daily-Alyssa] Tablet 1 tab PO DAILY Qty: 30 0RF sennosides [Senna Lax] 8.6 mg Tablet 17.2 mg PO BEDTIME Qty: 15 1RF melatonin 3 mg Tablet 6 mg PO BEDTIME Qty: 15 1RF Culturelle 1 cap PO DAILY Qty: 0 0RF Patient Own Medication 1 ea topical BID PRNQty: 0 0RF quetiapine [Seroquel] 100 mg tablet 100 mg PO TID Qty: 21 4RF
[2023-07-08 10:07] VITALS: BP 116/80; PULSE 78; RESP 16; TEMP 36.5; O2SAT 97
[2023-07-08] MEDS: predniSONE 20 MG TABLET 60 MG PO (10:11)
--- NOTE | 2023-07-08 10:14 | PC.NURSE ---
a&ox3, vss and up to date, nsr on the cardiac tech. pt biba d/t sob/feeling sick for the past 2 days. pt c/o cough/n/v/diarrhea/fever/chills. pt currently afebrile at this time. hx of asthma. pt displays w/ no sob/wob at this time. pt able to speak in full/clear sentences w/o difficulty. slight wheezing noted upon auscultation throughout. ED provider bedside assessing pt. tech bedside obtaining labs at this time. pt brought in last dose letter for methadone - will provide documentation to provider so dose can be administered. respirations even and unlabored. call olsen placed within reach.
[2023-07-08 10:21] LABS: MANUAL DIFF FLAG NO
[2023-07-08] MEDS: Albuterol Sulfate (0.083%) 2.5 MG/3 ML VIAL.NEB INHALE (10:21)
[2023-07-08 10:22] VITALS: PULSE 78; RESP 16; O2SAT 95
[2023-07-08 10:22] LABS: Basophils Percent Auto 0.2 % (0-2); Eosinophils Percent Auto 0.1 % (0-4); Hematocrit 38.4 % (37.0-47.0); Hemoglobin 12.7 g/dl (12.0-16.0); Imm Gran Abs Auto 0.03 X10*3/uL (0.00-0.03); Imm Gran Pct Auto 0.3 % (0.0-0.4); Lymphocytes Absolute Auto 0.9 X10*3/uL (1.2-4.9); Lymphocytes Percent Auto 8.8 % (20-40); Mean Corpuscular HGB Conc 33.1 g/dl (31.0-35.0); Mean Corpuscular Hemoglobin 25.4 pg (27.0-33.0); Mean Corpuscular Volume 76.8 fL (80.0-98.0); Mean Platelet Volume 9.5 fL (9.4-12.3); Monocytes Absolute Auto 0.3 X10*3/uL (0.1-1.2); Monocytes Percent Auto 3.1 % (2-11); Neutrophils Absolute Auto 9.3 x10*3/uL (2.0-8.3); Neutrophils Percent Auto 87.5 % (45-73); Platelet Count 358 X10*3/uL (160-400); Red Cell Distribution Width 16.4 % (11.0-16.0); White Blood Count 10.7 X10*3/uL (4.8-10.8)
--- NOTE | 2023-07-08 10:36 | HE.PHANOTE ---
RE METHADONE VERIFICATION LAST DOSE OF BHN 30 MG ON 05/23/23 VERIFIED BY ALFONSO AGUILAR
[2023-07-08 10:47] LABS: Alanine Aminotransferase 23 U/L (0-31); Albumin Level 4.3 g/dL (3.5-5.0); Alkaline Phosphatase 118 U/L (39-117); Anion Gap 13 (12-20); Aspartate Amino Transferase 33 U/L (5-31); Bilirubin Direct 0.2 mg/dL (0.0-0.5); Bilirubin Total 0.6 mg/dL (0.0-1.0); Blood Urea Nitrogen 17 mg/dL (9-16); Calcium 8.6 mg/dL (8.4-10.2); Carbon Dioxide 24 mmol/L (22-29); Chloride 104 mmol/L (96-108); Creatinine Clr Calc Pharmacy 98.9; Estimated Glomerular Filt Rate > 60; Glucose Random 86 mg/dL (60-115); HCG Quantitative < 2 mIU/mL; Sodium 137 mmol/L (135-145); Total Protein 8.3 g/dL (6.5-8.0)
[2023-07-08] MEDS: methADONE HCl 20 MG/2 ML ORAL.CONC 60 MG PO (10:50)
--- NOTE | 2023-07-08 10:51 | PC.NURSE ---
methadone dose verified w/ [facility]. pt medicated per provider order. pt receiving nebulizer treatment from RT. states she is feeling way better. respirations remain even and unlabored at this time. call olsen placed within reach.
[2023-07-08 11:01] LABS: Influenza A PCR NEGATIVE (Negative); Influenza B PCR NEGATIVE (Negative); Resp Syncy Virus RNA Qual PCR NEGATIVE (Negative); SARS COV2 PCR INHOUSE NEGATIVE (Negative)
[2023-07-08] MEDS: Doxycycline Monohydrate 100 MG CAPSULE PO (11:20)
--- NOTE | 2023-07-08 11:21 | PC.NURSE ---
medication administered per provider order. respirations even and unlabored. call olsen placed within reach.
--- NOTE | 2023-07-08 12:21 | PC.NURSE ---
pt awaiting lyft from care team - will d/c when able.
--- NOTE | 2023-07-08 12:45 | PC.NURSE ---
pt left facility w/o last dose of methadone form completed/signed. verification form completed/put in pt's chart.
== END 2023-07-08 12:48 | disposition home or self-care (01) ==
PROVIDERS: Emergency Provider Emergency Medicine; PCP Nurse Practitioner Primary Care
DX: J45.31 Mild persistent asthma with (acute) exacerbation (principal); J18.9 Pneumonia, unspecified organism; R06.02 Shortness of breath; R05.9 Cough, unspecified; F17.210 Nicotine dependence, cigarettes, uncomplicated; Z20.822 Contact with and (suspected) exposure to COVID-19; Z20.828 Contact with and (suspected) exposure to other viral communicable diseases; Z71.6 Tobacco abuse counseling; Z79.899 Other long term (current) drug therapy
CPT/HCPCS: 0241U; 71045; 80048; 80076; 83735; 84702; 85025; 94640; 99284; 99285; S9485

== ENCOUNTER 2024-04-07 17:17 | Inpatient (IN) | payer OTHER, SELFPAY ==
--- NOTE | ~2024-04-07 | XR_ITS ---
EXAMINATION: XR CHEST CLINICAL INFORMATION: Shortness of breath. COMPARISON: Chest radiograph dated 07/08/2023. TECHNIQUE: 2 views of the chest were obtained. FINDINGS: The heart is normal in size. The lungs are clear. No pneumothorax or pleural effusion. No acute osseous abnormality. XR/XR chest 2V IMPRESSION: No acute cardiopulmonary disease.
[2024-04-07 17:28] VITALS: BP 126/77; PULSE 80; O2SAT 98
--- NOTE | 2024-04-07 18:10 | ED_ITS ---
HPI - General Adult General Chief complaint: General Medical Stated complaint: congestion, clear lung sounds Time Seen by Provider: 04/07/24 19:24 History of Present Illness ED Provider: Kristina GRECO narrative: The patient is a 33-year-old woman who comes to the emergency room because of a sense of shortness of breath that developed this afternoon over the course of about 1-1/2 hours. She says it was gradual in onset. It is associated with the some nonpleuritic chest discomfort. She also had some abdominal discomfort that she felt moved up into her chest. No fever, sweats, chills. No cough or sputum. She has had some vomiting and diarrhea. No urinary symptoms. The patient says that she was recently hospitalized for psychiatric reasons at a hospital in [place]. She was discharged 2 or 3 days ago she says. She is still varying very depressed and would like to speak to crisis as well as having a medical evaluation. The patient is on methadone. Related Data Home Medications ?Medication ?Instructions ?Recorded ?Confirmed methadone 10 mg/mL oral 30 mg PO DAILY 07/08/23 07/08/23 concentrate (Methadose) baclofen 10 mg tablet 10 mg PO BID 04/08/24 04/08/24 buspirone 15 mg tablet 15 mg PO BID 04/08/24 04/08/24 fluoxetine 20 mg capsule 20 mg PO DAILY 04/08/24 04/08/24 lithium carbonate 450 mg 450 mg PO BID 04/08/24 04/08/24 tablet,extended release melatonin 3 mg tablet 3 mg PO BEDTIME 04/08/24 04/08/24 quetiapine 300 mg tablet,extended 300 mg PO BEDTIME 04/08/24 04/08/24 release 24 hr Previous Rx's ?Medication ?Instructions ?Recorded clonidine HCl 0.1 mg tablet 0.1 mg PO BEDTIME #7 tabs 07/07/23 docusate sodium 100 mg capsule 100 mg PO BID PRN Constipation #30 07/07/23 caps ondansetron 4 mg disintegrating 4 mg PO Q8H PRN nausea and 07/08/23 tablet vomiting #20 tabs Allergies Allergy/AdvReac Type Severity Reaction Status Date / Time Penicillins [PENICILLINS] Allergy Severe ANAPHYLAXIS Verified 04/07/24 18:14 soap [SOAP] Allergy Intermediate ITCHING Verified 04/07/24 18:14 aspirin [ASA] Allergy Unknown ANAPHYLAXIS Verified 04/07/24 18:14 cat dander [cats] Allergy Unknown moderately Verified 04/07/24 18:14 severe latex [LATEX] Allergy Unknown ANAPHYLAXIS Verified 04/07/24 18:14 tramadol [TRAMADOL] Allergy Unknown HIVES, Rash Verified 04/07/24 18:14 acetaminophen [From Tylenol] Allergy Hives Verified 04/07/24 18:14 squid Allergy Unknown Verified 04/07/24 18:14 trazodone AdvReac Severe restless Verified 04/07/24 18:14 legs Review of Systems 2 Review of Systems: Yes all other systems are reviewed and are negative PMFSH Past Medical History Medical History Borderline personality disorder Polysubstance use disorder Abscess of left arm Left arm cellulitis Substance abuse Social History Social History Household Members: None Housing: Homeless Do you presently have visiting nurse or other home services: No Alcohol intake: current Alcohol intake frequency: holidays/special occasions only Alcohol type: wine Patient Tobacco Use Status: Current everyday Tobacco user Tobacco use type: Cigarette Cigarette Packs Per Day: 0.5 Cigarettes Per Day: 10.0 Smoked in Last 30 Days: Yes e-Cigarette/Vaping Use: Never Used Second Hand Smoke Exposure: No Use of substances other than those prescribed or required for medical reasons: No Substance Use Type: Heroin Any prior treatment program specific to substance use: Yes Advance Directives: No Advance Directives Information Provided: No Patient : No service: No Sexual orientation: Straight/Heterosexual Physical Exam ED Vital Signs: Vital Signs - 24 hr 04/08/24 09:02 04/08/24 19:11 Temperature 98.9 F 98.9 F Pulse Rate 65 65 Respiratory Rate 18 16 Blood Pressure 100/67 126/81 Pulse Oximetry 97 98 Oxygen Delivery Method Room Air Room Air BMI result Body Mass Index 28.3 Const Other: The patient is a 33-year-old woman who was awake and alert. She does not appear in obvious distress. She has a somewhat flattened affect. No increased work of breathing. HENMT Other: Face is symmetrical. Mucous membranes moist. Eyes Other: Pupils are round equal, conjunctivae are clear, extraocular movements intact. Neck Other: No obvious JVD Resp Other: No increased work of breathing. No definite wheezes. Breath sounds are equal. Possibly some slight crackles at the bases. Cardio Rate: regular rate Rhythm: regular rhythm Heart sounds: S1 normal heart sound present and S2 normal heart sound present GI Other: Abdomen is soft without significant tenderness Skin Other: Skin is dry and unremarkable Neuro Other: The patient is awake and alert. She has a somewhat flattened affect. She is oriented and appropriate. Cognition seems intact. Cranial nerves 2-12 are grossly intact. She moves her extremities normally and appropriately. She seems neurologically intact. Extrem Other: No calf swelling or tenderness, no asymmetry, no edema. Psych Other: The patient is awake and alert. She looks reasonably well-kempt. She makes reasonably good eye contact. She has a somewhat subdued demeanor. She says that she would like to speak to crisis because she is concerned that she might do something to hurt herself but she denies having done anything to hurt herself to this point. She denies any drug overdose or any other action of self-harm. Course Course Course Narrative: This is a Rapid Medical Exam performed in triage by Jessy Proctor PA-C. Full HPI, ROS and PE to be performed by primary ED provider. 33 year-old F w/ PMHx MDD, substance use, asthma, presenting to the ED c/o SOB x 1.5hrs w/CP and nausea/vomiting & lower abd pain. denies using inhaler. denies cough, travel, sick contacts, urinary sx PE: Lungs CTA, abdomen soft & nontender Plan: viral testing, CXR, labs, UA Reevaluation(s) Reevaluation #1: Physician observation continued. PRN ativan and albuterol INH ordered, no acute events last night repeat trop flat, VS stable, this AM. received PO phenobarb last night. pending CARE team this AM 710am 04/08/24 CARISSA Reevaluation #2: Physician observation continued. VS stable, no acute events last night, inpatient bed search 827am CARISSA 04/09/24 Medications Administered Generic Name Dose Route Start Last Admin Trade Name Freq PRN Reason Stop Dose Admin Baclofen 20 mg 04/08/24 10:30 04/08/24 19:52 Baclofen 20 Mg Tablet PO 20 mg BID LASHA Administration Buspirone HCl 10 mg 04/08/24 10:30 04/08/24 19:53 Buspirone Hcl 10 Mg Tablet PO 10 mg TID LASHA Administration Clonidine HCl 0.1 mg 04/08/24 21:00 04/08/24 19:52 Clonidine Hcl 0.1 Mg Tablet PO 0.1 mg BEDTIME LASHA Administration Protocol Fluoxetine HCl 20 mg 04/08/24 10:30 04/08/24 10:42 Fluoxetine Hcl 20 Mg Capsule PO 20 mg DAILY LASHA Administration [place] Carbonate 450 mg 04/08/24 10:30 04/08/24 19:52 [place] Carbonate Er 450 Mg Tablet.Er PO 450 mg BID LASHA Administration Melatonin 3 mg 04/08/24 21:00 04/08/24 19:52 Melatonin 3 Mg Tablet PO 3 mg BEDTIME LASHA Administration Prednisone 40 mg 04/08/24 10:30 04/08/24 10:42 Prednisone 20 Mg Tablet PO 40 mg DAILY LASHA Administration Quetiapine Fumarate 150 mg 04/08/24 21:00 04/08/24 19:52 Quetiapine Fumarate 50 Mg Tablet PO 150 mg BID LASHA Administration Discontinued Medications Generic Name Dose Route Start Last Admin Trade Name Prisca PRN Reason Stop Dose Admin Albuterol/Ipratropium 3 ml 04/07/24 21:32 04/07/24 21:41 Albuterol/Iprat 2.5/0.5mg 3 Ml Ampul.Neb INHALE 04/07/24 21:33 3 ml ONCE ONE Administration Methadone HCl 40 mg 04/08/24 10:22 04/08/24 10:42 Methadone Hcl 20 Mg/2 Ml Oral.Conc PO 04/08/24 10:23 40 mg ONCE ONE Administration Methadone HCl 90 mg 04/08/24 19:15 04/08/24 19:53 Methadone Hcl 20 Mg/2 Ml Oral.Conc PO 04/08/24 19:16 90 mg ONCE ONE Administration Phenobarbital 240 mg 04/07/24 21:19 04/07/24 21:35 Phenobarbital 30 Mg Tablet PO 04/07/24 21:20 240 mg ONCE ONE Administration Medical Decision Making Medical Decision Making [facility] Narrative: The patient is a 33-year-old female who presented to the emergency department complaining of shortness of breath. She has a history of asthma but on exam she really did not sound like she was wheezing. After being placed in a room she said that she has a history of depression and is feeling depressed and would like to speak to crisis after her medical evaluation. Her medical evaluation revealed a troponin level that was just over the upper limit of normal. She has an EKG that is somewhat abnormal but similar to a previous EKG. A 2nd troponin shows no rising troponin. A D-dimer was done which is normal. Chest x-ray is negative. Ultimately I felt that she was medically cleared from the complaint of shortness of breath. She was given a DuoNeb updraft and seemed to feel much better. The patient is also complaining of depression and it desire to speak to the care team. I think she is medically cleared for evaluation by [facility]. The patient was moved into the [facility] area. Awaiting a care team evaluation. Lab Data 04/07/24 18:23 04/07/24 18:23 Labs: Lab Results 04/07/24 04/07/24 04/07/24 Range/Units 18:23 19:17 20:29 WBC 10.9 H (4.8-10.8) X10*3/uL RBC 4.71 (4.20-5.50) X10*6/uL Hgb 13.4 (12.0-16.0) g/dl Hct 38.1 (37.0-47.0) % MCV 80.9 (80.0-98.0) fL MCH 28.5 (27.0-33.0) pg MCHC 35.2 H (31.0-35.0) g/dl RDW 13.8 (11.0-16.0) % Plt Count 333 (160-400) X10*3/uL MPV 10.2 (9.4-12.3) fL Immature Gran % (Auto) 0.4 (0.0-0.4) % Neut % (Auto) 84.8 H (45-73) % Lymph % (Auto) 10.5 L (20-40) % [place] % (Auto) 4.0 (2-11) % Eos % (Auto) 0.1 (0-4) % Baso % (Auto) 0.2 (0-2) % Lymph # (Auto) 1.2 (1.2-4.9) X10*3/uL [place] # (Auto) 0.4 (0.1-1.2) X10*3/uL Eos # (Auto) 0.0 (0.0-0.4) X10*3/uL Baso # (Auto) 0.0 (0.0-0.2) X10*3/uL Abs Immat Gran (auto) 0.04 H (0.00-0.03) X10*3/uL Absolute Neuts (auto) 9.3 H (2.0-8.3) x10*3/uL Absolute Nucleated RBC 0.000 (0.0-0.012) X10*3/uL Nucleated RBC % (auto) 0.0 (0.0-0.2) /100WBC Smear Tech's Comments VERIFIED ESR 23 H (0-20) MM/HR D-Dimer High Sensitivty < 150 NG/ML Sodium 138 (135-145) mmol/L Potassium 4.3 (3.3-5.1) mmol/L Chloride 101 (96-108) mmol/L Carbon Dioxide 23 (22-29) mmol/L Anion Gap 18 (12-20) BUN 9 (9-16) mg/dL Creatinine 0.87 (0.5-1.4) mg/dL Estim Creat Clear Calc 93.5 Estimated GFR > 60 Random Glucose 98 (60-115) mg/dL Calcium 9.6 D (8.4-10.2) mg/dL Magnesium 2.4 (1.6-2.6) mg/dL Total Bilirubin 0.9 (0.0-1.0) mg/dL Direct Bilirubin 0.2 (0.0-0.5) mg/dL AST 46 H (5-31) U/L ALT 36 H (0-31) U/L Alkaline Phosphatase 111 (39-117) U/L Troponin I High Sens 17.6 H 15.9 (<3.5-17.0) ng/L C-Reactive Protein 1.35 H (< or = 0.50) mg/dL B-Natriuretic Peptide 142 H (<100) pg/mL Total Protein 8.3 H (6.5-8.0) g/dL Albumin 4.5 (3.5-5.0) g/dL Lipase 10 (8-78) U/L Urine Color Dark Yellow Urine Appearance Turbid Urine pH 6.0 (5.0-9.0) Ur Specific [place] >= 1.030 H (1.005-1.025) Urine Protein 30 (1+) H (Neg-Trace) mg/dL Urine Glucose (UA) Negative (Negative) mg/dL Urine Ketones Trace (Negative) mg/dL Urine Blood Negative (Negative) Urine Nitrite Negative (Negative) Ur Leukocyte Esterase Trace H (Negative) Urine RBC 0-2 (0-2) /HPF Urine WBC 0-5 (0-5) /HPF Ur Squamous Epith Cells 11-20 (0-2) /HPF Urine Bacteria 1+ (None Seen) Hyaline Casts >20 (0-2) /LPF Urine Test NEGATIVE (NEGATIVE) Urine Opiates Screen Not Detected (Not Detect) Ur Buprenorphine Scrn Not Detected (Not Detect) ng/mL Ur Oxycodone Screen Not Detected (Not Detect) ng/mL Urine Methadone Screen Positive H (Not Detect) ng/mL Urine Fentanyl Screen POSITIVE H (Not Detect) Ur Barbiturates Screen Not Detected (Not Detect) Ur Phencyclidine Scrn Not Detected (Not Detect) Ur Amphetamines Screen Not Detected (Not Detect) U Benzodiazepines Scrn Not Detected (Not Detect) [place] Urine Cocaine Screen POSITIVE H (Not Detect) U Marijuana (THC) Screen Not Detected (Not Detect) Ethyl Alcohol < 10 mg/dL Influenza Type A (PCR) NEGATIVE (Negative) Influenza Type B (PCR) NEGATIVE (Negative) RSV RNA Qual (PCR) NEGATIVE (Negative) SARS-CoV-2 RNA (RT-PCR) NEGATIVE (Negative) 04/08/24 Range/Units 10:35 WBC (4.8-10.8) X10*3/uL RBC (4.20-5.50) X10*6/uL Hgb (12.0-16.0) g/dl Hct (37.0-47.0) % MCV (80.0-98.0) fL MCH (27.0-33.0) pg MCHC (31.0-35.0) g/dl RDW (11.0-16.0) % Plt Count (160-400) X10*3/uL MPV (9.4-12.3) fL Immature Gran % (Auto) (0.0-0.4) % Neut % (Auto) (45-73) % Lymph % (Auto) (20-40) % [place] % (Auto) (2-11) % Eos % (Auto) (0-4) % Baso % (Auto) (0-2) % Lymph # (Auto) (1.2-4.9) X10*3/uL [place] # (Auto) (0.1-1.2) X10*3/uL Eos # (Auto) (0.0-0.4) X10*3/uL Baso # (Auto) (0.0-0.2) X10*3/uL Abs Immat Gran (auto) (0.00-0.03) X10*3/uL Absolute Neuts (auto) (2.0-8.3) x10*3/uL Absolute Nucleated RBC (0.0-0.012) X10*3/uL Nucleated RBC % (auto) (0.0-0.2) /100WBC Smear Tech's Comments ESR (0-20) MM/HR D-Dimer High Sensitivty NG/ML Sodium (135-145) mmol/L Potassium (3.3-5.1) mmol/L Chloride (96-108) mmol/L Carbon Dioxide (22-29) mmol/L Anion Gap (12-20) BUN (9-16) mg/dL Creatinine (0.5-1.4) mg/dL Estim Creat Clear Calc Estimated GFR Random Glucose (60-115) mg/dL Calcium (8.4-10.2) mg/dL Magnesium (1.6-2.6) mg/dL Total Bilirubin (0.0-1.0) mg/dL Direct Bilirubin (0.0-0.5) mg/dL AST (5-31) U/L ALT (0-31) U/L Alkaline Phosphatase (39-117) U/L Troponin I High Sens (<3.5-17.0) ng/L C-Reactive Protein (< or = 0.50) mg/dL B-Natriuretic Peptide (<100) pg/mL Total Protein (6.5-8.0) g/dL Albumin (3.5-5.0) g/dL Lipase (8-78) U/L Urine Color Urine Appearance Urine pH (5.0-9.0) Ur Specific [place] (1.005-1.025) Urine Protein (Neg-Trace) mg/dL Urine Glucose (UA) (Negative) mg/dL Urine Ketones (Negative) mg/dL Urine Blood (Negative) Urine Nitrite (Negative) Ur Leukocyte Esterase (Negative) Urine RBC (0-2) /HPF Urine WBC (0-5) /HPF Ur Squamous Epith Cells (0-2) /HPF Urine Bacteria (None Seen) Hyaline Casts (0-2) /LPF Urine Test (NEGATIVE) Urine Opiates Screen (Not Detect) Ur Buprenorphine Scrn (Not Detect) ng/mL Ur Oxycodone Screen (Not Detect) ng/mL Urine Methadone Screen (Not Detect) ng/mL Urine Fentanyl Screen (Not Detect) Ur Barbiturates Screen (Not Detect) Ur Phencyclidine Scrn (Not Detect) Ur Amphetamines Screen (Not Detect) U Benzodiazepines Scrn (Not Detect) [place] Cancelled Urine Cocaine Screen (Not Detect) U Marijuana (THC) Screen (Not Detect) Ethyl Alcohol mg/dL Influenza Type A (PCR) (Negative) Influenza Type B (PCR) (Negative) RSV RNA Qual (PCR) (Negative) SARS-CoV-2 RNA (RT-PCR) (Negative) Independent Interpretation I performed an independent interpretation of an: EKG Interpretation: EKG at 19:19 shows normal sinus rhythm at 67 beats per minute. QT interval is 496. Compared to the previous EKG the QT interval is longer but other findings are similar. Discharge Plan Discharge Clinical Impression: Depression, Shortness of breath Patient Disposition: Still a Patient Prescriptions: No Action methadone [Methadose] 10 mg/mL concentrate 30 mg PO DAILY Rx Instructions: Partial Fill upon patient request. ondansetron 4 mg tablet,disintegrating 4 mg PO Q8H PRN (Reason: nausea and vomiting) Qty: 20 0RF clonidine HCl 0.1 mg Tablet 0.1 mg PO BEDTIME Qty: 7 4RF Protocol: Hold for SBP< HOLD for SBP < : 90 docusate sodium 100 mg Capsule 100 mg PO BID PRN (Reason: Constipation) Qty: 30 1RF melatonin 3 mg tablet 3 mg PO BEDTIME lithium carbonate 450 mg tablet extended release 450 mg PO BID quetiapine 300 mg tablet extended release 24 hr 300 mg PO BEDTIME baclofen 10 mg tablet 10 mg PO BID fluoxetine 20 mg capsule 20 mg PO DAILY buspirone 15 mg tablet 15 mg PO BID Print Language: Citizen Of [place]
[2024-04-07 18:11] VITALS: BP 109/71; PULSE 78; RESP 18; TEMP 37.2; O2SAT 92; BMI 28.3
[2024-04-07 18:51] LABS: Alanine Aminotransferase 36 U/L (0-31); Albumin Level 4.5 g/dL (3.5-5.0); Alkaline Phosphatase 111 U/L (39-117); Anion Gap 18 (12-20); Aspartate Amino Transferase 46 U/L (5-31); Bilirubin Direct 0.2 mg/dL (0.0-0.5); Bilirubin Total 0.9 mg/dL (0.0-1.0); Blood Urea Nitrogen 9 mg/dL (9-16); Calcium 9.6 mg/dL (8.4-10.2); Carbon Dioxide 23 mmol/L (22-29); Chloride 101 mmol/L (96-108); Creatinine Clr Calc Pharmacy 93.5; Estimated Glomerular Filt Rate > 60; Glucose Random 98 mg/dL (60-115); Lipase 10 U/L (8-78); Magnesium 2.4 mg/dL (1.6-2.6); Potassium 4.3 mmol/L (3.3-5.1); Sodium 138 mmol/L (135-145); Total Protein 8.3 g/dL (6.5-8.0)
[2024-04-07 18:57] LABS: Eosinophils Percent Auto 0.1 % (0-4); Hematocrit 38.1 % (37.0-47.0); Imm Gran Abs Auto 0.04 X10*3/uL (0.00-0.03); Imm Gran Pct Auto 0.4 % (0.0-0.4); MANUAL DIFF FLAG SCAN; Mean Corpuscular Volume 80.9 fL (80.0-98.0); PLT CLUMP 1; Red Blood Count 4.71 X10*6/uL (4.20-5.50); SCAN SMEAR FLAG 1
[2024-04-07 18:58] LABS: Troponin-I High Sensitivity 17.6 ng/L (<3.5-17.0)
[2024-04-07 18:59] LABS: Basophils Percent Auto 0.2 % (0-2); Hemoglobin 13.4 g/dl (12.0-16.0); Lymphocytes Absolute Auto 1.2 X10*3/uL (1.2-4.9); Lymphocytes Percent Auto 10.5 % (20-40); Mean Corpuscular HGB Conc 35.2 g/dl (31.0-35.0); Mean Corpuscular Hemoglobin 28.5 pg (27.0-33.0); Monocytes Absolute Auto 0.4 X10*3/uL (0.1-1.2); Neutrophils Absolute Auto 9.3 x10*3/uL (2.0-8.3); Neutrophils Percent Auto 84.8 % (45-73); Red Cell Distribution Width 13.8 % (11.0-16.0)
[2024-04-07 19:08] LABS: Influenza A PCR NEGATIVE (Negative); Influenza B PCR NEGATIVE (Negative); Resp Syncy Virus RNA Qual PCR NEGATIVE (Negative); SARS COV2 PCR INHOUSE NEGATIVE (Negative)
[2024-04-07 19:14] VITALS: BP 124/75; PULSE 84; RESP 16; TEMP 36.9; O2SAT 97
--- NOTE | 2024-04-07 19:18 | ECG_ITS ---
Test Reason : SOB Blood Pressure : / mmHG Vent. Rate : 067 BPM Atrial Rate : 067 BPM P-R Int : 128 ms QRS Dur : 082 ms QT Int : 470 ms P-R-T Axes : 012 051 036 degrees QTc Int : 496 ms Normal sinus rhythm Prolonged QT Abnormal ECG When compared with ECG of 14-JUN-2023 12:09, QT has lengthened Referred By: Jessy Proctor Electronically Signed By:
--- NOTE | 2024-04-07 19:18 | MHC.EDTECH ---
this pct assumed care of patient ,vitals taken and urine sample collected and sent to lab ,call olsen within pt reach ,Plan of care continue .
[2024-04-07 19:24] LABS: Mean Platelet Volume 10.2 fL (9.4-12.3); Platelet Count 333 X10*3/uL (160-400); White Blood Count 10.9 X10*3/uL (4.8-10.8)
[2024-04-07 19:25] LABS: SLIDE REVIEW VERIFIED
--- NOTE | 2024-04-07 19:30 | MHC.EDTECH ---
Patient ekg taken and was read by Provider ,Patient was hooked up to teletypesetter monitor ,call olsen within pt reach ,plan of care continue .
[2024-04-07 19:41] LABS: Appearance Urine Turbid; Color Urine Dark Yellow; Glucose Urine UA Negative (Negative); Leukocyte Esterase Urine Trace (Negative); Nitrite Urine Negative (Negative); Specific Gravity - Urine >= 1.030 (1.005-1.025); UMIC TRIGGER UACC YES; Urine Blood Negative (Negative); Urine Ketones Trace mg/dL (Negative); Urine Protein 30 (1+) mg/dL (Neg-Trace)
[2024-04-07 19:42] LABS: UPreg QC Valid YES; Urine Pregnancy NEGATIVE (NEGATIVE)
[2024-04-07 19:47] VITALS: BP 110/67; PULSE 72; RESP 17; TEMP 37; O2SAT 96
[2024-04-07 19:51] LABS: C Reactive Protein 1.35 mg/dL (< or = 0.50)
--- NOTE | 2024-04-07 19:51 | PC.NURSE ---
Pt aox4, tearful at the bedside. Reports SI with no plan. Pt expresses desire to speak with crisis. Provider and charge made aware. Pt to be changed over with 1:1 sitter at bedside. Pt aware of plan of care.
[2024-04-07 19:56] LABS: Bacteria Urine 1+ (None Seen); Hyaline Casts Urine >20 /LPF (0-2); RBC Urine 0-2 /HPF (0-2); WBC Urine 0-5 /HPF (0-5)
[2024-04-07 20:04] LABS: B Type Natriuretic Peptide 142 pg/mL (<100)
--- NOTE | 2024-04-07 20:06 | PC.NURSE ---
mehnaz styles in ....search began and ended in pod
[2024-04-07 20:46] LABS: D Dimer High Sensitivity < 150 NG/ML
[2024-04-07 20:57] LABS: Troponin-I High Sensitivity 15.9 ng/L (<3.5-17.0)
[2024-04-07 21:17] LABS: Erythrocyte Sedimentation Rate 23 MM/HR (0-20)
[2024-04-07] MEDS: PHENobarbitaL 30 MG TABLET 240 MG PO (21:35)
[2024-04-07 21:39] VITALS: BP 100/64; PULSE 61; RESP 16; TEMP 36.8; O2SAT 96
[2024-04-07] MEDS: Albuterol/Iprat 2.5/0.5MG 3 ML AMPUL.NEB INHALE (21:41)
[2024-04-07 21:42] VITALS: PULSE 65; RESP 18; O2SAT 96
[2024-04-07 22:24] LABS: Ethanol < 10 mg/dL
[2024-04-08 02:40] LABS: Amphetamine Screen Urine Not Detected (Not Detect); Barbiturates, Urine Not Detected (Not Detect); Benzodiazepines Screen Urine Not Detected (Not Detect); Buprenorphine Scr Not Detected (Not Detect); Cannabinoid Screen Urine Not Detected (Not Detect); Cocaine Screen Urine POSITIVE (Not Detect); Fentanyl, urine POSITIVE (Not Detect); Methadone Screen, Urine Positive (Not Detect); Opiate Screen Urine Not Detected (Not Detect); Oxycodone Screen Urine Not Detected (Not Detect); Phencyclidine Screen Urine Not Detected (Not Detect)
--- NOTE | 2024-04-08 08:53 | PC.NURSE ---
Assumed care of patient at 0645, patient appears to be in no apparent distress this am, sitting and talking with CARE team at this time. Continue plan of care for CARE team dispo
[2024-04-08 09:02] VITALS: BP 100/67; PULSE 65; RESP 18; TEMP 37.2; O2SAT 97
--- NOTE | 2024-04-08 10:23 | PC.NURSE ---
patient last dose at [facility] however clinic is closed today. Dr. Tamez aware that methadone cannot be verified
[2024-04-08] MEDS: Lithium Carbonate ER 450 MG TABLET.ER PO ×2 (10:42→19:52)
[2024-04-08] MEDS: busPIRone HCl 10 MG TABLET PO ×3 (10:42→19:53)
[2024-04-08] MEDS: methADONE HCl 20 MG/2 ML ORAL.CONC 40 MG PO (10:42)
[2024-04-08] MEDS: predniSONE 20 MG TABLET 40 MG PO (10:42)
[2024-04-08] MEDS: FLUoxetine HCl 20 MG CAPSULE PO (10:42)
[2024-04-08] MEDS: Baclofen 20 MG TABLET PO ×2 (10:42→19:52)
--- NOTE | 2024-04-08 11:23 | PC.NURSE ---
patient refusing blood draw
--- NOTE | 2024-04-08 12:16 | MHC.EDTECH ---
Pt refused RED7 LITH blood draw, rn aware, Dr. Tamez made aware as well
--- NOTE | 2024-04-08 18:06 | PC.NURSE ---
03/17/24 120MG METHADONE AT [facility]
--- NOTE | 2024-04-08 18:12 | PHA.MEDREC ---
Addendum entered by Jacky Albarran RP 04/08/24 18:25: Reviewed by [facility] Original Note: Pharmacy Consult ? Medication Reconciliation Pharmacy has completed the medication reconciliation. patient is not taking prednisone.
--- NOTE | 2024-04-08 18:37 | PC.NURSE ---
VERIFIED MTD DOSE WITH [facility], SHERYL DEGROOT RN AND HOUSE SUP. TEL [phone] LAST DOSE 04/06/24 130MG GIVEN AT 0955.
--- NOTE | 2024-04-08 19:05 | HE.PHANOTE ---
METHADONE VERIFICATION Dose: 130mg, last dose 04/06/24 @0955 per Benja Mendoza NP from [facility].
--- NOTE | 2024-04-08 19:05 | PC.NURSE ---
patient appears to remain at rest at present respirations are even and unlabored patient appears in no distress
[2024-04-08 19:11] VITALS: BP 126/81; PULSE 65; RESP 16; TEMP 37.2; O2SAT 98
[2024-04-08] MEDS: cloNIDine HCL 0.1 MG TABLET PO (19:52)
[2024-04-08] MEDS: Melatonin 3 MG TABLET PO (19:52)
[2024-04-08] MEDS: QUEtiapine Fumarate 50 MG TABLET 150 MG PO (19:52)
[2024-04-08] MEDS: methADONE HCl 20 MG/2 ML ORAL.CONC 90 MG PO (19:53)
[2024-04-09] MEDS: Lithium Carbonate ER 450 MG TABLET.ER PO ×2 (10:17→20:41)
[2024-04-09] MEDS: QUEtiapine Fumarate 50 MG TABLET 150 MG PO ×2 (10:17→20:41)
[2024-04-09] MEDS: busPIRone HCl 10 MG TABLET PO ×3 (10:18→20:42)
[2024-04-09] MEDS: FLUoxetine HCl 20 MG CAPSULE PO (10:18)
[2024-04-09] MEDS: LORazepam 1 MG TABLET 2 MG PO ×2 (10:21→14:23)
[2024-04-09] MEDS: predniSONE 20 MG TABLET 40 MG PO (10:31)
[2024-04-09] MEDS: Baclofen 20 MG TABLET PO ×2 (10:31→20:42)
--- NOTE | 2024-04-09 11:56 | ECG_ITS ---
Test Reason : repeat Blood Pressure : / mmHG Vent. Rate : 065 BPM Atrial Rate : 065 BPM P-R Int : 126 ms QRS Dur : 072 ms QT Int : 416 ms P-R-T Axes : 039 062 045 degrees QTc Int : 432 ms Normal sinus rhythm Nonspecific T wave abnormality Abnormal ECG When compared with ECG of 07-APR-2024 19:19, QT has shortened Referred By: Tunde Ferrari Electronically Signed By:SUBHA HER
[2024-04-09 13:56] VITALS: BMI 28.4
[2024-04-09] MEDS: methADONE HCl 20 MG/2 ML ORAL.CONC 130 MG PO (14:19)
[2024-04-09] MEDS: Nicotine Polacrilex 2 MG GUM 4 MG BUCCAL ×2 (14:23→20:47)
[2024-04-09 15:09] VITALS: BP 145/86; PULSE 112; RESP 16; TEMP 37.2; O2SAT 98
[2024-04-09 15:14] LABS: Lithium 0.97 mmol/L (0.60-1.20)
--- NOTE | 2024-04-09 16:13 | PC.NURSE ---
Lauren was admitted to [facility] at 1330 from [facility]? on CV for treatment of Mood Disorder with SI and polysubstance abuse. Pt appears to be an unreliable historian as she reports she was discharged from ? a hospital in [place]? ( doesn?t know the name)? ? about 3 days ago? but also reports she has been drinking heavily and using IV cocaine as recently as yesterday but she had been in the [facility] since 04/07. Per crisis assessment she reports overdosing on IV cocaine in a suicide attempt 3 days ago. Tox screen was positive for cocaine, fentanyl and methadone. ETOH was negative. All belongings are in [place]. She is alert, disoriented to day, date, time. Oriented to place. CIWA assessment completed on arrival to unit. Pt scored 12 and received ativan 2mg po. She appears to know the CIWA assessment well as she listed her withdrawal symptoms without prompting i.e. ? moderate sensitivity to light? Mood is depressed Affect is subdued. She denies hallucinations, did not voice delusional thought content during admission assessment and does not appear internally preoccupied.? She denies ideation, plan or intent to harm self or others. Appetite is good. She denies recent weight loss or gain. Sleep per crisis assessment has been poor. Focus is good. She denies Medical Issues? or Physical complaint. In ed she was trreated for reported SOB with albuterol and prednisone. She denies current cough, wheeze or shortness of breath. Goal of admission is to establish providers and restart meds. Although pt states she has not been taking her meds Li level is .97 Pt is placed on q 15 min Safety Checks
[2024-04-09 18:24] VITALS: BP 112/77; PULSE 92; RESP 16; TEMP 36.8; O2SAT 95
[2024-04-09] MEDS: LORazepam 1 MG TABLET PO (18:31)
[2024-04-09 20:39] VITALS: BP 119/79; PULSE 96; RESP 16; TEMP 36.7; O2SAT 94
[2024-04-09] MEDS: Melatonin 3 MG TABLET PO (20:41)
[2024-04-09] MEDS: diphenhydrAMINE HCL 25 MG CAPSULE 50 MG PO (20:41)
[2024-04-09] MEDS: cloNIDine HCL 0.2 MG TABLET PO (20:41)
[2024-04-09] MEDS: Docusate Sodium 100 MG CAPSULE PO (20:42)
[2024-04-09] MEDS: Milk of Magnesia 30 ML ORAL.SUSP PO (20:42)
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
[2024-04-10 08:10] VITALS: BP 98/63; PULSE 70; RESP 14; TEMP 37.4; O2SAT 95
[2024-04-10] MEDS: methADONE HCl 20 MG/2 ML ORAL.CONC 130 MG PO (08:14)
[2024-04-10 08:20] LABS: Estimated Average Glucose 91 mg/dL; Hemoglobin A1c % 4.8 % (<6.0)
[2024-04-10 08:29] LABS: Cholesterol 271 mg/dL (<200); HDL Cholesterol 42 mg/dL (>40); LDL Cholesterol Calculated 194 mg/dL (<100); Triglycerides 177 mg/dL (<150)
[2024-04-10 08:42] LABS: Syphilis Screen Nonreactive (Nonreactive)
[2024-04-10 08:44] LABS: Free T4 (Free Thyroxine) 0.96 ng/dL (0.71-1.85); Thyroid Stimulating Hormone 2.64 uIU/mL (0.32-4.0)
[2024-04-10] MEDS: FLUoxetine HCl 20 MG CAPSULE PO (08:47)
[2024-04-10] MEDS: predniSONE 20 MG TABLET 40 MG PO (08:47)
[2024-04-10] MEDS: busPIRone HCl 10 MG TABLET PO ×3 (08:47→20:35)
[2024-04-10] MEDS: QUEtiapine Fumarate 50 MG TABLET 150 MG PO ×2 (08:47→20:33)
[2024-04-10] MEDS: Lithium Carbonate ER 450 MG TABLET.ER PO ×2 (08:47→20:35)
[2024-04-10 08:52] LABS: HIV AB/AG Nonreactive (Nonreactive); HIV Num 1 0.14 S/CO (0.00-0.99); ~HepC Num1 17.26 S/CO (0.00-0.79); ~Hepatitis C Antibody Reactive (Nonreactive)
[2024-04-10 08:57] LABS: Folate 10.6 ng/mL (> or = 4.0); Vitamin B12 333 pg/mL (200-900)
[2024-04-10] MEDS: Ibuprofen 400 MG TABLET PO (10:13)
[2024-04-10] MEDS: LORazepam 1 MG TABLET PO ×4 (10:13→20:34)
[2024-04-10] MEDS: Baclofen 20 MG TABLET PO ×2 (10:40→20:36)
--- NOTE | 2024-04-10 14:06 | HO.PSYCHPN ---
Subjective Subjective Date of Service: 04/10/24 Reason For Visit: SI Interim History: calm, cooperative. appears somewhat sedated from methadone. asking for enema. informed ativan taper to take place as of today. per staff, slept 8 hours last NOC, has good appetite. 3 more days of prednisone. Mental Status Exam Mental Status Exam Narrative: dressed in scrubs, adequately groomed. cooperative, although apparently poor historian. no PMA/PMR. speech nml rate, amount. decr loudness, nml latency, normal tone. thoughts linear and logical. no delusions or paranoia evident. affect constricted, normo-intense, non-labile. mood depressed. passive SI. denies HI/AVH. Diagnostics Vital Signs (24Hr): Vital Signs - 24 hr 04/09/24 15:09 04/09/24 18:24 04/09/24 20:39 Temperature 98.9 F 98.3 F 98.0 F Pulse Rate 112 H 92 96 Respiratory Rate 16 16 16 Blood Pressure 145/86 H 112/77 119/79 Pulse Oximetry 98 95 94 Oxygen Delivery Method Room Air Room Air 04/10/24 08:10 Temperature 99.4 F Pulse Rate 70 Respiratory Rate 14 Blood Pressure 98/63 Pulse Oximetry 95 Oxygen Delivery Method Room Air BMI result Body Mass Index 28.4 Labs 04/07/24 18:23 04/07/24 18:23 Labs: Laboratory Results - last 48 hr 04/08/24 04/09/24 04/10/24 10:35 14:57 07:58 Estimat Average Glucose 91 Hemoglobin A1c % 4.8 Triglycerides 177 H Cholesterol 271 H LDL Cholesterol, Calc 194 H HDL Cholesterol 42 Vitamin B12 333 Folate 10.6 TSH 2.64 Free T4 0.96 [place] Cancelled 0.97 T.pallidum Ab (EIA) Nonreactive Hepatitis C Ab (EIA) Reactive H HIV 1&2 Ab/P24 Ag 4thGn Nonreactive Imaging Radiology Impressions: ITS Impressions Chest X-Ray 04/07/24 20:08 IMPRESSION: No acute cardiopulmonary disease. Medications Medications Current Medications Al Hydroxide/Mg Hydroxide (Magnesium Hydrox/Alum Hydrox 30 Ml Oral.Susp) 30 ml PO Q6H PRN PRN Reason: Heartburn/Nausea Albuterol Sulfate (Albuterol Sulfate 90 Mcg 8 Gm Inhaler) 2 puff INHALE Q4H PRN PRN Reason: Shortness of Breath Baclofen (Baclofen 20 Mg Tablet) 20 mg PO BID [facility] Last Admin: 04/10/24 10:40 Dose: 20 mg Buspirone HCl (Buspirone Hcl 10 Mg Tablet) 10 mg PO TID [facility] Last Admin: 04/10/24 08:47 Dose: 10 mg Clonidine HCl (Clonidine Hcl 0.2 Mg Tablet) 0.2 mg PO BEDTIME [facility]; Protocol Last Admin: 04/09/24 20:41 Dose: 0.2 mg Clonidine HCl (Clonidine Hcl 0.1 Mg Tablet) 0.1 mg PO Q4H PRN; Protocol PRN Reason: opioid w/drawal Sx Dicyclomine HCl (Dicyclomine Hcl 10 Mg Capsule) 10 mg PO QIDACHS PRN PRN Reason: spasm Diphenhydramine HCl (Diphenhydramine Hcl 25 Mg Capsule) 50 mg PO BEDTIME [facility] Last Admin: 04/09/24 20:41 Dose: 50 mg Fluoxetine HCl (Fluoxetine Hcl 20 Mg Capsule) 20 mg PO DAILY [facility] Last Admin: 04/10/24 08:47 Dose: 20 mg Hydroxyzine HCl (Hydroxyzine Hcl 25 Mg Tablet) 25 mg PO Q6H PRN PRN Reason: Anxiety Ibuprofen (Ibuprofen 400 Mg Tablet) 400 mg PO Q6H PRN PRN Reason: aches Last Admin: 04/10/24 10:13 Dose: 400 mg [place] Carbonate ([place] Carbonate Er 450 Mg Tablet.Er) 450 mg PO BID [facility] Last Admin: 04/10/24 08:47 Dose: 450 mg Loperamide HCl (Loperamide Hcl 2 Mg Capsule) 2 mg PO Q4H PRN PRN Reason: diarrhea Lorazepam (Lorazepam 1 Mg Tablet) 1 mg PO QID [facility] Stop: 04/11/24 09:54 Last Admin: 04/10/24 13:04 Dose: 1 mg Lorazepam (Lorazepam 1 Mg Tablet) 1 mg PO TID [facility] Stop: 04/11/24 21:01 Lorazepam (Lorazepam 1 Mg Tablet) 1 mg PO BID [facility] Stop: 04/13/24 09:01 Magnesium Hydroxide (Milk Of Magnesia 30 Ml Oral.Susp) 30 ml PO DAILY PRN PRN Reason: Constipation Last Admin: 04/09/24 20:42 Dose: 30 ml Melatonin (Melatonin 3 Mg Tablet) 3 mg PO BEDTIME [facility] Last Admin: 04/09/24 20:41 Dose: 3 mg Methadone HCl (Methadone Hcl 20 Mg/2 Ml Oral.Conc) 130 mg PO DAILY [facility] Last Admin: 04/10/24 08:14 Dose: 130 mg Nicotine Polacrilex (Nicotine Polacrilex 2 Mg Gum) 4 mg BUCCAL Q2H PRN PRN Reason: Nicotine Cravings Last Admin: 04/09/24 20:47 Dose: 4 mg Ondansetron HCl (Ondansetron Odt 4 Mg Tab.Rapdis) 4 mg TRANSLINGU Q6H PRN PRN Reason: Nausea and Vomiting Prednisone (Prednisone 20 Mg Tablet) 40 mg PO DAILY [facility] Stop: 04/12/24 10:29 Last Admin: 04/10/24 08:47 Dose: 40 mg Quetiapine Fumarate (Quetiapine Fumarate 50 Mg Tablet) 150 mg PO BID [facility] Last Admin: 04/10/24 08:47 Dose: 150 mg Senna/Docusate Sodium (Sennosides/Docusate Sodium Tablet) 2 tab PO BEDTIME [facility] Sodium Biphosphate/Sodium Phosphate (Sodium Phosphate,[place]-Dibasic 133 Ml Enema) 133 ml [place] ONCE PRN PRN Reason: constipation Allergies Allergies Allergy/AdvReac Type Severity Reaction Status Date / Time Penicillins [PENICILLINS] Allergy Severe ANAPHYLAXIS Verified 04/07/24 18:14 soap [SOAP] Allergy Intermediate ITCHING Verified 04/07/24 18:14 aspirin [ASA] Allergy Unknown ANAPHYLAXIS Verified 04/07/24 18:14 cat dander [cats] Allergy Unknown moderately Verified 04/07/24 18:14 severe latex [LATEX] Allergy Unknown ANAPHYLAXIS Verified 04/07/24 18:14 tramadol [TRAMADOL] Allergy Unknown HIVES, Rash Verified 04/07/24 18:14 acetaminophen [From Tylenol] Allergy Hives Verified 04/07/24 18:14 squid Allergy Unknown Verified 04/07/24 18:14 trazodone AdvReac Severe restless Verified 04/07/24 18:14 legs Assessment & Plan Assessment & Plan (1) Depression: Status: Acute Code(s): F32.A - Depression, unspecified (2) Borderline personality disorder: Status: Acute Code(s): F60.3 - Borderline personality disorder (3) Polysubstance use disorder: Status: Acute Code(s): F19.90 - Other psychoactive substance use, unspecified, uncomplicated Plan 04/09: continue/restart home meds. comfort meds for opioid withdrawal. ativan per CIWA for alcohol withdrawal. supportive care for cocaine withdrawal. also requesting STI testing. 04/10: STI testing ordered. taper ativan over next 4 days. continue other meds otherwise. refer for rehab. Reason for continued inpatient stay Substantial Risk for: harm to self, inability to function and rapid decompensation Time Spent With Patient Time: Total time managing care of this patient today __25__ minutes.
[2024-04-10] MEDS: Sodium Phosphate,Mono-Dibasic 133 ML ENEMA PR (17:09)
[2024-04-10 18:45] LABS: Bacterial Vaginosis PCR POSITIVE (Negative); Candida Group PCR NOT DETECTED (Not Detect); Candida glab krusei PCR DETECTED (Not Detect); Trichomonas vaginalis PCR DETECTED (Not Detect)
[2024-04-10 19:15] LABS: CT PCR NOT DETECTED (Not Detect.); NG PCR NOT DETECTED (Not Detect.)
--- NOTE | 2024-04-10 20:11 | PM.EVENT ---
Event Note Date of Service: 04/10/24 Event Note: Patient positive for Trichomonas, bacterial vaginosis, [place] and Hep C antibody reactive. Will order metronidazole 500 mg twice daily x7 days and fluconazole 150 mg x1. Outpatient follow-up for hep C. Time Spent With Patient Time: Total time managing care of this patient today ____ minutes.
[2024-04-10 20:23] VITALS: BP 104/67; PULSE 77; RESP 14; TEMP 37.5; O2SAT 95
[2024-04-10] MEDS: Fluconazole 150 MG TABLET PO (20:33)
[2024-04-10] MEDS: Sennosides/Docusate Sodium TABLET 2 TAB PO (20:34)
[2024-04-10] MEDS: metroNIDAZOLE 500 MG TABLET PO (20:35)
[2024-04-10] MEDS: diphenhydrAMINE HCL 25 MG CAPSULE 50 MG PO (20:35)
[2024-04-10] MEDS: Melatonin 3 MG TABLET PO (20:36)
[2024-04-10] MEDS: cloNIDine HCL 0.2 MG TABLET PO (20:36)
[2024-04-10] MEDS: Nicotine Polacrilex 2 MG GUM 4 MG BUCCAL (22:04)
[2024-04-10 22:09] VITALS: BP 100/65
[2024-04-10] MEDS: Dicyclomine HCl 10 MG CAPSULE PO (22:09)
[2024-04-10] MEDS: cloNIDine HCL 0.1 MG TABLET PO (22:09)
[2024-04-11] MEDS: hydrOXYzine HCL 25 MG TABLET PO ×2 (04:45→16:52)
[2024-04-11 04:46] VITALS: BP 100/63
[2024-04-11] MEDS: cloNIDine HCL 0.1 MG TABLET PO (04:46)
[2024-04-11 08:00] VITALS: BP 85/53; PULSE 67; RESP 18; TEMP 36.9; O2SAT 97
[2024-04-11] MEDS: methADONE HCl 20 MG/2 ML ORAL.CONC 130 MG PO (08:12)
[2024-04-11] MEDS: LORazepam 1 MG TABLET PO ×3 (08:43→20:41)
[2024-04-11] MEDS: QUEtiapine Fumarate 50 MG TABLET 150 MG PO ×2 (08:43→20:39)
[2024-04-11] MEDS: Lithium Carbonate ER 450 MG TABLET.ER PO ×2 (08:44→20:41)
[2024-04-11] MEDS: FLUoxetine HCl 20 MG CAPSULE PO (08:44)
[2024-04-11] MEDS: metroNIDAZOLE 500 MG TABLET PO ×2 (08:45→20:41)
[2024-04-11] MEDS: Baclofen 20 MG TABLET PO ×2 (08:45→20:39)
[2024-04-11] MEDS: predniSONE 20 MG TABLET 40 MG PO (08:45)
[2024-04-11] MEDS: busPIRone HCl 10 MG TABLET PO ×3 (08:45→20:42)
[2024-04-11] MEDS: Nicotine Polacrilex 2 MG GUM 4 MG BUCCAL ×3 (12:28→20:42)
--- NOTE | 2024-04-11 15:06 | MHC.RECOVRN ---
AUDIT-C Brief Intervention Pt had positive screen for unhealthy alcohol use on admission, subsequently met with t/w to discuss alcohol use and recovery supports/options. Pt voices concern regarding alcohol use and is aware that drinking at unhealthy levels is known to increase risk of alcohol related health problems. Pt reports 5-6 nips [place] daily x 3-4 days. Pt expresses how alcohol use has impacted health, including negative impact on overall mental health and physical wellbeing. Discussed risk reduction strategies including drinking below the recommended limit. Provided pt with written resources including information on inpatient and outpatient treatment, [place], harm reduction, and recovery coaching. Pt plans to meet with swimming coach on 04/12 to continue to discuss recovery resources. Pt provided with t/w contact information if questions or concerns arise. Denies other questions or concerns at this time.
--- NOTE | 2024-04-11 16:13 | P.PNPSI_ITS ---
Subjective Subjective Date of Service: 04/11/24 Reason For Visit: SI Interim History: c/o vaginal pruritis, nightmares, poor sleep. appears to be nodding off repeatedly throughout interview but says she just didn't sleep well last night. flagyl started for BV and trichy. pt aware of Hep C, says it was addressed and cleared. per staff, c/o dep/anx. Mental Status Exam Mental Status Exam Narrative: dressed in street clothes, adequately groomed. cooperative, although apparently poor historian. nodding off. no PMA/PMR. speech nml rate, decr amount. decr loudness, incr latency, normal tone. thoughts linear and logical. no delusions or paranoia evident. affect constricted, normo-intense, non-labile. mood depressed. passive SI. denies HI/AVH. Diagnostics Vital Signs (24Hr): Vital Signs - 24 hr 04/10/24 20:23 04/10/24 22:09 04/11/24 04:46 Temperature 99.5 F Pulse Rate 77 Respiratory Rate 14 Blood Pressure 104/67 100/65 100/63 Pulse Oximetry 95 Oxygen Delivery Method Room Air 04/11/24 08:00 Temperature 98.4 F Pulse Rate 67 Respiratory Rate 18 Blood Pressure 85/53 L Pulse Oximetry 97 Oxygen Delivery Method Room Air BMI result Body Mass Index 28.4 Labs 04/07/24 18:23 04/07/24 18:23 Labs: Laboratory Results - last 48 hr 04/10/24 04/10/24 07:58 17:15 Estimat Average Glucose 91 Hemoglobin A1c % 4.8 Triglycerides 177 H Cholesterol 271 H LDL Cholesterol, Calc 194 H HDL Cholesterol 42 Vitamin B12 333 Folate 10.6 TSH 2.64 Free T4 0.96 T.pallidum Ab (EIA) Nonreactive Chlam trachomat DNA PCR NOT DETECTED Hepatitis C Ab (EIA) Reactive H HIV 1&2 Ab/P24 Ag 4thGn Nonreactive N.gonorrhoeae DNA (PCR) NOT DETECTED T. vaginalis (PCR) DETECTED A Bact Vaginosis (PCR) POSITIVE A C. krusei/glabrata (PCR) DETECTED A [place] group (PCR) NOT DETECTED T. vaginalis Amp RNA Cancelled Imaging Radiology Impressions: ITS Impressions Chest X-Ray 04/07/24 20:08 IMPRESSION: No acute cardiopulmonary disease. Medications Medications Current Medications Al Hydroxide/Mg Hydroxide (Magnesium Hydrox/Alum Hydrox 30 Ml Oral.Susp) 30 ml PO Q6H PRN PRN Reason: Heartburn/Nausea Albuterol Sulfate (Albuterol Sulfate 90 Mcg 8 Gm Inhaler) 2 puff INHALE Q4H PRN PRN Reason: Shortness of Breath Baclofen (Baclofen 20 Mg Tablet) 20 mg PO BID [facility] Last Admin: 04/11/24 08:45 Dose: 20 mg Buspirone HCl (Buspirone Hcl 10 Mg Tablet) 10 mg PO TID [facility] Last Admin: 04/11/24 15:12 Dose: 10 mg Clonidine HCl (Clonidine Hcl 0.2 Mg Tablet) 0.2 mg PO BEDTIME [facility]; Protocol Last Admin: 04/10/24 20:36 Dose: 0.2 mg Clonidine HCl (Clonidine Hcl 0.1 Mg Tablet) 0.1 mg PO Q4H PRN; Protocol PRN Reason: opioid w/drawal Sx Last Admin: 04/11/24 04:46 Dose: 0.1 mg Dicyclomine HCl (Dicyclomine Hcl 10 Mg Capsule) 10 mg PO QIDACHS PRN PRN Reason: spasm Last Admin: 04/10/24 22:09 Dose: 10 mg Diphenhydramine HCl (Diphenhydramine Hcl 25 Mg Capsule) 50 mg PO BEDTIME [facility] Last Admin: 04/10/24 20:35 Dose: 50 mg Fluoxetine HCl (Fluoxetine Hcl 20 Mg Capsule) 20 mg PO DAILY [facility] Last Admin: 04/11/24 08:44 Dose: 20 mg Hydroxyzine HCl (Hydroxyzine Hcl 25 Mg Tablet) 25 mg PO Q6H PRN PRN Reason: Anxiety Last Admin: 04/11/24 04:45 Dose: 25 mg Ibuprofen (Ibuprofen 400 Mg Tablet) 400 mg PO Q6H PRN PRN Reason: aches Last Admin: 04/10/24 10:13 Dose: 400 mg [place] Carbonate ([place] Carbonate Er 450 Mg Tablet.Er) 450 mg PO BID [facility] Last Admin: 04/11/24 08:44 Dose: 450 mg Loperamide HCl (Loperamide Hcl 2 Mg Capsule) 2 mg PO Q4H PRN PRN Reason: diarrhea Lorazepam (Lorazepam 1 Mg Tablet) 1 mg PO TID [facility] Stop: 04/11/24 21:01 Last Admin: 04/11/24 15:12 Dose: 1 mg Lorazepam (Lorazepam 1 Mg Tablet) 1 mg PO BID [facility] Stop: 04/13/24 09:01 Magnesium Hydroxide (Milk Of Magnesia 30 Ml Oral.Susp) 30 ml PO DAILY PRN PRN Reason: Constipation Last Admin: 04/09/24 20:42 Dose: 30 ml Melatonin (Melatonin 3 Mg Tablet) 3 mg PO BEDTIME [facility] Last Admin: 04/10/24 20:36 Dose: 3 mg Methadone HCl (Methadone Hcl 20 Mg/2 Ml Oral.Conc) 130 mg PO DAILY [facility] Last Admin: 04/11/24 08:12 Dose: 130 mg Metronidazole (Metronidazole 500 Mg Tablet) 500 mg PO BID [facility] Stop: 04/17/24 20:59 Last Admin: 04/11/24 08:45 Dose: 500 mg Nicotine Polacrilex (Nicotine Polacrilex 2 Mg Gum) 4 mg BUCCAL Q2H PRN PRN Reason: Nicotine Cravings Last Admin: 04/11/24 12:28 Dose: 4 mg Ondansetron HCl (Ondansetron Odt 4 Mg Tab.Rapdis) 4 mg TRANSLINGU Q6H PRN PRN Reason: Nausea and Vomiting Prednisone (Prednisone 20 Mg Tablet) 40 mg PO DAILY [facility] Stop: 04/12/24 10:29 Last Admin: 04/11/24 08:45 Dose: 40 mg Quetiapine Fumarate (Quetiapine Fumarate 50 Mg Tablet) 150 mg PO BID [facility] Last Admin: 04/11/24 08:43 Dose: 150 mg Senna/Docusate Sodium (Sennosides/Docusate Sodium Tablet) 2 tab PO BEDTIME [facility] Last Admin: 04/10/24 20:34 Dose: 2 tab Sodium Biphosphate/Sodium Phosphate (Sodium Phosphate,[place]-Dibasic 133 Ml Enema) 133 ml [place] ONCE PRN PRN Reason: constipation Last Admin: 04/10/24 17:09 Dose: 133 ml Allergies Allergies Allergy/AdvReac Type Severity Reaction Status Date / Time Penicillins [PENICILLINS] Allergy Severe ANAPHYLAXIS Verified 04/07/24 18:14 soap [SOAP] Allergy Intermediate ITCHING Verified 04/07/24 18:14 aspirin [ASA] Allergy Unknown ANAPHYLAXIS Verified 04/07/24 18:14 cat dander [cats] Allergy Unknown moderately Verified 04/07/24 18:14 severe latex [LATEX] Allergy Unknown ANAPHYLAXIS Verified 04/07/24 18:14 tramadol [TRAMADOL] Allergy Unknown HIVES, Rash Verified 04/07/24 18:14 acetaminophen [From Tylenol] Allergy Hives Verified 04/07/24 18:14 squid Allergy Unknown Verified 04/07/24 18:14 trazodone AdvReac Severe restless Verified 04/07/24 18:14 legs Assessment & Plan Assessment & Plan (1) Depression: Status: Acute Code(s): F32.A - Depression, unspecified (2) Borderline personality disorder: Status: Acute Code(s): F60.3 - Borderline personality disorder (3) Polysubstance use disorder: Status: Acute Code(s): F19.90 - Other psychoactive substance use, unspecified, uncomplicated Plan 04/09: continue/restart home meds. comfort meds for opioid withdrawal. ativan per CIWA for alcohol withdrawal. supportive care for cocaine withdrawal. also requesting STI testing. 04/10: STI testing ordered. taper ativan over next 4 days. continue other meds otherwise. refer for rehab. 04/11: BV, trichy POS, getting flagyl x 1 week. hep C Ab POS. nodding off. continue ativan taper. Reason for continued inpatient stay Substantial Risk for: inability to function and rapid decompensation Time Spent With Patient Time: Total time managing care of this patient today __25__ minutes.
[2024-04-11 20:30] VITALS: BP 101/62; PULSE 85; RESP 16; TEMP 36.9; O2SAT 95
[2024-04-11] MEDS: cloNIDine HCL 0.2 MG TABLET PO (20:39)
[2024-04-11] MEDS: Melatonin 3 MG TABLET PO (20:40)
[2024-04-11] MEDS: diphenhydrAMINE HCL 25 MG CAPSULE 50 MG PO (20:40)
[2024-04-11] MEDS: Sennosides/Docusate Sodium TABLET 2 TAB PO (20:40)
[2024-04-12 07:54] VITALS: BP 102/63; PULSE 58; RESP 14; TEMP 37.6; O2SAT 96
[2024-04-12] MEDS: methADONE HCl 20 MG/2 ML ORAL.CONC 130 MG PO (08:24)
[2024-04-12] MEDS: QUEtiapine Fumarate 50 MG TABLET 150 MG PO ×2 (08:48→21:15)
[2024-04-12] MEDS: Baclofen 20 MG TABLET PO ×2 (08:49→21:15)
[2024-04-12] MEDS: metroNIDAZOLE 500 MG TABLET PO ×2 (08:49→21:15)
[2024-04-12] MEDS: busPIRone HCl 10 MG TABLET PO ×3 (08:49→21:15)
[2024-04-12] MEDS: predniSONE 20 MG TABLET 40 MG PO (08:49)
[2024-04-12] MEDS: Lithium Carbonate ER 450 MG TABLET.ER PO ×2 (08:50→21:15)
[2024-04-12] MEDS: FLUoxetine HCl 20 MG CAPSULE PO (08:50)
[2024-04-12] MEDS: LORazepam 1 MG TABLET PO ×2 (08:50→21:14)
[2024-04-12] MEDS: hydrOXYzine HCL 25 MG TABLET PO ×2 (10:59→18:48)
[2024-04-12 11:40] LABS: Influenza A PCR NEGATIVE (Negative); Influenza B PCR NEGATIVE (Negative); Resp Syncy Virus RNA Qual PCR NEGATIVE (Negative); SARS COV2 PCR INHOUSE NEGATIVE (Negative)
--- NOTE | 2024-04-12 13:45 | P.PNPSI_ITS ---
Subjective Subjective Date of Service: 04/12/24 Reason For Visit: SI Interim History: more awake and alert than yesterday. slept well. wants rehab. per staff, napping much of the day yesterday. c/o increased anxiety. no SI/AVH. slept all NOC. Mental Status Exam Mental Status Exam Narrative: dressed in street clothes, adequately groomed. cooperative. no PMA/PMR. speech nml rate, decr amount. decr loudness, incr latency, normal tone. thoughts linear and logical. no delusions or paranoia evident. affect constricted, normo-intense, non-labile. mood depressed. passive SI. denies HI/AVH. Diagnostics Vital Signs (24Hr): Vital Signs - 24 hr 04/11/24 20:30 04/12/24 07:54 Temperature 98.5 F 99.6 F Pulse Rate 85 58 Respiratory Rate 16 14 Blood Pressure 101/62 102/63 Pulse Oximetry 95 96 Oxygen Delivery Method Room Air Room Air BMI result Body Mass Index 28.4 Labs 04/07/24 18:23 04/07/24 18:23 Labs: Laboratory Results - last 48 hr 04/10/24 04/12/24 17:15 10:51 Chlam trachomat DNA PCR NOT DETECTED Influenza Type A (PCR) NEGATIVE Influenza Type B (PCR) NEGATIVE N.gonorrhoeae DNA (PCR) NOT DETECTED RSV RNA Qual (PCR) NEGATIVE SARS-CoV-2 RNA (RT-PCR) NEGATIVE T. vaginalis (PCR) DETECTED A Bact Vaginosis (PCR) POSITIVE A C. krusei/glabrata (PCR) DETECTED A [place] group (PCR) NOT DETECTED T. vaginalis Amp RNA Cancelled Imaging Radiology Impressions: ITS Impressions Chest X-Ray 04/07/24 20:08 IMPRESSION: No acute cardiopulmonary disease. Medications Medications Current Medications Al Hydroxide/Mg Hydroxide (Magnesium Hydrox/Alum Hydrox 30 Ml Oral.Susp) 30 ml PO Q6H PRN PRN Reason: Heartburn/Nausea Albuterol Sulfate (Albuterol Sulfate 90 Mcg 8 Gm Inhaler) 2 puff INHALE Q4H PRN PRN Reason: Shortness of Breath Baclofen (Baclofen 20 Mg Tablet) 20 mg PO BID [facility] Last Admin: 04/12/24 08:49 Dose: 20 mg Buspirone HCl (Buspirone Hcl 10 Mg Tablet) 10 mg PO TID [facility] Last Admin: 04/12/24 08:49 Dose: 10 mg Clonidine HCl (Clonidine Hcl 0.2 Mg Tablet) 0.2 mg PO BEDTIME [facility]; Protocol Last Admin: 04/11/24 20:39 Dose: 0.2 mg Clonidine HCl (Clonidine Hcl 0.1 Mg Tablet) 0.1 mg PO Q4H PRN; Protocol PRN Reason: opioid w/drawal Sx Last Admin: 04/11/24 04:46 Dose: 0.1 mg Dicyclomine HCl (Dicyclomine Hcl 10 Mg Capsule) 10 mg PO QIDACHS PRN PRN Reason: spasm Last Admin: 04/10/24 22:09 Dose: 10 mg Diphenhydramine HCl (Diphenhydramine Hcl 25 Mg Capsule) 50 mg PO BEDTIME [facility] Last Admin: 04/11/24 20:40 Dose: 50 mg Fluoxetine HCl (Fluoxetine Hcl 20 Mg Capsule) 20 mg PO DAILY [facility] Last Admin: 04/12/24 08:50 Dose: 20 mg Hydroxyzine HCl (Hydroxyzine Hcl 25 Mg Tablet) 25 mg PO Q6H PRN PRN Reason: Anxiety Last Admin: 04/12/24 10:59 Dose: 25 mg Ibuprofen (Ibuprofen 400 Mg Tablet) 400 mg PO Q6H PRN PRN Reason: aches Last Admin: 04/10/24 10:13 Dose: 400 mg [place] Carbonate ([place] Carbonate Er 450 Mg Tablet.Er) 450 mg PO BID [facility] Last Admin: 04/12/24 08:50 Dose: 450 mg Loperamide HCl (Loperamide Hcl 2 Mg Capsule) 2 mg PO Q4H PRN PRN Reason: diarrhea Lorazepam (Lorazepam 1 Mg Tablet) 1 mg PO BID [facility] Stop: 04/13/24 09:01 Last Admin: 04/12/24 08:50 Dose: 1 mg Magnesium Hydroxide (Milk Of Magnesia 30 Ml Oral.Susp) 30 ml PO DAILY PRN PRN Reason: Constipation Last Admin: 04/09/24 20:42 Dose: 30 ml Melatonin (Melatonin 3 Mg Tablet) 3 mg PO BEDTIME [facility] Last Admin: 04/11/24 20:40 Dose: 3 mg Methadone HCl (Methadone Hcl 20 Mg/2 Ml Oral.Conc) 130 mg PO DAILY [facility] Last Admin: 04/12/24 08:24 Dose: 130 mg Metronidazole (Metronidazole 500 Mg Tablet) 500 mg PO BID [facility] Stop: 04/17/24 20:59 Last Admin: 04/12/24 08:49 Dose: 500 mg Nicotine Polacrilex (Nicotine Polacrilex 2 Mg Gum) 4 mg BUCCAL Q2H PRN PRN Reason: Nicotine Cravings Last Admin: 04/11/24 20:42 Dose: 4 mg Ondansetron HCl (Ondansetron Odt 4 Mg Tab.Rapdis) 4 mg TRANSLINGU Q6H PRN PRN Reason: Nausea and Vomiting Quetiapine Fumarate (Quetiapine Fumarate 50 Mg Tablet) 150 mg PO BID [facility] Last Admin: 04/12/24 08:48 Dose: 150 mg Senna/Docusate Sodium (Sennosides/Docusate Sodium Tablet) 2 tab PO BEDTIME [facility] Last Admin: 04/11/24 20:40 Dose: 2 tab Sodium Biphosphate/Sodium Phosphate (Sodium Phosphate,[place]-Dibasic 133 Ml Enema) 133 ml [place] ONCE PRN PRN Reason: constipation Last Admin: 04/10/24 17:09 Dose: 133 ml Sodium Biphosphate/Sodium Phosphate (Sodium Phosphate,[place]-Dibasic 133 Ml Enema) 133 ml [place] ONCE PRN PRN Reason: constipation Allergies Allergies Allergy/AdvReac Type Severity Reaction Status Date / Time Penicillins [PENICILLINS] Allergy Severe ANAPHYLAXIS Verified 04/07/24 18:14 soap [SOAP] Allergy Intermediate ITCHING Verified 04/07/24 18:14 aspirin [ASA] Allergy Unknown ANAPHYLAXIS Verified 04/07/24 18:14 cat dander [cats] Allergy Unknown moderately Verified 04/07/24 18:14 severe latex [LATEX] Allergy Unknown ANAPHYLAXIS Verified 04/07/24 18:14 tramadol [TRAMADOL] Allergy Unknown HIVES, Rash Verified 04/07/24 18:14 acetaminophen [From Tylenol] Allergy Hives Verified 04/07/24 18:14 squid Allergy Unknown Verified 04/07/24 18:14 trazodone AdvReac Severe restless Verified 04/07/24 18:14 legs Assessment & Plan Assessment & Plan (1) Depression: Status: Acute Code(s): F32.A - Depression, unspecified (2) Borderline personality disorder: Status: Acute Code(s): F60.3 - Borderline personality disorder (3) Polysubstance use disorder: Status: Acute Code(s): F19.90 - Other psychoactive substance use, unspecified, uncomplicated Plan 04/09: continue/restart home meds. comfort meds for opioid withdrawal. ativan per CIWA for alcohol withdrawal. supportive care for cocaine withdrawal. also requesting STI testing. 04/10: STI testing ordered. taper ativan over next 4 days. continue other meds otherwise. refer for rehab. 04/11: BV, trichy POS, getting flagyl x 1 week. hep C Ab POS. nodding off. continue ativan taper. 04/12: continue current mgmt. refer to rehabs. more awake than yesterday. Reason for continued inpatient stay Substantial Risk for: harm to self, inability to function and rapid decompensation Time Spent With Patient Time: Total time managing care of this patient today __25__ minutes.
[2024-04-12 14:21] VITALS: BP 101/66
[2024-04-12] MEDS: cloNIDine HCL 0.1 MG TABLET PO (14:21)
[2024-04-12] MEDS: Nicotine Polacrilex 2 MG GUM 4 MG BUCCAL (19:00)
--- NOTE | 2024-04-12 19:10 | MHC.RECOVSUP ---
? Reason for consult Recovery support o Current location: [address] o Identified substance use concern: Heroin - Support ? Intervention: o Community resources provided o Harm reduction discussion ? Plan: o Patient to follow up with H after discharge ? Additional information: Met with Patient and we talked about recovery and the different pathway,, Patient stated that she was new to recovery and wants to get better for her kids. Patient stated that she wants to go to a program away for [facility]. And would like a disaster recovery analyst.
[2024-04-12 21:10] VITALS: BP 111/64; PULSE 73; RESP 18; TEMP 37.2; O2SAT 96
[2024-04-12] MEDS: Sennosides/Docusate Sodium TABLET 2 TAB PO (21:14)
[2024-04-12] MEDS: Melatonin 3 MG TABLET PO (21:15)
[2024-04-12] MEDS: diphenhydrAMINE HCL 25 MG CAPSULE 50 MG PO (21:15)
[2024-04-12] MEDS: cloNIDine HCL 0.2 MG TABLET PO (21:15)
[2024-04-13] MEDS: methADONE HCl 20 MG/2 ML ORAL.CONC 130 MG PO (08:04)
[2024-04-13 09:02] VITALS: BP 98/65; PULSE 60; RESP 16; TEMP 36.9; O2SAT 96
[2024-04-13] MEDS: metroNIDAZOLE 500 MG TABLET PO ×2 (09:05→21:19)
[2024-04-13] MEDS: FLUoxetine HCl 20 MG CAPSULE PO (09:06)
[2024-04-13] MEDS: QUEtiapine Fumarate 50 MG TABLET 150 MG PO ×2 (09:06→21:17)
[2024-04-13] MEDS: busPIRone HCl 10 MG TABLET PO ×3 (09:07→21:20)
[2024-04-13] MEDS: LORazepam 1 MG TABLET PO (09:07)
[2024-04-13] MEDS: Lithium Carbonate ER 450 MG TABLET.ER PO ×2 (09:08→21:20)
[2024-04-13] MEDS: Baclofen 20 MG TABLET PO ×2 (09:08→21:19)
[2024-04-13] MEDS: Ibuprofen 400 MG TABLET PO (09:54)
[2024-04-13] MEDS: Nicotine 21 MG PATCH.TD24 TRANSDERMA (12:12)
[2024-04-13 13:19] VITALS: BP 94/59; PULSE 60
[2024-04-13] MEDS: Nicotine Polacrilex 2 MG GUM 4 MG BUCCAL (13:19)
[2024-04-13] MEDS: cloNIDine HCL 0.1 MG TABLET PO (13:19)
[2024-04-13] MEDS: hydrOXYzine HCL 25 MG TABLET PO (14:37)
--- NOTE | 2024-04-13 15:20 | P.PNPSI_ITS ---
Subjective Subjective Date of Service: 04/13/24 Reason For Visit: SI Interim History: sleeping on her bed late morning, easily rousbale. calm, reporting VH claiming she is in alcohol withdrawal, asks for ativan by name. MD assures her alcohol withdrawal is complete. she then notes her anxiety and says ativan is the only thing that has helped with her anxiety. MD informed later by staff pt c/o MD's not Rxing her ativan and asking to speak with different MD. per staff, c/o dep/anx. +meds. lots of PRNs. napping. slept 7 hours last night. c/o roommate snoring. Mental Status Exam Mental Status Exam Narrative: dressed in street clothes, adequately groomed. cooperative. no PMA/PMR. speech nml rate, decr amount. decr loudness, incr latency, normal tone. thoughts linear and logical. no delusions or paranoia evident. affect constricted, normo-intense, non-labile. mood anxious. no SI/SIBI/HI/AVH expressed. Diagnostics Vital Signs (24Hr): Vital Signs - 24 hr 04/12/24 21:10 04/13/24 09:02 04/13/24 13:19 Temperature 98.9 F 98.4 F Pulse Rate 73 60 Respiratory Rate 18 16 Blood Pressure 111/64 98/65 94/59 L Pulse Oximetry 96 96 Oxygen Delivery Method Room Air Room Air 04/13/24 13:19 Temperature Pulse Rate 60 Respiratory Rate Blood Pressure 94/59 L Pulse Oximetry Oxygen Delivery Method BMI result Body Mass Index 30.0 Labs 04/07/24 18:23 04/07/24 18:23 Labs: Laboratory Results - last 48 hr 04/12/24 10:51 Influenza Type A (PCR) NEGATIVE Influenza Type B (PCR) NEGATIVE RSV RNA Qual (PCR) NEGATIVE SARS-CoV-2 RNA (RT-PCR) NEGATIVE Imaging Radiology Impressions: ITS Impressions Chest X-Ray 04/07/24 20:08 IMPRESSION: No acute cardiopulmonary disease. Medications Medications Current Medications Al Hydroxide/Mg Hydroxide (Magnesium Hydrox/Alum Hydrox 30 Ml Oral.Susp) 30 ml PO Q6H PRN PRN Reason: Heartburn/Nausea Albuterol Sulfate (Albuterol Sulfate 90 Mcg 8 Gm Inhaler) 2 puff INHALE Q4H PRN PRN Reason: Shortness of Breath Baclofen (Baclofen 20 Mg Tablet) 20 mg PO BID [facility] Last Admin: 04/13/24 09:08 Dose: 20 mg Buspirone HCl (Buspirone Hcl 10 Mg Tablet) 10 mg PO TID [facility] Last Admin: 04/13/24 14:37 Dose: 10 mg Clonidine HCl (Clonidine Hcl 0.2 Mg Tablet) 0.2 mg PO BEDTIME [facility]; Protocol Last Admin: 04/12/24 21:15 Dose: 0.2 mg Clonidine HCl (Clonidine Hcl 0.1 Mg Tablet) 0.1 mg PO Q4H PRN; Protocol PRN Reason: opioid w/drawal Sx Last Admin: 04/13/24 13:19 Dose: 0.1 mg Dicyclomine HCl (Dicyclomine Hcl 10 Mg Capsule) 10 mg PO QIDACHS PRN PRN Reason: spasm Last Admin: 04/10/24 22:09 Dose: 10 mg Diphenhydramine HCl (Diphenhydramine Hcl 25 Mg Capsule) 50 mg PO BEDTIME [facility] Last Admin: 04/12/24 21:15 Dose: 50 mg Fluoxetine HCl (Fluoxetine Hcl 20 Mg Capsule) 20 mg PO DAILY [facility] Last Admin: 04/13/24 09:06 Dose: 20 mg Hydroxyzine HCl (Hydroxyzine Hcl 25 Mg Tablet) 25 mg PO Q6H PRN PRN Reason: Anxiety Last Admin: 04/13/24 14:37 Dose: 25 mg Ibuprofen (Ibuprofen 400 Mg Tablet) 400 mg PO Q6H PRN PRN Reason: aches Last Admin: 04/13/24 09:54 Dose: 400 mg [place] Carbonate ([place] Carbonate Er 450 Mg Tablet.Er) 450 mg PO BID [facility] Last Admin: 04/13/24 09:08 Dose: 450 mg Loperamide HCl (Loperamide Hcl 2 Mg Capsule) 2 mg PO Q4H PRN PRN Reason: diarrhea Magnesium Hydroxide (Milk Of Magnesia 30 Ml Oral.Susp) 30 ml PO DAILY PRN PRN Reason: Constipation Last Admin: 04/09/24 20:42 Dose: 30 ml Melatonin (Melatonin 3 Mg Tablet) 3 mg PO BEDTIME [facility] Last Admin: 04/12/24 21:15 Dose: 3 mg Methadone HCl (Methadone Hcl 20 Mg/2 Ml Oral.Conc) 130 mg PO DAILY [facility] Last Admin: 04/13/24 08:04 Dose: 130 mg Metronidazole (Metronidazole 500 Mg Tablet) 500 mg PO BID [facility] Stop: 04/17/24 20:59 Last Admin: 04/13/24 09:05 Dose: 500 mg Nicotine (Nicotine 21 Mg Patch.Td24) 21 mg TRANSDERMA DAILY [facility] Last Admin: 04/13/24 12:12 Dose: 21 mg Nicotine Polacrilex (Nicotine Polacrilex 2 Mg Gum) 4 mg BUCCAL Q2H PRN PRN Reason: Nicotine Cravings Last Admin: 04/13/24 13:19 Dose: 4 mg Ondansetron HCl (Ondansetron Odt 4 Mg Tab.Rapdis) 4 mg TRANSLINGU Q6H PRN PRN Reason: Nausea and Vomiting Quetiapine Fumarate (Quetiapine Fumarate 50 Mg Tablet) 150 mg PO BID [facility] Last Admin: 04/13/24 09:06 Dose: 150 mg Senna/Docusate Sodium (Sennosides/Docusate Sodium Tablet) 2 tab PO BEDTIME [facility] Last Admin: 04/12/24 21:14 Dose: 2 tab Sodium Biphosphate/Sodium Phosphate (Sodium Phosphate,[place]-Dibasic 133 Ml Enema) 133 ml [place] ONCE PRN PRN Reason: constipation Last Admin: 04/10/24 17:09 Dose: 133 ml Sodium Biphosphate/Sodium Phosphate (Sodium Phosphate,[place]-Dibasic 133 Ml Enema) 133 ml [place] ONCE PRN PRN Reason: constipation Allergies Allergies Allergy/AdvReac Type Severity Reaction Status Date / Time Penicillins [PENICILLINS] Allergy Severe ANAPHYLAXIS Verified 04/07/24 18:14 soap [SOAP] Allergy Intermediate ITCHING Verified 04/07/24 18:14 aspirin [ASA] Allergy Unknown ANAPHYLAXIS Verified 04/07/24 18:14 cat dander [cats] Allergy Unknown moderately Verified 04/07/24 18:14 severe latex [LATEX] Allergy Unknown ANAPHYLAXIS Verified 04/07/24 18:14 tramadol [TRAMADOL] Allergy Unknown HIVES, Rash Verified 04/07/24 18:14 acetaminophen [From Tylenol] Allergy Hives Verified 04/07/24 18:14 squid Allergy Unknown Verified 04/07/24 18:14 trazodone AdvReac Severe restless Verified 04/07/24 18:14 legs Assessment & Plan Assessment & Plan (1) Depression: Status: Acute Code(s): F32.A - Depression, unspecified (2) Borderline personality disorder: Status: Acute Code(s): F60.3 - Borderline personality disorder (3) Polysubstance use disorder: Status: Acute Code(s): F19.90 - Other psychoactive substance use, unspecified, uncomplicated Plan 04/09: continue/restart home meds. comfort meds for opioid withdrawal. ativan per CIWA for alcohol withdrawal. supportive care for cocaine withdrawal. also requesting STI testing. 04/10: STI testing ordered. taper ativan over next 4 days. continue other meds otherwise. refer for rehab. 04/11: BV, trichy POS, getting flagyl x 1 week. hep C Ab POS. nodding off. continue ativan taper. 04/12: continue current mgmt. refer to rehabs. more awake than yesterday. 04/13: continue current mgmt. ativan taper is complete, pt is NOT in alcohol withdrawal and does not need more benzos despite her stating, without observed corroborating behaviors, i'm having hallucinations due to alcohol withdrawal. refer for rehabs. Reason for continued inpatient stay Substantial Risk for: inability to function and rapid decompensation Time Spent With Patient Time: Total time managing care of this patient today __25__ minutes.
[2024-04-13 19:45] VITALS: BP 97/54; PULSE 71; RESP 16; TEMP 36.9; O2SAT 96
[2024-04-13] MEDS: diphenhydrAMINE HCL 25 MG CAPSULE 50 MG PO (21:18)
[2024-04-13] MEDS: Melatonin 3 MG TABLET PO (21:20)
[2024-04-13] MEDS: Sennosides/Docusate Sodium TABLET 2 TAB PO (21:21)
[2024-04-13 21:32] VITALS: BP 92/54
[2024-04-13 23:01] VITALS: BP 90/60
[2024-04-14 07:40] VITALS: BP 102/63; PULSE 70; RESP 12; TEMP 37; O2SAT 98
[2024-04-14] MEDS: methADONE HCl 20 MG/2 ML ORAL.CONC 130 MG PO (08:13)
[2024-04-14] MEDS: Lithium Carbonate ER 450 MG TABLET.ER PO ×2 (09:00→20:17)
[2024-04-14] MEDS: Baclofen 20 MG TABLET PO ×2 (09:00→20:17)
[2024-04-14] MEDS: metroNIDAZOLE 500 MG TABLET PO ×2 (09:00→20:17)
[2024-04-14] MEDS: FLUoxetine HCl 20 MG CAPSULE PO (09:01)
[2024-04-14] MEDS: busPIRone HCl 10 MG TABLET PO ×3 (09:01→20:17)
[2024-04-14] MEDS: QUEtiapine Fumarate 50 MG TABLET 150 MG PO ×2 (09:01→20:17)
[2024-04-14] MEDS: Gabapentin 300 MG CAPSULE PO ×3 (12:20→20:17)
--- NOTE | 2024-04-14 14:23 | HO.PSYCHPN ---
Subjective Subjective Date of Service: 04/14/24 Reason For Visit: SI Interim History: pt continues to insist she is in alcohol withdrawal and is experiencing VH as a result and has a seizure history with alcohol withdrawal. reiterates to pt that she has received a proper taper, that she is not experiencing alcohol withdrawal, and so whatever VH she is having are not attributable to EtOH withdrawal. she reports her chronic anxiety. broaches gabapentin as helpful for Sz prophylaxis, anxiety for some, and as used in some alcohol detox protocols. pt interested in trial. MD agrees to start at 300 TID. per staff, attending groups. reporting 06/01 dep/anx. c/o light sensitivity. nodding off in group. clonidine held at HS due to hypotension. Mental Status Exam Mental Status Exam Narrative: dressed in street clothes, adequately groomed. cooperative. no PMA/PMR. speech nml rate, decr amount. decr loudness, incr latency, normal tone. thoughts linear and logical. no delusions or paranoia evident. affect constricted, normo-intense, non-labile. mood anxious. no SI/SIBI/HI/AVH expressed. Diagnostics Vital Signs (24Hr): Vital Signs - 24 hr 04/13/24 19:45 04/13/24 21:32 04/13/24 23:01 Temperature 98.4 F Pulse Rate 71 Respiratory Rate 16 Blood Pressure 97/54 L 92/54 L 90/60 Pulse Oximetry 96 Oxygen Delivery Method Room Air 04/14/24 07:40 Temperature 98.6 F Pulse Rate 70 Respiratory Rate 12 Blood Pressure 102/63 Pulse Oximetry 98 Oxygen Delivery Method Room Air BMI result Body Mass Index 30.0 Labs 04/07/24 18:23 04/07/24 18:23 Imaging Radiology Impressions: ITS Impressions Chest X-Ray 04/07/24 20:08 IMPRESSION: No acute cardiopulmonary disease. Medications Medications Current Medications Al Hydroxide/Mg Hydroxide (Magnesium Hydrox/Alum Hydrox 30 Ml Oral.Susp) 30 ml PO Q6H PRN PRN Reason: Heartburn/Nausea Albuterol Sulfate (Albuterol Sulfate 90 Mcg 8 Gm Inhaler) 2 puff INHALE Q4H PRN PRN Reason: Shortness of Breath Baclofen (Baclofen 20 Mg Tablet) 20 mg PO BID [facility] Last Admin: 04/14/24 09:00 Dose: 20 mg Buspirone HCl (Buspirone Hcl 10 Mg Tablet) 10 mg PO TID [facility] Last Admin: 04/14/24 09:01 Dose: 10 mg Clonidine HCl (Clonidine Hcl 0.2 Mg Tablet) 0.2 mg PO BEDTIME [facility]; Protocol Last Admin: 04/13/24 22:19 Dose: Not Given Clonidine HCl (Clonidine Hcl 0.1 Mg Tablet) 0.1 mg PO Q4H PRN; Protocol PRN Reason: opioid w/drawal Sx Last Admin: 04/13/24 13:19 Dose: 0.1 mg Dicyclomine HCl (Dicyclomine Hcl 10 Mg Capsule) 10 mg PO QIDACHS PRN PRN Reason: spasm Last Admin: 04/10/24 22:09 Dose: 10 mg Diphenhydramine HCl (Diphenhydramine Hcl 25 Mg Capsule) 50 mg PO BEDTIME [facility] Last Admin: 04/13/24 21:18 Dose: 50 mg Fluoxetine HCl (Fluoxetine Hcl 20 Mg Capsule) 20 mg PO DAILY [facility] Last Admin: 04/14/24 09:01 Dose: 20 mg Gabapentin (Gabapentin 300 Mg Capsule) 300 mg PO TID [facility] Last Admin: 04/14/24 12:20 Dose: 300 mg Hydroxyzine HCl (Hydroxyzine Hcl 25 Mg Tablet) 25 mg PO Q6H PRN PRN Reason: Anxiety Last Admin: 04/13/24 14:37 Dose: 25 mg Ibuprofen (Ibuprofen 400 Mg Tablet) 400 mg PO Q6H PRN PRN Reason: aches Last Admin: 04/13/24 09:54 Dose: 400 mg Tensed Carbonate (Tensed Carbonate Er 450 Mg Tablet.Er) 450 mg PO BID [facility] Last Admin: 04/14/24 09:00 Dose: 450 mg Loperamide HCl (Loperamide Hcl 2 Mg Capsule) 2 mg PO Q4H PRN PRN Reason: diarrhea Magnesium Hydroxide (Milk Of Magnesia 30 Ml Oral.Susp) 30 ml PO DAILY PRN PRN Reason: Constipation Last Admin: 04/09/24 20:42 Dose: 30 ml Melatonin (Melatonin 3 Mg Tablet) 3 mg PO BEDTIME [facility] Last Admin: 04/13/24 21:20 Dose: 3 mg Methadone HCl (Methadone Hcl 20 Mg/2 Ml Oral.Conc) 130 mg PO DAILY [facility] Last Admin: 04/14/24 08:13 Dose: 130 mg Metronidazole (Metronidazole 500 Mg Tablet) 500 mg PO BID [facility] Stop: 04/17/24 20:59 Last Admin: 04/14/24 09:00 Dose: 500 mg Nicotine (Nicotine 21 Mg Patch.Td24) 21 mg TRANSDERMA DAILY [facility] Last Admin: 04/14/24 10:28 Dose: Not Given Nicotine Polacrilex (Nicotine Polacrilex 2 Mg Gum) 4 mg BUCCAL Q2H PRN PRN Reason: Nicotine Cravings Last Admin: 04/13/24 13:19 Dose: 4 mg Ondansetron HCl (Ondansetron Odt 4 Mg Tab.Rapdis) 4 mg TRANSLINGU Q6H PRN PRN Reason: Nausea and Vomiting Quetiapine Fumarate (Quetiapine Fumarate 50 Mg Tablet) 150 mg PO BID [facility] Last Admin: 04/14/24 09:01 Dose: 150 mg Senna/Docusate Sodium (Sennosides/Docusate Sodium Tablet) 2 tab PO BEDTIME [facility] Last Admin: 04/13/24 21:21 Dose: 2 tab Sodium Biphosphate/Sodium Phosphate (Sodium Phosphate,[place]-Dibasic 133 Ml Enema) 133 ml [place] ONCE PRN PRN Reason: constipation Last Admin: 04/10/24 17:09 Dose: 133 ml Sodium Biphosphate/Sodium Phosphate (Sodium Phosphate,[place]-Dibasic 133 Ml Enema) 133 ml [place] ONCE PRN PRN Reason: constipation Allergies Allergies Allergy/AdvReac Type Severity Reaction Status Date / Time Penicillins [PENICILLINS] Allergy Severe ANAPHYLAXIS Verified 04/07/24 18:14 soap [SOAP] Allergy Intermediate ITCHING Verified 04/07/24 18:14 aspirin [ASA] Allergy Unknown ANAPHYLAXIS Verified 04/07/24 18:14 cat dander [cats] Allergy Unknown moderately Verified 04/07/24 18:14 severe latex [LATEX] Allergy Unknown ANAPHYLAXIS Verified 04/07/24 18:14 tramadol [TRAMADOL] Allergy Unknown HIVES, Rash Verified 04/07/24 18:14 acetaminophen [From Tylenol] Allergy Hives Verified 04/07/24 18:14 squid Allergy Unknown Verified 04/07/24 18:14 trazodone AdvReac Severe restless Verified 04/07/24 18:14 legs Assessment & Plan Assessment & Plan (1) Depression: Status: Acute Code(s): F32.A - Depression, unspecified (2) Borderline personality disorder: Status: Acute Code(s): F60.3 - Borderline personality disorder (3) Polysubstance use disorder: Status: Acute Code(s): F19.90 - Other psychoactive substance use, unspecified, uncomplicated Plan 04/09: continue/restart home meds. comfort meds for opioid withdrawal. ativan per CIWA for alcohol withdrawal. supportive care for cocaine withdrawal. also requesting STI testing. 04/10: STI testing ordered. taper ativan over next 4 days. continue other meds otherwise. refer for rehab. 04/11: BV, trichy POS, getting flagyl x 1 week. hep C Ab POS. nodding off. continue ativan taper. 04/12: continue current mgmt. refer to rehabs. more awake than yesterday. 04/13: continue current mgmt. ativan taper is complete, pt is NOT in alcohol withdrawal and does not need more benzos despite her stating, without observed corroborating behaviors, i'm having hallucinations due to alcohol withdrawal. refer for rehabs. 04/14: c/o VH attributed to alcohol withdrawal, h/o Sz in alcohol withdrawal. reinforces pt is NOT in alcohol withdrawal and does not need ativan or other benzo. offers gabapentin for anx/Sz proph, pt agrees to trial. start 300 TID. Reason for continued inpatient stay Substantial Risk for: inability to function and rapid decompensation Time Spent With Patient Time: Total time managing care of this patient today __25__ minutes.
[2024-04-14] MEDS: hydrOXYzine HCL 25 MG TABLET PO (18:42)
[2024-04-14] MEDS: Nicotine Polacrilex 2 MG GUM 4 MG BUCCAL ×2 (18:42→20:28)
[2024-04-14 20:00] VITALS: BP 129/67; PULSE 68; RESP 16; TEMP 36.7; O2SAT 95
[2024-04-14] MEDS: diphenhydrAMINE HCL 25 MG CAPSULE 50 MG PO (20:17)
[2024-04-14] MEDS: cloNIDine HCL 0.2 MG TABLET PO (20:17)
[2024-04-14] MEDS: Melatonin 3 MG TABLET PO (20:17)
[2024-04-14] MEDS: Sennosides/Docusate Sodium TABLET 2 TAB PO (20:17)
[2024-04-15 07:55] VITALS: BP 113/65; PULSE 67; RESP 16; TEMP 36.9; O2SAT 95
[2024-04-15] MEDS: methADONE HCl 20 MG/2 ML ORAL.CONC 130 MG PO (08:21)
--- NOTE | 2024-04-15 08:29 | HO.PSYCHPN ---
Subjective Subjective Date of Service: 04/15/24 Reason For Visit: SI Subjective Notes: Conditional Voluntary Interim History: Sweating ? if she is in withdrawl from - taper benzo- 05/02 depression, 04/01 anxiety -denies current si changing to clonidine for anxiety but bp was low and had to be held Medication Compliance: Yes Side effects from medications: Yes (? xs sweating withdrawl from benzo check vitals) Attending Groups: Intermittent (mostly in room in her bed nursing reports) Review of Systems Acute medical concerns: No Medical Review of Systems: changed (sweating) Mental Status Exam Mental Status Exam Patient Appearance: Disheveled and Unkempt Patient Orientation: Person, Place, Time and Situation Level of Consciousness: Awake Patient Behavior: Passive and Avoidant Mood Description: Withdrawn Affect Description: Depressed and Anxious Patient Cognition Impaired: No Ability to Follow Directions: Fair Speech Pattern: Clear Hallucinations: None Delusions: Not Present Thought Process: Intact and Goal Oriented Depressive Symptoms: Loss of Energy and Difficulty Concentrating Judgement: Fair Diagnostics Vital Signs (24Hr): Vital Signs - 24 hr 04/14/24 20:00 04/15/24 07:55 Temperature 98.0 F 98.4 F Pulse Rate 68 67 Respiratory Rate 16 16 Blood Pressure 129/67 113/65 Pulse Oximetry 95 95 Oxygen Delivery Method Room Air Room Air BMI result Body Mass Index 30.0 Labs 04/07/24 18:23 04/07/24 18:23 Imaging Radiology Impressions: ITS Impressions Chest X-Ray 04/07/24 20:08 IMPRESSION: No acute cardiopulmonary disease. Medications Medications Current Medications Al Hydroxide/Mg Hydroxide (Magnesium Hydrox/Alum Hydrox 30 Ml Oral.Susp) 30 ml PO Q6H PRN PRN Reason: Heartburn/Nausea Albuterol Sulfate (Albuterol Sulfate 90 Mcg 8 Gm Inhaler) 2 puff INHALE Q4H PRN PRN Reason: Shortness of Breath Baclofen (Baclofen 20 Mg Tablet) 20 mg PO BID [facility] Last Admin: 04/14/24 20:17 Dose: 20 mg Buspirone HCl (Buspirone Hcl 10 Mg Tablet) 10 mg PO TID [facility] Last Admin: 04/14/24 20:17 Dose: 10 mg Clonidine HCl (Clonidine Hcl 0.2 Mg Tablet) 0.2 mg PO BEDTIME [facility]; Protocol Last Admin: 04/14/24 20:17 Dose: 0.2 mg Clonidine HCl (Clonidine Hcl 0.1 Mg Tablet) 0.1 mg PO Q4H PRN; Protocol PRN Reason: opioid w/drawal Sx Last Admin: 04/13/24 13:19 Dose: 0.1 mg Dicyclomine HCl (Dicyclomine Hcl 10 Mg Capsule) 10 mg PO QIDACHS PRN PRN Reason: spasm Last Admin: 04/10/24 22:09 Dose: 10 mg Diphenhydramine HCl (Diphenhydramine Hcl 25 Mg Capsule) 50 mg PO BEDTIME [facility] Last Admin: 04/14/24 20:17 Dose: 50 mg Fluoxetine HCl (Fluoxetine Hcl 20 Mg Capsule) 20 mg PO DAILY [facility] Last Admin: 04/14/24 09:01 Dose: 20 mg Gabapentin (Gabapentin 300 Mg Capsule) 300 mg PO TID [facility] Last Admin: 04/14/24 20:17 Dose: 300 mg Hydroxyzine HCl (Hydroxyzine Hcl 25 Mg Tablet) 25 mg PO Q6H PRN PRN Reason: Anxiety Last Admin: 04/14/24 18:42 Dose: 25 mg Ibuprofen (Ibuprofen 400 Mg Tablet) 400 mg PO Q6H PRN PRN Reason: aches Last Admin: 04/13/24 09:54 Dose: 400 mg [place] Carbonate ([place] Carbonate Er 450 Mg Tablet.Er) 450 mg PO BID [facility] Last Admin: 04/14/24 20:17 Dose: 450 mg Loperamide HCl (Loperamide Hcl 2 Mg Capsule) 2 mg PO Q4H PRN PRN Reason: diarrhea Magnesium Hydroxide (Milk Of Magnesia 30 Ml Oral.Susp) 30 ml PO DAILY PRN PRN Reason: Constipation Last Admin: 04/09/24 20:42 Dose: 30 ml Melatonin (Melatonin 3 Mg Tablet) 3 mg PO BEDTIME [facility] Last Admin: 04/14/24 20:17 Dose: 3 mg Methadone HCl (Methadone Hcl 20 Mg/2 Ml Oral.Conc) 130 mg PO DAILY [facility] Last Admin: 04/15/24 08:21 Dose: 130 mg Metronidazole (Metronidazole 500 Mg Tablet) 500 mg PO BID [facility] Stop: 04/17/24 20:59 Last Admin: 04/14/24 20:17 Dose: 500 mg Nicotine (Nicotine 21 Mg Patch.Td24) 21 mg TRANSDERMA DAILY [facility] Last Admin: 04/14/24 10:28 Dose: Not Given Nicotine Polacrilex (Nicotine Polacrilex 2 Mg Gum) 4 mg BUCCAL Q2H PRN PRN Reason: Nicotine Cravings Last Admin: 04/14/24 20:28 Dose: 4 mg Ondansetron HCl (Ondansetron Odt 4 Mg Tab.Rapdis) 4 mg TRANSLINGU Q6H PRN PRN Reason: Nausea and Vomiting Quetiapine Fumarate (Quetiapine Fumarate 50 Mg Tablet) 150 mg PO BID [facility] Last Admin: 04/14/24 20:17 Dose: 150 mg Senna/Docusate Sodium (Sennosides/Docusate Sodium Tablet) 2 tab PO BEDTIME [facility] Last Admin: 04/14/24 20:17 Dose: 2 tab Sodium Biphosphate/Sodium Phosphate (Sodium Phosphate,[place]-Dibasic 133 Ml Enema) 133 ml [place] ONCE PRN PRN Reason: constipation Last Admin: 04/10/24 17:09 Dose: 133 ml Sodium Biphosphate/Sodium Phosphate (Sodium Phosphate,[place]-Dibasic 133 Ml Enema) 133 ml [place] ONCE PRN PRN Reason: constipation Allergies Allergies Allergy/AdvReac Type Severity Reaction Status Date / Time Penicillins [PENICILLINS] Allergy Severe ANAPHYLAXIS Verified 04/07/24 18:14 soap [SOAP] Allergy Intermediate ITCHING Verified 04/07/24 18:14 aspirin [ASA] Allergy Unknown ANAPHYLAXIS Verified 04/07/24 18:14 cat dander [cats] Allergy Unknown moderately Verified 04/07/24 18:14 severe latex [LATEX] Allergy Unknown ANAPHYLAXIS Verified 04/07/24 18:14 tramadol [TRAMADOL] Allergy Unknown HIVES, Rash Verified 04/07/24 18:14 acetaminophen [From Tylenol] Allergy Hives Verified 04/07/24 18:14 squid Allergy Unknown Verified 04/07/24 18:14 trazodone AdvReac Severe restless Verified 04/07/24 18:14 legs Assessment & Plan Assessment & Plan (1) Depression: Status: Acute Code(s): F32.A - Depression, unspecified (2) Borderline personality disorder: Status: Acute Code(s): F60.3 - Borderline personality disorder (3) Polysubstance use disorder: Status: Acute Code(s): F19.90 - Other psychoactive substance use, unspecified, uncomplicated Assessment and Plan: 04/15 no elevation of pulse or bp - despite sweating Plan 04/09: continue/restart home meds. comfort meds for opioid withdrawal. ativan per [facility]WA for alcohol withdrawal. supportive care for cocaine withdrawal. also requesting STI testing. 04/10: STI testing ordered. taper ativan over next 4 days. continue other meds otherwise. refer for rehab. 04/11: BV, trichy POS, getting flagyl x 1 week. hep C Ab POS. nodding off. continue ativan taper. 04/12: continue current mgmt. refer to rehabs. more awake than yesterday. 04/13: continue current mgmt. ativan taper is complete, pt is NOT in alcohol withdrawal and does not need more benzos despite her stating, without observed corroborating behaviors, i'm having hallucinations due to alcohol withdrawal. refer for rehabs. 04/14: c/o VH attributed to alcohol withdrawal, h/o Sz in alcohol withdrawal. reinforces pt is NOT in alcohol withdrawal and does not need ativan or other benzo. offers gabapentin for anx/Sz proph, pt agrees to trial. start 300 TID. CTP no vital sx indicating withdrawl- Patient educated on: medication risk/benefits, substance abuse and therapeutic strategies Informed Consent: further education needed Reason for continued inpatient stay Substantial Risk for: inability to function, rapid decompensation and med/psych decompensation Time Spent With Patient Time: Total time managing care of this patient today ____ minutes.
[2024-04-15] MEDS: Baclofen 20 MG TABLET PO ×2 (08:52→21:15)
[2024-04-15] MEDS: Lithium Carbonate ER 450 MG TABLET.ER PO ×2 (08:52→21:14)
[2024-04-15] MEDS: FLUoxetine HCl 20 MG CAPSULE PO (08:52)
[2024-04-15] MEDS: Gabapentin 300 MG CAPSULE PO ×3 (08:52→21:14)
[2024-04-15] MEDS: QUEtiapine Fumarate 50 MG TABLET 150 MG PO ×2 (08:52→21:14)
[2024-04-15] MEDS: metroNIDAZOLE 500 MG TABLET PO ×2 (08:52→21:14)
[2024-04-15] MEDS: busPIRone HCl 10 MG TABLET PO ×3 (08:52→21:14)
[2024-04-15] MEDS: Ibuprofen 400 MG TABLET PO (09:41)
[2024-04-15 21:00] VITALS: BP 117/58; PULSE 74; RESP 16; TEMP 37.1; O2SAT 96
[2024-04-15] MEDS: cloNIDine HCL 0.2 MG TABLET PO (21:14)
[2024-04-15] MEDS: diphenhydrAMINE HCL 25 MG CAPSULE 50 MG PO (21:14)
[2024-04-15] MEDS: Melatonin 3 MG TABLET PO (21:14)
[2024-04-15] MEDS: Sennosides/Docusate Sodium TABLET 2 TAB PO (21:14)
[2024-04-16 08:00] VITALS: BP 97/61; PULSE 64; RESP 14; TEMP 36.8; O2SAT 97
[2024-04-16] MEDS: methADONE HCl 20 MG/2 ML ORAL.CONC 130 MG PO (08:03)
[2024-04-16] MEDS: busPIRone HCl 10 MG TABLET PO ×3 (09:00→20:51)
[2024-04-16] MEDS: FLUoxetine HCl 20 MG CAPSULE PO (09:00)
[2024-04-16] MEDS: metroNIDAZOLE 500 MG TABLET PO ×2 (09:00→20:50)
[2024-04-16] MEDS: Lithium Carbonate ER 450 MG TABLET.ER PO ×2 (09:00→20:50)
[2024-04-16] MEDS: Baclofen 20 MG TABLET PO ×2 (09:00→20:51)
[2024-04-16] MEDS: Gabapentin 300 MG CAPSULE PO (09:00)
[2024-04-16] MEDS: QUEtiapine Fumarate 50 MG TABLET 150 MG PO ×2 (09:00→20:50)
[2024-04-16] MEDS: Gabapentin 400 MG CAPSULE PO ×2 (15:14→20:51)
[2024-04-16] MEDS: FLUoxetine HCl 10 MG CAPSULE PO (15:14)
[2024-04-16 20:45] VITALS: BP 107/63; PULSE 62; RESP 18; TEMP 36.2; O2SAT 97
[2024-04-16 20:50] VITALS: BP 107/63
[2024-04-16] MEDS: cloNIDine HCL 0.2 MG TABLET PO (20:50)
[2024-04-16] MEDS: Sennosides/Docusate Sodium TABLET 2 TAB PO (20:51)
[2024-04-16] MEDS: Melatonin 3 MG TABLET PO (20:51)
[2024-04-16] MEDS: diphenhydrAMINE HCL 25 MG CAPSULE 50 MG PO (20:51)
[2024-04-16] MEDS: Milk of Magnesia 30 ML ORAL.SUSP PO (21:00)
[2024-04-17 07:44] VITALS: BP 85/46; PULSE 65; TEMP 36.9; O2SAT 95
--- NOTE | 2024-04-17 07:44 | P.PNPSI_ITS ---
Subjective Subjective Date of Service: 04/16/24 Reason For Visit: SI Subjective Notes: Conditional Voluntary Medical Problems Affecting Mental Status: No (though thinks she is benzo withdrawl) Interim History: 33 yo with continued anxiety and sweating- vss- says it is always like this asks for inc gabaoentin which I think I already increased for today from 300 tid to 400mg tid-= denies current si- mostly isolated taking meals in room Medication Compliance: Yes Side effects from medications: No Attending Groups: Intermittent Review of Systems Acute medical concerns: No vss sweating less today - Medical Review of Systems: unchanged Mental Status Exam Mental Status Exam Patient Appearance: Well Grooomed and Perspiring (less today then yesterday - wondering if it might have been med s/e) Patient Orientation: Person, Place, Time and Situation Level of Consciousness: Awake Patient Behavior: Appropriate, Cooperative and Avoidant Mood Description: Withdrawn, Anxious and Sad Affect Description: Blunted Patient Cognition Impaired: No Ability to Follow Directions: Fair Speech Pattern: Clear Hallucinations: None Delusions: Not Present Thought Process: Intact and Goal Oriented Thought Content: positive for Intact Depressive Symptoms: Increased Anxiety, Diff. Making Decisions, Muscle Tension, Loss of Energy and Difficulty Concentrating Judgement: Fair Diagnostics Vital Signs (24Hr): Vital Signs - 24 hr 04/16/24 08:00 04/16/24 20:45 04/16/24 20:50 Temperature 98.2 F 97.2 F Pulse Rate 64 62 Respiratory Rate 14 18 Blood Pressure 97/61 107/63 107/63 Pulse Oximetry 97 97 Oxygen Delivery Method Room Air Room Air BMI result Body Mass Index 30.0 Labs 04/07/24 18:23 04/07/24 18:23 Imaging Radiology Impressions: ITS Impressions Chest X-Ray 04/07/24 20:08 IMPRESSION: No acute cardiopulmonary disease. Medications Medications Current Medications Al Hydroxide/Mg Hydroxide (Magnesium Hydrox/Alum Hydrox 30 Ml Oral.Susp) 30 ml PO Q6H PRN PRN Reason: Heartburn/Nausea Albuterol Sulfate (Albuterol Sulfate 90 Mcg 8 Gm Inhaler) 2 puff INHALE Q4H PRN PRN Reason: Shortness of Breath Baclofen (Baclofen 20 Mg Tablet) 20 mg PO BID [facility] Last Admin: 04/16/24 20:51 Dose: 20 mg Buspirone HCl (Buspirone Hcl 10 Mg Tablet) 10 mg PO TID [facility] Last Admin: 04/16/24 20:51 Dose: 10 mg Clonidine HCl (Clonidine Hcl 0.2 Mg Tablet) 0.2 mg PO BEDTIME [facility]; Protocol Last Admin: 04/16/24 20:50 Dose: 0.2 mg Clonidine HCl (Clonidine Hcl 0.1 Mg Tablet) 0.1 mg PO Q4H PRN; Protocol PRN Reason: opioid w/drawal Sx Last Admin: 04/13/24 13:19 Dose: 0.1 mg Dicyclomine HCl (Dicyclomine Hcl 10 Mg Capsule) 10 mg PO QIDACHS PRN PRN Reason: spasm Last Admin: 04/10/24 22:09 Dose: 10 mg Diphenhydramine HCl (Diphenhydramine Hcl 25 Mg Capsule) 50 mg PO BEDTIME [facility] Last Admin: 04/16/24 20:51 Dose: 50 mg Fluoxetine HCl (Fluoxetine Hcl 10 Mg Capsule) 30 mg PO DAILY [facility] Gabapentin (Gabapentin 400 Mg Capsule) 400 mg PO TID [facility] Last Admin: 04/16/24 20:51 Dose: 400 mg Hydroxyzine HCl (Hydroxyzine Hcl 25 Mg Tablet) 25 mg PO Q6H PRN PRN Reason: Anxiety Last Admin: 04/14/24 18:42 Dose: 25 mg Ibuprofen (Ibuprofen 400 Mg Tablet) 400 mg PO Q6H PRN PRN Reason: aches Last Admin: 04/15/24 09:41 Dose: 400 mg [place] Carbonate ([place] Carbonate Er 450 Mg Tablet.Er) 450 mg PO BID [facility] Last Admin: 04/16/24 20:50 Dose: 450 mg Loperamide HCl (Loperamide Hcl 2 Mg Capsule) 2 mg PO Q4H PRN PRN Reason: diarrhea Magnesium Hydroxide (Milk Of Magnesia 30 Ml Oral.Susp) 30 ml PO DAILY PRN PRN Reason: Constipation Last Admin: 04/16/24 21:00 Dose: 30 ml Melatonin (Melatonin 3 Mg Tablet) 3 mg PO BEDTIME [facility] Last Admin: 04/16/24 20:51 Dose: 3 mg Methadone HCl (Methadone Hcl 20 Mg/2 Ml Oral.Conc) 130 mg PO DAILY@0800 [facility] Last Admin: 04/16/24 08:03 Dose: 130 mg Metronidazole (Metronidazole 500 Mg Tablet) 500 mg PO BID [facility] Stop: 04/17/24 20:59 Last Admin: 04/16/24 20:50 Dose: 500 mg Nicotine (Nicotine 21 Mg Patch.Td24) 21 mg TRANSDERMA DAILY [facility] Last Admin: 04/16/24 09:01 Dose: Not Given Nicotine Polacrilex (Nicotine Polacrilex 2 Mg Gum) 4 mg BUCCAL Q2H PRN PRN Reason: Nicotine Cravings Last Admin: 04/14/24 20:28 Dose: 4 mg Ondansetron HCl (Ondansetron Odt 4 Mg Tab.Rapdis) 4 mg TRANSLINGU Q6H PRN PRN Reason: Nausea and Vomiting Quetiapine Fumarate (Quetiapine Fumarate 50 Mg Tablet) 150 mg PO BID [facility] Last Admin: 04/16/24 20:50 Dose: 150 mg Senna/Docusate Sodium (Sennosides/Docusate Sodium Tablet) 2 tab PO BEDTIME [facility] Last Admin: 04/16/24 20:51 Dose: 2 tab Sodium Biphosphate/Sodium Phosphate (Sodium Phosphate,[place]-Dibasic 133 Ml Enema) 133 ml [place] ONCE PRN PRN Reason: constipation Last Admin: 04/10/24 17:09 Dose: 133 ml Sodium Biphosphate/Sodium Phosphate (Sodium Phosphate,[place]-Dibasic 133 Ml Enema) 133 ml [place] ONCE PRN PRN Reason: constipation Allergies Allergies Allergy/AdvReac Type Severity Reaction Status Date / Time Penicillins [PENICILLINS] Allergy Severe ANAPHYLAXIS Verified 04/07/24 18:14 soap [SOAP] Allergy Intermediate ITCHING Verified 04/07/24 18:14 aspirin [ASA] Allergy Unknown ANAPHYLAXIS Verified 04/07/24 18:14 cat dander [cats] Allergy Unknown moderately Verified 04/07/24 18:14 severe latex [LATEX] Allergy Unknown ANAPHYLAXIS Verified 04/07/24 18:14 tramadol [TRAMADOL] Allergy Unknown HIVES, Rash Verified 04/07/24 18:14 acetaminophen [From Tylenol] Allergy Hives Verified 04/07/24 18:14 squid Allergy Unknown Verified 04/07/24 18:14 trazodone AdvReac Severe restless Verified 04/07/24 18:14 legs Assessment & Plan Assessment & Plan (1) Depression: Status: Acute Code(s): F32.A - Depression, unspecified (2) Borderline personality disorder: Status: Acute Code(s): F60.3 - Borderline personality disorder (3) Polysubstance use disorder: Status: Acute Code(s): F19.90 - Other psychoactive substance use, unspecified, uncomplicated Assessment and Plan: 04/15 no elevation of pulse or bp - despite sweating Plan 04/09: continue/restart home meds. comfort meds for opioid withdrawal. ativan per [facility]WA for alcohol withdrawal. supportive care for cocaine withdrawal. also requesting STI testing. 04/10: STI testing ordered. taper ativan over next 4 days. continue other meds otherwise. refer for rehab. 04/11: BV, trichy POS, getting flagyl x 1 week. hep C Ab POS. nodding off. continue ativan taper. 04/12: continue current mgmt. refer to rehabs. more awake than yesterday. 04/13: continue current mgmt. ativan taper is complete, pt is NOT in alcohol withdrawal and does not need more benzos despite her stating, without observed corroborating behaviors, i'm having hallucinations due to alcohol withdrawal. refer for rehabs. 04/14: c/o VH attributed to alcohol withdrawal, h/o Sz in alcohol withdrawal. MD reinforces pt is NOT in alcohol withdrawal and does not need ativan or other benzo. offers gabapentin for anx/Sz proph, pt agrees to trial. start 300 TID. 04/15/CTP no vital sx indicating withdrawl- 04/16 CTP gabapentin inc to 400mg tid last pm - Patient educated on: medication risk/benefits and substance abuse Informed Consent: understands Reason for continued inpatient stay Substantial Risk for: rapid decompensation Time Spent With Patient Time: Total time managing care of this patient today ____ minutes.
[2024-04-17] MEDS: methADONE HCl 20 MG/2 ML ORAL.CONC 130 MG PO (08:12)
[2024-04-17] MEDS: metroNIDAZOLE 500 MG TABLET PO (09:54)
[2024-04-17] MEDS: Lithium Carbonate ER 450 MG TABLET.ER PO ×2 (09:54→20:54)
[2024-04-17] MEDS: busPIRone HCl 10 MG TABLET PO ×3 (09:54→20:56)
[2024-04-17] MEDS: QUEtiapine Fumarate 50 MG TABLET 150 MG PO ×2 (09:54→20:51)
[2024-04-17] MEDS: FLUoxetine HCl 10 MG CAPSULE 30 MG PO (09:54)
[2024-04-17] MEDS: Gabapentin 400 MG CAPSULE PO ×3 (09:55→20:54)
[2024-04-17] MEDS: Nicotine 21 MG PATCH.TD24 TRANSDERMA (09:55)
[2024-04-17] MEDS: Baclofen 20 MG TABLET PO ×2 (09:55→20:55)
--- NOTE | 2024-04-17 09:58 | P.PNPSI_ITS ---
Subjective Subjective Date of Service: 04/17/24 Reason For Visit: SI Subjective Notes: Conditional Voluntary Interim History: Reviewed with Dr. Ramirez. Keeping to self. Patient reports feeling anxious and depressed ; pt encouraged to attend groups. Patient stated, being around people makes me nervous but I am going to try to go to one group today . Patient denies SI/HI/VH/AH. Per nursing report, slept 8 hours last night. Medication Compliance: Yes Side effects from medications: No Attending Groups: No Review of Systems Constitutional: Reports as per HPI Eyes: Reports as per HPI Reports as per HPI Cardiovascular: Reports as per HPI Respiratory: Reports as per HPI Gastrointestinal: Reports as per HPI Genitourinary: Reports as per HPI Musculoskeletal: Reports as per HPI Skin/Breast: Reports as per HPI Reports as per HPI Psychiatric: Reports as per HPI Endocrine: Reports as per HPI Hematologic/Lymphatic: Reports as per HPI Allergic/Immunologic: Reports as per HPI Mental Status Exam Mental Status Exam Narrative: Pt is alert and oriented; behavior is cooperative and calm; dressed in casual attire; mood is described as anxious and depressed ; eye contact appropriate; Speech is normal rate, volume and not pressured; thought process is organized and goal directed; Thought content is on tx; denies SI/HI/AH/VH. Diagnostics Vital Signs (24Hr): Vital Signs - 24 hr 04/16/24 20:45 04/16/24 20:50 04/17/24 07:44 Temperature 97.2 F 98.5 F Pulse Rate 62 65 Respiratory Rate 18 Blood Pressure 107/63 107/63 85/46 L Pulse Oximetry 97 95 Oxygen Delivery Method Room Air Room Air BMI result Body Mass Index 30.0 Labs 04/07/24 18:23 04/07/24 18:23 Imaging Radiology Impressions: ITS Impressions Chest X-Ray 04/07/24 20:08 IMPRESSION: No acute cardiopulmonary disease. Medications Medications Current Medications Al Hydroxide/Mg Hydroxide (Magnesium Hydrox/Alum Hydrox 30 Ml Oral.Susp) 30 ml PO Q6H PRN PRN Reason: Heartburn/Nausea Albuterol Sulfate (Albuterol Sulfate 90 Mcg 8 Gm Inhaler) 2 puff INHALE Q4H PRN PRN Reason: Shortness of Breath Baclofen (Baclofen 20 Mg Tablet) 20 mg PO BID [facility] Last Admin: 04/16/24 20:51 Dose: 20 mg Buspirone HCl (Buspirone Hcl 10 Mg Tablet) 10 mg PO TID [facility] Last Admin: 04/16/24 20:51 Dose: 10 mg Clonidine HCl (Clonidine Hcl 0.2 Mg Tablet) 0.2 mg PO BEDTIME [facility]; Protocol Last Admin: 04/16/24 20:50 Dose: 0.2 mg Clonidine HCl (Clonidine Hcl 0.1 Mg Tablet) 0.1 mg PO Q4H PRN; Protocol PRN Reason: opioid w/drawal Sx Last Admin: 04/13/24 13:19 Dose: 0.1 mg Dicyclomine HCl (Dicyclomine Hcl 10 Mg Capsule) 10 mg PO QIDACHS PRN PRN Reason: spasm Last Admin: 04/10/24 22:09 Dose: 10 mg Diphenhydramine HCl (Diphenhydramine Hcl 25 Mg Capsule) 50 mg PO BEDTIME [facility] Last Admin: 04/16/24 20:51 Dose: 50 mg Fluoxetine HCl (Fluoxetine Hcl 10 Mg Capsule) 30 mg PO DAILY [facility] Gabapentin (Gabapentin 400 Mg Capsule) 400 mg PO TID [facility] Last Admin: 04/16/24 20:51 Dose: 400 mg Hydroxyzine HCl (Hydroxyzine Hcl 25 Mg Tablet) 25 mg PO Q6H PRN PRN Reason: Anxiety Last Admin: 04/14/24 18:42 Dose: 25 mg Ibuprofen (Ibuprofen 400 Mg Tablet) 400 mg PO Q6H PRN PRN Reason: aches Last Admin: 04/15/24 09:41 Dose: 400 mg [place] Carbonate ([place] Carbonate Er 450 Mg Tablet.Er) 450 mg PO BID [facility] Last Admin: 04/16/24 20:50 Dose: 450 mg Loperamide HCl (Loperamide Hcl 2 Mg Capsule) 2 mg PO Q4H PRN PRN Reason: diarrhea Magnesium Hydroxide (Milk Of Magnesia 30 Ml Oral.Susp) 30 ml PO DAILY PRN PRN Reason: Constipation Last Admin: 04/16/24 21:00 Dose: 30 ml Melatonin (Melatonin 3 Mg Tablet) 3 mg PO BEDTIME [facility] Last Admin: 04/16/24 20:51 Dose: 3 mg Methadone HCl (Methadone Hcl 20 Mg/2 Ml Oral.Conc) 130 mg PO DAILY@0800 [facility] Last Admin: 04/17/24 08:12 Dose: 130 mg Metronidazole (Metronidazole 500 Mg Tablet) 500 mg PO BID [facility] Stop: 04/17/24 20:59 Last Admin: 04/16/24 20:50 Dose: 500 mg Nicotine (Nicotine 21 Mg Patch.Td24) 21 mg TRANSDERMA DAILY [facility] Last Admin: 04/16/24 09:01 Dose: Not Given Nicotine Polacrilex (Nicotine Polacrilex 2 Mg Gum) 4 mg BUCCAL Q2H PRN PRN Reason: Nicotine Cravings Last Admin: 04/14/24 20:28 Dose: 4 mg Ondansetron HCl (Ondansetron Odt 4 Mg Tab.Rapdis) 4 mg TRANSLINGU Q6H PRN PRN Reason: Nausea and Vomiting Quetiapine Fumarate (Quetiapine Fumarate 50 Mg Tablet) 150 mg PO BID [facility] Last Admin: 04/16/24 20:50 Dose: 150 mg Senna/Docusate Sodium (Sennosides/Docusate Sodium Tablet) 2 tab PO BEDTIME [facility] Last Admin: 04/16/24 20:51 Dose: 2 tab Sodium Biphosphate/Sodium Phosphate (Sodium Phosphate,[place]-Dibasic 133 Ml Enema) 133 ml [place] ONCE PRN PRN Reason: constipation Last Admin: 04/10/24 17:09 Dose: 133 ml Sodium Biphosphate/Sodium Phosphate (Sodium Phosphate,[place]-Dibasic 133 Ml Enema) 133 ml [place] ONCE PRN PRN Reason: constipation Allergies Allergies Allergy/AdvReac Type Severity Reaction Status Date / Time Penicillins [PENICILLINS] Allergy Severe ANAPHYLAXIS Verified 04/07/24 18:14 soap [SOAP] Allergy Intermediate ITCHING Verified 04/07/24 18:14 aspirin [ASA] Allergy Unknown ANAPHYLAXIS Verified 04/07/24 18:14 cat dander [cats] Allergy Unknown moderately Verified 04/07/24 18:14 severe latex [LATEX] Allergy Unknown ANAPHYLAXIS Verified 04/07/24 18:14 tramadol [TRAMADOL] Allergy Unknown HIVES, Rash Verified 04/07/24 18:14 acetaminophen [From Tylenol] Allergy Hives Verified 04/07/24 18:14 squid Allergy Unknown Verified 04/07/24 18:14 trazodone AdvReac Severe restless Verified 04/07/24 18:14 legs Assessment & Plan Assessment & Plan (1) Depression: Status: Acute Code(s): F32.A - Depression, unspecified (2) Borderline personality disorder: Status: Acute Code(s): F60.3 - Borderline personality disorder (3) Polysubstance use disorder: Status: Acute Code(s): F19.90 - Other psychoactive substance use, unspecified, uncomplicated Assessment and Plan: 04/15 no elevation of pulse or bp - despite sweating Plan 04/09: continue/restart home meds. comfort meds for opioid withdrawal. ativan per [facility]WA for alcohol withdrawal. supportive care for cocaine withdrawal. also requesting STI testing. 04/10: STI testing ordered. taper ativan over next 4 days. continue other meds otherwise. refer for rehab. 04/11: BV, trichy POS, getting flagyl x 1 week. hep C Ab POS. nodding off. continue ativan taper. 04/12: continue current mgmt. refer to rehabs. more awake than yesterday. 04/13: continue current mgmt. ativan taper is complete, pt is NOT in alcohol withdrawal and does not need more benzos despite her stating, without observed corroborating behaviors, i'm having hallucinations due to alcohol withdrawal. refer for rehabs. 04/14: c/o VH attributed to alcohol withdrawal, h/o Sz in alcohol withdrawal. MD reinforces pt is NOT in alcohol withdrawal and does not need ativan or other benzo. MD offers gabapentin for anx/Sz proph, pt agrees to trial. start 300 TID. 04/15/CTP no vital sx indicating withdrawl- 04/17: Keeping to self. Patient reports feeling anxious and depressed ; pt encouraged to attend groups. Patient stated, being around people makes me nervous but I am going to try to go to one group today . Patient denies SI/HI/VH/AH. Per nursing report, slept 8 hours last night. Continue current treatment plan. Patient educated on: diagnosis, medication risk/benefits and therapeutic strategies Reason for continued inpatient stay Substantial Risk for: med/psych decompensation Time Spent With Patient Time: Total time managing care of this patient today _20___ minutes.
[2024-04-17] MEDS: hydrOXYzine HCL 25 MG TABLET PO (12:22)
[2024-04-17 20:50] VITALS: BP 101/60; PULSE 70; RESP 16; TEMP 37.1; O2SAT 96
[2024-04-17] MEDS: diphenhydrAMINE HCL 25 MG CAPSULE 50 MG PO (20:51)
[2024-04-17 20:53] VITALS: BP 101/60
[2024-04-17] MEDS: cloNIDine HCL 0.2 MG TABLET PO (20:53)
[2024-04-17] MEDS: Sennosides/Docusate Sodium TABLET 2 TAB PO (20:55)
[2024-04-17] MEDS: Melatonin 3 MG TABLET PO (20:56)
[2024-04-18 07:31] VITALS: BP 85/50; PULSE 62; RESP 18; TEMP 36.9; O2SAT 100
[2024-04-18] MEDS: methADONE HCl 20 MG/2 ML ORAL.CONC 130 MG PO (08:12)
[2024-04-18 08:21] VITALS: BP 103/61; PULSE 56
[2024-04-18] MEDS: QUEtiapine Fumarate 50 MG TABLET 150 MG PO (08:22)
[2024-04-18] MEDS: FLUoxetine HCl 10 MG CAPSULE 30 MG PO (08:23)
[2024-04-18] MEDS: busPIRone HCl 10 MG TABLET PO (08:23)
[2024-04-18] MEDS: Baclofen 20 MG TABLET PO (08:23)
[2024-04-18] MEDS: Lithium Carbonate ER 450 MG TABLET.ER PO (08:23)
[2024-04-18] MEDS: Gabapentin 400 MG CAPSULE PO (08:23)
[2024-04-18] MEDS: Sodium Phosphate,Mono-Dibasic 133 ML ENEMA PR (09:50)
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
[2024-04-18] MEDS: Nicotine 21 MG PATCH.TD24 TRANSDERMA (11:38)
[2024-04-18] MEDS: Nicotine Polacrilex 2 MG GUM 4 MG BUCCAL (11:39)
== END 2024-04-18 11:45 | DRG 752 ==
LOC: HO.ED 04-08 02:52 → HO.PADLT16 04-09 11:26
PROVIDERS: Physician Assistant; Admitting Provider Psychiatry & Neurology Psychiatry; Emergency Provider Emergency Medicine; Visit Provider Psychiatry & Neurology Psychiatry
DX: F60.3 Borderline personality disorder (principal); R45.851 Suicidal ideations; F17.210 Nicotine dependence, cigarettes, uncomplicated; A59.01 Trichomonal vulvovaginitis; F11.23 Opioid dependence with withdrawal; F32.A Depression, unspecified; F19.90 Other psychoactive substance use, unspecified, uncomplicated; N76.0 Acute vaginitis; F43.12 Post-traumatic stress disorder, chronic; Z71.6 Tobacco abuse counseling; Z20.822 Contact with and (suspected) exposure to COVID-19; Z91.51 Personal history of suicidal behavior; Z91.52 Personal history of nonsuicidal self-harm; Z59.02 Unsheltered homelessness; Z79.899 Other long term (current) drug therapy
CPT/HCPCS: 0241U; 0352U; 36415; 71046; 80048; 80061; 80076; 80178; 80307; 81001; 81025; 82607; 82746; 83036; 83690; 83735; 83880; 84439; 84443; 84484; 85025; 85379; 85652; 86140; 86780; 86803; 87389; 87491; 87591; 92950; 93005; 94640; 99285; S9485

== ENCOUNTER → 2024-04-09 11:23 | Outpatient (BNV) | payer OTHER, SELFPAY | PROVIDERS: Admitting Provider Psychiatry & Neurology Psychiatry; Emergency Provider Emergency Medicine; Visit Provider Psychiatry & Neurology Psychiatry | DX: F60.3 Borderline personality disorder (principal); F32.2 Major depressive disorder, single episode, severe without psychotic features; F19.90 Other psychoactive substance use, unspecified, uncomplicated | CPT/HCPCS: 90792; 99231; 99232; 99239 ==

== ENCOUNTER 2024-05-19 08:23 | Inpatient (IN) | payer OTHER, SELFPAY ==
--- NOTE | 2024-05-19 | ECG_ITS ---
Test Reason : RULE OUT QTC PROLONGATION Blood Pressure : / mmHG Vent. Rate : 056 BPM Atrial Rate : 056 BPM P-R Int : 138 ms QRS Dur : 078 ms QT Int : 450 ms P-R-T Axes : 037 061 046 degrees QTc Int : 434 ms Sinus bradycardia Nonspecific T wave abnormality Abnormal ECG When compared with ECG of 09-APR-2024 12:13, No significant change was found Referred By: Tunde Ferrari Electronically Signed By:SUBHA HER
--- NOTE | ~2024-05-19 | XR_ITS ---
EXAMINATION: XR CHEST CLINICAL INFORMATION: Cough. Malaise. COMPARISON: Chest radiograph from 04/07/2024. TECHNIQUE: Frontal view of the chest was obtained. FINDINGS: The lungs are mildly hypoexpanded with crowding of the cardiac/lower mediastinal structures. Mild streaky bibasilar opacities suggestive of subsegmental atelectasis. No dense focal consolidative process. No evidence of pleural effusion, pulmonary edema, or pneumothorax. The cardiomediastinal silhouette is within normal limits. No acute osseous abnormalities. XR/XR chest 1V IMPRESSION: Mildly low lung volumes with mild bibasilar subsegmental atelectasis. No dense focal consolidative process. Electronically signed by: Woo Taylor DO 05/23/2024 07:20 PM EDT
[2024-05-19 08:36] VITALS: BP 102/64; BP 106/72; PULSE 72; PULSE 74; RESP 14; TEMP 37.1; O2SAT 95
[2024-05-19 08:40] VITALS: RESP 16
--- NOTE | 2024-05-19 08:40 | ED_ITS ---
HPI - Psych General Chief Complaint: Psychiatric Symptoms Stated Complaint: SI W/PLAN,-HI PER EMS Source: patient and EMS Mode of arrival: EMS Limitations: no limitations History of Present Illness ED Provider: Lani LANZA HPI Narrative: This is a 33-year-old female history of IVDA, polysubstance abuse, borderline personality disorder, asthma presenting to the emergency department with suicidal ideation with plan to overdose, reports increasing life stressors. Denies visual, auditory and tactile hallucinations. Has been using IV drugs heroin, last use a few days ago. Endorses drinking hooch over the past week+, last drink yesterday. Reports hx of alcohol withdrawal and seizures. She reports history of overdoses in the past in attempt to end her life. Denies endorses mild headache. Denies chest pain, shortness of breath, nausea vomiting, abdominal pain, vision changes, dizziness and weakness. Denies HI. Related Data Home Medications ?Medication ?Instructions ?Recorded ?Confirmed methadone 10 mg/mL oral 130 mg PO DAILY 07/08/23 04/09/24 concentrate (Methadose) quetiapine 50 mg tablet 50 mg PO TID PRN Anxiety 05/19/24 05/19/24 Previous Rx's ?Medication ?Instructions ?Recorded albuterol sulfate 90 mcg/actuation 2 puff inhalation Q4H PRN 04/18/24 aerosol inhaler (Ventolin HFA) Shortness Of Breath #0 grams baclofen 20 mg tablet 20 mg PO BID #0 tabs 04/18/24 buspirone 10 mg tablet 10 mg PO TID #0 tabs 04/18/24 fluoxetine 10 mg capsule 30 mg (3 x 10 mg) PO DAILY #0 caps 04/18/24 gabapentin 400 mg capsule 400 mg PO TID #0 caps 04/18/24 lithium carbonate 450 mg 450 mg PO BID #0 tabs 04/18/24 tablet,extended release nicotine (polacrilex) 2 mg gum 4 mg buccal Q2H PRN Nicotine 04/18/24 Cravings #0 ea nicotine 21 mg/24 hr daily 21 mg transdermal DAILY #0 ea 04/18/24 transdermal patch quetiapine 50 mg tablet 150 mg (3 x 50 mg) PO BID #0 tabs 04/18/24 Allergies Allergy/AdvReac Type Severity Reaction Status Date / Time Penicillins [PENICILLINS] Allergy Severe ANAPHYLAXIS Verified 05/19/24 08:37 soap [SOAP] Allergy Intermediate ITCHING Verified 05/19/24 08:37 aspirin [ASA] Allergy Unknown ANAPHYLAXIS Verified 05/19/24 08:37 cat dander [cats] Allergy Unknown moderately Verified 05/19/24 08:37 severe latex [LATEX] Allergy Unknown ANAPHYLAXIS Verified 05/19/24 08:37 tramadol [TRAMADOL] Allergy Unknown HIVES, Rash Verified 05/19/24 08:37 acetaminophen [From Tylenol] Allergy Hives Verified 05/19/24 08:37 squid Allergy Unknown Verified 05/19/24 08:37 trazodone AdvReac Severe restless Verified 05/19/24 08:37 legs Review of Systems 2 Review of Systems: Yes all other systems are reviewed and are negative PMFSH Past Medical History Attestation statement: The following information was validated with the patient. Source: old records reviewed and nursing notes reviewed Medical History Borderline personality disorder Polysubstance use disorder Abscess of left arm Left arm cellulitis Substance abuse Social History Social History Household Members: None Housing: Homeless Do you presently have visiting nurse or other home services: No Alcohol intake: current Alcohol intake frequency: a few times a month Alcohol type: wine Patient Tobacco Use Status: Current everyday Tobacco user Tobacco use type: Cigarette Cigarette Packs Per Day: 0.5 Cigarettes Per Day: 15 Smoked in Last 30 Days: Yes e-Cigarette/Vaping Use: Never Used Second Hand Smoke Exposure: No Use of substances other than those prescribed or required for medical reasons: Yes Substance Use Type: Heroin, IV Drugs and Opiates Substance Use Frequency: Chronic Longstanding Last Used Substance: Days (ago) Any prior treatment program specific to substance use: No Advance Directives: No Advance Directives Information Provided: No Patient : No service: No Sexual orientation: Straight/Heterosexual Physical Exam 2 Vital Signs: Vital Signs: Last Vital Signs Temp 98.8 F 05/19/24 08:36 Pulse 72 05/19/24 08:36 Resp 16 05/19/24 08:40 BP 102/64 05/19/24 08:36 Pulse Ox 95 05/19/24 08:36 O2 Del Method Room Air 05/19/24 08:36 BMI result Body Mass Index 30.0 vss Appearance: Alert.? Oriented X3.? No acute distress.? Head: Normocephalic, atraumatic, no step-offs or deformities Eyes: Pupils equal, round and reactive to light.? CVS: Normal heart rate and rhythm.? Pulses normal.? Respiratory: No respiratory distress.? Breath sounds normal.? Abdomen: Soft and nontender.? Skin: Skin warm and dry.? Normal skin color.? Normal skin turgor.?Injection site L medial aspect of elbow. Healed scarring present. No erythema, warmth. Mild TTP Extremities: No lower extremity edema.? No calf ttp. 5/5 strength to bilateral upper and lower extremities Neuro: Oriented X 3.? No motor deficit.? No sensory deficit. CN 2-12 intact. Finger to nose intact Psych: mood depressed affect congruent. Does not appear distracted by internal stimuli Course Reevaluation(s) Reevaluation #1: CBC no acute findings. Chemistry unremarkable. UA likely contaminated 1+ bacteria with moderate amount of epithelial cells however I do not suspect acute UTI no UTI symptoms. Urine negative. Urine toxicology positive for methadone, fentanyl, cocaine. Negative salicylates, acetaminophen low lithium likely not taking her home meds. Ethanol negative. At this time patient to be placed into observation to allow more time to be evaluated by behavioral health team. At time observation started patient common cooperative no acute distress will continue to monitor Time: 10:29 Medications Administered Discontinued Medications Generic Name Dose Route Start Last Admin Trade Name Freq PRN Reason Stop Dose Admin Lorazepam 2 mg 05/19/24 09:36 05/19/24 09:41 Lorazepam 1 Mg Tablet PO 05/19/24 09:37 2 mg ONCE ONE Administration Medical Decision Making Medical Decision Making [facility] Narrative: 33-year-old female presents with suicidal ideation with plan to overdose on home meds. History of overdoses in the past. Physical exam benign Pain history and physical exam concerning for anxiety with depression and suicidal thoughts. Also concern for borderline personality disorder versus bipolar. Unlikely metabolic derangements. Plan medical clearance evaluation by care Differential Diagnosis Differential Diagnoses: The differential diagnosis associated with the presentation includes (Pain history and physical exam concerning for anxiety with depression and suicidal thoughts. Also concern for borderline personality disorder versus bipolar. Unlikely metabolic derangements.) Admission/Observation Consideration of admission/observation: Escalation of care including admission/observation considered (possible ) Lab Data [facility] Lab Attestation statement: I reviewed the patient's lab results. 05/19/24 09:18 05/19/24 09:18 Labs: Lab Results 05/19/24 05/19/24 Range/Units 08:57 09:18 WBC 8.9 (4.8-10.8) X10*3/uL RBC 4.78 (4.20-5.50) X10*6/uL Hgb 13.7 (12.0-16.0) g/dl Hct 39.9 (37.0-47.0) % MCV 83.5 (80.0-98.0) fL MCH 28.7 (27.0-33.0) pg MCHC 34.3 (31.0-35.0) g/dl RDW 12.9 (11.0-16.0) % Plt Count 355 (160-400) X10*3/uL MPV 9.0 L (9.4-12.3) fL Immature Gran % (Auto) 0.1 (0.0-0.4) % Neut % (Auto) 76.5 H (45-73) % Lymph % (Auto) 17.3 L (20-40) % [place] % (Auto) 5.8 (2-11) % Eos % (Auto) 0.1 (0-4) % Baso % (Auto) 0.2 (0-2) % Lymph # (Auto) 1.5 (1.2-4.9) X10*3/uL [place] # (Auto) 0.5 (0.1-1.2) X10*3/uL Eos # (Auto) 0.0 (0.0-0.4) X10*3/uL Baso # (Auto) 0.0 (0.0-0.2) X10*3/uL Abs Immat Gran (auto) 0.01 (0.00-0.03) X10*3/uL Absolute Neuts (auto) 6.8 (2.0-8.3) x10*3/uL Absolute Nucleated RBC 0.000 (0.0-0.012) X10*3/uL Nucleated RBC % (auto) 0.0 (0.0-0.2) /100WBC Sodium 139 (135-145) mmol/L Potassium 4.1 (3.3-5.1) mmol/L Chloride 104 (96-108) mmol/L Carbon Dioxide 27 (22-29) mmol/L Anion Gap 12 (12-20) BUN 18 H (9-16) mg/dL Creatinine 0.77 (0.5-1.4) mg/dL Estim Creat Clear Calc 108.6 Estimated GFR > 60 Random Glucose 92 (60-115) mg/dL Calcium 10.0 (8.4-10.2) mg/dL Total Bilirubin 0.6 (0.0-1.0) mg/dL AST 24 (5-31) U/L ALT 16 (0-31) U/L Alkaline Phosphatase 106 (39-117) U/L Total Protein 8.2 H (6.5-8.0) g/dL Albumin 4.4 (3.5-5.0) g/dL Urine Color Yellow Urine Appearance Cloudy Urine pH 6.5 (5.0-9.0) Ur Specific [place] >= 1.030 H (1.005-1.025) Urine Protein Trace (Neg-Trace) mg/dL Urine Glucose (UA) Negative (Negative) mg/dL Urine Ketones Negative (Negative) mg/dL Urine Blood Negative (Negative) Urine Nitrite Negative (Negative) Ur Leukocyte Esterase Trace H (Negative) Urine RBC 0-2 (0-2) /HPF Urine WBC 6-10 (0-5) /HPF Ur Squamous Epith Cells 11-20 (0-2) /HPF Urine Bacteria 1+ (None Seen) Hyaline Casts 0-2 (0-2) /LPF Urine Test NEGATIVE (NEGATIVE) Salicylates < 5.0 L (15-30) mg/dL Urine Opiates Screen Not Detected (Not Detect) Ur Buprenorphine Scrn Not Detected (Not Detect) ng/mL Ur Oxycodone Screen Not Detected (Not Detect) ng/mL Urine Methadone Screen Positive H (Not Detect) ng/mL Urine Fentanyl Screen POSITIVE H (Not Detect) Acetaminophen < 3 (<30) mcg/mL Ur Barbiturates Screen Not Detected (Not Detect) Ur Phencyclidine Scrn Not Detected (Not Detect) Ur Amphetamines Screen Not Detected (Not Detect) U Benzodiazepines Scrn Not Detected (Not Detect) [place] < 0.10 L (0.60-1.20) mmol/L Urine Cocaine Screen POSITIVE H (Not Detect) U Marijuana (THC) Screen Not Detected (Not Detect) Ethyl Alcohol < 10 mg/dL External Record Review External record reviewed: Inpatient record, Office record, Outpatient record, Prior outpatient labs, Prior outpatient radiology, Primary care record and Outside ED record Chronic Conditions Patient?s care impacted by: Other (IVDA, polysubstance, BPD, depression ) Critical Care Time Critical Care Time Critical Care Time: Yes Total Critical Care Time: 35 Attestation: I attest to this time spent taking care of the patient, obtaining history, physical, reviewing labs, imaging, treatment of patients condition +/- specialist/hospitalist consult Discharge Plan Discharge Clinical Impression: Depression, Alcohol withdrawal Patient Disposition: Still a Patient Prescriptions: No Action methadone [Methadose] 10 mg/mL concentrate 130 mg PO DAILY Rx Instructions: Partial Fill upon patient request. nicotine (polacrilex) 2 mg Gum 4 mg buccal Q2H PRN (Reason: Nicotine Cravings) Qty: 0 0RF gabapentin 400 mg Capsule 400 mg PO TID Qty: 0 0RF lithium carbonate 450 mg Tablet Extended Release 450 mg PO BID Qty: 0 0RF baclofen 20 mg Tablet 20 mg PO BID Qty: 0 0RF buspirone 10 mg Tablet 10 mg PO TID Qty: 0 0RF nicotine 21 mg/24 hr Patch 24 Hour 21 mg transdermal DAILY Qty: 0 0RF fluoxetine 10 mg Capsule 30 mg PO DAILY Qty: 0 0RF albuterol sulfate [Ventolin HFA] 90 mcg/actuation Hfa Aerosol Inhaler 2 puff inhalation Q4H PRN (Reason: Shortness Of Breath) Qty: 0 0RF quetiapine 50 mg Tablet 150 mg PO BID Qty: 0 0RF quetiapine 50 mg tablet 50 mg PO TID PRN (Reason: Anxiety) Interventions: [place]-Suicide Risk Severity Scale Last Done: 05/19/24 08:40 Print Language: Albanian
[2024-05-19 09:05] LABS: Appearance Urine Cloudy; Color Urine Yellow; Glucose Urine UA Negative (Negative); Leukocyte Esterase Urine Trace (Negative); Nitrite Urine Negative (Negative); PH 6.5 (5.0-9.0); Specific Gravity - Urine >= 1.030 (1.005-1.025); UMIC TRIGGER UACC YES; Urine Blood Negative (Negative); Urine Ketones Negative (Negative); Urine Protein Trace mg/dL (Neg-Trace)
[2024-05-19 09:07] LABS: UPreg QC Valid YES; Urine Pregnancy NEGATIVE (NEGATIVE)
[2024-05-19 09:18] LABS: Amphetamine Screen Urine Not Detected (Not Detect); Barbiturates, Urine Not Detected (Not Detect); Benzodiazepines Screen Urine Not Detected (Not Detect); Buprenorphine Scr Not Detected (Not Detect); Cannabinoid Screen Urine Not Detected (Not Detect); Cocaine Screen Urine POSITIVE (Not Detect); Fentanyl, urine POSITIVE (Not Detect); Methadone Screen, Urine Positive (Not Detect); Opiate Screen Urine Not Detected (Not Detect); Oxycodone Screen Urine Not Detected (Not Detect); Phencyclidine Screen Urine Not Detected (Not Detect)
[2024-05-19 09:19] LABS: Bacteria Urine 1+ (None Seen); Hyaline Casts Urine 0-2 /LPF (0-2); RBC Urine 0-2 /HPF (0-2); UACC Culture Trigger YES
[2024-05-19 09:27] LABS: MANUAL DIFF FLAG NO
[2024-05-19 09:28] LABS: Basophils Percent Auto 0.2 % (0-2); Eosinophils Percent Auto 0.1 % (0-4); Hematocrit 39.9 % (37.0-47.0); Hemoglobin 13.7 g/dl (12.0-16.0); Imm Gran Abs Auto 0.01 X10*3/uL (0.00-0.03); Imm Gran Pct Auto 0.1 % (0.0-0.4); Lymphocytes Absolute Auto 1.5 X10*3/uL (1.2-4.9); Lymphocytes Percent Auto 17.3 % (20-40); Mean Corpuscular HGB Conc 34.3 g/dl (31.0-35.0); Mean Corpuscular Hemoglobin 28.7 pg (27.0-33.0); Mean Corpuscular Volume 83.5 fL (80.0-98.0); Monocytes Absolute Auto 0.5 X10*3/uL (0.1-1.2); Monocytes Percent Auto 5.8 % (2-11); Neutrophils Absolute Auto 6.8 x10*3/uL (2.0-8.3); Neutrophils Percent Auto 76.5 % (45-73); Platelet Count 355 X10*3/uL (160-400); Red Blood Count 4.78 X10*6/uL (4.20-5.50); Red Cell Distribution Width 12.9 % (11.0-16.0); White Blood Count 8.9 X10*3/uL (4.8-10.8)
[2024-05-19 09:40] LABS: Lithium < 0.10 mmol/L (0.60-1.20)
[2024-05-19] MEDS: LORazepam 1 MG TABLET 2 MG PO ×3 (09:41→20:39)
[2024-05-19 09:46] LABS: Acetaminophen LAB < 3 mcg/mL (<30); Salicylate < 5.0 mg/dL (15-30)
[2024-05-19 09:47] LABS: Alanine Aminotransferase 16 U/L (0-31); Albumin Level 4.4 g/dL (3.5-5.0); Alkaline Phosphatase 106 U/L (39-117); Anion Gap 12 (12-20); Aspartate Amino Transferase 24 U/L (5-31); Bilirubin Total 0.6 mg/dL (0.0-1.0); Blood Urea Nitrogen 18 mg/dL (9-16); Carbon Dioxide 27 mmol/L (22-29); Chloride 104 mmol/L (96-108); Creatinine Clr Calc Pharmacy 108.6; Estimated Glomerular Filt Rate > 60; Ethanol < 10 mg/dL; Glucose Random 92 mg/dL (60-115); Potassium 4.1 mmol/L (3.3-5.1); Sodium 139 mmol/L (135-145); Total Protein 8.2 g/dL (6.5-8.0)
--- NOTE | 2024-05-19 10:36 | PC.NURSE ---
Patient reports she has been drinking heavily the past few days, tremors noted upon assessment. CIWA score of 13, PA [place] aware. Pt medicated with Ativan per OCT. Pt is noted to be falling asleep at this time, respirations even and unlabored. Methadone verified by last dose letter, all medications verified via blister packs that pt came with. Pt is appears to be in no apparent distress at this time
--- NOTE | 2024-05-19 10:47 | HE.PHANOTE ---
METHADONE CONFIRMATION FORM PATIENTS LAST DOSE OF 130 [facility] LAST DOSE 05/18 130MG
--- NOTE | 2024-05-19 11:17 | PC.NURSE ---
All home medications with pharmacy
--- NOTE | 2024-05-19 11:34 | PC.NURSE ---
Pt appears to be sleeping, respirations even and unlabored, no apparent distress noted at this time. PA aware that patient has not taken her medications or methadone today
[2024-05-19] MEDS: busPIRone HCl 10 MG TABLET PO ×2 (14:32→20:38)
[2024-05-19] MEDS: Gabapentin 400 MG CAPSULE PO ×2 (14:32→20:38)
[2024-05-19 15:06] VITALS: BP 141/66; PULSE 72; RESP 16; TEMP 37; O2SAT 94
[2024-05-19] MEDS: methADONE HCl 20 MG/2 ML ORAL.CONC 130 MG PO (15:12)
[2024-05-19 15:48] VITALS: RESP 16
--- NOTE | 2024-05-19 18:45 | PC.NURSE ---
Addendum entered by Izabela Garrison RN 05/19/24 18:50: She also denies HI/AVH. Silke reports she was staying at a co-ed program in [facility] where everyone drank homemade hooch . She reports drinking with peers about a month ago at the program and had a seizure so staff called an ambulance which she refused. she reports staff at the program was not alarmed and just gave me my meds and acted like nothing happened . The girls were so mean so I left . Pt reports she was provided an Uber to [place] and relapsed w/ a friend. i felt like I just wanted to , like I f*cked up and I'm a failure, but its weird I feel safe now so that good . Pt is receiving 130mg of methadone (verified) and has a CIWA Q4. She reports current anxiety an depression but was unable to rate. She is currently resting in bed. Original Note: Lauren Edouard was admitted from [facility] ED via wheelchair for SI w/ plan to OD on medications. She has an accepted CV and was placed on 15 minute checks for safety. Skin check unremarkable except for small bruise on left forearm and several open wounds on face. Pt reports she has very sensitive skin and has belem & belem soap from the ED in her belongings. Pt was pleasant, calm and cooperative during assessment and denies current si
[2024-05-19 20:00] VITALS: BP 116/86; PULSE 83; TEMP 36.6; O2SAT 94
[2024-05-19] MEDS: QUEtiapine Fumarate 50 MG TABLET 150 MG PO (20:38)
[2024-05-19] MEDS: Flu Vacc TS2024-25(6mos up)/PF 0.5 ML SYRINGE IM (20:41)
[2024-05-19] MEDS: Baclofen 20 MG TABLET PO (23:34)
[2024-05-20] VITALS: BP 116/72; PULSE 68; TEMP 36.7
[2024-05-20 04:50] VITALS: BP 110/65; PULSE 73; TEMP 36.6
[2024-05-20] MEDS: LORazepam 1 MG TABLET 2 MG PO (05:05)
[2024-05-20 08:00] VITALS: BP 112/61; PULSE 112; RESP 16; TEMP 36.8; O2SAT 95
[2024-05-20] MEDS: methADONE HCl 20 MG/2 ML ORAL.CONC 130 MG PO (08:35)
[2024-05-20] MEDS: Baclofen 20 MG TABLET PO ×2 (08:36→19:53)
[2024-05-20] MEDS: FLUoxetine HCl 10 MG CAPSULE 30 MG PO (08:36)
[2024-05-20] MEDS: Gabapentin 400 MG CAPSULE PO ×3 (08:36→19:53)
[2024-05-20] MEDS: busPIRone HCl 10 MG TABLET PO ×3 (08:36→19:53)
[2024-05-20] MEDS: QUEtiapine Fumarate 50 MG TABLET 150 MG PO ×2 (08:36→19:52)
[2024-05-20 08:42] LABS: Estimated Average Glucose 91 mg/dL; Hemoglobin A1C 96.9964 umol/L; Hemoglobin A1c % 4.8 % (<6.0); Total Hemoglobin (HGBA1C) 3408.4386 umol/L
[2024-05-20 08:50] LABS: Alanine Aminotransferase 15 U/L (0-31); Albumin Level 4.1 g/dL (3.5-5.0); Alkaline Phosphatase 93 U/L (39-117); Anion Gap 12 (12-20); Aspartate Amino Transferase 21 U/L (5-31); Bilirubin Direct 0.1 mg/dL (0.0-0.5); Bilirubin Total 0.4 mg/dL (0.0-1.0); Blood Urea Nitrogen 21 mg/dL (9-16); Calcium 9.7 mg/dL (8.4-10.2); Carbon Dioxide 30 mmol/L (22-29); Chloride 104 mmol/L (96-108); Cholesterol 243 mg/dL (<200); Estimated Glomerular Filt Rate > 60; Glucose Fasting 92 mg/dL (60-99); HDL Cholesterol 44 mg/dL (>40); LDL Cholesterol Calculated 170 mg/dL (<100); Potassium 3.6 mmol/L (3.3-5.1); Sodium 142 mmol/L (135-145); Total Protein 7.5 g/dL (6.5-8.0); Triglycerides 145 mg/dL (<150)
[2024-05-20 09:06] LABS: Thyroid Stimulating Hormone 4.63 uIU/mL (0.32-4.0)
[2024-05-20 09:12] LABS: Vitamin B12 381 pg/mL (200-900)
[2024-05-20] MEDS: LORazepam 1 MG TABLET PO ×3 (09:59→20:06)
[2024-05-20] MEDS: Nicotine Polacrilex 2 MG GUM 4 MG BUCCAL ×2 (10:06→22:57)
[2024-05-20] MEDS: Acetaminophen 325 MG TABLET 650 MG PO ×3 (10:06→22:55)
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
[2024-05-20] MEDS: QUEtiapine Fumarate 50 MG TABLET PO (16:44)
[2024-05-20 20:00] VITALS: BP 105/57; PULSE 87; RESP 18; TEMP 36.6; O2SAT 94
[2024-05-20] MEDS: hydrOXYzine HCL 10 MG TABLET PO (22:56)
--- NOTE | 2024-05-20 23:40 | PC.NURSE ---
Patient complained of withdrawal symptoms at approximately 2250. This proposal lead writer accomplished a CIWA at that time in spite of the fact that it was due at 0000. Patient scored a 12 at that time, primarly due to high anxiety and a headache. Patient requested withdrawal medication. This proposal lead writer acquired VS; patient's BP was 90/611, heart rate 98, and respiratory rate of 12. The patient had a 1 mg ativan at 20:06, and given her low BP and respiratory rate at the time of CIWA scoring, this proposal lead writer did not administer the available 1 mg of ativan that remained available (per shift.) Since the patient was experiencing primarily a headache and anxiety, this proposal lead writer administered PRN Tylenol and Hydroxyzine instead, to address those complaints.
[2024-05-21] MEDS: methADONE HCl 20 MG/2 ML ORAL.CONC 130 MG PO (07:47)
[2024-05-21 08:23] VITALS: BP 104/68; PULSE 100; RESP 16; TEMP 36.5; O2SAT 92
[2024-05-21] MEDS: Baclofen 20 MG TABLET PO ×2 (08:56→20:16)
[2024-05-21] MEDS: FLUoxetine HCl 10 MG CAPSULE 30 MG PO (08:56)
[2024-05-21] MEDS: Gabapentin 400 MG CAPSULE PO ×3 (08:56→20:16)
[2024-05-21] MEDS: Lithium Carbonate ER 450 MG TABLET.ER PO (08:56)
[2024-05-21] MEDS: busPIRone HCl 10 MG TABLET PO ×3 (08:56→20:17)
[2024-05-21] MEDS: QUEtiapine Fumarate 50 MG TABLET 150 MG PO ×2 (08:56→20:16)
[2024-05-21] MEDS: LORazepam 1 MG TABLET PO ×2 (08:56→20:16)
--- NOTE | 2024-05-21 09:50 | HO.PSYCHPN ---
Subjective Subjective Date of Service: 05/21/24 Reason For Visit: SI Interim History: Patient seen. More alert today. Repors ongoing anxiety. Says she was up and down last night because of nightmares. She remains focused on withdrawals in spite of lack of subjective symptoms and appearing sedated and nodding at times. Will continue to monitor. Refusing Li. Review of Systems Review of Systems Yes all other systems are reviewed and are negative Mental Status Exam Mental Status Exam Narrative: General appearance: hospital garb. Poor hygiene.? Eye contact: nodding off. Poor/brief. Intermittent.. Musculoskeletal: Normal muscle strength/tone, Normal gait and station, No abnormal involuntary movements like tremors, EPS or dyskinesia. Psychomotor retardation. Normal posture.??? Manner/behavior: limited by mental status Speech:? low volume. one word answers. Language: No receptive or expressive language impairment? Mood: depressed Affect: blunted Thought process/associations: Linear with no flight of ideas or loose associations.?? Thought content:?No delusions or paranoia.?? Hallucinations: No auditory, visual or other hallucinations Suicidality/self-destructive behavior: +SI. No intent.? ? Homicidally/violence: none.? Reliability: poor.? ? Judgment: poor.? ? Insight: fair Cognition: Alert and oriented to time, place and person. Attention, concentration and fund of knowledge are normal.? Impulse control and emotional regulation: limited. Intelligence estimate: average.? Diagnostics Vital Signs (24Hr): Vital Signs - 24 hr 05/20/24 20:00 Temperature 97.8 F Pulse Rate 87 Respiratory Rate 18 Blood Pressure 105/57 L Pulse Oximetry 94 Oxygen Delivery Method Room Air BMI result Body Mass Index 30.0 Labs 05/19/24 09:18 05/20/24 08:09 Labs: Laboratory Results - last 48 hr 05/20/24 08:09 Sodium 142 Potassium 3.6 Chloride 104 Carbon Dioxide 30 H Anion Gap 12 BUN 21 H Creatinine 0.82 Estim Creat Clear Calc 102.0 Estimated GFR > 60 Fasting Glucose 92 Estimat Average Glucose 91 Hemoglobin A1c % 4.8 Calcium 9.7 Magnesium 2.0 Total Bilirubin 0.4 Direct Bilirubin 0.1 AST 21 ALT 15 Alkaline Phosphatase 93 Total Protein 7.5 Albumin 4.1 Triglycerides 145 Cholesterol 243 H LDL Cholesterol, Calc 170 H HDL Cholesterol 44 Vitamin B12 381 TSH 4.63 H Medications Medications Current Medications Acetaminophen (Acetaminophen 325 Mg Tablet) 650 mg PO Q6H PRN PRN Reason: Pain, Mild (Pain Scale 1-3) Last Admin: 05/20/24 22:55 Dose: 650 mg Al Hydroxide/Mg Hydroxide (Magnesium Hydrox/Alum Hydrox 30 Ml Oral.Susp) 30 ml PO Q6H PRN PRN Reason: Heartburn/Nausea Albuterol Sulfate (Albuterol Sulfate 90 Mcg 8 Gm Inhaler) 2 puff INHALE Q4H PRN PRN Reason: Shortness Of Breath Baclofen (Baclofen 20 Mg Tablet) 20 mg PO BID [facility] [place] Last Admin: 05/21/24 08:56 Dose: 20 mg Buspirone HCl (Buspirone Hcl 10 Mg Tablet) 10 mg PO TID [facility] [place] Last Admin: 05/21/24 08:56 Dose: 10 mg Fluoxetine HCl (Fluoxetine Hcl 10 Mg Capsule) 30 mg PO DAILY [facility] [place] Last Admin: 05/21/24 08:56 Dose: 30 mg Gabapentin (Gabapentin 400 Mg Capsule) 400 mg PO TID [facility] [place] Last Admin: 05/21/24 08:56 Dose: 400 mg Hydroxyzine HCl (Hydroxyzine Hcl 10 Mg Tablet) 10 mg PO Q6H PRN PRN Reason: Anxiety Last Admin: 05/20/24 22:56 Dose: 10 mg [place] Carbonate ([place] Carbonate Er 450 Mg Tablet.Er) 450 mg PO BID [facility] [place] Last Admin: 05/21/24 08:56 Dose: 450 mg Lorazepam (Lorazepam 1 Mg Tablet) 1 mg PO QSHIFT PRN PRN Reason: Alcohol Withdrawal Magnesium Hydroxide (Milk Of Magnesia 30 Ml Oral.Susp) 30 ml PO DAILY PRN PRN Reason: Constipation Methadone HCl (Methadone Hcl 20 Mg/2 Ml Oral.Conc) 130 mg PO DAILY [facility] [place] Last Admin: 05/21/24 07:47 Dose: 130 mg Nicotine (Nicotine 21 Mg Patch.Td24) 21 mg TRANSDERMA DAILY [facility] [place] Last Admin: 05/21/24 08:57 Dose: Not Given Nicotine (Nicotine 14 Mg Patch.Td24) 14 mg TRANSDERMA DAILY [facility] [place] Last Admin: 05/20/24 08:43 Dose: Not Given Nicotine Polacrilex (Nicotine Polacrilex 2 Mg Gum) 4 mg BUCCAL Q2H PRN PRN Reason: Nicotine Cravings Last Admin: 05/20/24 22:57 Dose: 4 mg Nicotine Polacrilex (Nicotine Polacrilex 2 Mg Gum) 4 mg BUCCAL Q2H PRN PRN Reason: Nicotine Cravings Quetiapine Fumarate (Quetiapine Fumarate 50 Mg Tablet) 150 mg PO BID [facility] Last Admin: 05/21/24 08:56 Dose: 150 mg Quetiapine Fumarate (Quetiapine Fumarate 50 Mg Tablet) 50 mg PO TID PRN PRN Reason: Anxiety Last Admin: 05/20/24 16:44 Dose: 50 mg Allergies Allergies Allergy/AdvReac Type Severity Reaction Status Date / Time Penicillins [PENICILLINS] Allergy Severe ANAPHYLAXIS Verified 05/19/24 08:37 soap [SOAP] Allergy Intermediate ITCHING Verified 05/19/24 08:37 aspirin [ASA] Allergy Unknown ANAPHYLAXIS Verified 05/19/24 08:37 cat dander [cats] Allergy Unknown moderately Verified 05/19/24 08:37 severe latex [LATEX] Allergy Unknown ANAPHYLAXIS Verified 05/19/24 08:37 tramadol [TRAMADOL] Allergy Unknown HIVES, Rash Verified 05/19/24 08:37 squid Allergy Unknown Verified 05/19/24 08:37 trazodone AdvReac Severe restless Verified 05/19/24 08:37 legs Assessment & Plan Assessment & Plan (1) MDD (major depressive disorder), recurrent episode, moderate: Status: Acute Code(s): F33.1 - Major depressive disorder, recurrent, moderate (2) Borderline personality disorder: Status: Acute Code(s): F60.3 - Borderline personality disorder (3) Polysubstance use disorder: Status: Acute Code(s): F19.90 - Other psychoactive substance use, unspecified, uncomplicated Plan 33 yo female with depression, borderline personality disorder and polysubstance use disorder presents with increase depression and SI and relapse on opioids and cocaine and alcohol. - Admit to inpatient psychiatry - Continue assessment as patient becomes more alert and able to participate more fully. - CV - Collateral information from family and providers. - Milieu treatment and group therapy. - Medications: Lower Ativan frequency and hold for sedation. - Social work evaluation. - Disposition planning. 05/21: Continue current management and treatment plan. Reason for continued inpatient stay Substantial Risk for: harm to self and rapid decompensation Time Spent With Patient Time: Total time managing care of this patient today ____ minutes.
[2024-05-21] MEDS: hydrOXYzine HCL 10 MG TABLET PO ×3 (09:52→23:39)
[2024-05-21] MEDS: QUEtiapine Fumarate 50 MG TABLET PO ×3 (12:10→23:39)
--- NOTE | 2024-05-21 13:30 | PC.NURSE ---
pT HAS CIWA ORDERED QHIFT BUT IS SCORING 10 BASED ON FOCUSER. PROVIDER NOTIFIED, AWAITING ADDITIONAL ORDERS
--- NOTE | 2024-05-21 14:24 | PC.NURSE ---
pt is overly sedated and falling asleep at the phone with her head falling into her lap. She will quickly wake up and walk off before sitting in a new place and falling asleep again. Provider made aware via tiger text
[2024-05-21] MEDS: Nicotine 14 MG PATCH.TD24 TRANSDERMA (15:31)
[2024-05-21] MEDS: Nicotine Polacrilex 2 MG GUM 4 MG BUCCAL (15:31)
[2024-05-21 20:00] VITALS: BP 101/77; PULSE 95; TEMP 36.7; O2SAT 95
[2024-05-21] MEDS: Acetaminophen 325 MG TABLET 650 MG PO (20:16)
[2024-05-22] MEDS: QUEtiapine Fumarate 50 MG TABLET PO ×2 (05:20→19:05)
[2024-05-22] MEDS: methADONE HCl 20 MG/2 ML ORAL.CONC 130 MG PO (07:48)
[2024-05-22 08:00] VITALS: BP 121/76; PULSE 87; TEMP 36.6; O2SAT 97
[2024-05-22] MEDS: QUEtiapine Fumarate 50 MG TABLET 150 MG PO ×2 (08:23→20:22)
[2024-05-22] MEDS: FLUoxetine HCl 10 MG CAPSULE 30 MG PO (08:23)
[2024-05-22] MEDS: busPIRone HCl 10 MG TABLET PO ×3 (08:23→20:23)
[2024-05-22] MEDS: Lithium Carbonate ER 450 MG TABLET.ER PO (08:24)
[2024-05-22] MEDS: Gabapentin 400 MG CAPSULE PO ×3 (08:24→20:22)
[2024-05-22] MEDS: Baclofen 20 MG TABLET PO ×2 (08:24→20:23)
[2024-05-22] MEDS: LORazepam 1 MG TABLET PO ×3 (09:24→20:22)
--- NOTE | 2024-05-22 09:45 | HO.PSYCHPN ---
Subjective Subjective Date of Service: 05/22/24 Reason For Visit: SI Interim History: met with patient; discussed with team says she's chronically depressed but over past week became very depressed. Talked about missing her daughter, family and having little support. now on unit, pt reports she remains very depressed; some SI a little bit...but it's head in the right direction. While at program for past 3 weeks she shared that she was using, drinking alcohol daily at [facility] program. Reports continued w/drawal symptoms; still scoring, but less discussed medication regimen and tx for depression; pt says she liked Wellbutrin and does not know why it was ever stopped; she agrees to get back on Wellbutrin. She does not want [place], saying it was not helpful, made her feel bad and caused nightmares. She asked about Vivitrol for alcohol cravings but educated she's on Methadone. Mental Status Exam Mental Status Exam Narrative: Pt is alert and oriented; behavior is cooperative and calm; patient is not in distress; dressed in casual attire with unkempt hair but adequate hygiene; mood is described as depressed and affect congruent, downcast; eye contact appropriate; Speech is a little slowed; normal volume and prosody and not pressured; psychomotor retardation present; thought process is organized and goal directed; Thought content is on tx, psychosocial stressors; otherwise pertinent to relevant topics and without any delusional content, paranoid ideations or grandiosity; a little SI' no HI. Denies AVH and There is no evidence of perceptual disturbance. Patients insight and judgment impaired. Diagnostics Vital Signs (24Hr): Vital Signs - 24 hr 05/21/24 20:00 05/22/24 08:00 Temperature 98.0 F 97.8 F Pulse Rate 95 87 Blood Pressure 101/77 121/76 Pulse Oximetry 95 97 Oxygen Delivery Method Room Air Room Air BMI result Body Mass Index 30.0 Labs 05/19/24 09:18 05/20/24 08:09 Medications Medications Current Medications Acetaminophen (Acetaminophen 325 Mg Tablet) 650 mg PO Q6H PRN PRN Reason: Pain, Mild (Pain Scale 1-3) Last Admin: 05/21/24 20:16 Dose: 650 mg Al Hydroxide/Mg Hydroxide (Magnesium Hydrox/Alum Hydrox 30 Ml Oral.Susp) 30 ml PO Q6H PRN PRN Reason: Heartburn/Nausea Albuterol Sulfate (Albuterol Sulfate 90 Mcg 8 Gm Inhaler) 2 puff INHALE Q4H PRN PRN Reason: Shortness Of Breath Baclofen (Baclofen 20 Mg Tablet) 20 mg PO BID [facility] Last Admin: 05/22/24 08:24 Dose: 20 mg Buspirone HCl (Buspirone Hcl 10 Mg Tablet) 10 mg PO TID [facility] Last Admin: 05/22/24 08:23 Dose: 10 mg Fluoxetine HCl (Fluoxetine Hcl 10 Mg Capsule) 30 mg PO DAILY [facility] Last Admin: 05/22/24 08:23 Dose: 30 mg Gabapentin (Gabapentin 400 Mg Capsule) 400 mg PO TID [facility] Last Admin: 05/22/24 08:24 Dose: 400 mg Hydroxyzine HCl (Hydroxyzine Hcl 10 Mg Tablet) 10 mg PO Q6H PRN PRN Reason: Anxiety Last Admin: 05/21/24 23:39 Dose: 10 mg [place] Carbonate ([place] Carbonate Er 450 Mg Tablet.Er) 450 mg PO BID [facility] Last Admin: 05/22/24 08:24 Dose: 450 mg Lorazepam (Lorazepam 1 Mg Tablet) 1 mg PO QSHIFT PRN PRN Reason: Alcohol Withdrawal Last Admin: 05/22/24 09:24 Dose: 1 mg Magnesium Hydroxide (Milk Of Magnesia 30 Ml Oral.Susp) 30 ml PO DAILY PRN PRN Reason: Constipation Methadone HCl (Methadone Hcl 20 Mg/2 Ml Oral.Conc) 130 mg PO DAILY [facility] Last Admin: 05/22/24 07:48 Dose: 130 mg Nicotine (Nicotine 21 Mg Patch.Td24) 21 mg TRANSDERMA DAILY [facility] Last Admin: 05/21/24 08:57 Dose: Not Given Nicotine Polacrilex (Nicotine Polacrilex 2 Mg Gum) 4 mg BUCCAL Q2H PRN PRN Reason: Nicotine Cravings Last Admin: 05/21/24 15:31 Dose: 4 mg Nicotine Polacrilex (Nicotine Polacrilex 2 Mg Gum) 4 mg BUCCAL Q2H PRN PRN Reason: Nicotine Cravings Quetiapine Fumarate (Quetiapine Fumarate 50 Mg Tablet) 150 mg PO BID [facility] Last Admin: 05/22/24 08:23 Dose: 150 mg Quetiapine Fumarate (Quetiapine Fumarate 50 Mg Tablet) 50 mg PO TID PRN PRN Reason: Anxiety Last Admin: 05/22/24 05:20 Dose: 50 mg Allergies Allergies Allergy/AdvReac Type Severity Reaction Status Date / Time Penicillins [PENICILLINS] Allergy Severe ANAPHYLAXIS Verified 05/19/24 08:37 soap [SOAP] Allergy Intermediate ITCHING Verified 05/19/24 08:37 aspirin [ASA] Allergy Unknown ANAPHYLAXIS Verified 05/19/24 08:37 cat dander [cats] Allergy Unknown moderately Verified 05/19/24 08:37 severe latex [LATEX] Allergy Unknown ANAPHYLAXIS Verified 05/19/24 08:37 tramadol [TRAMADOL] Allergy Unknown HIVES, Rash Verified 05/19/24 08:37 squid Allergy Unknown Verified 05/19/24 08:37 trazodone AdvReac Severe restless Verified 05/19/24 08:37 legs Assessment & Plan Assessment & Plan (1) MDD (major depressive disorder), recurrent episode, moderate: Status: Acute Code(s): F33.1 - Major depressive disorder, recurrent, moderate (2) Borderline personality disorder: Status: Acute Code(s): F60.3 - Borderline personality disorder (3) Polysubstance use disorder: Status: Acute Code(s): F19.90 - Other psychoactive substance use, unspecified, uncomplicated Plan 33 yo female with depression, borderline personality disorder and polysubstance use disorder presents with increase depression and SI and relapse on opioids and cocaine and alcohol. Hospital course: 05/21: Continue current management and treatment plan. 05/22 says she's chronically depressed but over past week became very depressed. Talked about missing her daughter. now on unit, pt reports she remains very depressed; some SI a little bit...but it's head in the right direction. While at program for past 3 weeks she shared that she was using, drinking alcohol daily at [facility] program. Reports continued w/drawal symptoms; still scoring, but less discussed medication regimen and tx for depression; pt says she liked Wellbutrin and does not know why it was ever stopped; she agrees to get back on Wellbutrin. She does not want [place], saying it was not helpful, made her feel bad and caused nightmares. She asked about Vivitrol for alcohol cravings but educated she's on Methadone. -on Baclofen for cocaine cravings PLAN: - CV q15's Start Wellbutin XL 150mg daily (will titrate); effective in past DC lithium; pt does not want; has been refusing Continue CIWA - Collateral information from family and providers. - Milieu treatment and group therapy. - Medications: Lower Ativan frequency and hold for sedation. - Social work evaluation. - Disposition planning. Patient educated on: diagnosis, medication risk/benefits, substance abuse and therapeutic strategies Informed Consent: understands Reason for continued inpatient stay Substantial Risk for: rapid decompensation Time Spent With Patient Time: Total time managing care of this patient today ____ minutes.
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
[2024-05-22] MEDS: Nicotine 21 MG PATCH.TD24 TRANSDERMA (12:16)
[2024-05-22] MEDS: hydrOXYzine HCL 10 MG TABLET PO (12:16)
[2024-05-22] MEDS: buPROPion HCl XL 150 MG TAB.ER.24H PO (14:06)
[2024-05-22 17:10] VITALS: BP 131/96; O2SAT 97
[2024-05-22 20:00] VITALS: BP 116/60; PULSE 80; RESP 16; TEMP 36.8; O2SAT 97
--- NOTE | 2024-05-22 21:18 | PC.NURSE ---
RN SAW A NICOTINE VAPE PEN IN PATIENT'S BED WHILE ADMINISTERING MEDICATIONS. RN CONFISCATED VAPE PEN FROM PATIENT AND REMINDED HER THAT THIS IS NOT ALLOWED ON THE UNIT. PINK VAPE PEN WAS PUT INTO PATIENT'S BELONGINGS IN THE STORAGE CLOSET.
[2024-05-22] MEDS: Acetaminophen 325 MG TABLET 650 MG PO (22:15)
[2024-05-22] MEDS: LORazepam 1 MG TABLET 2 MG PO (22:15)
[2024-05-23] MEDS: LORazepam 1 MG TABLET 2 MG PO (06:22)
[2024-05-23] MEDS: methADONE HCl 20 MG/2 ML ORAL.CONC 130 MG PO (07:46)
[2024-05-23 08:00] VITALS: BP 111/73; PULSE 109; TEMP 37.8; O2SAT 97
[2024-05-23] MEDS: FLUoxetine HCl 10 MG CAPSULE 30 MG PO (08:31)
[2024-05-23] MEDS: buPROPion HCl XL 150 MG TAB.ER.24H PO (08:31)
[2024-05-23] MEDS: busPIRone HCl 10 MG TABLET PO ×3 (08:31→20:50)
[2024-05-23] MEDS: Baclofen 20 MG TABLET PO ×2 (08:31→20:50)
[2024-05-23] MEDS: Gabapentin 400 MG CAPSULE PO ×3 (08:31→20:50)
[2024-05-23] MEDS: QUEtiapine Fumarate 50 MG TABLET 150 MG PO ×2 (08:33→20:50)
[2024-05-23] MEDS: Acetaminophen 325 MG TABLET 650 MG PO (10:01)
[2024-05-23] MEDS: methocarbamoL 500 MG TABLET PO (10:08)
[2024-05-23] MEDS: LORazepam 1 MG TABLET PO ×3 (10:16→18:48)
[2024-05-23 11:38] LABS: Influenza A PCR NEGATIVE (Negative); Influenza B PCR NEGATIVE (Negative); Resp Syncy Virus RNA Qual PCR NEGATIVE (Negative); SARS COV2 PCR INHOUSE NEGATIVE (Negative)
--- NOTE | 2024-05-23 12:59 | P.PNPSI_ITS ---
Subjective Subjective Date of Service: 05/23/24 Reason For Visit: SI Interim History: met with pt; discussed with team Last night patient found with emmanuelle cosby pen. Patient reported that she is feeling irritable and not sure if it was a Wellbutrin or if it was just the milieu. She agreed to continue with Wellbutrin for now starting this morning, pt reports headache, light sensitivity, neck stiffness, sore throat, body aches and overall malaise. Temp only 100.1 and other vitals stable (mildly tachy). Neg Kernigs/brudzinski sign neg covid/flu/rsv neg strep no AMS -symptoms resolved later in the day -medical consult saw patient and ordered labs, concern for STDs, drug screen Mental Status Exam Mental Status Exam Narrative: Pt is alert and oriented; behavior is calm; dressed in casual attire with unkempt; mood is described as depressed...irritable and affect congruent, downcast; eye contact appropriate; Speech is a little slowed; normal volume and prosody and not pressured; psychomotor retardation present; thought process is organized and goal directed; Thought content is on tx, psychosocial stressors; otherwise pertinent to relevant topics and without any delusional content, paranoid ideations or grandiosity; no SI/HI. Denies AVH and There is no evidence of perceptual disturbance. Patients insight and judgment impaired. Diagnostics Vital Signs (24Hr): Vital Signs - 24 hr 05/22/24 17:10 05/22/24 20:00 05/23/24 08:00 Temperature 98.2 F 100.1 F Pulse Rate 80 109 H Respiratory Rate 16 Blood Pressure 131/96 H 116/60 111/73 Pulse Oximetry 97 97 97 Oxygen Delivery Method Room Air Room Air Room Air BMI result Body Mass Index 30.0 Labs 05/19/24 09:18 05/20/24 08:09 Labs: Laboratory Results - last 48 hr 05/23/24 10:15 Influenza Type A (PCR) NEGATIVE Influenza Type B (PCR) NEGATIVE RSV RNA Qual (PCR) NEGATIVE SARS-CoV-2 RNA (RT-PCR) NEGATIVE Medications Medications Current Medications Acetaminophen (Acetaminophen 325 Mg Tablet) 650 mg PO Q6H PRN PRN Reason: Pain, Mild (Pain Scale 1-3) Last Admin: 05/23/24 10:01 Dose: 650 mg Al Hydroxide/Mg Hydroxide (Magnesium Hydrox/Alum Hydrox 30 Ml Oral.Susp) 30 ml PO Q6H PRN PRN Reason: Heartburn/Nausea Albuterol Sulfate (Albuterol Sulfate 90 Mcg 8 Gm Inhaler) 2 puff INHALE Q4H PRN PRN Reason: Shortness Of Breath Baclofen (Baclofen 20 Mg Tablet) 20 mg PO BID [facility] Last Admin: 05/23/24 08:31 Dose: 20 mg Bupropion HCl (Bupropion Hcl Xl 150 Mg Tab.Er.24h) 150 mg PO DAILY [facility] Last Admin: 05/23/24 08:31 Dose: 150 mg Buspirone HCl (Buspirone Hcl 10 Mg Tablet) 10 mg PO TID [facility] Last Admin: 05/23/24 08:31 Dose: 10 mg Fluoxetine HCl (Fluoxetine Hcl 10 Mg Capsule) 30 mg PO DAILY [facility] Last Admin: 05/23/24 08:31 Dose: 30 mg Gabapentin (Gabapentin 400 Mg Capsule) 400 mg PO TID [facility] Last Admin: 05/23/24 08:31 Dose: 400 mg Hydrocortisone (Hydrocortisone 1 % Cream 28.35 Gm Tube) 1 appl TOPICAL DAILY [facility]; Protocol Stop: 05/25/24 23:50 Hydroxyzine HCl (Hydroxyzine Hcl 10 Mg Tablet) 10 mg PO Q6H PRN PRN Reason: Anxiety Last Admin: 05/22/24 12:16 Dose: 10 mg Lorazepam (Lorazepam 1 Mg Tablet) 1 mg PO Q2H PRN PRN Reason: CIWA 6-10 Last Admin: 05/23/24 10:16 Dose: 1 mg Lorazepam (Lorazepam 1 Mg Tablet) 2 mg PO Q2H PRN PRN Reason: CIWA 11 and above Last Admin: 05/23/24 06:22 Dose: 2 mg Magnesium Hydroxide (Milk Of Magnesia 30 Ml Oral.Susp) 30 ml PO DAILY PRN PRN Reason: Constipation Melatonin (Melatonin 3 Mg Tablet) 6 mg PO BEDTIME PRN PRN Reason: Insomnia Methadone HCl (Methadone Hcl 20 Mg/2 Ml Oral.Conc) 130 mg PO DAILY [facility] Last Admin: 05/23/24 07:46 Dose: 130 mg Methocarbamol (Methocarbamol 500 Mg Tablet) 500 mg PO TID PRN PRN Reason: for restless leg Last Admin: 05/23/24 10:08 Dose: 500 mg Nicotine (Nicotine 21 Mg Patch.Td24) 21 mg TRANSDERMA DAILY [facility] Last Admin: 05/22/24 12:16 Dose: 21 mg Nicotine Polacrilex (Nicotine Polacrilex 2 Mg Gum) 4 mg BUCCAL Q2H PRN PRN Reason: Nicotine Cravings Last Admin: 05/21/24 15:31 Dose: 4 mg Nicotine Polacrilex (Nicotine Polacrilex 2 Mg Gum) 4 mg BUCCAL Q2H PRN PRN Reason: Nicotine Cravings Quetiapine Fumarate (Quetiapine Fumarate 50 Mg Tablet) 150 mg PO BID [facility] Last Admin: 05/23/24 08:33 Dose: 150 mg Quetiapine Fumarate (Quetiapine Fumarate 50 Mg Tablet) 50 mg PO TID PRN PRN Reason: Anxiety Last Admin: 05/22/24 19:05 Dose: 50 mg Allergies Allergies Allergy/AdvReac Type Severity Reaction Status Date / Time Penicillins [PENICILLINS] Allergy Severe ANAPHYLAXIS Verified 05/19/24 08:37 soap [SOAP] Allergy Intermediate ITCHING Verified 05/19/24 08:37 aspirin [ASA] Allergy Unknown ANAPHYLAXIS Verified 05/19/24 08:37 cat dander [cats] Allergy Unknown moderately Verified 05/19/24 08:37 severe latex [LATEX] Allergy Unknown ANAPHYLAXIS Verified 05/19/24 08:37 tramadol [TRAMADOL] Allergy Unknown HIVES, Rash Verified 05/19/24 08:37 squid Allergy Unknown Verified 05/19/24 08:37 trazodone AdvReac Severe restless Verified 05/19/24 08:37 legs Assessment & Plan Assessment & Plan (1) MDD (major depressive disorder), recurrent episode, moderate: Status: Acute Code(s): F33.1 - Major depressive disorder, recurrent, moderate (2) Borderline personality disorder: Status: Acute Code(s): F60.3 - Borderline personality disorder (3) Polysubstance use disorder: Status: Acute Code(s): F19.90 - Other psychoactive substance use, unspecified, uncomplicated Plan 33 yo female with depression, borderline personality disorder and polysubstance use disorder presents with increase depression and SI and relapse on opioids and cocaine and alcohol. Hospital course: 05/21: Continue current management and treatment plan. 05/22 says she's chronically depressed but over past week became very depressed. Talked about missing her daughter. now on unit, pt reports she remains very depressed; some SI a little bit...but it's head in the right direction. While at program for past 3 weeks she shared that she was using, drinking alcohol daily at [facility] program. Reports continued w/drawal symptoms; still scoring, but less discussed medication regimen and tx for depression; pt says she liked Wellbutrin and does not know why it was ever stopped; she agrees to get back on Wellbutrin. She does not want [place], saying it was not helpful, made her feel bad and caused nightmares. She asked about Vivitrol for alcohol cravings but educated she's on Methadone. -on Baclofen for cocaine cravings 05/23 patient had contraband, vape pen which was found; concern that patient is not yet at a place where she is focused on treatment (given that she recently left [facility] for using during that program) patient feeling general malaise, complaining of neck pain, mild fever this morning focused exam conducted however patient recovered, vitals returned to WNL and pain resolved making serious illness, meningitis very low concern -patient irritable on the unit. - PLAN: - CV q15's Continue Wellbutin XL 150mg daily (will titrate); effective in past DC lithium; pt does not want; has been refusing Continue CIWA - Collateral information from family and providers. - Milieu treatment and group therapy. - Medications: Lower Ativan frequency and hold for sedation. - Social work evaluation. - Disposition planning. Patient educated on: diagnosis, medication risk/benefits and therapeutic strategies Informed Consent: understands and further education needed Reason for continued inpatient stay Substantial Risk for: rapid decompensation Time Spent With Patient Time: Total time managing care of this patient today ____ minutes.
[2024-05-23 13:15] LABS: IDNOW Serial# 08D9AD1C; Strep A Nucleic Acid Negative (Negative)
[2024-05-23] MEDS: hydrOXYzine HCL 10 MG TABLET PO (13:31)
[2024-05-23 14:31] VITALS: BP 107/59; PULSE 92; RESP 18; TEMP 36.7; O2SAT 94
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
[2024-05-23 17:37] LABS: Appearance Urine Turbid; Color Urine Yellow; Glucose Urine UA Negative (Negative); Leukocyte Esterase Urine Moderate (2+) (Negative); Nitrite Urine Negative (Negative); PH 5.5 (5.0-9.0); Specific Gravity - Urine >= 1.030 (1.005-1.025); UMIC TRIGGER UACC YES; Urine Blood Negative (Negative); Urine Ketones Trace mg/dL (Negative); Urine Protein Trace mg/dL (Neg-Trace)
[2024-05-23 17:45] LABS: Amphetamine Screen Urine Not Detected (Not Detect); Barbiturates, Urine Not Detected (Not Detect); Benzodiazepines Screen Urine Not Detected (Not Detect); Buprenorphine Scr Not Detected (Not Detect); Cannabinoid Screen Urine Not Detected (Not Detect); Cocaine Screen Urine Not Detected (Not Detect); Fentanyl, urine POSITIVE (Not Detect); Methadone Screen, Urine Positive (Not Detect); Opiate Screen Urine Not Detected (Not Detect); Oxycodone Screen Urine Not Detected (Not Detect); Phencyclidine Screen Urine Not Detected (Not Detect)
[2024-05-23 17:52] LABS: Bacteria Urine 4+ (None Seen); RBC Urine 0-2 /HPF (0-2); Squamous Epithelial Cell Urine >20 /HPF (0-2); UACC Culture Trigger YES; WBC Urine >50 /HPF (0-5)
--- NOTE | 2024-05-23 18:34 | PC.NURSE ---
Med consult was placed due to low-grade fever, light sensitivity & body aches. After consult PA asked TW if there was a possibility if the patient could possibly be using substances on the unit due to nodding off and level of sedation.
[2024-05-23 19:49] LABS: MANUAL DIFF FLAG NO
[2024-05-23 20:00] VITALS: BP 120/73; PULSE 104; RESP 16; TEMP 36.9; O2SAT 97
[2024-05-23 20:03] LABS: Anion Gap 14 (12-20); Blood Urea Nitrogen 11 mg/dL (9-16); Calcium 9.6 mg/dL (8.4-10.2); Carbon Dioxide 26 mmol/L (22-29); Chloride 108 mmol/L (96-108); Creatinine Clr Calc Pharmacy 113.1; Estimated Glomerular Filt Rate > 60; Glucose Random 118 mg/dL (60-115); Potassium 3.8 mmol/L (3.3-5.1); Sodium 144 mmol/L (135-145)
[2024-05-23 20:05] LABS: Basophils Percent Auto 0.3 % (0-2); Eosinophils Absolute Auto 0.2 X10*3/uL (0.0-0.4); Eosinophils Percent Auto 1.8 % (0-4); Hematocrit 37.6 % (37.0-47.0); Hemoglobin 12.6 g/dl (12.0-16.0); Imm Gran Abs Auto 0.02 X10*3/uL (0.00-0.03); Imm Gran Pct Auto 0.2 % (0.0-0.4); Lymphocytes Absolute Auto 2.3 X10*3/uL (1.2-4.9); Lymphocytes Percent Auto 26.7 % (20-40); Mean Corpuscular HGB Conc 33.5 g/dl (31.0-35.0); Mean Corpuscular Hemoglobin 28.3 pg (27.0-33.0); Mean Corpuscular Volume 84.3 fL (80.0-98.0); Mean Platelet Volume 9.8 fL (9.4-12.3); Monocytes Absolute Auto 0.4 X10*3/uL (0.1-1.2); Monocytes Percent Auto 4.5 % (2-11); Neutrophils Absolute Auto 5.8 x10*3/uL (2.0-8.3); Neutrophils Percent Auto 66.5 % (45-73); Platelet Count 260 X10*3/uL (160-400); Red Blood Count 4.46 X10*6/uL (4.20-5.50); Red Cell Distribution Width 12.9 % (11.0-16.0); White Blood Count 8.7 X10*3/uL (4.8-10.8)
[2024-05-23] MEDS: Melatonin 3 MG TABLET 6 MG PO (21:03)
[2024-05-24 03:18] LABS: CT PCR NOT DETECTED (Not Detect.); NG PCR NOT DETECTED (Not Detect.)
--- NOTE | 2024-05-24 04:47 | PC.NURSE ---
It was reported by staff that patient followed a staff member into the patients' belongings closet and grabbed a vape out of her belongings. She gave back the vape with minimal issues.
[2024-05-24] MEDS: methADONE HCl 20 MG/2 ML ORAL.CONC 130 MG PO (07:43)
[2024-05-24 08:00] VITALS: BP 97/59; PULSE 84; RESP 16; TEMP 36.5; O2SAT 92
[2024-05-24 08:20] LABS: HBS Num1 9.19 mIU/mL (0-7.99); HBc Num1 0.23 S/CO (0.00-0.79); HBsAGNum1 0.39 S/CO (0.00-0.99); HIV Num 1 1.73 S/CO (0.00-0.99); Hepatitis B Core Antibody Nonreactive (Nonreactive); Hepatitis B Surface Antigen Negative (Negative); ~HepC Num1 14.46 S/CO (0.00-0.79); ~Hepatitis C Antibody Reactive (Nonreactive)
[2024-05-24 08:29] LABS: Syphilis Screen Nonreactive (Nonreactive)
[2024-05-24] MEDS: FLUoxetine HCl 10 MG CAPSULE 30 MG PO (09:19)
[2024-05-24] MEDS: buPROPion HCl XL 150 MG TAB.ER.24H PO (09:20)
[2024-05-24] MEDS: busPIRone HCl 10 MG TABLET PO (09:20)
[2024-05-24] MEDS: Baclofen 20 MG TABLET PO (09:20)
[2024-05-24] MEDS: methocarbamoL 500 MG TABLET PO ×2 (09:20→13:40)
[2024-05-24] MEDS: QUEtiapine Fumarate 50 MG TABLET 150 MG PO (09:20)
[2024-05-24] MEDS: Nicotine Polacrilex 2 MG GUM 4 MG BUCCAL (09:20)
[2024-05-24] MEDS: Gabapentin 400 MG CAPSULE PO (09:21)
[2024-05-24 09:31] VITALS: BP 113/73; PULSE 88; RESP 18; TEMP 36.5; O2SAT 99
[2024-05-24] MEDS: LORazepam 1 MG TABLET PO (09:32)
--- NOTE | 2024-05-24 09:43 | P.EN_ITS ---
Event Note Date of Service: 05/24/24 Event Note: yesterday evening, pt got herself into the patient closet, grabbed and tried to abscond with her Vape pen; she initially refused to give it back but staff eventually convinced her to do so (Vape pen was found in her room the day before which she admitted was a cannabis pen). Discussed with team; as this is second time patient using/trying to use contraban, it's agreed that she is not currently ready to engage in treatment and it's agreed to administratively dis charge her. refused labs for Hep C Viral load Time Spent With Patient Time: Total time managing care of this patient today ____ minutes.
[2024-05-24 10:59] LABS: HBS Num2 0.28 mIU/mL (0-7.99); HBS Num3 0.37 mIU/mL (0-7.99); HIV AB/AG Nonreactive (Nonreactive); HIV Num 2 0.07 S/CO; HIV Num 3 0.07 S/CO; ~Hepatitis B Surface Antibody NONREACTIVE (Nonreactive)
[2024-05-24] MEDS: hydrOXYzine HCL 10 MG TABLET PO (11:51)
[2024-05-24] MEDS: Naloxone HCl Nasal TAKE HOME 4 MG SPRAY 8 MG NOSTRILALT (11:53)
[2024-05-24 12:09] LABS: Bacterial Vaginosis PCR NEGATIVE (Negative); Candida Group PCR NOT DETECTED (Not Detect); Candida glab krusei PCR NOT DETECTED (Not Detect); Trichomonas vaginalis PCR NOT DETECTED (Not Detect)
--- NOTE | 2024-05-24 12:29 | P.DS_ITS ---
DS: Providers Provider Date of Service: 05/24/24 Date of admission: 05/19/24 15:06 Date of discharge: 05/24/24 Primary care physician: Eemry Physician Attending physician on admission: Pineda Carson Consults: 05/19/24 18:04 Addiction Medicine Routine Consulting Provider: Addiction Covering Reason for consultation: methadone 05/19/24 18:30 Addiction Medicine Routine Consulting Provider: Addiction Covering Reason for consultation: ETOH & Methadone Attending physician on discharge: Rosales Zamora DS: Diagnosis Discharge Diagnosis (1) MDD (major depressive disorder), recurrent episode, moderate: Status: Acute (2) Borderline personality disorder: Status: Acute (3) Polysubstance use disorder: Status: Acute DS: Medications Discharge Medications Home Medications: Home Medications ?Medication ?Instructions ?Recorded ?Confirmed methadone 10 mg/mL oral 130 mg PO DAILY 07/08/23 05/19/24 concentrate (Methadose) Previous Rx's ?Medication ?Instructions ?Recorded albuterol sulfate 90 mcg/actuation 2 puff inhalation Q4H PRN 05/24/24 aerosol inhaler (Ventolin HFA) Shortness Of Breath 30 days #6.7 grams baclofen 20 mg tablet 20 mg PO BID 30 days #60 tabs 05/24/24 bupropion HCl 150 mg 24 hr tablet, 150 mg PO DAILY 30 days #30 tabs 05/24/24 extended release buspirone 10 mg tablet 10 mg PO TID 30 days #90 tabs 05/24/24 fluoxetine 10 mg capsule 30 mg (3 x 10 mg) PO DAILY 30 days 05/24/24 #90 caps gabapentin 400 mg capsule 400 mg PO TID 30 days #90 caps 05/24/24 hydroxyzine HCl 10 mg tablet 10 mg PO Q6H PRN Anxiety 30 days 05/24/24 #30 tabs lorazepam 1 mg tablet 1 mg PO DAILY 5 days #5 tabs 05/24/24 melatonin 3 mg tablet 6 mg (2 x 3 mg) PO BEDTIME PRN 05/24/24 Insomnia 30 days #60 tabs methocarbamol 500 mg tablet 500 mg PO TID PRN for restless leg 05/24/24 30 days #90 tabs nicotine (polacrilex) 2 mg gum 2 mg buccal Q2H PRN Nicotine 05/24/24 Cravings 30 days #100 ea nicotine 21 mg/24 hr daily 21 mg transdermal DAILY PRN 05/24/24 transdermal patch nicotine cravings 28 days #28 ea nitrofurantoin 100 mg PO BID 7 days #13 caps 05/24/24 monohydrate/macrocrystals 100 mg capsule (Macrobid) quetiapine 150 mg tablet 150 mg PO BID 30 days #60 tabs 05/24/24 quetiapine 50 mg tablet 50 mg PO TID PRN Anxiety 30 days 05/24/24 #90 tabs sennosides 8.6 mg-docusate sodium 1 tab PO BID PRN Constipation 30 05/24/24 50 mg tablet (Senna Plus) days #60 tabs Mental Status Exam Mental Status Exam Narrative: Pt is alert and oriented; behavior is calm; dressed in casual attire, showered and well groomed; mood is described as ok and affect congruent; eye contact appropriate; Speech is normal rate, volume and prosody and not pressured; no psychomotor retardation present; thought process is organized and goal directed; Thought content is on dismayed about discharge; otherwise pertinent to relevant topics and without any delusional content, paranoid ideations or grandiosity; no SI/HI. Denies AVH and There is no evidence of perceptual disturbance. Patients insight and judgment is impaired but adequate Data Data Completed and Pending Completed studies during hospitalization [Text1]: 05/19/24 05/19/24 05/20/24 08:57 09:18 08:09 WBC 8.9 RBC 4.78 Hgb 13.7 Hct 39.9 MCV 83.5 MCH 28.7 MCHC 34.3 RDW 12.9 Plt Count 355 MPV 9.0 L Immature Gran % (Auto) 0.1 Neut % (Auto) 76.5 H Lymph % (Auto) 17.3 L [place] % (Auto) 5.8 Eos % (Auto) 0.1 Baso % (Auto) 0.2 Lymph # (Auto) 1.5 [place] # (Auto) 0.5 Eos # (Auto) 0.0 Baso # (Auto) 0.0 Abs Immat Gran (auto) 0.01 Absolute Neuts (auto) 6.8 Absolute Nucleated RBC 0.000 Nucleated RBC % (auto) 0.0 Sodium 139 142 Potassium 4.1 3.6 Chloride 104 104 Carbon Dioxide 27 30 H Anion Gap 12 12 BUN 18 H 21 H Creatinine 0.77 0.82 Estim Creat Clear Calc 108.6 102.0 Estimated GFR > 60 > 60 Random Glucose 92 Fasting Glucose 92 Estimat Average Glucose 91 Hemoglobin A1c % 4.8 Calcium 10.0 9.7 Magnesium 2.0 Total Bilirubin 0.6 0.4 Direct Bilirubin 0.1 AST 24 21 ALT 16 15 Alkaline Phosphatase 106 93 Total Protein 8.2 H 7.5 Albumin 4.4 4.1 Triglycerides 145 Cholesterol 243 H LDL Cholesterol, Calc 170 H HDL Cholesterol 44 Vitamin B12 381 TSH 4.63 H Urine Color Yellow Urine Appearance Cloudy Urine pH 6.5 Ur Specific [place] >= 1.030 H Urine Protein Trace Urine Glucose (UA) Negative Urine Ketones Negative Urine Blood Negative Urine Nitrite Negative Ur Leukocyte Esterase Trace H Urine RBC 0-2 Urine WBC 6-10 Ur Squamous Epith Cells 11-20 Urine Bacteria 1+ Hyaline Casts 0-2 Urine Test NEGATIVE Salicylates < 5.0 L Urine Opiates Screen Not Detected Ur Buprenorphine Scrn Not Detected Ur Oxycodone Screen Not Detected Urine Methadone Screen Positive H Urine Fentanyl Screen POSITIVE H Urine Fentanyl Ur Norfentanyl Quant Acetaminophen < 3 Ur Barbiturates Screen Not Detected Ur Phencyclidine Scrn Not Detected Ur Amphetamines Screen Not Detected U Benzodiazepines Scrn Not Detected Angier < 0.10 L Urine Cocaine Screen POSITIVE H U Marijuana (THC) Screen Not Detected Ethyl Alcohol < 10 T.pallidum Ab (EIA) Chlam trachomat DNA PCR Hep Bs Antigen Hep Bs Antibody Hep B Core Total Ab Hepatitis C Ab (EIA) HIV 1&2 Ab/P24 Ag 4thGn Influenza Type A (PCR) Influenza Type B (PCR) N.gonorrhoeae DNA (PCR) RSV RNA Qual (PCR) SARS-CoV-2 RNA (RT-PCR) S. pyogenes GrpA MARS T. vaginalis (PCR) Bact Vaginosis (PCR) C. krusei/glabrata (PCR) [place] group (PCR) 05/23/24 05/23/24 05/23/24 10:15 12:45 15:41 WBC RBC Hgb Hct MCV MCH MCHC RDW Plt Count MPV Immature Gran % (Auto) Neut % (Auto) Lymph % (Auto) [place] % (Auto) Eos % (Auto) Baso % (Auto) Lymph # (Auto) [place] # (Auto) Eos # (Auto) Baso # (Auto) Abs Immat Gran (auto) Absolute Neuts (auto) Absolute Nucleated RBC Nucleated RBC % (auto) Sodium Potassium Chloride Carbon Dioxide Anion Gap BUN Creatinine Estim Creat Clear Calc Estimated GFR Random Glucose Fasting Glucose Estimat Average Glucose Hemoglobin A1c % Calcium Magnesium Total Bilirubin Direct Bilirubin AST ALT Alkaline Phosphatase Total Protein Albumin Triglycerides Cholesterol LDL Cholesterol, Calc HDL Cholesterol Vitamin B12 TSH Urine Color Urine Appearance Urine pH Ur Specific [place] Urine Protein Urine Glucose (UA) Urine Ketones Urine Blood Urine Nitrite Ur Leukocyte Esterase Urine RBC Urine WBC Ur Squamous Epith Cells Urine Bacteria Hyaline Casts Urine Test Salicylates Urine Opiates Screen Ur Buprenorphine Scrn Ur Oxycodone Screen Urine Methadone Screen Urine Fentanyl Screen Urine Fentanyl Ur Norfentanyl Quant Acetaminophen Ur Barbiturates Screen Ur Phencyclidine Scrn Ur Amphetamines Screen U Benzodiazepines Scrn [place] Urine Cocaine Screen U Marijuana (THC) Screen Ethyl Alcohol T.pallidum Ab (EIA) Nonreactive Chlam trachomat DNA PCR Hep Bs Antigen Negative Hep Bs Antibody NONREACTIVE Hep B Core Total Ab Nonreactive Hepatitis C Ab (EIA) Reactive H HIV 1&2 Ab/P24 Ag 4thGn Nonreactive Influenza Type A (PCR) NEGATIVE Influenza Type B (PCR) NEGATIVE N.gonorrhoeae DNA (PCR) RSV RNA Qual (PCR) NEGATIVE SARS-CoV-2 RNA (RT-PCR) NEGATIVE S. pyogenes GrpA MARS Negative T. vaginalis (PCR) Bact Vaginosis (PCR) C. krusei/glabrata (PCR) Dinorah group (PCR) 05/23/24 05/23/24 05/23/24 16:45 16:45 19:35 WBC 8.7 RBC 4.46 Hgb 12.6 Hct 37.6 MCV 84.3 MCH 28.3 MCHC 33.5 RDW 12.9 Plt Count 260 D MPV 9.8 Immature Gran % (Auto) 0.2 Neut % (Auto) 66.5 Lymph % (Auto) 26.7 [place] % (Auto) 4.5 Eos % (Auto) 1.8 Baso % (Auto) 0.3 Lymph # (Auto) 2.3 [place] # (Auto) 0.4 Eos # (Auto) 0.2 Baso # (Auto) 0.0 Abs Immat Gran (auto) 0.02 Absolute Neuts (auto) 5.8 Absolute Nucleated RBC 0.000 Nucleated RBC % (auto) 0.0 Sodium 144 Potassium 3.8 Chloride 108 Carbon Dioxide 26 Anion Gap 14 BUN 11 Creatinine 0.74 Estim Creat Clear Calc 113.1 Estimated GFR > 60 Random Glucose 118 H Fasting Glucose Estimat Average Glucose Hemoglobin A1c % Calcium 9.6 Magnesium Total Bilirubin Direct Bilirubin AST ALT Alkaline Phosphatase Total Protein Albumin Triglycerides Cholesterol LDL Cholesterol, Calc HDL Cholesterol Vitamin B12 TSH Urine Color Yellow Urine Appearance Turbid Urine pH 5.5 Ur Specific [place] >= 1.030 H Urine Protein Trace Urine Glucose (UA) Negative Urine Ketones Trace Urine Blood Negative Urine Nitrite Negative Ur Leukocyte Esterase Moderate (2+) H Urine RBC 0-2 Urine WBC >50 H Ur Squamous Epith Cells >20 Urine Bacteria 4+ Hyaline Casts 3-5 Urine Test Salicylates Urine Opiates Screen Not Detected Ur Buprenorphine Scrn Not Detected Ur Oxycodone Screen Not Detected Urine Methadone Screen Positive H Urine Fentanyl Screen POSITIVE H Pending Urine Fentanyl Pending Ur Norfentanyl Quant Pending Acetaminophen Ur Barbiturates Screen Not Detected Ur Phencyclidine Scrn Not Detected Ur Amphetamines Screen Not Detected U Benzodiazepines Scrn Not Detected [place] Urine Cocaine Screen Not Detected U Marijuana (THC) Screen Not Detected Ethyl Alcohol T.pallidum Ab (EIA) Chlam trachomat DNA PCR NOT DETECTED Hep Bs Antigen Hep Bs Antibody Hep B Core Total Ab Hepatitis C Ab (EIA) HIV 1&2 Ab/P24 Ag 4thGn Influenza Type A (PCR) Influenza Type B (PCR) N.gonorrhoeae DNA (PCR) NOT DETECTED RSV RNA Qual (PCR) SARS-CoV-2 RNA (RT-PCR) S. pyogenes GrpA MARS T. vaginalis (PCR) Bact Vaginosis (PCR) C. krusei/glabrata (PCR) [place] group (PCR) 05/24/24 11:04 WBC RBC Hgb Hct MCV MCH MCHC RDW Plt Count MPV Immature Gran % (Auto) Neut % (Auto) Lymph % (Auto) [place] % (Auto) Eos % (Auto) Baso % (Auto) Lymph # (Auto) [place] # (Auto) Eos # (Auto) Baso # (Auto) Abs Immat Gran (auto) Absolute Neuts (auto) Absolute Nucleated RBC Nucleated RBC % (auto) Sodium Potassium Chloride Carbon Dioxide Anion Gap BUN Creatinine Estim Creat Clear Calc Estimated GFR Random Glucose Fasting Glucose Estimat Average Glucose Hemoglobin A1c % Calcium Magnesium Total Bilirubin Direct Bilirubin AST ALT Alkaline Phosphatase Total Protein Albumin Triglycerides Cholesterol LDL Cholesterol, Calc HDL Cholesterol Vitamin B12 TSH Urine Color Urine Appearance Urine pH Ur Specific [place] Urine Protein Urine Glucose (UA) Urine Ketones Urine Blood Urine Nitrite Ur Leukocyte Esterase Urine RBC Urine WBC Ur Squamous Epith Cells Urine Bacteria Hyaline Casts Urine Test Salicylates Urine Opiates Screen Ur Buprenorphine Scrn Ur Oxycodone Screen Urine Methadone Screen Urine Fentanyl Screen Urine Fentanyl Ur Norfentanyl Quant Acetaminophen Ur Barbiturates Screen Ur Phencyclidine Scrn Ur Amphetamines Screen U Benzodiazepines Scrn [place] Urine Cocaine Screen U Marijuana (THC) Screen Ethyl Alcohol T.pallidum Ab (EIA) Chlam trachomat DNA PCR Hep Bs Antigen Hep Bs Antibody Hep B Core Total Ab Hepatitis C Ab (EIA) HIV 1&2 Ab/P24 Ag 4thGn Influenza Type A (PCR) Influenza Type B (PCR) N.gonorrhoeae DNA (PCR) RSV RNA Qual (PCR) SARS-CoV-2 RNA (RT-PCR) S. pyogenes GrpA MARS T. vaginalis (PCR) NOT DETECTED Bact Vaginosis (PCR) NEGATIVE C. krusei/glabrata (PCR) NOT DETECTED Din[place] group (PCR) NOT DETECTED 05/23/24 16:10 Urine clean catch - Clean Catch Midstream Urine Culture - Preliminary Culture too young to evaluate. 05/23/24 15:41 Blood - Venous Blood Culture - Pending 05/23/24 15:41 Blood - Venous Blood Culture - Pending 05/19/24 Unknown Urine clean catch - Clean Catch Midstream Urine Culture - Final Strep agalactiae (Grp B) Imaging Diagnostic Imaging Impressions Chest X-Ray 05/23/24 17:33 IMPRESSION: Mildly low lung volumes with mild bibasilar subsegmental atelectasis. No dense focal consolidative process. Electronically signed by: Woo Taylor DO 05/23/2024 07:20 PM EDT RP DS: Summary Hospital Course Hospital Course: HPI: Patient 33 yo female with history of depression, borderline personality disorder, opioid use disorder on methadone, cocaine use disorder, alcohol use disorder who presents with increased depression and SI with plan to OD on medication. Patient reported she was at a [facility] program until 2 days ago when she self DC'd. She told the CARE team the environment was disgusting and she was being bullied. She became hopeless because of homelessness and relapsed. UTOX positive for cocaine, methadone and fentanyl. She also reports stopping Li because it is not working. She was seen in her room today. She had been complaining of alcohol withdrawal and was put on CIWA on admission. Prior to the interview she had received Ativan and methadone. She was difficult to stay awake and was nodding off throughout the interview. Majority of history was obtained from review of records and CARE team assessment. Denied active SI. Denied AVH. Hospital course: Patient reported that she is chronically depressed but became much more so this past week; on admission she denied any active SI. She explained that while she is at the [facility] program, she was embroiled in substance abuse, and drinking alcohol for the 3 weeks she was there. This past week She left the program but did not say why. She reports remaining very depressed for the past few days but reported that SI was only a little bit. On the unit, SI soon fully resolved. Discussed medication management and patient wanted to get back on Wellbutrin which she had been on in the past and said was working well for her, not sure why it was ever discontinued; said she had stopped taking lithium, that it was not helpful and does not want to be on it anymore. Patient's mood improved and she was future oriented. She remained without any SI. There was concern however that patient was using while on the unit as her eyes were red and she had a sedated look. Incident: Staff found a vape pen in her room which they removed and placed in her belongings in a locked closet on the unit; patient said the vape was for cannabis. Patient remained in mild alcohol withdrawal and CIWA continued. The next morning patient reported malaise, with headache, light sensitivity, neck stiffness, sore throat, body aches; negative Kernigs/brudzinski sign and no AMS; also negative for covid/flu/rsv, strep. A consult was placed however patient soon started feeling better, was walking around, eating, and reporting symptoms resolving, no neck stiffness. In the meantime med consult saw patient who reported watery stool for 2 days (which patient denied to play writer, saying she was constipated and had even asked nursing for an enema), productive cough, chills, concern for STD; host of labs, imaging ordered. Patient remained overall feeling physically better, with vitals WNL, WBC WNL and other labs coming back unremarkable (removing any concern for meningitis), other labs pending (UDS positive for fentanyl (and methadone), however fentanyl is long- acting and positive result is inconclusive; quantitative analysis ordered). Incident: That evening when staff was in patient belonging room, patient tried to sneak in and grabbed and absconded with vape pen again; she was observed by staff. Initially patient denied that she had it; another staff member became involved and she continued to deny she had it. Eventually however when she was told staff would need to call security, patient turned over the vape pen. Team discussed incident at length and agreed that at this time, patient was not ready to engage in treatment, did not require inpatient level of care and is currently unable to benefit from treatment available to her on the unit. This was the 2nd attempt to use contraband on the unit and following the same behavioral pattern she demonstrated at her recent [facility] program. It is play writer's and team's opinion that currently patient is jeopardizing the safety and integrity of the unit and her peers, is unable to follow rules, adhere to boundaries and is appropriate for administrative discharge. Php Consultant discussed this with patient who said she understood and expected it. A little later she told nurse that she was going to discharge, relapse and overdose. Of note, patient had been denying SI which only came up now in the context of being discharged. Php Consultant and social service assistant again met with patient to discuss further and patient said I do not know what I am going to do.... She expressed frustration that she was being discharged for just this infraction however again said she expected it. Patient shared that her goal is to stay clean and she asked for a lift to [facility] in an effort to remain sober. Php Consultant and social service assistant discussed that if she ever felt unsafe she could of course returned to the hospital which she said she understood. Patient of course remains vulnerable to relapse and decompensation. Given her struggles with addiction it is likely that she will again struggle with relapse and wander into unsafe situations and behaviors. However this is a longstanding, chronic issue for her that will not resolve with longer inpatient stay; rather it re quires consistent commitment to sobriety and treatment, for which patient remains ambivalent. Patient asked to be transported to [facility], well-known outpatient establishment supporting sobriety. She is back on effective medication regimen and given a script fo a short course of Ativan to help with residual alcohol withdrawal. She is not in imminent risk for harm to self or others and appropriate for discharge. Regarding medical issues, patient reported that physically she was feeling better, no malaise, no body aches, no stiffness; ; she continued to report constipation the same morning asked nursing for an enema; she denied any recent bouts of loose stool. Negative for all STDs. As some labs were uncollected, play writer discussed case with hospitalist Dr. Mosquera who reviewed the case and did not feel that patient needed to remain for further workup or lab results; he recommended infectious disease outpt appointment to further assess hep C (patient refused lab for hep C viral load) and to consider antibiotic for possible UTI (patient denied frequency or urgency but reported some stinging sensation on urination; as other genitourinary infectious labs all negative, started Macrobid for possible UTI-since penicillin allergy). Time spent discussing smoking cessation with patient: 3 to 10 minutes Status at Discharge Functional status at discharge: independent ambulation Overall status at discharge: patient is back to baseline Time Spent with Patient Time attestation: Total time managing care of this patient today __50__ minutes. Time spent: Greater than 30 minutes Specific discharge activities: Meeting with patient; discussed with team, discussed with hospitalist; reviewed labs, prescriptions, chart Discharge Plan Discharge Anticipated Discharge Date/Time: 05/24/24 13:00 Patient Disposition: Residential Discharge Diagnosis: MDD, recurrent, severe, in partial remission Referrals: [facility] ([facility] [Other] - 1 Week (M-F 8am - 8pm Sat 9-5 This is a walk-in same day appt for therapy and psychiatry. Bring your discharge paperwork with you. ) [facility] [place] [facility] [Other] - 1 Week (This is a walk-in same day intake for therapy and psychiatry. 10-12 M-F) [facility] Curriculum And Assessment Coordinator [facility] [Other] - 3-5 Days (Reach out to [facility] for case management support. ) [facility] [place] [facility] [Other] - 1 Week (Can help with residential placement as well as other needs such as transportation support, self care items. Office hours are 9-3pm) Marisel Lester MD [Physician] - 05/31/24 1:00 pm Physician,Unknown J [Primary Care Provider] - (Pt declined) Discharge Medications: New methocarbamol 500 mg Tablet 500 mg PO TID PRN (Reason: for restless leg) 30 Days Qty: 90 0RF bupropion HCl 150 mg Tablet Extended Release 24 Hr 150 mg PO DAILY 30 Days Qty: 30 0RF hydroxyzine HCl 10 mg Tablet 10 mg PO Q6H PRN (Reason: Anxiety) 30 Days Qty: 30 0RF lorazepam 1 mg Tablet 1 mg PO DAILY 5 Days Qty: 5 0RF sennosides-docusate sodium [Senna Plus] 8.6-50 mg Tablet 1 tab PO BID PRN (Reason: Constipation) 30 Days Qty: 60 0RF melatonin 3 mg Tablet 6 mg PO BEDTIME PRN (Reason: Insomnia) 30 Days Qty: 60 0RF nitrofurantoin monohyd/m-cryst [Macrobid] 100 mg capsule 100 mg PO BID 7 Days Qty: 13 0RF Rx Instructions: must administer with a meal/food Continued methadone [Methadose] 10 mg/mL concentrate 130 mg PO DAILY Patient Comments: verified by last dose letter Rx Instructions: Partial Fill upon patient request. gabapentin 400 mg Capsule 400 mg PO TID 30 Days Qty: 90 0RF baclofen 20 mg Tablet 20 mg PO BID 30 Days Qty: 60 0RF buspirone 10 mg Tablet 10 mg PO TID 30 Days Qty: 90 0RF fluoxetine 10 mg Capsule 30 mg PO DAILY 30 Days Qty: 90 0RF albuterol sulfate [Ventolin HFA] 90 mcg/actuation Hfa Aerosol Inhaler 2 puff inhalation Q4H PRN (Reason: Shortness Of Breath) 30 Days Qty: 6.7 0RF quetiapine 50 mg tablet 50 mg PO TID PRN (Reason: Anxiety) 30 Days Qty: 90 0RF quetiapine 150 mg tablet 150 mg PO BID 30 Days Qty: 60 0RF Changed nicotine (polacrilex) 2 mg Gum 2 mg buccal Q2H PRN (Reason: Nicotine Cravings) 30 Days Qty: 100 0RF nicotine 21 mg/24 hr Patch 24 Hour 21 mg transdermal DAILY PRN (Reason: nicotine cravings) 28 Days Qty: 28 0RF Discontinued lithium carbonate 450 mg Tablet Extended Release 450 mg PO BID Qty: 0 0RF Discharge Orders: Discharge Order (Routine); Ordered 05/24/24 Ordered By: Rosales Zamora Diet: Regular diet Activity on Discharge: As tolerated Stand Alone Forms: Patient Portal Discharge page, Community Support Print Language: Eritrean Care Plan Goals: Maintain mood and safe behaviors Take medications as prescribed Continue to pursue sobriety Practice coping skills Continue with outpatient providers and reach out to them as needed Health Concerns: Mood stability and behaviors Sobriety UTI Positive for HCV antibodies Plan of Treatment: Follow up with your PCP, psychiatric provider and other outpatient providers regarding above concerns Take medications as prescribed Assessment: Risk assessment at time of discharge:? Patient was interviewed prior to discharge and found to be fully oriented and without any SI or HI. Patient has improved insight and judgment and wants to continue treatment. Patient is not in imminent risk of harm to self or others and has a safety plan that includes presenting to the closest ER or calling 911 if feeling unsafe.? Patient has been observed closely by nursing and unit staff throughout admission; patient has not engaged in any behaviors that suggest dangerousness to self or others and has demonstrated appropriate behaviors and impulse control
[2024-05-24] MEDS: Nitrofurantoin Monohyd/M-Cryst 100 MG CAPSULE PO (13:02)
[2024-05-30 14:45] LABS: Fentanyl, Ur 67.1 (H); Norfentanyl, Ur 125.3 (H)
== END 2024-05-24 14:00 | disposition home or self-care (01) | DRG 751 ==
LOC: HO.ED 16:54 → HO.PM5 17:08
PROVIDERS: Physician Assistant; Admitting Provider Clinical Nurse Specialist Psychiatric/Mental Health; Emergency Provider Student in an Organized Health Care Education/Training Program; Visit Provider Psychiatry & Neurology Psychiatry
DX: F33.2 Major depressive disorder, recurrent severe without psychotic features (principal); F11.20 Opioid dependence, uncomplicated; F17.210 Nicotine dependence, cigarettes, uncomplicated; F19.10 Other psychoactive substance abuse, uncomplicated; J45.20 Mild intermittent asthma, uncomplicated; F60.3 Borderline personality disorder; Z59.02 Unsheltered homelessness; Z20.822 Contact with and (suspected) exposure to COVID-19; Z23 Encounter for immunization; Z71.6 Tobacco abuse counseling; Z91.148 Patient's other noncompliance with medication regimen for other reason; Z79.899 Other long term (current) drug therapy
CPT/HCPCS: 0241U; 0352U; 36415; 71045; 80048; 80053; 80061; 80076; 80143; 80178; 80179; 80307; 80354; 81001; 81025; 82607; 83036; 83735; 84443; 85025; 86704; 86706; 86780; 86803; 87040; 87086; 87147; 87340; 87389; 87491; 87591; 87651; 90656; 92950; 93005; 99285; S9485

== ENCOUNTER → 2024-05-19 15:06 | Outpatient (BNV) | payer OTHER, SELFPAY | PROVIDERS: Admitting Provider Clinical Nurse Specialist Psychiatric/Mental Health; Emergency Provider Student in an Organized Health Care Education/Training Program; Visit Provider Psychiatry & Neurology Psychiatry | DX: F60.3 Borderline personality disorder (principal); F33.1 Major depressive disorder, recurrent, moderate; F19.90 Other psychoactive substance use, unspecified, uncomplicated | CPT/HCPCS: 90792; 99231; 99232; 99239 ==

== ENCOUNTER → 2024-05-19 15:06 | Outpatient (BNV) | payer OTHER, SELFPAY | PROVIDERS: Admitting Provider Clinical Nurse Specialist Psychiatric/Mental Health; Emergency Provider Student in an Organized Health Care Education/Training Program; Visit Provider Physician Assistant | DX: Z02.2 Encounter for examination for admission to residential institution (principal) | CPT/HCPCS: 99429 ==

== ENCOUNTER 2024-05-25 12:18 | Emergency (ER) | payer OTHER, SELFPAY ==
[2024-05-25 12:59] VITALS: BP 115/78; PULSE 90; RESP 16; TEMP 36.1; O2SAT 96; BMI 31.6
--- NOTE | 2024-05-25 13:00 | ED_ITS ---
HPI - General Adult General Chief complaint: Psychiatric Symptoms Stated complaint: Medical clearance Time Seen by Provider: 05/25/24 14:22 Source: patient Mode of arrival: ambulatory Limitations: no limitations History of Present Illness HPI narrative: 33 year old female presents emergency department for SI and drug abuse. Patient has been admitted with a stent but has no she is going to get there patient has any falls or injuries cough chest pain nausea vomiting or diarrhea. Patient just here 2 days ago of note she states she was at an outpatient facility they felt she could not stay there she denies any falls or injuries denies chest pain cough or fever. Related Data Home Medications ?Medication ?Instructions ?Recorded ?Confirmed methadone 10 mg/mL oral 130 mg PO DAILY 07/08/23 05/19/24 concentrate (Methadose) Previous Rx's ?Medication ?Instructions ?Recorded albuterol sulfate 90 mcg/actuation 2 puff inhalation Q4H PRN 05/24/24 aerosol inhaler (Ventolin HFA) Shortness Of Breath 30 days #6.7 grams baclofen 20 mg tablet 20 mg PO BID 30 days #60 tabs 05/24/24 bupropion HCl 150 mg 24 hr tablet, 150 mg PO DAILY 30 days #30 tabs 05/24/24 extended release buspirone 10 mg tablet 10 mg PO TID 30 days #90 tabs 05/24/24 fluoxetine 10 mg capsule 30 mg (3 x 10 mg) PO DAILY 30 days 05/24/24 #90 caps gabapentin 400 mg capsule 400 mg PO TID 30 days #90 caps 05/24/24 hydroxyzine HCl 10 mg tablet 10 mg PO Q6H PRN Anxiety 30 days 05/24/24 #30 tabs lorazepam 1 mg tablet 1 mg PO DAILY 5 days #5 tabs 05/24/24 melatonin 3 mg tablet 6 mg (2 x 3 mg) PO BEDTIME PRN 05/24/24 Insomnia 30 days #60 tabs methocarbamol 500 mg tablet 500 mg PO TID PRN for restless leg 05/24/24 30 days #90 tabs nicotine (polacrilex) 2 mg gum 2 mg buccal Q2H PRN Nicotine 05/24/24 Cravings 30 days #100 ea nicotine 21 mg/24 hr daily 21 mg transdermal DAILY PRN 05/24/24 transdermal patch nicotine cravings 28 days #28 ea nitrofurantoin 100 mg PO BID 7 days #13 caps 05/24/24 monohydrate/macrocrystals 100 mg capsule (Macrobid) quetiapine 150 mg tablet 150 mg PO BID 30 days #60 tabs 05/24/24 quetiapine 50 mg tablet 50 mg PO TID PRN Anxiety 30 days 05/24/24 #90 tabs sennosides 8.6 mg-docusate sodium 1 tab PO BID PRN Constipation 30 05/24/24 50 mg tablet (Senna Plus) days #60 tabs doxycycline hyclate 100 mg tablet 100 mg PO BID #13 tabs 05/25/24 Allergies Allergy/AdvReac Type Severity Reaction Status Date / Time Penicillins [PENICILLINS] Allergy Severe ANAPHYLAXIS Verified 05/25/24 13:00 soap [SOAP] Allergy Intermediate ITCHING Verified 05/25/24 13:00 aspirin [ASA] Allergy Unknown ANAPHYLAXIS Verified 05/25/24 13:00 cat dander [cats] Allergy Unknown moderately Verified 05/25/24 13:00 severe latex [LATEX] Allergy Unknown ANAPHYLAXIS Verified 05/25/24 13:00 tramadol [TRAMADOL] Allergy Unknown HIVES, Rash Verified 05/25/24 13:00 squid Allergy Unknown Verified 05/25/24 13:00 trazodone AdvReac Severe restless Verified 05/25/24 13:00 legs Review of Systems 2 Review of Systems: Review of systems: General: Patient denies any fever chills recent illness or falls Musculoskeletal: Denies back pain or body aches or other injuries HEENT: denies headache, runny nose, ear pain Respiratory: denies shortness of breath, cough Cardiovascular: no chest pain or palpitations : denies dysuria, frequency Abdomen: no nausea vomiting denies abdominal pain Extremities: no swelling, no pain Skin: no diaphoresis Yes all other systems are reviewed and are negative PMFSH Past Medical History Medical History Borderline personality disorder Polysubstance use disorder Abscess of left arm Left arm cellulitis Substance abuse Social History Social History Household Members: None Housing: Homeless Do you presently have visiting nurse or other home services: No Alcohol intake: current Alcohol intake frequency: a few times a month Alcohol type: wine Patient Tobacco Use Status: Current everyday Tobacco user Tobacco use type: Cigarette Cigarette Packs Per Day: 1 Cigarettes Per Day: 20.0 e-Cigarette/Vaping Use: Former Use Second Hand Smoke Exposure: Yes Use of substances other than those prescribed or required for medical reasons: Yes Substance Use Type: Unknown Advance Directives: No Do you have a plan to hurt others: No Plan Patient : No service: No Sexual orientation: Straight/Heterosexual Physical Exam ED Vital Signs: Vital Signs - 24 hr 05/25/24 12:59 05/25/24 16:35 05/25/24 18:05 Temperature 97.0 F 96.9 F 97.2 F Pulse Rate 90 71 71 Respiratory Rate 16 16 16 Blood Pressure 115/78 103/66 96/63 Pulse Oximetry 96 93 94 Oxygen Delivery Method Room Air Room Air Room Air BMI result Body Mass Index 31.6 General: Well-appearing well-nourished in no signs of distress HEENT: Normocephalic atraumatic Neck: No signs of JVD, no masses no tenderness or lymphadenopathy Cardiovascular: Regular rate and rhythm Respiratory: Clear to auscultation bilaterally Abdomen: Soft nontender no masses Extremities: Normal pedal pulses no signs of edema Skin: Dry warm no rashes Back: No tenderness full ROM Course Course Course Narrative: This is a Rapid Medical Examination (RME) performed by Tank Mccarthy PA-C in triage. Full HPI, ROS, assessment and treatment plan per primary provider in the Main ED. 33 yo female sent in from [facility] for medical clearance before she goes to [facility] where she is going for mental health and substance use. +SI and depression. has been using drugs and alcohol. reportedly has a bed at but doesnt know when or how she is going to get there. Plan: medical clearance, call this isidoro person at [facility] for assistance in placement? Reevaluation(s) Reevaluation #1: Patient is pending placement and care team evaluation I will send out to the oncoming team. Time: 15:44 Medical Decision Making Medical Decision Making MDM Narrative: I will check labs have the patient evaluated care team Patient ready to go to [facility]. Patient complaining of localized pain in the left forearm where she usually injects. Patient able to flex and extend the hand, no signs of tenosynovitis. Skin looks fairly normal, no obvious signs of cellulitis. Given the patient's symptoms, she would benefit from a short course of 1 antibiotic. Patient was given 1 dose of doxycycline here in the ED -also, patient states that she is starting to withdraw from alcohol, requesting 1 dose of Ativan. Given in the ED Differential Diagnosis Differential Diagnoses: The differential diagnosis associated with the presentation includes SI electrolyte abnormality weakness Admission/Observation Consideration of admission/observation: Escalation of care including admission/observation considered Consult Healthcare Provider Management of the patient was discussed with: [facility] Provider Lab Data [facility] Lab Attestation statement: I reviewed the patient's lab results. 05/25/24 13:48 05/25/24 13:48 Labs: Lab Results 05/25/24 Range/Units 13:48 WBC 7.6 (4.8-10.8) X10*3/uL RBC 4.46 (4.20-5.50) X10*6/uL Hgb 12.8 (12.0-16.0) g/dl Hct 37.5 (37.0-47.0) % MCV 84.1 (80.0-98.0) fL MCH 28.7 (27.0-33.0) pg MCHC 34.1 (31.0-35.0) g/dl RDW 12.9 (11.0-16.0) % Plt Count 287 (160-400) X10*3/uL MPV 9.6 (9.4-12.3) fL Immature Gran % (Auto) 0.5 H (0.0-0.4) % Neut % (Auto) 78.1 H (45-73) % Lymph % (Auto) 16.5 L (20-40) % [place] % (Auto) 4.4 (2-11) % Eos % (Auto) 0.1 (0-4) % Baso % (Auto) 0.4 (0-2) % Lymph # (Auto) 1.3 (1.2-4.9) X10*3/uL [place] # (Auto) 0.3 (0.1-1.2) X10*3/uL Eos # (Auto) 0.0 (0.0-0.4) X10*3/uL Baso # (Auto) 0.0 (0.0-0.2) X10*3/uL Abs Immat Gran (auto) 0.04 H (0.00-0.03) X10*3/uL Absolute Neuts (auto) 5.9 (2.0-8.3) x10*3/uL Absolute Nucleated RBC 0.000 (0.0-0.012) X10*3/uL Nucleated RBC % (auto) 0.0 (0.0-0.2) /100WBC Sodium 140 (135-145) mmol/L Potassium 4.2 (3.3-5.1) mmol/L Chloride 104 (96-108) mmol/L Carbon Dioxide 27 (22-29) mmol/L Anion Gap 13 (12-20) BUN 14 (9-16) mg/dL Creatinine 0.72 (0.5-1.4) mg/dL Estim Creat Clear Calc 119.3 Estimated GFR > 60 Random Glucose 92 (60-115) mg/dL Calcium 9.8 (8.4-10.2) mg/dL Magnesium 1.8 (1.6-2.6) mg/dL Total Bilirubin 0.5 (0.0-1.0) mg/dL Direct Bilirubin 0.2 (0.0-0.5) mg/dL AST 36 H (5-31) U/L ALT 40 H (0-31) U/L Alkaline Phosphatase 107 (39-117) U/L Total Protein 8.1 H (6.5-8.0) g/dL Albumin 4.3 (3.5-5.0) g/dL Urine Color Dark Yellow Urine Appearance Cloudy Urine pH 7.5 (5.0-9.0) Ur Specific [place] >= 1.030 H (1.005-1.025) Urine Protein 30 (1+) H (Neg-Trace) mg/dL Urine Glucose (UA) Negative (Negative) mg/dL Urine Ketones Trace (Negative) mg/dL Urine Blood Negative (Negative) Urine Nitrite Negative (Negative) Ur Leukocyte Esterase Moderate (2+) H (Negative) Urine RBC 0-2 (0-2) /HPF Urine WBC 6-10 (0-5) /HPF Ur Squamous Epith Cells 6-10 (0-2) /HPF Urine Bacteria 2+ (None Seen) Hyaline Casts 0-2 (0-2) /LPF Urine Yeast Present Urine Opiates Screen POSITIVE H (Not Detect) Ur Buprenorphine Scrn Not Detected (Not Detect) ng/mL Ur Oxycodone Screen Not Detected (Not Detect) ng/mL Urine Methadone Screen Positive H (Not Detect) ng/mL Urine Fentanyl Screen POSITIVE H (Not Detect) Ur Barbiturates Screen Not Detected (Not Detect) Ur Phencyclidine Scrn Not Detected (Not Detect) Ur Amphetamines Screen Not Detected (Not Detect) U Benzodiazepines Scrn Not Detected (Not Detect) Urine Cocaine Screen POSITIVE H (Not Detect) U Marijuana (THC) Screen Not Detected (Not Detect) Ethyl Alcohol < 10 mg/dL External Record Review External record reviewed: Inpatient record, Office record, Outpatient record, Prior outpatient labs and Prior outpatient radiology Chronic Conditions Drug abuse Discharge Plan Discharge Clinical Impression: Suicidal ideation, Polysubstance use disorder, Cellulitis Patient Disposition: Xfer Other Transfer Details: Gillian Branham Prescriptions: New doxycycline hyclate 100 mg tablet 100 mg PO BID Qty: 13 0RF No Action methadone [Methadose] 10 mg/mL concentrate 130 mg PO DAILY Patient Comments: verified by last dose letter Rx Instructions: Partial Fill upon patient request. methocarbamol 500 mg Tablet 500 mg PO TID PRN (Reason: for restless leg) 30 Days Qty: 90 0RF bupropion HCl 150 mg Tablet Extended Release 24 Hr 150 mg PO DAILY 30 Days Qty: 30 0RF hydroxyzine HCl 10 mg Tablet 10 mg PO Q6H PRN (Reason: Anxiety) 30 Days Qty: 30 0RF lorazepam 1 mg Tablet 1 mg PO DAILY 5 Days Qty: 5 0RF sennosides-docusate sodium [Senna Plus] 8.6-50 mg Tablet 1 tab PO BID PRN (Reason: Constipation) 30 Days Qty: 60 0RF melatonin 3 mg Tablet 6 mg PO BEDTIME PRN (Reason: Insomnia) 30 Days Qty: 60 0RF nicotine (polacrilex) 2 mg Gum 2 mg buccal Q2H PRN (Reason: Nicotine Cravings) 30 Days Qty: 100 0RF gabapentin 400 mg Capsule 400 mg PO TID 30 Days Qty: 90 0RF baclofen 20 mg Tablet 20 mg PO BID 30 Days Qty: 60 0RF buspirone 10 mg Tablet 10 mg PO TID 30 Days Qty: 90 0RF nicotine 21 mg/24 hr Patch 24 Hour 21 mg transdermal DAILY PRN (Reason: nicotine cravings) 28 Days Qty: 28 0RF fluoxetine 10 mg Capsule 30 mg PO DAILY 30 Days Qty: 90 0RF albuterol sulfate [Ventolin HFA] 90 mcg/actuation Hfa Aerosol Inhaler 2 puff inhalation Q4H PRN (Reason: Shortness Of Breath) 30 Days Qty: 6.7 0RF quetiapine 50 mg tablet 50 mg PO TID PRN (Reason: Anxiety) 30 Days Qty: 90 0RF quetiapine 150 mg tablet 150 mg PO BID 30 Days Qty: 60 0RF nitrofurantoin monohyd/m-cryst [Macrobid] 100 mg capsule 100 mg PO BID 7 Days Qty: 13 0RF Rx Instructions: must administer with a meal/food Interventions: Mccracken-Suicide Risk Severity Scale Last Done: 05/25/24 15:21 Print Language: Hebrew
[2024-05-25 13:55] LABS: MANUAL DIFF FLAG NO
[2024-05-25 14:00] LABS: Appearance Urine Cloudy; Color Urine Dark Yellow; Glucose Urine UA Negative (Negative); Leukocyte Esterase Urine Moderate (2+) (Negative); Nitrite Urine Negative (Negative); PH 7.5 (5.0-9.0); Specific Gravity - Urine >= 1.030 (1.005-1.025); UMIC TRIGGER UACC YES; Urine Blood Negative (Negative); Urine Ketones Trace mg/dL (Negative); Urine Protein 30 (1+) mg/dL (Neg-Trace)
[2024-05-25 14:01] LABS: Basophils Percent Auto 0.4 % (0-2); Eosinophils Percent Auto 0.1 % (0-4); Hematocrit 37.5 % (37.0-47.0); Hemoglobin 12.8 g/dl (12.0-16.0); Imm Gran Abs Auto 0.04 X10*3/uL (0.00-0.03); Imm Gran Pct Auto 0.5 % (0.0-0.4); Lymphocytes Absolute Auto 1.3 X10*3/uL (1.2-4.9); Lymphocytes Percent Auto 16.5 % (20-40); Mean Corpuscular HGB Conc 34.1 g/dl (31.0-35.0); Mean Corpuscular Hemoglobin 28.7 pg (27.0-33.0); Mean Corpuscular Volume 84.1 fL (80.0-98.0); Mean Platelet Volume 9.6 fL (9.4-12.3); Monocytes Absolute Auto 0.3 X10*3/uL (0.1-1.2); Monocytes Percent Auto 4.4 % (2-11); Neutrophils Absolute Auto 5.9 x10*3/uL (2.0-8.3); Neutrophils Percent Auto 78.1 % (45-73); Platelet Count 287 X10*3/uL (160-400); Red Blood Count 4.46 X10*6/uL (4.20-5.50); Red Cell Distribution Width 12.9 % (11.0-16.0); White Blood Count 7.6 X10*3/uL (4.8-10.8)
--- NOTE | 2024-05-25 14:05 | PC.NURSE ---
NOT IN THE WAITING ROOM
[2024-05-25 14:10] LABS: Amphetamine Screen Urine Not Detected (Not Detect); Barbiturates, Urine Not Detected (Not Detect); Benzodiazepines Screen Urine Not Detected (Not Detect); Buprenorphine Scr Not Detected (Not Detect); Cannabinoid Screen Urine Not Detected (Not Detect); Cocaine Screen Urine POSITIVE (Not Detect); Fentanyl, urine POSITIVE (Not Detect); Methadone Screen, Urine Positive (Not Detect); Opiate Screen Urine POSITIVE (Not Detect); Oxycodone Screen Urine Not Detected (Not Detect); Phencyclidine Screen Urine Not Detected (Not Detect)
[2024-05-25 14:15] LABS: Alanine Aminotransferase 40 U/L (0-31); Albumin Level 4.3 g/dL (3.5-5.0); Alkaline Phosphatase 107 U/L (39-117); Anion Gap 13 (12-20); Aspartate Amino Transferase 36 U/L (5-31); Bilirubin Direct 0.2 mg/dL (0.0-0.5); Bilirubin Total 0.5 mg/dL (0.0-1.0); Blood Urea Nitrogen 14 mg/dL (9-16); Calcium 9.8 mg/dL (8.4-10.2); Carbon Dioxide 27 mmol/L (22-29); Chloride 104 mmol/L (96-108); Creatinine Clr Calc Pharmacy 119.3; Estimated Glomerular Filt Rate > 60; Ethanol < 10 mg/dL; Glucose Random 92 mg/dL (60-115); Magnesium 1.8 mg/dL (1.6-2.6); Potassium 4.2 mmol/L (3.3-5.1); Sodium 140 mmol/L (135-145); Total Protein 8.1 g/dL (6.5-8.0)
[2024-05-25 14:21] LABS: Bacteria Urine 2+ (None Seen); Hyaline Casts Urine 0-2 /LPF (0-2); RBC Urine 0-2 /HPF (0-2); UACC Culture Trigger YES
--- NOTE | 2024-05-25 15:14 | PC.NURSE ---
patient from external triage, states [facility] and he friend was able to get her a bed at [facility] pending medical clearence. patient states she was feeling suicidal and took a bunch of pills but is unable to tell this RN what kind of pills she took. patient contracts to safety while she is in Emergency department, blood work and urine obtained in triage. patient with 1:1 sitter at bedside, denies AH/VH, denies nausea vomiting of diarrhea, pupils appear dilated, eyes blood shot, patient states she thinks if she does not get help then she will just end up taking more pills. belongings stored in decon by security, patient changed into appropriate hospital attire. calm and cooperative at this time, agreeable with plan of care.
[2024-05-25 16:35] VITALS: BP 103/66; PULSE 71; RESP 16; TEMP 36.1; O2SAT 93
--- NOTE | 2024-05-25 17:20 | PC.NURSE ---
patient found to be vaping on stretcher, vape confiscated by this RN and given to security to put with belongings
[2024-05-25 18:05] VITALS: BP 96/63; PULSE 71; RESP 16; TEMP 36.2; O2SAT 94
--- NOTE | 2024-05-25 18:07 | PC.NURSE ---
care team at bedside
--- NOTE | 2024-05-25 18:40 | PC.NURSE ---
patient provided with dinner tray
--- NOTE | 2024-05-25 19:29 | PC.NURSE ---
pt moved to 22H, resting comfortably on the stretcher at this time,breathing even and unlabored. sitter at bedside.
--- NOTE | 2024-05-25 19:54 | MHC.CARE ---
Pt accepted to [facility] for tonight. ETA [place]. Accepting is [facility]. Accepting facility will call for N2N
[2024-05-25] MEDS: LORazepam 1 MG TABLET 2 MG PO (20:57)
[2024-05-25] MEDS: Doxycycline Monohydrate 100 MG CAPSULE PO (20:57)
[2024-05-25 20:58] VITALS: BP 101/59; PULSE 79; RESP 17; TEMP 36.6; O2SAT 96
[2024-05-25 21:02] LABS: COVID-19 Test Negative (Negative); IDNOW Serial# 152EDE1D
[2024-05-25 21:13] VITALS: BP 101/59; PULSE 79; RESP 17; TEMP 36.6; O2SAT 96
== END 2024-05-25 21:14 | disposition other institution (70) ==
PROVIDERS: Physician Assistant; Emergency Provider Student in an Organized Health Care Education/Training Program
DX: F11.188 Opioid abuse with other opioid-induced disorder (principal); F33.1 Major depressive disorder, recurrent, moderate; R45.851 Suicidal ideations; F17.210 Nicotine dependence, cigarettes, uncomplicated; L03.114 Cellulitis of left upper limb; Z11.52 Encounter for screening for COVID-19; Z51.81 Encounter for therapeutic drug level monitoring; Z79.899 Other long term (current) drug therapy
CPT/HCPCS: 36415; 80048; 80076; 80307; 81001; 81003; 83735; 85025; 87635; 99284; 99285; S9485

== ENCOUNTER 2024-05-31 22:53 | Emergency (ER) | payer OTHER, SELFPAY ==
[2024-06-01 00:03] VITALS: BP 102/66; PULSE 86; RESP 18; TEMP 36.8; O2SAT 95; BMI 28.3
[2024-06-01 00:19] LABS: MANUAL DIFF FLAG NO
[2024-06-01 00:21] LABS: Basophils Percent Auto 0.2 % (0-2); Eosinophils Percent Auto 0.1 % (0-4); Hematocrit 40.8 % (37.0-47.0); Hemoglobin 14.1 g/dl (12.0-16.0); Imm Gran Abs Auto 0.12 X10*3/uL (0.00-0.03); Imm Gran Pct Auto 0.8 % (0.0-0.4); Lymphocytes Absolute Auto 1.7 X10*3/uL (1.2-4.9); Mean Corpuscular HGB Conc 34.6 g/dl (31.0-35.0); Mean Corpuscular Hemoglobin 28.4 pg (27.0-33.0); Mean Corpuscular Volume 82.3 fL (80.0-98.0); Mean Platelet Volume 9.2 fL (9.4-12.3); Monocytes Absolute Auto 0.6 X10*3/uL (0.1-1.2); Monocytes Percent Auto 3.6 % (2-11); Neutrophils Percent Auto 84.3 % (45-73); Platelet Count 390 X10*3/uL (160-400); Red Blood Count 4.96 X10*6/uL (4.20-5.50); Red Cell Distribution Width 12.9 % (11.0-16.0); White Blood Count 15.4 X10*3/uL (4.8-10.8)
[2024-06-01 00:41] LABS: Acetaminophen LAB < 3 mcg/mL (<30); Alanine Aminotransferase 23 U/L (0-31); Albumin Level 4.7 g/dL (3.5-5.0); Alkaline Phosphatase 118 U/L (39-117); Anion Gap 16 (12-20); Aspartate Amino Transferase 26 U/L (5-31); Bilirubin Total 0.5 mg/dL (0.0-1.0); Blood Urea Nitrogen 21 mg/dL (9-16); Carbon Dioxide 25 mmol/L (22-29); Chloride 101 mmol/L (96-108); Creatinine Clr Calc Pharmacy 90.4; Estimated Glomerular Filt Rate > 60; Ethanol < 10 mg/dL; Glucose Random 100 mg/dL (60-115); Potassium 5.1 mmol/L (3.3-5.1); Salicylate < 5.0 mg/dL (15-30); Sodium 137 mmol/L (135-145); Total Protein 8.8 g/dL (6.5-8.0)
--- NOTE | 2024-06-01 00:42 | PC.NURSE ---
skin check comleted by t/w no evidence of contrband or injury, superficial abrasion/injection sites on wrists.
--- NOTE | 2024-06-01 04:55 | ED_ITS ---
HPI - Psych General Chief Complaint: Psychiatric Symptoms Stated Complaint: abd pain and discomfort Time Seen by Provider: 06/01/24 04:50 Source: patient Mode of arrival: ambulatory Limitations: no limitations History of Present Illness ED Provider: Dr. Berkley Alvarez HPI Narrative: Patient comes to the emergency room complaining of suicidal ideation. Patient states that she would be planning to cutting her wrists. Patient reports increase in stress and depression. Patient states she is taking his medications as prescribed. Patient was discharged from the inpatient psychiatric floor a bout a week ago. Patient admits to using IV drugs. Patient denies fever chills. Related Data Home Medications ?Medication ?Instructions ?Recorded ?Confirmed methadone 10 mg/mL oral 130 mg PO DAILY 07/08/23 05/19/24 concentrate (Methadose) Previous Rx's ?Medication ?Instructions ?Recorded albuterol sulfate 90 mcg/actuation 2 puff inhalation Q4H PRN 05/24/24 aerosol inhaler (Ventolin HFA) Shortness Of Breath 30 days #6.7 grams baclofen 20 mg tablet 20 mg PO BID 30 days #60 tabs 05/24/24 bupropion HCl 150 mg 24 hr tablet, 150 mg PO DAILY 30 days #30 tabs 05/24/24 extended release buspirone 10 mg tablet 10 mg PO TID 30 days #90 tabs 05/24/24 fluoxetine 10 mg capsule 30 mg (3 x 10 mg) PO DAILY 30 days 05/24/24 #90 caps gabapentin 400 mg capsule 400 mg PO TID 30 days #90 caps 05/24/24 hydroxyzine HCl 10 mg tablet 10 mg PO Q6H PRN Anxiety 30 days 05/24/24 #30 tabs melatonin 3 mg tablet 6 mg (2 x 3 mg) PO BEDTIME PRN 05/24/24 Insomnia 30 days #60 tabs methocarbamol 500 mg tablet 500 mg PO TID PRN for restless leg 05/24/24 30 days #90 tabs nicotine (polacrilex) 2 mg gum 2 mg buccal Q2H PRN Nicotine 05/24/24 Cravings 30 days #100 ea nicotine 21 mg/24 hr daily 21 mg transdermal DAILY PRN 05/24/24 transdermal patch nicotine cravings 28 days #28 ea quetiapine 150 mg tablet 150 mg PO BID 30 days #60 tabs 05/24/24 quetiapine 50 mg tablet 50 mg PO TID PRN Anxiety 30 days 05/24/24 #90 tabs sennosides 8.6 mg-docusate sodium 1 tab PO BID PRN Constipation 30 05/24/24 50 mg tablet (Senna Plus) days #60 tabs Allergies Allergy/AdvReac Type Severity Reaction Status Date / Time Penicillins [PENICILLINS] Allergy Severe ANAPHYLAXIS Verified 06/01/24 00:06 soap [SOAP] Allergy Intermediate ITCHING Verified 06/01/24 00:06 aspirin [ASA] Allergy Unknown ANAPHYLAXIS Verified 06/01/24 00:06 cat dander [cats] Allergy Unknown moderately Verified 06/01/24 00:06 severe latex [LATEX] Allergy Unknown ANAPHYLAXIS Verified 06/01/24 00:06 tramadol [TRAMADOL] Allergy Unknown HIVES, Rash Verified 06/01/24 00:06 squid Allergy Unknown Verified 06/01/24 00:06 trazodone AdvReac Severe restless Verified 06/01/24 00:06 legs Review of Systems 2 Review of Systems: Constitutional : No Weight loss, No Fever, No Chills, No Night Sweats, No Fatigue, No Malaise ENT/Mouth : No Hearing loss, No Ear Pain, No Nasal Congestion, No Sinus Pain, No Hoarseness, No sore throat, No Rhinorrhea, No Swallowing Difficulty Eyes: No Eye Pain, No Swelling, No Redness, No Foreign Body, No Discharge, No Vision Changes Cardiovascular : No Chest Pain, No SOB, No Dyspnea on Exertion, No Orthopnea, No Edema, No Palpitations Respiratory : No Cough, No Sputum, No Wheezing, No Smoke Exposure, No Dyspnea Gastrointestinal : No Nausea, No Vomiting, No Diarrhea, No Constipation, No abdominal Pain, No Hematochezia, No Melena Genitourinary : no irregular bleeding, No Dysuria, No Urinary Frequency, No Hematuria, No Urinary Incontinence, No Urgency, No Flank Pain, No Urinary Flow Changes, No Hesitancy Musculoskeletal : No joint pain, No Myalgias, No Joint Swelling Skin : No Skin Lesions, No rash Neuro : No Weakness, No Numbness, No Paresthesias, No Loss of Consciousness, No Dizziness, No Headache Psych : Complaining of anxiety and depression, suicidal ideation, planning to cut wrists, no HI Heme/Lymph: No Bruising, No Bleeding,No Lymphadenopathy Endocrine : No Polyuria, No Polydipsia, No Temperature Intolerance [facility] Past Medical History Medical History Routine medical exam Depression Borderline personality disorder Polysubstance use disorder Abscess of left arm Left arm cellulitis Substance abuse Social History Social History Household Members: None Housing: Homeless Do you presently have visiting nurse or other home services: No Alcohol intake: current Alcohol intake frequency: a few times a month Alcohol type: wine Patient Tobacco Use Status: Current everyday Tobacco user Tobacco use type: Cigarette Cigarette Packs Per Day: 1 Cigarettes Per Day: 20.0 e-Cigarette/Vaping Use: Former Use Second Hand Smoke Exposure: Yes Substance Use Type: Unknown Advance Directives: No Advance Directives Information Provided: Yes service: No Sexual orientation: Straight/Heterosexual Physical Exam 2 Vital Signs: Vital Signs: Last Vital Signs Temp 98.3 F 06/01/24 00:03 Pulse 86 06/01/24 00:03 Resp 18 06/01/24 00:03 BP 102/66 06/01/24 00:03 Pulse Ox 95 06/01/24 00:03 O2 Del Method Room Air 06/01/24 00:03 BMI result Body Mass Index 28.3 Const: Other: Appearance: Alert. Oriented X3. No acute distress. Eyes: Pupils equal, round and reactive to light. ENT: Pharynx normal. Neck: Normal inspection. Neck supple. No lymph nodes noted. No crepitus CVS: Normal heart rate and rhythm. Pulses normal. Normal S1 and S2 Respiratory: No respiratory distress. Breath sounds normal. No Wheezing. No rales Abdomen: Soft and nontender. No rigidity. No distention. Skin: Skin warm and dry. Normal skin color. Normal skin turgor. Extremities: No lower extremity edema. No Lacerations. No Rash Neuro: Oriented X 3. No motor deficit. No sensory deficit. Moving all extremities. No slurred speech. CN 2 through 12 grossly intact Psych: calm, cooperative, normal affect Medical Decision Making Medical Decision Making MDM Narrative: My interpretation of labs: Patient's white blood cell count 15.4, no clear source of infection. However, patient has not provided a urinalysis. Patient asymptomatic. Chemistry within normal limits -care team consult pending - Differential Diagnosis Differential Diagnoses: The differential diagnosis associated with the presentation includes (Anxiety, depression, polysubstance abuse) Admission/Observation Consideration of admission/observation: Escalation of care including admission/observation considered (Patient is under physician observation waiting to be seen by the care team) Lab Data 06/01/24 00:15 06/01/24 00:15 Labs: Lab Results 06/01/24 Range/Units 00:15 WBC 15.4 H (4.8-10.8) X10*3/uL RBC 4.96 (4.20-5.50) X10*6/uL Hgb 14.1 (12.0-16.0) g/dl Hct 40.8 (37.0-47.0) % MCV 82.3 (80.0-98.0) fL MCH 28.4 (27.0-33.0) pg MCHC 34.6 (31.0-35.0) g/dl RDW 12.9 (11.0-16.0) % Plt Count 390 D (160-400) X10*3/uL MPV 9.2 L (9.4-12.3) fL Immature Gran % (Auto) 0.8 H (0.0-0.4) % Neut % (Auto) 84.3 H (45-73) % Lymph % (Auto) 11.0 L (20-40) % [place] % (Auto) 3.6 (2-11) % Eos % (Auto) 0.1 (0-4) % Baso % (Auto) 0.2 (0-2) % Lymph # (Auto) 1.7 (1.2-4.9) X10*3/uL [place] # (Auto) 0.6 (0.1-1.2) X10*3/uL Eos # (Auto) 0.0 (0.0-0.4) X10*3/uL Baso # (Auto) 0.0 (0.0-0.2) X10*3/uL Abs Immat Gran (auto) 0.12 H (0.00-0.03) X10*3/uL Absolute Neuts (auto) 13.0 H (2.0-8.3) x10*3/uL Absolute Nucleated RBC 0.000 (0.0-0.012) X10*3/uL Nucleated RBC % (auto) 0.0 (0.0-0.2) /100WBC Sodium 137 (135-145) mmol/L Potassium 5.1 D (3.3-5.1) mmol/L Chloride 101 (96-108) mmol/L Carbon Dioxide 25 (22-29) mmol/L Anion Gap 16 (12-20) BUN 21 H (9-16) mg/dL Creatinine 0.90 (0.5-1.4) mg/dL Estim Creat Clear Calc 90.4 Estimated GFR > 60 Random Glucose 100 (60-115) mg/dL Calcium 10.0 (8.4-10.2) mg/dL Total Bilirubin 0.5 (0.0-1.0) mg/dL AST 26 (5-31) U/L ALT 23 (0-31) U/L Alkaline Phosphatase 118 H (39-117) U/L Total Protein 8.8 H (6.5-8.0) g/dL Albumin 4.7 (3.5-5.0) g/dL Salicylates < 5.0 L (15-30) mg/dL Acetaminophen < 3 (<30) mcg/mL Ethyl Alcohol < 10 mg/dL Critical Care Time Critical Care Time Critical Care Time: Yes Total Critical Care Time: 35 Attestation: I have personally provided critical care time. Time includes review of lab data, radiology results, discussion with consultants, and monitoring for potential decompensation. Intervention performed as documented. Discharge Plan Discharge Clinical Impression: Polysubstance abuse, Suicidal ideation Patient Disposition: Still a Patient Instructions: Polysubstance Abuse (ED), Suicide Prevention (ED) Prescriptions: No Action methadone [Methadose] 10 mg/mL concentrate 130 mg PO DAILY Patient Comments: verified by last dose letter Rx Instructions: Partial Fill upon patient request. methocarbamol 500 mg Tablet 500 mg PO TID PRN (Reason: for restless leg) 30 Days Qty: 90 0RF bupropion HCl 150 mg Tablet Extended Release 24 Hr 150 mg PO DAILY 30 Days Qty: 30 0RF hydroxyzine HCl 10 mg Tablet 10 mg PO Q6H PRN (Reason: Anxiety) 30 Days Qty: 30 0RF sennosides-docusate sodium [Senna Plus] 8.6-50 mg Tablet 1 tab PO BID PRN (Reason: Constipation) 30 Days Qty: 60 0RF melatonin 3 mg Tablet 6 mg PO BEDTIME PRN (Reason: Insomnia) 30 Days Qty: 60 0RF nicotine (polacrilex) 2 mg Gum 2 mg buccal Q2H PRN (Reason: Nicotine Cravings) 30 Days Qty: 100 0RF gabapentin 400 mg Capsule 400 mg PO TID 30 Days Qty: 90 0RF baclofen 20 mg Tablet 20 mg PO BID 30 Days Qty: 60 0RF buspirone 10 mg Tablet 10 mg PO TID 30 Days Qty: 90 0RF nicotine 21 mg/24 hr Patch 24 Hour 21 mg transdermal DAILY PRN (Reason: nicotine cravings) 28 Days Qty: 28 0RF fluoxetine 10 mg Capsule 30 mg PO DAILY 30 Days Qty: 90 0RF albuterol sulfate [Ventolin HFA] 90 mcg/actuation Hfa Aerosol Inhaler 2 puff inhalation Q4H PRN (Reason: Shortness Of Breath) 30 Days Qty: 6.7 0RF quetiapine 50 mg tablet 50 mg PO TID PRN (Reason: Anxiety) 30 Days Qty: 90 0RF quetiapine 150 mg tablet 150 mg PO BID 30 Days Qty: 60 0RF Interventions: Jeff-Suicide Risk Severity Scale Last Done: 06/01/24 03:53 Print Language: Luxembourgish
[2024-06-01 06:58] VITALS: RESP 16
--- NOTE | 2024-06-01 07:09 | PC.NURSE ---
Assumed care of patient at 0645, patient appears to be sleeping at this time, respirations even and unlabored, no apparent distress noted. Pt is pending CARE team after giving urine sample
[2024-06-01 09:14] LABS: Appearance Urine Turbid; Color Urine Dark Yellow; Glucose Urine UA Negative (Negative); Leukocyte Esterase Urine Trace (Negative); Nitrite Urine Negative (Negative); PH 5.5 (5.0-9.0); Specific Gravity - Urine >= 1.030 (1.005-1.025); UMIC TRIGGER UA YES; Urine Blood Negative (Negative); Urine Ketones Trace mg/dL (Negative); Urine Protein Negative (Neg-Trace)
[2024-06-01 09:16] LABS: UPreg QC Valid YES; Urine Pregnancy NEGATIVE (NEGATIVE)
[2024-06-01] MEDS: busPIRone HCl 10 MG TABLET PO (09:19)
[2024-06-01] MEDS: Gabapentin 400 MG CAPSULE PO (09:19)
[2024-06-01] MEDS: buPROPion HCl XL 150 MG TAB.ER.24H PO (09:19)
[2024-06-01] MEDS: QUEtiapine Fumarate 50 MG TABLET 150 MG PO (09:19)
[2024-06-01 09:25] LABS: Bacteria Urine Trace (None Seen); Hyaline Casts Urine 0-2 /LPF (0-2); RBC Urine 0-2 /HPF (0-2); WBC Urine 0-5 /HPF (0-5)
[2024-06-01 09:33] LABS: Amphetamine Screen Urine Not Detected (Not Detect); Barbiturates, Urine Not Detected (Not Detect); Benzodiazepines Screen Urine Not Detected (Not Detect); Buprenorphine Scr Not Detected (Not Detect); Cannabinoid Screen Urine Not Detected (Not Detect); Cocaine Screen Urine POSITIVE (Not Detect); Fentanyl, urine POSITIVE (Not Detect); Methadone Screen, Urine Positive (Not Detect); Opiate Screen Urine POSITIVE (Not Detect); Oxycodone Screen Urine Not Detected (Not Detect); Phencyclidine Screen Urine Not Detected (Not Detect)
--- NOTE | 2024-06-01 10:05 | HE.PHANOTE ---
METHADONE Dose: 130mg, last dosed 05/31/2024 @0900 per KEON Fallon at [facility].
[2024-06-01] MEDS: Baclofen 20 MG TABLET PO (10:17)
[2024-06-01] MEDS: FLUoxetine HCl 10 MG CAPSULE 30 MG PO (10:17)
[2024-06-01] MEDS: methADONE HCl 20 MG/2 ML ORAL.CONC 130 MG PO (10:22)
--- NOTE | 2024-06-01 11:04 | MHC.CARE ---
Patient accepted to [facility] @ [address] [place] [id number] Riley, ETA 1pm. CARE Team & RN Notified, transport is being booked now.
--- NOTE | 2024-06-01 11:33 | PC.NURSE ---
Pt aware she was accepted to [facility], transport paperwork given to executive legal secretary
[2024-06-01 15:01] VITALS: BP 118/62; PULSE 84; RESP 16; TEMP 37.2; O2SAT 97
== END 2024-06-01 15:04 ==
PROVIDERS: Emergency Provider Emergency Medicine; PCP Nurse Practitioner Primary Care
DX: F33.1 Major depressive disorder, recurrent, moderate (principal); R45.851 Suicidal ideations; F43.9 Reaction to severe stress, unspecified; R10.2 Pelvic and perineal pain; F17.219 Nicotine dependence, cigarettes, with unspecified nicotine-induced disorders; F17.210 Nicotine dependence, cigarettes, uncomplicated; Z79.899 Other long term (current) drug therapy; Z51.81 Encounter for therapeutic drug level monitoring
CPT/HCPCS: 36415; 80053; 80143; 80179; 80307; 81001; 81025; 85025; 99285; S9485